=== PATIENT | male | born 1945 | race Caucasian/White ===

== ENCOUNTER 2017-08-29 10:31 | Inpatient (IN) | payer MEDICARE, BC ==
[2017-08-29] VITALS (20 sets, daily range): BP systolic 98–117; BP diastolic 55–62; PULSE 74–99; RESP 18–30; TEMP 98.8–99.3; O2SAT 92–97
[~2017-08-29] VITALS: Ht 180.3 cm; Wt 91.4 kg
[2017-08-29] MEDS ORDERED: AMLO10 PO (10:58)
[2017-08-29] MEDS ORDERED: VITA100064 PO (10:58)
[2017-08-29] MEDS ORDERED: ALTA10CA12 PO (10:58)
[2017-08-29] MEDS ORDERED: VENTAER INH (10:58)
[2017-08-29] MEDS ORDERED: ASPI-516 CHEW (10:58)
[2017-08-29] MEDS ORDERED: NEXI40CA PO (10:58)
[2017-08-29] MEDS ORDERED: ADVA250A INH (10:58)
[2017-08-29] MEDS ORDERED: SODIUM CHLOR 0.9% 1000 ML INJ 1,000 ML IV SCH (11:01)
--- NOTE | 2017-08-29 11:06 | PD ---
HPI Chief Complaint: Dizziness Time Seen by Provider: 10:45 Travel History International Travel<30 days: No Contact w/Intl Traveler<30days: No Traveled to known affect area: No History of Present Illness HPI This 72-year-old male says he has had increasing dizziness since the beginning of this month. He has not had trouble like this before. [place] he walked on the beach he noted that he was quite lightheaded. By dizziness he does not mean vertigo but a sensation that is going to pass out. He had a sudden loss of hearing in his left ear last week and went to urgent care and was given Medrol dose pack and prescription for meloxicam. He says he stopped taking the meloxicam because it did not seem to be helping he has a history of asthma. He has a history of NE and has had 2 stents placed. He does take aspirin all takes and Norvasc daily. He has a history of Muñoz's esophagus. He has had 5 or 6 colonoscopies but no problem is been found. He has a history of prostate cancer and has had the prostate removed and had 38 radiation treatments in 2003. He has noted some dark stools. He has noted that he has been bruising easily recently. PFSH Past Medical History Asthma: Yes Cancer: Yes (PROSTATE) GERD: Yes Hypertension: Yes Influenza Vaccination: Yes ?: Not Past Surgical History Cholecystectomy: Yes Coronary Stent: Yes (2) Prostatectomy: Yes (PROSTATE CA) Social History Alcohol Use: Yes (RARELY) Tobacco Use: No Substance Use: No Allergies-Medications (Allergen,Severity, Reaction): Coded Allergies: Penicillins (Verified Allergy, Severe, Itching, 08/29/17) Quinolones (Verified Allergy, Severe, Swelling, 08/29/17) acetaminophen (Verified Allergy, Severe, Hives, 08/29/17) hydrocodone (Verified Allergy, Severe, Itching, 08/29/17) meperidine (Verified Allergy, Unknown, 08/29/17) Reported Meds & Prescriptions Reported Meds & Active Scripts Active Reported Vitamin D3 (Cholecalciferol) 1,000 Unit Tab 1,000 Units PO DAILY Ventolin Hfa 18 GM Inh (Albuterol Sulfate) 90 Mcg/Act Aer 2 Puff INH Q6H PRN Advair Diskus Inh (Fluticasone-Salmeterol Inh) 250-50 Mcg/Blist Aer 1 Puff INH BID Rinse mouth after use. Aspirin 81 Mg Chew 81 Mg CHEW DAILY Nexium (Esomeprazole DR) 40 Mg Capdr 40 Mg PO DAILY Norvasc (Amlodipine Besylate) 10 Mg Tab 10 Mg PO DAILY Altace (Ramipril) 10 Mg Cap 10 Mg PO DAILY Review of Systems General / Constitutional: No: Fever, Chills Eyes: No: Diploplia HENT: Positive: Lightheadedness, No: Headaches Cardiovascular: No: Chest Pain or Discomfort, Palpitations Respiratory: No: Cough, Shortness of Breath Gastrointestinal: No: Nausea, Vomiting Genitourinary: No: Urgency, Frequency Musculoskeletal: No: Myalgias, Arthralgias Skin: No Rash, No Itching Neurologic: Positive: Weakness, Dizziness Endocrine: No: Heat Intolerance, Cold Intolerance Hematologic/Lymphatic: Positive: Easy Bruising Physical Exam Narrative GENERAL: Well-developed male. He is somewhat pale SKIN: Focused skin assessment warm/dry. HEAD: Atraumatic. Normocephalic. EYES: Pupils equal and round. No scleral icterus. No injection or drainage. Pale conjunctiva ENT: No nasal bleeding or discharge. Mucous membranes pink and moist. NECK: Trachea midline. No JVD. CARDIOVASCULAR: Regular rate and rhythm. No murmur appreciated. There is an ecchymotic area in the left pectoral region RESPIRATORY: No accessory muscle use. Clear to auscultation. Breath sounds equal bilaterally. GASTROINTESTINAL: Abdomen soft, non-tender, nondistended. Hepatic and splenic margins not palpable. Rectal exam stool is dark and guaiac positive MUSCULOSKELETAL: No obvious deformities. No clubbing. No cyanosis. No edema. NEUROLOGICAL: Awake and alert. No obvious cranial nerve deficits. Motor grossly within normal limits. Normal speech. PSYCHIATRIC: Appropriate mood and affect; insight and judgment normal. Data Data Last Documented VS Vital Signs Date Time Temp Pulse Resp B/P (MAP) Pulse Ox O2 Delivery O2 Flow Rate FiO2 08/29/17 13:51 84 20 110/62 (78) 97 Room Air 08/29/17 10:33 99.0 Orders Orders Complete Blood Count With Diff (08/29/17 11:01) Comprehensive Metabolic Panel (08/29/17 11:01) Prothrombin Time / Inr (Pt) (08/29/17 11:01) Act Partial Throm Time (Ptt) (08/29/17 11:01) Urinalysis - C+S If Indicated (08/29/17 11:01) Type And Screen (08/29/17 11:01) Ecg Monitoring (08/29/17 11:01) Iv Access Insert/Monitor (08/29/17 11:01) Oximetry (08/29/17 11:01) Sodium Chlor 0.9% 1000 Ml Inj (Ns 1000 M (08/29/17 11:01) Sodium Chloride 0.9% Flush (Ns Flush) (08/29/17 11:15) I-Stat Profile (08/29/17 11:15) Red Blood Cells (Rbc) (08/29/17 11:52) Platelet Pheresis (08/29/17 11:52) Ldh Serum (08/29/17 12:16) Haptoglobin (08/29/17 12:16) Ct Brain W/O Iv Contrast(Rout) (08/29/17 12:54) Admit Order (Ed Use Only) (08/29/17 13:48) Labs Laboratory Tests Test 08/29/17 11:15 08/29/17 11:17 White Blood Count 6.5 TH/MM3 Red Blood Count 2.54 MIL/MM3 Hemoglobin 7.8 GM/DL Bedside Hemoglobin G/DL Hematocrit 23.2 % Bedside Hematocrit % Mean Corpuscular Volume 91.4 FL Mean Corpuscular Hemoglobin 30.6 PG Mean Corpuscular Hemoglobin Concent 33.5 % Red Cell Distribution Width 12.4 % Platelet Count 5 TH/MM3 Mean Platelet Volume 6.8 FL Neutrophils (%) (Auto) 46.1 % Lymphocytes (%) (Auto) 30.5 % Monocytes (%) (Auto) 20.6 % Eosinophils (%) (Auto) 2.1 % Basophils (%) (Auto) 0.7 % Neutrophils # (Auto) 3.1 TH/MM3 Lymphocytes # (Auto) 2.0 TH/MM3 Monocytes # (Auto) 1.3 TH/MM3 Eosinophils # (Auto) 0.1 TH/MM3 Basophils # (Auto) 0.0 TH/MM3 CBC Comment AUTO DIFF Differential Total Cells Counted 100 Neutrophils % (Manual) 45 % Lymphocytes % 35 % Monocytes % 18 % Eosinophils % 2 % Neutrophils # (Manual) 2.9 TH/MM3 Nucleated Red Blood Cells 1 /100 WBC Differential Comment FINAL DIFF MANUAL Platelet Estimate RARE Platelet Morphology Comment NORMAL Haptoglobin 129 MG/DL Prothrombin Time 11.2 SEC Prothromb Time International Ratio 1.1 RATIO Activated Partial Thromboplast Time 22.1 SEC Bedside Sodium 140 MMOL/L Bedside Potassium 4.3 MMOL/L Bedside Chloride 102 MMOL/L Bedside Blood Urea Nitrogen 37 MG/DL Bedside Creatinine 1.3 MG/DL Bedside Glucose 113 MG/DL Lactate Dehydrogenase 784 U/L Urine Collection Type CLEAN CATCH Urine Color YELLOW Urine Turbidity CLEAR Urine pH 5.5 Urine Specific [place] 1.015 Urine Protein NEG mg/dL Urine Glucose (UA) NEG mg/dL Urine Ketones NEG mg/dL Urine Occult Blood TRACE Urine Nitrite NEG Urine Bilirubin NEG Urine Urobilinogen 0.2 MG/DL Urine Leukocyte Esterase NEG Urine RBC 4-9 /hpf Urine Squamous Epithelial Cells 0-5 /hpf Urine Hyaline Casts 0-2 /lpf Microscopic Urinalysis Comment CULT NOT INDICATED Urine Collection Time 11:17 [facility] Medical Decision Making Medical Screen Exam Complete: Yes Emergency Medical Condition: Yes Medical Record Reviewed: Yes Differential Diagnosis Differential includes GI bleed, anemia Narrative Course Hemoglobin is 7.8. His platelet count is 5000. PT PTT is normal. I discussed the case with Dr. Garcia. She requests LDH and haptoglobin to screen for hemolytic process. She does recommend platelet transfusion as the patient is actively bleeding. Patient will be transferred to the main hospital to the intensive care unit under Dr. Marcus's care Diagnosis Primary Impression: Anemia Additional Impressions: Thrombocytopenia GI bleed Admitting Information Admitting Physician Requests: Admit Augustus Alvarez MD Aug 29, 2017 11:06
[2017-08-29] MEDS ORDERED: SODIUM CHLORIDE 0.9% FLUSH 10 ML FLUSH IVF PRN (11:15)
[2017-08-29 11:23] LABS: BILIRUBIN, URINE NEG (NEG); BLOOD, URINE TRACE (NEG); GLUCOSE,URINE NEG (NEG); KETONE, URINE NEG (NEG); NITRITE,URINE NEG (NEG); PH, URINE 5.5 (5.0-8.5); URINE COLOR YELLOW (YELLW/STRAW); URINE LEUKOCYTE ESTERASE NEG (NEG)
[2017-08-29 11:34] LABS: AUTOMATED NEUTROPHIL # 3.1 TH/MM3 (1.8-7.7); BASOPHIL % 0.7 % (0.0-2.0); EOSINOPHIL # 0.1 TH/MM3 (0-0.4); EOSINOPHIL % 2.1 % (0.0-4.0); HEMATOCRIT 23.2 % (39.0-51.0); HEMOGLOBIN 7.8 GM/DL (13.0-17.0); LYMPH % 30.5 % (9.0-44.0); MEAN CELL VOLUME 91.4 FL (80.0-100.0); MEAN CORPUSCULAR HEMOGLOBIN 30.6 PG (27.0-34.0); MEAN CORPUSCULAR HGB CONC 33.5 % (32.0-36.0); MEAN PLATELET VOLUME 6.8 FL (7.0-11.0); MONO % 20.6 % (0.0-8.0); MONOCYTE # 1.3 TH/MM3 (0-0.9); NEUT % 46.1 % (16.0-70.0); RED BLOOD COUNT 2.54 MIL/MM3 (4.50-5.90); RED CELL DISTRIBUTION WIDTH 12.4 % (11.6-17.2); WHITE BLOOD COUNT 6.5 TH/MM3 (4.0-11.0)
[2017-08-29 11:41] LABS: PLATELET COUNT 5 TH/MM3 (150-450)
[2017-08-29 11:47] LABS: HYALINE CAST, URINE 0-2 /lpf (RARE)
[2017-08-29 11:48] LABS: SQUAMOUS EPITHELIAL CELL URINE 0-5 /hpf (0-5)
[2017-08-29 11:57] LABS: INTERNATIONAL NORMALIZED RATIO 1.1 RATIO; PROTHROMBIN TIME - PATIENT 11.2 SEC (9.8-11.6)
[2017-08-29 12:01] LABS: CORRECTED NUCLEATED RBC 1 /100 WBC (0-0); LYMPHOCYTES 35 % (9-44); MONOCYTES 18 % (0-8); NEUTROPHIL # MANUAL DIFF 2.9 TH/MM3 (1.8-7.7); NUCLEATED RED BLOOD CELL 1 (0-0); POLYS (SEG NEUTROPHILS) 45 % (16-70)
--- NOTE | 2017-08-29 14:32 | RADRPT ---
EXAM DATE/TIME: 08/29/2017 13:22 [place] COMPARISON: No previous studies available for comparison. INDICATIONS : Dizziness. Thrombocytopenia. Evaluate for hemorrhage. RADIATION DOSE: 59.46 CTDIvol (mGy) MEDICAL HISTORY : Carcinoma, prostate. Cardiovascular disease Gastroesophageal reflux disease.Hypertension. Asthma. SURGICAL HISTORY : Prostatectomy. Cholecystectomy.Coronary artery stent. ENCOUNTER: Initial ACUITY: 2 weeks PAIN SCALE: 0/10 LOCATION: cranial TECHNIQUE: Multiple contiguous axial images were obtained of the head. Using automated exposure control and adj ustment of the mA and/or kV according to patient size, radiation dose was kept as low as reasonably a chievable to obtain optimal diagnostic quality images. DICOM format image data is available electro nically for review and comparison. FINDINGS: CEREBRUM: Focal increased density in the right anterior falx at the mid convexity level. The ventricles are nor mal for age. No evidence of midline shift, mass lesion, hemorrhage or acute infarction. POSTERIOR FOSSA: The cerebellum and brainstem are intact. The 4th ventricle is midline. The cerebellopontine angle i s unremarkable. EXTRACRANIAL: The visualized portion of the orbits is intact. SKULL: The calvaria is intact. No evidence of skull fracture. CONCLUSION: 1. Small focal region of increased density in the anterior falx concerning for hemorrhage. Differenti al considerations include dystrophic calcification. Recommend close interval followup CT examination. Lopez Taylor MD on August 29, 2017 at 13:32 Board Certified Radiologist. This report was verified electronically.
[2017-08-29] MEDS ORDERED: NURSING INFORMATION XX SCH (15:45)
[2017-08-29] MEDS ORDERED: CHLORHEXIDINE GLUCONATE 2 % 1 PACK (2 CLOTHS) TOP PRN (15:45)
[2017-08-29] MEDS: RESP: ALBUTEROL 2.5 MG/IPRATROPIUM 0.5 MG NEB (SCH) INH ×2 (15:57→19:25)
[2017-08-29] MEDS ORDERED: POTASSIUM PHOSPHATE MONOBASIC 500 MG TAB PO/TUBE PRN (16:00)
[2017-08-29] MEDS ORDERED: POTASSIUM CHLOR 40 MEQ PREMIX 100 ML IV PRN ×2 (16:00)
[2017-08-29] MEDS ORDERED: POTASSIUM PHOSPHATE MONOBASIC 500 MG TAB PO PRN (16:00)
[2017-08-29] MEDS ORDERED: MAGNESIUM SULFATE INJ 2 GM in SODIUM CHLORIDE 0.9% INJ 96 ML IV PRN (16:00)
[2017-08-29] MEDS ORDERED: POTASSIUM PHOSPHATE INJ 30 MMOL in SODIUM CHLOR 0.9% 250 ML INJ 250 ML IV PRN (16:00)
[2017-08-29] MEDS ORDERED: LACTULOSE SYRUP 20 GM/30 ML CUP PO PRN (16:00)
[2017-08-29] MEDS ORDERED: POTASSIUM CHLOR 20 MEQ PREMIX 100 ML IV PRN ×2 (16:00)
[2017-08-29] MEDS ORDERED: SODIUM PHOSPHATE INJ 30 MMOL in SODIUM CHLOR 0.9% 250 ML INJ 240 ML IV PRN (16:00)
[2017-08-29] MEDS ORDERED: MAGNESIUM OXIDE 400 MG TAB PO PRN (16:00)
[2017-08-29] MEDS ORDERED: BISACODYL 10 MG SUPP RECTAL PRN (16:00)
[2017-08-29] MEDS ORDERED: RESP: ALBUTEROL 2.5 MG/IPRATROPIUM 0.5 MG NEB (PRN) INH (16:00)
[2017-08-29] MEDS ORDERED: MAGNESIUM SULFATE INJ 4 GM in SODIUM CHLORIDE 0.9% INJ 92 ML IV PRN (16:00)
[2017-08-29] MEDS ORDERED: MAGNESIUM HYDROXIDE SUSP 30 ML CUP PO PRN (16:00)
[2017-08-29] MEDS ORDERED: SENNOSIDES 8.6 MG TAB PO PRN (16:00)
[2017-08-29] MEDS ORDERED: POTASSIUM CHLORIDE 25 MEQ EFFERVESCENT TAB PO PRN (16:00)
[2017-08-29] MEDS: SODIUM CHLOR 0.9% 1000 ML INJ 1,000 ML IV SCH ×2 (16:09→18:57)
--- NOTE | 2017-08-29 17:40 | HHI.HP ---
HPI Service Critical Care Medicine Primary Care Physician Non-Staff Admission Diagnosis GI BLEED, THROMBOCYTOPENIA Diagnosis: Travel History International Travel<30 Days: No Contact w/Intl Traveler <30 Da: No Traveled to Known Affected Are: No History of Present Illness History of Present Illness HPI This is a 72-year-old male that presented to [facility] emergency room with complaints of increasing dizziness since the beginning of this month. Approximately 2 weeks ago he reported to an urgent care center and was diagnosed with benign paroxysmal vertigo and given meclizine Medrol Ebenezer and Ultram. His symptoms progressively worsened and he reported to the emergency room today, after almost falling this morning. The patient discontinued taking meloxicam shortly after the prescription was initiated, stating that it was not helping. He has noted some dark stools. He has noted that he has been bruising easily recently. Patient also complains of acute back pain that started approximately 1 week ago. Laboratory and imaging studies were performed in the ED and the patient was noted to have severe thrombocytopenia with a platelet count of 5 , anemia with a hemoglobin 7.8 . Hematology was consulted and the patient LDH and haptoglobin laboratory studies are pending . CT brain revealed small focal density region possible in the anterior falx concerning for hemorrhage . The patient's medical history is significant for an GA in 2003 at which point he had 2 stents placed. The patient reports he was put on Plavix for several weeks then discontinued, but continues to aspirin. Patient's pertinent medical history also includes hypertension well controlled with Norvasc, Muñoz's esophagus he has had follow-up endoscopies evaluated every 2 years last procedure performed approximately 1 year ago which stated no change and he continues on Nexium. He has a history of prostate cancer and has had the prostate removed and had 38 radiation treatments in 2003. Critical care medicine was consulted. Upon my evaluation the patient was hemodynamically stable BP 104/55, heart rate 91. The patient is planned for stat transfer to [facility], and is pending transfusions of 2 PRBC, 1 of PLTs. Hematology and gastroenterology have been consulted. I have discussed the patient with Dr. Hong. History PFS Past Medical History Asthma: Yes Cancer: Yes (PROSTATE) GERD: Yes Hypertension: Yes Influenza Vaccination: Yes ?: Not Past Surgical History Cholecystectomy: Yes Coronary Stent: Yes (2) Prostatectomy: Yes (PROSTATE CA) Social History Alcohol Use: Yes (RARELY) Tobacco Use: No Substance Use: No Allergies-Medications Allergies-Medications (Allergen,Severity, Reaction): Coded Allergies: Penicillins (Verified Allergy, Severe, Itching, 08/29/17) Quinolones (Verified Allergy, Severe, Swelling, 08/29/17) acetaminophen (Verified Allergy, Severe, Hives, 08/29/17) hydrocodone (Verified Allergy, Severe, Itching, 08/29/17) meperidine (Verified Allergy, Unknown, 08/29/17) Reported Meds & Prescriptions Reported Meds & Active Scripts Active Reported Vitamin D3 (Cholecalciferol) 1,000 Unit Tab 1,000 Units PO DAILY Ventolin Hfa 18 GM Inh (Albuterol Sulfate) 90 Mcg/Act Aer 2 Puff INH Q6H PRN Advair Diskus Inh (Fluticasone-Salmeterol Inh) 250-50 Mcg/Blist Aer 1 Puff INH BID Rinse mouth after use. Aspirin 81 Mg Chew 81 Mg CHEW DAILY Nexium (Esomeprazole DR) 40 Mg Capdr 40 Mg PO DAILY Norvasc (Amlodipine Besylate) 10 Mg Tab 10 Mg PO DAILY Altace (Ramipril) 10 Mg Cap 10 Mg PO DAILY ROS Review of Systems General / Constitutional: No: Fever, Chills Eyes: No: Diploplia HENT: Positive: Lightheadedness, No: Headaches Cardiovascular: No: Chest Pain or Discomfort, Palpitations Respiratory: No: Cough, Shortness of Breath Gastrointestinal: No: Nausea, Vomiting Genitourinary: No: Urgency, Frequency Musculoskeletal: No: Myalgias, Arthralgias Skin: No Rash, No Itching Neurologic: Positive: Weakness, Dizziness Endocrine: No: Heat Intolerance, Cold Intolerance Hematologic/Lymphatic: Positive: Easy Bruising Physical Exam Vital Signs Vital Signs Date Time Temp Pulse Resp B/P (MAP) Pulse Ox O2 Delivery O2 Flow Rate FiO2 08/29/17 16:00 94 21 08/29/17 15:23 88 20 104/55 (71) 95 Room Air 08/29/17 13:51 84 20 110/62 (78) 97 Room Air 08/29/17 12:27 88 20 103/59 (74) 96 Room Air 08/29/17 11:49 74 20 98/58 (71) 95 Room Air 08/29/17 11:19 20 95 Room Air 08/29/17 10:33 99.0 99 18 113/56 (40) 95 Physical Exam GENERAL: Well-developed well-nourished male in mild distress, currently lying semirecumbent on stretcher SKIN: Warm and dry. HEAD: Atraumatic. Normocephalic. EYES: Pupils equal and round. No scleral icterus. No injection or drainage. ENT: No nasal bleeding or discharge. Mucous membranes pink and moist. NECK: Trachea midline. No JVD. CARDIOVASCULAR: Normal rate, regular rhythm. RESPIRATORY: No accessory muscle use. Clear to auscultation. Breath sounds equal bilaterally. GASTROINTESTINAL: Abdomen soft, non-tender, obese nondistended. No guarding. Bowel sounds active. MUSCULOSKELETAL: Extremities without clubbing, cyanosis, or edema. No obvious deformities. NEUROLOGICAL: GCS 15. awake and alert. RASS 0. No gross focal/sensory deficits. Follows commands in all 4 extremities. Laboratory Laboratory Tests Test 08/29/17 11:15 08/29/17 11:17 White Blood Count 6.5 Red Blood Count 2.54 Hemoglobin 7.8 Bedside Hemoglobin Hematocrit 23.2 Bedside Hematocrit Mean Corpuscular Volume 91.4 Mean Corpuscular Hemoglobin 30.6 Mean Corpuscular Hemoglobin Concent 33.5 Red Cell Distribution Width 12.4 Platelet Count 5 Mean Platelet Volume 6.8 Neutrophils (%) (Auto) 46.1 Lymphocytes (%) (Auto) 30.5 Monocytes (%) (Auto) 20.6 Eosinophils (%) (Auto) 2.1 Basophils (%) (Auto) 0.7 Neutrophils # (Auto) 3.1 Lymphocytes # (Auto) 2.0 Monocytes # (Auto) 1.3 Eosinophils # (Auto) 0.1 Basophils # (Auto) 0.0 CBC Comment AUTO DIFF Differential Total Cells Counted 100 Neutrophils % (Manual) 45 Lymphocytes % 35 Monocytes % 18 Eosinophils % 2 Neutrophils # (Manual) 2.9 Nucleated Red Blood Cells 1 Differential Comment FINAL DIFF MANUAL Platelet Estimate RARE Platelet Morphology Comment NORMAL Haptoglobin 129 Prothrombin Time 11.2 Prothromb Time International Ratio 1.1 Activated Partial Thromboplast Time 22.1 Bedside Sodium 140 Bedside Potassium 4.3 Bedside Chloride 102 Bedside Blood Urea Nitrogen 37 Bedside Creatinine 1.3 Bedside Glucose 113 Lactate Dehydrogenase 784 Urine Collection Type CLEAN CATCH Urine Color YELLOW Urine Turbidity CLEAR Urine pH 5.5 Urine Specific [place] 1.015 Urine Protein NEG Urine Glucose (UA) NEG Urine Ketones NEG Urine Occult Blood TRACE Urine Nitrite NEG Urine Bilirubin NEG Urine Urobilinogen 0.2 Urine Leukocyte Esterase NEG Urine RBC 4-9 Urine Squamous Epithelial Cells 0-5 Urine Hyaline Casts 0-2 Microscopic Urinalysis Comment CULT NOT INDICATED Urine Collection Time 11:17 Result Diagram: 08/29/17 1115 Imaging Last Impressions Head CT 08/29/17 1254 Signed Impressions: Service Date/Time: Tuesday, August 29, 2017 13:22 - CONCLUSION: 1. Small focal region of increased density in the anterior falx concerning for hemorrhage. Differential considerations include dystrophic calcification. Recommend close interval followup CT examination. Lopez Taylor MD Septic Shock Reassessment Septic shock perfusion: reassessment completed Caprini VTE Risk Assessment Caprini VTE Risk Assessment: Mod/High Risk (score >= 2) VTE Pharm Contraindication: Thrombocytopenia(<50) Caprini Risk Assessment Model Point Value = 1 Point Value = 2 Point Value = 3 Point Value = 5 Age 41-60 Minor surgery BMI > 25 kg/m2 Swollen legs Varicose veins or History of unexplained or recurrent spontaneous Oral contraceptives or hormone replacement Sepsis (< 1 month) Serious lung disease, including pneumonia (< 1 month) Abnormal pulmonary function Acute myocardial infarction Congestive heart failure (< 1 month) History of inflammatory bowel disease Medical patient at bed rest Age 61-74 Arthroscopic surgery Major open surgery (> 45 min) Laparoscopic surgery (> 45 min) Malignancy Confined to bed (> 72 hours) Immobilizing plaster cast Central venous access Age >= 75 History of VTE Family history of VTE Factor V Leiden Prothrombin [id number] Lupus anticoagulant Anticardiolipin antibodies Elevated serum homocysteine Heparin-induced thrombocytopenia Other congenital or acquired thrombophilia Stroke (< 1 month) Elective arthroplasty Hip, pelvis, or leg fracture Acute spinal cord injury (< 1 month) Prophylaxis Regimen Total Risk Factor Score Risk Level Prophylaxis Regimen 0-1 Low Early ambulation 2 Moderate Order ONE of the following: *Sequential Compression Device (SCD) *Heparin 5000 units SQ BID 3-4 Higher Order ONE of the following medications: *Heparin 5000 units SQ TID *Enoxaparin/Lovenox 40 mg SQ daily (WT < 150 kg, CrCl > 30 mL/min) *Enoxaparin/Lovenox 30 mg SQ daily (WT < 150 kg, CrCl > 10-29 mL/min) *Enoxaparin/Lovenox 30 mg SQ BID (WT < 150 kg, CrCl > 30 mL/min) AND/OR *Sequential Compression Device (SCD) 5 or more Highest Order ONE of the following medications: *Heparin 5000 units SQ TID (Preferred with Epidurals) *Enoxaparin/Lovenox 40 mg SQ daily (WT < 150 kg, CrCl > 30 mL/min) *Enoxaparin/Lovenox 30 mg SQ daily (WT < 150 kg, CrCl > 10-29 mL/min) *Enoxaparin/Lovenox 30 mg SQ BID (WT < 150 kg, CrCl > 30 mL/min) AND *Sequential Compression Device (SCD) Assessment and Plan Problem List: (1) Anemia ICD Code: D64.9 - Anemia, unspecified Status: Acute (2) Thrombocytopenia ICD Code: D69.6 - Thrombocytopenia, unspecified Status: Acute (3) GI bleed ICD Code: K92.2 - Gastrointestinal hemorrhage, unspecified Status: Acute (4) Prostate cancer ICD Code: C61 - Malignant neoplasm of prostate Status: Resolved (5) Hypertension ICD Code: I10 - Essential (primary) hypertension Status: Chronic (6) Asthma ICD Code: J45.909 - Unspecified asthma, uncomplicated Status: Chronic (7) History of GA (myocardial infarction) ICD Code: I25.2 - Old myocardial infarction (8) Back pain ICD Code: M54.9 - Dorsalgia, unspecified Status: Acute (9) BMI 30.0-30.9,adult ICD Code: Z68.30 - Body mass index (BMI) 30.0-30.9, adult Status: Chronic Assessment and Plan Assessment This is a 72-year-old male with anemia and severe thrombocytopenia now presenting with progressive dizziness severe back pain, brain imaging study suggestive of possible hemorrhage. The patient is critically ill. Admit to ICU. Plan by systems: Neurologic: Possible hemorrhage Back pain 08/29-CT brain small focal region increased density in anterior falx concerning for hemorrhage Repeat CT brain in 12 hours-rule out hemorrhage Obtain CT thoracic and lumbar Neuro checks per ICU protocol Avoid sedative type medications Strict bedrest Obtain carotid Doppler studies Has allergy to acetaminophen, consider small doses of fentanyl if needed for pain scale 7-10 Respiratory: Asthma Duo nebs every 6 hours scheduled and every 2 hours as needed Continue Advair daily, patient's home med and Ventolin as needed Patient's last asthma attack approximately 6 months Provide O2 1-4 L/min if needed to maintain O2 saturation greater than 92% Incentive spirometry while awake Cardiovascular: History of GA- S/P stent placement 2 (2003) Coronary artery disease Hypertension maintain mean arterial pressure greater than 65 Continue Norvasc patient's home medication, will hold Ramipril for now Patient normally takes aspirin daily will hold for now Obtain baseline EKG Telemetry showing sinus rhythm Labetalol 10 mg every 6 hours for systolic blood pressure greater than 160 Renal: History of prostate cancer status post XRT No [place] indicated at this time -- Strict I/Os FEN/GI: Muñoz's esophagus GI bleed Obtain BMP follow-up result Electrolyte replacements per ICU protocol Maintain n.p.o. status for now Zofran for nausea Protonix GI prophylaxis normal saline 84 cc/hour GI consulted discussed w/ Dr. Hong Heme/ID: Anemia Thrombocytopenia Heme-Onc consulted Dr. Duron discussed case with Dr. Rosario Follow-up LDH and haptoglobin level Transfused 2 units of packed red blood cells, and one 6 pack of platelets repeat labs 1 hour posttransfusion Endocrine: Glucose monitoring per ICU protocol -- SSI Prophylaxis: GI Prophylaxis Famotidine DVT Prophylaxis -- SCDs No chemical DVT prophylaxis in the setting of thrombocytopenia Lines: Peripheral IVs 2 providing adequate access. Central line if indicated Dispo: my billing statement This patient remains critically ill with one or more organ systems which are or may become a threat to life. I have spent in excess of 49 minutes discontinuously in the care and management of this patient. This time is exclusive of procedures, and includes, but is not limited to, evaluation of the patient, review of the medical record, discussions with family, consultants, nursing staff, or respiratory therapy, and documentation in the medical record. Code Status Full Discussed Condition With Discussed case with Dr. Rosario, Dr. Hong, ED RN, GEAR DESIGN ENGINEER (Ame) Problem Qualifiers (1) Anemia: Qualified Codes: D64.9 - Anemia, unspecified (2) Back pain: Qualified Codes: M54.9 - Dorsalgia, unspecified Trudy Marcus MD Aug 29, 2017 17:40
--- NOTE | 2017-08-29 20:44 | MB ---
cc: Shahla Duron MD,Trudy Mercer MD DATE: 08/29/2017 REFERRING PHYSICIAN: Dr. Trudy Marcus. CHIEF COMPLAINT: Dr. Marcus requests a consultation for Mr. Rico with severe thrombocytopenia associated with anemia. HISTORY OF PRESENT ILLNESS: Mr. Rico is a 72-year-old man with multiple medical problems. He has a history of prostate cancer, status post prostatectomy. He has coronary artery disease, status post stent placement. He has had a recent fall before coming down to [place] and had a rotator cuff injury. He has had a series of physical therapy. He and his have come down to [place] 08/12/2017. He was doing fine, walking on the beach. On the fourth night, he developed severe back pain, prompting him to buy Icy Hot compress in the pharmacy across the street. The temporary relief did not work. This prompted him to go to the urgent care center where he was given a course of anti-inflammatory medication and pain medication, which he states helped somewhat. He developed progressive symptoms of shortness of breath. He noticed some bruising over the past week. He lost the hearing in his left ear all of the sudden. It has not returned. Because of the hearing he went into the urgent care, a second time. He had worsening dizziness. He had a sensation of passing out and therefore came to the emergency room. He was seen by Dr. Tirado earlier on in the afternoon. CBC shows a hemoglobin of 7.8, platelet count of 5000, mean platelet volume was low. His BUN is 37, creatinine 1.3. The case was discussed with Dr. Tirado. An LDH was sent and it was elevated at 784. Haptoglobin is normal, which argues against a microangiopathic hemolytic anemia. However, he was noted to have heme positive stools after a rectal examination. There is a questionable history of dark stools. Mr. Rico was admitted to the ICU and subsequently transferred to [facility] under the care of Dr. Marcus. He is in the process of receiving his second unit of platelet transfusion. He has bruising and petechia on his abdomen. He has no overt bleed. His urine is clear. Hematology/Oncology is consulted for the cytopenias. On further questioning, Mr. Rico denies any fevers. He was, however, with low grade temperature until his blood transfusions. He has a low saturation. His back pain is in his mid back. His hearing has not returned. His CT scan of the head is significant for a small focal region of increased density in the falx concerning for hemorrhage. No abnormality noted in the middle ear, although the current imaging study may not be sensitive enough to detect that. He had sweats almost weekly while he was down here. He was not having sweats,back home. He denies any problems with the blood previously. He was under the care of a primary physician and is up-to-date with his screening examination. He has a history of Muñoz's esophagus that is viewed every 2 years and has not changed. His colonoscopy was negative. He denies any headaches or vision changes. The rest of his review of systems is negative. PAST MEDICAL HISTORY: Prostate cancer, asthma, gastroesophageal reflux, Muñoz's esophagus, hypertension, new anemia, new thrombocytopenia, rotator cuff injury, back pain. PAST SURGICAL HISTORY: Prostatectomy, cholecystectomy, coronary stent placement, thoracentesis for a pleural effusion. SOCIAL HISTORY: He drinks alcohol rarely. Denies any tobacco or illicit drug use. He is . He is with his down in [place] for the month. ALLERGIES: PENICILLIN, QUINOLONES, acetaminophen, hydrocodone, MEPERIDINE. CURRENT MEDICATIONS: 1. Protonix. 2. Norvasc. 3. Chlorhexidine. 4. Madina-Colace. 5. Symbicort. 6. Albuterol. 7. Fentanyl p.r.n. 8. Ondansetron p.r.n. 9. DuoNebs p.r.n. 10. Senna p.r.n. 11. Lactulose p.r.n. PHYSICAL EXAMINATION: VITAL SIGNS: Temperature 98.8, heart rate 85, respiratory rate 26, blood pressure 114/56, saturation 93%. GENERAL: Mr. Rico is a well-developed, robust-appearing, 72-year-old man with generalized pallor. EYES: Her pupils round, reactive to light and accommodation. Conjunctivae are pale. Oropharynx is clear. NECK: Supple. SKIN: There is bruising on his upper arms. LUNGS: Clear. CARDIOVASCULAR: Reveals normal rate and rhythm. ABDOMEN: Distended, large, but benign. Petechia noted. EXTREMITIES: Lower extremity with mild asymmetry which is chronic. Left leg is more prominent than the right. He has an old injury. He has occasional petechia on the lower extremity and some bruising. LABORATORY DATA: As described above. ASSESSMENT AND PLAN: Mr. Rico is a 72-year-old man with multiple medical problems. He presents with severe thrombocytopenia and anemia, symptomatic. I discussed with Mr. Rico my concern for underlying bone marrow disorder. He has a normocytic anemia and a platelet count that has decreased, which is unlike idiopathic thrombocytopenic purpura given the decrease in the mean platelet volume. He also has bone pain, back pain, as well as the sweats that suggests a more systemic manifestation of bone marrow disorder. I will review peripheral smear. Ultimately, I suspect we will need a bone marrow biopsy evaluation to determine the nature of the above. Nucleated red cells are seen on peripheral smear. There are no acute blasts. LDH is elevated, which argues for underlying bone marrow disorder. He is being transfused platelets at present. I plan to check a post-platelet transfusion platelet count. This will assist us in ruling out or excluding ITP. If it were ITP his platelet count would not increase. Our goal is to keep his platelet count above 20,000. He does not appear to be acutely bleeding. He gives a questionable history of dark stools. He reports that he was surprised that the stool Hemoccult was positive, which was done via a rectal exam and a platelet count of 5000. Red cell transfusions are also in order. We will check a Lamont test to rule out hemolytic anemia/Kahn syndrome. Normal haptoglobin argues against this. TTP is considered. There is no thrombotic process. He has low-grade temperature. The LDH is high, but not significantly high. I am unable to exclude TTP completely. A peripheral smear will be reviewed for schistocytes. The LDH will be monitored. An empiric transfusion of FFP will be given. His hearing loss will be evaluated with MRI. MD GABY Harris/JONATHAN , 08:03 PM , 08:43 PM
[2017-08-29] MEDS: DOCUSATE SODIUM 50 MG/SENNA 8.6 MG TAB PO SCH (21:00)
[2017-08-29] MEDS ORDERED: NON-FORMULARY DRUG (Fluticasone-Salmeterol Inh (Advair Diskus Inh) 1 PUFF) INH SCH (21:00)
[2017-08-29] MEDS: BUDESONIDE-FORMOTEROL 160/4.5 MCG INHALER INH SCH (21:19)
[2017-08-29] MEDS: SODIUM CHLORIDE 0.9% FLUSH 10 ML FLUSH IV FLUSH SCH (21:20)
[2017-08-29 21:57] LABS: AUTOMATED NEUTROPHIL # 1.9 TH/MM3 (1.8-7.7); BASOPHIL # 0.1 TH/MM3 (0-0.2); BASOPHIL % 1.3 % (0.0-2.0); EOSINOPHIL # 0.1 TH/MM3 (0-0.4); EOSINOPHIL % 1.9 % (0.0-4.0); LYMPH % 35.1 % (9.0-44.0); LYMPHOCYTE # 2.4 TH/MM3 (1.0-4.8); MEAN CELL VOLUME 92.1 FL (80.0-100.0); MEAN CORPUSCULAR HEMOGLOBIN 32.8 PG (27.0-34.0); MEAN CORPUSCULAR HGB CONC 35.6 % (32.0-36.0); MONO % 33.7 % (0.0-8.0); MONOCYTE # 2.3 TH/MM3 (0-0.9); PLATELET COUNT 47 TH/MM3 (150-450); RED BLOOD COUNT 2.13 MIL/MM3 (4.50-5.90); RED CELL DISTRIBUTION WIDTH 13.4 % (11.6-17.2); WHITE BLOOD COUNT 6.8 TH/MM3 (4.0-11.0)
[2017-08-29 22:24] LABS: HEMATOCRIT 19.7 % (39.0-51.0)
[2017-08-29 22:28] LABS: ALBUMIN 2.9 GM/DL (3.4-5.0); AST (GOT) 31 U/L (15-37); BICARBONATE 23.2 MEQ/L (21.0-32.0); BLOOD UREA NITROGEN 31 MG/DL (7-18); CHLORIDE 108 MEQ/L (98-107); CREATININE 1.03 MG/DL (0.60-1.30); DIRECT BILIRUBIN ADULT 0.3 MG/DL (0.0-0.2); GLOMERULAR FILTRATION RATE 71 ML/MIN (>89); GLUCOSE,RANDOM 82 MG/DL (74-106); SODIUM (NA) 144 MEQ/L (136-145)
[2017-08-29 22:31] LABS: ALKALINE PHOSPHATASE 78 U/L (45-117); ALT (GPT) 28 U/L (12-78); INDIRECT BILIRUBIN 0.8 MG/DL (0.0-0.8); PHOSPHORUS 3.6 MG/DL (2.5-4.9); TOTAL BILIRUBIN ADULT 1.1 MG/DL (0.2-1.0); TOTAL PROTEIN 5.8 GM/DL (6.4-8.2)
[2017-08-29 22:32] LABS: RETIC % 0.7 % (0.4-3.0)
[2017-08-29 23:24] LABS: BANDS 18 % (0-6); BASOPHILS 2 % (0-2); BLASTS 18 % (0-0); CORRECTED NUCLEATED RBC 6 /100 WBC (0-0); LYMPHOCYTES 31 % (9-44); METAMYELOCYTES 1 % (0-1); MONOCYTES 4 % (0-8); NEUTROPHIL # MANUAL DIFF 3.1 TH/MM3 (1.8-7.7); NUCLEATED RED BLOOD CELL 6 (0-0); POLYS (SEG NEUTROPHILS) 26 % (16-70)
[2017-08-30] VITALS (35 sets, daily range): BP systolic 119–152; BP diastolic 57–74; PULSE 82–98; RESP 20–46; TEMP 98.4–98.9; O2SAT 90–97
--- NOTE | 2017-08-30 02:28 | RADRPT ---
EXAM DATE/TIME: 08/30/2017 01:37 [facility] COMPARISON: CT BRAIN W/O CONTRAST, August 29, 2017, 13:22. INDICATIONS : Follow up hemmorhage. RADIATION DOSE: 66.34 CTDIvol (mGy) MEDICAL HISTORY : Hypertension. Carcinoma, prostate. Cardiovascular disease. SURGICAL HISTORY : Coronary artery stent. ENCOUNTER: Subsequent ACUITY: 2 days PAIN SCALE: 0/10 LOCATION: cranial TECHNIQUE: Multiple contiguous axial images were obtained of the head. Using automated exposure control and adj ustment of the mA and/or kV according to patient size, radiation dose was kept as low as reasonably a chievable to obtain optimal diagnostic quality images. DICOM format image data is available electro nically for review and comparison. FINDINGS: 1 cm focus of perifalcine subdural blood again seen in the frontal region, not significantly changed. No new or other areas of hemorrhage demonstrated. No mass, mass effect or midline shift. There is no evidence of an acute ischemic event. CONCLUSION: Small frontal maddy-falcine subdural blood is unchanged. Tim Jones MD on August 30, 2017 at 2:25 Board Certified Radiologist. This report was verified electronically.
--- NOTE | 2017-08-30 02:32 | RADRPT ---
EXAM DATE/TIME: 08/30/2017 01:37 [facility] COMPARISON: No previous studies available for comparison. INDICATIONS : Back pain. RADIATION DOSE: 31.39 CTDIvol (mGy) ; Combined studies - Thoracic Spine/Lumbar Spine MEDICAL HISTORY : Carcinoma, prostate. Hypertension. SURGICAL HISTORY : Coronary artery stent. Prostatectomy. ENCOUNTER: Initial ACUITY: 1 day PAIN SCALE: 8/10 LOCATION: Paraspinal TECHNIQUE: Volumetric scanning of the thoracic spine was performed. Multiplanar reconstructions in the sagittal , coronal and oblique axial planes were performed. Using automated exposure control and adjustment o f the mA and/or kV according to patient size, radiation dose was kept as low as reasonably achievable to obtain optimal diagnostic quality images. DICOM format image data is available electronically f or review and comparison. FINDINGS: There is levoconvex curvature of the upper thoracic spine. The thoracic kyphosis is slightly exaggera kareem. No fractures or subluxations are demonstrated. Vertebral bodies have normal height. Mild disc space narrowing and very mild anterolateral osseous ridging seen at essentially all levels. There is also mild, diffuse costovertebral and facet osteoarthritis. No focal bone lesion of the thoracic spine. Complex appearing cysts are seen of the upper poles of each kidney measuring approximately 3.6 cm on the right and 3.5 cm on the left. CONCLUSION: 1. No fracture, subluxation or other acute abnormality of the thoracic spine. 2. Scoliosis and mild multifocal degenerative changes as above. 3. Complex appearing cystic structures of the upper poles of both kidneys. Comparison to any previous outside facility studies is recommended to confirm chronicity and stability. Contrast enhanced study of the abdomen suggested if felt clinically indicated, preferably MRI if there are no contraindicati ons. Tim Jones MD on August 30, 2017 at 2:27 Board Certified Radiologist. This report was verified electronically.
--- NOTE | 2017-08-30 02:38 | RADRPT ---
EXAM DATE/TIME: 08/30/2017 01:37 [facility] COMPARISON: No previous studies available for comparison. INDICATIONS : Back pain. RADIATION DOSE: 31.39 CTDIvol (mGy) ; Combined studies - Thoracic Spine/Lumbar Spine MEDICAL HISTORY : Carcinoma, prostate. Hypertension. SURGICAL HISTORY : Coronary artery stent. Prostatectomy. ENCOUNTER: Initial ACUITY: 1 day PAIN SCALE: 8/10 LOCATION: Paraspinal TECHNIQUE: Volumetric scanning of the lumbar spine was performed. Multiplanar reconstructions in the sagittal, coronal and oblique axial planes were performed. Using automated exposure control and adjustment of the mA and/or kV according to patient size, radiation dose was kept as low as reasonably achievable t o obtain optimal diagnostic quality images. DICOM format image data is available electronically for review and comparison. FINDINGS: Chronic L5 pars defect on the left and severe L5/S1 facet osteoarthritis on the right present. There is approximately 3 mm of anterolisthesis of L5 on S1 that appears chronic. Lumbar spine alignment is otherwise normal. No fracture or subluxation. Vertebral bodies have normal height. A 2.4 cm benign he mangioma is seen towards the left of the L1 vertebral body. Mild disc space narrowing and a small, broad/diffuse disc protrusion with moderate bilateral facet os teoarthritis and thickening of the ligamentum flavum seen at L5/S1. There is associated mild spinal a nd bilateral foraminal stenosis. Small, broad/diffuse protrusion at L5/S1. Combined with the previously mentioned anterolisthesis and facet degenerative changes, there is mild right and moderate left foraminal stenosis at this level. N o significant spinal stenosis. CONCLUSION: 1. No acute fracture or acute subluxation of the lumbar spine. 2. 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 3. Mild spinal and bilateral foraminal stenosis at L4/L5. 4. Mild right and moderate left foraminal stenosis at L5/S1. 5. Benign vertebral body hemangioma of L1. No concerning lumbar spine bone lesion. Tim Jones MD on August 30, 2017 at 2:32 Board Certified Radiologist. This report was verified electronically.
[2017-08-30] MEDS: RESP: ALBUTEROL 2.5 MG/IPRATROPIUM 0.5 MG NEB (SCH) INH ×4 (02:44→19:37)
[2017-08-30] MEDS: CHLORHEXIDINE GLUCONATE 2 % 1 PACK (2 CLOTHS) TOP SCH (04:00)
--- NOTE | 2017-08-30 08:38 | RADRPT ---
EXAM DATE/TIME: 08/30/2017 07:52 [facility] COMPARISON: No previous studies available for comparison. INDICATIONS : Syncope. MEDICAL HISTORY : Hypertension. Gastroesophageal reflux disease. Asthma. Prostate cancer. SURGICAL HISTORY : Prostatectomy. Cholecystectomy. Coronary stent. ENCOUNTER: Initial ACUITY: 2 weeks PAIN SCORE: 8/10 LOCATION: Bilateral neck PEAK SYSTOLIC VELOCITIES (cm/sec): ICA/CCA RATIO: Right: 1.3 Left: 0.9 ICA: Right: 140 Left: 144 CCA: Right: 109 Left: 165 ECA: Right: 169 Left: 156 VERTEBRAL: Right: 87 antegrade Left: 64 antegrade Elevated flow velocities and ICA/CCA ratios have been found to correlate with increased degrees of vessel stenosis, calculated as percentage of diameter relative to a normal segment of distal ICA/CCA FINDINGS: RIGHT CAROTID: Moderate diffuse calcified plaque in the common carotid, bulb and proximal ICA. Resultant moderate, 5 0-69%, stenosis. LEFT CAROTID: Moderate diffuse calcified plaque in the common carotid, bulb and proximal ICA. Resultant moderate, 5 0-69%, stenosis of the internal carotid and likely moderate stenosis of the common carotid artery. VERTEBRAL ARTERIES: Antegrade flow is seen in both vertebral arteries. MISCELLANEOUS: None. CONCLUSION: 1. Diffuse calcified plaque throughout carotid arteries bilaterally with resultant moderate, 50-69%, stenosis of the internal carotid arteries bilaterally and likely moderate stenosis of the left common carotid artery. 2. Antegrade vertebral artery flow bilaterally. Lopez Taylor MD on August 30, 2017 at 8:22 Board Certified Radiologist. This report was verified electronically.
[2017-08-30] MEDS: SODIUM CHLORIDE 0.9% FLUSH 10 ML FLUSH IV FLUSH SCH ×2 (09:00→19:29)
--- NOTE | 2017-08-30 09:05 | HHI.CCPN ---
Subjective Remarks/Hospital Course This is a 72-year-old male that presented to [facility] emergency room with complaints of increasing dizziness since the beginning of this month. Approximately 2 weeks ago he reported to an urgent care center and was diagnosed with benign paroxysmal vertigo and given meclizine Medrol Ebenezer and Ultram. His symptoms progressively worsened and he reported to the emergency room today, after almost falling this morning. The patient discontinued taking meloxicam shortly after the prescription was initiated, stating that it was not helping. He has noted some dark stools. He has noted that he has been bruising easily recently. Patient also complains of acute back pain that started approximately 1 week ago. Laboratory and imaging studies were performed in the ED and the patient was noted to have severe thrombocytopenia with a platelet count of 5 , anemia with a hemoglobin 7.8 . Hematology was consulted and the patient LDH and haptoglobin laboratory studies are pending . CT brain revealed small focal density region possible in the anterior falx concerning for hemorrhage . The patient's medical history is significant for an NC in 2003 at which point he had 2 stents placed. The patient reports he was put on Plavix for several weeks then discontinued, but continues to aspirin. Patient's pertinent medical history also includes hypertension well controlled with Norvasc, Muñoz's esophagus he has had follow-up endoscopies evaluated every 2 years last procedure performed approximately 1 year ago which stated no change and he continues on Nexium. He has a history of prostate cancer and has had the prostate removed and had 38 radiation treatments in 2003. Critical care medicine was consulted. Upon my evaluation the patient was hemodynamically stable BP 104/55, heart rate 91. The patient is planned for stat transfer to [facility], and is pending transfusions of 2 PRBC, 1 of PLTs. Hematology and gastroenterology have been consulted. I have discussed the patient with Dr. Hong. Subjective: 08/30: T-max 99 3. The patient continued to run low-grade fevers through the night. Patient noted to have bands 18%. Will obtain lactic acid, blood cultures pending. The patient received 2 units packed red blood cells and platelets. Repeat CBC with differential pending. MRI pending this a.m.. Small subdural noted on repeat CT brain,neurosurgery consulted. Will repeat CT brain in am. Objective Vital Signs Date Time Temp Pulse Resp B/P (MAP) Pulse Ox O2 Delivery O2 Flow Rate FiO2 08/30/17 06:00 89 08/30/17 06:00 26 119/61 (80) 92 08/30/17 04:00 98.9 08/29/17 17:00 Room Air 08/29/17 16:00 21 Intake and Output 08/30/17 08/30/17 08/31/17 08:00 16:00 00:00 Intake Total 651 ml Output Total 1700 ml Balance -1049 ml Result Diagram: 08/29/17204808/29/172048 Imaging Last Impressions Thoracic Spine CT 08/30/17 0100 Signed Impressions: Service Date/Time: August 01:37 - CONCLUSION: 1. No fracture, subluxation or other acute abnormality of the thoracic spine. 2. Scoliosis and mild multifocal degenerative changes as above. 3. Complex appearing cystic structures of the upper poles of both kidneys. Comparison to any previous outside facility studies is recommended to confirm chronicity and stability. Contrast enhanced study of the abdomen suggested if felt clinically indicated, preferably MRI if there are no contraindications. Tim Jones MD Lumbar Spine CT 08/30/17 0100 Signed Impressions: Service Date/Time: August 01:37 - CONCLUSION: 1. No acute fracture or acute subluxation of the lumbar spine. 2. 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 3. Mild spinal and bilateral foraminal stenosis at L4/L5. 4. Mild right and moderate left foraminal stenosis at L5/S1. 5. Benign vertebral body hemangioma of L1. No concerning lumbar spine bone lesion. Tim Jones MD Head CT 08/30/17 0100 Signed Impressions: Service Date/Time: August 01:37 - CONCLUSION: Small frontal maddy-falcine subdural blood is unchanged. Tim Jones MD Last Impressions Head CT 08/29/17 1254 Signed Impressions: Service Date/Time: Tuesday, August 29, 2017 13:22 - CONCLUSION: 1. Small focal region of increased density in the anterior falx concerning for hemorrhage. Differential considerations include dystrophic calcification. Recommend close interval followup CT examination. Lopez Taylor MD Objective Remarks GENERAL: Well-developed well-nourished male in no distress SKIN: Warm and dry. HEAD: Atraumatic. Normocephalic. EYES: Pupils equal and round. Pupils 2 mm and brisk. No scleral icterus. No injection or drainage. ENT: No nasal bleeding or discharge. Mucous membranes pink and moist. NECK: Trachea midline. No JVD. CARDIOVASCULAR: Normal rate, regular rhythm. RESPIRATORY: No accessory muscle use. Clear to auscultation. Breath sounds equal bilaterally. GASTROINTESTINAL: Abdomen soft, non-tender, obese nondistended. No guarding. Bowel sounds active. MUSCULOSKELETAL: Extremities without clubbing, cyanosis, or edema. No obvious deformities. NEUROLOGICAL: GCS 15. awake and alert. RASS 0. No gross focal/sensory deficits. Follows commands in all 4 extremities. A/P Problem List: (1) Anemia ICD Code: D64.9 - Anemia, unspecified Status: Acute (2) Thrombocytopenia ICD Code: D69.6 - Thrombocytopenia, unspecified Status: Acute (3) GI bleed ICD Code: K92.2 - Gastrointestinal hemorrhage, unspecified Status: Acute (4) Prostate cancer ICD Code: C61 - Malignant neoplasm of prostate Status: Resolved (5) Hypertension ICD Code: I10 - Essential (primary) hypertension Status: Chronic (6) Asthma ICD Code: J45.909 - Unspecified asthma, uncomplicated Status: Chronic (7) History of NC (myocardial infarction) ICD Code: I25.2 - Old myocardial infarction (8) Back pain ICD Code: M54.9 - Dorsalgia, unspecified Status: Acute (9) BMI 30.0-30.9,adult ICD Code: Z68.30 - Body mass index (BMI) 30.0-30.9, adult Status: Chronic Assessment and Plan Plan by systems: Neurologic: Subdural bleed 1 cm Back pain 08/29-CT brain small focal region increased density in anterior falx concerning for hemorrhage 08/30-repeat CT brain-Small 1 cm frontal maddy-falcine subdural blood is unchanged Repeat CT brain in am MRI pending this am Consult neurosurgery 08/29 CT thoracic- No fracture, subluxation or other acute abnormality of the thoracic spine. Scoliosis and mild multifocal degenerative changes. 08/29 CT lumbar- No acute fracture or acute subluxation of the lumbar spine. 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 Mild spinal and bilateral foraminal stenosis at L4/L5. Mild right and moderate left foraminal stenosis at L5/S1. Benign vertebral body hemangioma of L1. No concerning lumbar spine bone lesions. Neuro checks per ICU protocol Avoid sedative type medications Strict bedrest Obtain carotid Doppler studies Has allergy to acetaminophen, consider small doses of fentanyl if needed for pain scale 7-10 Respiratory: Asthma Duo nebs every 6 hours scheduled and every 2 hours as needed Continue Advair daily, patient's home med and Ventolin as needed Patient's last asthma attack approximately 6 months ago Provide O2 1-4 L/min if needed to maintain O2 saturation greater than 92% Incentive spirometry while awake Cardiovascular: History of NC- S/P stent placement 2 (2003) Coronary artery disease Hypertension maintain mean arterial pressure greater than 65 Continue Norvasc patient's home medication and Ramipril Patient normally takes aspirin daily will hold for now Obtain baseline EKG Telemetry showing sinus rhythm Labetalol 10 mg every 6 hours for systolic blood pressure greater than 160 Renal: History of prostate cancer status post XRT No [place] indicated at this time -- Strict I/Os FEN/GI: Muñoz's esophagus GI bleed Obtain BMP follow-up result Electrolyte replacements per ICU protocol Maintain n.p.o. status for now IVF NS 84cc/hr Zofran for nausea Protonix GI prophylaxis GI consulted discussed w/ Dr. Hong Heme/ID: Anemia Thrombocytopenia Heme-Onc- following LDH- 782 F/U haptoglobin level Transfused 2 units of packed red blood cells, and one 6 pack of platelets repeat labs 1 hour posttransfusion Endocrine: Glucose monitoring per ICU protocol -- SSI Prophylaxis: GI Prophylaxis Famotidine DVT Prophylaxis -- SCDs No chemical DVT prophylaxis in the setting of thrombocytopenia Lines: Peripheral IVs 2 providing adequate access. Central line if indicated Dispo: Level [facility]. [facility] Contact[facility] Heme Onc to provide update on radiological findings. Physician Trudy Marcus Problem Qualifiers (1) Anemia: Qualified Codes: D64.9 - Anemia, unspecified (2) Back pain: Qualified Codes: M54.9 - Dorsalgia, unspecified Trudy Marcus MD Aug 30, 2017 09:05
[2017-08-30 09:11] LABS: ALBUMIN 3.1 GM/DL (3.4-5.0); AST (GOT) 31 U/L (15-37); BICARBONATE 20.7 MEQ/L (21.0-32.0); BLOOD UREA NITROGEN 41 MG/DL (7-18); CALCIUM 9.6 MG/DL (8.5-10.1); CHLORIDE 107 MEQ/L (98-107); CREATININE 1.39 MG/DL (0.60-1.30); GLOMERULAR FILTRATION RATE 50 ML/MIN (>89); GLUCOSE,RANDOM 108 MG/DL (74-106); SODIUM (NA) 142 MEQ/L (136-145)
[2017-08-30 09:11] LABS: HEMATOCRIT 24.2 % (39.0-51.0); HEMOGLOBIN 8.7 GM/DL (13.0-17.0); MEAN CELL VOLUME 90.7 FL (80.0-100.0); MEAN CORPUSCULAR HEMOGLOBIN 32.7 PG (27.0-34.0); MEAN PLATELET VOLUME 6.8 FL (7.0-11.0); PLATELET COUNT 37 TH/MM3 (150-450); RED BLOOD COUNT 2.66 MIL/MM3 (4.50-5.90); RED CELL DISTRIBUTION WIDTH 13.5 % (11.6-17.2); WHITE BLOOD COUNT 7.4 TH/MM3 (4.0-11.0)
[2017-08-30 09:12] LABS: ALT (GPT) 28 U/L (12-78)
[2017-08-30 09:14] LABS: ALKALINE PHOSPHATASE 83 U/L (45-117); TOTAL BILIRUBIN ADULT 0.7 MG/DL (0.2-1.0)
[2017-08-30 09:16] LABS: MEAN CORPUSCULAR HGB CONC 36.1 % (32.0-36.0)
[2017-08-30 09:23] LABS: INTERNATIONAL NORMALIZED RATIO 1.1 RATIO; PROTHROMBIN TIME - PATIENT 11.3 SEC (9.8-11.6)
[2017-08-30] MEDS ORDERED: GADODIAMIDE PF 287 MG/ML 20 ML VIAL (for RAD MRI) IVCONTRAST ONE (09:45)
[2017-08-30 09:47] LABS: ALBUMIN 3.2 GM/DL (3.4-5.0); AST (GOT) 31 U/L (15-37); BICARBONATE 23.1 MEQ/L (21.0-32.0); BLOOD UREA NITROGEN 22 MG/DL (7-18); CALCIUM 9.5 MG/DL (8.5-10.1); CHLORIDE 107 MEQ/L (98-107); CREATININE 0.96 MG/DL (0.60-1.30); GLOMERULAR FILTRATION RATE 77 ML/MIN (>89); GLUCOSE,RANDOM 85 MG/DL (74-106); SODIUM (NA) 144 MEQ/L (136-145)
[2017-08-30 09:50] LABS: ALKALINE PHOSPHATASE 89 U/L (45-117); ALT (GPT) 27 U/L (12-78); TOTAL BILIRUBIN ADULT 1.4 MG/DL (0.2-1.0); TOTAL PROTEIN 6.3 GM/DL (6.4-8.2)
[2017-08-30 10:08] LABS: BANDS 25 % (0-6); BASOPHILS 2 % (0-2); BLASTS 7 % (0-0); CORRECTED NUCLEATED RBC 14 /100 WBC (0-0); LYMPHOCYTES 26 % (9-44); METAMYELOCYTES 2 % (0-1); MONOCYTES 6 % (0-8); MYELOCYTES 7 % (0-0); NEUTROPHIL # MANUAL DIFF 4.4 TH/MM3 (1.8-7.7); NUCLEATED RED BLOOD CELL 14 (0-0); POLYS (SEG NEUTROPHILS) 25 % (16-70)
[2017-08-30] MEDS: PANTOPRAZOLE SODIUM 40 MG VIAL IV PUSH SCH (10:19)
[2017-08-30] MEDS: DOCUSATE SODIUM 50 MG/SENNA 8.6 MG TAB PO SCH ×2 (10:19→19:29)
[2017-08-30] MEDS: ALBUTEROL SULFATE 90 MCG/ACT HFA 8 GM INHALER INH PRN (10:20)
[2017-08-30] MEDS: BUDESONIDE-FORMOTEROL 160/4.5 MCG INHALER INH SCH ×2 (10:20→19:30)
[2017-08-30] MEDS: SODIUM CHLOR 0.9% 1000 ML INJ 1,000 ML IV SCH ×2 (10:21→22:51)
--- NOTE | 2017-08-30 10:29 | RADRPT ---
EXAM DATE/TIME: 08/30/2017 09:27 [facility] COMPARISON: CT BRAIN W/O CONTRAST, August 30, 2017, 1:37. INDICATIONS : Dizziness. Abnormal CT. CONTRAST: 19 cc Omniscan (gadodiamide) IV MEDICAL HISTORY : Carcinoma, prostate. Hypertension. Myocardial infarction. GERD SURGICAL HISTORY : Cholecystectomy. Prostatectomy. CABG catarct, heart stent X2 ENCOUNTER: Subsequent ACUITY: 2 day PAIN SCORE: 3/10 LOCATION: Right shoulder TECHNIQUE: Multiplanar, multisequence MRI of the brain was performed both prior to and following the administrat ion of paramagnetic contrast. FINDINGS: CEREBRUM: Small focal region of increased density in the right parafalcine region noted on CT exam this corresp onds to a uniformly enhancing dural based extra-axial mass with apparent dural tail consistent with a small meningioma. No evidence of blood products on gradient echo sequences. The ventricles are margi l for age. No evidence of midline shift, mass lesion, hemorrhage or acute infarction. No extraaxial fluid collections are seen. The pituitary gland and suprasellar cistern are normal in configuration . WHITE MATTER: No significant signal abnormalities are seen in the white matter. POSTERIOR FOSSA: The cerebellum and brainstem are intact. The 4th ventricle is midline. The cerebellopontine angle is unremarkable. The cerebellar tonsils are normal in position. DIFFUSION IMAGING: No focal areas of restricted diffusion are seen. No evidence of acute infarction. EXTRACRANIAL: The visualized portions of the orbits and paranasal sinuses are unremarkable. POST-CONTRAST: No additional abnormal areas of parenchymal or dural enhancement. No evidence of blood-brain barrier breakdown. CONCLUSION: 1. Right frontal parafalcine abnormality on CT exam corresponds to a small meningioma. No definitive intra-or extra-axial hemorrhage. Lopez Taylor MD on August 30, 2017 at 10:03 Board Certified Radiologist. This report was verified electronically.
[2017-08-30 12:23] LABS: ALBUMIN 3.1 GM/DL (3.4-5.0); AST (GOT) 33 U/L (15-37); BICARBONATE 21.9 MEQ/L (21.0-32.0); BLOOD UREA NITROGEN 22 MG/DL (7-18); CALCIUM 8.9 MG/DL (8.5-10.1); CHLORIDE 106 MEQ/L (98-107); CREATININE 0.92 MG/DL (0.60-1.30); GLOMERULAR FILTRATION RATE 81 ML/MIN (>89); GLUCOSE,RANDOM 85 MG/DL (74-106); SODIUM (NA) 143 MEQ/L (136-145)
[2017-08-30 12:28] LABS: ALKALINE PHOSPHATASE 86 U/L (45-117); ALT (GPT) 28 U/L (12-78); TOTAL BILIRUBIN ADULT 1.7 MG/DL (0.2-1.0); TOTAL PROTEIN 6.2 GM/DL (6.4-8.2)
--- NOTE | 2017-08-30 12:44 | PD.CONS ---
HPI History of Present Illness This is a 72 year old male who was admitted on 08/29/2017 with increased dizziness and falling according to the record. Patient and are here for the month of August visiting from [place] and plan is to go back home at the end of the month. Patient has a history of Muñoz's esophagus and colon polyps and has GI follow-up in [place]. Last EGD and colonoscopy were approximately 2 years ago. When initially evaluated in the emergency room hemoglobin was 7.8 and platelet count was 5. Hematology has been following and plans to do a bone marrow biopsy this afternoon. Currently patient remains n.p.o. with IV hydration. Patient does note symptoms of acute vomiting after eating at [employer] with his day of admission. He states to me that he only had one episode of vomiting and states she had diarrhea and GI symptoms. Their initial thought was food poisoning but patient has continued to have right subscapular pain in his back for the past 2 days and states this is still his chief complaint. Patient denies any acute further nausea or vomiting or heartburn and states those symptoms are controlled as long as he takes his daily Nexium . Upper symptoms are controlled with his meds. Patient denies any diarrhea or constipation. Patient states last BM was yesterday a.m. which was brown and formed. He has taken some Pepto-Bismol within the past few days and had dark stool, but states no obvious bleeding. During my exam it was noted that patient had some mild bloating but denied any abdominal pain or tenderness. Since admission patient has had transfusions and current hemoglobin is 8.7. (Guadalupe Ma) PFSH Past Medical History Muñoz's esophagus Colon polyps GERD hypertension Past Surgical History Colonoscopy and endoscopy approximately 2 years ago prostate cancer Coronary artery stents Cholecystectomy (Guadalupe Ma) Coded Allergies: Penicillins (Verified Allergy, Severe, Itching, 08/29/17) Quinolones (Verified Allergy, Severe, Swelling, 08/29/17) acetaminophen (Verified Allergy, Severe, Hives, 08/29/17) hydrocodone (Verified Allergy, Severe, Itching, 08/29/17) meperidine (Verified Allergy, Unknown, 08/29/17) Medications Administered Medications Medications (Trade) Dose Ordered Sig/Robert Route PRN Reason Start Time Stop Time Status Last Admin Dose Admin Sodium Chloride 1,000 ml @ 84 mls/hr [id number] IV 08/29/17 16:00 08/30/17 10:21 Sodium Chloride (NS Flush) 2 ml BID IV FLUSH 08/29/17 21:00 08/30/17 09:00 Pantoprazole Sodium (Protonix Inj) 40 mg DAILY IV PUSH 08/30/17 09:00 08/30/17 10:19 Albuterol/ Ipratropium (Duoneb Neb) 1 ampule Q6HR NEB INH 08/29/17 16:00 08/30/17 02:44 Chlorhexidine Gluconate (Chlorhexidine 2% Cloth) 3 pack Taper DAILY@04 TOP 08/30/17 04:00 08/26/18 03:59 08/30/17 04:00 Senna/Docusate Sodium (Madina-Colace) 1 tab BID PO 08/29/17 21:00 08/30/17 10:19 Fentanyl Citrate (fentaNYL INJ) 50 mcg Q3H PRN IV PUSH PAIN SCALE 7 TO 10 08/29/17 20:30 08/30/17 04:41 Albuterol Sulfate (Proair Hfa Inh) 2 puff Q6H PRN INH SHORTNESS OF BREATH 08/29/17 18:00 08/30/17 10:20 Amlodipine Besylate (Norvasc) 10 mg DAILY PO 08/30/17 09:00 08/30/17 10:20 Budesonide/ Formoterol Fumarate (Symbicort 160-4.5 Mcg Inh) 2 puff BID INH 08/29/17 21:00 08/30/17 10:20 Social History Non-smoker Rare occasional social alcohol is present No illicit drug (Guadalupe Ma) Review of Systems Constitutional: COMPLAINS OF: Dizziness Gastrointestinal: COMPLAINS OF: Nausea, Vomiting (1) Right-sided subscapular pain (Guadalupe Ma) GI Exam Vitals I&O Vital Signs Date Time Temp Pulse Resp B/P (MAP) Pulse Ox O2 Delivery O2 Flow Rate FiO2 08/30/17 11:00 92 26 93 08/30/17 11:00 92 08/30/17 09:01 93 42 152/70 (97) 93 08/30/17 09:01 93 4/19/18 09:00 98 46 92 4/19/18 09:00 98 4/19/18 08:00 85 4/19/18 08:00 98.6 85 26 133/64 (87) 91 4/19/18 07:00 86 28 119/66 (83) 93 4/19/18 06:00 89 4/19/18 06:00 86 26 119/61 (80) 92 4/19/18 05:00 87 28 129/61 (83) 90 4/19/18 04:00 92 4/19/18 04:00 98.9 92 28 126/61 (82) 92 4/19/18 03:00 90 31 126/69 (88) 92 419/18 02:00 90 4/18 02:00 87 28 123/61 (81) 92 4/18 01:00 86 28 123/61 (81) 91 419/18 00:00 85 4/19/18 00:00 98.8 83 28 121/61 (81) 92 4/18/18 23:48 99.0 84 23 117/62 94 4/18/18 23:00 88 25 117/62 (80) 93 4/18/18 22:00 91 4/18/18 22:00 87 4/18/18 21:00 89 29 92 4/18/18 20:00 99.0 92 29 92 4/18/18 20:00 86 4/18/18 20:00 92 4/18/18 19:26 97 4/18/18 19:10 98.8 85 26 114/56 93 4/18/18 19:00 86 29 114/56 (75) 95 4/18/18 18:25 98.8 4/18/18 18:11 99.3 87 30 114/56 94 4/18/18 18:07 99.3 87 24 114/56 93 4/18/18 18:00 86 4/18/18 18:00 99.1 87 24 114/56 (75) 96 4/18/18 17:21 4/18/18 17:00 88 20 109/59 (76) 97 Room Air 4/18/18 16:00 94 21 4/18/18 15:23 88 20 104/55 (71) 95 Room Air 4/18/18 13:51 84 20 110/62 (78) 97 Room Air 08/29/17 12:27 88 20 103/59 (74) 96 Room Air I/O 08/29/17 08/29/17 08/29/17 08/30/17 08/30/17 08/30/17 07:00 15:00 23:00 07:00 15:00 23:00 Intake Total 1097 ml 1091 ml 1000 ml Output Total 300 ml 400 ml 1700 ml Balance -300 ml 697 ml -609 ml 1000 ml Intake IV Total 500 ml 1000 ml Packed Cells 800 ml FFP 211 ml Platelets 537 ml Blood Product IV Normal Saline Flush 60 ml 80 ml Output Urine Total 300 ml 400 ml 1700 ml # Voids 1 # Bowel Movements 0 Imaging Last Impressions Thoracic Spine CT 08/30/1799 Signed Impressions: Service Date/Time: August 01:37 - CONCLUSION: 1. No fracture, subluxation or other acute abnormality of the thoracic spine. 2. Scoliosis and mild multifocal degenerative changes as above. 3. Complex appearing cystic structures of the upper poles of both kidneys. Comparison to any previous outside facility studies is recommended to confirm chronicity and stability. Contrast enhanced study of the abdomen suggested if felt clinically indicated, preferably MRI if there are no contraindications. Tim Jones MD Lumbar Spine CT 08/30/1799 Signed Impressions: Service Date/Time: August 01:37 - CONCLUSION: 1. No acute fracture or acute subluxation of the lumbar spine. 2. 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 3. Mild spinal and bilateral foraminal stenosis at L4/L5. 4. Mild right and moderate left foraminal stenosis at L5/S1. 5. Benign vertebral body hemangioma of L1. No concerning lumbar spine bone lesion. Tim Jones MD Head CT 08/30/1799 Signed Impressions: Service Date/Time: August 01:37 - CONCLUSION: Small frontal madina-falcine subdural blood is unchanged. Tim Jones MD Carotid Artery Ultrasound 08/30/17 0000 Signed Impressions: Service Date/Time: August 07:52 - CONCLUSION: 1. Diffuse calcified plaque throughout carotid arteries bilaterally with resultant moderate, 50-69%%, stenosis of the internal carotid arteries bilaterally and likely moderate stenosis of the left common carotid artery. 2. Antegrade vertebral artery flow bilaterally. Lopez Taylor MD Brain MRI 08/30/17 0000 Signed Impressions: Service Date/Time: August 09:27 - CONCLUSION: 1. Right frontal parafalcine abnormality on CT exam corresponds to a small meningioma. No definitive intra-or extra-axial hemorrhage. Lopez Taylor MD Laboratory Test 08/29/17 18:00 08/29/17 20:49 08/30/17 08:23 08/30/17 08:45 Nasal Screen MRSA (PCR) MRSA NOT DETECTED White Blood Count 6.8 TH/MM3 7.4 TH/MM3 Red Blood Count 2.13 MIL/MM3 2.66 MIL/MM3 Hemoglobin 7.0 GM/DL 8.7 GM/DL Hematocrit 19.7 % 24.2 % Mean Corpuscular Volume 92.1 FL 90.7 FL Mean Corpuscular Hemoglobin 32.8 PG 32.7 PG Mean Corpuscular Hemoglobin Concent 35.6 % 36.1 % Red Cell Distribution Width 13.4 % 13.5 % Platelet Count 47 TH/MM3 37 TH/MM3 Mean Platelet Volume 7.0 FL 6.8 FL Neutrophils (%) (Auto) 28.0 % Lymphocytes (%) (Auto) 35.1 % Monocytes (%) (Auto) 33.7 % Eosinophils (%) (Auto) 1.9 % Basophils (%) (Auto) 1.3 % Neutrophils # (Auto) 1.9 TH/MM3 Lymphocytes # (Auto) 2.4 TH/MM3 Monocytes # (Auto) 2.3 TH/MM3 Eosinophils # (Auto) 0.1 TH/MM3 Basophils # (Auto) 0.1 TH/MM3 CBC Comment AUTO DIFF AUTO DIFF Differential Total Cells Counted 100 100 Neutrophils % (Manual) 26 % 25 % Band Neutrophils % 18 % 25 % Lymphocytes % 31 % 26 % Monocytes % 4 % 6 % Basophils % 2 % 2 % Neutrophils # (Manual) 3.1 TH/MM3 4.4 TH/MM3 Metamyelocytes 1 % 2 % Nucleated Red Blood Cells 6 /100 WBC 14 /100 WBC Differential Comment FINAL DIFF MANUAL FINAL DIFF MANUAL Blastocytes 18 % 7 % Platelet Estimate RARE LOW Platelet Morphology Comment NORMAL NORMAL Blood Smear Pathologist Review Reticulocyte Count 0.7 % Absolute Reticulocyte Count 15.0 MIL/L Blood Urea Nitrogen 31 MG/DL 22 MG/DL Creatinine 1.03 MG/DL 0.96 MG/DL Random Glucose 82 MG/DL 85 MG/DL Total Protein 5.8 GM/DL 6.3 GM/DL Albumin 2.9 GM/DL 3.2 GM/DL Calcium Level 9.0 MG/DL 9.5 MG/DL Phosphorus Level 3.6 MG/DL Alkaline Phosphatase 78 U/L 89 U/L Aspartate Amino Transf (AST/SGOT) 31 U/L 31 U/L Alanine Aminotransferase (ALT/SGPT) 28 U/L 27 U/L Total Bilirubin 1.1 MG/DL 1.4 MG/DL Direct Bilirubin 0.3 MG/DL Sodium Level 144 MEQ/L 144 MEQ/L Potassium Level 4.4 MEQ/L 4.1 MEQ/L Chloride Level 108 MEQ/L 107 MEQ/L Carbon Dioxide Level 23.2 MEQ/L 23.1 MEQ/L Anion Gap 13 MEQ/L 14 MEQ/L Estimat Glomerular Filtration Rate 71 ML/MIN 77 ML/MIN Indirect Bilirubin 0.8 MG/DL Prothrombin Time 11.3 SEC Prothromb Time International Ratio 1.1 RATIO Myelocytes 7 % Basophilic Stippling MOD Lactate Dehydrogenase 936 U/L Test 08/30/17 11:34 Blood Urea Nitrogen 22 MG/DL Creatinine 0.92 MG/DL Random Glucose 85 MG/DL Albumin 3.1 GM/DL Calcium Level 8.9 MG/DL Aspartate Amino Transf (AST/SGOT) 33 U/L Sodium Level 143 MEQ/L Potassium Level 4.0 MEQ/L Chloride Level 106 MEQ/L Carbon Dioxide Level 21.9 MEQ/L Anion Gap 15 MEQ/L Estimat Glomerular Filtration Rate 81 ML/MIN Date/Time Source Procedure Growth Status 08/30/17 11:40 Blood Peripheral Aerobic Blood Culture Pending Received 08/30/17 11:40 Blood Peripheral Anaerobic Blood Culture Pending Received Physical Examination HEENT: Pupils round and reactive to light; normocephalic; atraumatic; no jaundice. Throat and speech is clear. NECK: Neck is supple CHEST: Chest is clear to auscultation and percussion no obvious rhonchi or wheezing CARDIAC: Regular rate and rhythm ABDOMEN: Soft, mild tympanic bloating, nontender; no obvious hepatosplenomegaly ; bowel sounds are present in all four quadrants. EXTREMITIES: No clubbing, cyanosis, or edema., Right subscapular, posterior rib pain SKIN: Pale, normal; no rash; no jaundice. TRANSITION OF CARE SPECIALIST: No focal deficits; alert and oriented times three. (Guadalupe Ma) Assessment and Plan Plan History of Muñoz's esophagus with last EGD done approximately 2 years ago in [place] with his GI doctor. States that he will be due for endoscopy when he gets home. We did discuss the possibility of doing further testing during this admission if needed. Takes Nexium at home, currently on PPI here in the hospital no further nausea vomiting, no symptoms of heartburn History of colon polyps, last colonoscopy approximately 2 years ago when he had his EGD. Denies any diarrhea or constipation. Did have one dark stool but had taken some Pepto-Bismol for upset stomach. Thrombocytopenia being treated per hematology. Patient is going for bone marrow biopsy today. Current platelet count 37. Hemoglobin now 8.7. PT/INR 1.1 Patient continues to require intensive care therapy Plan PPI Anti-emetics Pain management per attending Consider endoscopy, but currently low platelet count at 37. Was 5 on admission\ Further recommendations will be based on patient's symptoms and findings GI will follow Supportive care This patient was seen per myself and Dr. Hong, this note was written on her behalf (Guadalupe Ma) Physician Comments see, examined agree with above not much to add form gi point egd/colonoscopy once plt improved unless active bleeding (Melba Hnog MD) Guadalupe Ma Aug 30, 2017 12:44 Melba Hong MD Aug 30, 2017 16:42
--- NOTE | 2017-08-30 12:52 | PD.ONC.PN ---
Subjective Subjective Remarks Afebrile overnight. Patient resting in bed in nad. at bedside. denies pain. has not noticed any blood in stool. just had bowel movement prior to my entering room. Objective Data Date Time Temp Pulse Resp B/P (MAP) Pulse Ox O2 Delivery O2 Flow Rate FiO2 08/30/17 11:00 92 26 93 08/30/17 11:00 92 08/30/17 09:01 93 42 152/70 (97) 93 08/30/17 09:01 93 08/30/17 09:00 98 46 92 08/30/17 09:00 98 08/30/17 08:00 85 08/30/17 08:00 98.6 85 26 133/64 (87) 91 08/30/17 07:00 86 28 119/66 (83) 93 08/30/17 06:00 89 08/30/17 06:00 86 26 119/61 (80) 92 08/30/17 05:00 87 28 129/61 (83) 90 08/30/17 04:00 92 08/30/17 04:00 98.9 92 28 126/61 (82) 92 08/30/17 03:00 90 31 126/69 (88) 92 08/30/17 02:00 90 08/30/17 02:00 87 28 123/61 (81) 92 08/30/17 01:00 86 28 123/61 (81) 91 08/30/17 00:00 85 08/30/17 00:00 98.8 83 28 121/61 (81) 92 08/29/17 23:48 99.0 84 23 117/62 94 08/29/17 23:00 88 25 117/62 (80) 93 18 22:00 91 08/29/17 22:00 87 08/29/17 21:00 89 29 92 08/29/17 20:00 99.0 92 29 92 08/29/17 20:00 86 08/29/17 20:00 92 08/29/17 19:26 97 08/29/17 19:10 98.8 85 26 114/56 93 08/29/17 19:00 86 29 114/56 (75) 95 08/29/17 18:25 98.8 18 18:11 99.3 87 30 114/56 94 08/29/17 18:07 99.3 87 24 114/56 93 08/29/17 18:00 86 08/29/17 18:00 99.1 87 24 114/56 (75) 96 08/29/17 17:21 08/29/17 17:00 88 20 109/59 (76) 97 Room Air 08/29/17 16:00 94 21 08/29/17 15:23 88 20 104/55 (71) 95 Room Air 08/29/17 13:51 84 20 110/62 (78) 97 Room Air 08/30/17 08/30/17 08/30/17 07:00 15:00 23:00 Intake Total 1091 ml 1000 ml Output Total 1700 ml Balance -609 ml 1000 ml Result Diagram: 08/30/17 0845 08/30/17 1134 Laboratory Results Laboratory Tests Test 08/29/17 18:00 08/29/17 20:49 08/30/17 08:23 08/30/17 08:45 Nasal Screen MRSA (PCR) MRSA NOT DETECTED White Blood Count 6.8 TH/MM3 7.4 TH/MM3 Red Blood Count 2.13 MIL/MM3 2.66 MIL/MM3 Hemoglobin 7.0 GM/DL 8.7 GM/DL Hematocrit 19.7 % 24.2 % Mean Corpuscular Volume 92.1 FL 90.7 FL Mean Corpuscular Hemoglobin 32.8 PG 32.7 PG Mean Corpuscular Hemoglobin Concent 35.6 % 36.1 % Red Cell Distribution Width 13.4 % 13.5 % Platelet Count 47 TH/MM3 37 TH/MM3 Mean Platelet Volume 7.0 FL 6.8 FL Neutrophils (%) (Auto) 28.0 % Lymphocytes (%) (Auto) 35.1 % Monocytes (%) (Auto) 33.7 % Eosinophils (%) (Auto) 1.9 % Basophils (%) (Auto) 1.3 % Neutrophils # (Auto) 1.9 TH/MM3 Lymphocytes # (Auto) 2.4 TH/MM3 Monocytes # (Auto) 2.3 TH/MM3 Eosinophils # (Auto) 0.1 TH/MM3 Basophils # (Auto) 0.1 TH/MM3 CBC Comment AUTO DIFF AUTO DIFF Differential Total Cells Counted 100 100 Neutrophils % (Manual) 26 % 25 % Band Neutrophils % 18 % 25 % Lymphocytes % 31 % 26 % Monocytes % 4 % 6 % Basophils % 2 % 2 % Neutrophils # (Manual) 3.1 TH/MM3 4.4 TH/MM3 Metamyelocytes 1 % 2 % Nucleated Red Blood Cells 6 /100 WBC 14 /100 WBC Differential Comment FINAL DIFF MANUAL FINAL DIFF MANUAL Blastocytes 18 % 7 % Platelet Estimate RARE LOW Platelet Morphology Comment NORMAL NORMAL Blood Smear Pathologist Review Reticulocyte Count 0.7 % Absolute Reticulocyte Count 15.0 MIL/L Blood Urea Nitrogen 31 MG/DL 22 MG/DL Creatinine 1.03 MG/DL 0.96 MG/DL Random Glucose 82 MG/DL 85 MG/DL Total Protein 5.8 GM/DL 6.3 GM/DL Albumin 2.9 GM/DL 3.2 GM/DL Calcium Level 9.0 MG/DL 9.5 MG/DL Phosphorus Level 3.6 MG/DL Alkaline Phosphatase 78 U/L 89 U/L Aspartate Amino Transf (AST/SGOT) 31 U/L 31 U/L Alanine Aminotransferase (ALT/SGPT) 28 U/L 27 U/L Total Bilirubin 1.1 MG/DL 1.4 MG/DL Direct Bilirubin 0.3 MG/DL Sodium Level 144 MEQ/L 144 MEQ/L Potassium Level 4.4 MEQ/L 4.1 MEQ/L Chloride Level 108 MEQ/L 107 MEQ/L Carbon Dioxide Level 23.2 MEQ/L 23.1 MEQ/L Anion Gap 13 MEQ/L 14 MEQ/L Estimat Glomerular Filtration Rate 71 ML/MIN 77 ML/MIN Indirect Bilirubin 0.8 MG/DL Prothrombin Time 11.3 SEC Prothromb Time International Ratio 1.1 RATIO Myelocytes 7 % Basophilic Stippling MOD Lactate Dehydrogenase 936 U/L Test 08/30/17 11:34 Blood Urea Nitrogen 22 MG/DL Creatinine 0.92 MG/DL Random Glucose 85 MG/DL Total Protein 6.2 GM/DL Albumin 3.1 GM/DL Calcium Level 8.9 MG/DL Alkaline Phosphatase 86 U/L Aspartate Amino Transf (AST/SGOT) 33 U/L Alanine Aminotransferase (ALT/SGPT) 28 U/L Total Bilirubin 1.7 MG/DL Sodium Level 143 MEQ/L Potassium Level 4.0 MEQ/L Chloride Level 106 MEQ/L Carbon Dioxide Level 21.9 MEQ/L Anion Gap 15 MEQ/L Estimat Glomerular Filtration Rate 81 ML/MIN Lactic Acid Level 5.3 mmol/L Culture Results Microbiology Date/Time Source Procedure Growth Status 08/30/17 11:40 Blood Peripheral Aerobic Blood Culture Pending Received 08/30/17 11:40 Blood Peripheral Anaerobic Blood Culture Pending Received 08/30/17 11:34 Blood Peripheral Aerobic Blood Culture Pending Received 08/30/17 11:34 Blood Peripheral Anaerobic Blood Culture Pending Received Imaging Studies Last 24 hours Impressions Thoracic Spine CT 08/30/17 0100 Signed Impressions: Service Date/Time: August 01:37 - CONCLUSION: 1. No fracture, subluxation or other acute abnormality of the thoracic spine. 2. Scoliosis and mild multifocal degenerative changes as above. 3. Complex appearing cystic structures of the upper poles of both kidneys. Comparison to any previous outside facility studies is recommended to confirm chronicity and stability. Contrast enhanced study of the abdomen suggested if felt clinically indicated, preferably MRI if there are no contraindications. Tim Jones MD Lumbar Spine CT 08/30/17 0100 Signed Impressions: Service Date/Time: August 01:37 - CONCLUSION: 1. No acute fracture or acute subluxation of the lumbar spine. 2. 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 3. Mild spinal and bilateral foraminal stenosis at L4/L5. 4. Mild right and moderate left foraminal stenosis at L5/S1. 5. Benign vertebral body hemangioma of L1. No concerning lumbar spine bone lesion. Tim Jones MD Head CT 08/30/170 Signed Impressions: Service Date/Time: August 01:37 - CONCLUSION: Small frontal madina-falcine subdural blood is unchanged. Tim Jones MD Carotid Artery Ultrasound 08/30/17 0000 Signed Impressions: Service Date/Time: August 07:52 - CONCLUSION: 1. Diffuse calcified plaque throughout carotid arteries bilaterally with resultant moderate, 50-69%%, stenosis of the internal carotid arteries bilaterally and likely moderate stenosis of the left common carotid artery. 2. Antegrade vertebral artery flow bilaterally. Lopez Taylor MD Brain MRI 08/30/17 0000 Signed Impressions: Service Date/Time: August 09:27 - CONCLUSION: 1. Right frontal parafalcine abnormality on CT exam corresponds to a small meningioma. No definitive intra-or extra-axial hemorrhage. Lopez Taylor MD Head CT 08/29/17 1254 Signed Impressions: Service Date/Time: Tuesday, August 29, 2017 13:22 - CONCLUSION: 1. Small focal region of increased density in the anterior falx concerning for hemorrhage. Differential considerations include dystrophic calcification. Recommend close interval followup CT examination. Lopez Taylor MD Administered Medications Medications (Trade) Dose Ordered Sig/Robert Route PRN Reason Start Time Stop Time Status Last Admin Dose Admin Sodium Chloride 1,000 ml @ 84 mls/hr [id number] IV 08/29/17 16:00 08/30/17 10:21 Sodium Chloride (NS Flush) 2 ml BID IV FLUSH 08/29/17 21:00 08/30/17 09:00 Pantoprazole Sodium (Protonix Inj) 40 mg DAILY IV PUSH 08/30/17 09:00 08/30/17 10:19 Albuterol/ Ipratropium (Duoneb Neb) 1 ampule Q6HR NEB INH 08/29/17 16:00 08/30/17 02:44 Chlorhexidine Gluconate (Chlorhexidine 2% Cloth) 3 pack Taper DAILY@04 TOP 08/30/17 04:00 08/26/18 03:59 08/30/17 04:00 Senna/Docusate Sodium (Madina-Colace) 1 tab BID PO 08/29/17 21:00 08/30/17 10:19 Fentanyl Citrate (fentaNYL INJ) 50 mcg Q3H PRN IV PUSH PAIN SCALE 7 TO 10 08/29/17 20:30 08/30/17 04:41 Albuterol Sulfate (Proair Hfa Inh) 2 puff Q6H PRN INH SHORTNESS OF BREATH 08/29/17 18:00 08/30/17 10:20 Amlodipine Besylate (Norvasc) 10 mg DAILY PO 08/30/17 09:00 08/30/17 10:20 Budesonide/ Formoterol Fumarate (Symbicort 160-4.5 Mcg Inh) 2 puff BID INH 08/29/17 21:00 08/30/17 10:20 Objective Remarks GENERAL: Elderly male, sitting up in bed in nad. SKIN: Warm and dry. HEAD: Normocephalic. EYES: No scleral icterus. No injection or drainage. NECK: Supple, trachea midline. CARDIOVASCULAR: +S1/S2 RESPIRATORY: anterior bridges clear. GASTROINTESTINAL: Abdomen soft, non-tender, nondistended. EXTREMITIES: No cyanosis NEUROLOGICAL: awake and alert. normal speech. Assessment/Plan Problem List: (1) Normocytic anemia ICD Codes: D64.9 - Anemia, unspecified Plan: --suspect bone marrow disorder, awaiting BMB ++also has bone pain, back pain, elevated LDH, as well as the sweats that suggests a more systemic manifestation of bone marrow disorder. ++ Nucleated red cells seen on peripheral smear. no acute blasts. --goal to keep his platelet count above 20,000. (2) Thrombocytopenia ICD Codes: D69.6 - Thrombocytopenia, unspecified Status: Acute Assessment 72y/o male with anemia + thrombocytopenia. history of prostate cancer, status post prostatectomy, coronary artery disease, s/p stent placement. history of Muñoz's esophagus Plan 1. monitor CBC 2. await bone marrow biopsy. 3. continue supportive care. 4. transfuse to keep platelets greater than 20K Attending Statement The exam, history, and the medical decision-making described in the above note were completed with the assistance of the mid-level provider. I reviewed and agree with the findings presented. I attest that I had a [id number] encounter with the patient on the same day, and personally performed and documented my assessment and findings in the medical record. Pt seen and examined in AM. Peripheral smear reviewed with pathology. Noted some dysplastic changes, no platelets, no schistocytes. Above argue for underlying bone marrow pathology, discussed w/ pt risk and benefit of bone marrow bx by IR. No acute bleeding. Platelet count increased with 2 platelets, CT was stable. No clinical sign of bleed, noted MRI no evidence of bleed. Consider more conservative target for platelet count transfusion >20K. Hgb will be monitored. 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 Laurita Davila Aug 30, 2017 12:52 Shahla Duron MD Aug 30, 2017 17:12
--- NOTE | 2017-08-30 13:33 | EKG ---
Date Performed: 08/29/2017 Time Performed: 15:50:56 PTAGE: 72 years EKG: Sinus rhythm NORMAL ECG NO PREVIOUS TRACING DOCTOR: Ishmael Wilcox Interpretating Date/Time 08/30/2017 13:32:14
--- NOTE | 2017-08-30 13:33 | EKG ---
Date Performed: 08/29/2017 Time Performed: 18:20:27 PTAGE: 72 years EKG: Sinus rhythm NORMAL ECG Since the PREVIOUS TRACING , no significant change noted PREVIOUS TRACIN08/29/2017 15.50 DOCTOR: Ishmael Wilcox Interpretating Date/Time 08/30/2017 13:32:22
--- NOTE | 2017-08-30 14:12 | PD.CONS ---
HPI Consult Requested By Primary Care Physician Non-Staff History of Present Illness Mr. Rico is a 72-year-old man with multiple medical problems, including history of prostate cancer, status post prostatectomy, coronary artery disease, status post stent placement. Apparently he has had a recent fall before coming down to [place] and had a rotator cuff injury. He was treatedf with physical therapy. [place] the [place] and he developed severe back pain, prompting him to buy Icy Hot compresses. He then went to the urgent care center where he was given a course of anti-inflammatory medication and pain medications He developed progressive shortness of breath. He noticed some bruising over the past week. He lost the hearing in his left ear suddenly. Because of the hearing he went into the urgent care, a second time. He had worsening dizziness with sensation of passing out and therefore came to the emergency room. His platelet count of 5000. He has bruising and petechia on his abdomen. His CT scan of the head showed a small focal region of increased density in the falx concerning for subdural hemorrhage. He denies any focal motor weakness. He denies any sensory loss. No seizure activity. No incontinence of stool or urine. Neurosurgical consultation was requested Review of Systems Constitutional: COMPLAINS OF: Chills, DENIES: Diaphoretic episodes, Fatigue, Fever, Weight gain, Weight loss, Dizziness, Change in appetite, Night Sweats Endocrine: COMPLAINS OF: Heat/cold intolerance, DENIES: Polydipsia, Polyuria, Polyphagia Eyes: DENIES: Blurred vision, Diplopia, Eye inflammation, Eye pain, Vision loss , Photosensitivity, Double Vision Ears, nose, mouth, throat: COMPLAINS OF: Hearing loss, DENIES: Tinnitus, Vertigo, Nasal discharge, Oral lesions, Throat pain, Hoarseness, Ear Pain, Running Nose, Epistaxis, Sinus Pain, Toothache, Odynophagia Respiratory: DENIES: Apneas, Cough, Snoring, Wheezing, Hemoptysis, Sputum production, Shortness of breath Cardiovascular: DENIES: Chest pain, Palpitations, Syncope, Dyspnea on Exertion , PND, Lower Extremity Edema, Orthopnea, Claudication Gastrointestinal: COMPLAINS OF: Bloody stools, DENIES: Abdominal pain, Black stools, Constipation, Diarrhea, Nausea, Vomiting, Difficulty Swallowing, Anorexia Genitourinary: DENIES: Sexual dysfunction, Urinary frequency, Urinary incontinence, Urgency, Hematuria, Dysuria, Nocturia, Penile Discharge, Testicular Pain, Testicular Swelling Musculoskeletal: COMPLAINS OF: Joint pain, DENIES: Muscle aches, Stiffness, Joint Swelling, Back pain, Neck pain Integumentary: DENIES: Abnormal pigmentation, Nail changes, Pruritus, Rash Hematologic/lymphatic: COMPLAINS OF: Bruising, DENIES: Lymphadenopathy Immunologic/allergic: DENIES: Eczema, Urticaria Neurologic: DENIES: Abnormal gait, Headache, Localized weakness, Paresthesias, Seizures, Speech Problems, Tremor, Poor Balance Past Family Social History Allergies: Coded Allergies: Penicillins (Verified Allergy, Severe, Itching, 08/29/17) Quinolones (Verified Allergy, Severe, Swelling, 08/29/17) acetaminophen (Verified Allergy, Severe, Hives, 08/29/17) hydrocodone (Verified Allergy, Severe, Itching, 08/29/17) meperidine (Verified Allergy, Unknown, 08/29/17) Past Medical History Prostate cancer, asthma, gastroesophageal reflux, Muñoz's esophagus, hypertension, new anemia, new thrombocytopenia, rotator cuff injury, back pain. Past Surgical History Prostatectomy, cholecystectomy, coronary stent placement, thoracentesis for a pleural effusion. Reported Medications : 1. Protonix. 2. Norvasc. 3. Chlorhexidine. 4. Madina-Colace. 5. Symbicort. 6. Albuterol. 7. Fentanyl p.r.n. 8. Ondansetron p.r.n. 9. DuoNebs p.r.n. 10. Senna p.r.n. 11. Lactulose p.r.n. Active Ordered Medications Current Medications Sodium Chloride 1,000 ml @ 125 mls/hr Q8H IV Last administered on 08/29/17at 11 :22; Start 08/29/17 at 11:01; Stop 08/29/17 at 19:00; Status DC Sodium Chloride (NS Flush) 2 ml UNSCH PRN IVF FLUSH AFTER USING IV ACCESS; Start 08/29/17 at 11:15; Stop 08/29/17 at 19:43; Status DC Sodium Chloride 1,000 ml @ 84 mls/hr [id number] IV Last administered on at 15:51; Start 08/29/17 at 16:00 Sodium Chloride (NS Flush) 2 ml UNSCH PRN IV FLUSH FLUSH AFTER USING IV ACCESS ; Start 08/29/17 at 15:45 Sodium Chloride (NS Flush) 2 ml BID IV FLUSH Last administered on 08/31/17at 09: 00; Start 08/29/17 at 21:00 Pantoprazole Sodium (Protonix Inj) 40 mg DAILY IV PUSH Last administered on at 09:24; Start 08/30/17 at 09:00 Ondansetron HCl (Zofran Inj) 4 mg Q6H PRN IV PUSH NAUSEA OR VOMITING; Start at 16:00 Albuterol/ Ipratropium (Duoneb Neb) 1 ampule Q6HR NEB INH Last administered on 08/31/17at 15:25; Start 08/29/17 at 16:00 Albuterol/ Ipratropium (Duoneb Neb) 1 ampule Q2HR NEB PRN INH WHEEZING; Start 08/29/17 at 16:00 Miscellaneous Information 1 [id number] XX ; Start 08/29/17 at 15:45 Chlorhexidine Gluconate (Chlorhexidine 2% Cloth) 3 pack Taper DAILY@04 TOP Last administered on 08/31/17at 04:00; Start 08/30/17 at 04:00; Stop 08/26/18 at 03:59 Chlorhexidine Gluconate (Chlorhexidine 2% Cloth) 3 pack UNSCH PRN TOP HYGIENIC CARE; Start 08/29/17 at 15:45 Senna/Docusate Sodium (Madina-Colace) 1 tab BID PO Last administered on at 09:24; Start 08/29/17 at 21:00 Magnesium Hydroxide (Milk Of Magnesia Liq) 30 ml Q12H PRN PO Mild constipation ; Start 08/29/17 at 16:00 Sennosides (Senokot) 17.2 mg Q12H PRN PO Moderate constipation; Start 08/29/17 at 16:00 Bisacodyl (Dulcolax Supp) 10 mg DAILY PRN RECTAL SEVERE CONSITIPATION; Start at 16:00 Lactulose (Lactulose Liq) 30 ml DAILY PRN PO SEVERE CONSITIPATION; Start at 16:00 Potassium Chloride 100 ml @ 50 mls/hr Q2H PRN IV For Potassium 2.8 - 3.2 mEq/L ; Start 08/29/17 at 16:00 Potassium Chloride 100 ml @ 50 mls/hr Q2H PRN IV For Potassium 2.8 - 3.2 mEq/L ; Start 08/29/17 at 16:00 Potassium Bicarb/ Potassium Chloride (K-Lyte Cl Eff) 50 meq UNSCH PRN PO For Potassium 3.3 - 3.5 mEq/L; Start 08/29/17 at 16:00 Potassium Chloride 100 ml @ 25 mls/hr UNSCH PRN IV For Potassium 3.3 - 3.5 mEq /L; Start 08/29/17 at 16:00 Potassium Chloride 100 ml @ 50 mls/hr Q2H PRN IV For Potassium 3.3 - 3.5 mEq/L ; Start 08/29/17 at 16:00 Magnesium Sulfate 4 gm/Sodium Chloride 100 ml @ 50 mls/hr UNSCH PRN IV For Magnesium 0.9 - 1.1 mg/dL; Start 08/29/17 at 16:00 Magnesium Oxide (Mag-Ox) 800 mg UNSCH PRN PO For Magnesium 1.2 - 1.6 mg/dL; Start 08/29/17 at 16:00 Magnesium Sulfate 2 gm/Sodium Chloride 100 ml @ 50 mls/hr UNSCH PRN IV For Magnesium 1.2 - 1.6 mg/dL; Start 08/29/17 at 16:00 Potassium Phosphate (K-Phos) 2,000 mg Q4H PRN PO For Phosphorus < 2.5 mg/dL; Start 08/29/17 at 16:00 Sodium Phosphate 30 mmol/Sodium Chloride 250 ml @ 42 mls/hr UNSCH PRN IV For Phosphorus < 2.5 mg/dL; Start 08/29/17 at 16:00 Potassium Phosphate (K-Phos) 2,000 mg UNSCH PRN PO/TUBE SEE LABEL COMMENTS; Start 08/29/17 at 16:00 Potassium Phosphate 30 mmol/ Sodium Chloride 260 ml @ 42 mls/hr UNSCH PRN IV SEE LABEL COMMENTS; Start 08/29/17 at 16:00 Fentanyl Citrate (fentaNYL INJ) 50 mcg Q3H PRN IV PUSH PAIN SCALE 7 TO 10 Last administered on 08/31/17 15:52; Start 08/29/17 at 20:30 Albuterol Sulfate (Proair Hfa Inh) 2 puff Q6H PRN INH SHORTNESS OF BREATH Last administered on 08/30/17 10:20; Start 08/29/17 at 18:00 Amlodipine Besylate (Norvasc) 10 mg DAILY PO Last administered on 08/31/17 09: 24; Start 08/30/17 at 09:00 Non-Formulary Medication 1 puff BID INH ; Start 08/29/17 at 21:00; Status UNV Budesonide/ Formoterol Fumarate (Symbicort 160-4.5 Mcg Inh) 2 puff BID INH Last administered on 08/31/17 09:24; Start 08/29/17 at 21:00 Gadodiamide (Omniscan Pf Inj) 19 ml STK-MED ONCE IVCONTRAST Last administered on 08/30/17at 09:45; Start 08/30/17 at 09:45; Stop 08/30/17 at 09:46; Status DC Ramipril (Altace) 10 mg DAILY PO Last administered on 08/31/17 09:24; Start at 14:00 Midazolam HCl (Versed Inj) 4 mg STK-MED ONCE .ROUTE Last administered on 16:12; Start 08/30/17 at 16:12; Stop 08/30/17 at 16:13; Status DC Fentanyl Citrate (fentaNYL INJ) 200 mcg STK-MED ONCE IV Last administered on 16:12; Start 08/30/17 at 16:12; Stop 08/30/17 at 17:24; Status DC Lidocaine HCl (Xylocaine 1% Inj) 10 ml STK-MED ONCE SQ Last administered on 17:24; Start 08/30/17 at 17:24; Stop 08/30/17 at 17:26; Status DC Family History His family history was reviewed and noncontributory to the present admission Social History He drinks alcohol rarely. Denies any tobacco or illicit drug use. He is . He is with his down in [place] for the month. Physical Exam Vital Signs Vital Signs Date Time Temp Pulse Resp B/P (MAP) Pulse Ox O2 Delivery O2 Flow Rate FiO2 08/30/17 11:00 92 26 93 08/30/17 11:00 92 08/30/17 09:01 93 42 152/70 (97) 93 08/30/17 09:01 93 08/30/17 09:00 98 46 92 08/30/17 09:00 98 08/30/17 08:00 85 08/30/17 08:00 98.6 85 26 133/64 (87) 91 08/30/17 07:00 86 28 119/66 (83) 93 08/30/17 06:00 89 08/30/17 06:00 86 26 119/61 (80) 92 08/30/17 05:00 87 28 129/61 (83) 90 08/30/17 04:00 92 08/30/17 04:00 98.9 92 28 126/61 (82) 92 08/30/17 03:00 90 31 126/69 (88) 92 08/30/17 02:00 90 08/30/17 02:00 87 28 123/61 (81) 92 08/30/17 01:00 86 28 123/61 (81) 91 08/30/17 00:00 85 08/30/17 00:00 98.8 83 28 121/61 (81) 92 08/29/17 23:48 99.0 84 23 117/62 94 18 23:00 88 25 117/62 (80) 93 18 22:00 91 18 22:00 87 18 21:00 89 29 92 18 20:00 99.0 92 29 92 1818 20:00 86 18 20:00 92 18 19:26 97 1818 19:10 98.8 85 26 114/56 93 18/18 19:00 86 29 114/56 (75) 95 18/18 18:25 98.8 18/18 18:11 99.3 87 30 114/56 94 18/18 18:07 99.3 87 24 114/56 93 18/18 18:00 86 18 18:00 99.1 87 24 114/56 (75) 96 08/29/17 17:21 08/29/17 17:00 88 20 109/59 (76) 97 Room Air 08/29/17 16:00 94 21 08/29/17 15:23 88 20 104/55 (71) 95 Room Air Physical Exam The patient is alert, awake and oriented to time, place and person. Speech is fluent. Cranial nerve examination: pupils to be equal, round and reactive to light. Extra-ocular movements are intact. Facial motor and sensory function are normal and symmetrical. Gross hearing Gross hearing appears lost on the left. Sternocleidomastoid and trapezius muscles are symmetrical. Other cranial nerves are intact. Neck is soft and supple with a good range of motion without pain. Muscle strength is normal in all muscle groups of both upper and lower extremities. Sensory examination is intact to light touch and pin prick in both the upper and lower extremities. Deep tendon reflexes are symmetrical in both upper and lower extremities. There is a bilateral plantar flexion response. Cerebellar examination is unremarkable, without deficits. Lungs are clear Heart regular rhythm is regular rate Skin warm and dry Laboratory Laboratory Tests Test 08/29/17 18:00 08/29/17 20:49 08/30/17 08:23 08/30/17 08:45 Nasal Screen MRSA (PCR) MRSA NOT DETECTED White Blood Count 6.8 7.4 Red Blood Count 2.13 2.66 Hemoglobin 7.0 8.7 Hematocrit 19.7 24.2 Mean Corpuscular Volume 92.1 90.7 Mean Corpuscular Hemoglobin 32.8 32.7 Mean Corpuscular Hemoglobin Concent 35.6 36.1 Red Cell Distribution Width 13.4 13.5 Platelet Count 47 37 Mean Platelet Volume 7.0 6.8 Neutrophils (%) (Auto) 28.0 Lymphocytes (%) (Auto) 35.1 Monocytes (%) (Auto) 33.7 Eosinophils (%) (Auto) 1.9 Basophils (%) (Auto) 1.3 Neutrophils # (Auto) 1.9 Lymphocytes # (Auto) 2.4 Monocytes # (Auto) 2.3 Eosinophils # (Auto) 0.1 Basophils # (Auto) 0.1 CBC Comment AUTO DIFF AUTO DIFF Differential Total Cells Counted 100 100 Neutrophils % (Manual) 26 25 Band Neutrophils % 18 25 Lymphocytes % 31 26 Monocytes % 4 6 Basophils % 2 2 Neutrophils # (Manual) 3.1 4.4 Metamyelocytes 1 2 Nucleated Red Blood Cells 6 14 Differential Comment FINAL DIFF MANUAL FINAL DIFF MANUAL Blastocytes 18 7 Platelet Estimate RARE LOW Platelet Morphology Comment NORMAL NORMAL Blood Smear Pathologist Review Reticulocyte Count 0.7 Absolute Reticulocyte Count 15.0 Blood Urea Nitrogen 31 22 Creatinine 1.03 0.96 Random Glucose 82 85 Total Protein 5.8 6.3 Albumin 2.9 3.2 Calcium Level 9.0 9.5 Phosphorus Level 3.6 Alkaline Phosphatase 78 89 Aspartate Amino Transf (AST/SGOT) 31 31 Alanine Aminotransferase (ALT/SGPT) 28 27 Total Bilirubin 1.1 1.4 Direct Bilirubin 0.3 Sodium Level 144 144 Potassium Level 4.4 4.1 Chloride Level 108 107 Carbon Dioxide Level 23.2 23.1 Anion Gap 13 14 Estimat Glomerular Filtration Rate 71 77 Indirect Bilirubin 0.8 Prothrombin Time 11.3 Prothromb Time International Ratio 1.1 Myelocytes 7 Basophilic Stippling MOD Lactate Dehydrogenase 936 Test 08/30/17 11:34 Blood Urea Nitrogen 22 Creatinine 0.92 Random Glucose 85 Total Protein 6.2 Albumin 3.1 Calcium Level 8.9 Alkaline Phosphatase 86 Aspartate Amino Transf (AST/SGOT) 33 Alanine Aminotransferase (ALT/SGPT) 28 Total Bilirubin 1.7 Sodium Level 143 Potassium Level 4.0 Chloride Level 106 Carbon Dioxide Level 21.9 Anion Gap 15 Estimat Glomerular Filtration Rate 81 Lactic Acid Level 5.3 Date/Time Source Procedure Growth Status 08/30/17 11:40 Blood Peripheral Aerobic Blood Culture Pending Received 08/30/17 11:40 Blood Peripheral Anaerobic Blood Culture Pending Received Result Diagram: 08/30/17 0845 08/30/17 1134 Attending Statement aggressive pulmonary toilette, nasotracheal suction, and breathing treatments with nebulizers. Thrombocytopenia. Needs workup. Trasfuse aggressively to count of 100K Renal. monitor closely urine output, BUN and creatinine Endocrine. Monitor serial Acu checks and SSI as needed in detail ID monitor for signs of infection Protonix for stress ulcer prophylaxis James hose and SCD's for DVT prophylaxis Chino Cho MD Aug 30, 2017 14:12
[2017-08-30] MEDS ORDERED: MIDAZOLAM HCL 2 MG/2 ML VIAL ONE (16:12)
--- NOTE | 2017-08-30 16:36 | PD.RAD ---
Post CT Procedure Prog Note Pre Procedure Diagnosis: (1) Thrombocytopenia Post Procedure Diagnosis: (1) Thrombocytopenia Procedure Date: Aug 30, 2017 Supervising Radiologist: Srikanth Ambrosio Proceduralist/Assist: sarah everett Estimated blood loss: 5cc Anesthesia: Conscious Sedation Plan of Activity Patient to Unit: [facility] Patient Condition: Good See PACS Report for procedural detail/treatment Srikanth Ambrosio MD Aug 30, 2017 16:36
[2017-08-30] MEDS ORDERED: LIDOCAINE HCL 1% 10 ML VIAL SQ ONE (17:24)
[2017-08-30] MEDS: RAMIPRIL 5 MG CAP PO SCH (18:00)
[2017-08-30 19:38] LABS: HEMATOCRIT 24.1 % (39.0-51.0); HEMOGLOBIN 8.6 GM/DL (13.0-17.0)
[2017-08-31] VITALS (30 sets, daily range): BP systolic 115–141; BP diastolic 61–73; PULSE 80–108; RESP 19–36; TEMP 98.4–99; O2SAT 90–96
[2017-08-31] MEDS: RESP: ALBUTEROL 2.5 MG/IPRATROPIUM 0.5 MG NEB (SCH) INH ×4 (03:52→20:17)
[2017-08-31] MEDS: CHLORHEXIDINE GLUCONATE 2 % 1 PACK (2 CLOTHS) TOP SCH (04:00)
[2017-08-31 05:25] LABS: HEMATOCRIT 24.3 % (39.0-51.0); HEMOGLOBIN 8.6 GM/DL (13.0-17.0); MEAN CELL VOLUME 91.9 FL (80.0-100.0); MEAN CORPUSCULAR HEMOGLOBIN 32.7 PG (27.0-34.0); MEAN CORPUSCULAR HGB CONC 35.6 % (32.0-36.0); MEAN PLATELET VOLUME 6.8 FL (7.0-11.0); PLATELET COUNT 48 TH/MM3 (150-450); RED BLOOD COUNT 2.64 MIL/MM3 (4.50-5.90); RED CELL DISTRIBUTION WIDTH 13.8 % (11.6-17.2); WHITE BLOOD COUNT 8.1 TH/MM3 (4.0-11.0)
[2017-08-31 05:39] LABS: ALBUMIN 3.2 GM/DL (3.4-5.0); AST (GOT) 50 U/L (15-37); BICARBONATE 22.1 MEQ/L (21.0-32.0); BLOOD UREA NITROGEN 23 MG/DL (7-18); CALCIUM 8.8 MG/DL (8.5-10.1); CHLORIDE 105 MEQ/L (98-107); CREATININE 0.98 MG/DL (0.60-1.30); GLOMERULAR FILTRATION RATE 75 ML/MIN (>89); GLUCOSE,RANDOM 74 MG/DL (74-106); SODIUM (NA) 142 MEQ/L (136-145)
[2017-08-31 05:41] LABS: ALT (GPT) 37 U/L (12-78)
[2017-08-31 05:44] LABS: ALKALINE PHOSPHATASE 131 U/L (45-117); TOTAL PROTEIN 6.4 GM/DL (6.4-8.2)
--- NOTE | 2017-08-31 07:48 | RADRPT ---
EXAM DATE/TIME: 08/30/2017 16:19 [facility] COMPARISON: No previous studies available for comparison. INDICATIONS : Thrombocytopenia SEDATION TIME: 30 minutes BIOPSY SITE: Right Ilium MEDICATION(S): 1.) 2 mg midazolam (Versed) IV 2.) 100 mcg fentanyl (Sublimaze) IV DEVICE(S): 1.) 11 gauge On-Control needle MEDICAL HISTORY : Carcinoma, prostate. Hypertension. SURGICAL HISTORY : Coronary artery stent. Prostatectomy. ENCOUNTER: Initial ACUITY: 1 day PAIN SCORE: 0/10 LOCATION: Bone marrow A total of one core specimen(s) were obtained and sent to the laboratory for pathologic evaluation. PROCEDURE: 1. CT guided bone marrow biopsy. 2. Conscious sedation with continuous EKG and oximetry monitoring. Prior to the procedure informed consent was obtained. Any appropriate prior imaging studies were rev iewed. Using automated exposure control and adjustment of the mA and/or kV according to patient size , radiation dose was kept as low as reasonably achievable to obtain optimal diagnostic quality images . DICOM format image data is available electronically for review and comparison. The site was prepped in a sterile fashion. Full sterile technique was used, including cap, mask, michael rile gloves and gown and a large sterile sheet. Hand hygiene and 2% chlorhexidine and/or betadine/al cohol prep was utilized per protocol for cutaneous antisepsis. The skin and subcutaneous tissues wer e infiltrated with local anesthetic solution. With CT guidance the previously identified target was localized. Biopsy was performed using the presc ribed needle as above. Following biopsy marrow aspiration was performed with repeat puncture. Adequa te hemostasis was obtained with compression at the puncture site. Follow-up CT scan reveals no hemorrhage. Conscious sedation was performed with the prescribed dosages and duration as above in the presence of an independent trained radiology nurse to assist in the monitoring of the patient. EKG and oximetry remained stable throughout the procedure. The patient tolerated the procedure well and there were no complications. The patient was sent to Radiology Outpatient Unit in stable condition. CONCLUSION: 1. Uncomplicated CT guided bone marrow aspirate. 2. Uncomplicated CT guided bone marrow biopsy. Srikanth Ambrosio MD on August 31, 2017 at 7:45 Board Certified Radiologist. This report was verified electronically.
[2017-08-31 08:12] LABS: BANDS 13 % (0-6); BLASTS 12 % (0-0); LYMPHOCYTES 24 % (9-44); METAMYELOCYTES 1 % (0-1); MONOCYTES 5 % (0-8); MYELOCYTES 4 % (0-0); NEUTROPHIL # MANUAL DIFF 4.6 TH/MM3 (1.8-7.7); POLYS (SEG NEUTROPHILS) 39 % (16-70)
[2017-08-31] MEDS: SODIUM CHLORIDE 0.9% FLUSH 10 ML FLUSH IV FLUSH SCH ×2 (09:00→20:00)
[2017-08-31] MEDS: RAMIPRIL 5 MG CAP PO SCH (09:24)
[2017-08-31] MEDS: BUDESONIDE-FORMOTEROL 160/4.5 MCG INHALER INH SCH ×2 (09:24→20:00)
[2017-08-31] MEDS: PANTOPRAZOLE SODIUM 40 MG VIAL IV PUSH SCH (09:24)
[2017-08-31] MEDS: DOCUSATE SODIUM 50 MG/SENNA 8.6 MG TAB PO SCH ×2 (09:24→20:01)
--- NOTE | 2017-08-31 11:35 | PD.ONC.PN ---
Subjective Subjective Remarks Afebrile overnight. patient resting in bed in nad. No complaints. wanting to go home. denies headache. denies pain. Objective Data Date Time Temp Pulse Resp B/P (MAP) Pulse Ox O2 Delivery O2 Flow Rate FiO2 08/31/17 10:00 82 08/31/17 08:00 80 08/31/17 07:53 92 08/31/17 06:00 84 08/31/17 06:00 86 27 133/69 (90) 94 08/31/17 05:00 86 28 133/67 (89) 94 08/31/17 04:00 98.7 85 25 126/66 (86) 95 08/31/17 04:00 85 25 126/66 (86) 95 08/31/17 04:00 89 08/31/17 03:52 96 Nasal Cannula 2.00 08/31/17 03:00 80 25 127/64 (85) 95 08/31/17 02:00 93 28 120/67 (84) 94 08/31/17 02:00 93 28 120/67 (84) 94 08/31/17 02:00 81 08/31/17 01:00 81 36 123/61 (81) 94 08/31/17 00:00 99.0 84 26 115/64 (81) 95 08/31/17 00:00 83 08/30/17 23:00 82 29 133/63 (86) 94 08/30/17 22:00 82 08/30/17 22:00 88 28 129/61 (83) 92 08/30/17 21:00 86 24 125/60 (81) 90 08/30/17 20:00 86 08/30/17 19:38 93 Nasal Cannula 2.00 08/30/17 19:00 87 31 91 08/30/17 19:00 87 18 18:00 82 08/30/17 18:00 82 32 91 18 17:48 83 08/30/17 17:48 83 27 123/59 (80) 92 08/30/17 17:00 84 35 93 08/30/17 17:00 84 18 16:40 83 08/30/17 16:40 83 23 124/57 (79) 97 08/30/17 16:32 86 23 125/63 (83) 96 08/30/17 16:32 86 08/30/17 16:28 98.4 86 22 128/68 (88) 97 08/30/17 16:28 86 08/30/17 16:26 86 08/30/17 16:26 86 22 129/65 (86) 97 08/30/17 16:17 91 23 136/69 (91) 93 08/30/17 16:17 91 08/30/17 16:10 92 20 139/74 (95) 93 08/30/17 16:10 92 08/30/17 16:00 90 27 93 08/30/17 16:00 90 08/30/17 15:00 86 29 91 08/30/17 15:00 86 08/30/17 14:00 85 08/30/17 14:00 85 27 92 08/30/17 13:45 98.6 82 20 148/65 94 08/30/17 13:31 91 33 148/66 (93) 92 08/30/17 13:31 91 08/30/17 13:00 90 08/30/17 13:00 90 31 93 08/30/17 12:00 85 08/30/17 12:00 85 30 91 08/31/17 08/31/17 08/31/17 07:00 15:00 23:00 Intake Total 900 ml Output Total 1500 ml Balance -600 ml Result Diagram: 08/31/17 0444 08/31/17 0444 Laboratory Results Laboratory Tests Test 08/30/17 11:34 08/30/17 16:27 08/30/17 19:06 08/31/17 04:44 Blood Urea Nitrogen 22 MG/DL 23 MG/DL Creatinine 0.92 MG/DL 0.98 MG/DL Random Glucose 85 MG/DL 74 MG/DL Total Protein 6.2 GM/DL 6.4 GM/DL Albumin 3.1 GM/DL 3.2 GM/DL Calcium Level 8.9 MG/DL 8.8 MG/DL Alkaline Phosphatase 86 U/L 131 U/L Aspartate Amino Transf (AST/SGOT) 33 U/L 50 U/L Alanine Aminotransferase (ALT/SGPT) 28 U/L 37 U/L Total Bilirubin 1.7 MG/DL 2.0 MG/DL Sodium Level 143 MEQ/L 142 MEQ/L Potassium Level 4.0 MEQ/L 3.8 MEQ/L Chloride Level 106 MEQ/L 105 MEQ/L Carbon Dioxide Level 21.9 MEQ/L 22.1 MEQ/L Anion Gap 15 MEQ/L 15 MEQ/L Estimat Glomerular Filtration Rate 81 ML/MIN 75 ML/MIN Lactic Acid Level 5.3 mmol/L 4.8 mmol/L 4.8 mmol/L Hemoglobin 8.6 GM/DL 8.6 GM/DL Hematocrit 24.1 % 24.3 % White Blood Count 8.1 TH/MM3 Red Blood Count 2.64 MIL/MM3 Mean Corpuscular Volume 91.9 FL Mean Corpuscular Hemoglobin 32.7 PG Mean Corpuscular Hemoglobin Concent 35.6 % Red Cell Distribution Width 13.8 % Platelet Count 48 TH/MM3 Mean Platelet Volume 6.8 FL CBC Comment AUTO DIFF Differential Total Cells Counted 100 Neutrophils % (Manual) 39 % Band Neutrophils % 13 % Lymphocytes % 24 % Monocytes % 5 % Eosinophils % 2 % Neutrophils # (Manual) 4.6 TH/MM3 Metamyelocytes 1 % Myelocytes 4 % Differential Comment FINAL DIFF MANUAL Blastocytes 12 % Platelet Estimate LOW Platelet Morphology Comment NORMAL Culture Results Microbiology Date/Time Source Procedure Growth Status 08/30/17 11:40 Blood Peripheral Aerobic Blood Culture - Preliminary NO GROWTH IN 1 DAY Resulted 08/30/17 11:40 Blood Peripheral Anaerobic Blood Culture - Preliminary NO GROWTH IN 1 DAY Resulted 08/30/17 11:34 Blood Peripheral Aerobic Blood Culture - Preliminary NO GROWTH IN 1 DAY Resulted 08/30/17 11:34 Blood Peripheral Anaerobic Blood Culture - Preliminary NO GROWTH IN 1 DAY Resulted Imaging Studies Last 24 hours Impressions Bone Biopsy CT 08/30/17 1535 Signed Impressions: Service Date/Time: August 16:19 - CONCLUSION: 1. Uncomplicated CT guided bone marrow aspirate. 2. Uncomplicated CT guided bone marrow biopsy. Srikanth Ambrosio MD Administered Medications Medications (Trade) Dose Ordered Sig/Robert Route PRN Reason Start Time Stop Time Status Last Admin Dose Admin Sodium Chloride 1,000 ml @ 84 mls/hr [id number] IV 08/29/17 16:00 08/30/17 22:51 Sodium Chloride (NS Flush) 2 ml BID IV FLUSH 08/29/17 21:00 08/31/17 09:00 Pantoprazole Sodium (Protonix Inj) 40 mg DAILY IV PUSH 08/30/17 09:00 08/31/17 09:24 Albuterol/ Ipratropium (Duoneb Neb) 1 ampule Q6HR NEB INH 08/29/17 16:00 08/31/17 07:51 Chlorhexidine Gluconate (Chlorhexidine 2% Cloth) 3 pack Taper DAILY@04 TOP 08/30/17 04:00 08/26/18 03:59 08/31/17 04:00 Senna/Docusate Sodium (Madina-Colace) 1 tab BID PO 08/29/17 21:00 08/31/17 09:24 Fentanyl Citrate (fentaNYL INJ) 50 mcg Q3H PRN IV PUSH PAIN SCALE 7 TO 10 08/29/17 20:30 08/30/17 22:51 Albuterol Sulfate (Proair Hfa Inh) 2 puff Q6H PRN INH SHORTNESS OF BREATH 08/29/17 18:00 08/30/17 10:20 Amlodipine Besylate (Norvasc) 10 mg DAILY PO 08/30/17 09:00 08/31/17 09:24 Budesonide/ Formoterol Fumarate (Symbicort 160-4.5 Mcg Inh) 2 puff BID INH 08/29/17 21:00 08/31/17 09:24 Ramipril (Altace) 10 mg DAILY PO 08/30/17 14:00 08/31/17 09:24 Objective Remarks GENERAL: Elderly male, upright in bed in nad. SKIN: Warm and dry. HEAD: Normocephalic. EYES: No scleral icterus. No injection or drainage. NECK: Supple, trachea midline. CARDIOVASCULAR: +S1/S2 RESPIRATORY: anterior bridges clear. GASTROINTESTINAL: Abdomen soft, non-tender, nondistended. EXTREMITIES: No cyanosis NEUROLOGICAL: awake and alert. normal speech. moving all extremities. Assessment/Plan Problem List: (1) Normocytic anemia ICD Codes: D64.9 - Anemia, unspecified Plan: --s/p bone marrow biopsy, awaiting pathology ++also has bone pain, back pain, elevated LDH, as well as the sweats that suggests a more systemic manifestation of bone marrow disorder. ++ Nucleated red cells seen on peripheral smear. no acute blasts. (2) Thrombocytopenia ICD Codes: D69.6 - Thrombocytopenia, unspecified Status: Acute Assessment 72y/o male with anemia + thrombocytopenia. history of prostate cancer, status post prostatectomy, coronary artery disease, s/p stent placement. history of Muñoz's esophagus Plan 1. monitor CBC 2. await pathology from bone marrow biopsy 3. ok to transfer to out of [facility] from oncology perspective. Attending Statement The exam, history, and the medical decision-making described in the above note were completed with the assistance of the mid-level provider. I reviewed and agree with the findings presented. I attest that I had a [id number] encounter with the patient on the same day, and personally performed and documented my assessment and findings in the medical record. PT seen and examined. Hgb and platelet stable. No acute bleeding, no transfusion needed today. BM bx done, pending results, await flow to rule out AML, suspect MDS, smear with dysplastic changes. Recommendations pending on dx: Laurita Davila Aug 31, 2017 11:35 Shahla Duron MD Aug 31, 2017 18:54
--- NOTE | 2017-08-31 15:11 | HHI.GIFU ---
Subjective Remarks Pt resting in bed Reports BM just prior to my exam, states the nurse did not see any obvious bleeding Now eating solid food, tolerating Denies nausea, vomiting, abdominal pain (Sandra Sin) Objective Vitals I&O Vital Signs Date Time Temp Pulse Resp B/P (MAP) Pulse Ox O2 Delivery O2 Flow Rate FiO2 08/31/17 13:00 84 08/31/17 13:00 84 29 131/71 (91) 90 08/31/17 12:00 86 08/31/17 12:00 98.4 86 27 127/62 (83) 93 08/31/17 11:00 88 31 141/70 (93) 92 08/31/17 10:00 82 08/31/17 10:00 86 29 129/65 (86) 92 08/31/17 09:21 108 19 120/72 (88) 92 08/31/17 09:00 90 26 131/67 (88) 92 08/31/17 08:00 80 08/31/17 08:00 98.6 85 28 135/64 (87) 90 08/31/17 07:53 92 08/31/17 07:00 85 30 133/69 (90) 92 08/31/17 06:00 84 08/31/17 06:00 86 27 133/69 (90) 94 08/31/17 05:00 86 28 133/67 (89) 94 08/31/17 04:00 98.7 85 25 126/66 (86) 95 08/31/17 04:00 85 25 126/66 (86) 95 08/31/17 04:00 89 08/31/17 03:52 96 Nasal Cannula 2.00 08/31/17 03:00 80 25 127/64 (85) 95 08/31/17 02:00 93 28 120/67 (84) 94 08/31/17 02:00 93 28 120/67 (84) 94 08/31/17 02:00 81 08/31/17 01:00 81 36 123/61 (81) 94 08/31/17 00:00 99.0 84 26 115/64 (81) 95 08/31/17 00:00 83 08/30/17 23:00 82 29 133/63 (86) 94 08/30/17 22:00 82 08/30/17 22:00 88 28 129/61 (83) 92 18 21:00 86 24 125/60 (81) 90 18 20:00 86 18 19:38 93 Nasal Cannula 2.00 08/30/17 19:00 87 31 91 18 19:00 87 18 18:00 82 18 18:00 82 32 91 18 17:48 83 18 17:48 83 27 123/59 (80) 92 18 17:00 84 35 93 18 17:00 84 18 16:40 83 18 16:40 83 23 124/57 (79) 97 18 16:32 86 23 125/63 (83) 96 18 16:32 86 18 16:28 98.4 86 22 128/68 (88) 97 18 16:28 86 18 16:26 86 18 16:26 86 22 129/65 (86) 97 18 16:17 91 23 136/69 (91) 93 18 16:17 91 18 16:10 92 20 139/74 (95) 93 08/30/17 16:10 92 08/30/17 16:00 90 27 93 08/30/17 16:00 90 08/30/17 15:00 86 29 91 08/30/17 15:00 86 I/O 08/30/17 08/30/17 08/30/17 08/31/17 08/31/17 08/31/17 06:59 14:59 22:59 06:59 14:59 22:59 Intake Total 1091 ml 1356 ml 665 ml 900 ml Output Total 1700 ml 1500 ml Balance -609 ml 1356 ml 665 ml -600 ml Intake Oral 480 ml 900 ml IV Total 1000 ml Packed Cells 800 ml FFP 211 ml 291 ml Platelets 175 ml Blood Product IV Normal Saline Flush 80 ml 65 ml 10 ml Output Urine Total 1700 ml 1500 ml # Voids 5 # Bowel Movements 0 1 1 Laboratory Laboratory Tests Test 08/30/17 16:27 08/30/17 19:06 08/31/17 04:44 Hemoglobin 8.6 8.6 Hematocrit 24.1 24.3 Lactic Acid Level 4.8 4.8 White Blood Count 8.1 Red Blood Count 2.64 Mean Corpuscular Volume 91.9 Mean Corpuscular Hemoglobin 32.7 Mean Corpuscular Hemoglobin Concent 35.6 Red Cell Distribution Width 13.8 Platelet Count 48 Mean Platelet Volume 6.8 CBC Comment AUTO DIFF Differential Total Cells Counted 100 Neutrophils % (Manual) 39 Band Neutrophils % 13 Lymphocytes % 24 Monocytes % 5 Eosinophils % 2 Neutrophils # (Manual) 4.6 Metamyelocytes 1 Myelocytes 4 Differential Comment FINAL DIFF MANUAL Blastocytes 12 Platelet Estimate LOW Platelet Morphology Comment NORMAL Blood Urea Nitrogen 23 Creatinine 0.98 Random Glucose 74 Total Protein 6.4 Albumin 3.2 Calcium Level 8.8 Alkaline Phosphatase 131 Aspartate Amino Transf (AST/SGOT) 50 Alanine Aminotransferase (ALT/SGPT) 37 Total Bilirubin 2.0 Sodium Level 142 Potassium Level 3.8 Chloride Level 105 Carbon Dioxide Level 22.1 Anion Gap 15 Estimat Glomerular Filtration Rate 75 Date/Time Source Procedure Growth Status 08/30/17 11:40 Blood Peripheral Aerobic Blood Culture - Preliminary NO GROWTH IN 1 DAY Resulted 08/30/17 11:40 Blood Peripheral Anaerobic Blood Culture - Preliminary NO GROWTH IN 1 DAY Resulted Imaging Last Impressions Bone Biopsy CT 08/30/17 1535 Signed Impressions: Service Date/Time: August 16:19 - CONCLUSION: 1. Uncomplicated CT guided bone marrow aspirate. 2. Uncomplicated CT guided bone marrow biopsy. Srikanth Ambrosio MD Thoracic Spine CT 08/30/1799 Signed Impressions: Service Date/Time: August 01:37 - CONCLUSION: 1. No fracture, subluxation or other acute abnormality of the thoracic spine. 2. Scoliosis and mild multifocal degenerative changes as above. 3. Complex appearing cystic structures of the upper poles of both kidneys. Comparison to any previous outside facility studies is recommended to confirm chronicity and stability. Contrast enhanced study of the abdomen suggested if felt clinically indicated, preferably MRI if there are no contraindications. Tim Jones MD Lumbar Spine CT 08/30/17 0100 Signed Impressions: Service Date/Time: August 01:37 - CONCLUSION: 1. No acute fracture or acute subluxation of the lumbar spine. 2. 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 3. Mild spinal and bilateral foraminal stenosis at L4/L5. 4. Mild right and moderate left foraminal stenosis at L5/S1. 5. Benign vertebral body hemangioma of L1. No concerning lumbar spine bone lesion. Tim Jones MD Head CT 08/30/17 0100 Signed Impressions: Service Date/Time: August 01:37 - CONCLUSION: Small frontal maddy-falcine subdural blood is unchanged. Tim Jones MD Carotid Artery Ultrasound 08/30/17 0000 Signed Impressions: Service Date/Time: August 07:52 - CONCLUSION: 1. Diffuse calcified plaque throughout carotid arteries bilaterally with resultant moderate, 50-69%%, stenosis of the internal carotid arteries bilaterally and likely moderate stenosis of the left common carotid artery. 2. Antegrade vertebral artery flow bilaterally. Lopez Taylor MD Brain MRI 08/30/17 0000 Signed Impressions: Service Date/Time: August 09:27 - CONCLUSION: 1. Right frontal parafalcine abnormality on CT exam corresponds to a small meningioma. No definitive intra-or extra-axial hemorrhage. Lopez Taylor MD Physical Exam HEENT: Normocephalic; atraumatic CHEST: Even/unlabored CARDIAC: RRR ABDOMEN: Round, soft, nontender, bowel sounds active EXTREMITIES: No clubbing, cyanosis, or edema. SKIN: Normal; no rash; no jaundice. TRAIN DRIVER: No focal deficits; alert and oriented times three. (Sandra Sin [facility]) Assessment and Plan Plan Assessment: - Anemia- normocytic- on admission H/H was 7.8/23.2 S/P 2 U PRBCs currently 8.6/ 24.3 Pt does report one dark stool, had taken Pepto-Bismol prior. Emesis on day of admission. with similar symptoms and diarrhea, after they both ate [employer] grill. Hematology following- bone marrow biopsy done yesterday- results pending. Abs retic-15 Retic count-0.7 Haptoglobin-129 LDH-936 Pt reports last EGD and colonoscopy done 2 years ago - Thrombocytopenia - platelets 5 on admission, now S/P 3 U platelets currently 48 - History of [place] S/P stent placement x 2 in 2004- only on ASA at home- previously on Plavix. - Abnormal imaging- MRI brain --> Right frontal parafalcine abnormality on CT exam corresponds to a small meningioma. No definitive intro or extra-axial hemorrhage. Pt with complaints of dizziness on arrival Plan EGD and colonoscopy when platelets improve- tentatively early next week Protonix MARILY Bone marrow biopsy pending Hematology following Further recommendations based on clinical course and results of above This patient has been seen and examined by myself and Dr. Hong and this note is written on her behalf (Sandra Sin) Sandra Sin Aug 31, 2017 15:10 Melba Hong MD Aug 31, 2017 17:25
[2017-08-31] MEDS: SODIUM CHLOR 0.9% 1000 ML INJ 1,000 ML IV SCH (15:51)
--- NOTE | 2017-08-31 16:41 | HHI.PR ---
Subjective Remarks Follow-up for subdural hematoma, thrombocytopenia. Patient is doing well, resting in bed. Denies any chest pain, SOB, fever, chills. No bleeding. Objective Vitals Vital Signs Date Time Temp Pulse Resp B/P (MAP) Pulse Ox O2 Delivery O2 Flow Rate FiO2 08/31/17 13:00 84 08/31/17 13:00 84 29 131/71 (91) 90 08/31/17 12:00 86 08/31/17 12:00 98.4 86 27 127/62 (83) 93 08/31/17 11:00 88 31 141/70 (93) 92 08/31/17 10:00 82 08/31/17 10:00 86 29 129/65 (86) 92 08/31/17 09:21 108 19 120/72 (88) 92 08/31/17 09:00 90 26 131/67 (88) 92 08/31/17 08:00 80 08/31/17 08:00 98.6 85 28 135/64 (87) 90 08/31/17 07:53 92 08/31/17 07:00 85 30 133/69 (90) 92 08/31/17 06:00 84 08/31/17 06:00 86 27 133/69 (90) 94 08/31/17 05:00 86 28 133/67 (89) 94 08/31/17 04:00 98.7 85 25 126/66 (86) 95 08/31/17 04:00 85 25 126/66 (86) 95 08/31/17 04:00 89 08/31/17 03:52 96 Nasal Cannula 2.00 08/31/17 03:00 80 25 127/64 (85) 95 08/31/17 02:00 93 28 120/67 (84) 94 08/31/17 02:00 93 28 120/67 (84) 94 08/31/17 02:00 81 08/31/17 01:00 81 36 123/61 (81) 94 08/31/17 00:00 99.0 84 26 115/64 (81) 95 08/31/17 00:00 83 08/30/17 23:00 82 29 133/63 (86) 94 08/30/17 22:00 82 08/30/17 22:00 88 28 129/61 (83) 92 08/30/17 21:00 86 24 125/60 (81) 90 08/30/17 20:00 86 08/30/17 19:38 93 Nasal Cannula 2.00 08/30/17 19:00 87 31 91 08/30/17 19:00 87 08/30/17 18:00 82 08/30/17 18:00 82 32 91 08/30/17 17:48 83 08/30/17 17:48 83 27 123/59 (80) 92 08/30/17 17:00 84 35 93 08/30/17 17:00 84 08/30/17 16:40 83 08/30/17 16:40 83 23 124/57 (79) 97 I/O 08/30/17 08/30/17 08/30/17 08/31/17 08/31/17 08/31/17 07:00 15:00 23:00 07:00 15:00 23:00 Intake Total 1091 ml 1541 ml 480 ml 900 ml Output Total 1700 ml 1500 ml Balance -609 ml 1541 ml 480 ml -600 ml Intake Oral 480 ml 900 ml IV Total 1000 ml Packed Cells 800 ml FFP 211 ml 291 ml Platelets 175 ml Blood Product IV Normal Saline Flush 80 ml 75 ml Output Urine Total 1700 ml 1500 ml # Voids 5 # Bowel Movements 0 1 1 Result Diagram: 08/31/17 0444 08/31/17 0444 Imaging Last Impressions Bone Biopsy CT 08/30/17 1535 Signed Impressions: Service Date/Time: August 16:19 - CONCLUSION: 1. Uncomplicated CT guided bone marrow aspirate. 2. Uncomplicated CT guided bone marrow biopsy. Srikanth Ambrosio MD Thoracic Spine CT 08/30/1799 Signed Impressions: Service Date/Time: August 01:37 - CONCLUSION: 1. No fracture, subluxation or other acute abnormality of the thoracic spine. 2. Scoliosis and mild multifocal degenerative changes as above. 3. Complex appearing cystic structures of the upper poles of both kidneys. Comparison to any previous outside facility studies is recommended to confirm chronicity and stability. Contrast enhanced study of the abdomen suggested if felt clinically indicated, preferably MRI if there are no contraindications. Tim Jones MD Lumbar Spine CT 08/30/1799 Signed Impressions: Service Date/Time: August 01:37 - CONCLUSION: 1. No acute fracture or acute subluxation of the lumbar spine. 2. 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 3. Mild spinal and bilateral foraminal stenosis at L4/L5. 4. Mild right and moderate left foraminal stenosis at L5/S1. 5. Benign vertebral body hemangioma of L1. No concerning lumbar spine bone lesion. Tim Jones MD Head CT 08/30/17 0100 Signed Impressions: Service Date/Time: August 01:37 - CONCLUSION: Small frontal maddy-falcine subdural blood is unchanged. Tim Jones MD Carotid Artery Ultrasound 08/30/17 0000 Signed Impressions: Service Date/Time: August 07:52 - CONCLUSION: 1. Diffuse calcified plaque throughout carotid arteries bilaterally with resultant moderate, 50-69%%, stenosis of the internal carotid arteries bilaterally and likely moderate stenosis of the left common carotid artery. 2. Antegrade vertebral artery flow bilaterally. Lopez Taylor MD Brain MRI 08/30/17 0000 Signed Impressions: Service Date/Time: August 09:27 - CONCLUSION: 1. Right frontal parafalcine abnormality on CT exam corresponds to a small meningioma. No definitive intra-or extra-axial hemorrhage. Lopez Taylor MD Objective Remarks GENERAL: Alert, oriented 3, NAD. SKIN: Warm and dry. There are some scattered bruises including lower ext. HEAD: Normocephalic. EYES: No scleral icterus. No injection or drainage. NECK: Supple, trachea midline. No JVD or lymphadenopathy. CARDIOVASCULAR: Regular rate and rhythm without murmurs, gallops, or rubs. RESPIRATORY: Breath sounds equal bilaterally. No accessory muscle use. GASTROINTESTINAL: Abdomen soft, non-tender, nondistended. MUSCULOSKELETAL: No cyanosis, or edema. BACK: Nontender without obvious deformity. No CVA tenderness. Procedures Bone marrow biopsy 08/30/2017. A/P Assessment and Plan Mr. Rico is a pleasant 72 year old male with a history of CAD s/p stents in 2004, HTN, Muñoz's esophagus, prostate cancer who presented to the ED in [place] on 08/29/2017 due to dizziness that started in the beginning of August 2017. He received Meclizine in the outpatient setting without any significant relief of symptoms. He also noticed dark stool as well as spontaneous bruises. Work up in the ED showed severe thrombocytopenia with PLT 5 and anemia with Hgb 7.8. CT brain indicated small focal density region possible in the anterior falx concerning for hemorrhage. Patient received 2 units of PRBCs and one unit of Plts upon admission. Patient was transferred to the main hospital under [facility] and GI, Heme/onc, neurosurgery were consulted. Neurologic: Subdural bleed 1 cm Back pain 08/29-CT brain small focal region increased density in anterior falx concerning for hemorrhage 08/30-repeat CT brain-Small 1 cm frontal maddy-falcine subdural blood is unchanged Repeat CT brain in am MRI shows right frontal parafalcine abnormality on CT exam corresponds to a small meningioma. No definitive intra or extra axial hemorrhage. 08/29 CT thoracic- No fracture, subluxation or other acute abnormality of the thoracic spine. Scoliosis and mild multifocal degenerative changes. 08/29 CT lumbar- No acute fracture or acute subluxation of the lumbar spine. 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 Mild spinal and bilateral foraminal stenosis at L4/L5. Mild right and moderate left foraminal stenosis at L5/S1. Benign vertebral body hemangioma of L1. No concerning lumbar spine bone lesions. Neuro checks per ICU protocol Respiratory: Asthma Duo nebs every 6 hours scheduled and every 2 hours as needed Continue Advair daily, patient's home med and Ventolin as needed Patient's last asthma attack approximately 6 months ago Provide O2 1-4 L/min if needed to maintain O2 saturation greater than 92% Incentive spirometry while awake Cardiovascular: History of [place]- S/P stent placement 2 (2003) Coronary artery disease Hypertension maintain mean arterial pressure greater than 65 Continue Norvas patient's home medication and Ramipril Patient normally takes aspirin daily will hold for now Telemetry showing sinus rhythm Labetalol 10 mg every 6 hours for systolic blood pressure greater than 160 Renal: History of prostate cancer status post XRT No [place] indicated at this time -- Strict I/Os FEN/GI: Muñoz's esophagus GI bleed Electrolyte replacements per ICU protocol Will start regular diet. IVF NS 84cc/hr Zofran for nausea Protonix GI prophylaxis GI consulted discussed w/ Dr. Hong Heme/ID: Anemia Thrombocytopenia Heme-Onc- following LDH- 782 F/U haptoglobin level s/p Transfusion of 2 units of packed red blood cells, and 6 pack of platelets. Endocrine: Glucose monitoring per ICU protocol Full code. Famotidine. No pharmacological DVT prophylaxis for now. Frank Lee DO Aug 31, 2017 16:41
--- NOTE | 2017-08-31 18:49 | HHI.NSPN ---
Note Status Status: Progress Note Interval History Interval History Mr. Rico is a 72-year-old man with multiple medical problems, including history of prostate cancer, status post prostatectomy, coronary artery disease, status post stent placement. Apparently he has had a recent fall before coming down to [place] and had a rotator cuff injury. He was treatedf with physical therapy. [place] the [place] and he developed severe back pain, prompting him to buy Icy Hot compresses. He then went to the urgent care center where he was given a course of anti-inflammatory medication and pain medications He developed progressive shortness of breath. He noticed some bruising over the past week. He lost the hearing in his left ear suddenly. Because of the hearing he went into the urgent care, a second time. He had worsening dizziness with sensation of passing out and therefore came to the emergency room. His platelet count of 5000. He has bruising and petechia on his abdomen. His CT scan of the head showed a small focal region of increased density in the falx concerning for subdural hemorrhage. He denies any focal motor weakness. He denies any sensory loss. No seizure activity. No incontinence of stool or urine. Neurosurgical consultation was requested 08/31. Doing well. No focal weakness. No significant headaches Labs, Micro, & Vital Signs Results Date Time Temp Pulse Resp B/P (MAP) Pulse Ox O2 Delivery O2 Flow Rate FiO2 08/31/17 18:00 91 08/31/17 18:00 91 26 132/73 (92) 93 08/31/17 17:00 86 29 128/65 (86) 91 08/31/17 17:00 86 08/31/17 16:30 87 08/31/17 16:00 98.6 87 25 129/63 (85) 90 08/31/17 16:00 87 08/31/17 15:30 86 08/31/17 15:00 85 08/31/17 14:30 85 08/31/17 14:00 85 08/31/17 13:00 84 08/31/17 13:00 84 29 131/71 (91) 90 4/20/18 12:00 86 08/31/17 12:00 98.4 86 27 127/62 (83) 93 08/31/17 11:00 88 31 141/70 (93) 92 08/31/17 10:00 82 08/31/17 10:00 86 29 129/65 (86) 92 08/31/17 09:21 108 19 120/72 (88) 92 08/31/17 09:00 90 26 131/67 (88) 92 08/31/17 08:00 80 08/31/17 08:00 98.6 85 28 135/64 (87) 90 08/31/17 07:53 92 08/31/17 07:00 85 30 133/69 (90) 92 08/31/17 06:00 84 08/31/17 06:00 86 27 133/69 (90) 94 08/31/17 05:00 86 28 133/67 (89) 94 08/31/17 04:00 98.7 85 25 126/66 (86) 95 08/31/17 04:00 85 25 126/66 (86) 95 08/31/17 04:00 89 08/31/17 03:52 96 Nasal Cannula 2.00 08/31/17 03:00 80 25 127/64 (85) 95 08/31/17 02:00 93 28 120/67 (84) 94 08/31/17 02:00 93 28 120/67 (84) 94 08/31/17 02:00 81 08/31/17 01:00 81 36 123/61 (81) 94 08/31/17 00:00 99.0 84 26 115/64 (81) 95 08/31/17 00:00 83 08/30/17 23:00 82 29 133/63 (86) 94 08/30/17 22:00 82 08/30/17 22:00 88 28 129/61 (83) 92 08/30/17 21:00 86 24 125/60 (81) 90 08/30/17 20:00 86 08/30/17 19:38 93 Nasal Cannula 2.00 08/30/17 19:00 87 31 91 08/30/17 19:00 87 09/01/17 07:00 Intake Total 1708 ml Balance 1708 ml Constitutional Vital Signs Date Time Temp Pulse Resp B/P (MAP) Pulse Ox O2 Delivery O2 Flow Rate FiO2 08/31/17 18:00 91 08/31/17 18:00 91 26 132/73 (92) 93 08/31/17 17:00 86 29 128/65 (86) 91 08/31/17 17:00 86 08/31/17 16:30 87 08/31/17 16:00 98.6 87 25 129/63 (85) 90 08/31/17 16:00 87 08/31/17 15:30 86 08/31/17 15:00 85 08/31/17 14:30 85 08/31/17 14:00 85 08/31/17 13:00 84 08/31/17 13:00 84 29 131/71 (91) 90 08/31/17 12:00 86 08/31/17 12:00 98.4 86 27 127/62 (83) 93 08/31/17 11:00 88 31 141/70 (93) 92 08/31/17 10:00 82 08/31/17 10:00 86 29 129/65 (86) 92 08/31/17 09:21 108 19 120/72 (88) 92 08/31/17 09:00 90 26 131/67 (88) 92 08/31/17 08:00 80 08/31/17 08:00 98.6 85 28 135/64 (87) 90 08/31/17 07:53 92 08/31/17 07:00 85 30 133/69 (90) 92 08/31/17 06:00 84 08/31/17 06:00 86 27 133/69 (90) 94 08/31/17 05:00 86 28 133/67 (89) 94 08/31/17 04:00 98.7 85 25 126/66 (86) 95 08/31/17 04:00 85 25 126/66 (86) 95 08/31/17 04:00 89 08/31/17 03:52 96 Nasal Cannula 2.00 08/31/17 03:00 80 25 127/64 (85) 95 08/31/17 02:00 93 28 120/67 (84) 94 08/31/17 02:00 93 28 120/67 (84) 94 08/31/17 02:00 81 08/31/17 01:00 81 36 123/61 (81) 94 08/31/17 00:00 99.0 84 26 115/64 (81) 95 08/31/17 00:00 83 08/30/17 23:00 82 29 133/63 (86) 94 08/30/17 22:00 82 08/30/17 22:00 88 28 129/61 (83) 92 08/30/17 21:00 86 24 125/60 (81) 90 08/30/17 20:00 86 08/30/17 19:38 93 Nasal Cannula 2.00 08/30/17 19:00 87 31 91 08/30/17 19:00 87 09/01/17 07:00 Intake Total 1708 ml Balance 1708 ml Physical Exam Mr Urias is alert, awake and oriented to time, place and person. Speech is fluent. Cranial nerve examination: pupils to be equal, round and reactive to light. Extra-ocular movements are intact. Facial motor and sensory function are normal and symmetrical. Gross hearing appears lost on the left Sternocleidomastoid and trapezius muscles are symmetrical. Other cranial nerves are intact. Neck is soft and supple with a good range of motion without pain. Muscle strength is normal in all muscle groups of both upper and lower extremities. Sensory examination is intact to light touch and pin prick in both the upper and lower extremities. Deep tendon reflexes are symmetrical in both upper and lower extremities. There is a bilateral plantar flexion response. Cerebellar examination is unremarkable, without deficits. Lungs are clear Heart regular rhythm is regular rate Skin warm and dry Medications Current Medications Current Medications Sodium Chloride 1,000 ml @ 125 mls/hr Q8H IV Last administered on 08/29/17at 11 :22; Start 08/29/17 at 11:01; Stop 08/29/17 at 19:00; Status DC Sodium Chloride (NS Flush) 2 ml UNSCH PRN IVF FLUSH AFTER USING IV ACCESS; Start 08/29/17 at 11:15; Stop 08/29/17 at 19:43; Status DC Sodium Chloride 1,000 ml @ 84 mls/hr [id number] IV Last administered on at 15:51; Start 08/29/17 at 16:00 Sodium Chloride (NS Flush) 2 ml UNSCH PRN IV FLUSH FLUSH AFTER USING IV ACCESS ; Start 08/29/17 at 15:45 Sodium Chloride (NS Flush) 2 ml BID IV FLUSH Last administered on 08/31/17at 09: 00; Start 08/29/17 at 21:00 Pantoprazole Sodium (Protonix Inj) 40 mg DAILY IV PUSH Last administered on at 09:24; Start 08/30/17 at 09:00 Ondansetron HCl (Zofran Inj) 4 mg Q6H PRN IV PUSH NAUSEA OR VOMITING; Start at 16:00 Albuterol/ Ipratropium (Duoneb Neb) 1 ampule Q6HR NEB INH Last administered on 08/31/17at 15:25; Start 08/29/17 at 16:00 Albuterol/ Ipratropium (Duoneb Neb) 1 ampule Q2HR NEB PRN INH WHEEZING; Start 08/29/17 at 16:00 Miscellaneous Information 1 [id number] XX ; Start 08/29/17 at 15:45 Chlorhexidine Gluconate (Chlorhexidine 2% Cloth) 3 pack Taper DAILY@04 TOP Last administered on 08/31/17at 04:00; Start 08/30/17 at 04:00; Stop 08/26/18 at 03:59 Chlorhexidine Gluconate (Chlorhexidine 2% Cloth) 3 pack UNSCH PRN TOP HYGIENIC CARE; Start 08/29/17 at 15:45 Senna/Docusate Sodium (Madina-Colace) 1 tab BID PO Last administered on at 09:24; Start 08/29/17 at 21:00 Magnesium Hydroxide (Milk Of Magnesia Liq) 30 ml Q12H PRN PO Mild constipation ; Start 08/29/17 at 16:00 Sennosides (Senokot) 17.2 mg Q12H PRN PO Moderate constipation; Start 08/29/17 at 16:00 Bisacodyl (Dulcolax Supp) 10 mg DAILY PRN RECTAL SEVERE CONSITIPATION; Start at 16:00 Lactulose (Lactulose Liq) 30 ml DAILY PRN PO SEVERE CONSITIPATION; Start at 16:00 Potassium Chloride 100 ml @ 50 mls/hr Q2H PRN IV For Potassium 2.8 - 3.2 mEq/L ; Start 08/29/17 at 16:00 Potassium Chloride 100 ml @ 50 mls/hr Q2H PRN IV For Potassium 2.8 - 3.2 mEq/L ; Start 08/29/17 at 16:00 Potassium Bicarb/ Potassium Chloride (K-Lyte Cl Eff) 50 meq UNSCH PRN PO For Potassium 3.3 - 3.5 mEq/L; Start 08/29/17 at 16:00 Potassium Chloride 100 ml @ 25 mls/hr UNSCH PRN IV For Potassium 3.3 - 3.5 mEq /L; Start 08/29/17 at 16:00 Potassium Chloride 100 ml @ 50 mls/hr Q2H PRN IV For Potassium 3.3 - 3.5 mEq/L ; Start 08/29/17 at 16:00 Magnesium Sulfate 4 gm/Sodium Chloride 100 ml @ 50 mls/hr UNSCH PRN IV For Magnesium 0.9 - 1.1 mg/dL; Start 08/29/17 at 16:00 Magnesium Oxide (Mag-Ox) 800 mg UNSCH PRN PO For Magnesium 1.2 - 1.6 mg/dL; Start 08/29/17 at 16:00 Magnesium Sulfate 2 gm/Sodium Chloride 100 ml @ 50 mls/hr UNSCH PRN IV For Magnesium 1.2 - 1.6 mg/dL; Start 08/29/17 at 16:00 Potassium Phosphate (K-Phos) 2,000 mg Q4H PRN PO For Phosphorus < 2.5 mg/dL; Start 08/29/17 at 16:00 Sodium Phosphate 30 mmol/Sodium Chloride 250 ml @ 42 mls/hr UNSCH PRN IV For Phosphorus < 2.5 mg/dL; Start 08/29/17 at 16:00 Potassium Phosphate (K-Phos) 2,000 mg UNSCH PRN PO/TUBE SEE LABEL COMMENTS; Start 08/29/17 at 16:00 Potassium Phosphate 30 mmol/ Sodium Chloride 260 ml @ 42 mls/hr UNSCH PRN IV SEE LABEL COMMENTS; Start 08/29/17 at 16:00 Fentanyl Citrate (fentaNYL INJ) 50 mcg Q3H PRN IV PUSH PAIN SCALE 7 TO 10 Last administered on 08/31/17at 15:52; Start 08/29/17 at 20:30 Albuterol Sulfate (Proair Hfa Inh) 2 puff Q6H PRN INH SHORTNESS OF BREATH Last administered on 08/30/17at 10:20; Start 08/29/17 at 18:00 Amlodipine Besylate (Norvasc) 10 mg DAILY PO Last administered on 08/31/17at 09: 24; Start 08/30/17 at 09:00 Non-Formulary Medication 1 puff BID INH ; Start 08/29/17 at 21:00; Status UNV Budesonide/ Formoterol Fumarate (Symbicort 160-4.5 Mcg Inh) 2 puff BID INH Last administered on 08/31/17at 09:24; Start 08/29/17 at 21:00 Gadodiamide (Omniscan Pf Inj) 19 ml STK-MED ONCE IVCONTRAST Last administered on 08/30/17at 09:45; Start 08/30/17 at 09:45; Stop 08/30/17 at 09:46; Status DC Ramipril (Altace) 10 mg DAILY PO Last administered on 08/31/17 09:24; Start at 14:00 Midazolam HCl (Versed Inj) 4 mg STK-MED ONCE .ROUTE Last administered on at 16:12; Start 08/30/17 at 16:12; Stop 08/30/17 at 16:13; Status DC Fentanyl Citrate (fentaNYL INJ) 200 mcg STK-MED ONCE IV Last administered on at 16:12; Start 08/30/17 at 16:12; Stop 08/30/17 at 17:24; Status DC Lidocaine HCl (Xylocaine 1% Inj) 10 ml STK-MED ONCE SQ Last administered on at 17:24; Start 08/30/17 at 17:24; Stop 08/30/17 at 17:26; Status DC Attending Statement Consinue neuro checks Continue aggressive platelet transfusion He needs a bone marrow biopsy aggressive pulmonary toilette, nasotracheal suction, and breathing treatments with nebulizers. Thrombocytopenia. Needs workup. Trasfuse aggressively to count of 100K Renal. monitor closely urine output, BUN and creatinine Endocrine. Monitor serial Acu checks and SSI as needed in detail ID monitor for signs of infection Protonix for stress ulcer prophylaxis James gavinoe and SCD's for DVT prophylaxis Chino Cho MD Aug 31, 2017 18:48
[2017-08-31 19:17] LABS: HEMATOCRIT 25.1 % (39.0-51.0); HEMOGLOBIN 9.1 GM/DL (13.0-17.0)
[2017-09-01] VITALS: BP 134/67; PULSE 92; RESP 20; TEMP 97.7; O2SAT 93
[2017-09-01] MEDS: SODIUM CHLOR 0.9% 1000 ML INJ 1,000 ML IV SCH ×2 (03:35→15:09)
[2017-09-01] MEDS: CHLORHEXIDINE GLUCONATE 2 % 1 PACK (2 CLOTHS) TOP SCH (04:00)
[2017-09-01] MEDS: RESP: ALBUTEROL 2.5 MG/IPRATROPIUM 0.5 MG NEB (SCH) INH ×4 (04:07→21:39)
[2017-09-01 08:00] VITALS: BP 123/70; PULSE 80; RESP 19; TEMP 97.7; O2SAT 95
[2017-09-01 08:13] LABS: HEMATOCRIT 23.5 % (39.0-51.0); HEMOGLOBIN 8.4 GM/DL (13.0-17.0)
[2017-09-01] MEDS: PANTOPRAZOLE SODIUM 40 MG VIAL IV PUSH SCH (08:46)
[2017-09-01] MEDS: DOCUSATE SODIUM 50 MG/SENNA 8.6 MG TAB PO SCH ×2 (08:46→20:14)
[2017-09-01] MEDS: RAMIPRIL 5 MG CAP PO SCH (08:46)
[2017-09-01] MEDS: SODIUM CHLORIDE 0.9% FLUSH 10 ML FLUSH IV FLUSH SCH ×2 (08:47→20:14)
[2017-09-01] MEDS: BUDESONIDE-FORMOTEROL 160/4.5 MCG INHALER INH SCH ×2 (08:47→20:14)
--- NOTE | 2017-09-01 11:12 | PD.ONC.PN ---
Subjective Subjective Remarks Afebrile overnight. patient resting in bed with at bedside. "I feel fine." No complaints. They are anxiously waiting on the results of bone marrow biopsy. Objective Data Date Time Temp Pulse Resp B/P (MAP) Pulse Ox O2 Delivery O2 Flow Rate FiO2 09/01/17 08:00 97.7 80 19 123/70 (87) 95 09/01/17 00:00 97.7 92 20 134/67 (89) 93 08/31/17 22:00 91 29 135/69 (91) 92 08/31/17 22:00 99 08/31/17 21:00 91 28 137/63 (87) 90 08/31/17 20:18 93 21 08/31/17 20:00 98.7 86 28 129/65 (86) 91 08/31/17 20:00 89 08/31/17 19:00 90 29 137/68 (91) 91 08/31/17 18:00 91 08/31/17 18:00 91 26 132/73 (92) 93 08/31/17 17:00 86 29 128/65 (86) 91 08/31/17 17:00 86 08/31/17 16:30 87 08/31/17 16:00 98.6 87 25 129/63 (85) 90 08/31/17 16:00 87 08/31/17 15:30 86 08/31/17 15:00 85 08/31/17 14:30 85 08/31/17 14:00 85 08/31/17 13:00 84 08/31/17 13:00 84 29 131/71 (91) 90 08/31/17 12:00 86 08/31/17 12:00 98.4 86 27 127/62 (83) 93 09/01/17 09/01/17 09/01/17 07:00 15:00 23:00 Intake Total 744 ml 120 ml Balance 744 ml 120 ml Result Diagram: 09/01/17 0650 08/31/17 0444 Laboratory Results Laboratory Tests Test 08/31/17 18:39 09/01/17 06:50 Hemoglobin 9.1 GM/DL 8.4 GM/DL Hematocrit 25.1 % 23.5 % Culture Results Microbiology Date/Time Source Procedure Growth Status 08/30/17 11:40 Blood Peripheral Aerobic Blood Culture - Preliminary NO GROWTH IN 2 DAYS Resulted 08/30/17 11:40 Blood Peripheral Anaerobic Blood Culture - Preliminary NO GROWTH IN 2 DAYS Resulted 08/30/17 11:34 Blood Peripheral Aerobic Blood Culture - Preliminary Gram Positive Cocci Resulted 08/30/17 11:34 Blood Peripheral Anaerobic Blood Culture - Preliminary NO GROWTH IN 2 DAYS Resulted Administered Medications Medications (Trade) Dose Ordered Sig/Robert Route PRN Reason Start Time Stop Time Status Last Admin Dose Admin Sodium Chloride 1,000 ml @ 84 mls/hr [id number] IV 08/29/17 16:00 08/31/17 15:51 Sodium Chloride (NS Flush) 2 ml BID IV FLUSH 08/29/17 21:00 08/31/17 20:00 Pantoprazole Sodium (Protonix Inj) 40 mg DAILY IV PUSH 08/30/17 09:00 09/01/17 08:46 Albuterol/ Ipratropium (Duoneb Neb) 1 ampule Q6HR NEB INH 08/29/17 16:00 09/01/17 04:07 Chlorhexidine Gluconate (Chlorhexidine 2% Cloth) 3 pack Taper DAILY@04 TOP 08/30/17 04:00 08/26/18 03:59 08/31/17 04:00 Senna/Docusate Sodium (Madina-Colace) 1 tab BID PO 08/29/17 21:00 08/31/17 09:24 Fentanyl Citrate (fentaNYL INJ) 50 mcg Q3H PRN IV PUSH PAIN SCALE 7 TO 10 08/29/17 20:30 08/31/17 15:52 Albuterol Sulfate (Proair Hfa Inh) 2 puff Q6H PRN INH SHORTNESS OF BREATH 08/29/17 18:00 08/30/17 10:20 Amlodipine Besylate (Norvasc) 10 mg DAILY PO 08/30/17 09:00 09/01/17 08:46 Budesonide/ Formoterol Fumarate (Symbicort 160-4.5 Mcg Inh) 2 puff BID INH 08/29/17 21:00 09/01/17 08:47 Ramipril (Altace) 10 mg DAILY PO 08/30/17 14:00 09/01/17 08:46 Objective Remarks GENERAL: Elderly male, sitting up in bed in nad. SKIN: Warm and dry. HEAD: Normocephalic. EYES: No scleral icterus. No injection or drainage. LYMPH: I do not palpate any cervical, axillary or inguinal adenopathy NECK: Supple, trachea midline. CARDIOVASCULAR: +S1/S2 RESPIRATORY: diminished at bases, anterior bridges clear. GASTROINTESTINAL: Abdomen soft, non-tender, nondistended. EXTREMITIES: No cyanosis NEUROLOGICAL: awake and alert. no obvious focal deficit. Assessment/Plan Problem List: (1) Normocytic anemia ICD Codes: D64.9 - Anemia, unspecified Plan: --s/p bone marrow biopsy, awaiting pathology ++also has bone pain, back pain, elevated LDH, as well as the sweats that suggests a more systemic manifestation of bone marrow disorder. ++ Nucleated red cells seen on peripheral smear. no acute blasts. (2) Thrombocytopenia ICD Codes: D69.6 - Thrombocytopenia, unspecified Status: Acute Assessment 72y/o male with anemia + thrombocytopenia. history of prostate cancer, status post prostatectomy, coronary artery disease, s/p stent placement. history of Muñoz's esophagus Plan 1. 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 I discussed these findings with the patient and his . We discussed that these findings are preliminary and we are waiting on the final result before a diagnosis is made. I expect the final result to return early next week. 2. check CBC, CMP. LDH, uric acid today Laurita Davila Sep 01, 2017 11:12
[2017-09-01 12:00] VITALS: BP 121/61; PULSE 85; RESP 19; TEMP 98.1; O2SAT 95
[2017-09-01] MEDS ORDERED: DIATRIZOATE MEGLUM/DIATRIZOATE SOD 9 ML CUP PO ONE (12:45)
--- NOTE | 2017-09-01 13:07 | HHI.GIFU ---
Subjective Remarks Pt resting in bed, no GI complaints at this time Objective Vitals I&O Vital Signs Date Time Temp Pulse Resp B/P (MAP) Pulse Ox O2 Delivery O2 Flow Rate FiO2 09/01/17 12:00 98.1 85 19 121/61 (81) 95 09/01/17 08:00 97.7 80 19 123/70 (87) 95 09/01/17 00:00 97.7 92 20 134/67 (89) 93 08/31/17 22:00 91 29 135/69 (91) 92 08/31/17 22:00 99 08/31/17 21:00 91 28 137/63 (87) 90 08/31/17 20:18 93 21 08/31/17 20:00 98.7 86 28 129/65 (86) 91 08/31/17 20:00 89 08/31/17 19:00 90 29 137/68 (91) 91 08/31/17 18:00 91 08/31/17 18:00 91 26 132/73 (92) 93 08/31/17 17:00 86 29 128/65 (86) 91 08/31/17 17:00 86 08/31/17 16:30 87 08/31/17 16:00 98.6 87 25 129/63 (85) 90 08/31/17 16:00 87 08/31/17 15:30 86 08/31/17 15:00 85 08/31/17 14:30 85 08/31/17 14:00 85 I/O 08/31/17 08/31/17 08/31/17 09/01/17 09/01/17 09/01/17 07:00 15:00 23:00 07:00 15:00 23:00 Intake Total 900 ml 1708 ml 744 ml 120 ml Output Total 1500 ml Balance -600 ml 1708 ml 744 ml 120 ml Intake Oral 900 ml 720 ml 240 ml 120 ml IV Total 988 ml 504 ml Output Urine Total 1500 ml # Voids 3 2 # Bowel Movements 1 2 Laboratory Laboratory Tests Test 08/31/17 18:39 09/01/17 06:50 Hemoglobin 9.1 8.4 Hematocrit 25.1 23.5 Date/Time Source Procedure Growth Status 08/30/17 11:40 Blood Peripheral Aerobic Blood Culture - Preliminary NO GROWTH IN 2 DAYS Resulted 08/30/17 11:40 Blood Peripheral Anaerobic Blood Culture - Preliminary NO GROWTH IN 2 DAYS Resulted Imaging Last Impressions Bone Biopsy CT 08/30/17 1535 Signed Impressions: Service Date/Time: August 16:19 - CONCLUSION: 1. Uncomplicated CT guided bone marrow aspirate. 2. Uncomplicated CT guided bone marrow biopsy. Srikanth Ambrosio MD Thoracic Spine CT 08/30/17 0100 Signed Impressions: Service Date/Time: August 01:37 - CONCLUSION: 1. No fracture, subluxation or other acute abnormality of the thoracic spine. 2. Scoliosis and mild multifocal degenerative changes as above. 3. Complex appearing cystic structures of the upper poles of both kidneys. Comparison to any previous outside facility studies is recommended to confirm chronicity and stability. Contrast enhanced study of the abdomen suggested if felt clinically indicated, preferably MRI if there are no contraindications. Tim Jones MD Lumbar Spine CT 08/30/17 0100 Signed Impressions: Service Date/Time: August 01:37 - CONCLUSION: 1. No acute fracture or acute subluxation of the lumbar spine. 2. 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 3. Mild spinal and bilateral foraminal stenosis at L4/L5. 4. Mild right and moderate left foraminal stenosis at L5/S1. 5. Benign vertebral body hemangioma of L1. No concerning lumbar spine bone lesion. Tim Jones MD Head CT 08/30/17 0100 Signed Impressions: Service Date/Time: August 01:37 - CONCLUSION: Small frontal maddy-falcine subdural blood is unchanged. Tim Jones MD Carotid Artery Ultrasound 08/30/17 0000 Signed Impressions: Service Date/Time: August 07:52 - CONCLUSION: 1. Diffuse calcified plaque throughout carotid arteries bilaterally with resultant moderate, 50-69%%, stenosis of the internal carotid arteries bilaterally and likely moderate stenosis of the left common carotid artery. 2. Antegrade vertebral artery flow bilaterally. Lopez Taylor MD Brain MRI 08/30/17 0000 Signed Impressions: Service Date/Time: August 09:27 - CONCLUSION: 1. Right frontal parafalcine abnormality on CT exam corresponds to a small meningioma. No definitive intra-or extra-axial hemorrhage. Lopez Taylor MD Physical Exam HEENT: Normocephalic; atraumatic CHEST: Even/unlabored CARDIAC: RRR ABDOMEN: Round, soft, nontender, bowel sounds active EXTREMITIES: No clubbing, cyanosis, or edema. SKIN: Normal; no rash; no jaundice. LAMINATION BUILDER: No focal deficits; alert and oriented times three. Assessment and Plan Plan Assessment: - Anemia- normocytic- on admission H/H was 7.8/23.2 S/P 2 U PRBCs currently 8.6/ 24.3 Pt does report one dark stool, had taken Pepto-Bismol prior. Emesis on day of admission. with similar symptoms and diarrhea, after they both ate Bone-fish grill. Hematology following- bone marrow biopsy done yesterday- results pending. Abs retic-15 Retic count-0.7 Haptoglobin-129 LDH-936 Pt reports last EGD and colonoscopy done 2 years ago - Thrombocytopenia - platelets 5 on admission, now S/P 3 U platelets currently 48 - History of [place] S/P stent placement x 2 in 2003- only on ASA at home- previously on Plavix. - Abnormal imaging- MRI brain --> Right frontal parafalcine abnormality on CT exam corresponds to a small meningioma. No definitive intro or extra-axial hemorrhage. Pt with complaints of dizziness on arrival (09/01) --> Pt with no GI complaints at this time. No repeat CBC from today. Per oncology notes flow cytometry from bone marrow biopsy indicated preliminary findings of CD10 B-cell lymphoma. Still waiting on final result they expect to be back by early next week. Plan EGD and colonoscopy Sunday Clear liquid diet Sunday Magnesium Citrate Prep NPO after MN Sunday Protonix MARILY Bone marrow biopsy pending Hematology following Further recommendations based on clinical course and results of above This patient has been seen and examined by myself and Dr. Bob and this note is written on his behalf Sandra Sin Sep 01, 2017 13:07
[2017-09-01 13:32] LABS: HEMATOCRIT 23.7 % (39.0-51.0); HEMOGLOBIN 8.5 GM/DL (13.0-17.0); MEAN CELL VOLUME 92.2 FL (80.0-100.0); MEAN CORPUSCULAR HGB CONC 35.7 % (32.0-36.0); MEAN PLATELET VOLUME 7.1 FL (7.0-11.0); PLATELET COUNT 29 TH/MM3 (150-450); RED BLOOD COUNT 2.57 MIL/MM3 (4.50-5.90); RED CELL DISTRIBUTION WIDTH 13.9 % (11.6-17.2); WHITE BLOOD COUNT 10.1 TH/MM3 (4.0-11.0)
[2017-09-01 13:51] LABS: AST (GOT) 38 U/L (15-37); BICARBONATE 21.3 MEQ/L (21.0-32.0); BLOOD UREA NITROGEN 23 MG/DL (7-18); CALCIUM 8.9 MG/DL (8.5-10.1); CHLORIDE 108 MEQ/L (98-107); CREATININE 1.05 MG/DL (0.60-1.30); GLUCOSE,RANDOM 87 MG/DL (74-106); MAGNESIUM 1.9 MG/DL (1.5-2.5); SODIUM (NA) 143 MEQ/L (136-145)
[2017-09-01 13:52] LABS: ALT (GPT) 32 U/L (12-78)
[2017-09-01 14:02] LABS: ALKALINE PHOSPHATASE 120 U/L (45-117); PHOSPHORUS 3.2 MG/DL (2.5-4.9); TOTAL PROTEIN 6.1 GM/DL (6.4-8.2)
[2017-09-01 14:45] LABS: BANDS 20 % (0-6); BASOPHILS 3 % (0-2); BLASTS 16 % (0-0); CORRECTED NUCLEATED RBC 5 /100 WBC (0-0); LYMPHOCYTES 17 % (9-44); METAMYELOCYTES 9 % (0-1); MONOCYTES 11 % (0-8); NEUTROPHIL # MANUAL DIFF 5.2 TH/MM3 (1.8-7.7); NUCLEATED RED BLOOD CELL 5 (0-0); PLASMA CELLS 1 % (0-0); POLYS (SEG NEUTROPHILS) 22 % (16-70)
[2017-09-01 15:38] VITALS: O2SAT 95
[2017-09-01 16:00] VITALS: BP 144/67; PULSE 89; RESP 16; TEMP 98.2; O2SAT 95
[2017-09-01] MEDS ORDERED: methylPREDNISolone SOD SUCC 40 MG/1 ML VIAL IV PUSH PRN (16:00)
--- NOTE | 2017-09-01 17:04 | HHI.PR ---
Subjective Remarks Plan for CT of abdomen this afternoon. Bone marrow biopsy results are pending. Hemoglobin shows relative stability. Platelets have a slight decline compared to previous check yesterday. Objective Vital Signs Date Time Temp Pulse Resp B/P (MAP) Pulse Ox O2 Delivery O2 Flow Rate FiO2 09/01/17 15:38 95 21 09/01/17 12:00 98.1 85 19 121/61 (81) 95 09/01/17 08:00 97.7 80 19 123/70 (87) 95 09/01/17 00:00 97.7 92 20 134/67 (89) 93 08/31/17 22:00 91 29 135/69 (91) 92 08/31/17 22:00 99 08/31/17 21:00 91 28 137/63 (87) 90 08/31/17 20:18 93 21 08/31/17 20:00 98.7 86 28 129/65 (86) 91 08/31/17 20:00 89 08/31/17 19:00 90 29 137/68 (91) 91 08/31/17 18:00 91 08/31/17 18:00 91 26 132/73 (92) 93 08/31/17 17:00 86 29 128/65 (86) 91 08/31/17 17:00 86 I/O 08/31/17 08/31/17 08/31/17 09/01/17 09/01/17 09/01/17 07:00 15:00 23:00 07:00 15:00 23:00 Intake Total 900 ml 1708 ml 744 ml 120 ml Output Total 1500 ml Balance -600 ml 1708 ml 744 ml 120 ml Intake Oral 900 ml 720 ml 240 ml 120 ml IV Total 988 ml 504 ml Output Urine Total 1500 ml # Voids 3 2 # Bowel Movements 1 2 Result Diagram: 09/01/17 1224 09/01/17 1224 Objective Remarks GENERAL: NAD, A&Ox3 HEAD: Normocephalic. NECK: Supple, trachea midline. No lymphadenopathy. EYES: No scleral icterus. No injection or drainage. CARDIOVASCULAR: Regular rate and rhythm without murmurs, gallops, or rubs. RESPIRATORY: Breath sounds equal bilaterally. No accessory muscle use. GASTROINTESTINAL: Abdomen soft, non-tender, nondistended. MUSCULOSKELETAL: No cyanosis, or edema. SKIN: Warm and dry. NEURO: No focal neurological deficitis. A/P Problem List: (1) Normocytic anemia ICD Code: D64.9 - Anemia, unspecified (2) History of [place] (myocardial infarction) ICD Code: I25.2 - Old myocardial infarction (3) BMI 30.0-30.9,adult ICD Code: Z68.30 - Body mass index (BMI) 30.0-30.9, adult Status: Chronic (4) Asthma ICD Code: J45.909 - Unspecified asthma, uncomplicated Status: Chronic (5) Thrombocytopenia ICD Code: D69.6 - Thrombocytopenia, unspecified Status: Acute (6) Anemia ICD Code: D64.9 - Anemia, unspecified Status: Acute (7) GI bleed ICD Code: K92.2 - Gastrointestinal hemorrhage, unspecified Status: Acute Assessment and Plan 72-year-old male admitted secondary to GI bleed and thrombocytopenia with anemia. GI bleed Acute blood loss anemia Thrombocytopenia Muñoz's esophagus Transfused 2 units of packed red blood cells, and one 6 pack of platelets from until 08/30/2017 Follow CBC Follow platelets Transfusions as needed Follow results of bone marrow biopsy Gastroenterology following Subdural bleed 1 cm stable findings through time Follow clinically Back pain Continue as needed pain treatments Asthma Scheduled duo nebs As needed breathing treatments Oxygen as needed Incentive spirometry History of [place]- S/P stent placement 2 (2003) Coronary artery disease Hypertension No chest pain Continue Norvasc Continue ramipril Continue labetalol as needed History of prostate cancer status post XRT Follow urine output DVT Prophylaxis SCDs Problem Qualifiers (1) Anemia: Qualified Codes: D64.9 - Anemia, unspecified Victoriano Enamorado MD Sep 01, 2017 17:04
[2017-09-01] MEDS ORDERED: IOHEXOL 350 MG/ML 10 ML VIAL (for RAD DIAG) IVCONTRAST ONE (17:09)
--- NOTE | 2017-09-01 17:24 | RADRPT ---
EXAM DATE/TIME: 09/01/2017 16:48 [facility] COMPARISON: No previous studies available for comparison. INDICATIONS : Evaluate for metastases. IV CONTRAST: 92 cc Omnipaque 350 (iohexol) IV ; Cumulative dose for multiple exams. RADIATION DOSE: 18.22 CTDIvol (mGy) ; Combined studies - Thorax/Abdomen/Pelvis MEDICAL HISTORY : Cardiovascular disease. Carcinoma, prostate. SURGICAL HISTORY : Cholecystectomy. ENCOUNTER: Initial ACUITY: 1 day PAIN SCALE: 5/10 LOCATION: Bilateral chest TECHNIQUE: Volumetric scanning of the chest was performed. Using automated exposure control and adjustment of t he mA and/or kV according to patient size, radiation dose was kept as low as reasonably achievable to obtain optimal diagnostic quality images. DICOM format image data is available electronically for review and comparison. Follow-up recommendations for detected pulmonary nodules are based at a minimum on nodule size and pa tient risk factors according to Fleischner Society Guidelines. FINDINGS: No pleural effusion. Trace pericardial fluid. There is no hilar, mediastinal or axillary adenopathy. No lung masses or consolidation are present. There is scattered atelectasis and scarring of the lungs . No definite evidence for metastatic disease. There is a fat containing Bochdalek hernia on the left side posteriorly. Moderate coronary calcificat ions. Previous cholecystectomy. See abdomen CT for findings below the diaphragms. CONCLUSION: 1. No definite evidence for metastatic disease to the thorax. 2. 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 3. Scattered atelectasis and scarring in the lungs. 4. Moderate coronary calcifications. Cory Camarena MD on September 01, 2017 at 17:11 Board Certified Radiologist. This report was verified electronically.
--- NOTE | 2017-09-01 17:25 | RADRPT ---
EXAM DATE/TIME: 09/01/2017 16:48 [facility] COMPARISON: No previous studies available for comparison. INDICATIONS : Abdomen pain. IV CONTRAST: 92 cc Omnipaque 350 (iohexol) IV ; Cumulative dose for multiple exams. ORAL CONTRAST: No oral contrast ingested. RADIATION DOSE: 18.22 CTDIvol (mGy) ; Combined studies - Thorax/Abdomen/Pelvis MEDICAL HISTORY : Cardiovascular disease. Carcinoma, prostate. SURGICAL HISTORY : Cholecystectomy. ENCOUNTER: Initial ACUITY: 1 day PAIN SCALE: 5/10 LOCATION: Bilateral abdomwn. TECHNIQUE: Volumetric scanning of the abdomen and pelvis was performed. Using automated exposure control and ad justment of the mA and/or kV according to patient size, radiation dose was kept as low as reasonably achievable to obtain optimal diagnostic quality images. DICOM format image data is available electro nically for review and comparison. FINDINGS: LOWER LUNGS: The visualized lower lungs are clear. There appears to be some retroperitoneal fat herniating up into the posterior lung bases through the left hemidiaphragm LIVER: Homogeneous density without lesion. There is no dilation of the biliary tree. Patient is status post cholecystectomy. SPLEEN: Normal size without lesion. PANCREAS: Within normal limits. KIDNEYS: Normal in size and shape. There is no mass, stone or hydronephrosis. Lobulated cysts in the upper po les of both kidneys with some benign-appearing calcification on the left ADRENAL GLANDS: Within normal limits. VASCULAR: There is no aortic aneurysm. BOWEL/MESENTERY: Scattered diverticular disease in the colon without diverticulitis. ABDOMINAL WALL: Within normal limits. RETROPERITONEUM: There is no lymphadenopathy. BLADDER: No wall thickening or mass. REPRODUCTIVE: Patient appears to be status post prostatectomy with lateral side wall scott dissection. INGUINAL: There is no lymphadenopathy or hernia. MUSCULOSKELETAL: Within normal limits for patient age. Benign-appearing hemangioma on the left side of the L1 vertebra l body. CONCLUSION: 1. Post surgical changes with findings of cholecystectomy and prostatectomy. 2. Scattered diverticular disease of the colon without diverticulitis. 3. Lobulated cyst in the upper poles of both kidneys with some calcification on the left. 4. Retroperitoneal fat herniates through the left hemidiaphragm into the posterior left lung base. 5. No acute intraperitoneal or pelvic process to explain current clinical symptoms Gavin Lynn MD on September 01, 2017 at 17:08 Board Certified Radiologist. This report was verified electronically.
[2017-09-01 20:00] VITALS: BP 115/59; PULSE 89; RESP 17; TEMP 97.9; O2SAT 94
[2017-09-02] VITALS (15 sets, daily range): BP systolic 105–136; BP diastolic 58–63; PULSE 78–96; RESP 16–20; TEMP 97.1–98.3; O2SAT 91–97
[2017-09-02] MEDS: MORPHINE SULFATE 4 MG/ML INJ IV PUSH PRN (03:39)
[2017-09-02] MEDS: SODIUM CHLOR 0.9% 1000 ML INJ 1,000 ML IV SCH ×3 (03:41→23:20)
[2017-09-02] MEDS: CHLORHEXIDINE GLUCONATE 2 % 1 PACK (2 CLOTHS) TOP SCH ×2 (04:00→23:21)
[2017-09-02] MEDS: RESP: ALBUTEROL 2.5 MG/IPRATROPIUM 0.5 MG NEB (SCH) INH (04:22)
[2017-09-02 07:36] LABS: HEMATOCRIT 22.5 % (39.0-51.0); HEMOGLOBIN 7.9 GM/DL (13.0-17.0); MEAN CORPUSCULAR HEMOGLOBIN 32.3 PG (27.0-34.0); MEAN CORPUSCULAR HGB CONC 35.1 % (32.0-36.0); MEAN PLATELET VOLUME 6.7 FL (7.0-11.0); PLATELET COUNT 22 TH/MM3 (150-450); RED BLOOD COUNT 2.44 MIL/MM3 (4.50-5.90); RED CELL DISTRIBUTION WIDTH 14.1 % (11.6-17.2); WHITE BLOOD COUNT 11.4 TH/MM3 (4.0-11.0)
[2017-09-02 08:02] LABS: ALBUMIN 2.8 GM/DL (3.4-5.0); AST (GOT) 56 U/L (15-37); BICARBONATE 19.3 MEQ/L (21.0-32.0); BLOOD UREA NITROGEN 26 MG/DL (7-18); CALCIUM 8.5 MG/DL (8.5-10.1); CHLORIDE 109 MEQ/L (98-107); CREATININE 0.99 MG/DL (0.60-1.30); GLOMERULAR FILTRATION RATE 74 ML/MIN (>89); GLUCOSE,RANDOM 69 MG/DL (74-106); SODIUM (NA) 145 MEQ/L (136-145)
[2017-09-02 08:06] LABS: ALKALINE PHOSPHATASE 156 U/L (45-117); ALT (GPT) 36 U/L (12-78); TOTAL BILIRUBIN ADULT 1.3 MG/DL (0.2-1.0); TOTAL PROTEIN 5.8 GM/DL (6.4-8.2)
[2017-09-02] MEDS: DOCUSATE SODIUM 50 MG/SENNA 8.6 MG TAB PO SCH ×2 (09:00→20:52)
[2017-09-02] MEDS: RAMIPRIL 5 MG CAP PO SCH (09:02)
[2017-09-02] MEDS: PANTOPRAZOLE SODIUM 40 MG VIAL IV PUSH SCH (09:02)
[2017-09-02] MEDS: SODIUM CHLORIDE 0.9% FLUSH 10 ML FLUSH IV FLUSH SCH ×2 (09:02→20:53)
[2017-09-02] MEDS: BUDESONIDE-FORMOTEROL 160/4.5 MCG INHALER INH SCH ×2 (09:02→20:52)
--- NOTE | 2017-09-02 09:14 | PD.ONC.PN ---
Subjective Subjective Remarks Afebrile overnight. Patient having aches all over. Very eager to get back to [facility]. asking if he can be discharged today or tomorrow. Objective Data Date Time Temp Pulse Resp B/P (MAP) Pulse Ox O2 Delivery O2 Flow Rate FiO2 09/02/17 00:00 97.1 86 17 128/61 (83) 95 09/01/17 20:00 97.9 89 17 115/59 (77) 94 09/01/17 16:00 98.2 89 16 144/67 (92) 95 09/01/17 15:38 95 21 09/01/17 12:00 98.1 85 19 121/61 (81) 95 09/02/17 09/02/17 09/02/17 07:00 15:00 23:00 Intake Total 0 ml Output Total 300 ml Balance -300 ml Result Diagram: 09/02/17 0709 09/02/17 0709 Laboratory Results Laboratory Tests Test 09/01/17 12:24 09/02/17 07:09 White Blood Count 10.1 TH/MM3 11.4 TH/MM3 Red Blood Count 2.57 MIL/MM3 2.44 MIL/MM3 Hemoglobin 8.5 GM/DL 7.9 GM/DL Hematocrit 23.7 % 22.5 % Mean Corpuscular Volume 92.2 FL 92.0 FL Mean Corpuscular Hemoglobin 33.0 PG 32.3 PG Mean Corpuscular Hemoglobin Concent 35.7 % 35.1 % Red Cell Distribution Width 13.9 % 14.1 % Platelet Count 29 TH/MM3 22 TH/MM3 Mean Platelet Volume 7.1 FL 6.7 FL CBC Comment AUTO DIFF AUTO DIFF Differential Total Cells Counted 100 Neutrophils % (Manual) 22 % Band Neutrophils % 20 % Lymphocytes % 17 % Monocytes % 11 % Eosinophils % 1 % Basophils % 3 % Neutrophils # (Manual) 5.2 TH/MM3 Metamyelocytes 9 % Nucleated Red Blood Cells 5 /100 WBC Differential Comment AUTO DIFF CONFIRMED Atypical Lymphocytes % Blastocytes 16 % Plasma Cells 1 % Platelet Estimate LOW Platelet Morphology Comment NORMAL Blood Urea Nitrogen 23 MG/DL 26 MG/DL Creatinine 1.05 MG/DL 0.99 MG/DL Random Glucose 87 MG/DL 69 MG/DL Total Protein 6.1 GM/DL 5.8 GM/DL Albumin 3.0 GM/DL 2.8 GM/DL Calcium Level 8.9 MG/DL 8.5 MG/DL Phosphorus Level 3.2 MG/DL Magnesium Level 1.9 MG/DL Uric Acid 21.1 MG/DL Alkaline Phosphatase 120 U/L 156 U/L Aspartate Amino Transf (AST/SGOT) 38 U/L 56 U/L Alanine Aminotransferase (ALT/SGPT) 32 U/L 36 U/L Lactate Dehydrogenase 1282 U/L Total Bilirubin 1.0 MG/DL 1.3 MG/DL Sodium Level 143 MEQ/L 145 MEQ/L Potassium Level 3.6 MEQ/L 3.8 MEQ/L Chloride Level 108 MEQ/L 109 MEQ/L Carbon Dioxide Level 21.3 MEQ/L 19.3 MEQ/L Anion Gap 14 MEQ/L 17 MEQ/L Estimat Glomerular Filtration Rate 74 ML/MIN Culture Results Microbiology Date/Time Source Procedure Growth Status 08/30/17 11:40 Blood Peripheral Aerobic Blood Culture - Preliminary NO GROWTH IN 2 DAYS Resulted 08/30/17 11:40 Blood Peripheral Anaerobic Blood Culture - Preliminary NO GROWTH IN 2 DAYS Resulted 08/30/17 11:34 Blood Peripheral Aerobic Blood Culture - Preliminary Staph Sp Coagulase Negative Resulted 08/30/17 11:34 Blood Peripheral Anaerobic Blood Culture - Preliminary NO GROWTH IN 2 DAYS Resulted Administered Medications Medications (Trade) Dose Ordered Sig/Robert Route PRN Reason Start Time Stop Time Status Last Admin Dose Admin Sodium Chloride 1,000 ml @ 84 mls/hr [id number] IV 08/29/17 16:00 09/02/17 03:41 Sodium Chloride (NS Flush) 2 ml BID IV FLUSH 08/29/17 21:00 09/02/17 09:02 Pantoprazole Sodium (Protonix Inj) 40 mg DAILY IV PUSH 08/30/17 09:00 09/02/17 09:02 Albuterol/ Ipratropium (Duoneb Neb) 1 ampule Q6HR NEB INH 08/29/17 16:00 09/02/17 04:22 Chlorhexidine Gluconate (Chlorhexidine 2% Cloth) 3 pack Taper DAILY@04 TOP 08/30/17 04:00 08/26/18 03:59 08/31/17 04:00 Senna/Docusate Sodium (Madina-Colace) 1 tab BID PO 08/29/17 21:00 08/31/17 09:24 Albuterol Sulfate (Proair Hfa Inh) 2 puff Q6H PRN INH SHORTNESS OF BREATH 08/29/17 18:00 08/30/17 10:20 Amlodipine Besylate (Norvasc) 10 mg DAILY PO 08/30/17 09:00 09/02/17 09:02 Budesonide/ Formoterol Fumarate (Symbicort 160-4.5 Mcg Inh) 2 puff BID INH 08/29/17 21:00 09/02/17 09:02 Ramipril (Altace) 10 mg DAILY PO 08/30/17 14:00 09/02/17 09:02 Morphine Sulfate (Morphine Inj) 4 mg Q4H PRN IV PUSH Pain 7 to 10 09/01/17 16:00 09/02/17 03:39 Objective Remarks GENERAL: Elderly male, upright in chair next to bed in nad. SKIN: Warm and dry. HEAD: Normocephalic. EYES: No scleral icterus. No injection or drainage. NECK: Supple, trachea midline. CARDIOVASCULAR: +S1/S2 RESPIRATORY: anterior bridges clear. GASTROINTESTINAL: Abdomen soft, non-tender, nondistended. EXTREMITIES: No cyanosis NEUROLOGICAL: awake and alert. normal speech. moving extremities. no obvious focal deficit. 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 awaiting final result ++also has bone pain, back pain, elevated LDH, as well as the sweats that suggests a more systemic manifestation of bone marrow disorder. ++ Nucleated red cells seen on peripheral smear. no acute blasts. CT C/A/P showing no LAD (2) Thrombocytopenia ICD Codes: D69.6 - Thrombocytopenia, unspecified Status: Acute Assessment 72y/o male with anemia + thrombocytopenia. history of prostate cancer, status post prostatectomy, coronary artery disease, s/p stent placement. history of Muñoz's esophagus Plan 1. await final bone marrow biopsy results. 2. monitor CBC, LDH, CMP 3. transfer to oncology floor. Laurita Davila Sep 02, 2017 09:14
[2017-09-02 09:20] LABS: BANDS 15 % (0-6); BASOPHILS 5 % (0-2); BLASTS 32 % (0-0); CORRECTED NUCLEATED RBC 6 /100 WBC (0-0); LYMPHOCYTES 18 % (9-44); METAMYELOCYTES 3 % (0-1); MONOCYTES 6 % (0-8); MYELOCYTES 8 % (0-0); NEUTROPHIL # MANUAL DIFF 4.4 TH/MM3 (1.8-7.7); NUCLEATED RED BLOOD CELL 6 (0-0); POLYS (SEG NEUTROPHILS) 10 % (16-70); PROMYELOCYTES 3 % (0-0)
[2017-09-02] MEDS ORDERED: SODIUM CHLOR 0.9% 250 ML INJ 250 ML IV ONE (12:30)
--- NOTE | 2017-09-02 13:40 | HHI.GIFU ---
Subjective Remarks Pt resting in bed at bedside He is about to be transferred to [address] [place] [id number] Reports diarrhea last night following oral contrast for CT No other GI complaints at this time (Sandra Sin) Objective Vitals I&O Vital Signs Date Time Temp Pulse Resp B/P (MAP) Pulse Ox O2 Delivery O2 Flow Rate FiO2 09/02/17 12:00 98.3 93 16 114/61 (78) 92 09/02/17 08:00 97.9 83 16 124/60 (81) 93 09/02/17 00:00 97.1 86 17 128/61 (83) 95 09/01/17 20:00 97.9 89 17 115/59 (77) 94 09/01/17 16:00 98.2 89 16 144/67 (92) 95 09/01/17 15:38 95 21 I/O 09/01/17 09/01/17 09/01/17 09/02/17 09/02/17 09/02/17 07:00 15:00 23:00 07:00 15:00 23:00 Intake Total 744 ml 120 ml 840 ml 0 ml Output Total 300 ml Balance 744 ml 120 ml 840 ml -300 ml Intake Oral 240 ml 120 ml 840 ml 0 ml IV Total 504 ml Output Urine Total 300 ml # Voids 2 5 # Bowel Movements 3 Laboratory Laboratory Tests Test 09/02/17 07:09 White Blood Count 11.4 Red Blood Count 2.44 Hemoglobin 7.9 Hematocrit 22.5 Mean Corpuscular Volume 92.0 Mean Corpuscular Hemoglobin 32.3 Mean Corpuscular Hemoglobin Concent 35.1 Red Cell Distribution Width 14.1 Platelet Count 22 Mean Platelet Volume 6.7 CBC Comment AUTO DIFF Differential Total Cells Counted 100 Neutrophils % (Manual) 10 Band Neutrophils % 15 Lymphocytes % 18 Monocytes % 6 Basophils % 5 Neutrophils # (Manual) 4.4 Metamyelocytes 3 Myelocytes 8 Promyelocytes 3 Nucleated Red Blood Cells 6 Differential Comment FINAL DIFF MANUAL Blastocytes 32 Platelet Estimate LOW Platelet Morphology Comment NORMAL Blood Urea Nitrogen 26 Creatinine 0.99 Random Glucose 69 Total Protein 5.8 Albumin 2.8 Calcium Level 8.5 Alkaline Phosphatase 156 Aspartate Amino Transf (AST/SGOT) 56 Alanine Aminotransferase (ALT/SGPT) 36 Total Bilirubin 1.3 Sodium Level 145 Potassium Level 3.8 Chloride Level 109 Carbon Dioxide Level 19.3 Anion Gap 17 Estimat Glomerular Filtration Rate 74 Date/Time Source Procedure Growth Status 08/30/17 11:40 Blood Peripheral Aerobic Blood Culture - Preliminary NO GROWTH IN 3 DAYS Resulted 08/30/17 11:40 Blood Peripheral Anaerobic Blood Culture - Preliminary NO GROWTH IN 3 DAYS Resulted Imaging Last Impressions Chest CT 09/01/17 0000 Signed Impressions: Service Date/Time: Friday, September 01, 2017 16:48 - CONCLUSION: 1. No definite evidence for metastatic disease to the thorax. 2. 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 3. Scattered atelectasis and scarring in the lungs. 4. Moderate coronary calcifications. Cory Camarena MD Abdomen/Pelvis CT 09/01/17 0000 Signed Impressions: Service Date/Time: Friday, September 01, 2017 16:48 - CONCLUSION: 1. Post surgical changes with findings of cholecystectomy and prostatectomy. 2. Scattered diverticular disease of the colon without diverticulitis. 3. Lobulated cyst in the upper poles of both kidneys with some calcification on the left. 4. Retroperitoneal fat herniates through the left hemidiaphragm into the posterior left lung base. 5. No acute intraperitoneal or pelvic process to explain current clinical symptoms Gavin Lynn MD Bone Biopsy CT 08/30/17 1535 Signed Impressions: Service Date/Time: August 16:19 - CONCLUSION: 1. Uncomplicated CT guided bone marrow aspirate. 2. Uncomplicated CT guided bone marrow biopsy. Srikanth Ambrosio MD Thoracic Spine CT 08/30/17 0100 Signed Impressions: Service Date/Time: August 01:37 - CONCLUSION: 1. No fracture, subluxation or other acute abnormality of the thoracic spine. 2. Scoliosis and mild multifocal degenerative changes as above. 3. Complex appearing cystic structures of the upper poles of both kidneys. Comparison to any previous outside facility studies is recommended to confirm chronicity and stability. Contrast enhanced study of the abdomen suggested if felt clinically indicated, preferably MRI if there are no contraindications. Tim Jones MD Lumbar Spine CT 08/30/17 0100 Signed Impressions: Service Date/Time: August 01:37 - CONCLUSION: 1. No acute fracture or acute subluxation of the lumbar spine. 2. 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 3. Mild spinal and bilateral foraminal stenosis at L4/L5. 4. Mild right and moderate left foraminal stenosis at L5/S1. 5. Benign vertebral body hemangioma of L1. No concerning lumbar spine bone lesion. Tim Jones MD Head CT 08/30/17 0100 Signed Impressions: Service Date/Time: August 01:37 - CONCLUSION: Small frontal maddy-falcine subdural blood is unchanged. Tim Jones MD Carotid Artery Ultrasound 08/30/17 0000 Signed Impressions: Service Date/Time: August 07:52 - CONCLUSION: 1. Diffuse calcified plaque throughout carotid arteries bilaterally with resultant moderate, 50-69%%, stenosis of the internal carotid arteries bilaterally and likely moderate stenosis of the left common carotid artery. 2. Antegrade vertebral artery flow bilaterally. Lopez Taylor MD Brain MRI 08/30/17 0000 Signed Impressions: Service Date/Time: August 09:27 - CONCLUSION: 1. Right frontal parafalcine abnormality on CT exam corresponds to a small meningioma. No definitive intra-or extra-axial hemorrhage. Lopez Taylor MD Physical Exam HEENT: Normocephalic; atraumatic CHEST: Even/unlabored CARDIAC: RRR ABDOMEN: Round, soft, nontender, bowel sounds active EXTREMITIES: No clubbing, cyanosis, or edema. SKIN: Normal; no rash; no jaundice. INCLUSION SPECIALIST: No focal deficits; alert and oriented times three. (Sandra Sin BUSINESS BANKING REPRESENTATIVE) Assessment and Plan Plan Assessment: - Anemia- normocytic- on admission H/H was 7.8/23.2 S/P 2 U PRBCs currently 8.6/ 24.3 Pt does report one dark stool, had taken Pepto-Bismol prior. Emesis on day of admission. with similar symptoms and diarrhea, after they both ate [employer] grill. Hematology following- bone marrow biopsy done yesterday- results pending. Abs retic-15 Retic count-0.7 Haptoglobin-129 LDH-936 Pt reports last EGD and colonoscopy done 2 years ago - Thrombocytopenia - platelets 5 on admission, now S/P 3 U platelets currently 48 - History of [place] S/P stent placement x 2 in 2004- only on ASA at home- previously on Plavix. - Abnormal imaging- MRI brain --> Right frontal parafalcine abnormality on CT exam corresponds to a small meningioma. No definitive intro or extra-axial hemorrhage. Pt with complaints of dizziness on arrival (09/01) --> Pt with no GI complaints at this time. No repeat CBC from today. Per oncology notes flow cytometry from bone marrow biopsy indicated preliminary findings of CD10 B-cell lymphoma. Still waiting on final result they expect to be back by early next week. (09/02) --> Pt with no GI complaints at this time, did have diarrhea last night following oral contrast for a CT scan. Drop in platelets since 08/31- too low for endoscopic procedures. No obvious GIB, endoscopic procedures are not emergent at this time. Will defer to oncology to determine platelet transfusion and hold on GI procedures at this time. Pt may go back on regular diet. Prep cancelled fro today. CT abdomen and pelvis W IV contrast (09/01) --> Post surgical changes with findings of cholecystectomy and prostatectomy. Scattered diverticular disease of the colon without diverticulitis. Lobulated cyst in the upper poles of both kidneys with some calcification on the left. Retroperitoneal fat herniates through the left hemidiaphragm into the posterior left lung base. No acute intraperitoneal or pelvic process to explain current clinical symptoms. Plan Continue to monitor H/H and platelets Transfusion per oncology No emergent need for endoscopic procedures at this time- unable to do due to thrombocytopenia Protonix MARILY Bone marrow biopsy pending Hematology following Further recommendations based on clinical course and results of above This patient has been seen and examined by myself and Dr. Beauchamp and this note is written on his behalf (Sandra Sin) Physician Comments Patient seen and examined Agree with above Continue with current supportive care Monitor labs (Gordon Beauchamp MD) Sandra Sin Sep 02, 2017 13:40 Gordon Beauchamp MD Sep 03, 2017 00:06
--- NOTE | 2017-09-02 14:51 | HHI.PR ---
Subjective Remarks Platelets have dropped from 29 to 22. Hemoglobin has declined from 8.5 down to 7.9. Patient has a procedure planned for tomorrow. Objective Vital Signs Date Time Temp Pulse Resp B/P (MAP) Pulse Ox O2 Delivery O2 Flow Rate FiO2 09/02/17 14:19 97.8 81 20 105/58 (74) 95 09/02/17 12:00 98.3 93 16 114/61 (78) 92 09/02/17 08:00 97.9 83 16 124/60 (81) 93 09/02/17 00:00 97.1 86 17 128/61 (83) 95 09/01/17 20:00 97.9 89 17 115/59 (77) 94 09/01/17 16:00 98.2 89 16 144/67 (92) 95 09/01/17 15:38 95 21 I/O 09/01/17 09/01/17 09/01/17 09/02/17 09/02/17 09/02/17 07:00 15:00 23:00 07:00 15:00 23:00 Intake Total 744 ml 120 ml 840 ml 0 ml Output Total 300 ml Balance 744 ml 120 ml 840 ml -300 ml Intake Oral 240 ml 120 ml 840 ml 0 ml IV Total 504 ml Output Urine Total 300 ml # Voids 2 5 # Bowel Movements 3 Result Diagram: 09/02/1770809/02/17 0709 Objective Remarks GENERAL: NAD, A&Ox3 HEAD: Normocephalic. NECK: Supple, trachea midline. No lymphadenopathy. EYES: No scleral icterus. No injection or drainage. CARDIOVASCULAR: Regular rate and rhythm without murmurs, gallops, or rubs. RESPIRATORY: Breath sounds equal bilaterally. No accessory muscle use. GASTROINTESTINAL: Abdomen soft, non-tender, nondistended. MUSCULOSKELETAL: No cyanosis, or edema. SKIN: Warm and dry. NEURO: No focal neurological deficitis. A/P Problem List: (1) Normocytic anemia ICD Code: D64.9 - Anemia, unspecified (2) History of [place] (myocardial infarction) ICD Code: I25.2 - Old myocardial infarction (3) BMI 30.0-30.9,adult ICD Code: Z68.30 - Body mass index (BMI) 30.0-30.9, adult Status: Chronic (4) Asthma ICD Code: J45.909 - Unspecified asthma, uncomplicated Status: Chronic (5) Thrombocytopenia ICD Code: D69.6 - Thrombocytopenia, unspecified Status: Acute (6) Anemia ICD Code: D64.9 - Anemia, unspecified Status: Acute (7) GI bleed ICD Code: K92.2 - Gastrointestinal hemorrhage, unspecified Status: Acute Assessment and Plan 72-year-old male admitted secondary to GI bleed and thrombocytopenia with anemia. Labs reviewed. Further decline in thrombocytes and hemoglobin is anticipated. Procedure planned for tomorrow. One unit of packed red blood cells provided today. Continue monitoring CBC. Labs ordered for further monitoring. GI bleed Acute blood loss anemia Thrombocytopenia Muñoz's esophagus Transfused 2 units of packed red blood cells, and one 6 pack of platelets from until 08/30/2017 Transfuse 1 unit packed red blood cells on 09/02/2017 Follow CBC Follow platelets Transfusions as needed Follow results of bone marrow biopsy Gastroenterology following Subdural bleed 1 cm stable findings through time Follow clinically Back pain Continue as needed pain treatments Asthma Scheduled duo nebs As needed breathing treatments Oxygen as needed Incentive spirometry History of [place]- S/P stent placement 2 (2003) Coronary artery disease Hypertension No chest pain Continue Norvasc Continue ramipril Continue labetalol as needed History of prostate cancer status post XRT Follow urine output DVT Prophylaxis SCDs Problem Qualifiers (1) Anemia: Qualified Codes: D64.9 - Anemia, unspecified Victoriano Enamorado MD Sep 02, 2017 14:51
[2017-09-02] MEDS ORDERED: MAGNESIUM CITRATE SOLN 300 ML BTL PO ONE ×2 (16:00→18:00)
[2017-09-03] VITALS (22 sets, daily range): BP systolic 108–137; BP diastolic 48–67; PULSE 78–110; RESP 18–20; TEMP 97.7–98.5; O2SAT 93–96
[2017-09-03] MEDS: MORPHINE SULFATE 4 MG/ML INJ IV PUSH PRN ×2 (00:32→15:57)
[2017-09-03] MEDS: SODIUM CHLORIDE 0.9% FLUSH 10 ML FLUSH IV FLUSH PRN (00:37)
[2017-09-03 06:28] LABS: HEMATOCRIT 23.9 % (39.0-51.0); HEMOGLOBIN 8.6 GM/DL (13.0-17.0); MEAN CELL VOLUME 91.2 FL (80.0-100.0); MEAN CORPUSCULAR HEMOGLOBIN 32.7 PG (27.0-34.0); MEAN CORPUSCULAR HGB CONC 35.8 % (32.0-36.0); MEAN PLATELET VOLUME 6.5 FL (7.0-11.0); RED BLOOD COUNT 2.62 MIL/MM3 (4.50-5.90); WHITE BLOOD COUNT 16.1 TH/MM3 (4.0-11.0)
[2017-09-03 06:37] LABS: PLATELET COUNT 17 TH/MM3 (150-450)
[2017-09-03] MEDS: SODIUM CHLOR 0.9% 1000 ML INJ 1,000 ML IV SCH (06:40)
[2017-09-03 06:52] LABS: ALBUMIN 2.8 GM/DL (3.4-5.0); ALT (GPT) 43 U/L (12-78); AST (GOT) 64 U/L (15-37); BICARBONATE 20.3 MEQ/L (21.0-32.0); BLOOD UREA NITROGEN 26 MG/DL (7-18); CALCIUM 8.9 MG/DL (8.5-10.1); CHLORIDE 111 MEQ/L (98-107); CREATININE 1.06 MG/DL (0.60-1.30); GLUCOSE,RANDOM 76 MG/DL (74-106); SODIUM (NA) 146 MEQ/L (136-145)
[2017-09-03 07:01] LABS: ALKALINE PHOSPHATASE 179 U/L (45-117); TOTAL BILIRUBIN ADULT 1.3 MG/DL (0.2-1.0); TOTAL PROTEIN 5.7 GM/DL (6.4-8.2)
[2017-09-03] MEDS: PANTOPRAZOLE SODIUM 40 MG VIAL IV PUSH SCH (08:30)
[2017-09-03] MEDS: DOCUSATE SODIUM 50 MG/SENNA 8.6 MG TAB PO SCH ×2 (08:30→21:00)
[2017-09-03] MEDS: RAMIPRIL 5 MG CAP PO SCH (08:30)
[2017-09-03 08:37] LABS: BANDS 13 % (0-6); BASOPHILS 2 % (0-2); BLASTS 40 % (0-0); CORRECTED NUCLEATED RBC 7 /100 WBC (0-0); LYMPHOCYTES 14 % (9-44); METAMYELOCYTES 2 % (0-1); MONOCYTES 3 % (0-8); MYELOCYTES 2 % (0-0); NEUTROPHIL # MANUAL DIFF 6.6 TH/MM3 (1.8-7.7); NUCLEATED RED BLOOD CELL 7 (0-0); POLYS (SEG NEUTROPHILS) 24 % (16-70)
[2017-09-03] MEDS: BUDESONIDE-FORMOTEROL 160/4.5 MCG INHALER INH SCH ×2 (09:00→21:43)
[2017-09-03] MEDS: SODIUM CHLORIDE 0.9% FLUSH 10 ML FLUSH IV FLUSH SCH ×2 (09:00→21:00)
--- NOTE | 2017-09-03 12:50 | HHI.GIFU ---
Subjective Remarks Pt resting in bed, at bedside. Had bone marrow bx. No bleeding. (Jocelyn Tan) Objective Vitals I&O Vital Signs Date Time Temp Pulse Resp B/P (MAP) Pulse Ox O2 Delivery O2 Flow Rate FiO2 09/03/17 11:51 98.5 86 18 118/56 (76) 94 09/03/17 08:25 98.2 88 18 128/66 (86) 95 09/03/17 08:00 84 09/03/17 06:07 83 09/03/17 05:02 80 09/03/17 04:14 97.7 80 18 118/65 (82) 93 09/03/17 04:04 79 09/03/17 03:04 81 09/03/17 02:03 81 09/03/17 01:01 81 09/03/17 00:26 98.0 79 20 109/58 (75) 94 09/03/17 00:04 78 09/02/17 23:45 94 09/02/17 23:03 87 09/02/17 22:01 82 09/02/17 21:04 89 09/02/17 20:39 98.2 85 18 129/61 94 09/02/17 20:06 83 09/02/17 19:03 84 09/02/17 17:25 98.0 78 18 118/58 97 09/02/17 17:06 98.2 89 18 136/63 96 09/02/17 16:26 86 09/02/17 14:19 97.8 81 20 105/58 (74) 95 I/O 09/02/17 09/02/17 09/02/17 09/03/17 09/03/17 09/03/17 07:00 15:00 23:00 07:00 15:00 23:00 Intake Total 0 ml 2750 ml 1400 ml 240 ml Output Total 300 ml 250 ml 700 ml 300 ml Balance -300 ml 2500 ml 700 ml -60 ml Intake Oral 0 ml 600 ml 400 ml 240 ml IV Total 1000 ml Packed Cells 400 ml Blood Product IV Normal Saline Flush 1750 ml Output Urine Total 300 ml 250 ml 700 ml 300 ml # Voids 5 # Bowel Movements 2 Laboratory Laboratory Tests Test 09/03/17 05:37 White Blood Count 16.1 Red Blood Count 2.62 Hemoglobin 8.6 Hematocrit 23.9 Mean Corpuscular Volume 91.2 Mean Corpuscular Hemoglobin 32.7 Mean Corpuscular Hemoglobin Concent 35.8 Red Cell Distribution Width 14.0 Platelet Count 17 Mean Platelet Volume 6.5 CBC Comment AUTO DIFF Differential Total Cells Counted 100 Neutrophils % (Manual) 24 Band Neutrophils % 13 Lymphocytes % 14 Monocytes % 3 Basophils % 2 Neutrophils # (Manual) 6.6 Metamyelocytes 2 Myelocytes 2 Nucleated Red Blood Cells 7 Differential Comment FINAL DIFF MANUAL Blastocytes 40 Platelet Estimate RARE Platelet Morphology Comment NORMAL Blood Urea Nitrogen 26 Creatinine 1.06 Random Glucose 76 Total Protein 5.7 Albumin 2.8 Calcium Level 8.9 Uric Acid 21.7 Alkaline Phosphatase 179 Aspartate Amino Transf (AST/SGOT) 64 Alanine Aminotransferase (ALT/SGPT) 43 Lactate Dehydrogenase 1484 Total Bilirubin 1.3 Sodium Level 146 Potassium Level 3.7 Chloride Level 111 Carbon Dioxide Level 20.3 Anion Gap 15 Date/Time Source Procedure Growth Status 08/30/17 11:40 Blood Peripheral Aerobic Blood Culture - Preliminary NO GROWTH IN 4 DAYS Resulted 08/30/17 11:40 Blood Peripheral Anaerobic Blood Culture - Preliminary NO GROWTH IN 4 DAYS Resulted Imaging Last Impressions Chest CT 09/01/17 0000 Signed Impressions: Service Date/Time: Friday, September 01, 2017 16:48 - CONCLUSION: 1. No definite evidence for metastatic disease to the thorax. 2. 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 3. Scattered atelectasis and scarring in the lungs. 4. Moderate coronary calcifications. Cory Camarena MD Abdomen/Pelvis CT 09/01/17 0000 Signed Impressions: Service Date/Time: Friday, September 01, 2017 16:48 - CONCLUSION: 1. Post surgical changes with findings of cholecystectomy and prostatectomy. 2. Scattered diverticular disease of the colon without diverticulitis. 3. Lobulated cyst in the upper poles of both kidneys with some calcification on the left. 4. Retroperitoneal fat herniates through the left hemidiaphragm into the posterior left lung base. 5. No acute intraperitoneal or pelvic process to explain current clinical symptoms Gavin Lynn MD Bone Biopsy CT 08/30/17 1535 Signed Impressions: Service Date/Time: August 16:19 - CONCLUSION: 1. Uncomplicated CT guided bone marrow aspirate. 2. Uncomplicated CT guided bone marrow biopsy. Srikanth Ambrosio MD Thoracic Spine CT 08/30/1799 Signed Impressions: Service Date/Time: August 01:37 - CONCLUSION: 1. No fracture, subluxation or other acute abnormality of the thoracic spine. 2. Scoliosis and mild multifocal degenerative changes as above. 3. Complex appearing cystic structures of the upper poles of both kidneys. Comparison to any previous outside facility studies is recommended to confirm chronicity and stability. Contrast enhanced study of the abdomen suggested if felt clinically indicated, preferably MRI if there are no contraindications. Tim Jones MD Lumbar Spine CT 08/30/1799 Signed Impressions: Service Date/Time: August 01:37 - CONCLUSION: 1. No acute fracture or acute subluxation of the lumbar spine. 2. 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 3. Mild spinal and bilateral foraminal stenosis at L4/L5. 4. Mild right and moderate left foraminal stenosis at L5/S1. 5. Benign vertebral body hemangioma of L1. No concerning lumbar spine bone lesion. Tim Jones MD Head CT 08/30/1799 Signed Impressions: Service Date/Time: August 01:37 - CONCLUSION: Small frontal maddy-falcine subdural blood is unchanged. Tim Jones MD Carotid Artery Ultrasound 08/30/17 0000 Signed Impressions: Service Date/Time: August 07:52 - CONCLUSION: 1. Diffuse calcified plaque throughout carotid arteries bilaterally with resultant moderate, 50-69%%, stenosis of the internal carotid arteries bilaterally and likely moderate stenosis of the left common carotid artery. 2. Antegrade vertebral artery flow bilaterally. Lopez Taylor MD Brain MRI 08/30/17 0000 Signed Impressions: Service Date/Time: August 09:27 - CONCLUSION: 1. Right frontal parafalcine abnormality on CT exam corresponds to a small meningioma. No definitive intra-or extra-axial hemorrhage. Lopez Taylor MD Physical Exam HEENT: Normocephalic; atraumatic CHEST: CTA CARDIAC: RRR ABDOMEN: Round, soft, nontender, bowel sounds active EXTREMITIES: No clubbing, cyanosis, or edema. SKIN: Normal; no rash; no jaundice. [employer]: No focal deficits; alert and oriented times three. (Jocelyn Tan [facility]) Assessment and Plan Plan Assessment: - Anemia- normocytic- on admission H/H was 7.8/23.2 S/P 2 U PRBCs currently 8.6/ 24.3 Pt does report one dark stool, had taken Pepto-Bismol prior. Emesis on day of admission. with similar symptoms and diarrhea, after they both ate Bone-[employer] grill. Hematology following- bone marrow biopsy done yesterday- results pending. Abs retic-15 Retic count-0.7 Haptoglobin-129 LDH-936 Pt reports last EGD and colonoscopy done 2 years ago - Thrombocytopenia - platelets 5 on admission, now S/P 3 U platelets currently 48 - History of [facility] S/P stent placement x 2 in 2003- only on ASA at home- previously on Plavix. - Abnormal imaging- MRI brain --> Right frontal parafalcine abnormality on CT exam corresponds to a small meningioma. No definitive intro or extra-axial hemorrhage. Pt with complaints of dizziness on arrival (09/01) --> Pt with no GI complaints at this time. No repeat CBC from today. Per oncology notes flow cytometry from bone marrow biopsy indicated preliminary findings of CD10 B-cell lymphoma. Still waiting on final result they expect to be back by early next week. (09/02) --> Pt with no GI complaints at this time, did have diarrhea last night following oral contrast for a CT scan. Drop in platelets since 08/31- too low for endoscopic procedures. No obvious GIB, endoscopic procedures are not emergent at this time. Will defer to oncology to determine platelet transfusion and hold on GI procedures at this time. Pt may go back on regular diet. Prep cancelled fro today. CT abdomen and pelvis W IV contrast (09/01) --> Post surgical changes with findings of cholecystectomy and prostatectomy. Scattered diverticular disease of the colon without diverticulitis. Lobulated cyst in the upper poles of both kidneys with some calcification on the left. Retroperitoneal fat herniates through the left hemidiaphragm into the posterior left lung base. No acute intraperitoneal or pelvic process to explain current clinical symptoms. 09/03/17 PLT dropping, 17 today. BM bx pending. no obvious GIB. hgb 8.6 today , received 1 x prbc last night hematology following Plan monitor labs blood products per oncology hold on endoscopic procedures at this time Protonix MARILY await Bone marrow biopsy supportive care This patient has been seen and examined by myself and Dr. Beauchamp and this note is written on his behalf (Jocelyn Tan) Physician Comments patient seen and examined agree with above monitor labs continue present supportive care endoscopy on hold until more stable (Gordon Beauchamp MD) Jocelyn Tan Sep 03, 2017 12:50 Gordon Beauchamp MD Sep 03, 2017 21:09
--- NOTE | 2017-09-03 13:51 | HHI.PR ---
Subjective Remarks The patient states that he wants to go home. c/o neck pain Platelets trending down. Denies melena or hematochezia Objective Vitals Vital Signs Date Time Temp Pulse Resp B/P (MAP) Pulse Ox O2 Delivery O2 Flow Rate FiO2 09/03/17 11:51 98.5 86 18 118/56 (76) 94 09/03/17 08:25 98.2 88 18 128/66 (86) 95 09/03/17 08:00 84 09/03/17 06:07 83 09/03/17 05:02 80 09/03/17 04:14 97.7 80 18 118/65 (82) 93 09/03/17 04:04 79 09/03/17 03:04 81 09/03/17 02:03 81 09/03/17 01:01 81 09/03/17 00:26 98.0 79 20 109/58 (75) 94 09/03/17 00:04 78 09/02/17 23:45 94 09/02/17 23:03 87 09/02/17 22:01 82 09/02/17 21:04 89 09/02/17 20:39 98.2 85 18 129/61 94 09/02/17 20:06 83 09/02/17 19:03 84 09/02/17 17:25 98.0 78 18 118/58 97 09/02/17 17:06 98.2 89 18 136/63 96 09/02/17 16:26 86 09/02/17 14:19 97.8 81 20 105/58 (74) 95 I/O 09/02/17 09/02/17 09/02/17 09/03/17 09/03/17 09/03/17 07:00 15:00 23:00 07:00 15:00 23:00 Intake Total 0 ml 2750 ml 1400 ml 240 ml Output Total 300 ml 250 ml 700 ml 300 ml Balance -300 ml 2500 ml 700 ml -60 ml Intake Oral 0 ml 600 ml 400 ml 240 ml IV Total 1000 ml Packed Cells 400 ml Blood Product IV Normal Saline Flush 1750 ml Output Urine Total 300 ml 250 ml 700 ml 300 ml # Voids 5 # Bowel Movements 2 Result Diagram: 09/03/17 0537 09/03/17 0537 Imaging Last Impressions Chest CT 09/01/17 0000 Signed Impressions: Service Date/Time: Friday, September 01, 2017 16:48 - CONCLUSION: 1. No definite evidence for metastatic disease to the thorax. 2. 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 3. Scattered atelectasis and scarring in the lungs. 4. Moderate coronary calcifications. Cory Camarena MD Abdomen/Pelvis CT 09/01/17 0000 Signed Impressions: Service Date/Time: Friday, September 01, 2017 16:48 - CONCLUSION: 1. Post surgical changes with findings of cholecystectomy and prostatectomy. 2. Scattered diverticular disease of the colon without diverticulitis. 3. Lobulated cyst in the upper poles of both kidneys with some calcification on the left. 4. Retroperitoneal fat herniates through the left hemidiaphragm into the posterior left lung base. 5. No acute intraperitoneal or pelvic process to explain current clinical symptoms Gavin Lynn MD Bone Biopsy CT 08/30/17 1535 Signed Impressions: Service Date/Time: August 16:19 - CONCLUSION: 1. Uncomplicated CT guided bone marrow aspirate. 2. Uncomplicated CT guided bone marrow biopsy. Srikanth Ambrosio MD Thoracic Spine CT 08/30/170 Signed Impressions: Service Date/Time: August 01:37 - CONCLUSION: 1. No fracture, subluxation or other acute abnormality of the thoracic spine. 2. Scoliosis and mild multifocal degenerative changes as above. 3. Complex appearing cystic structures of the upper poles of both kidneys. Comparison to any previous outside facility studies is recommended to confirm chronicity and stability. Contrast enhanced study of the abdomen suggested if felt clinically indicated, preferably MRI if there are no contraindications. Tim Jones MD Lumbar Spine CT 08/30/17 010 Signed Impressions: Service Date/Time: August 01:37 - CONCLUSION: 1. No acute fracture or acute subluxation of the lumbar spine. 2. 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 3. Mild spinal and bilateral foraminal stenosis at L4/L5. 4. Mild right and moderate left foraminal stenosis at L5/S1. 5. Benign vertebral body hemangioma of L1. No concerning lumbar spine bone lesion. Tim Jones MD Head CT 08/30/17 0100 Signed Impressions: Service Date/Time: August 01:37 - CONCLUSION: Small frontal madina-falcine subdural blood is unchanged. Tim Jones MD Carotid Artery Ultrasound 08/30/17 0000 Signed Impressions: Service Date/Time: August 07:52 - CONCLUSION: 1. Diffuse calcified plaque throughout carotid arteries bilaterally with resultant moderate, 50-69%%, stenosis of the internal carotid arteries bilaterally and likely moderate stenosis of the left common carotid artery. 2. Antegrade vertebral artery flow bilaterally. Lopez Taylor MD Brain MRI 08/30/17 0000 Signed Impressions: Service Date/Time: August 09:27 - CONCLUSION: 1. Right frontal parafalcine abnormality on CT exam corresponds to a small meningioma. No definitive intra-or extra-axial hemorrhage. Lopez Taylor MD Objective Remarks GENERAL: NAD, A&Ox3 HEAD: Normocephalic. NECK: Supple, trachea midline. No lymphadenopathy. EYES: No scleral icterus. No injection or drainage. CARDIOVASCULAR: Regular rate and rhythm without murmurs, gallops, or rubs. RESPIRATORY: Breath sounds equal bilaterally. No accessory muscle use. GASTROINTESTINAL: Abdomen soft, non-tender, nondistended. MUSCULOSKELETAL: No cyanosis, or edema. SKIN: Warm and dry. NEURO: No focal neurological deficitis. Procedures Bone marrow biopsy 08/30/2017. Medications and IVs Current Medications Medications (Trade) Dose Ordered Sig/Robert Route Start Time Stop Time Status Last Admin Sodium Chloride 1,000 ml @ 84 mls/hr [id number] IV 08/29/17 16:00 09/03/17 06:40 (NS Flush) 2 ml UNSCH PRN IV FLUSH 08/29/17 15:45 09/03/17 00:37 (NS Flush) 2 ml BID IV FLUSH 08/29/17 21:00 09/02/17 20:53 (Protonix Inj) 40 mg DAILY IV PUSH 08/30/17 09:00 09/03/17 08:30 (Zofran Inj) 4 mg Q6H PRN IV PUSH 08/29/17 16:00 (Duoneb Neb) 1 ampule Q2HR NEB PRN INH 4/18/18 16:00 Miscellaneous Information 1 [id number] XX 08/29/17 15:45 (Chlorhexidine 2% Cloth) 3 pack Taper DAILY@04 TOP 08/30/17 04:00 08/26/18 03:59 08/31/17 04:00 (Chlorhexidine 2% Cloth) 3 pack UNSCH PRN TOP 08/29/17 15:45 (Madina-Colace) 1 tab BID PO 08/29/17 21:00 09/03/17 08:30 (Milk Of Magnesia Liq) 30 ml Q12H PRN PO 08/29/17 16:00 (Senokot) 17.2 mg Q12H PRN PO 08/29/17 16:00 (Dulcolax Supp) 10 mg DAILY PRN RECTAL 08/29/17 16:00 (Lactulose Liq) 30 ml DAILY PRN PO 08/29/17 16:00 (Proair Hfa Inh) 2 puff Q6H PRN INH 08/29/17 18:00 08/30/17 10:20 (Norvasc) 10 mg DAILY PO 08/30/17 09:00 09/03/17 08:30 (Symbicort 160-4.5 Mcg Inh) 2 puff BID INH 08/29/17 21:00 09/02/17 20:52 (Altace) 10 mg DAILY PO 08/30/17 14:00 09/03/17 08:30 (SoluMEDROL INJ) 40 mg ONCE PRN IV PUSH 09/01/17 16:00 09/08/17 15:59 (Morphine Inj) 2 mg Q4H PRN IV PUSH 09/01/17 16:00 (Morphine Inj) 4 mg Q4H PRN IV PUSH 09/01/17 16:00 09/03/17 15:57 A/P Problem List: (1) Anemia ICD Code: D64.9 - Anemia, unspecified Status: Acute Plan: Anemia likely secondary to acute blood loss secondary to thrombocytopenia and ensuing GI bleed. The patient status post infusion of a total of 3 units of packed red blood cells , 2 units of fresh frozen plasma and 3 units of platelets. Continue to monitor CBC, profuse as needed for hemoglobin less than 8 if active bleeding, less than 7 or symptomatic anemia. (2) Thrombocytopenia ICD Code: D69.6 - Thrombocytopenia, unspecified Status: Acute Plan: Suspected secondary to B-cell lymphoma. Platelets trending down, today 17 K. Continue to monitor platelets and transfuse as per hematology recommendations. (3) GI bleed ICD Code: K92.2 - Gastrointestinal hemorrhage, unspecified Status: Acute Plan: GI consulted. There is no obvious GI bleed. Hemoglobin 8.6 today. Received 1 unit of PRBC last night as per hematology. Hold off on endoscopic procedures at this time. (4) Back pain ICD Code: M54.9 - Dorsalgia, unspecified Status: Acute Plan: The patient is status post lumbar and thoracic spine CT. Lumbar spine CT is negative for acute fractures or acute subluxation of the lumbar spine. 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 Mild spinal and bilateral foraminal stenosis at L4/L5. Mild right and moderate left foraminal stenosis at L5-S1. Benign vertebral body hemangioma of the L1. No concerning lumbar spine bone lesions. Thoracic spine CT showed no fracture, subluxation or acute abnormality of the thoracic spine. There is presence of a scoliosis and degenerative changes. It is observed that the patient has complex appearing cystic structures of the upper poles of both kidneys. We will place the patient on oral Kohler and change morphine for breakthrough pain only. (5) History of [place] (myocardial infarction) ICD Code: I25.2 - Old myocardial infarction Plan: The patient is chest pain-free. Hold aspirin secondary to anemia, thrombocytopenia. Continue ramipril. (6) B-cell lymphoma ICD Code: C85.10 - Unspecified B-cell lymphoma, unspecified site Plan: The patient status post bone marrow biopsy, flow cytometry showing CD10 positive B-cell lymphoma. Awaiting final result. There is elevated blood cells. Continue to monitor CBC with differential. (7) Abnormal head CT ICD Code: R93.0 - Abnormal findings on diagnostic imaging of skull and head, not elsewhere classified Plan: The patient is status post CT of the head which showed a small focal region of increased density in the anterior falx concerning for hemorrhage.. Neurosurgery has been consulted. Recommended neuro checks every 1 hour and follow-up head CT. Follow-up head CT showed a small frontal perifalcine subdural blood which is unchanged. (8) Hearing loss ICD Code: H91.90 - Unspecified hearing loss, unspecified ear Plan: Recent loss of hearing in the left ear. This is associated with dizziness. Suspect possibly patient has Mnire's disease since there is some ringing associated. Consult ENT. (9) Leukocytosis ICD Code: D72.829 - Elevated white blood cell count, unspecified Plan: No active signs of infection. Follow-up hematology recommendations. Possibly secondary to steroid administration that he got on for 09/01. This could also be possibly due to lymphoma. Continue to monitor CBC with differential. Assessment and Plan DVT prophylaxis: SCDs, no chemoprophylaxis given anemia and thrombocytopenia. Discharge Planning Continue to monitor and the oncology floor. Problem Qualifiers (1) Anemia: Qualified Codes: D64.9 - Anemia, unspecified (2) Back pain: Qualified Codes: M54.9 - Dorsalgia, unspecified (3) Hearing loss: Qualified Codes: H91.92 - Unspecified hearing loss, left ear (4) Leukocytosis: Qualified Codes: D72.829 - Elevated white blood cell count, unspecified Sukhwinder Zamudio MD Sep 03, 2017 13:51
[2017-09-03] MEDS ORDERED: ALLOPURINOL 300 MG TAB PO SCH (19:45)
--- NOTE | 2017-09-03 19:52 | PD.ONC.PN ---
Subjective Subjective Remarks Can I go home? Lengthy discussion with pt and his about diagnosis of Burkitt's lymphoma as discussed with pathology. Discussed plans for treatment. Rapid progression. Pt's PCP has labs from 2 months ago completely normal CBC. Objective Data Date Time Temp Pulse Resp B/P (MAP) Pulse Ox O2 Delivery O2 Flow Rate FiO2 09/03/17 19:21 97.9 88 18 108/54 (72) 93 09/03/17 16:01 98.2 87 18 137/67 (90) 94 09/03/17 16:00 82 09/03/17 11:51 98.5 86 18 118/56 (76) 94 09/03/17 08:25 98.2 88 18 128/66 (86) 95 09/03/17 08:00 84 09/03/17 06:07 83 09/03/17 05:02 80 09/03/17 04:14 97.7 80 18 118/65 (82) 93 09/03/17 04:04 79 09/03/17 03:04 81 09/03/17 02:03 81 09/03/17 01:01 81 09/03/17 00:26 98.0 79 20 109/58 (75) 94 09/03/17 00:04 78 09/02/17 23:45 94 09/02/17 23:03 87 09/02/17 22:01 82 09/02/17 21:04 89 09/02/17 20:39 98.2 85 18 129/61 94 09/02/17 20:06 83 09/03/17 09/03/17 09/03/17 06:59 14:59 22:59 Intake Total 1400 ml 240 ml 780 ml Output Total 700 ml 300 ml 1000 ml Balance 700 ml -60 ml -220 ml Result Diagram: 09/03/17 0537 09/03/17 0537 Laboratory Results Laboratory Tests Test 09/03/17 05:37 White Blood Count 16.1 TH/MM3 Red Blood Count 2.62 MIL/MM3 Hemoglobin 8.6 GM/DL Hematocrit 23.9 % Mean Corpuscular Volume 91.2 FL Mean Corpuscular Hemoglobin 32.7 PG Mean Corpuscular Hemoglobin Concent 35.8 % Red Cell Distribution Width 14.0 % Platelet Count 17 TH/MM3 Mean Platelet Volume 6.5 FL CBC Comment AUTO DIFF Differential Total Cells Counted 100 Neutrophils % (Manual) 24 % Band Neutrophils % 13 % Lymphocytes % 14 % Monocytes % 3 % Basophils % 2 % Neutrophils # (Manual) 6.6 TH/MM3 Metamyelocytes 2 % Myelocytes 2 % Nucleated Red Blood Cells 7 /100 WBC Differential Comment FINAL DIFF MANUAL Blastocytes 40 % Platelet Estimate RARE Platelet Morphology Comment NORMAL Blood Urea Nitrogen 26 MG/DL Creatinine 1.06 MG/DL Random Glucose 76 MG/DL Total Protein 5.7 GM/DL Albumin 2.8 GM/DL Calcium Level 8.9 MG/DL Uric Acid 21.7 MG/DL Alkaline Phosphatase 179 U/L Aspartate Amino Transf (AST/SGOT) 64 U/L Alanine Aminotransferase (ALT/SGPT) 43 U/L Lactate Dehydrogenase 1484 U/L Total Bilirubin 1.3 MG/DL Sodium Level 146 MEQ/L Potassium Level 3.7 MEQ/L Chloride Level 111 MEQ/L Carbon Dioxide Level 20.3 MEQ/L Anion Gap 15 MEQ/L Administered Medications Medications (Trade) Dose Ordered Sig/Robert Route PRN Reason Start Time Stop Time Status Last Admin Dose Admin Sodium Chloride 1,000 ml @ 100 mls/hr Q10H IV 08/29/17 16:00 09/03/17 06:40 Sodium Chloride (NS Flush) 2 ml UNSCH PRN IV FLUSH FLUSH AFTER USING IV ACCESS 08/29/17 15:45 09/03/17 00:37 Sodium Chloride (NS Flush) 2 ml BID IV FLUSH 08/29/17 21:00 09/02/17 20:53 Pantoprazole Sodium (Protonix Inj) 40 mg DAILY IV PUSH 08/30/17 09:00 09/03/17 08:30 Chlorhexidine Gluconate (Chlorhexidine 2% Cloth) 3 pack Taper DAILY@04 TOP 08/30/17 04:00 08/26/18 03:59 08/31/17 04:00 Senna/Docusate Sodium (Madina-Colace) 1 tab BID PO 08/29/17 21:00 09/03/17 08:30 Albuterol Sulfate (Proair Hfa Inh) 2 puff Q6H PRN INH SHORTNESS OF BREATH 08/29/17 18:00 08/30/17 10:20 Amlodipine Besylate (Norvasc) 10 mg DAILY PO 08/30/17 09:00 09/03/17 08:30 Budesonide/ Formoterol Fumarate (Symbicort 160-4.5 Mcg Inh) 2 puff BID INH 08/29/17 21:00 09/02/17 20:52 Ramipril (Altace) 10 mg DAILY PO 08/30/17 14:00 09/03/17 08:30 Morphine Sulfate (Morphine Inj) 4 mg Q4H PRN IV PUSH Pain 7 to 10 09/01/17 16:00 09/03/17 15:57 Objective Remarks GENERAL: Well-nourished, well-developed patient. Pallor SKIN: Warm and dry. Occasional bruise. HEAD: Normocephalic. EYES: No scleral icterus. No injection or drainage. NECK: Supple, trachea midline. No JVD or lymphadenopathy. LYMPHATIC: No adenopathy. CARDIOVASCULAR: Regular rate and rhythm without murmurs. RESPIRATORY: Breath sounds equal bilaterally. No accessory muscle use. GASTROINTESTINAL: Abdomen soft, non-tender, nondistended. EXTREMITIES: No cyanosis, or edema. MUSCULOSKELETAL: Adequate muscle tone. NEUROLOGICAL: L hearing loss. 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 awaiting final result ++also has bone pain, back pain, elevated LDH, as well as the sweats that suggests a more systemic manifestation of bone marrow disorder. ++ Nucleated red cells seen on peripheral smear. no acute blasts. 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 Rapid progression of symptoms. WBC increasing. Transfusion dependent on platelets and RBC. Discussed risks and benefits of starting treatment here. Fear that he can't get into an oncology tx center [facility] soon enough , [address] to [place], still needs an oncology appt. Noted his disease is progressing quickly. Discussed risks and benefits of R-EPOCH. Discussed risk of LOOM CHANGER involvement with Burkitt's, check cytology of CSF, tx with IT MTX, follow if need Omaya. Pt and decide to stay for treatment. Consult case management as he will need follow up in [facility] clinic for Neulasta and fu ultimately to oncologist in [place]. Assessment 72y/o male with anemia + thrombocytopenia. history of prostate cancer, status post prostatectomy, coronary artery disease, s/p stent placement. 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 Plan 1. await final bone marrow biopsy results- discussed w/ Dr. Restrepo positive for Burkitt's in BM, no adenopathy 2. monitor for tumor lysis 3. check HIV, Hepatitis panel, uric acid, LDH 4. Start Allopurinol 5. IR consult for LP- cytology, IT MTX, double lumen pic line for chemotherapy R -EPOCH 6. Transfuse platelets in AM prior to LP, consider platelet lean consultant for radiologist 7. Chemo teaching and consent 8. Consult case management to assist pt w/ insurance, needs fu at [facility] clinic, needs fu w/ oncologist [place]. Shahla Duron MD Sep 03, 2017 19:52
[2017-09-04] VITALS (34 sets, daily range): BP systolic 96–148; BP diastolic 51–81; PULSE 75–104; RESP 16–32; TEMP 97.7–100; O2SAT 90–100
[2017-09-04] MEDS: CHLORHEXIDINE GLUCONATE 2 % 1 PACK (2 CLOTHS) TOP SCH (01:09)
[2017-09-04] MEDS: SODIUM CHLOR 0.9% 1000 ML INJ 1,000 ML IV SCH ×3 (01:38→19:31)
[2017-09-04] MEDS: MORPHINE SULFATE 4 MG/ML INJ IV PUSH PRN ×2 (03:33→22:55)
[2017-09-04] MEDS ORDERED: SODIUM CHLOR 0.9% 250 ML INJ 250 ML IV ONE ×2 (05:00→12:45)
[2017-09-04] MEDS: RAMIPRIL 5 MG CAP PO SCH (08:27)
[2017-09-04] MEDS: PANTOPRAZOLE SODIUM 40 MG VIAL IV PUSH SCH (08:27)
[2017-09-04] MEDS: SODIUM CHLORIDE 0.9% FLUSH 10 ML FLUSH IV FLUSH SCH ×2 (08:27→20:59)
[2017-09-04] MEDS: DOCUSATE SODIUM 50 MG/SENNA 8.6 MG TAB PO SCH ×2 (09:00→20:58)
--- NOTE | 2017-09-04 09:18 | PD.ONC.PN ---
Subjective Subjective Remarks Afebrile overnight. Patient nervous about getting chemotherapy, having lumbar puncture today. Has a dry mouth as he is NPO for procedures today. Otherwise without complaints. Objective Data Date Time Temp Pulse Resp B/P (MAP) Pulse Ox O2 Delivery O2 Flow Rate FiO2 09/04/17 08:20 97.9 89 20 132/68 (89) 92 09/04/17 06:36 97.7 86 18 123/59 92 09/04/17 06:03 82 09/04/17 05:49 98.0 84 18 115/81 92 09/04/17 05:20 98.1 86 18 127/63 91 09/04/17 05:01 83 09/04/17 04:08 83 09/04/17 04:00 16 09/04/17 03:42 98.2 81 18 128/58 (81) 93 09/04/17 03:07 87 09/04/17 02:03 86 09/04/17 01:03 86 09/04/17 00:45 98.0 82 18 127/62 (83) 93 09/04/17 00:00 84 09/03/17 23:08 84 09/03/17 22:07 83 09/03/17 21:03 85 09/03/17 20:01 84 09/03/17 19:21 97.9 88 18 108/54 (72) 93 09/03/17 19:02 88 09/03/17 16:01 98.2 87 18 137/67 (90) 94 09/03/17 16:00 82 09/03/17 11:51 98.5 86 18 118/56 (76) 94 09/04/17 09/04/17 09/04/17 07:00 15:00 23:00 Intake Total 1520 ml Output Total 800 ml Balance 720 ml Result Diagram: 09/03/17 0537 09/03/17 0537 Laboratory Results Laboratory Tests Test 09/03/17 21:39 Haptoglobin 85 MG/DL Fibrinogen 196 mg/dL Administered Medications Medications (Trade) Dose Ordered Sig/Robert Route PRN Reason Start Time Stop Time Status Last Admin Dose Admin Sodium Chloride 1,000 ml @ 100 mls/hr Q10H IV 08/29/17 16:00 09/04/17 03:38 Sodium Chloride (NS Flush) 2 ml UNSCH PRN IV FLUSH FLUSH AFTER USING IV ACCESS 08/29/17 15:45 09/03/17 00:37 Sodium Chloride (NS Flush) 2 ml BID IV FLUSH 08/29/17 21:00 09/04/17 08:27 Pantoprazole Sodium (Protonix Inj) 40 mg DAILY IV PUSH 08/30/17 09:00 09/04/17 08:27 Chlorhexidine Gluconate (Chlorhexidine 2% Cloth) Taper DAILY@04 TOP 08/30/17 04:00 08/26/18 03:59 08/31/17 04:00 Senna/Docusate Sodium (Madina-Colace) 1 tab BID PO 08/29/17 21:00 09/03/17 08:30 Albuterol Sulfate (Proair Hfa Inh) 2 puff Q6H PRN INH SHORTNESS OF BREATH 08/29/17 18:00 08/30/17 10:20 Amlodipine Besylate (Norvasc) 10 mg DAILY PO 08/30/17 09:00 09/04/17 08:27 Budesonide/ Formoterol Fumarate (Symbicort 160-4.5 Mcg Inh) 2 puff BID INH 08/29/17 21:00 09/03/17 21:43 Ramipril (Altace) 10 mg DAILY PO 08/30/17 14:00 09/04/17 08:27 Morphine Sulfate (Morphine Inj) 4 mg Q4H PRN IV PUSH Pain 7 to 10 09/01/17 16:00 09/04/17 03:33 Allopurinol (Zyloprim) 300 mg DAILY PO 09/03/17 19:45 09/03/17 21:43 Sodium Chloride 250 ml @ 15 mls/hr ONCE ONCE IV 09/04/17 05:00 09/04/17 21:39 09/04/17 05:00 Objective Remarks GENERAL: Elderly male, sitting up in bed. SKIN: Warm and dry. HEAD: Normocephalic. EYES: No injection or drainage. NECK: Supple, trachea midline. CARDIOVASCULAR: Regular rate and rhythm RESPIRATORY: Breath sounds equal bilaterally. No accessory muscle use. GASTROINTESTINAL: Abdomen soft, non-tender, nondistended. EXTREMITIES: No cyanosis NEUROLOGICAL: awake and alert. normal speech. moving all extremities. 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 awaiting final result ++also has bone pain, back pain, elevated LDH, as well as the sweats that suggests a more systemic manifestation of bone marrow disorder. ++ Nucleated red cells seen on peripheral smear. no acute blasts. 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 Rapid progression of symptoms. WBC increasing. Transfusion dependent on platelets and RBC. Discussed risks and benefits of starting treatment here. Fear that he can't get into an oncology tx center [facility] soon enough , [address] [place], still needs an oncology appt. Noted his disease is progressing quickly. Discussed risks and benefits of R-EPOCH. Discussed risk of INVESTIGATION DIVISION CAPTAIN involvement with Burkitt's, check cytology of CSF, tx with IT MTX, follow if need Omaya. Pt and decide to stay for treatment. Consult case management as he will need follow up in [facility] clinic for Neulasta and fu ultimately to oncologist [place]. 09/04: PICC line placement today, start R-EPOCH, give IT MTX. Assessment 72y/o male with anemia + thrombocytopenia. history of prostate cancer, status post prostatectomy, coronary artery disease, s/p stent placement. 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 Plan 1. check CBC today 2. LP with IT MTX 3. PICC line placement and start R-EPOCH today 4. chemotherapy teaching 5. increase allopurinol to BID Attending Statement The exam, history, and the medical decision-making described in the above note were completed with the assistance of the mid-level provider. I reviewed and agree with the findings presented. I attest that I had a [id number] encounter with the patient on the same day, and personally performed and documented my assessment and findings in the medical record. Discussed plans for LP, IT therapy and chemotherapy after pic line. CAse discussed w/ IR radiologist re: thrombocytopenia. Uric acid elevated, high risk for tumor lysis because of Burkitt's. Start Rasburicase. Chemo teaching. STart chemo today. Continue supportive transfusion. FU appt at oncology for Neulasta set up for Sunday. Laurita Davila Sep 04, 2017 09:18 Shahla Duron MD Sep 04, 2017 21:08
[2017-09-04 10:04] LABS: CALCIUM 8.9 MG/DL (8.5-10.1)
[2017-09-04 10:08] LABS: ALBUMIN 2.9 GM/DL (3.4-5.0); ALT (GPT) 59 U/L (12-78); AST (GOT) 95 U/L (15-37); BICARBONATE 15.2 MEQ/L (21.0-32.0); GLOMERULAR FILTRATION RATE 59 ML/MIN (>89); GLUCOSE,RANDOM 74 MG/DL (74-106)
[2017-09-04 10:10] LABS: CHLORIDE 111 MEQ/L (98-107); SODIUM (NA) 146 MEQ/L (136-145)
[2017-09-04 10:11] LABS: AUTOMATED NEUTROPHIL # 2.7 TH/MM3 (1.8-7.7); BASOPHIL # 0.1 TH/MM3 (0-0.2); BASOPHIL % 0.5 % (0.0-2.0); EOSINOPHIL # 0.3 TH/MM3 (0-0.4); EOSINOPHIL % 1.2 % (0.0-4.0); HEMATOCRIT 22.6 % (39.0-51.0); HEMOGLOBIN 7.9 GM/DL (13.0-17.0); LYMPH % 12.8 % (9.0-44.0); LYMPHOCYTE # 3.1 TH/MM3 (1.0-4.8); MEAN CELL VOLUME 91.7 FL (80.0-100.0); MEAN CORPUSCULAR HGB CONC 34.9 % (32.0-36.0); MEAN PLATELET VOLUME 7.7 FL (7.0-11.0); MONO % 74.4 % (0.0-8.0); MONOCYTE # 17.9 TH/MM3 (0-0.9); NEUT % 11.1 % (16.0-70.0); PLATELET COUNT 31 TH/MM3 (150-450); RED BLOOD COUNT 2.46 MIL/MM3 (4.50-5.90); RED CELL DISTRIBUTION WIDTH 14.4 % (11.6-17.2); WHITE BLOOD COUNT 24.1 TH/MM3 (4.0-11.0)
[2017-09-04 10:16] LABS: ALKALINE PHOSPHATASE 229 U/L (45-117); BLOOD UREA NITROGEN 28 MG/DL (7-18); TOTAL BILIRUBIN ADULT 2.1 MG/DL (0.2-1.0)
--- NOTE | 2017-09-04 10:38 | HHI.GIFU ---
Subjective Remarks Pt resting in bed, receiving chemo teaching. (Jocelyn Tan) Objective Vitals I&O Vital Signs Date Time Temp Pulse Resp B/P (MAP) Pulse Ox O2 Delivery O2 Flow Rate FiO2 09/04/17 08:20 97.9 89 20 132/68 (89) 92 09/04/17 06:36 97.7 86 18 123/59 92 09/04/17 06:03 82 09/04/17 05:49 98.0 84 18 115/81 92 09/04/17 05:20 98.1 86 18 127/63 91 09/04/17 05:01 83 09/04/17 04:08 83 09/04/17 04:00 16 09/04/17 03:42 98.2 81 18 128/58 (81) 93 09/04/17 03:07 87 09/04/17 02:03 86 09/04/17 01:03 86 09/04/17 00:45 98.0 82 18 127/62 (83) 93 09/04/17 00:00 84 09/03/17 23:08 84 09/03/17 22:07 83 09/03/17 21:03 85 09/03/17 20:01 84 09/03/17 19:21 97.9 88 18 108/54 (72) 93 09/03/17 19:02 88 09/03/17 16:01 98.2 87 18 137/67 (90) 94 09/03/17 16:00 82 09/03/17 11:51 98.5 86 18 118/56 (76) 94 I/O 09/03/17 09/03/17 09/03/17 09/04/17 09/04/17 09/04/17 06:59 14:59 22:59 06:59 14:59 22:59 Intake Total 1400 ml 240 ml 780 ml 1520 ml Output Total 700 ml 300 ml 1000 ml 500 ml 300 ml Balance 700 ml -60 ml -220 ml 1020 ml -300 ml Intake Oral 400 ml 240 ml 780 ml 240 ml IV Total 1000 ml 1000 ml Platelets 235 ml Blood Product IV Normal Saline Flush 45 ml Output Urine Total 700 ml 300 ml 1000 ml 500 ml 300 ml # Bowel Movements 1 Laboratory Laboratory Tests Test 09/03/17 21:39 09/04/17 09:14 09/04/17 09:52 Haptoglobin 85 Fibrinogen 196 Blood Urea Nitrogen 28 Creatinine 1.20 Random Glucose 74 Total Protein 6.0 Albumin 2.9 Calcium Level 8.9 Uric Acid 16.9 Alkaline Phosphatase 229 Aspartate Amino Transf (AST/SGOT) 95 Alanine Aminotransferase (ALT/SGPT) 59 Lactate Dehydrogenase 2377 Total Bilirubin 2.1 Sodium Level 146 Potassium Level 3.6 Chloride Level 111 Carbon Dioxide Level 15.2 Anion Gap 20 Estimat Glomerular Filtration Rate 59 White Blood Count 24.1 Red Blood Count 2.46 Hemoglobin 7.9 Hematocrit 22.6 Mean Corpuscular Volume 91.7 Mean Corpuscular Hemoglobin 32.0 Mean Corpuscular Hemoglobin Concent 34.9 Red Cell Distribution Width 14.4 Platelet Count 31 Mean Platelet Volume 7.7 Neutrophils (%) (Auto) 11.1 Lymphocytes (%) (Auto) 12.8 Monocytes (%) (Auto) 74.4 Eosinophils (%) (Auto) 1.2 Basophils (%) (Auto) 0.5 Neutrophils # (Auto) 2.7 Lymphocytes # (Auto) 3.1 Monocytes # (Auto) 17.9 Eosinophils # (Auto) 0.3 Basophils # (Auto) 0.1 CBC Comment AUTO DIFF Date/Time Source Procedure Growth Status 08/30/17 11:40 Blood Peripheral Aerobic Blood Culture - Preliminary NO GROWTH IN 4 DAYS Resulted 08/30/17 11:40 Blood Peripheral Anaerobic Blood Culture - Preliminary NO GROWTH IN 4 DAYS Resulted Imaging Last Impressions Chest CT 09/01/17 0000 Signed Impressions: Service Date/Time: Friday, September 01, 2017 16:48 - CONCLUSION: 1. No definite evidence for metastatic disease to the thorax. 2. 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 3. Scattered atelectasis and scarring in the lungs. 4. Moderate coronary calcifications. Cory Camarena MD Abdomen/Pelvis CT 09/01/17 0000 Signed Impressions: Service Date/Time: Friday, September 01, 2017 16:48 - CONCLUSION: 1. Post surgical changes with findings of cholecystectomy and prostatectomy. 2. Scattered diverticular disease of the colon without diverticulitis. 3. Lobulated cyst in the upper poles of both kidneys with some calcification on the left. 4. Retroperitoneal fat herniates through the left hemidiaphragm into the posterior left lung base. 5. No acute intraperitoneal or pelvic process to explain current clinical symptoms Gavin Lynn MD Bone Biopsy CT 08/30/17 1535 Signed Impressions: Service Date/Time: August 16:19 - CONCLUSION: 1. Uncomplicated CT guided bone marrow aspirate. 2. Uncomplicated CT guided bone marrow biopsy. Srikanth Ambrosio MD Thoracic Spine CT 08/30/17 0100 Signed Impressions: Service Date/Time: August 01:37 - CONCLUSION: 1. No fracture, subluxation or other acute abnormality of the thoracic spine. 2. Scoliosis and mild multifocal degenerative changes as above. 3. Complex appearing cystic structures of the upper poles of both kidneys. Comparison to any previous outside facility studies is recommended to confirm chronicity and stability. Contrast enhanced study of the abdomen suggested if felt clinically indicated, preferably MRI if there are no contraindications. Tim Jones MD Lumbar Spine CT 08/30/17 0100 Signed Impressions: Service Date/Time: August 01:37 - CONCLUSION: 1. No acute fracture or acute subluxation of the lumbar spine. 2. 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 3. Mild spinal and bilateral foraminal stenosis at L4/L5. 4. Mild right and moderate left foraminal stenosis at L5/S1. 5. Benign vertebral body hemangioma of L1. No concerning lumbar spine bone lesion. Tim Jones MD Head CT 08/30/17 0100 Signed Impressions: Service Date/Time: August 01:37 - CONCLUSION: Small frontal maddy-falcine subdural blood is unchanged. Tim Jones MD Carotid Artery Ultrasound 08/30/17 0000 Signed Impressions: Service Date/Time: August 07:52 - CONCLUSION: 1. Diffuse calcified plaque throughout carotid arteries bilaterally with resultant moderate, 50-69%%, stenosis of the internal carotid arteries bilaterally and likely moderate stenosis of the left common carotid artery. 2. Antegrade vertebral artery flow bilaterally. Lopez Taylor MD Brain MRI 08/30/17 0000 Signed Impressions: Service Date/Time: August 09:27 - CONCLUSION: 1. Right frontal parafalcine abnormality on CT exam corresponds to a small meningioma. No definitive intra-or extra-axial hemorrhage. Lopez Taylor MD Physical Exam HEENT: Normocephalic; atraumatic CHEST: CTA CARDIAC: RRR ABDOMEN: Round, soft, nontender, bowel sounds active EXTREMITIES: No clubbing, cyanosis, or edema. SKIN: pale; no rash; no jaundice. MOTOR BUILDER WINDER: No focal deficits; alert and oriented times three. (Jocelyn Tan METALWORKING SPECIALIST) Assessment and Plan Plan Assessment: - Anemia- normocytic- on admission H/H was 7.8/23.2 S/P 2 U PRBCs currently 8.6/ 24.3 Pt does report one dark stool, had taken Pepto-Bismol prior. Emesis on day of admission. with similar symptoms and diarrhea, after they both ate Bone-fish grill. Hematology following- bone marrow biopsy done yesterday- results pending. Abs retic-15 Retic count-0.7 Haptoglobin-129 LDH-936 Pt reports last EGD and colonoscopy done 2 years ago - Thrombocytopenia - platelets 5 on admission, now S/P 3 U platelets currently 48 - History of [place] S/P stent placement x 2 in 2003- only on ASA at home- previously on Plavix. - Abnormal imaging- MRI brain --> Right frontal parafalcine abnormality on CT exam corresponds to a small meningioma. No definitive intro or extra-axial hemorrhage. Pt with complaints of dizziness on arrival (09/01) --> Pt with no GI complaints at this time. No repeat CBC from today. Per oncology notes flow cytometry from bone marrow biopsy indicated preliminary findings of CD10 B-cell lymphoma. Still waiting on final result they expect to be back by early next week. (09/02) --> Pt with no GI complaints at this time, did have diarrhea last night following oral contrast for a CT scan. Drop in platelets since 08/31- too low for endoscopic procedures. No obvious GIB, endoscopic procedures are not emergent at this time. Will defer to oncology to determine platelet transfusion and hold on GI procedures at this time. Pt may go back on regular diet. Prep cancelled fro today. CT abdomen and pelvis W IV contrast (09/01) --> Post surgical changes with findings of cholecystectomy and prostatectomy. Scattered diverticular disease of the colon without diverticulitis. Lobulated cyst in the upper poles of both kidneys with some calcification on the left. Retroperitoneal fat herniates through the left hemidiaphragm into the posterior left lung base. No acute intraperitoneal or pelvic process to explain current clinical symptoms. 09/03/17 PLT dropping, 17 today. BM bx pending. no obvious GIB. hgb 8.6 today , received 1 x prbc last night hematology following 09/04/17 starting chemo for Burkitts. PLT 31 today. hgb dropped to 7.9. bx bonemarrow pending Plan chemo per hem/onc no endoscopic procedures at this time monitor labs blood products per oncology Protonix MARILY await Bone marrow biopsy supportive care f/u with GI after d/c notify GI of active bleeding This patient has been seen and examined by myself and Dr. Beauchamp and this note is written on his behalf (Jocelyn Tan) Physician Comments Patient seen and examined Agree with above Continue with current supportive care Monitor lab Not much to add at this point from a GI perspective we will sign off Reconsult as needed (Gordon Beauchamp MD) Jocelyn Tan Sep 04, 2017 10:38 Gordon Beauchamp MD Sep 04, 2017 18:46
[2017-09-04 11:01] LABS: BANDS 11 % (0-6); BASOPHILS 3 % (0-2); BLASTS 44 % (0-0); CORRECTED NUCLEATED RBC 4 /100 WBC (0-0); LYMPHOCYTES 13 % (9-44); METAMYELOCYTES 5 % (0-1); MONOCYTES 6 % (0-8); MYELOCYTES 1 % (0-0); NEUTROPHIL # MANUAL DIFF 7.5 TH/MM3 (1.8-7.7); NUCLEATED RED BLOOD CELL 4 (0-0); POLYS (SEG NEUTROPHILS) 14 % (16-70)
[2017-09-04] MEDS ORDERED: SODIUM CHLORIDE 0.9% IT ONE ×2 (13:00)
[2017-09-04] MEDS ORDERED: METHOTREXATE IT ONE ×2 (13:00)
[2017-09-04 15:43] LABS: PHOSPHORUS 3.5 MG/DL (2.5-4.9)
[2017-09-04] MEDS ORDERED: EPINEPHrine HCL (1:1000) 1 MG/ML VIAL OTHER PRN (15:45)
[2017-09-04] MEDS ORDERED: diphenhydrAMINE HCL 50 MG/ML VIAL IV PUSH PRN (15:45)
--- NOTE | 2017-09-04 15:49 | PD.RAD ---
Radiology Post PICC Prog Note Pre Procedure Diagnosis: (1) B-cell lymphoma Post Procedure Diagnosis: (1) B-cell lymphoma Procedure: Right PICC line placement Procedure Date: Sep 04, 2017 Supervising Radiologist Santy Burciaga JR Proceduralist/Assist: Lindsay Oliveros, RT(R)(CV), Gris Gutierrez, RT(R) Device Side: Right Mexican: 5 dual lumen cm: 40 Catheter: Power PICC Jr. Gualberto,Santy Schultz MD Sep 04, 2017 15:49
--- NOTE | 2017-09-04 15:53 | PD.RAD ---
Post Procedure Progress Note Pre Procedure Diagnosis: (1) B-cell lymphoma Post Procedure Diagnosis: (1) B-cell lymphoma Procedure Date: Sep 04, 2017 Supervising Radiologist: Santy Burciaga JR Proceduralist/Assist: Lindsay Oliveros, RT(R)(CV), Samantha Disla RT(R) Anesthesia: Local Plan of Activity Patient to Unit: Nursing Unit Patient Condition: Good See PACS Report for procedural detail/treatment Spinal Procedure Lumbar Puncture L4-L5 Fluid Removal (CCs): 7 Fluid Description: Clear, Bloody Puncture Time: 15:07 Findings: Initial access at L4-5 was traumatic. Second access at L3-4 clear CSF. Opening pressure: 26 cmH20 Methotrexate placed intrathecally. Jr. Gualberto,Santy Schultz MD Sep 04, 2017 15:53
[2017-09-04] MEDS ORDERED: SODIUM CHLORIDE 0.9% FLUSH 10 ML FLUSH IVF PRN (16:00)
--- NOTE | 2017-09-04 16:03 | RADRPT ---
EXAM DATE/TIME: 09/04/2017 15:12 [facility] COMPARISON: No previous studies available for comparison. INDICATIONS : Patient presents with Burkitt's lymphoma in need of peripheral intravenous line placement for chemoth erapy treatment. MEDICAL HISTORY : Asthma: Yes Cancer: Yes (PROSTATE) GERD: Yes Hypertension: Yes Influenza Vaccination: Yes ?: Not SURGICAL HISTORY : Cholecystectomy: Yes Coronary Stent: Yes (2) Prostatectomy: Yes (PROSTATE CA) ENCOUNTER: Initial ACUITY: 1 week PAIN SCORE: 0/10 LOCATION: N/A FLUORO TIME: 3.0 minutes IMAGE SERIES: 0 ACCESS: Right basilic vein MEDICATION(S): 1.) 200 units Heparin IV DEVICE(S): 1.) 5 Mexican dual lumen 40 cm Xcela Power PICC PROCEDURE : 1. Ultrasound guidance for venous catheterization. 2. Fluoroscopic guidance. 3. Ultrasound & fluoroscopic guided central venous Power PICC line placement. The risks, benefits and alternatives to the procedure were explained and verbal and written consent w as obtained. The site was prepped in sterile fashion. Full sterile technique was used, including ca p, mask, sterile gloves and gown and a large sterile sheet. Hand hygiene and 2% chlorhexidine prep w as utilized per protocol for cutaneous antisepsis with appropriate dry time for site. Sterile gel a nd sterile probe cover were utilized for ultrasound guidance. The skin and subcutaneous tissues wer e infiltrated with local anesthetic solution. Under direct ultrasound guidance, a suitable vein was accessed and a measuring guidewire was introduc ed and positioned in the central venous system. The ultrasound images depicting access guidance were saved and stored to PACS for permanent record. A Power Injectable PICC line was cut to prescribed length and introduced, positioned with tip at the cavoatrial junction level. The line was flushed and secured per protocol. CONCLUSION: 1. Uncomplicated central venous Power PICC line placement. 2. The PICC line can be used immediately. Santy Burciaga Jr., MD on September 04, 2017 at 15:59 Board Certified Radiologist. This report was verified electronically.
--- NOTE | 2017-09-04 16:04 | RADRPT ---
EXAM DATE/TIME: 09/04/2017 15:12 [facility] COMPARISON: No previous studies available for comparison. 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 MEDICAL HISTORY : Asthma: Yes Cancer: Yes (PROSTATE) GERD: Yes Hypertension: Yes Influenza Vaccination: Yes ?: Not SURGICAL HISTORY : Cholecystectomy: Yes Coronary Stent: Yes (2) Prostatectomy: Yes (PROSTATE CA) ENCOUNTER: Initial ACUITY: 1 week PAIN SCORE: 0/10 LOCATION: N/A LUMBAR PUNCTURE TIME: 15:07 hours FLUORO TIME: 3.0 minutes IMAGE SERIES: 2 ACCESS LEVEL: L4-5, L3-4 OPENING PRESSURE: 26 cm of water CLOSING PRESSURE: Not requested. FLUID: 7 cc of clear CSF was collected and sent to the laboratory for analysis. PROCEDURE : 1. Fluoroscopic guided lumbar puncture. 2. Recording of opening pressure. The risks, benefits and alternatives to the procedure were explained and verbal and written consent w as obtained. The site was prepped in sterile fashion. Full sterile technique was used, including ca p, mask, sterile gloves and gown and a large sterile sheet. Hand hygiene and 2% chlorhexidine and/or betadine/alcohol prep was utilized per protocol for cutaneous antisepsis. The skin and subcutaneous tissues were infiltrated with local anesthetic solution. With fluoroscopic guidance the lumbar thecal sac was punctured at L4-L5. This was a traumatic tap. Th e needle was removed. A second access was performed at L3-L4. Clear CSF fluid noted. Opening pressure s were obtained and were 26 cmH20. The above described fluid was removed without difficulty. Intrathecal methotrexate was instilled. The patient tolerated the procedure well and there were no complications. CONCLUSION: Uncomplicated fluoroscopically guided lumbar puncture with pressures as above. Intrat hecal methotrexate was administered. Santy Burciaga Jr., MD on September 04, 2017 at 15:59 Board Certified Radiologist. This report was verified electronically.
[2017-09-04 16:20] LABS: TOTAL PROTEIN,CSF 57.3 MG/DL (15.0-45.0)
[2017-09-04] MEDS ORDERED: ACETAMINOPHEN 325 MG TAB PO ONE (16:30)
--- NOTE | 2017-09-04 16:33 | HHI.PR ---
Subjective Remarks The patient denies chest pain or shortness of breath. Denies melena, hematochezia or epistaxis. Objective Vitals Vital Signs Date Time Temp Pulse Resp B/P (MAP) Pulse Ox O2 Delivery O2 Flow Rate FiO2 09/04/17 15:25 98.9 100 16 116/63 (80) 100 09/04/17 15:05 98.8 100 16 96/54 (68) 100 09/04/17 14:48 98.9 102 20 115/55 (75) 09/04/17 11:30 98.5 87 20 120/59 (79) 91 09/04/17 08:20 97.9 89 20 132/68 (89) 92 09/04/17 06:36 97.7 86 18 123/59 92 09/04/17 06:03 82 09/04/17 05:49 98.0 84 18 115/81 92 09/04/17 05:20 98.1 86 18 127/63 91 09/04/17 05:01 83 09/04/17 04:08 83 09/04/17 04:00 16 09/04/17 03:42 98.2 81 18 128/58 (81) 93 09/04/17 03:07 87 09/04/17 02:03 86 09/04/17 01:03 86 09/04/17 00:45 98.0 82 18 127/62 (83) 93 09/04/17 00:00 84 09/03/17 23:08 84 09/03/17 22:07 83 09/03/17 21:03 85 09/03/17 20:01 84 09/03/17 19:21 97.9 88 18 108/54 (72) 93 09/03/17 19:02 88 I/O 09/03/17 09/03/17 09/03/17 09/04/17 09/04/17 09/04/17 06:59 14:59 22:59 06:59 14:59 22:59 Intake Total 1400 ml 240 ml 780 ml 1520 ml 10 ml 247 ml Output Total 700 ml 300 ml 1000 ml 500 ml 300 ml Balance 700 ml -60 ml -220 ml 1020 ml -290 ml 247 ml Intake Oral 400 ml 240 ml 780 ml 240 ml IV Total 1000 ml 1000 ml Platelets 235 ml 217 ml Blood Product IV Normal Saline Flush 45 ml 10 ml 30 ml Output Urine Total 700 ml 300 ml 1000 ml 500 ml 300 ml # Bowel Movements 1 Result Diagram: 09/04/17 0952 09/04/17 0914 Imaging Last Impressions PICC Line Insertion 09/04/17 0600 Signed Impressions: Service Date/Time: Monday, September 04, 2017 15:12 - CONCLUSION: 1. Uncomplicated central venous Power PICC line placement. 2. The PICC line can be used immediately. Santy Burciaga Jr., MD Lumbar Puncture Fluoroscopy 09/04/17 0000 Signed Impressions: Service Date/Time: Monday, September 04, 2017 15:12 - CONCLUSION: Uncomplicated fluoroscopically guided lumbar puncture with pressures as above. Intrathecal methotrexate was administered. Santy Burciaga Jr., MD Chest CT 09/01/17 0000 Signed Impressions: Service Date/Time: Friday, September 01, 2017 16:48 - CONCLUSION: 1. No definite evidence for metastatic disease to the thorax. 2. 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 3. Scattered atelectasis and scarring in the lungs. 4. Moderate coronary calcifications. Cory Camarena MD Abdomen/Pelvis CT 09/01/17 0000 Signed Impressions: Service Date/Time: Friday, September 01, 2017 16:48 - CONCLUSION: 1. Post surgical changes with findings of cholecystectomy and prostatectomy. 2. Scattered diverticular disease of the colon without diverticulitis. 3. Lobulated cyst in the upper poles of both kidneys with some calcification on the left. 4. Retroperitoneal fat herniates through the left hemidiaphragm into the posterior left lung base. 5. No acute intraperitoneal or pelvic process to explain current clinical symptoms Gavin Lynn MD Bone Biopsy CT 08/30/17 1535 Signed Impressions: Service Date/Time: August 16:19 - CONCLUSION: 1. Uncomplicated CT guided bone marrow aspirate. 2. Uncomplicated CT guided bone marrow biopsy. Srikanth Ambrosio MD Thoracic Spine CT 08/30/17 0100 Signed Impressions: Service Date/Time: August 01:37 - CONCLUSION: 1. No fracture, subluxation or other acute abnormality of the thoracic spine. 2. Scoliosis and mild multifocal degenerative changes as above. 3. Complex appearing cystic structures of the upper poles of both kidneys. Comparison to any previous outside facility studies is recommended to confirm chronicity and stability. Contrast enhanced study of the abdomen suggested if felt clinically indicated, preferably MRI if there are no contraindications. Tim Jones MD Lumbar Spine CT 08/30/170 Signed Impressions: Service Date/Time: August 01:37 - CONCLUSION: 1. No acute fracture or acute subluxation of the lumbar spine. 2. 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 3. Mild spinal and bilateral foraminal stenosis at L4/L5. 4. Mild right and moderate left foraminal stenosis at L5/S1. 5. Benign vertebral body hemangioma of L1. No concerning lumbar spine bone lesion. Tim Jones MD Head CT 08/30/170 Signed Impressions: Service Date/Time: August 01:37 - CONCLUSION: Small frontal madina-falcine subdural blood is unchanged. Tim Jones MD Carotid Artery Ultrasound 08/30/17 0000 Signed Impressions: Service Date/Time: August 07:52 - CONCLUSION: 1. Diffuse calcified plaque throughout carotid arteries bilaterally with resultant moderate, 50-69%%, stenosis of the internal carotid arteries bilaterally and likely moderate stenosis of the left common carotid artery. 2. Antegrade vertebral artery flow bilaterally. Lopez Taylor MD Brain MRI 08/30/17 0000 Signed Impressions: Service Date/Time: August 09:27 - CONCLUSION: 1. Right frontal parafalcine abnormality on CT exam corresponds to a small meningioma. No definitive intra-or extra-axial hemorrhage. Lopez Taylor MD Objective Remarks GENERAL: NAD, A&Ox3 HEAD: Normocephalic. NECK: Supple, trachea midline. No lymphadenopathy. EYES: No scleral icterus. No injection or drainage. CARDIOVASCULAR: Regular rate and rhythm without murmurs, gallops, or rubs. RESPIRATORY: Breath sounds equal bilaterally. No accessory muscle use. GASTROINTESTINAL: Abdomen soft, non-tender, nondistended. MUSCULOSKELETAL: No cyanosis, or edema. SKIN: Warm and dry. NEURO: No focal neurological deficitis. Procedures Bone marrow biopsy 08/30/2017. Medications and IVs Current Medications Medications (Trade) Dose Ordered Sig/Robert Route Start Time Stop Time Status Last Admin Sodium Chloride 1,000 ml @ 100 mls/hr Q10H IV 08/29/17 16:00 09/04/17 03:38 (NS Flush) 2 ml UNSCH PRN IV FLUSH 08/29/17 15:45 09/03/17 00:37 (NS Flush) 2 ml BID IV FLUSH 08/29/17 21:00 09/04/17 08:27 (Protonix Inj) 40 mg DAILY IV PUSH 08/30/17 09:00 09/04/17 08:27 (Zofran Inj) 4 mg Q6H PRN IV PUSH 08/29/17 16:00 (Duoneb Neb) 1 ampule Q2HR NEB PRN INH 08/29/17 16:00 Miscellaneous Information 1 Q361D XX 08/29/17 15:45 (Chlorhexidine 2% Cloth) Taper DAILY@04 TOP 08/30/17 04:00 08/26/18 03:59 08/31/17 04:00 (Chlorhexidine 2% Cloth) 3 pack UNSCH PRN TOP 08/29/17 15:45 (Madina-Colace) 1 tab BID PO 08/29/17 21:00 09/03/17 08:30 (Milk Of Magnesia Liq) 30 ml Q12H PRN PO 08/29/17 16:00 (Senokot) 17.2 mg Q12H PRN PO 08/29/17 16:00 (Dulcolax Supp) 10 mg DAILY PRN RECTAL 08/29/17 16:00 (Lactulose Liq) 30 ml DAILY PRN PO 08/29/17 16:00 (Proair Hfa Inh) 2 puff Q6H PRN INH 08/29/17 18:00 08/30/17 10:20 (Norvasc) 10 mg DAILY PO 08/30/17 09:00 09/04/17 08:27 (Symbicort 160-4.5 Mcg Inh) 2 puff BID INH 08/29/17 21:00 09/03/17 21:43 (Altace) 10 mg DAILY PO 08/30/17 14:00 09/04/17 08:27 (SoluMEDROL INJ) 40 mg ONCE PRN IV PUSH 09/01/17 16:00 09/08/17 15:59 (Morphine Inj) 2 mg Q4H PRN IV PUSH 09/01/17 16:00 (Morphine Inj) 4 mg Q4H PRN IV PUSH 09/01/17 16:00 09/04/17 03:33 Sodium Chloride 250 ml @ 15 mls/hr ONCE ONCE IV 09/04/17 05:00 09/04/17 21:39 09/04/17 05:00 Sodium Chloride 250 ml @ 15 mls/hr ONCE ONCE IV 09/04/17 12:45 09/05/17 05:24 (Zyloprim) 300 mg BID PO 09/04/17 21:00 Rituximab 768.75 mg/Sodium Chloride 576.875 ml @ 0 mls/hr Q0M ONCE IV 09/04/17 17:00 09/04/17 17:01 Sodium Chloride 1,000 ml @ 100 mls/hr Q10H IV 09/04/17 17:00 09/04/17 23:59 (Kytril Inj) 1 mg Q24H IV 09/04/17 22:30 09/08/17 22:31 Doxorubicin HCl 20.5 mg/ Vincristine Sulfate 0.82 mg/ Etoposide 102.5 mg/Sodium Chloride 516.195 ml @ 21.508 mls/hr Q24H IV 09/04/17 23:00 09/08/17 22:59 (Benadryl Inj) 50 mg UNSCH PRN IV PUSH 09/04/17 15:45 09/07/17 15:44 (Adrenalin (1:1000) Inj) 0.3 mg Q10M PRN OTHER 09/04/17 15:45 09/07/17 15:44 (Deltasone) 100 mg BID PO 09/04/17 22:30 09/09/17 09:01 (Deltasone) 20 mg BID PO 09/04/17 22:30 09/09/17 09:01 (Deltasone) 3 mg BID PO 09/04/17 22:30 09/09/17 09:01 (Tylenol) 650 mg ONCE ONCE PO 09/04/17 16:30 09/04/17 16:31 Cyclophosphamide 1537.5 mg/Sodium Chloride 250 ml @ 250 mls/hr ONCE ONCE IV 09/08/17 23:00 09/08/17 23:59 (NS Flush) DAILY IVF 09/05/17 09:00 (Heparin Central Flush) DAILY IV FLUSH 09/05/17 09:00 (NS Flush) UNSCH PRN IVF 09/04/17 16:00 (Heparin Central Flush) UNSCH PRN IV FLUSH 09/04/17 16:00 (NS Flush) UNSCH PRN IVF 09/04/17 16:00 A/P Problem List: (1) Anemia ICD Code: D64.9 - Anemia, unspecified Status: Acute Plan: Anemia likely secondary to acute blood loss secondary to thrombocytopenia and ensuing GI bleed. The patient status post infusion of a total of 3 units of packed red blood cells , 2 units of fresh frozen plasma and 3 units of platelets. Continue to monitor CBC, profuse as needed for hemoglobin less than 8 if active bleeding, less than 7 or symptomatic anemia. (2) Thrombocytopenia ICD Code: D69.6 - Thrombocytopenia, unspecified Status: Acute Plan: Suspected secondary to B-cell lymphoma. Platelets trending up, 30 1K today. Transfuse 1 unit of platelets today as per hematology. Continue to monitor platelets and transfuse as per hematology recommendations. (3) GI bleed ICD Code: K92.2 - Gastrointestinal hemorrhage, unspecified Status: Acute Plan: GI consulted. There is no obvious GI bleed. Hemoglobin 8.6 today. Received 1 unit of PRBC last night as per hematology. Hold off on endoscopic procedures at this time. (4) Back pain ICD Code: M54.9 - Dorsalgia, unspecified Status: Acute Plan: The patient is status post lumbar and thoracic spine CT. Lumbar spine CT is negative for acute fractures or acute subluxation of the lumbar spine. 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 Mild spinal and bilateral foraminal stenosis at L4/L5. Mild right and moderate left foraminal stenosis at L5-S1. Benign vertebral body hemangioma of the L1. No concerning lumbar spine bone lesions. Thoracic spine CT showed no fracture, subluxation or acute abnormality of the thoracic spine. There is presence of a scoliosis and degenerative changes. It is observed that the patient has complex appearing cystic structures of the upper poles of both kidneys. Continue oral [place] and change morphine for breakthrough pain only. (5) History of MO (myocardial infarction) ICD Code: I25.2 - Old myocardial infarction Plan: The patient is chest pain-free. Hold aspirin secondary to anemia, thrombocytopenia. Continue ramipril. 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 Patient for LP with IT methotrexate. PICC line placement to start REPOCH today. Allopurinol increased to twice daily to prevent tumor lysis syndrome. (7) Abnormal head CT ICD Code: R93.0 - Abnormal findings on diagnostic imaging of skull and head, not elsewhere classified Plan: The patient is status post CT of the head which showed a small focal region of increased density in the anterior falx concerning for hemorrhage.. Neurosurgery has been consulted. Recommended neuro checks every 1 hour and follow-up head CT. Follow-up head CT showed a small frontal perifalcine subdural blood which is unchanged. (8) Hearing loss ICD Code: H91.90 - Unspecified hearing loss, unspecified ear Plan: Recent loss of hearing in the left ear. This is associated with dizziness. Suspect possibly patient has Mnire's disease since there is some ringing associated. Consult ENT. (9) Leukocytosis ICD Code: D72.829 - Elevated white blood cell count, unspecified Plan: No active signs of infection. Follow-up hematology recommendations. Possibly secondary to steroid administration that he got on for 09/01. This could also be possibly due to lymphoma. Continue to monitor CBC with differential. Assessment and Plan DVT prophylaxis: SCDs, no chemoprophylaxis given anemia and thrombocytopenia. Discharge Planning Continue to monitor and the oncology floor. Problem Qualifiers (1) Anemia: Qualified Codes: D64.9 - Anemia, unspecified (2) Back pain: Qualified Codes: M54.9 - Dorsalgia, unspecified (3) Hearing loss: Qualified Codes: H91.92 - Unspecified hearing loss, left ear (4) Leukocytosis: Qualified Codes: D72.829 - Elevated white blood cell count, unspecified Sukhwinder Zamudio MD Sep 04, 2017 16:33
[2017-09-04] MEDS ORDERED: SODIUM CHLORID 0.9% IV ONE (17:00)
[2017-09-04] MEDS ORDERED: SODIUM CHLOR 0.9% 1000 ML INJ 1,000 ML IV SCH (17:00)
[2017-09-04] MEDS ORDERED: RITUXIMAB IV ONE (17:00)
[2017-09-04 17:04] LABS: SUPERNATE COLOR TUBE #1 CLEAR (CLEAR)
[2017-09-04 17:05] LABS: RBC TUBE #1 1553 /MM3; WBC TUBE #1 296 /MM3 (0-10)
[2017-09-04 17:06] LABS: CSF LYMPHOCYTES 14 %; CSF NEUTROPHILS 2 %; CSF PLASMA CELLS 1 %; OTHER CELLS (CSF) 83 %
[2017-09-04] MEDS ORDERED: RASBURICASE INJ 7.5 MG in SODIUM CHLORIDE 0.9% INJ 50 ML IV ONE (18:00)
[2017-09-04] MEDS: BUDESONIDE-FORMOTEROL 160/4.5 MCG INHALER INH SCH (20:55)
[2017-09-04] MEDS: ALLOPURINOL 300 MG TAB PO SCH (20:56)
[2017-09-04] MEDS: SODIUM CHLORIDE 0.9% FLUSH 10 ML FLUSH IVF SCH (22:55)
[2017-09-04] MEDS: ETOPOSIDE IV SCH (23:00)
[2017-09-04] MEDS: VINCRISTINE IV SCH (23:00)
[2017-09-04] MEDS: DOXORUBICIN IV SCH (23:00)
[2017-09-04] MEDS: [UNRECOGNIZED DRUG - OTHER] IV SCH (23:00)
[2017-09-04] MEDS: predniSONE 20 MG TAB PO SCH (23:24)
[2017-09-04] MEDS: predniSONE 1 MG TAB PO SCH (23:24)
[2017-09-04] MEDS: predniSONE 50 MG TAB PO SCH (23:24)
[2017-09-05] VITALS (32 sets, daily range): BP systolic 86–138; BP diastolic 48–74; PULSE 61–98; RESP 18–28; TEMP 96.2–99.5; O2SAT 92–97
--- NOTE | 2017-09-05 02:11 | RADRPT ---
EXAM DATE/TIME: 09/05/2017 01:50 [facility] COMPARISON: No previous studies available for comparison. INDICATIONS : Shortness of breath. MEDICAL HISTORY : Cardiovascular disease. Carcinoma, prostatic. SURGICAL HISTORY : None. ENCOUNTER: Initial ACUITY: 1 day PAIN SCORE: 0/10 LOCATION: Bilateral chest FINDINGS: Right PICC line tip in superior vena cava. Subsegmental basilar air space disease in the lungs. Cardi omegaly. Mildly tortuous aorta. No pneumothorax. CONCLUSION: 1. Right PICC line in superior vena cava. Subsegmental basilar airspace disease. No effusion or pneum othorax. Cory Camarena MD on September 05, 2017 at 2:07 Board Certified Radiologist. This report was verified electronically.
[2017-09-05] MEDS: CHLORHEXIDINE GLUCONATE 2 % 1 PACK (2 CLOTHS) TOP SCH (02:19)
[2017-09-05 05:35] LABS: HEMOGLOBIN 7.2 GM/DL (13.0-17.0); MEAN CELL VOLUME 93.5 FL (80.0-100.0); MEAN CORPUSCULAR HEMOGLOBIN 32.6 PG (27.0-34.0); MEAN CORPUSCULAR HGB CONC 34.9 % (32.0-36.0); MEAN PLATELET VOLUME 8.7 FL (7.0-11.0); PLATELET COUNT 27 TH/MM3 (150-450); RED BLOOD COUNT 2.22 MIL/MM3 (4.50-5.90); RED CELL DISTRIBUTION WIDTH 14.7 % (11.6-17.2); WHITE BLOOD COUNT 7.8 TH/MM3 (4.0-11.0)
[2017-09-05 05:40] LABS: HEMATOCRIT 20.7 % (39.0-51.0)
[2017-09-05] MEDS: SODIUM CHLOR 0.9% 1000 ML INJ 1,000 ML IV SCH ×3 (05:44→22:15)
[2017-09-05 06:16] LABS: ALBUMIN 2.6 GM/DL (3.4-5.0); ALKALINE PHOSPHATASE 206 U/L (45-117); ALT (GPT) 51 U/L (12-78); AST (GOT) 132 U/L (15-37); BICARBONATE 14.5 MEQ/L (21.0-32.0); BLOOD UREA NITROGEN 53 MG/DL (7-18); CALCIUM 8.3 MG/DL (8.5-10.1); CHLORIDE 112 MEQ/L (98-107); CREATININE 2.44 MG/DL (0.60-1.30); GLOMERULAR FILTRATION RATE 26 ML/MIN (>89); GLUCOSE,RANDOM 96 MG/DL (74-106); SODIUM (NA) 148 MEQ/L (136-145); TOTAL BILIRUBIN ADULT 1.6 MG/DL (0.2-1.0); TOTAL PROTEIN 5.2 GM/DL (6.4-8.2)
[2017-09-05 07:30] LABS: BANDS 15 % (0-6); BASOPHILS 1 % (0-2); BLASTS 43 % (0-0); CORRECTED NUCLEATED RBC 3 /100 WBC (0-0); LYMPHOCYTES 15 % (9-44); NUCLEATED RED BLOOD CELL 3 (0-0); POLYS (SEG NEUTROPHILS) 24 % (16-70)
[2017-09-05] MEDS ORDERED: SODIUM CHLOR 0.9% 250 ML INJ 250 ML IV ONE (08:45)
[2017-09-05] MEDS ORDERED: SODIUM CHLORID 0.9% 500 ML INJ 500 ML IV ONE (08:45)
[2017-09-05] MEDS: predniSONE 20 MG TAB PO SCH ×2 (09:00→20:47)
[2017-09-05] MEDS: ALLOPURINOL 300 MG TAB PO SCH (09:00)
[2017-09-05] MEDS: predniSONE 50 MG TAB PO SCH ×2 (09:00→20:47)
[2017-09-05] MEDS: predniSONE 1 MG TAB PO SCH ×2 (09:00→20:48)
[2017-09-05] MEDS ORDERED: HYDROCORTISONE SOD SUCCINATE 100 MG VIAL IV PUSH ONE (09:30)
[2017-09-05] MEDS ORDERED: FAMOTIDINE 20 MG TAB PO ONE (09:30)
[2017-09-05] MEDS ORDERED: CETIRIZINE HCL 10 MG TAB PO ONE (09:30)
[2017-09-05] MEDS: BUDESONIDE-FORMOTEROL 160/4.5 MCG INHALER INH SCH ×2 (10:06→20:49)
[2017-09-05] MEDS: RAMIPRIL 5 MG CAP PO SCH (10:12)
[2017-09-05] MEDS: PANTOPRAZOLE SODIUM 40 MG VIAL IV PUSH SCH (10:12)
[2017-09-05] MEDS: SODIUM CHLORIDE 0.9% FLUSH 10 ML FLUSH IV FLUSH SCH ×2 (10:13→20:48)
[2017-09-05] MEDS: ETOPOSIDE IV SCH (10:22)
[2017-09-05] MEDS: [UNRECOGNIZED DRUG - OTHER] IV SCH (10:22)
[2017-09-05] MEDS: DOXORUBICIN IV SCH (10:22)
[2017-09-05] MEDS: VINCRISTINE IV SCH (10:22)
--- NOTE | 2017-09-05 10:28 | PD.ONC.PN ---
Subjective Subjective Remarks T-max 99.1 at 4 AM Patient reports he had some mild shortness of breath last night "I had to breathe through my mouth" Per senior escrow officer, he was initiated on Rituxan last night and had a reaction with diffuse pain and tremors This morning he reports his breathing feels somewhat improved Discouraged about being transferred to ICU- wants to be able to get up and walk around his room Objective Data Date Time Temp Pulse Resp B/P (MAP) Pulse Ox O2 Delivery O2 Flow Rate FiO2 09/05/17 07:30 96.2 86 18 102/58 (73) 94 09/05/17 06:03 83 09/05/17 05:09 88 09/05/17 04:14 99.1 91 24 92/54 (67) 95 09/05/17 04:13 97.4 09/05/17 04:01 94 09/05/17 03:02 90 09/05/17 02:02 97 09/05/17 01:36 98 28 99/53 (68) 93 09/05/17 01:03 97 09/05/17 00:55 97 09/05/17 00:22 99.5 94 26 97/55 (69) 93 09/04/17 23:53 104 09/04/17 23:52 100.0 95 32 107/51 (69) 92 09/04/17 23:28 98.5 98 28 148/80 (102) 90 09/04/17 23:03 77 09/04/17 22:59 97.7 79 28 98/55 (69) 90 09/04/17 22:47 97.7 85 92 09/04/17 22:35 98.4 75 20 105/52 (69) 93 09/04/17 22:17 98.6 82 18 119/58 (78) 93 09/04/17 22:08 83 09/04/17 21:50 97.9 86 18 120/58 (78) 93 09/04/17 21:08 84 09/04/17 21:07 95 21 09/04/17 20:59 88 93 09/04/17 20:03 88 09/04/17 19:32 98.7 84 16 127/66 (86) 93 09/04/17 19:08 87 09/04/17 15:25 98.9 100 16 116/63 (80) 100 4/24/18 15:05 98.8 100 16 96/54 (68) 100 09/04/17 14:48 98.9 102 20 115/55 (75) 09/04/17 11:30 98.5 87 20 120/59 (79) 91 09/05/17 09/05/17 09/05/17 07:00 15:00 23:00 Intake Total 240 ml Balance 240 ml Result Diagram: 09/05/17 0420 09/05/17 0420 Laboratory Results Laboratory Tests Test 09/04/17 15:07 09/05/17 04:20 CSF Volume (Tube 1) 1.0 ML CSF Supernatant Color (tube 1) CLEAR CSF WBC (Tube 1) 296 /MM3 CSF RBC (Tube 1) 1553 /MM3 CSF Volume (Tube 2) 2.5 ML CSF Supernatant Color (tube 2) CLEAR CSF Gross Blood (Tube 2) TRACE CSF Volume (Tube 3) 2.0 ML CSF Supernatant Color (tube 3) CLEAR CSF Gross Blood (Tube 3) TRACE CSF Volume (Tube 4) 2.0 ML CSF Supernatant Color (tube 4) CLEAR CSF Neutrophils 2 % CSF Lymphocytes 14 % CSF Plasma Cells 1 % CSF Other Cells 83 % CSF Differential Comment CSF Glucose 40 MG/DL CSF Total Protein 57.3 MG/DL White Blood Count 7.8 TH/MM3 Red Blood Count 2.22 MIL/MM3 Hemoglobin 7.2 GM/DL Hematocrit 20.7 % Mean Corpuscular Volume 93.5 FL Mean Corpuscular Hemoglobin 32.6 PG Mean Corpuscular Hemoglobin Concent 34.9 % Red Cell Distribution Width 14.7 % Platelet Count 27 TH/MM3 Mean Platelet Volume 8.7 FL CBC Comment AUTO DIFF Differential Total Cells Counted 100 Neutrophils % (Manual) 24 % Band Neutrophils % 15 % Lymphocytes % 15 % Eosinophils % 2 % Basophils % 1 % Neutrophils # (Manual) 3.0 TH/MM3 Nucleated Red Blood Cells 3 /100 WBC Differential Comment FINAL DIFF MANUAL Blastocytes 43 % Platelet Estimate LOW Platelet Morphology Comment NORMAL Blood Urea Nitrogen 53 MG/DL Creatinine 2.44 MG/DL Random Glucose 96 MG/DL Total Protein 5.2 GM/DL Albumin 2.6 GM/DL Calcium Level 8.3 MG/DL Uric Acid 8.5 MG/DL Alkaline Phosphatase 206 U/L Aspartate Amino Transf (AST/SGOT) 132 U/L Alanine Aminotransferase (ALT/SGPT) 51 U/L Lactate Dehydrogenase 72134 U/L Total Bilirubin 1.6 MG/DL Sodium Level 148 MEQ/L Potassium Level 4.0 MEQ/L Chloride Level 112 MEQ/L Carbon Dioxide Level 14.5 MEQ/L Anion Gap 22 MEQ/L Estimat Glomerular Filtration Rate 26 ML/MIN Imaging Studies Last 24 hours Impressions Chest X-Ray 09/05/17 0000 Signed Impressions: Service Date/Time: Tuesday, September 05, 2017 01:50 - CONCLUSION: 1. Right PICC line in superior vena cava. Subsegmental basilar airspace disease. No effusion or pneumothorax. Cory Camarena MD Administered Medications Medications (Trade) Dose Ordered Sig/Robert Route PRN Reason Start Time Stop Time Status Last Admin Dose Admin Sodium Chloride 1,000 ml @ 100 mls/hr Q10H IV 08/29/17 16:00 09/05/17 05:44 Sodium Chloride (NS Flush) 2 ml UNSCH PRN IV FLUSH FLUSH AFTER USING IV ACCESS 08/29/17 15:45 09/03/17 00:37 Sodium Chloride (NS Flush) 2 ml BID IV FLUSH 08/29/17 21:00 09/04/17 20:59 Pantoprazole Sodium (Protonix Inj) 40 mg DAILY IV PUSH 08/30/17 09:00 09/04/17 08:27 Albuterol/ Ipratropium (Duoneb Neb) 1 ampule Q2HR NEB PRN INH WHEEZING 08/29/17 16:00 09/04/17 23:32 Chlorhexidine Gluconate (Chlorhexidine 2% Cloth) Taper DAILY@04 TOP 08/30/17 04:00 08/26/18 03:59 08/31/17 04:00 Senna/Docusate Sodium (Madina-Colace) 1 tab BID PO 08/29/17 21:00 09/04/17 20:58 Albuterol Sulfate (Proair Hfa Inh) 2 puff Q6H PRN INH SHORTNESS OF BREATH 08/29/17 18:00 08/30/17 10:20 Amlodipine Besylate (Norvasc) 10 mg DAILY PO 08/30/17 09:00 09/04/17 08:27 Budesonide/ Formoterol Fumarate (Symbicort 160-4.5 Mcg Inh) 2 puff BID INH 08/29/17 21:00 09/04/17 20:55 Ramipril (Altace) 10 mg DAILY PO 08/30/17 14:00 09/04/17 08:27 Morphine Sulfate (Morphine Inj) 4 mg Q4H PRN IV PUSH Pain 7 to 10 09/01/17 16:00 09/04/17 22:55 Allopurinol (Zyloprim) 300 mg BID PO 09/04/17 21:00 Future Hold 09/04/17 20:56 Prednisone (Deltasone) 100 mg BID PO 09/04/17 22:30 09/09/17 09:01 09/04/17 23:24 Prednisone (Deltasone) 20 mg BID PO 09/04/17 22:30 09/09/17 09:01 09/04/17 23:24 Prednisone (Deltasone) 3 mg BID PO 09/04/17 22:30 09/09/17 09:01 09/04/17 23:24 Sodium Chloride (NS Flush) DAILY IVF 09/05/17 09:00 09/04/17 22:55 Objective Remarks GENERAL: Older male resting in bed. SKIN: Warm and dry. HEAD: Normocephalic. EYES: No injection or drainage. NECK: Supple, trachea midline. CARDIOVASCULAR: Regular rate and rhythm without murmurs. RESPIRATORY: Clear anteriorly. Somewhat tachypneic with respiratory rate in the low 20s GASTROINTESTINAL: Abdomen soft, non-tender, nondistended. EXTREMITIES: No cyanosis, or edema. MUSCULOSKELETAL: Adequate muscle tone. NEUROLOGICAL: No obvious focal deficit. Awake, alert, and oriented x3. 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 awaiting final result ++also has bone pain, back pain, elevated LDH, as well as the sweats that suggests a more systemic manifestation of bone marrow disorder. ++ Nucleated red cells seen on peripheral smear. no acute blasts. CT C/A/P showing no LAD (2) Thrombocytopenia ICD Codes: D69.6 - Thrombocytopenia, unspecified Status: Acute (3) B-cell lymphoma ICD Codes: C85.10 - Unspecified B-cell lymphoma, unspecified site Status: Acute Plan: Rapid progression of symptoms. WBC increasing. Transfusion dependent on platelets and RBC. Discussed risks and benefits of starting treatment here. Fear that he can't get into an oncology tx center [facility] soon enough , [address] to [place], still needs an oncology appt. Noted his disease is progressing quickly. Discussed risks and benefits of R-EPOCH. Discussed risk of [employer]ITY [employer] INST[employer]ER involvement with Burkitt's, check cytology of CSF, tx with IT MTX, follow if need Omaya. Pt and decide to stay for treatment. Consult case management as he will need follow up in [facility] clinic for Neulasta and fu ultimately to oncologist in [place]. 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 09/04: PICC line placement today, start R-EPOCH, give IT MTX. 09/05: Patient had reaction to small dose of Rituxan last night. Noted that he has high risk for tumor lysis syndrome with worsening kidney function Assessment 72y/o male with anemia + thrombocytopenia. history of prostate cancer, status post prostatectomy, coronary artery disease, s/p stent placement. 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 Plan 1. Patient did not get Rituxan yesterday as he was initiated and had a reaction with diffuse pain and tremors. He did not want to try again last night. He was able to get the intrathecal methotrexate. 2. We will give premeds with Solu-Cortef, Zantac and Zyrtec and have Demerol available prn for reaction. 3. Noted pt has high risk of TLS; rec'd rasburicase yesterday- Creatinine significantly worse today. Consult nephrology 4. Transfer pt to ICU as he is at high risk for fluid overload with IV fluids, PRBC's and decreased kidney function. 5. Continue allopurinol 6. Monitor CBC, CMP, mag, phosphorus, uric acid Tiara Gonzalez Sep 05, 2017 10:28
[2017-09-05] MEDS ORDERED: ACETAMINOPHEN 325 MG TAB PO ONE ×2 (10:45→18:15)
[2017-09-05] MEDS: DOCUSATE SODIUM 50 MG/SENNA 8.6 MG TAB PO SCH ×2 (11:18→20:47)
[2017-09-05] MEDS ORDERED: MEPERIDINE HCL 25 MG/ML VIAL IV PUSH PRN (12:00)
--- NOTE | 2017-09-05 12:53 | HHI.PR ---
Subjective Remarks Deferred entry, the patient was seen earlier at 10:15 AM. The patient denies chest pain or shortness of breath. The patient states that he had several side effects and sensations when he was getting the intrathecal methotrexate. He states that he feels well now. Patient is afebrile and blood pressure has been noted to be borderline low with a systolic blood pressure in the high 90s. Objective Vitals Vital Signs Date Time Temp Pulse Resp B/P (MAP) Pulse Ox O2 Delivery O2 Flow Rate FiO2 09/05/17 07:30 96.2 86 18 102/58 (73) 94 09/05/17 06:03 83 09/05/17 05:09 88 09/05/17 04:14 99.1 91 24 92/54 (67) 95 09/05/17 04:13 97.4 09/05/17 04:01 94 09/05/17 03:02 90 09/05/17 02:02 97 09/05/17 01:36 98 28 99/53 (68) 93 09/05/17 01:03 97 09/05/17 00:55 97 09/05/17 00:22 99.5 94 26 97/55 (69) 93 09/04/17 23:53 104 09/04/17 23:52 100.0 95 32 107/51 (69) 92 09/04/17 23:28 98.5 98 28 148/80 (102) 90 09/04/17 23:03 77 09/04/17 22:59 97.7 79 28 98/55 (69) 90 09/04/17 22:47 97.7 85 92 09/04/17 22:35 98.4 75 20 105/52 (69) 93 09/04/17 22:17 98.6 82 18 119/58 (78) 93 09/04/17 22:08 83 09/04/17 21:50 97.9 86 18 120/58 (78) 93 09/04/17 21:08 84 09/04/17 21:07 95 21 09/04/17 20:59 88 93 09/04/17 20:03 88 09/04/17 19:32 98.7 84 16 127/66 (86) 93 09/04/17 19:08 87 09/04/17 15:25 98.9 100 16 116/63 (80) 100 4/24/18 15:05 98.8 100 16 96/54 (68) 100 09/04/17 14:48 98.9 102 20 115/55 (75) I/O 09/04/17 09/04/17 09/04/17 09/05/17 09/05/17 09/05/17 07:00 15:00 23:00 07:00 15:00 23:00 Intake Total 1520 ml 10 ml 477 ml 240 ml Output Total 800 ml 500 ml Balance 720 ml 10 ml -23 ml 240 ml Intake Oral 240 ml 120 ml 240 ml IV Total 1000 ml 110 ml Platelets 235 ml 217 ml Blood Product IV Normal Saline Flush 45 ml 10 ml 30 ml Output Urine Total 800 ml 500 ml # Bowel Movements 1 Result Diagram: 09/05/17 0420 09/05/17 0420 Imaging Last Impressions Chest X-Ray 09/05/17 0000 Signed Impressions: Service Date/Time: Tuesday, September 05, 2017 01:50 - CONCLUSION: 1. Right PICC line in superior vena cava. Subsegmental basilar airspace disease. No effusion or pneumothorax. Cory Camarena MD PICC Line Insertion 09/04/17 0600 Signed Impressions: Service Date/Time: Monday, September 04, 2017 15:12 - CONCLUSION: 1. Uncomplicated central venous Power PICC line placement. 2. The PICC line can be used immediately. Santy Burciaga Jr., MD Lumbar Puncture Fluoroscopy 09/04/17 0000 Signed Impressions: Service Date/Time: Monday, September 04, 2017 15:12 - CONCLUSION: Uncomplicated fluoroscopically guided lumbar puncture with pressures as above. Intrathecal methotrexate was administered. Santy Burciaga Jr., MD Chest CT 09/01/17 0000 Signed Impressions: Service Date/Time: Friday, September 01, 2017 16:48 - CONCLUSION: 1. No definite evidence for metastatic disease to the thorax. 2. 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 3. Scattered atelectasis and scarring in the lungs. 4. Moderate coronary calcifications. Cory Camarena MD Abdomen/Pelvis CT 09/01/17 0000 Signed Impressions: Service Date/Time: Friday, September 01, 2017 16:48 - CONCLUSION: 1. Post surgical changes with findings of cholecystectomy and prostatectomy. 2. Scattered diverticular disease of the colon without diverticulitis. 3. Lobulated cyst in the upper poles of both kidneys with some calcification on the left. 4. Retroperitoneal fat herniates through the left hemidiaphragm into the posterior left lung base. 5. No acute intraperitoneal or pelvic process to explain current clinical symptoms Gavin Lynn MD Bone Biopsy CT 08/30/17 1535 Signed Impressions: Service Date/Time: August 16:19 - CONCLUSION: 1. Uncomplicated CT guided bone marrow aspirate. 2. Uncomplicated CT guided bone marrow biopsy. Srikanth Ambrosio MD Thoracic Spine CT 08/30/170 Signed Impressions: Service Date/Time: August 01:37 - CONCLUSION: 1. No fracture, subluxation or other acute abnormality of the thoracic spine. 2. Scoliosis and mild multifocal degenerative changes as above. 3. Complex appearing cystic structures of the upper poles of both kidneys. Comparison to any previous outside facility studies is recommended to confirm chronicity and stability. Contrast enhanced study of the abdomen suggested if felt clinically indicated, preferably MRI if there are no contraindications. Tim Jones MD Lumbar Spine CT 08/30/1799 Signed Impressions: Service Date/Time: August 01:37 - CONCLUSION: 1. No acute fracture or acute subluxation of the lumbar spine. 2. 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 3. Mild spinal and bilateral foraminal stenosis at L4/L5. 4. Mild right and moderate left foraminal stenosis at L5/S1. 5. Benign vertebral body hemangioma of L1. No concerning lumbar spine bone lesion. Tim Jones MD Head CT 08/30/170 Signed Impressions: Service Date/Time: August 01:37 - CONCLUSION: Small frontal madina-falcine subdural blood is unchanged. Tim Jones MD Carotid Artery Ultrasound 08/30/17 0000 Signed Impressions: Service Date/Time: August 07:52 - CONCLUSION: 1. Diffuse calcified plaque throughout carotid arteries bilaterally with resultant moderate, 50-69%%, stenosis of the internal carotid arteries bilaterally and likely moderate stenosis of the left common carotid artery. 2. Antegrade vertebral artery flow bilaterally. Lopez Taylor MD Brain MRI 08/30/17 0000 Signed Impressions: Service Date/Time: August 09:27 - CONCLUSION: 1. Right frontal parafalcine abnormality on CT exam corresponds to a small meningioma. No definitive intra-or extra-axial hemorrhage. Lopez Taylor MD Objective Remarks GENERAL: NAD, A&Ox3 HEAD: Normocephalic. NECK: Supple, trachea midline. No lymphadenopathy. EYES: No scleral icterus. No injection or drainage. CARDIOVASCULAR: Regular rate and rhythm without murmurs, gallops, or rubs. RESPIRATORY: Breath sounds equal bilaterally. No accessory muscle use. GASTROINTESTINAL: Abdomen soft, non-tender, nondistended. MUSCULOSKELETAL: No cyanosis, or edema. SKIN: Warm and dry. NEURO: No focal neurological deficitis. Procedures Bone marrow biopsy 08/30/2017. Medications and IVs Current Medications Medications (Trade) Dose Ordered Sig/Robert Route Start Time Stop Time Status Last Admin Sodium Chloride 1,000 ml @ 100 mls/hr Q10H IV 08/29/17 16:00 09/05/17 05:44 (NS Flush) 2 ml UNSCH PRN IV FLUSH 08/29/17 15:45 09/03/17 00:37 (NS Flush) 2 ml BID IV FLUSH 08/29/17 21:00 09/05/17 10:13 (Protonix Inj) 40 mg DAILY IV PUSH 08/30/17 09:00 09/05/17 10:12 (Zofran Inj) 4 mg Q6H PRN IV PUSH 08/29/17 16:00 (Duoneb Neb) 1 ampule Q2HR NEB PRN INH 08/29/17 16:00 09/04/17 23:32 Miscellaneous Information 1 Q361D XX 08/29/17 15:45 (Chlorhexidine 2% Cloth) Taper DAILY@04 TOP 08/30/17 04:00 08/26/18 03:59 08/31/17 04:00 (Chlorhexidine 2% Cloth) 3 pack UNSCH PRN TOP 08/29/17 15:45 (Madina-Colace) 1 tab BID PO 08/29/17 21:00 09/05/17 11:18 (Milk Of Magnesia Liq) 30 ml Q12H PRN PO 08/29/17 16:00 (Senokot) 17.2 mg Q12H PRN PO 08/29/17 16:00 (Dulcolax Supp) 10 mg DAILY PRN RECTAL 08/29/17 16:00 (Lactulose Liq) 30 ml DAILY PRN PO 08/29/17 16:00 (Proair Hfa Inh) 2 puff Q6H PRN INH 08/29/17 18:00 08/30/17 10:20 (Norvasc) 10 mg DAILY PO 08/30/17 09:00 09/05/17 10:12 (Symbicort 160-4.5 Mcg Inh) 2 puff BID INH 08/29/17 21:00 09/05/17 10:06 (Altace) 10 mg DAILY PO 08/30/17 14:00 09/05/17 10:12 (SoluMEDROL INJ) 40 mg ONCE PRN IV PUSH 09/01/17 16:00 09/08/17 15:59 (Morphine Inj) 2 mg Q4H PRN IV PUSH 09/01/17 16:00 (Morphine Inj) 4 mg Q4H PRN IV PUSH 09/01/17 16:00 09/04/17 22:55 (Zyloprim) 300 mg BID PO 09/04/17 21:00 Future Hold 09/04/17 20:56 (Kytril Inj) 1 mg Q24H IV 09/04/17 22:30 09/08/17 22:31 Doxorubicin HCl 20.5 mg/ Vincristine Sulfate 0.82 mg/ Etoposide 102.5 mg/Sodium Chloride 516.195 ml @ 21.508 mls/hr Q24H IV 09/04/17 23:00 09/08/17 22:59 (Benadryl Inj) 50 mg UNSCH PRN IV PUSH 09/04/17 15:45 09/07/17 15:44 (Adrenalin (1:1000) Inj) 0.3 mg Q10M PRN OTHER 09/04/17 15:45 09/07/17 15:44 (Deltasone) 100 mg BID PO 09/04/17 22:30 09/09/17 09:01 09/04/17 23:24 (Deltasone) 20 mg BID PO 09/04/17 22:30 09/09/17 09:01 09/04/17 23:24 (Deltasone) 3 mg BID PO 09/04/17 22:30 09/09/17 09:01 09/04/17 23:24 Cyclophosphamide 1537.5 mg/Sodium Chloride 250 ml @ 250 mls/hr ONCE ONCE IV 09/08/17 23:00 09/08/17 23:59 (NS Flush) DAILY IVF 09/05/17 09:00 09/04/17 22:55 (Heparin Central Flush) DAILY IV FLUSH 09/05/17 09:00 (NS Flush) UNSCH PRN IVF 09/04/17 16:00 (Heparin Central Flush) UNSCH PRN IV FLUSH 09/04/17 16:00 (NS Flush) UNSCH PRN IVF 09/04/17 16:00 Sodium Chloride 250 ml @ 15 mls/hr ONCE ONCE IV 09/05/17 08:45 09/06/17 01:24 (Demerol Inj) 12.5 mg ONCE PRN IV PUSH 09/05/17 12:00 09/08/17 11:59 A/P Problem List: (1) Anemia ICD Code: D64.9 - Anemia, unspecified Status: Acute Plan: Anemia likely secondary to acute blood loss secondary to thrombocytopenia and ensuing GI bleed. The patient status post infusion of a total of 3 units of packed red blood cells , 2 units of fresh frozen plasma and 3 units of platelets. Continue to monitor CBC, profuse as needed for hemoglobin less than 8 if active bleeding, less than 7 or symptomatic anemia. 09/05 hemoglobin trending down to 7.2. Transfuse 1 unit of packed red blood cells. Continue to monitor H&H post infusional. (2) Thrombocytopenia ICD Code: D69.6 - Thrombocytopenia, unspecified Status: Acute Plan: Suspected secondary to B-cell lymphoma. Platelets trending up, 30 1K today. Transfuse 1 unit of platelets today as per hematology. Continue to monitor platelets and transfuse as per hematology recommendations. 4 09/05 platelet count slowly dropping from 31K to 27K. (3) GI bleed ICD Code: K92.2 - Gastrointestinal hemorrhage, unspecified Status: Acute Plan: GI consulted. There is no obvious GI bleed. Hemoglobin 8.6 today. Received 1 unit of PRBC last night as per hematology. Hold off on endoscopic procedures at this time. (4) Back pain ICD Code: M54.9 - Dorsalgia, unspecified Status: Acute Plan: The patient is status post lumbar and thoracic spine CT. Lumbar spine CT is negative for acute fractures or acute subluxation of the lumbar spine. 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 Mild spinal and bilateral foraminal stenosis at L4/L5. Mild right and moderate left foraminal stenosis at L5-S1. Benign vertebral body hemangioma of the L1. No concerning lumbar spine bone lesions. Thoracic spine CT showed no fracture, subluxation or acute abnormality of the thoracic spine. There is presence of a scoliosis and degenerative changes. It is observed that the patient has complex appearing cystic structures of the upper poles of both kidneys. Pain controlled. Continue oral [place] and change morphine for breakthrough pain only. (5) History of ID (myocardial infarction) ICD Code: I25.2 - Old myocardial infarction Plan: The patient is chest pain-free. Hold aspirin secondary to anemia, thrombocytopenia. Continue ramipril. 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 Patient sp LP with IT methotrexate. Allopurinol increased to twice daily to prevent tumor lysis syndrome. 09/05 Patient to start R-EPOCH today. Management as per medical oncology. Will look for complications. Check 2 D Echocardiogram to obtain a baseline since patient will get Adriamycin and has h/o CAD. (7) Abnormal head CT ICD Code: R93.0 - Abnormal findings on diagnostic imaging of skull and head, not elsewhere classified Plan: The patient is status post CT of the head which showed a small focal region of increased density in the anterior falx concerning for hemorrhage.. Neurosurgery has been consulted. Recommended neuro checks every 1 hour and follow-up head CT. Follow-up head CT showed a small frontal perifalcine subdural blood which is unchanged. 09/05 no new neurological changes. (8) Hearing loss ICD Code: H91.90 - Unspecified hearing loss, unspecified ear Plan: Recent loss of hearing in the left ear. This is associated with dizziness. Suspect possibly patient has Mnire's disease since there is some ringing associated. Consult ENT. (9) Leukocytosis ICD Code: D72.829 - Elevated white blood cell count, unspecified Plan: No active signs of infection. Follow-up hematology recommendations. Possibly secondary to steroid administration that he got on for 09/01. This could also be possibly due to lymphoma. Continue to monitor CBC with differential. 09/05 WBC count greatly improved from 20 4.1K down to 7.8K. Continue to monitor CBC with differential. Assessment and Plan DVT prophylaxis: SCDs, no chemoprophylaxis given anemia and thrombocytopenia. Discharge Planning Continue to monitor and the oncology floor. Problem Qualifiers (1) Anemia: Qualified Codes: D64.9 - Anemia, unspecified (2) Back pain: Qualified Codes: M54.9 - Dorsalgia, unspecified (3) Hearing loss: Qualified Codes: H91.92 - Unspecified hearing loss, left ear (4) Leukocytosis: Qualified Codes: D72.829 - Elevated white blood cell count, unspecified Sukhwinder Zamudio MD Sep 05, 2017 12:53
--- NOTE | 2017-09-05 14:57 | PD.CONS ---
HPI Service Nephrology Consult Requested By Dr. Duron Reason for Consult Acute kidney injury Acute tumor lysis Primary Care Physician Unknown History of Present Illness Patient is a 72 year old male with a past medical history of prostate cancer, asthma, gastroesophageal reflux, Muñoz's esophagus,hypertension, new anemia, new thrombocytopenia, rotator cuff injury, and back pain. 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 Patient was receiving Rituxan last night and developed a reaction with low grade temperature, pain, and tremor. Plan to transfer patient to intensive care unit as patient is at risk for fluid overload with blood transfusions and acute kidney injury. Nephrology is consulted for acute kidney injury with creatinine of 2.44 with a admission creatinine of 0.99. HGB is low at 7.2, Plt of 27, NA 148, CO2 14.5. Patient is resting comfortably now with his only complaint is that is dizzy with ambulation. (Janet Ribeiro) Review of Systems Constitutional: COMPLAINS OF: Fatigue, Dizziness Respiratory: COMPLAINS OF: Shortness of breath, DENIES: Cough, Wheezing Cardiovascular: DENIES: Chest pain, Lower Extremity Edema (Janet Ribeiro) Past Family Social History Allergies: Coded Allergies: Penicillins (Verified Allergy, Severe, Itching, 08/29/17) Quinolones (Verified Allergy, Severe, Swelling, 08/29/17) hydrocodone (Verified Allergy, Severe, Itching, 08/29/17) meperidine (Verified Allergy, Unknown, 08/29/17) diphenhydramine (Unverified Adverse Reaction, Intermediate, Shortness of Breath, 09/01/17) Past Medical History Muñoz's esophagus Colon polyps GERD hypertension Past Surgical History Colonoscopy and endoscopy approximately 2 years ago prostate cancer Coronary artery stents Cholecystectomy Active Ordered Medications Current Medications Medications (Trade) Dose Ordered Sig/Robert Route Start Time Stop Time Status Last Admin Sodium Chloride 1,000 ml @ 100 mls/hr Q10H IV 08/29/17 16:00 09/05/17 05:44 (NS Flush) 2 ml UNSCH PRN IV FLUSH 08/29/17 15:45 09/03/17 00:37 (NS Flush) 2 ml BID IV FLUSH 08/29/17 21:00 09/05/17 10:13 (Protonix Inj) 40 mg DAILY IV PUSH 08/30/17 09:00 09/05/17 10:12 (Zofran Inj) 4 mg Q6H PRN IV PUSH 08/29/17 16:00 (Duoneb Neb) 1 ampule Q2HR NEB PRN INH 08/29/17 16:00 09/04/17 23:32 Miscellaneous Information 1 Q361D XX 08/29/17 15:45 (Chlorhexidine 2% Cloth) Taper DAILY@04 TOP 08/30/17 04:00 08/26/18 03:59 08/31/17 04:00 (Chlorhexidine 2% Cloth) 3 pack UNSCH PRN TOP 08/29/17 15:45 (Madina-Colace) 1 tab BID PO 08/29/17 21:00 09/05/17 11:18 (Milk Of Magnesia Liq) 30 ml Q12H PRN PO 08/29/17 16:00 (Senokot) 17.2 mg Q12H PRN PO 08/29/17 16:00 (Dulcolax Supp) 10 mg DAILY PRN RECTAL 08/29/17 16:00 (Lactulose Liq) 30 ml DAILY PRN PO 08/29/17 16:00 (Proair Hfa Inh) 2 puff Q6H PRN INH 08/29/17 18:00 08/30/17 10:20 (Norvasc) 10 mg DAILY PO 08/30/17 09:00 09/05/17 10:12 (Symbicort 160-4.5 Mcg Inh) 2 puff BID INH 08/29/17 21:00 09/05/17 10:06 (Altace) 10 mg DAILY PO 08/30/17 14:00 09/05/17 10:12 (SoluMEDROL INJ) 40 mg ONCE PRN IV PUSH 09/01/17 16:00 09/08/17 15:59 (Morphine Inj) 2 mg Q4H PRN IV PUSH 09/01/17 16:00 (Morphine Inj) 4 mg Q4H PRN IV PUSH 09/01/17 16:00 09/04/17 22:55 (Zyloprim) 300 mg BID PO 09/04/17 21:00 Future Hold 09/04/17 20:56 (Kytril Inj) 1 mg Q24H IV 09/04/17 22:30 09/08/17 22:31 Doxorubicin HCl 20.5 mg/ Vincristine Sulfate 0.82 mg/ Etoposide 102.5 mg/Sodium Chloride 516.195 ml @ 21.508 mls/hr Q24H IV 09/04/17 23:00 09/08/17 22:59 (Benadryl Inj) 50 mg UNSCH PRN IV PUSH 09/04/17 15:45 09/07/17 15:44 (Adrenalin (1:1000) Inj) 0.3 mg Q10M PRN OTHER 09/04/17 15:45 09/07/17 15:44 (Deltasone) 100 mg BID PO 09/04/17 22:30 09/09/17 09:01 09/04/17 23:24 (Deltasone) 20 mg BID PO 09/04/17 22:30 09/09/17 09:01 09/04/17 23:24 (Deltasone) 3 mg BID PO 09/04/17 22:30 09/09/17 09:01 09/04/17 23:24 Cyclophosphamide 1537.5 mg/Sodium Chloride 250 ml @ 250 mls/hr ONCE ONCE IV 09/08/17 23:00 09/08/17 23:59 (NS Flush) DAILY IVF 09/05/17 09:00 09/04/17 22:55 (Heparin Central Flush) DAILY IV FLUSH 09/05/17 09:00 (NS Flush) UNSCH PRN IVF 09/04/17 16:00 (Heparin Central Flush) UNSCH PRN IV FLUSH 09/04/17 16:00 (NS Flush) UNSCH PRN IVF 09/04/17 16:00 Sodium Chloride 250 ml @ 15 mls/hr ONCE ONCE IV 09/05/17 08:45 09/06/17 01:24 (Demerol Inj) 12.5 mg ONCE PRN IV PUSH 09/05/17 12:00 09/08/17 11:59 Family History Non contributory Social History Denies any tobacco or alcohol use (Janet Ribeiro) Physical Exam Vital Signs Vital Signs Date Time Temp Pulse Resp B/P (MAP) Pulse Ox O2 Delivery O2 Flow Rate FiO2 09/05/17 13:34 78 09/05/17 12:58 97.8 80 24 105/52 (69) 97 09/05/17 12:00 97.8 74 24 106/52 (70) 96 09/05/17 09:15 81 24 107/54 (71) 95 09/05/17 08:00 81 09/05/17 08:00 96.2 86 20 102/58 (73) 94 09/05/17 07:30 96.2 86 18 102/58 (73) 94 09/05/17 06:03 83 09/05/17 05:09 88 09/05/17 04:14 99.1 91 24 92/54 (67) 95 09/05/17 04:13 97.4 09/05/17 04:01 94 09/05/17 03:02 90 09/05/17 02:02 97 09/05/17 01:36 98 28 99/53 (68) 93 09/05/17 01:03 97 09/05/17 00:55 97 09/05/17 00:22 99.5 94 26 97/55 (69) 93 09/04/17 23:53 104 09/04/17 23:52 100.0 95 32 107/51 (69) 92 09/04/17 23:28 98.5 98 28 148/80 (102) 90 09/04/17 23:03 77 09/04/17 22:59 97.7 79 28 98/55 (69) 90 09/04/17 22:47 97.7 85 92 09/04/17 22:35 98.4 75 20 105/52 (69) 93 09/04/17 22:17 98.6 82 18 119/58 (78) 93 18 22:08 83 18 21:50 97.9 86 18 120/58 (78) 93 18 21:08 84 18 21:07 95 21 09/04/17 20:59 88 93 09/04/17 20:03 88 09/04/17 19:32 98.7 84 16 127/66 (86) 93 18 19:08 87 09/04/17 15:25 98.9 100 16 116/63 (80) 100 09/04/17 15:05 98.8 100 16 96/54 (68) 100 09/04/17 14:48 98.9 102 20 115/55 (75) Physical Exam GENERAL: Alert and oriented SKIN: Warm and dry. HEAD: Normocephalic. EYES: No scleral icterus. No injection or drainage. NECK: Supple, trachea midline. No JVD or lymphadenopathy. CARDIOVASCULAR: Regular rate and rhythm without murmurs, gallops, or rubs. RESPIRATORY: Breath sounds equal bilaterally. No accessory muscle use. GASTROINTESTINAL: Abdomen soft, non-tender, nondistended. MUSCULOSKELETAL: No cyanosis, or edema. BACK: Nontender without obvious deformity. No CVA tenderness. Laboratory Laboratory Tests Test 09/04/17 15:07 09/05/17 04:20 CSF Volume (Tube 1) 1.0 CSF Supernatant Color (tube 1) CLEAR CSF WBC (Tube 1) 296 CSF RBC (Tube 1) 1553 CSF Volume (Tube 2) 2.5 CSF Supernatant Color (tube 2) CLEAR CSF Gross Blood (Tube 2) TRACE CSF Volume (Tube 3) 2.0 CSF Supernatant Color (tube 3) CLEAR CSF Gross Blood (Tube 3) TRACE CSF Volume (Tube 4) 2.0 CSF Supernatant Color (tube 4) CLEAR CSF Neutrophils 2 CSF Lymphocytes 14 CSF Plasma Cells 1 CSF Other Cells 83 CSF Differential Comment CSF Glucose 40 CSF Total Protein 57.3 White Blood Count 7.8 Red Blood Count 2.22 Hemoglobin 7.2 Hematocrit 20.7 Mean Corpuscular Volume 93.5 Mean Corpuscular Hemoglobin 32.6 Mean Corpuscular Hemoglobin Concent 34.9 Red Cell Distribution Width 14.7 Platelet Count 27 Mean Platelet Volume 8.7 CBC Comment AUTO DIFF Differential Total Cells Counted 100 Neutrophils % (Manual) 24 Band Neutrophils % 15 Lymphocytes % 15 Eosinophils % 2 Basophils % 1 Neutrophils # (Manual) 3.0 Nucleated Red Blood Cells 3 Differential Comment FINAL DIFF MANUAL Blastocytes 43 Platelet Estimate LOW Platelet Morphology Comment NORMAL Blood Urea Nitrogen 53 Creatinine 2.44 Random Glucose 96 Total Protein 5.2 Albumin 2.6 Calcium Level 8.3 Uric Acid 8.5 Alkaline Phosphatase 206 Aspartate Amino Transf (AST/SGOT) 132 Alanine Aminotransferase (ALT/SGPT) 51 Lactate Dehydrogenase 18476 Total Bilirubin 1.6 Sodium Level 148 Potassium Level 4.0 Chloride Level 112 Carbon Dioxide Level 14.5 Anion Gap 22 Estimat Glomerular Filtration Rate 26 Date/Time Source Procedure Growth Status 08/30/17 11:40 Blood Peripheral Aerobic Blood Culture - Final NO GROWTH IN 5 DAYS Complete 08/30/17 11:40 Blood Peripheral Anaerobic Blood Culture - Final NO GROWTH IN 5 DAYS Complete (Janet Ribeiro) Result Diagram: 09/05/17 0420 09/05/17 0420 Imaging Last Impressions Chest X-Ray 09/05/17 0000 Signed Impressions: Service Date/Time: Tuesday, September 05, 2017 01:50 - CONCLUSION: 1. Right PICC line in superior vena cava. Subsegmental basilar airspace disease. No effusion or pneumothorax. Cory Camarena MD PICC Line Insertion 09/04/17 0600 Signed Impressions: Service Date/Time: Monday, September 04, 2017 15:12 - CONCLUSION: 1. Uncomplicated central venous Power PICC line placement. 2. The PICC line can be used immediately. Santy Burciaga Jr., MD Lumbar Puncture Fluoroscopy 09/04/17 0000 Signed Impressions: Service Date/Time: Monday, September 04, 2017 15:12 - CONCLUSION: Uncomplicated fluoroscopically guided lumbar puncture with pressures as above. Intrathecal methotrexate was administered. Santy Burciaga Jr., MD Chest CT 09/01/17 0000 Signed Impressions: Service Date/Time: Friday, September 01, 2017 16:48 - CONCLUSION: 1. No definite evidence for metastatic disease to the thorax. 2. 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 3. Scattered atelectasis and scarring in the lungs. 4. Moderate coronary calcifications. Cory Cmaarena MD Abdomen/Pelvis CT 09/01/17 0000 Signed Impressions: Service Date/Time: Friday, September 01, 2017 16:48 - CONCLUSION: 1. Post surgical changes with findings of cholecystectomy and prostatectomy. 2. Scattered diverticular disease of the colon without diverticulitis. 3. Lobulated cyst in the upper poles of both kidneys with some calcification on the left. 4. Retroperitoneal fat herniates through the left hemidiaphragm into the posterior left lung base. 5. No acute intraperitoneal or pelvic process to explain current clinical symptoms Gavin Lynn MD Bone Biopsy CT 08/30/17 1535 Signed Impressions: Service Date/Time: August 16:19 - CONCLUSION: 1. Uncomplicated CT guided bone marrow aspirate. 2. Uncomplicated CT guided bone marrow biopsy. Srikanth Ambrosio MD Thoracic Spine CT 08/30/1799 Signed Impressions: Service Date/Time: August 01:37 - CONCLUSION: 1. No fracture, subluxation or other acute abnormality of the thoracic spine. 2. Scoliosis and mild multifocal degenerative changes as above. 3. Complex appearing cystic structures of the upper poles of both kidneys. Comparison to any previous outside facility studies is recommended to confirm chronicity and stability. Contrast enhanced study of the abdomen suggested if felt clinically indicated, preferably MRI if there are no contraindications. Tim Jones MD Lumbar Spine CT 08/30/1799 Signed Impressions: Service Date/Time: August 01:37 - CONCLUSION: 1. No acute fracture or acute subluxation of the lumbar spine. 2. 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 3. Mild spinal and bilateral foraminal stenosis at L4/L5. 4. Mild right and moderate left foraminal stenosis at L5/S1. 5. Benign vertebral body hemangioma of L1. No concerning lumbar spine bone lesion. Tim Jones MD Head CT 08/30/1799 Signed Impressions: Service Date/Time: August 01:37 - CONCLUSION: Small frontal madina-falcine subdural blood is unchanged. Tim Jones MD Carotid Artery Ultrasound 08/30/17 0000 Signed Impressions: Service Date/Time: August 07:52 - CONCLUSION: 1. Diffuse calcified plaque throughout carotid arteries bilaterally with resultant moderate, 50-69%%, stenosis of the internal carotid arteries bilaterally and likely moderate stenosis of the left common carotid artery. 2. Antegrade vertebral artery flow bilaterally. Lopez Taylor MD Brain MRI 08/30/17 0000 Signed Impressions: Service Date/Time: August 09:27 - CONCLUSION: 1. Right frontal parafalcine abnormality on CT exam corresponds to a small meningioma. No definitive intra-or extra-axial hemorrhage. Lopez Taylor MD (Janet Ribeiro) Assessment and Plan Problem List: (1) Acute kidney injury ICD Codes: N17.9 - Acute kidney failure, unspecified Plan: Acute kidney injury with creatinine of 2.44 today. Acute kidney injury most likely related to tumor lysis. On admission creatinine of 0.99. CT of abdomen on the 21nd with kidney with normal in size and shape. There is no mass, stone or hydronephrosis. Lobulated cysts in the upper poles of both kidneys with some benign-appearing calcification on the left Plan Plan to transfer to ICU for closer observation Drop in urinary output with increase in creatinine nursing to do bladder scan. Strict I+O Will monitor renal panel and urinary output Avoid nephrotoxins. HCO3 low will order sodium bicarbonate Anemia with HGB of 7.2 plan to transfuse when Rituxan completed. (2) B-cell lymphoma ICD Codes: C85.10 - Unspecified B-cell lymphoma, unspecified site Status: Acute Plan: Oncology managing (3) Anemia ICD Codes: D64.9 - Anemia, unspecified Status: Acute Plan: Plan to transfuse (Janet Ribeiro) Problem List: (1) Acute kidney injury ICD Codes: N17.9 - Acute kidney failure, unspecified Plan: Acute kidney injury with creatinine of 2.44 today. Acute kidney injury most likely related to tumor lysis. On admission creatinine of 0.99. CT of abdomen on the 21 with kidney with normal in size and shape. There is no mass, stone or hydronephrosis. Lobulated cysts in the upper poles of both kidneys with some benign-appearing calcification on the left Plan Plan to transfer to ICU for closer observation Drop in urinary output with increase in creatinine nursing to do bladder scan. Strict I+O Will monitor renal panel and urinary output Avoid nephrotoxins. HCO3 low will order sodium bicarbonate Anemia with HGB of 7.2 plan to transfuse when Rituxan completed. Patient seen and examined, agree with above. Patient has LUCA, most likely has Tumor lysis, IVF with gentle hydration, and add NaHCo3. D/W Dr. Duron. (2) B-cell lymphoma ICD Codes: C85.10 - Unspecified B-cell lymphoma, unspecified site Status: Acute Plan: Oncology managing (3) Anemia ICD Codes: D64.9 - Anemia, unspecified Status: Acute Plan: Plan to transfuse (Demi Mendez MD) Problem Qualifiers (1) Anemia: Qualified Codes: D64.9 - Anemia, unspecified Janet Ribeiro Sep 05, 2017 14:57 Demi Mendez MD Sep 06, 2017 18:38
[2017-09-05] MEDS ORDERED: FUROSEMIDE 20 MG/2 ML VIAL IV PUSH ONE (17:45)
[2017-09-05] MEDS ORDERED: SODIUM CHLOR 0.45% IV SCH (17:45)
[2017-09-05] MEDS ORDERED: SODIUM BICARBONATE IV SCH (17:45)
[2017-09-05] MEDS: SODIUM BICARBONATE 8.4% INJ 100 MEQ in SODIUM CHLOR 0.45% 1000 ML INJ 1,000 ML IV SCH (20:48)
[2017-09-05] MEDS: GRANISETRON HCL 1 MG/ML VIAL IV SCH (20:49)
[2017-09-05 20:58] LABS: ALBUMIN 2.3 GM/DL (3.4-5.0); BICARBONATE 16.6 MEQ/L (21.0-32.0); CALCIUM 6.3 MG/DL (8.5-10.1); CREATININE 2.8 MG/DL (0.60-1.30); MAGNESIUM 2.7 MG/DL (1.5-2.5); TOTAL BILIRUBIN ADULT 0.8 MG/DL (0.2-1.0); TOTAL PROTEIN 4.9 GM/DL (6.4-8.2)
[2017-09-05] MEDS: SODIUM BICARBONATE 650 MG TAB PO SCH (21:00)
[2017-09-05 21:04] LABS: CALCIUM-PROTEIN CORRECTED 7.4 MG/DL (8.5-10.1)
[2017-09-05] MEDS ORDERED: SODIUM POLYSTYRENE SULFONATE SUSP 15 GM/60 ML CUP PO ONE (21:30)
[2017-09-05] MEDS ORDERED: CALCIUM GLUCONATE INJ 1 GM in DEXTROSE 5% IN WATER 100ML INJ 100 ML IV ONE ×2 (22:00)
--- NOTE | 2017-09-05 22:50 | HHI.CCPN ---
Subjective Remarks/Hospital Course This is a 72-year-old male that presented to [facility] emergency room with complaints of increasing dizziness since the beginning of this month. Approximately 2 weeks ago he reported to an urgent care center and was diagnosed with benign paroxysmal vertigo and given meclizine Medrol Ebenezer and Ultram. His symptoms progressively worsened and he reported to the emergency room today, after almost falling this morning. The patient discontinued taking meloxicam shortly after the prescription was initiated, stating that it was not helping. He has noted some dark stools. He has noted that he has been bruising easily recently. Patient also complains of acute back pain that started approximately 1 week ago. Laboratory and imaging studies were performed in the ED and the patient was noted to have severe thrombocytopenia with a platelet count of 5 , anemia with a hemoglobin 7.8 . Hematology was consulted and the patient LDH and haptoglobin laboratory studies are pending . CT brain revealed small focal density region possible in the anterior falx concerning for hemorrhage . The patient's medical history is significant for an MO in 2003 at which point he had 2 stents placed. The patient reports he was put on Plavix for several weeks then discontinued, but continues to aspirin. Patient's pertinent medical history also includes hypertension well controlled with Norvasc, Muñoz's esophagus he has had follow-up endoscopies evaluated every 2 years last procedure performed approximately 1 year ago which stated no change and he continues on Nexium. He has a history of prostate cancer and has had the prostate removed and had 38 radiation treatments in 2003. Critical care medicine was consulted. Upon my evaluation the patient was hemodynamically stable BP 104/55, heart rate 91. The patient is planned for stat transfer to [facility], and is pending transfusions of 2 PRBC, 1 of PLTs. Hematology and gastroenterology have been consulted. I have discussed the patient with Dr. Hong. Subjective: 08/30: T-max 99 3. The patient continued to run low-grade fevers through the night. Patient noted to have bands 18%. Will obtain lactic acid, blood cultures pending. The patient received 2 units packed red blood cells and platelets. Repeat CBC with differential pending. MRI pending this a.m.. Small subdural noted on repeat CT brain,neurosurgery consulted. Will repeat CT brain in am. 09/03: The patient was diagnosed with Burkitt's lymphoma of bone marrow, 09/04: PICC line placement started r-EPOCH, and IT MTX. 09/05: Patient had reaction to small dose of Rituxan last night and is developing tumor lysis syndrome with worsening kidney function and was transferred back to ICU for higher level of care Objective Vital Signs Date Time Temp Pulse Resp B/P (MAP) Pulse Ox O2 Delivery O2 Flow Rate FiO2 09/05/17 22:14 94 Nasal Cannula 3.00 09/05/17 21:00 75 25 90/48 09/05/17 19:05 97.7 09/04/17 21:07 21 Intake and Output 09/05/17 09/05/17 09/06/17 08:00 16:00 00:00 Intake Total 240 ml 2346 ml Output Total 900 ml Balance 240 ml 1446 ml Result Diagram: 09/05/17 0420 09/05/172009 Imaging Last Impressions Thoracic Spine CT 08/30/1799 Signed Impressions: Service Date/Time: August 01:37 - CONCLUSION: 1. No fracture, subluxation or other acute abnormality of the thoracic spine. 2. Scoliosis and mild multifocal degenerative changes as above. 3. Complex appearing cystic structures of the upper poles of both kidneys. Comparison to any previous outside facility studies is recommended to confirm chronicity and stability. Contrast enhanced study of the abdomen suggested if felt clinically indicated, preferably MRI if there are no contraindications. Tim Jones MD Lumbar Spine CT 08/30/1799 Signed Impressions: Service Date/Time: August 01:37 - CONCLUSION: 1. No acute fracture or acute subluxation of the lumbar spine. 2. 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 3. Mild spinal and bilateral foraminal stenosis at L4/L5. 4. Mild right and moderate left foraminal stenosis at L5/S1. 5. Benign vertebral body hemangioma of L1. No concerning lumbar spine bone lesion. Tim Jones MD Head CT 08/30/1799 Signed Impressions: Service Date/Time: August 01:37 - CONCLUSION: Small frontal maddy-falcine subdural blood is unchanged. Tim Jones MD Procedures Bone marrow biopsy 08/30/2017. Objective Remarks GENERAL: Well-developed well-nourished male in no distress SKIN: Warm and dry. HEAD: Atraumatic. Normocephalic. EYES: Pupils equal and round. Pupils 2 mm and brisk. No scleral icterus. No injection or drainage. ENT: No nasal bleeding or discharge. Mucous membranes pink and moist. NECK: Trachea midline. No JVD. CARDIOVASCULAR: Normal rate, regular rhythm. RESPIRATORY: No accessory muscle use. Clear to auscultation. Breath sounds equal bilaterally. GASTROINTESTINAL: Abdomen soft, non-tender, obese nondistended. No guarding. Bowel sounds active. MUSCULOSKELETAL: Extremities without clubbing, cyanosis, or edema. No obvious deformities. NEUROLOGICAL: GCS 15. awake and alert. RASS 0. No gross focal/sensory deficits. Follows commands in all 4 extremities. Line: PICC A/P Problem List: (1) Anemia ICD Code: D64.9 - Anemia, unspecified Status: Acute (2) Thrombocytopenia ICD Code: D69.6 - Thrombocytopenia, unspecified Status: Acute (3) GI bleed ICD Code: K92.2 - Gastrointestinal hemorrhage, unspecified Status: Acute (4) Prostate cancer ICD Code: C61 - Malignant neoplasm of prostate Status: Resolved (5) Hypertension ICD Code: I10 - Essential (primary) hypertension Status: Chronic (6) Asthma ICD Code: J45.909 - Unspecified asthma, uncomplicated Status: Chronic (7) History of MO (myocardial infarction) ICD Code: I25.2 - Old myocardial infarction (8) Back pain ICD Code: M54.9 - Dorsalgia, unspecified Status: Acute (9) BMI 30.0-30.9,adult ICD Code: Z68.30 - Body mass index (BMI) 30.0-30.9, adult Status: Chronic Assessment and Plan Plan by systems: Neurologic: Subdural bleed 1 cm Back pain 08/29-CT brain small focal region increased density in anterior falx concerning for hemorrhage 08/30-repeat CT brain-Small 1 cm frontal maddy-falcine subdural blood is unchanged No intervention indicated per neurosurgery 08/29 CT thoracic- No fracture, subluxation or other acute abnormality of the thoracic spine. Scoliosis and mild multifocal degenerative changes. 08/29 CT lumbar- No acute fracture or acute subluxation of the lumbar spine. 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 Mild spinal and bilateral foraminal stenosis at L4/L5. Mild right and moderate left foraminal stenosis at L5/S1. Benign vertebral body hemangioma of L1. No concerning lumbar spine bone lesions. Neuro checks per ICU protocol Avoid sedative type medications Respiratory: Asthma Duo nebs every 2 hours as needed Continue Advair daily, patient's home med and Ventolin as needed Patient's last asthma attack approximately 6 months ago Provide O2 1-4 L/min if needed to maintain O2 saturation greater than 92% Incentive spirometry while awake Cardiovascular: History of MO- S/P stent placement 2 (2003) Coronary artery disease Hypertension maintain mean arterial pressure greater than 65 Hold Norvasc due to hypotension Hold THOM inhibitors due to hyperkalemia Renal: Tumor lysis syndrome Hyperkalemia Hypocalcemia History of prostate cancer status post XRT -Alkalinization of urine with sodium bicarbonate -Aggressive IV hydration -Strict I's and O -Monitor electrolytes -Kayexalate -Calcium gluconate IV -Nephrology consultation appreciated FEN/GI: Muñoz's esophagus GI bleed Zofran for nausea Protonix GI prophylaxis GI - Dr. Hong Heme/ID: Burkitt's lymphoma Anemia Thrombocytopenia Heme-Onc- following Status post initiation of chemotherapy Endocrine: Glucose monitoring per ICU protocol - SSI Prophylaxis: GI Prophylaxis Famotidine DVT Prophylaxis -- SCDs Critical Care: The total critical care time was 35 minutes. Time to perform other separately billable procedures was not included in the critical care time. Problem Qualifiers (1) Anemia: Qualified Codes: D64.9 - Anemia, unspecified (2) Back pain: Qualified Codes: M54.9 - Dorsalgia, unspecified Brnedon Parekh MD Sep 05, 2017 10:50 pm
[2017-09-06] VITALS (18 sets, daily range): BP systolic 92–112; BP diastolic 46–65; PULSE 75–94; RESP 22–25; TEMP 97–98.4; O2SAT 93–97
[2017-09-06] MEDS: SODIUM POLYSTYRENE SULFONATE SUSP 15 GM/60 ML CUP PO SCH ×4 (00:15→17:09)
[2017-09-06] MEDS: SODIUM CHLOR 0.9% 1000 ML INJ 1,000 ML IV SCH ×4 (00:15→23:38)
[2017-09-06] MEDS ORDERED: ALBUMIN 5% INJ 500 ML IV ONE (01:00)
[2017-09-06] MEDS ORDERED: DOPamine 800 MG/500 ML INJ 500 ML IV PRN (01:00)
[2017-09-06] MEDS ORDERED: TERBUTALINE INJ 1 MG/ML AMP SQ PRN ×2 (01:00→10:15)
[2017-09-06] MEDS: DOPamine 400 MG/250 ML INJ 250 ML IV PRN ×2 (01:45→08:12)
[2017-09-06] MEDS: CHLORHEXIDINE GLUCONATE 2 % 1 PACK (2 CLOTHS) TOP SCH (03:56)
[2017-09-06 04:11] LABS: AUTOMATED NEUTROPHIL # 0.7 TH/MM3 (1.8-7.7); BASOPHIL % 2.2 % (0.0-2.0); EOSINOPHIL % 2.3 % (0.0-4.0); LYMPH % 21.7 % (9.0-44.0); LYMPHOCYTE # 0.2 TH/MM3 (1.0-4.8); MEAN CELL VOLUME 90.9 FL (80.0-100.0); MEAN CORPUSCULAR HGB CONC 35.2 % (32.0-36.0); MEAN PLATELET VOLUME 7.3 FL (7.0-11.0); MONO % 3.2 % (0.0-8.0); NEUT % 70.6 % (16.0-70.0); RED BLOOD COUNT 2.18 MIL/MM3 (4.50-5.90); RED CELL DISTRIBUTION WIDTH 14.8 % (11.6-17.2); WHITE BLOOD COUNT 0.9 TH/MM3 (4.0-11.0)
[2017-09-06 04:19] LABS: HEMATOCRIT 19.8 % (39.0-51.0)
[2017-09-06 04:20] LABS: PLATELET COUNT 12 TH/MM3 (150-450)
[2017-09-06 04:33] LABS: CREATININE 2.79 MG/DL (0.60-1.30)
[2017-09-06 04:34] LABS: ALBUMIN 2.6 GM/DL (3.4-5.0); CALCIUM 5.2 MG/DL (8.5-10.1); MAGNESIUM 2.9 MG/DL (1.5-2.5); PHOSPHORUS 14.7 MG/DL (2.5-4.9); TOTAL PROTEIN 5.1 GM/DL (6.4-8.2)
[2017-09-06 04:35] LABS: BICARBONATE 17.1 MEQ/L (21.0-32.0); TOTAL BILIRUBIN ADULT 0.7 MG/DL (0.2-1.0)
[2017-09-06 05:06] LABS: BANDS 10 % (0-6); BASOPHILS 6 % (0-2); BLASTS 2 % (0-0); CORRECTED NUCLEATED RBC 2 /100 WBC (0-0); LYMPHOCYTES 26 % (9-44); NEUTROPHIL # MANUAL DIFF 0.6 TH/MM3 (1.8-7.7); NUCLEATED RED BLOOD CELL 1 (0-0); POLYS (SEG NEUTROPHILS) 54 % (16-70)
[2017-09-06] MEDS: SODIUM BICARBONATE 8.4% INJ 100 MEQ in SODIUM CHLOR 0.45% 1000 ML INJ 1,000 ML IV SCH ×3 (05:39→21:28)
[2017-09-06] MEDS ORDERED: SODIUM CHLOR 0.9% 250 ML INJ 250 ML IV ONE (08:15)
[2017-09-06] MEDS ORDERED: CALCIUM GLUCONATE INJ 1 GM in SODIUM CHLORIDE 0.9% INJ 100 ML IV ONE (09:00)
[2017-09-06] MEDS: SODIUM CHLORIDE 0.9% FLUSH 10 ML FLUSH IVF SCH (09:00)
[2017-09-06] MEDS: RAMIPRIL 5 MG CAP PO SCH (09:00)
[2017-09-06] MEDS: predniSONE 1 MG TAB PO SCH ×2 (09:10→20:40)
[2017-09-06] MEDS: DOCUSATE SODIUM 50 MG/SENNA 8.6 MG TAB PO SCH ×2 (09:10→20:41)
[2017-09-06] MEDS: SODIUM BICARBONATE 650 MG TAB PO SCH (09:11)
[2017-09-06] MEDS: predniSONE 20 MG TAB PO SCH ×2 (09:11→20:40)
[2017-09-06] MEDS: predniSONE 50 MG TAB PO SCH ×2 (09:11→20:40)
[2017-09-06] MEDS: BUDESONIDE-FORMOTEROL 160/4.5 MCG INHALER INH SCH ×2 (09:12→20:42)
[2017-09-06] MEDS: PANTOPRAZOLE SODIUM 40 MG VIAL IV PUSH SCH (09:12)
[2017-09-06] MEDS: SODIUM CHLORIDE 0.9% FLUSH 10 ML FLUSH IV FLUSH SCH ×2 (09:13→20:43)
[2017-09-06] MEDS: GRANISETRON HCL 1 MG/ML VIAL IV SCH ×2 (10:30→22:30)
[2017-09-06] MEDS: DOXORUBICIN IV SCH (10:31)
[2017-09-06] MEDS: [UNRECOGNIZED DRUG - OTHER] IV SCH (10:31)
[2017-09-06] MEDS: VINCRISTINE IV SCH (10:31)
[2017-09-06] MEDS: ETOPOSIDE IV SCH (10:31)
--- NOTE | 2017-09-06 10:44 | HHI.NPPN ---
Subjective General Problems: Edema, Hypotension Renal Failure: Acute History of Present Illness Patient is a 72 year old male with a past medical history of prostate cancer, asthma, gastroesophageal reflux, Muñoz's esophagus,hypertension, new anemia, new thrombocytopenia, rotator cuff injury, and back pain. 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 Patient was receiving Rituxan last night and developed a reaction with low grade temperature, pain, and tremor. Plan to transfer patient to intensive care unit as patient is at risk for fluid overload with blood transfusions and acute kidney injury. Nephrology is consulted for acute kidney injury with creatinine of 2.44 with a admission creatinine of 0.99. HGB is low at 7.2, Plt of 27, NA 148, CO2 14.5. Patient is resting comfortably now with his only complaint is that is dizzy with ambulation. Additional Remarks Patient denies any shortness of breath. Is now on Dopamine for blood pressure support. Edema is noted. (Janet Ribeiro) Review of Systems Respiratory Respiratory Remarks Denies any SOB (Janet Ribeiro) Cardiovascular Cardiac Remarks Denies any CP (Janet Ribeiro) Gastrointestinal GI Remarks Denies any abdominal pain (Janet Ribeiro) Objective Data Data 09/06/17 09/07/17 19:00 07:00 Intake Total 150 ml Balance 150 ml IV Total 140 ml Blood Product IV Normal Saline Flush 10 ml Vital Signs Date Time Temp Pulse Resp B/P (MAP) Pulse Ox O2 Delivery O2 Flow Rate FiO2 09/06/17 10:08 97.8 83 24 94/52 95 09/06/17 09:54 98.4 94 25 102/56 95 09/06/17 07:43 97.8 84 25 92/50 (64) 95 09/06/17 07:42 95 Nasal Cannula 5.00 09/06/17 07:42 84 09/06/17 05:00 89 98/47 09/06/17 04:27 84 89/46 09/06/17 03:00 95 Nasal Cannula 5.00 09/06/17 03:00 98.1 89 25 104/46 (65) 95 09/06/17 02:34 87 91/44 09/06/17 02:00 79 86/47 09/06/17 01:45 71 85/46 09/05/17 23:00 74 09/05/17 23:00 97.8 81 25 92/52 (65) 94 09/05/17 23:00 94 Nasal Cannula 3.00 09/05/17 22:14 94 Nasal Cannula 3.00 09/05/17 21:00 75 25 90/48 94 09/05/17 20:00 76 22 102/51 93 09/05/17 19:15 78 25 86/48 93 09/05/17 19:05 97.7 76 25 90/52 93 09/05/17 19:00 97.7 76 25 90/52 (65) 92 09/05/17 19:00 76 09/05/17 19:00 93 Nasal Cannula 3.00 09/05/17 18:53 97.6 78 24 92/52 96 09/05/17 18:15 97.4 81 24 90/53 96 09/05/17 18:00 80 09/05/17 17:32 97.8 88 24 116/74 (88) 96 09/05/17 17:00 97.5 80 26 91/51 (64) 95 09/05/17 15:03 80 28 95 09/05/17 13:34 78 09/05/17 13:30 75 28 95 09/05/17 12:58 97.8 80 24 105/52 (69) 97 09/05/17 12:00 97.8 74 24 106/52 (70) 96 (Janet Ribeiro) -: 09/06/17 0340 09/06/17 0340 Imaging Last Impressions Chest X-Ray 09/05/17 0000 Signed Impressions: Service Date/Time: Tuesday, September 05, 2017 01:50 - CONCLUSION: 1. Right PICC line in superior vena cava. Subsegmental basilar airspace disease. No effusion or pneumothorax. Cory Camarena MD PICC Line Insertion 09/04/17 0600 Signed Impressions: Service Date/Time: Monday, September 04, 2017 15:12 - CONCLUSION: 1. Uncomplicated central venous Power PICC line placement. 2. The PICC line can be used immediately. Santy Burciaga Jr., MD Lumbar Puncture Fluoroscopy 09/04/17 0000 Signed Impressions: Service Date/Time: Monday, September 04, 2017 15:12 - CONCLUSION: Uncomplicated fluoroscopically guided lumbar puncture with pressures as above. Intrathecal methotrexate was administered. Santy Burciaga Jr., MD Chest CT 09/01/17 0000 Signed Impressions: Service Date/Time: Friday, September 01, 2017 16:48 - CONCLUSION: 1. No definite evidence for metastatic disease to the thorax. 2. 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 3. Scattered atelectasis and scarring in the lungs. 4. Moderate coronary calcifications. Cory Camarena MD Abdomen/Pelvis CT 09/01/17 0000 Signed Impressions: Service Date/Time: Friday, September 01, 2017 16:48 - CONCLUSION: 1. Post surgical changes with findings of cholecystectomy and prostatectomy. 2. Scattered diverticular disease of the colon without diverticulitis. 3. Lobulated cyst in the upper poles of both kidneys with some calcification on the left. 4. Retroperitoneal fat herniates through the left hemidiaphragm into the posterior left lung base. 5. No acute intraperitoneal or pelvic process to explain current clinical symptoms Gavin Lynn MD Bone Biopsy CT 08/30/17 1535 Signed Impressions: Service Date/Time: August 16:19 - CONCLUSION: 1. Uncomplicated CT guided bone marrow aspirate. 2. Uncomplicated CT guided bone marrow biopsy. Srikanth Ambrosio MD Thoracic Spine CT 08/30/1799 Signed Impressions: Service Date/Time: August 01:37 - CONCLUSION: 1. No fracture, subluxation or other acute abnormality of the thoracic spine. 2. Scoliosis and mild multifocal degenerative changes as above. 3. Complex appearing cystic structures of the upper poles of both kidneys. Comparison to any previous outside facility studies is recommended to confirm chronicity and stability. Contrast enhanced study of the abdomen suggested if felt clinically indicated, preferably MRI if there are no contraindications. Tim Jones MD Lumbar Spine CT 08/30/1799 Signed Impressions: Service Date/Time: August 01:37 - CONCLUSION: 1. No acute fracture or acute subluxation of the lumbar spine. 2. 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 3. Mild spinal and bilateral foraminal stenosis at L4/L5. 4. Mild right and moderate left foraminal stenosis at L5/S1. 5. Benign vertebral body hemangioma of L1. No concerning lumbar spine bone lesion. Tim Jones MD Head CT 08/30/17 0100 Signed Impressions: Service Date/Time: August 01:37 - CONCLUSION: Small frontal maddy-falcine subdural blood is unchanged. Tim Jones MD Carotid Artery Ultrasound 08/30/17 0000 Signed Impressions: Service Date/Time: August 07:52 - CONCLUSION: 1. Diffuse calcified plaque throughout carotid arteries bilaterally with resultant moderate, 50-69%%, stenosis of the internal carotid arteries bilaterally and likely moderate stenosis of the left common carotid artery. 2. Antegrade vertebral artery flow bilaterally. Lopez Taylor MD Brain MRI 08/30/17 0000 Signed Impressions: Service Date/Time: August 09:27 - CONCLUSION: 1. Right frontal parafalcine abnormality on CT exam corresponds to a small meningioma. No definitive intra-or extra-axial hemorrhage. Lopez Taylor MD (Janet Ribeiro) Physical Exam General Appearance: No Acute Distress, Comfortable (Janet Ribeiro) Throat Throat Exam: Oral Mucosa [place] & Moist (Janet Ribeiro) Pulmonary Resp Exam: Breath Sounds Equal, No Distress Resp Remarks O2 NC 5 liters (Janet Ribeiro) Cardiology CV Exam: Regular, Normal Sinus Rhythm (Janet Ribeiro) Gastrointestinal/Abdomen GI Exam: Soft, Non-Tender, Distended (Janet Ribeiro) Genitourinary Exam: Flank Non-Tender (Janet Ribeiro) Integumentary Skin Exam: Clear, Warm (Janet Ribeiro) Extremeties Extremities Exam: Moderate Edema (Jaent Ribeiro) Neurologic Neuro Exam: Alert, Awake, Oriented (Janet Ribeiro) Psychiatric Psych Exam: Appropriate Responses (Janet Ribeiro) Assessment/Plan Problem List: (1) Acute kidney injury ICD Codes: N17.9 - Acute kidney failure, unspecified Plan: Acute kidney injury with creatinine of 2.44 when consulted. Acute kidney injury most likely related to tumor lysis. On admission creatinine of 0.99. CT of abdomen on the with kidney with normal in size and shape. There is no mass, stone or hydronephrosis. Lobulated cysts in the upper poles of both kidneys with some benign-appearing calcification on the left Plan Maintain Strict I+O Will monitor renal panel and urinary output Avoid nephrotoxins. HCO3 low Bicarbonate gtt infusing Anemia with PRBC infusing Creatinine at 2.44 with good urinary output. Hyperkalemia noted. Phosphorus elevated at 14.7 binders added Hyperkalemia with Kayexalate every 6 hours. Calcium gluconate and sodium bicarbonate ordered. Tolerated Rituxan infusion yesterday repeat today Will treat hyperkalemia no dialysis planned yet discussed with Dr. Mendez . (2) B-cell lymphoma ICD Codes: C85.10 - Unspecified B-cell lymphoma, unspecified site Status: Acute Plan: Oncology managing (3) Anemia ICD Codes: D64.9 - Anemia, unspecified Status: Acute Plan: Plan to transfuse (Janet Ribeiro) Problem List: (1) Acute kidney injury ICD Codes: N17.9 - Acute kidney failure, unspecified Plan: Acute kidney injury with creatinine of 2.44 when consulted. Acute kidney injury most likely related to tumor lysis. On admission creatinine of 0.99. CT of abdomen on the with kidney with normal in size and shape. There is no mass, stone or hydronephrosis. Lobulated cysts in the upper poles of both kidneys with some benign-appearing calcification on the left Plan Maintain Strict I+O Will monitor renal panel and urinary output Avoid nephrotoxins. HCO3 low Bicarbonate gtt infusing Anemia with PRBC infusing Creatinine at 2.44 with good urinary output. Hyperkalemia noted. Phosphorus elevated at 14.7 binders added Hyperkalemia with Kayexalate every 6 hours. Calcium gluconate and sodium bicarbonate ordered. Tolerated Rituxan infusion yesterday repeat today Will treat hyperkalemia no dialysis planned yet discussed with Dr. Mendez . Patient seen and examined, agree with above. Patient has LUCA , most likely with Tumor lysis. Follow urine out put and BMP. No urgent need for Dialysis at present. (2) B-cell lymphoma ICD Codes: C85.10 - Unspecified B-cell lymphoma, unspecified site Status: Acute Plan: Oncology managing (3) Anemia ICD Codes: D64.9 - Anemia, unspecified Status: Acute Plan: Plan to transfuse (Demi Mendez MD) Problem Qualifiers (1) Anemia: Qualified Codes: D64.9 - Anemia, unspecified Janet Ribeiro Sep 06, 2017 10:44 Demi Mendez MD Sep 06, 2017 19:00
[2017-09-06] MEDS ORDERED: SODIUM BICARBONATE 8.4% INJ 50 MEQ/50 ML SYR IV PUSH ONE (10:45)
--- NOTE | 2017-09-06 10:57 | PD.ONC.PN ---
Subjective Subjective Remarks Afebrile overnight. Patient resting in bed in CVICU. He is still dyspneic. Remains on pressor support. Objective Data Date Time Temp Pulse Resp B/P (MAP) Pulse Ox O2 Delivery O2 Flow Rate FiO2 09/06/17 10:08 97.8 83 24 94/52 95 09/06/17 09:54 98.4 94 25 102/56 95 09/06/17 07:43 97.8 84 25 92/50 (64) 95 09/06/17 07:42 95 Nasal Cannula 5.00 09/06/17 07:42 84 09/06/17 05:00 89 98/47 09/06/17 04:27 84 89/46 09/06/17 03:00 95 Nasal Cannula 5.00 09/06/17 03:00 98.1 89 25 104/46 (65) 95 09/06/17 02:34 87 91/44 09/06/17 02:00 79 86/47 09/06/17 01:45 71 85/46 09/05/17 23:00 74 09/05/17 23:00 97.8 81 25 92/52 (65) 94 09/05/17 23:00 94 Nasal Cannula 3.00 09/05/17 22:14 94 Nasal Cannula 3.00 09/05/17 21:00 75 25 90/48 94 09/05/17 20:00 76 22 102/51 93 09/05/17 19:15 78 25 86/48 93 09/05/17 19:05 97.7 76 25 90/52 93 09/05/17 19:00 97.7 76 25 90/52 (65) 92 09/05/17 19:00 76 09/05/17 19:00 93 Nasal Cannula 3.00 09/05/17 18:53 97.6 78 24 92/52 96 09/05/17 18:15 97.4 81 24 90/53 96 09/05/17 18:00 80 09/05/17 17:32 97.8 88 24 116/74 (88) 96 09/05/17 17:00 97.5 80 26 91/51 (64) 95 09/05/17 15:03 80 28 95 09/05/17 13:34 78 09/05/17 13:30 75 28 95 09/05/17 12:58 97.8 80 24 105/52 (69) 97 09/05/17 12:00 97.8 74 24 106/52 (70) 96 09/06/17 09/06/17 09/06/17 06:59 14:59 22:59 Intake Total 4300 ml 150 ml Output Total 450 ml Balance 3850 ml 150 ml Result Diagram: 09/06/17 0340 09/06/17 0340 Laboratory Results Laboratory Tests Test 09/05/17 20:10 09/06/17 03:40 Blood Urea Nitrogen 86 MG/DL 105 MG/DL Creatinine 2.80 MG/DL 2.79 MG/DL Random Glucose 220 MG/DL 245 MG/DL Total Protein 4.9 GM/DL 5.1 GM/DL Albumin 2.3 GM/DL 2.6 GM/DL Calcium Level 6.3 MG/DL 5.2 MG/DL Magnesium Level 2.7 MG/DL 2.9 MG/DL Alkaline Phosphatase 182 U/L 156 U/L Aspartate Amino Transf (AST/SGOT) 220 U/L 326 U/L Alanine Aminotransferase (ALT/SGPT) 51 U/L 50 U/L Total Bilirubin 0.8 MG/DL 0.7 MG/DL Sodium Level 142 MEQ/L 142 MEQ/L Potassium Level 5.9 MEQ/L 5.9 MEQ/L Chloride Level 109 MEQ/L 109 MEQ/L Carbon Dioxide Level 16.6 MEQ/L 17.1 MEQ/L Anion Gap 16 MEQ/L 16 MEQ/L Estimat Glomerular Filtration Rate 22 ML/MIN 22 ML/MIN Protein Corrected Calcium 7.4 MG/DL 6.0 MG/DL White Blood Count 0.9 TH/MM3 Red Blood Count 2.18 MIL/MM3 Hemoglobin 7.0 GM/DL Hematocrit 19.8 % Mean Corpuscular Volume 90.9 FL Mean Corpuscular Hemoglobin 32.0 PG Mean Corpuscular Hemoglobin Concent 35.2 % Red Cell Distribution Width 14.8 % Platelet Count 12 TH/MM3 Mean Platelet Volume 7.3 FL Neutrophils (%) (Auto) 70.6 % Lymphocytes (%) (Auto) 21.7 % Monocytes (%) (Auto) 3.2 % Eosinophils (%) (Auto) 2.3 % Basophils (%) (Auto) 2.2 % Neutrophils # (Auto) 0.7 TH/MM3 Lymphocytes # (Auto) 0.2 TH/MM3 Monocytes # (Auto) 0.0 TH/MM3 Eosinophils # (Auto) 0.0 TH/MM3 Basophils # (Auto) 0.0 TH/MM3 CBC Comment AUTO DIFF Differential Total Cells Counted 50 Neutrophils % (Manual) 54 % Band Neutrophils % 10 % Lymphocytes % 26 % Eosinophils % 2 % Basophils % 6 % Neutrophils # (Manual) 0.6 TH/MM3 Nucleated Red Blood Cells 2 /100 WBC Differential Comment FINAL DIFF MANUAL Blastocytes 2 % Platelet Estimate LOW Platelet Morphology Comment NORMAL Red Cell Morphology Comment NORMAL Phosphorus Level 14.7 MG/DL Administered Medications Medications (Trade) Dose Ordered Sig/Robert Route PRN Reason Start Time Stop Time Status Last Admin Dose Admin Sodium Chloride 1,000 ml @ 100 mls/hr Q10H IV 08/29/17 16:00 09/05/17 05:44 Sodium Chloride (NS Flush) 2 ml UNSCH PRN IV FLUSH FLUSH AFTER USING IV ACCESS 08/29/17 15:45 09/03/17 00:37 Sodium Chloride (NS Flush) 2 ml BID IV FLUSH 08/29/17 21:00 09/06/17 09:13 Pantoprazole Sodium (Protonix Inj) 40 mg DAILY IV PUSH 08/30/17 09:00 09/06/17 09:12 Albuterol/ Ipratropium (Duoneb Neb) 1 ampule Q2HR NEB PRN INH WHEEZING 08/29/17 16:00 09/04/17 23:32 Chlorhexidine Gluconate (Chlorhexidine 2% Cloth) Taper DAILY@04 TOP 08/30/17 04:00 08/26/18 03:59 09/06/17 03:56 Senna/Docusate Sodium (Madina-Colace) 1 tab BID PO 08/29/17 21:00 09/06/17 09:10 Albuterol Sulfate (Proair Hfa Inh) 2 puff Q6H PRN INH SHORTNESS OF BREATH 08/29/17 18:00 08/30/17 10:20 Amlodipine Besylate (Norvasc) 10 mg DAILY PO 08/30/17 09:00 Future Hold 09/05/17 10:12 Budesonide/ Formoterol Fumarate (Symbicort 160-4.5 Mcg Inh) 2 puff BID INH 08/29/17 21:00 4/26/18 09:12 Ramipril (Altace) 10 mg DAILY PO 08/30/17 14:00 09/05/17 10:12 Morphine Sulfate (Morphine Inj) 4 mg Q4H PRN IV PUSH Pain 7 to 10 09/01/17 16:00 09/04/17 22:55 Allopurinol (Zyloprim) 300 mg BID PO 09/04/17 21:00 Future Hold 09/04/17 20:56 Granisetron HCl (Kytril Inj) 1 mg Q24H IV 09/04/17 22:30 09/08/17 22:31 09/06/17 10:30 Doxorubicin HCl 20.5 mg/ Vincristine Sulfate 0.82 mg/ Etoposide 102.5 mg/Sodium Chloride 516.195 ml @ 21.508 mls/hr Q24H IV 09/04/17 23:00 09/08/17 22:59 09/06/17 10:31 Prednisone (Deltasone) 100 mg BID PO 09/04/17 22:30 09/09/17 09:01 09/06/17 09:11 Prednisone (Deltasone) 20 mg BID PO 09/04/17 22:30 09/09/17 09:01 09/06/17 09:11 Prednisone (Deltasone) 3 mg BID PO 09/04/17 22:30 09/09/17 09:01 09/06/17 09:10 Sodium Chloride (NS Flush) DAILY IVF 09/05/17 09:00 09/04/17 22:55 Heparin Sodium (Porcine) (Heparin Central Flush) DAILY IV FLUSH 09/05/17 09:00 09/06/17 09:13 Sodium Bicarbonate 100 meq/Sodium Chloride 1,100 ml @ 125 mls/hr Q8H48M IV 09/05/17 20:00 09/06/17 07:39 Sodium Polystyrene Sulfonate (Kayexalate Liq) 15 gm Q6H PO 09/06/17 00:15 09/06/17 18:16 09/06/17 06:07 Dopamine HCl/ Dextrose 250 ml @ 0 mls/hr TITRATE PRN IV Blood Pressure Management 09/06/17 01:30 09/06/17 08:12 Sodium Chloride 250 ml @ 15 mls/hr ONCE ONCE IV 09/06/17 08:15 09/07/17 00:54 09/06/17 08:15 Objective Remarks GENERAL: Elderly male sitting up in bed in nad. SKIN: Warm and dry. HEAD: Normocephalic. EYES: No injection or drainage. NECK: Supple, trachea midline. CARDIOVASCULAR: Regular rate and rhythm RESPIRATORY: occasional rhonchi. On 5L O2 via NC GASTROINTESTINAL: Abdomen soft, non-tender, nondistended. EXTREMITIES: No cyanosis NEUROLOGICAL: awake and alert. normal speech. moving all extremities. 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 ++also has bone pain, back pain, elevated LDH, as well as the sweats that suggests a more systemic manifestation of bone marrow disorder. ++ Nucleated red cells seen on peripheral smear. no acute blasts. 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 09/04: PICC line placement today, start R-EPOCH, give IT MTX. 09/05: Rituxan infusion complete. patient in TLS. transferred to ICU. entry level drafter consulted. 09/06: start EPOCH, window closing as patient is now leukopenic. give blood and platelets. (2) Pancytopenia ICD Codes: D61.818 - Other pancytopenia (3) Tumor lysis syndrome ICD Codes: E88.3 - Tumor lysis syndrome Assessment 72y/o male with anemia + thrombocytopenia. history of prostate cancer, status post prostatectomy, coronary artery disease, s/p stent placement. 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 Plan 1. start EPOCH today, will monitor renal function, electrolytes and CBC and consider decreasing to two day infusion 2. continue allopurinol 3. dose with calcium gluconate. 4. monitor CBC, CMP, magnesium, phosphorus, uric acid. Attending Statement The exam, history, and the medical decision-making described in the above note were completed with the assistance of the mid-level provider. I reviewed and agree with the findings presented. I attest that I had a [id number] encounter with the patient on the same day, and personally performed and documented my assessment and findings in the medical record. Pt seen and examined in AM. Discussed with his nurse and discussed with Javascript Developer. Noted events overnight. Reviewed the MRI results showing NO GROUNDS FOREMAN bleed, noted was a hemangioma. On pressors, no fevers but neutropenic, discussed concern for sepsis in addition to tumor lysis. Cultures drawn abx started. Continue hydration, correct electrolytes, pending to decision from nephrology to dialyze due to hyperkalemia not responding to kayexalate. Chemo continue for the aggressive Burkitt's lymphoma. High risk for tumor lysis despite precaution of hydration and rasburicase. Laurita Davila Sep 06, 2017 10:57 Shahla Duron MD Sep 06, 2017 16:13
[2017-09-06] MEDS ORDERED: VANCOMYCIN INJ 1,000 MG in SODIUM CHLOR 0.9% 250 ML INJ 250 ML IV ONE (11:00)
--- NOTE | 2017-09-06 11:04 | HHI.CCPN ---
Subjective Remarks/Hospital Course This is a 72-year-old male that presented to [facility] emergency room with complaints of increasing dizziness since the beginning of this month. Approximately 2 weeks ago he reported to an urgent care center and was diagnosed with benign paroxysmal vertigo and given meclizine Medrol Ebenezer and Ultram. His symptoms progressively worsened and he reported to the emergency room today, after almost falling this morning. The patient discontinued taking meloxicam shortly after the prescription was initiated, stating that it was not helping. He has noted some dark stools. He has noted that he has been bruising easily recently. Patient also complains of acute back pain that started approximately 1 week ago. Laboratory and imaging studies were performed in the ED and the patient was noted to have severe thrombocytopenia with a platelet count of 5 , anemia with a hemoglobin 7.8 . Hematology was consulted and the patient LDH and haptoglobin laboratory studies are pending . CT brain revealed small focal density region possible in the anterior falx concerning for hemorrhage . The patient's medical history is significant for an MO in 2003 at which point he had 2 stents placed. The patient reports he was put on Plavix for several weeks then discontinued, but continues to aspirin. Patient's pertinent medical history also includes hypertension well controlled with Norvasc, Muñoz's esophagus he has had follow-up endoscopies evaluated every 2 years last procedure performed approximately 1 year ago which stated no change and he continues on Nexium. He has a history of prostate cancer and has had the prostate removed and had 38 radiation treatments in 2003. Critical care medicine was consulted. Upon my evaluation the patient was hemodynamically stable BP 104/55, heart rate 91. The patient is planned for stat transfer to [facility], and is pending transfusions of 2 PRBC, 1 of PLTs. Hematology and gastroenterology have been consulted. I have discussed the patient with Dr. Hong. Subjective: 08/30: T-max 99 3. The patient continued to run low-grade fevers through the night. Patient noted to have bands 18%. Will obtain lactic acid, blood cultures pending. The patient received 2 units packed red blood cells and platelets. Repeat CBC with differential pending. MRI pending this a.m.. Small subdural noted on repeat CT brain,neurosurgery consulted. Will repeat CT brain in am. 09/03: The patient was diagnosed with Burkitt's lymphoma of bone marrow, 09/04: PICC line placement started r-EPOCH, and IT MTX. 09/05: Patient had reaction to small dose of Rituxan last night and is developing tumor lysis syndrome with worsening kidney function and was transferred back to ICU for higher level of care 09/06: Over the night patient started on dopamine, currently at 13, with map above 65. Patient feels about the same, denies chest pain, difficulty breathing , cough, abdominal pain. No bowel movement. On 5 L nasal cannula with O2 sat above 95%. present at bedside. Objective Vital Signs Date Time Temp Pulse Resp B/P (MAP) Pulse Ox O2 Delivery O2 Flow Rate FiO2 09/06/17 10:08 97.8 83 24 94/52 95 09/06/17 07:42 Nasal Cannula 5.00 09/04/17 21:07 21 Intake and Output 09/06/17 09/06/17 09/07/17 08:00 16:00 00:00 Intake Total 3190 ml 150 ml Output Total 450 ml Balance 2740 ml 150 ml Result Diagram: 09/06/17 0340 09/06/17 034 Imaging Last Impressions Thoracic Spine CT 08/30/1799 Signed Impressions: Service Date/Time: August 01:37 - CONCLUSION: 1. No fracture, subluxation or other acute abnormality of the thoracic spine. 2. Scoliosis and mild multifocal degenerative changes as above. 3. Complex appearing cystic structures of the upper poles of both kidneys. Comparison to any previous outside facility studies is recommended to confirm chronicity and stability. Contrast enhanced study of the abdomen suggested if felt clinically indicated, preferably MRI if there are no contraindications. Tim Jones MD Lumbar Spine CT 08/30/1799 Signed Impressions: Service Date/Time: August 01:37 - CONCLUSION: 1. No acute fracture or acute subluxation of the lumbar spine. 2. 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 3. Mild spinal and bilateral foraminal stenosis at L4/L5. 4. Mild right and moderate left foraminal stenosis at L5/S1. 5. Benign vertebral body hemangioma of L1. No concerning lumbar spine bone lesion. Tim Jones MD Head CT 4/19/18 0100 Signed Impressions: Service Date/Time: August 01:37 - CONCLUSION: Small frontal maddy-falcine subdural blood is unchanged. Tim Jones MD Procedures Bone marrow biopsy 08/30/2017. Objective Remarks GENERAL: Elderly gentleman, awake, ill-appearing. SKIN: Warm and dry. HEAD: Atraumatic. Normocephalic. EYES: Pupils equal and reactive. Sclerae are anicteric. No injection or drainage. ENT: No nasal bleeding or discharge. Mucous membranes are dry. No thrush. NECK: Trachea midline. No JVD. No carotid bruit. CARDIOVASCULAR: Regular heart sounds, systolic ejection murmur at the apex and left sternal border. RESPIRATORY: Clear bilateral, no crackles, decreased at bases. No wheezes. GASTROINTESTINAL: Abdomen soft, non-tender, obese. No guarding. Bowel sounds active. MUSCULOSKELETAL: Extremities without clubbing, cyanosis, or edema. No obvious deformities. PICC line over the right upper extremity, site is clean. NEUROLOGICAL: Awake, alert and oriented 3 moves all extremities, motor 5 out of 5. Line: PICC A/P Problem List: (1) Anemia ICD Code: D64.9 - Anemia, unspecified Status: Acute (2) Thrombocytopenia ICD Code: D69.6 - Thrombocytopenia, unspecified Status: Acute (3) GI bleed ICD Code: K92.2 - Gastrointestinal hemorrhage, unspecified Status: Acute (4) Prostate cancer ICD Code: C61 - Malignant neoplasm of prostate Status: Resolved (5) Hypertension ICD Code: I10 - Essential (primary) hypertension Status: Chronic (6) Asthma ICD Code: J45.909 - Unspecified asthma, uncomplicated Status: Chronic (7) History of MO (myocardial infarction) ICD Code: I25.2 - Old myocardial infarction (8) Back pain ICD Code: M54.9 - Dorsalgia, unspecified Status: Acute (9) BMI 30.0-30.9,adult ICD Code: Z68.30 - Body mass index (BMI) 30.0-30.9, adult Status: Chronic Assessment and Plan 1. Circulatory shock, requiring significant amount of dopamine. Etiology of the shock at this time it is unclear what workup is in progress 2. Tumor lysis syndrome 3. Hyperkalemia 4. LUCA 5. Metabolic acidosis 6. Pancytopenia 7. Burkitt's lymphoma status post chemo 8. Small subdural hematoma 9. History of CAD 10. History of prostate cancer status post XRT 11. Muñoz's esophagus 12. GI bleed 1. Continue dopamine and start norepinephrine infusion to keep map above 65. Most norepinephrine he started try to wean off dopamine 2. Patient receiving multiple blood products ordered by hematology 3. Transfuse additional platelets 4. Send blood cultures UA and urine culture 5. Check lactic acid and venous blood gas 6. Start vancomycin and aztreonam. Patient is allergic to penicillin with anaphylactic reaction in the past 7. Continue bicarbonate infusion 8. Allopurinol/rasburicase per hematology 9. Patient received medical management for hyperkalemia. Repeat potassium stat 10. Nephrology to decide if CRRT is needed 11. Hold antihypertensives 12. Hold antiplatelets 13. Patient will have increased pressor requirements will start stress dose steroids 14. Supplemental O2 to keep SPO2 above 92% 15. Bronchodilators 16. GI prophylaxis 17. Echocardiogram Patient is immunosuppressed and critically ill with circulatory shock, LUCA, TLS , hyperkalemia and he is at very high risk for further deterioration. Discussed in detail with patient and patient's at bedside. I spent 34 minutes of critical care time excluding procedures managing pressors , fluids, antibiotics, reviewing data, ordering tests, discussing with nephrology [employer], nursing and patient at bedside. Addendum: Patient was reassessed multiple times throughout the day, currently off dopamine on norepinephrine at 6 mcg/min. potassium remains elevated at 5.8, managed by nephrology with bicarb, calcium, and Kayexalate. No plans for HD noted. We will order a repeat potassium at 8 PM. Patient remains critically ill. Discussed multiple times throughout the day with and daughter at bedside. Problem Qualifiers (1) Anemia: Qualified Codes: D64.9 - Anemia, unspecified (2) Back pain: Qualified Codes: M54.9 - Dorsalgia, unspecified Felipe Larose MD Sep 06, 2017 11:04
[2017-09-06] MEDS: NOREPINEPHRINE-DEXTROSE DRIP 250 ML IV PRN (12:43)
[2017-09-06 12:58] LABS: ALBUMIN 2.3 GM/DL (3.4-5.0); BICARBONATE 16.4 MEQ/L (21.0-32.0); CALCIUM 5.4 MG/DL (8.5-10.1); CREATININE 3.12 MG/DL (0.60-1.30); MAGNESIUM 2.8 MG/DL (1.5-2.5); PHOSPHORUS 16.5 MG/DL (2.5-4.9); TOTAL BILIRUBIN ADULT 1.1 MG/DL (0.2-1.0)
[2017-09-06 12:59] LABS: TOTAL PROTEIN 4.7 GM/DL (6.4-8.2)
[2017-09-06 13:01] LABS: CALCIUM-PROTEIN CORRECTED 6.4 MG/DL (8.5-10.1)
[2017-09-06] MEDS: CALCIUM ACETATE 667 MG CAP PO SCH ×2 (13:09→17:07)
[2017-09-06 13:43] LABS: BILIRUBIN, URINE NEG (NEG); BLOOD, URINE NEG (NEG); GLUCOSE,URINE NEG (NEG); KETONE, URINE NEG (NEG); NITRITE,URINE NEG (NEG); URINE COLOR LIGHT-YELLOW (YELLW/STRAW); URINE LEUKOCYTE ESTERASE NEG (NEG)
[2017-09-06] MEDS: AZTREONAM INJ 1,000 MG in SODIUM CHLORIDE 0.9% INJ 100 ML IV SCH ×2 (14:28→19:24)
--- NOTE | 2017-09-06 15:34 | ECHRPT ---
Indication: Cardiomyopathy CONCLUSIONS The left ventricular systolic function is normal with an estimated ejection fraction in the range of 55-60%. Moderate concentric left ventricular hypertrophy. Normal left ventricular size. Mitral annular calcification is present. There is trace tricuspid valve regurgitation. The estimated pulmonary arterial pressure is 32.3 mmHg. Trivial pulmonary valve regurgitation. BP: 98 / 47 HR: 89 Rhythm: Sinus MEASUREMENTS (Male / Female) Normal Values Technical Quality:Fair 2D ECHO LV Diastolic Diameter PLAX 5.3 cm 4.2 - 5.9 / 3.9 - 5.3 cm LV Systolic Diameter PLAX 3.8 cm IVS Diastolic Thickness 1.6 cm 0.6 - 1.0 / 0.6 - 0.9 cm LVPW Diastolic Thickness 1.6 cm 0.6 - 1.0 / 0.6 - 0.9 cm LV Relative Wall Thickness 0.6 RV Internal Dim ED PLAX 4.0 cm LVOT Diameter 2.2 cm LA Systolic Diameter LX 3.9 cm 3.0 - 4.0 / 2.7 - 3.8 cm M-MODE Aortic Root Diameter MM 4.0 cm LA Systolic Diameter MM 4.2 cm LA Ao Ratio MM 1.1 AV Cusp Separation MM 2.5 cm DOPPLER AV Peak Velocity 222.0 cm/s AV Peak Gradient 19.7 mmHg AV Mean Gradient 10.0 mmHg AV Velocity Time Integral 35.8 cm LVOT Peak Velocity 153.0 cm/s LVOT Peak Gradient 9.4 mmHg LVOT Velocity Time Integral 24.9 cm LVOT Cardiac Index 4077.0 cm/minm AV Area Cont Eq vti 2.6 cm AV Area Cont Eq pk 2.6 cm MV Area PHT 2.6 cm Mitral E Point Velocity 89.3 cm/s Mitral A Point Velocity 99.2 cm/s Mitral E to A Ratio 0.9 LV E' Lateral Velocity 12.7 cm/s Mitral E to LV E' Lateral Ratio 7.0 LV E' Septal Velocity 7.0 cm/s Mitral E to LV E' Septal Ratio 12.7 TR Peak Velocity 236.0 cm/s TR Peak Gradient 22.3 mmHg Right Atrial Pressure 10.0 mmHg Pulmonary Artery Systolic Pressu 32.3 mmHg Right Ventricular Systolic Press 32.3 mmHg FINDINGS LEFT VENTRICLE The left ventricular systolic function is normal with an estimated ejection fraction in the range of 55-60%. Moderate concentric left ventricular hypertrophy. Normal left ventricular size. RIGHT VENTRICLE Normal right ventricular size and systolic function. LEFT ATRIUM The left atrial size is normal. RIGHT ATRIUM The right atrial size is normal. ATRIAL SEPTUM Normal atrial septal thickness without atrial level shunting by limited color doppler interrogation. AORTA The aortic root and proximal ascending aorta are normal in size on limited imaging. MITRAL VALVE Mitral annular calcification is present. AORTIC VALVE Trileaflet aortic valve. No aortic valve stenosis or regurgitation. TRICUSPID VALVE Structurally normal tricuspid valve. There is trace tricuspid valve regurgitation. The estimated pulmonary arterial pressure is 32.3 mmHg. PULMONARY VALVE Trivial pulmonary valve regurgitation. VESSELS The inferior vena cava is normal in size. PERICARDIUM No pericardial effusion. New Chaudhary MD, FACC (Electronically Signed) Final Date:06 September 2017 15:32
[2017-09-07] VITALS (14 sets, daily range): BP systolic 93–116; BP diastolic 57–72; PULSE 76–80; RESP 20–24; TEMP 97–97.9; O2SAT 94–97
[2017-09-07] MEDS: NOREPINEPHRINE-DEXTROSE DRIP 250 ML IV PRN ×2 (00:08→09:12)
[2017-09-07] MEDS: MORPHINE SULFATE 2 MG/ML SYRINGE IV PUSH PRN ×2 (00:09→06:49)
[2017-09-07] MEDS: ONDANSETRON HCL 4 MG/2 ML VIAL IV PUSH PRN ×2 (00:12→17:29)
[2017-09-07] MEDS: SODIUM CHLORIDE 0.9% FLUSH 10 ML FLUSH IVF PRN (00:12)
[2017-09-07 03:12] LABS: BLOOD UREA NITROGEN 137 MG/DL (7-18); CALCIUM LESS THAN 5.0 MG/DL (8.5-10.1); CREATININE 3.14 MG/DL (0.60-1.30); GLOMERULAR FILTRATION RATE 20 ML/MIN (>89); GLUCOSE,RANDOM 286 MG/DL (74-106)
[2017-09-07 03:13] LABS: BICARBONATE 17.3 MEQ/L (21.0-32.0); CHLORIDE 103 MEQ/L (98-107); SODIUM (NA) 142 MEQ/L (136-145)
[2017-09-07 03:50] LABS: TOTAL PROTEIN 4.8 GM/DL (6.4-8.2)
[2017-09-07 03:51] LABS: CALCIUM-PROTEIN CORRECTED 5.9 MG/DL (8.5-10.1)
[2017-09-07] MEDS: CHLORHEXIDINE GLUCONATE 2 % 1 PACK (2 CLOTHS) TOP SCH (04:00)
[2017-09-07] MEDS: AZTREONAM INJ 1,000 MG in SODIUM CHLORIDE 0.9% INJ 100 ML IV SCH ×3 (04:33→20:41)
[2017-09-07 05:06] LABS: MEAN CELL VOLUME 88.8 FL (80.0-100.0); MEAN CORPUSCULAR HEMOGLOBIN 31.6 PG (27.0-34.0); MEAN CORPUSCULAR HGB CONC 35.6 % (32.0-36.0); MEAN PLATELET VOLUME 7.5 FL (7.0-11.0); PLATELET COUNT 23 TH/MM3 (150-450); RED BLOOD COUNT 1.96 MIL/MM3 (4.50-5.90); WHITE BLOOD COUNT 0.3 TH/MM3 (4.0-11.0)
[2017-09-07 05:16] LABS: HEMATOCRIT 17.4 % (39.0-51.0); HEMOGLOBIN 6.2 GM/DL (13.0-17.0)
[2017-09-07] MEDS: SODIUM BICARBONATE 8.4% INJ 100 MEQ in SODIUM CHLOR 0.45% 1000 ML INJ 1,000 ML IV SCH ×2 (05:37→16:51)
[2017-09-07 05:56] LABS: ALBUMIN 2.4 GM/DL (3.4-5.0); ALKALINE PHOSPHATASE 113 U/L (45-117); ALT (GPT) 36 U/L (12-78); AST (GOT) 85 U/L (15-37); BICARBONATE 19.2 MEQ/L (21.0-32.0); BLOOD UREA NITROGEN 137 MG/DL (7-18); CHLORIDE 104 MEQ/L (98-107); CREATININE 3.22 MG/DL (0.60-1.30); GLOMERULAR FILTRATION RATE 19 ML/MIN (>89); GLUCOSE,RANDOM 287 MG/DL (74-106); MAGNESIUM 2.9 MG/DL (1.5-2.5); PHOSPHORUS 15.8 MG/DL (2.5-4.9); SODIUM (NA) 142 MEQ/L (136-145); TOTAL BILIRUBIN ADULT 1.2 MG/DL (0.2-1.0); TOTAL PROTEIN 4.8 GM/DL (6.4-8.2)
[2017-09-07 05:57] LABS: CALCIUM LESS THAN 5.0 MG/DL (8.5-10.1)
[2017-09-07 05:58] LABS: CALCIUM-PROTEIN CORRECTED 5.9 MG/DL (8.5-10.1)
[2017-09-07] MEDS ORDERED: CALCIUM GLUCONATE INJ 2 GM in DEXTROSE 5% IN WATER 100ML INJ 100 ML IV ONE ×2 (06:00)
[2017-09-07 07:07] LABS: BANDS 5 % (0-6); BLASTS 2 % (0-0); LYMPHOCYTES 25 % (9-44); MONOCYTES 4 % (0-8); NEUTROPHIL # MANUAL DIFF 0.2 TH/MM3 (1.8-7.7); POLYS (SEG NEUTROPHILS) 60 % (16-70)
[2017-09-07 07:10] LABS: TOXIC GRANULATION 1+ (NORMAL)
[2017-09-07] MEDS: predniSONE 1 MG TAB PO SCH ×2 (08:54→20:49)
[2017-09-07] MEDS: predniSONE 20 MG TAB PO SCH ×2 (08:54→20:48)
[2017-09-07] MEDS: DOCUSATE SODIUM 50 MG/SENNA 8.6 MG TAB PO SCH ×2 (08:55→20:48)
[2017-09-07] MEDS: predniSONE 50 MG TAB PO SCH ×2 (08:55→20:48)
[2017-09-07] MEDS: SODIUM CHLORIDE 0.9% FLUSH 10 ML FLUSH IVF SCH (08:55)
[2017-09-07] MEDS: CALCIUM ACETATE 667 MG CAP PO SCH ×3 (08:55→17:51)
[2017-09-07] MEDS: SODIUM CHLORIDE 0.9% FLUSH 10 ML FLUSH IV FLUSH SCH ×2 (08:55→20:49)
[2017-09-07] MEDS: PANTOPRAZOLE SODIUM 40 MG VIAL IV PUSH SCH (08:55)
[2017-09-07] MEDS: RAMIPRIL 5 MG CAP PO SCH (08:56)
[2017-09-07] MEDS: BUDESONIDE-FORMOTEROL 160/4.5 MCG INHALER INH SCH ×2 (08:58→20:47)
--- NOTE | 2017-09-07 09:27 | HHI.NPPN ---
Subjective General Problems: Edema, Hypotension Renal Failure: Acute History of Present Illness Patient is a 72 year old male with a past medical history of prostate cancer, asthma, gastroesophageal reflux, Muñoz's esophagus,hypertension, new anemia, new thrombocytopenia, rotator cuff injury, and back pain. 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 Patient was receiving Rituxan last night and developed a reaction with low grade temperature, pain, and tremor. Plan to transfer patient to intensive care unit as patient is at risk for fluid overload with blood transfusions and acute kidney injury. Nephrology is consulted for acute kidney injury with creatinine of 2.44 with a admission creatinine of 0.99. HGB is low at 7.2, Plt of 27, NA 148, CO2 14.5. Patient is resting comfortably now with his only complaint is that is dizzy with ambulation. Additional Remarks Patient denies any shortness of breath. Edema is increasing however patient has good urinary output. Creatinine only slightly increased at 3.22 from 3.14. (Janet Ribeiro) Review of Systems Respiratory Respiratory Remarks Denies any SOB (Janet Ribeiro) Cardiovascular Cardiac Remarks Denies any CP (Janet Ribeiro) Gastrointestinal GI Remarks Denies any abdominal pain (Janet Ribeiro) Objective Data Data 09/07/17 09/08/17 19:00 07:00 Intake Total 538 ml Balance 538 ml IV Total 118 ml Packed Cells 400 ml Blood Product IV Normal Saline Flush 20 ml Vital Signs Date Time Temp Pulse Resp B/P (MAP) Pulse Ox O2 Delivery O2 Flow Rate FiO2 09/07/17 09:21 97.4 79 24 105/64 95 09/07/17 09:05 97.4 79 24 104/58 96 09/07/17 07:34 97.0 78 23 101/58 (72) 96 09/07/17 07:31 24 09/07/17 07:24 95 Nasal Cannula 5.00 09/07/17 07:24 76 09/07/17 07:15 97.0 77 23 101/58 96 09/07/17 06:44 97.6 76 24 104/60 97 09/07/17 05:00 78 107/59 09/07/17 03:00 97.8 77 23 106/57 (73) 94 09/07/17 03:00 94 Nasal Cannula 5.00 09/07/17 00:08 81 114/60 09/06/17 23:00 97.5 79 23 103/55 (71) 96 09/06/17 23:00 79 09/06/17 23:00 95 Nasal Cannula 5.00 09/06/17 21:20 97 Nasal Cannula 5.00 09/06/17 19:00 95 Nasal Cannula 5.00 09/06/17 19:00 97.9 75 22 101/53 (69) 97 09/06/17 19:00 75 09/06/17 15:10 95 Nasal Cannula 5.00 09/06/17 15:10 81 09/06/17 15:09 97.4 81 25 105/64 (78) 95 09/06/17 13:58 97.4 82 24 102/57 95 09/06/17 13:51 94 Nasal Cannula 3.00 09/06/17 13:32 97.4 86 23 112/58 95 09/06/17 13:19 97.4 86 24 109/65 95 09/06/17 12:54 97.4 83 24 109/57 95 09/06/17 12:04 97.4 93 25 109/57 95 09/06/17 11:48 97.0 81 25 96/53 95 09/06/17 11:04 97.0 82 25 101/54 (70) 93 09/06/17 11:04 93 Nasal Cannula 5.00 09/06/17 10:08 97.8 83 24 94/52 95 09/06/17 09:54 98.4 94 25 102/56 95 (Janet Ribeiro) -: 09/07/17 0421 09/07/17 0421 Microbiology 09/06/17 Aerobic Blood Culture, Received Pending 09/06/17 Anaerobic Blood Culture, Received Pending 09/06/17 Aerobic Blood Culture, Received Pending 09/06/17 Anaerobic Blood Culture, Received Pending (Janet Ribeiro) Physical Exam General Appearance: No Acute Distress, Comfortable (Janet Ribeiro) Throat Throat Exam: Oral Mucosa [place] & Moist (Janet Ribeiro) Pulmonary Resp Exam: Breath Sounds Equal, No Distress Resp Remarks O2 NC 5 liters (Janet Ribeiro) Cardiology CV Exam: Regular, Normal Sinus Rhythm (Janet Ribeiro) Gastrointestinal/Abdomen GI Exam: Soft, Non-Tender, Distended (Janet Ribeiro) Genitourinary Exam: Flank Non-Tender (Janet Ribeiro) Integumentary Skin Exam: Clear, Warm (Janet Ribeiro) Extremeties Extremities Exam: Moderate Edema, Dependent Edema (aJnet Ribeiro) Neurologic Neuro Exam: Alert, Awake, Oriented (Janet Ribeiro) Psychiatric Psych Exam: Appropriate Responses (Janet Ribeiro) Assessment/Plan Problem List: (1) Acute kidney injury ICD Codes: N17.9 - Acute kidney failure, unspecified Plan: Acute kidney injury with creatinine of 2.44 when consulted. Acute kidney injury most likely related to tumor lysis. On admission creatinine of 0.99. CT of abdomen on the with kidney with normal in size and shape. There is no mass, stone or hydronephrosis. Lobulated cysts in the upper poles of both kidneys with some benign-appearing calcification on the left Plan Maintain Strict I+O Will monitor renal panel and urinary output Avoid nephrotoxins. Anemia with PRBC infusing Creatinine at 3.22 from 3.14 at last check with good urinary output. Continue phoslo Hypocalcemia at 5.9 calcium gluconate given Potassium at 4.4 was on Kayexalate every 6 hours will monitor No urgent need for Dialysis at present. (2) B-cell lymphoma ICD Codes: C85.10 - Unspecified B-cell lymphoma, unspecified site Status: Acute Plan: Oncology managing (3) Anemia ICD Codes: D64.9 - Anemia, unspecified Status: Acute Plan: Plan to transfuse (Janet Ribeiro) Problem List: (1) Acute kidney injury ICD Codes: N17.9 - Acute kidney failure, unspecified Plan: Acute kidney injury with creatinine of 2.44 when consulted. Acute kidney injury most likely related to tumor lysis. On admission creatinine of 0.99. CT of abdomen on the with kidney with normal in size and shape. There is no mass, stone or hydronephrosis. Lobulated cysts in the upper poles of both kidneys with some benign-appearing calcification on the left Plan Maintain Strict I+O Will monitor renal panel and urinary output Avoid nephrotoxins. Anemia with PRBC infusing Creatinine at 3.22 from 3.14 at last check with good urinary output. Continue phoslo Hypocalcemia at 5.9 calcium gluconate given Potassium at 4.4 was on Kayexalate every 6 hours will monitor No urgent need for Dialysis at present. Patient seen and examined, agree with above. Watch for renal function and fluid overload. (2) B-cell lymphoma ICD Codes: C85.10 - Unspecified B-cell lymphoma, unspecified site Status: Acute Plan: Oncology managing (3) Anemia ICD Codes: D64.9 - Anemia, unspecified Status: Acute Plan: Plan to transfuse (Demi Mendez MD) Problem Qualifiers (1) Anemia: Qualified Codes: D64.9 - Anemia, unspecified Janet Ribeiro Sep 07, 2017 09:27 Demi Mendez MD Sep 09, 2017 11:41
[2017-09-07] MEDS: SODIUM CHLOR 0.9% 1000 ML INJ 1,000 ML IV SCH ×2 (09:38→19:38)
[2017-09-07] MEDS ORDERED: RASBURICASE INJ 7.5 MG in SODIUM CHLORIDE 0.9% INJ 50 ML IV ONE (10:00)
--- NOTE | 2017-09-07 10:29 | PD.ONC.PN ---
Subjective Subjective Remarks Afebrile overnight. Patient resting in bed. Remains very fatigued. and daughter at bedside. Objective Data Date Time Temp Pulse Resp B/P (MAP) Pulse Ox O2 Delivery O2 Flow Rate FiO2 09/07/17 09:21 97.4 79 24 105/64 95 09/07/17 09:05 97.4 79 24 104/58 96 09/07/17 08:30 97 Nasal Cannula 5.00 09/07/17 07:34 97.0 78 23 101/58 (72) 96 09/07/17 07:31 24 09/07/17 07:24 95 Nasal Cannula 5.00 09/07/17 07:24 76 09/07/17 07:15 97.0 77 23 101/58 96 09/07/17 06:44 97.6 76 24 104/60 97 09/07/17 05:00 78 107/59 09/07/17 03:00 97.8 77 23 106/57 (73) 94 09/07/17 03:00 94 Nasal Cannula 5.00 09/07/17 00:08 81 114/60 09/06/17 23:00 97.5 79 23 103/55 (71) 96 09/06/17 23:00 79 09/06/17 23:00 95 Nasal Cannula 5.00 09/06/17 21:20 97 Nasal Cannula 5.00 09/06/17 19:00 95 Nasal Cannula 5.00 09/06/17 19:00 97.9 75 22 101/53 (69) 97 09/06/17 19:00 75 09/06/17 15:10 95 Nasal Cannula 5.00 09/06/17 15:10 81 09/06/17 15:09 97.4 81 25 105/64 (78) 95 09/06/17 13:58 97.4 82 24 102/57 95 09/06/17 13:51 94 Nasal Cannula 3.00 09/06/17 13:32 97.4 86 23 112/58 95 09/06/17 13:19 97.4 86 24 109/65 95 09/06/17 12:54 97.4 83 24 109/57 95 09/06/17 12:04 97.4 93 25 109/57 95 09/06/17 11:48 97.0 81 25 96/53 95 09/06/17 11:04 97.0 82 25 101/54 (70) 93 09/06/17 11:04 93 Nasal Cannula 5.00 09/07/17 09/07/17 09/07/17 07:00 15:00 23:00 Intake Total 2958 ml 1068 ml Output Total 1000 ml Balance 1958 ml 1068 ml Result Diagram: 09/07/17 0421 09/07/17 0421 Laboratory Results Laboratory Tests Test 09/06/17 11:30 09/06/17 13:20 09/07/17 01:57 09/07/17 04:21 Blood Urea Nitrogen 117 MG/DL 137 MG/DL 137 MG/DL Creatinine 3.12 MG/DL 3.14 MG/DL 3.22 MG/DL Random Glucose 372 MG/DL 286 MG/DL 287 MG/DL Total Protein 4.7 GM/DL 4.8 GM/DL 4.8 GM/DL Albumin 2.3 GM/DL 2.4 GM/DL Calcium Level 5.4 MG/DL LESS THAN 5.0 MG/DL LESS THAN 5.0 MG/DL Phosphorus Level 16.5 MG/DL 15.8 MG/DL Magnesium Level 2.8 MG/DL 2.9 MG/DL Alkaline Phosphatase 142 U/L 113 U/L Aspartate Amino Transf (AST/SGOT) 272 U/L 85 U/L Alanine Aminotransferase (ALT/SGPT) 44 U/L 36 U/L Total Bilirubin 1.1 MG/DL 1.2 MG/DL Sodium Level 138 MEQ/L 142 MEQ/L 142 MEQ/L Potassium Level 5.8 MEQ/L 4.5 MEQ/L 4.4 MEQ/L Chloride Level 103 MEQ/L 103 MEQ/L 104 MEQ/L Carbon Dioxide Level 16.4 MEQ/L 17.3 MEQ/L 19.2 MEQ/L Anion Gap 19 MEQ/L 22 MEQ/L 19 MEQ/L Estimat Glomerular Filtration Rate 20 ML/MIN 20 ML/MIN 19 ML/MIN Lactic Acid Level 1.4 mmol/L Protein Corrected Calcium 6.4 MG/DL 5.9 MG/DL 5.9 MG/DL Troponin I 0.02 NG/ML Urine Color LIGHT-YELLOW Urine Turbidity CLEAR Urine pH 5.0 Urine Specific Wellman 1.002 Urine Protein NEG mg/dL Urine Glucose (UA) NEG mg/dL Urine Ketones NEG mg/dL Urine Occult Blood NEG Urine Nitrite NEG Urine Bilirubin NEG Urine Urobilinogen LESS THAN 2.0 MG/DL Urine Leukocyte Esterase NEG Microscopic Urinalysis Comment CULT NOT INDICATED White Blood Count 0.3 TH/MM3 Red Blood Count 1.96 MIL/MM3 Hemoglobin 6.2 GM/DL Hematocrit 17.4 % Mean Corpuscular Volume 88.8 FL Mean Corpuscular Hemoglobin 31.6 PG Mean Corpuscular Hemoglobin Concent 35.6 % Red Cell Distribution Width 15.0 % Platelet Count 23 TH/MM3 Mean Platelet Volume 7.5 FL CBC Comment AUTO DIFF Differential Total Cells Counted 100 Neutrophils % (Manual) 60 % Band Neutrophils % 5 % Lymphocytes % 25 % Monocytes % 4 % Eosinophils % 4 % Neutrophils # (Manual) 0.2 TH/MM3 Differential Comment FINAL DIFF MANUAL Blastocytes 2 % Toxic Granulation 1+ Platelet Estimate LOW Platelet Morphology Comment NORMAL Uric Acid 10.2 MG/DL Lactate Dehydrogenase 8031 U/L Culture Results Microbiology Date/Time Source Procedure Growth Status 09/06/17 13:26 Blood Peripheral Aerobic Blood Culture - Preliminary Gram Negative Lex Resulted 09/06/17 13:26 Anaerobic Blood Culture - Preliminary Gram Negative Lex Resulted 09/06/17 13:18 Blood Peripheral Aerobic Blood Culture Pending Resulted 09/06/17 13:18 Anaerobic Blood Culture - Preliminary Gram Positive Cocci Resulted Administered Medications Medications (Trade) Dose Ordered Sig/Robert Route PRN Reason Start Time Stop Time Status Last Admin Dose Admin Sodium Chloride 1,000 ml @ 100 mls/hr Q10H IV 08/29/17 16:00 09/05/17 05:44 Sodium Chloride (NS Flush) 2 ml UNSCH PRN IV FLUSH FLUSH AFTER USING IV ACCESS 08/29/17 15:45 09/03/17 00:37 Sodium Chloride (NS Flush) 2 ml BID IV FLUSH 08/29/17 21:00 09/07/17 08:55 Pantoprazole Sodium (Protonix Inj) 40 mg DAILY IV PUSH 08/30/17 09:00 09/07/17 08:55 Ondansetron HCl (Zofran Inj) 4 mg Q6H PRN IV PUSH NAUSEA OR VOMITING 08/29/17 16:00 09/07/17 00:12 Albuterol/ Ipratropium (Duoneb Neb) 1 ampule Q2HR NEB PRN INH WHEEZING 08/29/17 16:00 09/04/17 23:32 Chlorhexidine Gluconate (Chlorhexidine 2% Cloth) Taper DAILY@04 TOP 08/30/17 04:00 08/26/18 03:59 09/07/17 04:00 Senna/Docusate Sodium (Madina-Colace) 1 tab BID PO 08/29/17 21:00 09/07/17 08:55 Albuterol Sulfate (Proair Hfa Inh) 2 puff Q6H PRN INH SHORTNESS OF BREATH 08/29/17 18:00 08/30/17 10:20 Amlodipine Besylate (Norvasc) 10 mg DAILY PO 08/30/17 09:00 Future Hold 09/05/17 10:12 Budesonide/ Formoterol Fumarate (Symbicort 160-4.5 Mcg Inh) 2 puff BID INH 08/29/17 21:00 09/07/17 08:58 Ramipril (Altace) 10 mg DAILY PO 08/30/17 14:00 09/05/17 10:12 Morphine Sulfate (Morphine Inj) 2 mg Q4H PRN IV PUSH Pain 3 to 6 09/01/17 16:00 09/07/17 06:49 Morphine Sulfate (Morphine Inj) 4 mg Q4H PRN IV PUSH Pain 7 to 10 09/01/17 16:00 09/04/17 22:55 Allopurinol (Zyloprim) 300 mg BID PO 09/04/17 21:00 Future Hold 09/04/17 20:56 Sodium Chloride (NS Flush) DAILY IVF 09/05/17 09:00 09/04/17 22:55 Heparin Sodium (Porcine) (Heparin Central Flush) DAILY IV FLUSH 09/05/17 09:00 09/07/17 08:55 Sodium Chloride (NS Flush) UNSCH PRN IVF SEE PROTOCOL 09/04/17 16:00 09/07/17 00:12 Sodium Bicarbonate 100 meq/Sodium Chloride 1,100 ml @ 125 mls/hr Q8H48M IV 09/05/17 20:00 09/07/17 05:37 Dopamine HCl/ Dextrose 250 ml @ 0 mls/hr TITRATE PRN IV Blood Pressure Management 09/06/17 01:30 09/06/17 08:12 Norepinephrine Bitartrate 250 ml @ 7.5 mls/hr TITRATE PRN IV Blood pressure management 09/06/17 10:15 09/07/17 09:12 Calcium Acetate (Phoslo) 1,334 mg TID PO 09/06/17 13:00 09/07/17 08:55 Aztreonam 1000 mg/ Sodium Chloride 100 ml @ 200 mls/hr Q8H IV 09/06/17 12:00 09/07/17 04:33 Prednisone (Deltasone) 100 mg BID PO 09/07/17 09:00 09/10/17 21:01 09/07/17 08:55 Prednisone (Deltasone) 20 mg BID PO 09/07/17 09:00 09/10/17 21:01 09/07/17 08:54 Prednisone (Deltasone) 3 mg BID PO 09/07/17 09:00 09/10/17 21:01 09/07/17 08:54 Rasburicase 7.5 mg/Sodium Chloride 50 ml @ 100 mls/hr ONCE ONCE IV 09/07/17 10:00 09/07/17 10:29 09/07/17 10:22 Objective Remarks GENERAL: Elderly male lying in bed, fatigued but awake. SKIN: Warm and dry. HEAD: Normocephalic. EYES: No injection or drainage. NECK: Supple, trachea midline. CARDIOVASCULAR: Regular rate and rhythm RESPIRATORY: anterior bridges with scattered rhonchi. On 5L O2 via NC GASTROINTESTINAL: Abdomen soft, non-tender, nondistended. EXTREMITIES: No cyanosis NEUROLOGICAL: awake, alert. lethargic. normal speech. 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 ++also has bone pain, back pain, elevated LDH, as well as the sweats that suggests a more systemic manifestation of bone marrow disorder. ++ Nucleated red cells seen on peripheral smear. no acute blasts. 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 09/04: PICC line placement today, start R-EPOCH, give IT MTX. 09/05: Rituxan infusion complete. patient in TLS. transferred to ICU. pediatric physical therapist consulted. 09/06: start EPOCH, window closing as patient is now leukopenic. give blood and platelets. 09/07: give D2 EPOCH. give 1 unit pRBC, check repeat H/H. (2) Pancytopenia ICD Codes: D61.818 - Other pancytopenia (3) Tumor lysis syndrome ICD Codes: E88.3 - Tumor lysis syndrome (4) Sepsis ICD Codes: A41.9 - Sepsis, unspecified organism Assessment 72y/o male with anemia + thrombocytopenia. history of prostate cancer, status post prostatectomy, coronary artery disease, s/p stent placement. 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 Plan 1. give day 2 EPOCH today 2. dose with rasburicase today 3. continue IVF, sodium bicarb 4. continue antibiotics. appreciate pediatric physical therapist assistance. 5. discussed with patient and family + CSF results, need for Ommaya reservoir once clinically improved. Attending Statement The exam, history, and the medical decision-making described in the above note were completed with the assistance of the mid-level provider. I reviewed and agree with the findings presented. I attest that I had a [id number] encounter with the patient on the same day, and personally performed and documented my assessment and findings in the medical record. Pt seen and examined in AM. C/O leg swelling, feels fatigued, no chest pain, no appetite. Tumor lysis syndrome, electrolyte abnormalities being managed conservatively. Burkitt's is the most aggressive proliferative lymphoma, tumor lysis despite precaution to hydrate, rasburicase, allopurinol and nephrology consult. Noted blood culture positive. Appreciate [employer]pler consultation and starting empiric antibiotic along with pressor support. He will need line change for GM neg lex. He is neutropenic and transfusion dependent at this point. Transfuse support to keep platelet >15K and Hgb >7.0 or symptoms. Discussed CSF fluid prior to IT MTX was positive for Burkitt's. Discussed Omaya and consideration to place it here or in [place] where he is trying to be after his induction. Laurita Davila Sep 07, 2017 10:29 Shahla Duron MD Sep 07, 2017 17:08
[2017-09-07 11:43] LABS: HEMATOCRIT 23.1 % (39.0-51.0); HEMOGLOBIN 8.2 GM/DL (13.0-17.0)
[2017-09-07] MEDS: GRANISETRON HCL 1 MG/ML VIAL IV SCH (12:45)
[2017-09-07] MEDS: ETOPOSIDE IV SCH (12:58)
[2017-09-07] MEDS: DOXORUBICIN IV SCH (12:58)
[2017-09-07] MEDS: VINCRISTINE IV SCH (12:58)
[2017-09-07] MEDS: [UNRECOGNIZED DRUG - OTHER] IV SCH (12:58)
--- NOTE | 2017-09-07 14:11 | HHI.CCPN ---
Subjective Remarks/Hospital Course This is a 72-year-old male that presented to [facility] emergency room with complaints of increasing dizziness since the beginning of this month. Approximately 2 weeks ago he reported to an urgent care center and was diagnosed with benign paroxysmal vertigo and given meclizine Medrol Ebenezer and Ultram. His symptoms progressively worsened and he reported to the emergency room today, after almost falling this morning. The patient discontinued taking meloxicam shortly after the prescription was initiated, stating that it was not helping. He has noted some dark stools. He has noted that he has been bruising easily recently. Patient also complains of acute back pain that started approximately 1 week ago. Laboratory and imaging studies were performed in the ED and the patient was noted to have severe thrombocytopenia with a platelet count of 5 , anemia with a hemoglobin 7.8 . Hematology was consulted and the patient LDH and haptoglobin laboratory studies are pending . CT brain revealed small focal density region possible in the anterior falx concerning for hemorrhage . The patient's medical history is significant for an MS in 2003 at which point he had 2 stents placed. The patient reports he was put on Plavix for several weeks then discontinued, but continues to aspirin. Patient's pertinent medical history also includes hypertension well controlled with Norvasc, Muñoz's esophagus he has had follow-up endoscopies evaluated every 2 years last procedure performed approximately 1 year ago which stated no change and he continues on Nexium. He has a history of prostate cancer and has had the prostate removed and had 38 radiation treatments in 2003. Critical care medicine was consulted. Upon my evaluation the patient was hemodynamically stable BP 104/55, heart rate 91. The patient is planned for stat transfer to [facility], and is pending transfusions of 2 PRBC, 1 of PLTs. Hematology and gastroenterology have been consulted. I have discussed the patient with Dr. Hong. Subjective: 08/30: T-max 99 3. The patient continued to run low-grade fevers through the night. Patient noted to have bands 18%. Will obtain lactic acid, blood cultures pending. The patient received 2 units packed red blood cells and platelets. Repeat CBC with differential pending. MRI pending this a.m.. Small subdural noted on repeat CT brain,neurosurgery consulted. Will repeat CT brain in am. 09/03: The patient was diagnosed with Burkitt's lymphoma of bone marrow, 09/04: PICC line placement started r-EPOCH, and IT MTX. 09/05: Patient had reaction to small dose of Rituxan last night and is developing tumor lysis syndrome with worsening kidney function and was transferred back to ICU for higher level of care 09/06: Over the night patient started on dopamine, currently at 13, with map above 65. Patient feels about the same, denies chest pain, difficulty breathing , cough, abdominal pain. No bowel movement. On 5 L nasal cannula with O2 sat above 95%. present at bedside. 09/07: Patient did well over the night. Improved pressor requirement currently on norepinephrine at 5 mcg/min. Slightly improved urine output, potassium normalizing. Patient feels about the same, still very fatigued. Denies any specific complaints. Objective Vital Signs Date Time Temp Pulse Resp B/P (MAP) Pulse Ox O2 Delivery O2 Flow Rate FiO2 09/07/17 11:06 95 Nasal Cannula 5.00 09/07/17 11:06 97.5 79 23 93/67 (76) 09/04/17 21:07 21 Intake and Output 09/07/17 09/07/17 09/08/17 08:00 16:00 00:00 Intake Total 2958 ml 1738 ml Output Total 1000 ml Balance 1958 ml 1738 ml Result Diagram: 09/07/17 1100 09/07/17 0421 Other Results Microbiology Date/Time Source Procedure Growth Status 09/06/17 13:26 Blood Peripheral Aerobic Blood Culture - Preliminary Gram Negative Lex Resulted 09/06/17 13:26 Anaerobic Blood Culture - Preliminary Gram Negative Lex Resulted 09/06/17 13:18 Blood Peripheral Aerobic Blood Culture - Preliminary NO GROWTH IN 1 DAY Resulted 09/06/17 13:18 Anaerobic Blood Culture - Preliminary Gram Positive Cocci Resulted Imaging Last Impressions Thoracic Spine CT 08/30/17 0100 Signed Impressions: Service Date/Time: August 01:37 - CONCLUSION: 1. No fracture, subluxation or other acute abnormality of the thoracic spine. 2. Scoliosis and mild multifocal degenerative changes as above. 3. Complex appearing cystic structures of the upper poles of both kidneys. Comparison to any previous outside facility studies is recommended to confirm chronicity and stability. Contrast enhanced study of the abdomen suggested if felt clinically indicated, preferably MRI if there are no contraindications. Tim Jones MD Lumbar Spine CT 08/30/1799 Signed Impressions: Service Date/Time: August 01:37 - CONCLUSION: 1. No acute fracture or acute subluxation of the lumbar spine. 2. 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 3. Mild spinal and bilateral foraminal stenosis at L4/L5. 4. Mild right and moderate left foraminal stenosis at L5/S1. 5. Benign vertebral body hemangioma of L1. No concerning lumbar spine bone lesion. Tim Jones MD Head CT 08/30/1799 Signed Impressions: Service Date/Time: August 01:37 - CONCLUSION: Small frontal maddy-falcine subdural blood is unchanged. Tim Jones MD Procedures Bone marrow biopsy 08/30/2017. Objective Remarks General - elderly gentleman, awake, ill-appearing, fatigued HEENT - pupils equal, reactive, sclerae anicteric, neck supple, no nuchal rigidity, neck veins not distended, no carotid bruit, MMM CV - regular S1, S2, no murmurs Chest - some rales at bases posteriorly, good air entry, no wheezes Abdomen - soft, non-tender, distended, BS present, no hepatomegaly, no splenomegaly Skin - no rashes, no cyanosis Extremities - warm and well perfused, 2+ pitting edema, + peripheral pulses, no clubbing Neuro - awake, alert, oriented 3, motor 5 out of 5, moves all extremities Line: PICC A/P Problem List: (1) Anemia ICD Code: D64.9 - Anemia, unspecified Status: Acute (2) Thrombocytopenia ICD Code: D69.6 - Thrombocytopenia, unspecified Status: Acute (3) GI bleed ICD Code: K92.2 - Gastrointestinal hemorrhage, unspecified Status: Acute (4) Prostate cancer ICD Code: C61 - Malignant neoplasm of prostate Status: Resolved (5) Hypertension ICD Code: I10 - Essential (primary) hypertension Status: Chronic (6) Asthma ICD Code: J45.909 - Unspecified asthma, uncomplicated Status: Chronic (7) History of MS (myocardial infarction) ICD Code: I25.2 - Old myocardial infarction (8) Back pain ICD Code: M54.9 - Dorsalgia, unspecified Status: Acute (9) BMI 30.0-30.9,adult ICD Code: Z68.30 - Body mass index (BMI) 30.0-30.9, adult Status: Chronic Assessment and Plan 1. Septic shock secondary to gram-negative septicemia. Blood cultures also growing gram-positive cocci, unclear yet if this played a role in patient's decompensation or if it represents a contaminant 2. Tumor lysis syndrome 3. Hyperkalemia -improved 4. LUCA -creatinine remains elevated but urine output slightly improved 5. Metabolic acidosis 6. Pancytopenia -requiring transfusion 7. Burkitt's lymphoma status post chemo 8. Meningioma 9. History of CAD 10. History of prostate cancer status post XRT 11. Muñoz's esophagus 12. GI bleed 1. Continue norepinephrine to keep map above 65 2. Blood product transfusion per hematology 3. Continue vancomycin and aztreonam 4. Follow-up blood cultures and final speciation 5. Check Vanco level and will re-dose if needed 6. Nephrology following 7. Continue bicarbonate infusion 8. Allopurinol/rasburicase per hematology 9. Continue to hold antihypertensives 10. Hold antiplatelets 11. Supplemental O2 to keep SPO2 above 92% 12. GI prophylaxis Patient is immunosuppressed and critically ill with circulatory shock, LUCA, TLS , hyperkalemia and he is at very high risk for further deterioration. I spent 31 minutes of critical care time, excluding procedures, managing septic shock, gram-negative septicemia, severe neutropenia, LUCA, reviewing data, ordering labs, discussing with nursing staff and patient. Problem Qualifiers (1) Anemia: Qualified Codes: D64.9 - Anemia, unspecified (2) Back pain: Qualified Codes: M54.9 - Dorsalgia, unspecified Felipe Larose MD Sep 07, 2017 14:11
[2017-09-07] MEDS ORDERED: Vancomycin Consult Pharmacy 1 EA OTHER SCH (18:00)
[2017-09-07] MEDS ORDERED: VANCOMYCIN INJ 2,250 MG in SODIUM CHLORID 0.9% 500 ML INJ 500 ML IV ONE (20:00)
[2017-09-08] VITALS (11 sets, daily range): BP systolic 103–114; BP diastolic 57–67; PULSE 7–80; RESP 18–22; TEMP 97.6–97.8; O2SAT 93–94
[2017-09-08] MEDS: SODIUM BICARBONATE 8.4% INJ 100 MEQ in SODIUM CHLOR 0.45% 1000 ML INJ 1,000 ML IV SCH ×3 (02:18→21:21)
[2017-09-08] MEDS: CHLORHEXIDINE GLUCONATE 2 % 1 PACK (2 CLOTHS) TOP SCH (04:00)
[2017-09-08] MEDS: SODIUM CHLOR 0.9% 1000 ML INJ 1,000 ML IV SCH ×2 (05:38→11:53)
[2017-09-08] MEDS: NOREPINEPHRINE-DEXTROSE DRIP 250 ML IV PRN (05:40)
[2017-09-08] MEDS: AZTREONAM INJ 1,000 MG in SODIUM CHLORIDE 0.9% INJ 100 ML IV SCH ×3 (05:44→21:21)
[2017-09-08] MEDS ORDERED: PHARMACY ORDERED LAB ONE (05:45)
[2017-09-08 06:44] LABS: HEMATOCRIT 22.2 % (39.0-51.0); HEMOGLOBIN 7.9 GM/DL (13.0-17.0); MEAN CELL VOLUME 87.2 FL (80.0-100.0); MEAN CORPUSCULAR HEMOGLOBIN 31.2 PG (27.0-34.0); MEAN CORPUSCULAR HGB CONC 35.8 % (32.0-36.0); RED BLOOD COUNT 2.55 MIL/MM3 (4.50-5.90); RED CELL DISTRIBUTION WIDTH 15.1 % (11.6-17.2); WHITE BLOOD COUNT 0.2 TH/MM3 (4.0-11.0)
[2017-09-08 07:01] LABS: PLATELET COUNT 4 TH/MM3 (150-450)
[2017-09-08] MEDS ORDERED: SODIUM CHLOR 0.9% 250 ML INJ 250 ML IV ONE (07:30)
[2017-09-08 07:41] LABS: ALBUMIN 2.3 GM/DL (3.4-5.0); ALKALINE PHOSPHATASE 93 U/L (45-117); ALT (GPT) 43 U/L (12-78); AST (GOT) 54 U/L (15-37); BICARBONATE 21.3 MEQ/L (21.0-32.0); BLOOD UREA NITROGEN 128 MG/DL (7-18); CHLORIDE 105 MEQ/L (98-107); CREATININE 3.12 MG/DL (0.60-1.30); GLOMERULAR FILTRATION RATE 20 ML/MIN (>89); GLUCOSE,RANDOM 237 MG/DL (74-106); RANDOM VANCOMYCIN 22.7 COMMENT; SODIUM (NA) 143 MEQ/L (136-145); TOTAL BILIRUBIN ADULT 1.3 MG/DL (0.2-1.0); TOTAL PROTEIN 4.5 GM/DL (6.4-8.2)
[2017-09-08 07:48] LABS: CALCIUM LESS THAN 5.0 MG/DL (8.5-10.1)
[2017-09-08] MEDS: SODIUM CHLORIDE 0.9% FLUSH 10 ML FLUSH IVF SCH (08:36)
[2017-09-08] MEDS: BUDESONIDE-FORMOTEROL 160/4.5 MCG INHALER INH SCH ×2 (08:41→21:22)
[2017-09-08] MEDS: SODIUM CHLORIDE 0.9% FLUSH 10 ML FLUSH IV FLUSH SCH ×2 (08:41→21:23)
[2017-09-08] MEDS: predniSONE 1 MG TAB PO SCH ×2 (08:42→21:22)
[2017-09-08] MEDS: DOCUSATE SODIUM 50 MG/SENNA 8.6 MG TAB PO SCH ×2 (08:42→21:21)
[2017-09-08] MEDS: PANTOPRAZOLE SODIUM 40 MG VIAL IV PUSH SCH (08:42)
[2017-09-08] MEDS: predniSONE 50 MG TAB PO SCH ×2 (08:42→21:22)
[2017-09-08] MEDS: predniSONE 20 MG TAB PO SCH ×2 (08:42→21:22)
[2017-09-08] MEDS: CALCIUM ACETATE 667 MG CAP PO SCH ×3 (08:42→17:47)
[2017-09-08] MEDS ORDERED: CALCIUM GLUCONATE INJ 2 GM in DEXTROSE 5% IN WATER 100ML INJ 100 ML IV ONE ×2 (09:00)
--- NOTE | 2017-09-08 09:00 | PD.ONC.PN ---
Subjective Subjective Remarks Afebrile overnight. Patient resting in bed. Remains very weak and tired. Objective Data Date Time Temp Pulse Resp B/P (MAP) Pulse Ox O2 Delivery O2 Flow Rate FiO2 09/08/17 07:00 97.7 73 18 106/57 (73) 93 09/08/17 07:00 80 09/08/17 07:00 93 Nasal Cannula 2.00 09/08/17 05:40 67 99/54 09/08/17 05:34 73 99/54 09/08/17 04:00 97.6 80 20 103/63 (76) 94 09/08/17 03:59 95 Nasal Cannula 2.00 09/08/17 03:46 74 09/08/17 00:52 93 Nasal Cannula 2.00 09/08/17 00:04 74 106/60 09/08/17 00:00 75 09/08/17 00:00 97.8 74 20 106/60 (75) 94 09/08/17 00:00 94 Nasal Cannula 2.00 09/07/17 22:56 94 Nasal Cannula 3.00 09/07/17 22:30 95 Nasal Cannula 3.00 09/07/17 21:45 94 Nasal Cannula 4.00 09/07/17 21:02 83 114/58 09/07/17 20:00 97.9 80 20 116/72 (87) 94 09/07/17 19:45 94 Nasal Cannula 4.00 09/07/17 19:00 78 09/07/17 15:11 78 09/07/17 15:10 94 Nasal Cannula 3.00 09/07/17 15:09 97.8 78 23 113/65 (81) 96 09/07/17 11:06 95 Nasal Cannula 5.00 09/07/17 11:06 97.5 79 23 93/67 (76) 96 09/07/17 09:21 97.4 79 24 105/64 95 09/07/17 09:05 97.4 79 24 104/58 96 09/08/17 09/08/17 09/08/17 07:00 15:00 23:00 Intake Total 2289 ml Output Total 1100 ml Balance 1189 ml Result Diagram: 09/08/17 0550 09/08/17 0550 Laboratory Results Laboratory Tests Test 09/07/17 11:00 09/07/17 16:30 09/08/17 05:50 09/08/17 06:00 Hemoglobin 8.2 GM/DL 7.9 GM/DL Hematocrit 23.1 % 22.2 % Random Vancomycin Level 3.3 COMMENT 22.7 COMMENT White Blood Count 0.2 TH/MM3 Red Blood Count 2.55 MIL/MM3 Mean Corpuscular Volume 87.2 FL Mean Corpuscular Hemoglobin 31.2 PG Mean Corpuscular Hemoglobin Concent 35.8 % Red Cell Distribution Width 15.1 % Platelet Count 4 TH/MM3 Mean Platelet Volume 8.0 FL CBC Comment AUTO DIFF Blood Urea Nitrogen 128 MG/DL Creatinine 3.12 MG/DL Random Glucose 237 MG/DL Total Protein 4.5 GM/DL Albumin 2.3 GM/DL Calcium Level LESS THAN 5.0 MG/DL Uric Acid 8.4 MG/DL Alkaline Phosphatase 93 U/L Aspartate Amino Transf (AST/SGOT) 54 U/L Alanine Aminotransferase (ALT/SGPT) 43 U/L Lactate Dehydrogenase 4948 U/L Total Bilirubin 1.3 MG/DL Sodium Level 143 MEQ/L Potassium Level 3.6 MEQ/L Chloride Level 105 MEQ/L Carbon Dioxide Level 21.3 MEQ/L Anion Gap 17 MEQ/L Estimat Glomerular Filtration Rate 20 ML/MIN Protein Corrected Calcium 6.0 MG/DL Blood Gas Puncture Site PICC LINE Blood Gas Patient Temperature 98.6 Venous Blood pH 7.34 Venous Blood Partial Pressure CO2 41 mmHg Venous Blood Partial Pressure O2 48 mmHg Venous Blood HCO3 21 mmol/L Venous Blood Oxygen Saturation 74 % Venous Blood Oxygen Content 9.4 Vol % Venous Blood Base Excess -3.5 mmol/L Oxygen Delivery Device NASAL CANNULA Blood Gas Liter Flow 2 L/M Culture Results Microbiology Date/Time Source Procedure Growth Status 09/06/17 13:26 Blood Peripheral Aerobic Blood Culture - Preliminary Escherichia Coli Resulted 09/06/17 13:26 Anaerobic Blood Culture - Final Escherichia Coli Resulted 09/06/17 13:18 Blood Peripheral Aerobic Blood Culture - Preliminary NO GROWTH IN 1 DAY Resulted 09/06/17 13:18 Anaerobic Blood Culture - Preliminary Gram Positive Cocci Resulted Administered Medications Medications (Trade) Dose Ordered Sig/Robert Route PRN Reason Start Time Stop Time Status Last Admin Dose Admin Sodium Chloride 1,000 ml @ 100 mls/hr Q10H IV 08/29/17 16:00 09/05/17 05:44 Sodium Chloride (NS Flush) 2 ml UNSCH PRN IV FLUSH FLUSH AFTER USING IV ACCESS 08/29/17 15:45 09/03/17 00:37 Sodium Chloride (NS Flush) 2 ml BID IV FLUSH 08/29/17 21:00 09/08/17 08:41 Pantoprazole Sodium (Protonix Inj) 40 mg DAILY IV PUSH 08/30/17 09:00 09/08/17 08:42 Ondansetron HCl (Zofran Inj) 4 mg Q6H PRN IV PUSH NAUSEA OR VOMITING 08/29/17 16:00 09/07/17 17:29 Albuterol/ Ipratropium (Duoneb Neb) 1 ampule Q2HR NEB PRN INH WHEEZING 08/29/17 16:00 09/04/17 23:32 Chlorhexidine Gluconate (Chlorhexidine 2% Cloth) Taper DAILY@04 TOP 08/30/17 04:00 08/26/18 03:59 09/07/17 04:00 Senna/Docusate Sodium (Madina-Colace) 1 tab BID PO 08/29/17 21:00 09/07/17 20:48 Albuterol Sulfate (Proair Hfa Inh) 2 puff Q6H PRN INH SHORTNESS OF BREATH 08/29/17 18:00 08/30/17 10:20 Amlodipine Besylate (Norvasc) 10 mg DAILY PO 08/30/17 09:00 Future Hold 09/05/17 10:12 Budesonide/ Formoterol Fumarate (Symbicort 160-4.5 Mcg Inh) 2 puff BID INH 08/29/17 21:00 09/08/17 08:41 Ramipril (Altace) 10 mg DAILY PO 08/30/17 14:00 Future Hold 09/05/17 10:12 Morphine Sulfate (Morphine Inj) 2 mg Q4H PRN IV PUSH Pain 3 to 6 09/01/17 16:00 09/07/17 06:49 Morphine Sulfate (Morphine Inj) 4 mg Q4H PRN IV PUSH Pain 7 to 10 09/01/17 16:00 09/04/17 22:55 Allopurinol (Zyloprim) 300 mg BID PO 09/04/17 21:00 Future Hold 09/04/17 20:56 Sodium Chloride (NS Flush) DAILY IVF 09/05/17 09:00 09/04/17 22:55 Heparin Sodium (Porcine) (Heparin Central Flush) DAILY IV FLUSH 09/05/17 09:00 09/08/17 08:41 Sodium Chloride (NS Flush) UNSCH PRN IVF SEE PROTOCOL 09/04/17 16:00 09/07/17 00:12 Sodium Bicarbonate 100 meq/Sodium Chloride 1,100 ml @ 125 mls/hr Q8H48M IV 09/05/17 20:00 09/08/17 02:18 Dopamine HCl/ Dextrose 250 ml @ 0 mls/hr TITRATE PRN IV Blood Pressure Management 09/06/17 01:30 09/06/17 08:12 Norepinephrine Bitartrate 250 ml @ 7.5 mls/hr TITRATE PRN IV Blood pressure management 09/06/17 10:15 09/08/17 05:40 Calcium Acetate (Phoslo) 1,334 mg TID PO 09/06/17 13:00 09/08/17 08:42 Aztreonam 1000 mg/ Sodium Chloride 100 ml @ 200 mls/hr Q8H IV 09/06/17 12:00 09/08/17 05:44 Doxorubicin HCl 20.5 mg/ Vincristine Sulfate 0.82 mg/ Etoposide 102.5 mg/Sodium Chloride 516.195 ml @ 21.508 mls/hr Q24H IV 09/07/17 11:00 09/10/17 10:59 09/07/17 12:58 Prednisone (Deltasone) 100 mg BID PO 09/07/17 09:00 09/10/17 21:01 09/08/17 08:42 Prednisone (Deltasone) 20 mg BID PO 09/07/17 09:00 09/10/17 21:01 09/08/17 08:42 Prednisone (Deltasone) 3 mg BID PO 09/07/17 09:00 09/10/17 21:01 09/08/17 08:42 Granisetron HCl (Kytril Inj) 1 mg Q24H IV 09/07/17 08:00 09/10/17 08:01 09/07/17 12:45 Sodium Chloride 250 ml @ 15 mls/hr ONCE ONCE IV 09/08/17 07:30 09/09/17 00:09 09/08/17 08:40 Calcium Gluconate 2 gm/Dextrose 120 ml @ 120 mls/hr ONCE ONCE IV 09/08/17 09:00 09/08/17 09:59 09/08/17 08:41 Objective Remarks GENERAL: Elderly male, lying in bed, awake, but weak and tired. On 2L O2 via NC SKIN: Warm and dry. HEAD: Normocephalic. EYES: No injection or drainage. NECK: Supple, trachea midline. CARDIOVASCULAR: Regular rate and rhythm RESPIRATORY: Breath sounds equal bilaterally. No accessory muscle use. GASTROINTESTINAL: Abdomen soft, non-tender, nondistended. EXTREMITIES: No cyanosis. diffuse edema in all extremities. NEUROLOGICAL: awake and alert. normal speech. moving all extremities. 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 ++also has bone pain, back pain, elevated LDH, as well as the sweats that suggests a more systemic manifestation of bone marrow disorder. ++ Nucleated red cells seen on peripheral smear. no acute blasts. 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 09/04: PICC line placement today, start R-EPOCH, give IT MTX. 09/05: Rituxan infusion complete. patient in TLS. transferred to ICU. trigonometry tutor consulted. 09/06: start EPOCH, window closing as patient is now leukopenic. give blood and platelets. 09/07: give D2 EPOCH. give 1 unit pRBC, check repeat H/H. 09/08: give D3 EPOCH. 1 unit pRBC, 1 unit platelets. (2) Pancytopenia ICD Codes: D61.818 - Other pancytopenia (3) Tumor lysis syndrome ICD Codes: E88.3 - Tumor lysis syndrome (4) Sepsis ICD Codes: A41.9 - Sepsis, unspecified organism Assessment 72y/o male with anemia + thrombocytopenia. history of prostate cancer, status post prostatectomy, coronary artery disease, s/p stent placement. 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 Plan 1. give 1 unit pRBC, 1 unit platelets. 2. continue IVF with sodium bicarbonate 3. dose with calcium carbonate. 4. continue antibiotics. repeat blood cultures. obtain BC from line. Attending Statement The exam, history, and the medical decision-making described in the above note were completed with the assistance of the mid-level provider. I reviewed and agree with the findings presented. I attest that I had a [id number] encounter with the patient on the same day, and personally performed and documented my assessment and findings in the medical record. Mr. Rico is a 72 yoM with Burkitt lymphoma s/p currently undergoing treatment [facility]. He is day 3 of chemotherapy treatment today. Hospital course complicated by cytopenias due to chemotherapy and tumor lysis syndrome. He will receive transfusion of platelet and PRBC today. Continue to monitor electrolytes and renal function. Laurita Davila Sep 08, 2017 09:00 Zoey Sheets MD Sep 08, 2017 13:47
[2017-09-08 09:05] LABS: BANDS 20 % (0-6); LYMPHOCYTES 28 % (9-44); MONOCYTES 5 % (0-8); NEUTROPHIL # MANUAL DIFF 0.1 TH/MM3 (1.8-7.7); POLYS (SEG NEUTROPHILS) 48 % (16-70); ROULEAUX PRESENT (NORMAL)
[2017-09-08 11:12] LABS: MAGNESIUM 2.8 MG/DL (1.5-2.5)
[2017-09-08 11:30] LABS: PHOSPHORUS 12.2 MG/DL (2.5-4.9)
--- NOTE | 2017-09-08 11:37 | HHI.NPPN ---
Subjective General Problems: Edema, Hypotension Renal Failure: Acute History of Present Illness Patient is a 72 year old male with a past medical history of prostate cancer, asthma, gastroesophageal reflux, Muñoz's esophagus,hypertension, new anemia, new thrombocytopenia, rotator cuff injury, and back pain. 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 Patient was receiving Rituxan last night and developed a reaction with low grade temperature, pain, and tremor. Plan to transfer patient to intensive care unit as patient is at risk for fluid overload with blood transfusions and acute kidney injury. Nephrology is consulted for acute kidney injury with creatinine of 2.44 with a admission creatinine of 0.99. HGB is low at 7.2, Plt of 27, NA 148, CO2 14.5. Patient is resting comfortably now with his only complaint is that is dizzy with ambulation. Additional Remarks No acute complaints Review of Systems Respiratory Respiratory Remarks Denies any SOB Cardiovascular Cardiac Remarks Denies any CP Gastrointestinal GI Remarks Denies any abdominal pain Objective Data Data 09/08/17 09/09/17 19:00 07:00 Intake Total 357 ml Balance 357 ml IV Total 120 ml Platelets 237 ml Vital Signs Date Time Temp Pulse Resp B/P (MAP) Pulse Ox O2 Delivery O2 Flow Rate FiO2 09/08/17 11:00 93 Nasal Cannula 2.00 09/08/17 11:00 97.8 73 20 114/64 (81) 93 09/08/17 11:00 71 09/08/17 09:25 97.7 73 18 110/62 94 09/08/17 07:00 97.7 73 18 106/57 (73) 93 09/08/17 07:00 80 09/08/17 07:00 93 Nasal Cannula 2.00 09/08/17 05:40 67 99/54 09/08/17 05:34 73 99/54 09/08/17 04:00 97.6 80 20 103/63 (76) 94 09/08/17 03:59 95 Nasal Cannula 2.00 09/08/17 03:46 74 09/08/17 00:52 93 Nasal Cannula 2.00 09/08/17 00:04 74 106/60 09/08/17 00:00 75 09/08/17 00:00 97.8 74 20 106/60 (75) 94 09/08/17 00:00 94 Nasal Cannula 2.00 09/07/17 22:56 94 Nasal Cannula 3.00 09/07/17 22:30 95 Nasal Cannula 3.00 09/07/17 21:45 94 Nasal Cannula 4.00 09/07/17 21:02 83 114/58 09/07/17 20:00 97.9 80 20 116/72 (87) 94 09/07/17 19:45 94 Nasal Cannula 4.00 09/07/17 19:00 78 09/07/17 15:11 78 09/07/17 15:10 94 Nasal Cannula 3.00 09/07/17 15:09 97.8 78 23 113/65 (81) 96 -: 09/08/17 0550 09/08/17 0550 Physical Exam General Appearance: No Acute Distress, Comfortable Throat Throat Exam: Oral Mucosa Fallis & Moist Pulmonary Resp Exam: Breath Sounds Equal, No Distress Cardiology CV Exam: Regular, Normal Sinus Rhythm Gastrointestinal/Abdomen GI Exam: Soft, Non-Tender, Distended Genitourinary Exam: Flank Non-Tender Integumentary Skin Exam: Clear, Warm Extremeties Extremities Exam: Moderate Edema, Dependent Edema Neurologic Neuro Exam: Alert, Awake, Oriented Psychiatric Psych Exam: Appropriate Responses Assessment/Plan Problem List: (1) Acute kidney injury ICD Codes: N17.9 - Acute kidney failure, unspecified Plan: Acute kidney injury with creatinine of 2.44 when consulted. Acute kidney injury most likely related to tumor lysis. On admission creatinine of 0.99. CT of abdomen on the with kidney with normal in size and shape. There is no mass, stone or hydronephrosis. Lobulated cysts in the upper poles of both kidneys with some benign-appearing calcification on the left Plan Creatinine at 3.2 -> 3.1, good UOP with 2L UOP. Maintain Strict I+O Will monitor renal panel and urinary output Avoid nephrotoxins. Anemia with PRBC infusing Acidosis improving - on IVFs with NaHCO3 at 125cc/hour Continue phoslo Hypocalcemia - continues with calcium gluconate given today Potassium improving, was previously on Kayexalate every 6 hours. Will monitor No urgent need for Dialysis at present. (2) B-cell lymphoma ICD Codes: C85.10 - Unspecified B-cell lymphoma, unspecified site Status: Acute Plan: Oncology managing (3) Anemia ICD Codes: D64.9 - Anemia, unspecified Status: Acute Plan: Plan to transfuse Problem Qualifiers (1) Anemia: Qualified Codes: D64.9 - Anemia, unspecified Victoriano Carter MD Sep 08, 2017 11:37
[2017-09-08] MEDS: GRANISETRON HCL 1 MG/ML VIAL IV SCH (13:03)
--- NOTE | 2017-09-08 14:38 | HHI.CCPN ---
Subjective Remarks/Hospital Course This is a 72-year-old male that presented to [facility] emergency room with complaints of increasing dizziness since the beginning of this month. Approximately 2 weeks ago he reported to an urgent care center and was diagnosed with benign paroxysmal vertigo and given meclizine Medrol Ebenezer and Ultram. His symptoms progressively worsened and he reported to the emergency room today, after almost falling this morning. The patient discontinued taking meloxicam shortly after the prescription was initiated, stating that it was not helping. He has noted some dark stools. He has noted that he has been bruising easily recently. Patient also complains of acute back pain that started approximately 1 week ago. Laboratory and imaging studies were performed in the ED and the patient was noted to have severe thrombocytopenia with a platelet count of 5 , anemia with a hemoglobin 7.8 . Hematology was consulted and the patient LDH and haptoglobin laboratory studies are pending . CT brain revealed small focal density region possible in the anterior falx concerning for hemorrhage . The patient's medical history is significant for an DE in 2003 at which point he had 2 stents placed. The patient reports he was put on Plavix for several weeks then discontinued, but continues to aspirin. Patient's pertinent medical history also includes hypertension well controlled with Norvasc, Muñoz's esophagus he has had follow-up endoscopies evaluated every 2 years last procedure performed approximately 1 year ago which stated no change and he continues on Nexium. He has a history of prostate cancer and has had the prostate removed and had 38 radiation treatments in 2003. Critical care medicine was consulted. Upon my evaluation the patient was hemodynamically stable BP 104/55, heart rate 91. The patient is planned for stat transfer to [facility], and is pending transfusions of 2 PRBC, 1 of PLTs. Hematology and gastroenterology have been consulted. I have discussed the patient with Dr. Hong. Subjective: 08/30: T-max 99 3. The patient continued to run low-grade fevers through the night. Patient noted to have bands 18%. Will obtain lactic acid, blood cultures pending. The patient received 2 units packed red blood cells and platelets. Repeat CBC with differential pending. MRI pending this a.m.. Small subdural noted on repeat CT brain,neurosurgery consulted. Will repeat CT brain in am. 09/03: The patient was diagnosed with Burkitt's lymphoma of bone marrow, 09/04: PICC line placement started r-EPOCH, and IT MTX. 09/05: Patient had reaction to small dose of Rituxan last night and is developing tumor lysis syndrome with worsening kidney function and was transferred back to ICU for higher level of care 09/06: Over the night patient started on dopamine, currently at 13, with map above 65. Patient feels about the same, denies chest pain, difficulty breathing , cough, abdominal pain. No bowel movement. On 5 L nasal cannula with O2 sat above 95%. present at bedside. 09/07: Patient did well over the night. Improved pressor requirement currently on norepinephrine at 5 mcg/min. Slightly improved urine output, potassium normalizing. Patient feels about the same, still very fatigued. Denies any specific complaints. 09/08: No events over the night. Patient was weaned off norepinephrine since 9 AM this morning. He is awake, feels about the same, denies shortness of breath , chest pain, palpitations. T-max of 97.9, urine output improved, 2150 mL's over the last 24 hours however he is more than 3 L positive since yesterday. He received PRBC and platelet transfusion this a.m.. ROS - denies fever, chills, has some generalized weakness, and some dizziness, no GRANADO, no CP, palpitations, no dyspnea, cough or wheezes, no abdominal pain, no nausea, no vomiting, denies diarrhea, no dysuria but feels that he is urinating a lot Objective Vital Signs Date Time Temp Pulse Resp B/P (MAP) Pulse Ox O2 Delivery O2 Flow Rate FiO2 09/08/17 11:54 97.8 73 20 114/64 93 09/08/17 11:00 Nasal Cannula 2.00 09/04/17 21:07 21 Intake and Output 09/08/17 09/08/17 09/08/17 07:59 15:59 23:59 Intake Total 2289 ml 907 ml Output Total 1100 ml Balance 1189 ml 907 ml Result Diagram: 09/08/17 0550 09/08/17 0550 Other Results Microbiology: Blood cultures 09/08 pending 2 Blood cultures 09/06 E coli 1/2 and GPC 1/2 Blood cultures 08/30 Staph hominis 1/2 Laboratory Tests Test 09/08/17 06:00 Blood Gas Puncture Site PICC LINE Blood Gas Patient Temperature 98.6 Venous Blood pH 7.34 (7.360-7.400) Venous Blood Partial Pressure CO2 41 mmHg (44-48) Venous Blood Partial Pressure O2 48 mmHg (35-40) Venous Blood HCO3 21 mmol/L (22-26) Venous Blood Oxygen Saturation 74 % (70-76) Venous Blood Oxygen Content 9.4 Vol % (9.0-17.0) Venous Blood Base Excess -3.5 mmol/L (-2-2) Oxygen Delivery Device NASAL CANNULA Blood Gas Liter Flow 2 L/M Imaging Last Impressions Thoracic Spine CT 08/30/1799 Signed Impressions: Service Date/Time: August 01:37 - CONCLUSION: 1. No fracture, subluxation or other acute abnormality of the thoracic spine. 2. Scoliosis and mild multifocal degenerative changes as above. 3. Complex appearing cystic structures of the upper poles of both kidneys. Comparison to any previous outside facility studies is recommended to confirm chronicity and stability. Contrast enhanced study of the abdomen suggested if felt clinically indicated, preferably MRI if there are no contraindications. Tim Jones MD Lumbar Spine CT 08/30/1799 Signed Impressions: Service Date/Time: August 01:37 - CONCLUSION: 1. No acute fracture or acute subluxation of the lumbar spine. 2. 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 3. Mild spinal and bilateral foraminal stenosis at L4/L5. 4. Mild right and moderate left foraminal stenosis at L5/S1. 5. Benign vertebral body hemangioma of L1. No concerning lumbar spine bone lesion. Tim Jones MD Head CT 08/30/1799 Signed Impressions: Service Date/Time: August 01:37 - CONCLUSION: Small frontal maddy-falcine subdural blood is unchanged. Tim Jones MD Procedures Bone marrow biopsy 08/30/2017. Objective Remarks General - elderly gentleman, awake, ill-appearing, weak HEENT - pupils are equal, reactive, sclerae are anicteric, neck is supple, no neck rigidity, no jvd, no carotid bruit, MMM CV - regular heart sounds, no murmurs Chest -clear bilateral, good air entry, no wheezes Abdomen - soft, distended and non-tender, BS present, no hepatomegaly, no splenomegaly Skin - no rashes, no cyanosis Extremities - warm, 2+ pitting edema, + peripheral pulses, no clubbing Neuro - awake, alert, oriented 3, motor 5 out of 5, moves all extremities Line: PICC A/P Problem List: (1) Anemia ICD Code: D64.9 - Anemia, unspecified Status: Acute (2) Thrombocytopenia ICD Code: D69.6 - Thrombocytopenia, unspecified Status: Acute (3) GI bleed ICD Code: K92.2 - Gastrointestinal hemorrhage, unspecified Status: Acute (4) Prostate cancer ICD Code: C61 - Malignant neoplasm of prostate Status: Resolved (5) Hypertension ICD Code: I10 - Essential (primary) hypertension Status: Chronic (6) Asthma ICD Code: J45.909 - Unspecified asthma, uncomplicated Status: Chronic (7) History of DE (myocardial infarction) ICD Code: I25.2 - Old myocardial infarction (8) Back pain ICD Code: M54.9 - Dorsalgia, unspecified Status: Acute (9) BMI 30.0-30.9,adult ICD Code: Z68.30 - Body mass index (BMI) 30.0-30.9, adult Status: Chronic Assessment and Plan 1. Septic shock secondary to E. coli septicemia. Blood cultures also growing gram-positive cocci, ? Strep, speciation is pending 2. Tumor lysis syndrome -slowly improving 3. Hyperkalemia -resolved 4. LUCA -creatinine remains elevated but urine output is improved 5. Metabolic acidosis -improved 6. Pancytopenia -worsening, requiring additional transfusion 7. Burkitt's lymphoma status post chemo 8. Meningioma 9. History of CAD 10. History of prostate cancer status post XRT 11. Muñoz's esophagus 12. GI bleed 1. Continue current antibiotics for now. Vanco dosing per pharmacy 2. Speciation is pending 3. Continue bicarb drip but reduce rate 4. Transfusion and G-CSF per oncology 5. Received rasburicase yesterday 6. Nephrology following 7. Allopurinol on hold 8. Continue to hold antihypertensives and antiplatelets 9. Supplemental O2 to keep SPO2 above 92% 10. GI prophylaxis Patient is immunosuppressed and critically ill with circulatory shock, LUCA, TLS , hyperkalemia and he is at very high risk for further deterioration. No family present at bedside. Problem Qualifiers (1) Anemia: Qualified Codes: D64.9 - Anemia, unspecified (2) Back pain: Qualified Codes: M54.9 - Dorsalgia, unspecified Felipe Larose MD Sep 08, 2017 14:38
[2017-09-08 15:16] LABS: HEMATOCRIT 23.7 % (39.0-51.0); HEMOGLOBIN 8.3 GM/DL (13.0-17.0); MEAN CELL VOLUME 85.5 FL (80.0-100.0); MEAN CORPUSCULAR HEMOGLOBIN 30.1 PG (27.0-34.0); MEAN CORPUSCULAR HGB CONC 35.2 % (32.0-36.0); MEAN PLATELET VOLUME 7.3 FL (7.0-11.0); RED BLOOD COUNT 2.77 MIL/MM3 (4.50-5.90); RED CELL DISTRIBUTION WIDTH 15.4 % (11.6-17.2); WHITE BLOOD COUNT 0.1 TH/MM3 (4.0-11.0)
[2017-09-08] MEDS: [UNRECOGNIZED DRUG - OTHER] IV SCH (15:56)
[2017-09-08] MEDS: ETOPOSIDE IV SCH (15:56)
[2017-09-08] MEDS: DOXORUBICIN IV SCH (15:56)
[2017-09-08] MEDS: VINCRISTINE IV SCH (15:56)
[2017-09-08 16:11] LABS: PLATELET COUNT 9 TH/MM3 (150-450)
[2017-09-08] MEDS: MORPHINE SULFATE 2 MG/ML SYRINGE IV PUSH PRN (23:42)
[2017-09-08] MEDS: SODIUM CHLORIDE 0.9% FLUSH 10 ML FLUSH IV FLUSH PRN (23:42)
[2017-09-09] VITALS (10 sets, daily range): BP systolic 114–145; BP diastolic 58–68; PULSE 70–88; RESP 18–22; TEMP 97.4–98.4; O2SAT 93–94
[2017-09-09] MEDS: AZTREONAM INJ 1,000 MG in SODIUM CHLORIDE 0.9% INJ 100 ML IV SCH ×3 (04:00→21:15)
[2017-09-09] MEDS: CHLORHEXIDINE GLUCONATE 2 % 1 PACK (2 CLOTHS) TOP SCH (04:00)
[2017-09-09] MEDS: SODIUM BICARBONATE 8.4% INJ 100 MEQ in SODIUM CHLOR 0.45% 1000 ML INJ 1,000 ML IV SCH (04:03)
[2017-09-09 04:41] LABS: HEMATOCRIT 24.1 % (39.0-51.0); HEMOGLOBIN 8.6 GM/DL (13.0-17.0); MEAN CELL VOLUME 85.8 FL (80.0-100.0); MEAN CORPUSCULAR HEMOGLOBIN 30.6 PG (27.0-34.0); MEAN CORPUSCULAR HGB CONC 35.7 % (32.0-36.0); RED BLOOD COUNT 2.81 MIL/MM3 (4.50-5.90); RED CELL DISTRIBUTION WIDTH 15.2 % (11.6-17.2); WHITE BLOOD COUNT 0.1 TH/MM3 (4.0-11.0)
[2017-09-09 04:44] LABS: PLATELET COUNT 5 TH/MM3 (150-450)
[2017-09-09 04:55] LABS: INTERNATIONAL NORMALIZED RATIO 1.1 RATIO; PROTHROMBIN TIME - PATIENT 11.5 SEC (9.8-11.6)
[2017-09-09 05:12] LABS: ALBUMIN 2.2 GM/DL (3.4-5.0); BICARBONATE 25.4 MEQ/L (21.0-32.0); CREATININE 2.57 MG/DL (0.60-1.30); MAGNESIUM 2.7 MG/DL (1.5-2.5); PHOSPHORUS 8.5 MG/DL (2.5-4.9); RANDOM VANCOMYCIN 14.1 COMMENT; TOTAL BILIRUBIN ADULT 1.9 MG/DL (0.2-1.0); TOTAL PROTEIN 4.4 GM/DL (6.4-8.2)
[2017-09-09 05:16] LABS: CALCIUM-PROTEIN CORRECTED 6.1 MG/DL (8.5-10.1)
[2017-09-09] MEDS ORDERED: POTASSIUM CHLOR 40 MEQ PREMIX 100 ML IV ONE (06:15)
[2017-09-09 06:44] LABS: LYMPHOCYTES 50 % (9-44); NEUTROPHIL # MANUAL DIFF 0.1 TH/MM3 (1.8-7.7); POLYS (SEG NEUTROPHILS) 50 % (16-70)
[2017-09-09] MEDS ORDERED: CALCIUM GLUCONATE INJ 1 GM in DEXTROSE 5% IN WATER 100ML INJ 100 ML IV ONE ×2 (07:10)
[2017-09-09] MEDS ORDERED: SODIUM CHLOR 0.9% 250 ML INJ 250 ML IV ONE (07:45)
[2017-09-09] MEDS: CALCIUM ACETATE 667 MG CAP PO SCH ×3 (08:41→18:09)
[2017-09-09] MEDS: predniSONE 20 MG TAB PO SCH ×2 (08:41→21:16)
[2017-09-09] MEDS: PANTOPRAZOLE SODIUM 40 MG VIAL IV PUSH SCH (08:42)
[2017-09-09] MEDS: predniSONE 50 MG TAB PO SCH ×2 (08:42→21:16)
[2017-09-09] MEDS: predniSONE 1 MG TAB PO SCH ×2 (08:42→21:16)
[2017-09-09] MEDS: BUDESONIDE-FORMOTEROL 160/4.5 MCG INHALER INH SCH ×2 (08:42→21:14)
[2017-09-09] MEDS: SODIUM CHLORIDE 0.9% FLUSH 10 ML FLUSH IVF SCH (08:43)
[2017-09-09] MEDS: SODIUM CHLORIDE 0.9% FLUSH 10 ML FLUSH IV FLUSH SCH ×2 (08:43→21:15)
[2017-09-09] MEDS: DOCUSATE SODIUM 50 MG/SENNA 8.6 MG TAB PO SCH ×2 (08:43→20:14)
[2017-09-09] MEDS: SODIUM CHLOR 0.9% 1000 ML INJ 1,000 ML IV SCH ×5 (09:15→21:38)
--- NOTE | 2017-09-09 09:24 | HHI.NPPN ---
Subjective General Problems: Edema, Hypotension Renal Failure: Acute History of Present Illness Patient is a 72 year old male with a past medical history of prostate cancer, asthma, gastroesophageal reflux, Muñoz's esophagus,hypertension, new anemia, new thrombocytopenia, rotator cuff injury, and back pain. 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 Patient was receiving Rituxan last night and developed a reaction with low grade temperature, pain, and tremor. Plan to transfer patient to intensive care unit as patient is at risk for fluid overload with blood transfusions and acute kidney injury. Nephrology is consulted for acute kidney injury with creatinine of 2.44 with a admission creatinine of 0.99. HGB is low at 7.2, Plt of 27, NA 148, CO2 14.5. Patient is resting comfortably now with his only complaint is that is dizzy with ambulation. Additional Remarks No acute complaints Review of Systems Respiratory Respiratory Remarks Denies any SOB Cardiovascular Cardiac Remarks Denies any CP Gastrointestinal GI Remarks Denies any abdominal pain Objective Data Data 09/09/17 09/10/17 19:00 07:00 Intake Total 110 ml Balance 110 ml IV Total 110 ml Vital Signs Date Time Temp Pulse Resp B/P (MAP) Pulse Ox O2 Delivery O2 Flow Rate FiO2 09/09/17 08:53 97.4 76 20 126/63 94 09/09/17 08:47 94 Nasal Cannula 2.00 09/09/17 07:00 94 Nasal Cannula 2.00 09/09/17 07:00 72 09/09/17 07:00 97.4 75 20 114/60 (78) 94 09/09/17 03:00 93 Nasal Cannula 2.00 09/09/17 03:00 70 09/09/17 03:00 97.6 70 22 123/66 (85) 93 09/08/17 23:00 61 09/08/17 23:00 97.8 61 20 111/63 (79) 93 09/08/17 23:00 93 Nasal Cannula 2.00 09/08/17 19:00 79 09/08/17 19:00 97.8 79 22 106/64 (78) 94 09/08/17 19:00 94 Nasal Cannula 2.00 09/08/17 15:28 94 Nasal Cannula 2.00 09/08/17 15:00 97.8 7 20 114/67 (83) 93 09/08/17 15:00 94 Nasal Cannula 2.00 09/08/17 15:00 80 09/08/17 11:54 97.8 73 20 114/64 93 09/08/17 11:00 93 Nasal Cannula 2.00 09/08/17 11:00 97.8 73 20 114/64 (81) 93 09/08/17 11:00 71 09/08/17 09:25 97.7 73 18 110/62 94 -: 09/09/17 0410 09/09/17 0410 Microbiology 09/08/17 Aerobic Blood Culture, Received Pending 09/08/17 Anaerobic Blood Culture, Received Pending 09/08/17 Aerobic Blood Culture, Received Pending 09/08/17 Anaerobic Blood Culture, Received Pending Physical Exam General Appearance: No Acute Distress, Comfortable Throat Throat Exam: Oral Mucosa Hinckley & Moist Pulmonary Resp Exam: Breath Sounds Equal, No Distress Cardiology CV Exam: Regular, Normal Sinus Rhythm Gastrointestinal/Abdomen GI Exam: Soft, Non-Tender, Distended Genitourinary Exam: Flank Non-Tender Integumentary Skin Exam: Clear, Warm Extremeties Extremities Exam: Moderate Edema, Dependent Edema Neurologic Neuro Exam: Alert, Awake, Oriented Psychiatric Psych Exam: Appropriate Responses Assessment/Plan Problem List: (1) Acute kidney injury ICD Codes: N17.9 - Acute kidney failure, unspecified Plan: Acute kidney injury with creatinine of 2.44 when consulted. Acute kidney injury most likely related to tumor lysis. On admission creatinine of 0.99. CT of abdomen on the with kidney with normal in size and shape. There is no mass, stone or hydronephrosis. Lobulated cysts in the upper poles of both kidneys with some benign-appearing calcification on the left Plan Renal function improving; Creatinine at 3.2 -> 3.1-> 2.5 BUN elevated with steroids. Improving UOP with 2.9L UOP. Maintain Strict I+O Will monitor renal panel and urinary output Avoid nephrotoxins. Hgb stable post transfusions Acidosis improved: Will change IVFs to NS @125cc/hour in setting of tumor lysis. Continue to monitor Na, HCO3. Continue phoslo Hypocalcemia - continues with calcium gluconate given today Initial hyperkalemia, now hypokalemia - potassium ordered today. No need for HD at this time. (2) B-cell lymphoma ICD Codes: C85.10 - Unspecified B-cell lymphoma, unspecified site Status: Acute Plan: Oncology managing (3) Anemia ICD Codes: D64.9 - Anemia, unspecified Status: Acute Plan: Plan to transfuse Problem Qualifiers (1) Anemia: Qualified Codes: D64.9 - Anemia, unspecified Victoriano Carter MD Sep 09, 2017 09:24
--- NOTE | 2017-09-09 09:30 | PD.ONC.PN ---
Subjective Subjective Remarks Afebrile overnight. Patient feeling hot and remains very fatigued. Wants to know when he will start feeling better. Good urination, but having increased scrotal swelling and wants to know if he could have a catheter. Objective Data Date Time Temp Pulse Resp B/P (MAP) Pulse Ox O2 Delivery O2 Flow Rate FiO2 09/09/17 08:53 97.4 76 20 126/63 94 09/09/17 08:47 94 Nasal Cannula 2.00 09/09/17 07:00 94 Nasal Cannula 2.00 09/09/17 07:00 72 09/09/17 07:00 97.4 75 20 114/60 (78) 94 09/09/17 03:00 93 Nasal Cannula 2.00 09/09/17 03:00 70 09/09/17 03:00 97.6 70 22 123/66 (85) 93 09/08/17 23:00 61 09/08/17 23:00 97.8 61 20 111/63 (79) 93 09/08/17 23:00 93 Nasal Cannula 2.00 09/08/17 19:00 79 09/08/17 19:00 97.8 79 22 106/64 (78) 94 09/08/17 19:00 94 Nasal Cannula 2.00 09/08/17 15:28 94 Nasal Cannula 2.00 09/08/17 15:00 97.8 7 20 114/67 (83) 93 09/08/17 15:00 94 Nasal Cannula 2.00 09/08/17 15:00 80 09/08/17 11:54 97.8 73 20 114/64 93 09/08/17 11:00 93 Nasal Cannula 2.00 09/08/17 11:00 97.8 73 20 114/64 (81) 93 09/08/17 11:00 71 09/09/17 09/09/17 09/09/17 07:00 15:00 23:00 Intake Total 3936 ml 110 ml Output Total 1250 ml Balance 2686 ml 110 ml Result Diagram: 09/09/1740909/09/17409 Laboratory Results Laboratory Tests Test 09/08/17 15:00 09/09/17 04:10 White Blood Count 0.1 TH/MM3 0.1 TH/MM3 Red Blood Count 2.77 MIL/MM3 2.81 MIL/MM3 Hemoglobin 8.3 GM/DL 8.6 GM/DL Hematocrit 23.7 % 24.1 % Mean Corpuscular Volume 85.5 FL 85.8 FL Mean Corpuscular Hemoglobin 30.1 PG 30.6 PG Mean Corpuscular Hemoglobin Concent 35.2 % 35.7 % Red Cell Distribution Width 15.4 % 15.2 % Platelet Count 9 TH/MM3 5 TH/MM3 Mean Platelet Volume 7.3 FL 8.0 FL CBC Comment AUTO DIFF Differential Total Cells Counted 10 Neutrophils % (Manual) 50 % Lymphocytes % 50 % Neutrophils # (Manual) 0.1 TH/MM3 Differential Comment FINAL DIFF MANUAL Platelet Estimate RARE Platelet Morphology Comment NORMAL Red Cell Morphology Comment NORMAL Prothrombin Time 11.5 SEC Prothromb Time International Ratio 1.1 RATIO Activated Partial Thromboplast Time 27.1 SEC Fibrinogen 164 mg/dL Blood Urea Nitrogen 123 MG/DL Creatinine 2.57 MG/DL Random Glucose 215 MG/DL Total Protein 4.4 GM/DL Albumin 2.2 GM/DL Calcium Level 5.0 MG/DL Phosphorus Level 8.5 MG/DL Magnesium Level 2.7 MG/DL Uric Acid 4.2 MG/DL Alkaline Phosphatase 84 U/L Aspartate Amino Transf (AST/SGOT) 109 U/L Alanine Aminotransferase (ALT/SGPT) 94 U/L Lactate Dehydrogenase 2853 U/L Total Bilirubin 1.9 MG/DL Sodium Level 146 MEQ/L Potassium Level 3.2 MEQ/L Chloride Level 107 MEQ/L Carbon Dioxide Level 25.4 MEQ/L Anion Gap 14 MEQ/L Estimat Glomerular Filtration Rate 25 ML/MIN Protein Corrected Calcium 6.1 MG/DL Random Vancomycin Level 14.1 COMMENT Culture Results Microbiology Date/Time Source Procedure Growth Status 09/08/17 13:20 Blood Peripheral Aerobic Blood Culture Pending Received 09/08/17 13:20 Blood Peripheral Anaerobic Blood Culture Pending Received 09/08/17 13:10 Blood Line Aerobic Blood Culture Pending Received 09/08/17 13:10 Blood Line Anaerobic Blood Culture Pending Received 09/06/17 13:26 Blood Peripheral Aerobic Blood Culture - Preliminary Escherichia Coli Resulted 09/06/17 13:26 Anaerobic Blood Culture - Final Escherichia Coli Resulted 09/06/17 13:18 Blood Peripheral Aerobic Blood Culture - Preliminary NO GROWTH IN 2 DAYS Resulted 09/06/17 13:18 Anaerobic Blood Culture - Preliminary Gram Positive Cocci Resulted Administered Medications Medications (Trade) Dose Ordered Sig/Robert Route PRN Reason Start Time Stop Time Status Last Admin Dose Admin Sodium Chloride 1,000 ml @ 100 mls/hr Q10H IV 08/29/17 16:00 09/05/17 05:44 Sodium Chloride (NS Flush) 2 ml UNSCH PRN IV FLUSH FLUSH AFTER USING IV ACCESS 08/29/17 15:45 09/08/17 23:42 Sodium Chloride (NS Flush) 2 ml BID IV FLUSH 08/29/17 21:00 09/09/17 08:43 Pantoprazole Sodium (Protonix Inj) 40 mg DAILY IV PUSH 08/30/17 09:00 09/09/17 08:42 Ondansetron HCl (Zofran Inj) 4 mg Q6H PRN IV PUSH NAUSEA OR VOMITING 08/29/17 16:00 09/07/17 17:29 Albuterol/ Ipratropium (Duoneb Neb) 1 ampule Q2HR NEB PRN INH WHEEZING 08/29/17 16:00 09/04/17 23:32 Chlorhexidine Gluconate (Chlorhexidine 2% Cloth) Taper DAILY@04 TOP 08/30/17 04:00 08/26/18 03:59 09/07/17 04:00 Senna/Docusate Sodium (Madina-Colace) 1 tab BID PO 08/29/17 21:00 09/08/17 21:21 Albuterol Sulfate (Proair Hfa Inh) 2 puff Q6H PRN INH SHORTNESS OF BREATH 08/29/17 18:00 08/30/17 10:20 Amlodipine Besylate (Norvasc) 10 mg DAILY PO 08/30/17 09:00 Future Hold 09/05/17 10:12 Budesonide/ Formoterol Fumarate (Symbicort 160-4.5 Mcg Inh) 2 puff BID INH 08/29/17 21:00 09/09/17 08:42 Ramipril (Altace) 10 mg DAILY PO 08/30/17 14:00 Future Hold 09/05/17 10:12 Morphine Sulfate (Morphine Inj) 2 mg Q4H PRN IV PUSH Pain 3 to 6 09/01/17 16:00 09/08/17 23:42 Morphine Sulfate (Morphine Inj) 4 mg Q4H PRN IV PUSH Pain 7 to 10 09/01/17 16:00 09/04/17 22:55 Allopurinol (Zyloprim) 300 mg BID PO 09/04/17 21:00 Future Hold 09/04/17 20:56 Sodium Chloride (NS Flush) DAILY IVF 09/05/17 09:00 09/04/17 22:55 Heparin Sodium (Porcine) (Heparin Central Flush) DAILY IV FLUSH 09/05/17 09:00 09/09/17 08:42 Sodium Chloride (NS Flush) UNSCH PRN IVF SEE PROTOCOL 09/04/17 16:00 09/07/17 00:12 Sodium Bicarbonate 100 meq/Sodium Chloride 1,100 ml @ 125 mls/hr Q8H48M IV 09/05/17 20:00 09/09/17 04:03 Dopamine HCl/ Dextrose 250 ml @ 0 mls/hr TITRATE PRN IV Blood Pressure Management 09/06/17 01:30 09/06/17 08:12 Norepinephrine Bitartrate 250 ml @ 7.5 mls/hr TITRATE PRN IV Blood pressure management 09/06/17 10:15 09/08/17 05:40 Calcium Acetate (Phoslo) 1,334 mg TID PO 09/06/17 13:00 09/09/17 08:41 Aztreonam 1000 mg/ Sodium Chloride 100 ml @ 200 mls/hr Q8H IV 09/06/17 12:00 09/09/17 04:00 Doxorubicin HCl 20.5 mg/ Vincristine Sulfate 0.82 mg/ Etoposide 102.5 mg/Sodium Chloride 516.195 ml @ 21.508 mls/hr Q24H IV 09/07/17 11:00 09/10/17 10:59 09/08/17 15:56 Prednisone (Deltasone) 100 mg BID PO 09/07/17 09:00 09/10/17 21:01 09/09/17 08:42 Prednisone (Deltasone) 20 mg BID PO 09/07/17 09:00 09/10/17 21:01 09/09/17 08:41 Prednisone (Deltasone) 3 mg BID PO 09/07/17 09:00 09/10/17 21:01 09/09/17 08:42 Granisetron HCl (Kytril Inj) 1 mg Q24H IV 09/07/17 08:00 09/10/17 08:01 09/08/17 13:03 Potassium Chloride 100 ml @ 25 mls/hr BOLUS ONCE IV 09/09/17 06:15 09/09/17 10:14 09/09/17 07:37 Sodium Chloride 250 ml @ 15 mls/hr ONCE ONCE IV 09/09/17 07:45 09/10/17 00:24 09/09/17 08:41 Objective Remarks GENERAL: Elderly male, upright in bed. On 2L O2 via NC SKIN: Warm and dry. HEAD: Normocephalic. EYES: No injection or drainage. NECK: Supple, trachea midline. CARDIOVASCULAR: Regular rate and rhythm RESPIRATORY: anterior bridges clear. on 2L o2 GASTROINTESTINAL: Abdomen soft, non-tender, nondistended. EXTREMITIES: No cyanosis. worsening edema in all extremities. NEUROLOGICAL: awake alert, fatigued. normal speech. no focal deficit. 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 ++also has bone pain, back pain, elevated LDH, as well as the sweats that suggests a more systemic manifestation of bone marrow disorder. ++ Nucleated red cells seen on peripheral smear. no acute blasts. 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 09/04: PICC line placement today, start R-EPOCH, give IT MTX. 09/05: Rituxan infusion complete. patient in TLS. transferred to ICU. scuba diving instructor consulted. 09/06: start EPOCH, window closing as patient is now leukopenic. give blood and platelets. 09/07: give D2 EPOCH. give 1 unit pRBC, check repeat H/H. 09/08: give D3 EPOCH. 1 unit pRBC, 1 unit platelets. 09/09: D4 EPOCH, 2 units platelets. (2) Pancytopenia ICD Codes: D61.818 - Other pancytopenia (3) Tumor lysis syndrome ICD Codes: E88.3 - Tumor lysis syndrome (4) Sepsis ICD Codes: A41.9 - Sepsis, unspecified organism Assessment 72y/o male with anemia + thrombocytopenia. history of prostate cancer, status post prostatectomy, coronary artery disease, s/p stent placement. 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 Plan 1. give 2 unit platelets. 2. continue IVF, defer to scuba diving instructor for management of bicarb drip 3. continue antibiotics. monitor BC Attending Statement The exam, history, and the medical decision-making described in the above note were completed with the assistance of the mid-level provider. I reviewed and agree with the findings presented. I attest that I had a [id number] encounter with the patient on the same day, and personally performed and documented my assessment and findings in the medical record. 1. Burkitt leukemia/lymphoma: D4 of REPOCH this afternoon. Will continue to follow daily CMP, CMP 2. Heme: cytopenia due to disease and chemotherapy. s/p transfusion of PRBC yesterday with good response. Will transfuse platelets today. 3. ID: continue broad spectrum abx vanc/aztreonam 4. TLS: improving electrolytes, renal function. Nephrology team following closely. on bicarb gtt Laurita Davila Sep 09, 2017 09:30 Zoey Sheets MD Sep 09, 2017 12:34
[2017-09-09] MEDS: ONDANSETRON HCL 4 MG/2 ML VIAL IV PUSH PRN (10:08)
[2017-09-09] MEDS ORDERED: LIDOCAINE VISCOUS 2% SOLN 15 ML UDC SWISH-SPIT PRN (10:15)
[2017-09-09] MEDS: NYSTATIN SUSP 500,000 U/5 ML CUP SWISH-SWAL SCH ×3 (12:36→21:16)
--- NOTE | 2017-09-09 12:47 | HHI.CCPN ---
Subjective Remarks/Hospital Course This is a 72-year-old male that presented to [facility] emergency room with complaints of increasing dizziness since the beginning of this month. Approximately 2 weeks ago he reported to an urgent care center and was diagnosed with benign paroxysmal vertigo and given meclizine Medrol Ebenezer and Ultram. His symptoms progressively worsened and he reported to the emergency room today, after almost falling this morning. The patient discontinued taking meloxicam shortly after the prescription was initiated, stating that it was not helping. He has noted some dark stools. He has noted that he has been bruising easily recently. Patient also complains of acute back pain that started approximately 1 week ago. Laboratory and imaging studies were performed in the ED and the patient was noted to have severe thrombocytopenia with a platelet count of 5 , anemia with a hemoglobin 7.8 . Hematology was consulted and the patient LDH and haptoglobin laboratory studies are pending . CT brain revealed small focal density region possible in the anterior falx concerning for hemorrhage . The patient's medical history is significant for an FL in 2003 at which point he had 2 stents placed. The patient reports he was put on Plavix for several weeks then discontinued, but continues to aspirin. Patient's pertinent medical history also includes hypertension well controlled with Norvasc, Muñoz's esophagus he has had follow-up endoscopies evaluated every 2 years last procedure performed approximately 1 year ago which stated no change and he continues on Nexium. He has a history of prostate cancer and has had the prostate removed and had 38 radiation treatments in 2003. Critical care medicine was consulted. Upon my evaluation the patient was hemodynamically stable BP 104/55, heart rate 91. The patient is planned for stat transfer to [facility], and is pending transfusions of 2 PRBC, 1 of PLTs. Hematology and gastroenterology have been consulted. I have discussed the patient with Dr. Hong. Subjective: 08/30: T-max 99 3. The patient continued to run low-grade fevers through the night. Patient noted to have bands 18%. Will obtain lactic acid, blood cultures pending. The patient received 2 units packed red blood cells and platelets. Repeat CBC with differential pending. MRI pending this a.m.. Small subdural noted on repeat CT brain,neurosurgery consulted. Will repeat CT brain in am. 09/03: The patient was diagnosed with Burkitt's lymphoma of bone marrow, 09/04: PICC line placement started r-EPOCH, and IT MTX. 09/05: Patient had reaction to small dose of Rituxan last night and is developing tumor lysis syndrome with worsening kidney function and was transferred back to ICU for higher level of care 09/06: Over the night patient started on dopamine, currently at 13, with map above 65. Patient feels about the same, denies chest pain, difficulty breathing , cough, abdominal pain. No bowel movement. On 5 L nasal cannula with O2 sat above 95%. present at bedside. 09/07: Patient did well over the night. Improved pressor requirement currently on norepinephrine at 5 mcg/min. Slightly improved urine output, potassium normalizing. Patient feels about the same, still very fatigued. Denies any specific complaints. 09/08: No events over the night. Patient was weaned off norepinephrine since 9 AM this morning. He is awake, feels about the same, denies shortness of breath , chest pain, palpitations. T-max of 97.9, urine output improved, 2150 mL's over the last 24 hours however he is more than 3 L positive since yesterday. He received PRBC and platelet transfusion this a.m.. 09/09: Patient did well over the night. He feels tired and had a few episodes of diarrhea. Denies chest pain, dyspnea or palpitations. Still feels nauseated. He remains off pressors. T-max of 97.8. Very good urine output. ROS - denies fever, chills, has some generalized weakness, and some dizziness, no GRANADO, no CP, palpitations, no dyspnea, cough or wheezes, no abdominal pain, + nausea, no vomiting, + diarrhea, no dysuria but feels that he is urinating a lot Objective Vital Signs Date Time Temp Pulse Resp B/P (MAP) Pulse Ox O2 Delivery O2 Flow Rate FiO2 09/09/17 11:00 94 Nasal Cannula 2.00 09/09/17 11:00 75 09/09/17 11:00 97.6 20 118/68 (85) Intake and Output 09/09/17 09/09/17 09/10/17 08:00 16:00 00:00 Intake Total 3936 ml 1129 ml Output Total 1250 ml Balance 2686 ml 1129 ml Result Diagram: 09/09/17 0410 09/09/17 0410 Other Results Blood cultures 09/08 NGTD 2 Blood cultures 09/06 E coli X 1/2 loza susceptible and viridans strep X 1/2 Microbiology Date/Time Source Procedure Growth Status 09/06/17 13:26 Blood Peripheral Aerobic Blood Culture - Final Escherichia Coli Complete 09/06/17 13:26 Anaerobic Blood Culture - Final Escherichia Coli Complete Imaging Last Impressions Thoracic Spine CT 08/30/1799 Signed Impressions: Service Date/Time: August 01:37 - CONCLUSION: 1. No fracture, subluxation or other acute abnormality of the thoracic spine. 2. Scoliosis and mild multifocal degenerative changes as above. 3. Complex appearing cystic structures of the upper poles of both kidneys. Comparison to any previous outside facility studies is recommended to confirm chronicity and stability. Contrast enhanced study of the abdomen suggested if felt clinically indicated, preferably MRI if there are no contraindications. Tim Jones MD Lumbar Spine CT 08/30/1799 Signed Impressions: Service Date/Time: August 01:37 - CONCLUSION: 1. No acute fracture or acute subluxation of the lumbar spine. 2. 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 3. Mild spinal and bilateral foraminal stenosis at L4/L5. 4. Mild right and moderate left foraminal stenosis at L5/S1. 5. Benign vertebral body hemangioma of L1. No concerning lumbar spine bone lesion. Tim Jones MD Head CT 08/30/1799 Signed Impressions: Service Date/Time: August 01:37 - CONCLUSION: Small frontal maddy-falcine subdural blood is unchanged. Tim Jones MD Procedures Bone marrow biopsy 08/30/2017. Objective Remarks General - elderly gentleman, awake, weak, ill-appearing HEENT - pupils equal, reactive, sclerae anicteric, neck supple, no rigidity, neck veins nondistended, no carotid bruit, MMM CV - regular S1, S2, no murmurs Chest - clear bilateral, good air entry, no wheezes Abdomen - soft, distended, non-tender, BS present, no hepatomegaly, no splenomegaly Skin - no rashes, no cyanosis Extremities - well perfused, warm, 2+ pitting edema, + peripheral pulses, no clubbing Neuro - awake, alert, oriented 3, motor 5 out of 5, moves all extremities Line: PICC A/P Problem List: (1) Anemia ICD Code: D64.9 - Anemia, unspecified Status: Acute (2) Thrombocytopenia ICD Code: D69.6 - Thrombocytopenia, unspecified Status: Acute (3) GI bleed ICD Code: K92.2 - Gastrointestinal hemorrhage, unspecified Status: Acute (4) Prostate cancer ICD Code: C61 - Malignant neoplasm of prostate Status: Resolved (5) Hypertension ICD Code: I10 - Essential (primary) hypertension Status: Chronic (6) Asthma ICD Code: J45.909 - Unspecified asthma, uncomplicated Status: Chronic (7) History of FL (myocardial infarction) ICD Code: I25.2 - Old myocardial infarction (8) Back pain ICD Code: M54.9 - Dorsalgia, unspecified Status: Acute (9) BMI 30.0-30.9,adult ICD Code: Z68.30 - Body mass index (BMI) 30.0-30.9, adult Status: Chronic Assessment and Plan 1. Septic shock - resolved 2. E coli and strep viridans bacteremia - repeat blood cx are pending. Etiology of E coli in blood - ? typhlitis, though abdomen not particularly tender on exam. No evidence of a UTI based on symptoms 3. Tumor lysis syndrome -slowly improving 4. Hyperkalemia -resolved 5. LUCA - creatinine trending down, good urine output 5. Metabolic acidosis - improved 6. Pancytopenia - worsening, requiring additional transfusion 7. Burkitt's lymphoma status post chemo 8. Meningioma 9. History of CAD 10. History of prostate cancer status post XRT 11. Muñoz's esophagus 12. GI bleed 13. Diarrhea - need to r/o C diff 1. Continue Vanco and aztreonam. Due to severe penicillin allergy we will likely have to continue these antibiotics for duration of treatment 2. Repeat blood cultures have no growth to date 3. Echocardiogram to rule out vegetation 4. Transfusion and G-CSF per oncology 5. Received rasburicase on Sunday 6. Nephrology following 7. Allopurinol on hold 8. Continue to hold antihypertensives and antiplatelets 9. Supplemental O2 to keep SPO2 above 92% 10. GI prophylaxis 11. Send stool for C diff 12. If any abdominal pain will get CT a/p 13. Lasix if any signs of respiratory distress Patient is immunosuppressed and critically ill with circulatory shock, LUCA, TLS , hyperkalemia and he remains at very high risk for further deterioration. Daughter and updated regarding patient's condition. Problem Qualifiers (1) Anemia: Qualified Codes: D64.9 - Anemia, unspecified (2) Back pain: Qualified Codes: M54.9 - Dorsalgia, unspecified Felipe Larose MD Sep 09, 2017 12:47
[2017-09-09] MEDS: GRANISETRON HCL 1 MG/ML VIAL IV SCH (13:53)
[2017-09-09] MEDS ORDERED: VANCOMYCIN INJ 2,000 MG in SODIUM CHLORID 0.9% 500 ML INJ 500 ML IV ONE (14:00)
[2017-09-09] MEDS: ETOPOSIDE IV SCH (18:03)
[2017-09-09] MEDS: [UNRECOGNIZED DRUG - OTHER] IV SCH (18:03)
[2017-09-09] MEDS: VINCRISTINE IV SCH (18:03)
[2017-09-09] MEDS: DOXORUBICIN IV SCH (18:03)
[2017-09-09] MEDS: MORPHINE SULFATE 2 MG/ML SYRINGE IV PUSH PRN (22:35)
[2017-09-10] VITALS (10 sets, daily range): BP systolic 122–139; BP diastolic 70–79; PULSE 66–93; RESP 18–23; TEMP 97.5–98.3; O2SAT 95–97
[2017-09-10] MEDS: CHLORHEXIDINE GLUCONATE 2 % 1 PACK (2 CLOTHS) TOP SCH (04:00)
[2017-09-10] MEDS: AZTREONAM INJ 1,000 MG in SODIUM CHLORIDE 0.9% INJ 100 ML IV SCH ×3 (05:41→21:37)
[2017-09-10 06:18] LABS: HEMATOCRIT 23.8 % (39.0-51.0); HEMOGLOBIN 8.4 GM/DL (13.0-17.0); MEAN CELL VOLUME 86.4 FL (80.0-100.0); MEAN CORPUSCULAR HEMOGLOBIN 30.5 PG (27.0-34.0); MEAN CORPUSCULAR HGB CONC 35.3 % (32.0-36.0); MEAN PLATELET VOLUME 7.2 FL (7.0-11.0); RED BLOOD COUNT 2.76 MIL/MM3 (4.50-5.90); RED CELL DISTRIBUTION WIDTH 14.9 % (11.6-17.2); WHITE BLOOD COUNT 0.1 TH/MM3 (4.0-11.0)
[2017-09-10 06:20] LABS: PLATELET COUNT 13 TH/MM3 (150-450)
[2017-09-10 06:51] LABS: ALBUMIN 2.3 GM/DL (3.4-5.0); BICARBONATE 26.3 MEQ/L (21.0-32.0); CALCIUM 5.5 MG/DL (8.5-10.1); CREATININE 1.91 MG/DL (0.60-1.30); MAGNESIUM 2.5 MG/DL (1.5-2.5); PHOSPHORUS 5.7 MG/DL (2.5-4.9); TOTAL BILIRUBIN ADULT 1.8 MG/DL (0.2-1.0); TOTAL PROTEIN 4.7 GM/DL (6.4-8.2)
[2017-09-10 06:53] LABS: CALCIUM-PROTEIN CORRECTED 6.5 MG/DL (8.5-10.1)
[2017-09-10] MEDS: SODIUM CHLOR 0.9% 1000 ML INJ 1,000 ML IV SCH (07:25)
[2017-09-10] MEDS: GRANISETRON HCL 1 MG/ML VIAL IV SCH ×2 (08:00→20:14)
--- NOTE | 2017-09-10 08:13 | HHI.CCPN ---
Subjective Remarks/Hospital Course This is a 72-year-old male that presented to [facility] emergency room with complaints of increasing dizziness since the beginning of this month. Approximately 2 weeks ago he reported to an urgent care center and was diagnosed with benign paroxysmal vertigo and given meclizine Medrol Ebenezer and Ultram. His symptoms progressively worsened and he reported to the emergency room today, after almost falling this morning. The patient discontinued taking meloxicam shortly after the prescription was initiated, stating that it was not helping. He has noted some dark stools. He has noted that he has been bruising easily recently. Patient also complains of acute back pain that started approximately 1 week ago. Laboratory and imaging studies were performed in the ED and the patient was noted to have severe thrombocytopenia with a platelet count of 5 , anemia with a hemoglobin 7.8 . Hematology was consulted and the patient LDH and haptoglobin laboratory studies are pending . CT brain revealed small focal density region possible in the anterior falx concerning for hemorrhage . The patient's medical history is significant for an RI in 2003 at which point he had 2 stents placed. The patient reports he was put on Plavix for several weeks then discontinued, but continues to aspirin. Patient's pertinent medical history also includes hypertension well controlled with Norvasc, Muñoz's esophagus he has had follow-up endoscopies evaluated every 2 years last procedure performed approximately 1 year ago which stated no change and he continues on Nexium. He has a history of prostate cancer and has had the prostate removed and had 38 radiation treatments in 2003. Critical care medicine was consulted. Upon my evaluation the patient was hemodynamically stable BP 104/55, heart rate 91. The patient is planned for stat transfer to [facility], and is pending transfusions of 2 PRBC, 1 of PLTs. Hematology and gastroenterology have been consulted. I have discussed the patient with Dr. Hong. Subjective: 08/30: T-max 99 3. The patient continued to run low-grade fevers through the night. Patient noted to have bands 18%. Will obtain lactic acid, blood cultures pending. The patient received 2 units packed red blood cells and platelets. Repeat CBC with differential pending. MRI pending this a.m.. Small subdural noted on repeat CT brain,neurosurgery consulted. Will repeat CT brain in am. 09/03: The patient was diagnosed with Burkitt's lymphoma of bone marrow, 09/04: PICC line placement started r-EPOCH, and IT MTX. 09/05: Patient had reaction to small dose of Rituxan last night and is developing tumor lysis syndrome with worsening kidney function and was transferred back to ICU for higher level of care 09/06: Over the night patient started on dopamine, currently at 13, with map above 65. Patient feels about the same, denies chest pain, difficulty breathing , cough, abdominal pain. No bowel movement. On 5 L nasal cannula with O2 sat above 95%. present at bedside. 09/07: Patient did well over the night. Improved pressor requirement currently on norepinephrine at 5 mcg/min. Slightly improved urine output, potassium normalizing. Patient feels about the same, still very fatigued. Denies any specific complaints. 09/08: No events over the night. Patient was weaned off norepinephrine since 9 AM this morning. He is awake, feels about the same, denies shortness of breath , chest pain, palpitations. T-max of 97.9, urine output improved, 2150 mL's over the last 24 hours however he is more than 3 L positive since yesterday. He received PRBC and platelet transfusion this a.m.. 09/09: Patient did well over the night. He feels tired and had a few episodes of diarrhea. Denies chest pain, dyspnea or palpitations. Still feels nauseated. He remains off pressors. T-max of 97.8. Very good urine output. 09/10: No events over the night. Patient feels the same. Denies any chest pain , shortness of breath, palpitations, abdominal pain. No diarrhea reported. T- max of 98.4. Great urine output, 3950 ml over the last 24 hours. Objective Vital Signs Date Time Temp Pulse Resp B/P (MAP) Pulse Ox O2 Delivery O2 Flow Rate FiO2 09/10/17 07:53 95 Nasal Cannula 2.00 09/10/17 07:20 98.3 73 23 139/72 (94) Intake and Output 09/10/17 09/10/17 09/11/17 08:00 16:00 00:00 Intake Total 2792 ml Output Total 1800 ml Balance 992 ml Result Diagram: 09/10/17 0530 09/10/17 0530 Other Results Blood cultures 4/28 NGTD 2 Blood cultures 09/06 E coli X 1/2 loza susceptible and viridans strep X 1/2 Imaging Last Impressions Thoracic Spine CT 08/30/1799 Signed Impressions: Service Date/Time: August 01:37 - CONCLUSION: 1. No fracture, subluxation or other acute abnormality of the thoracic spine. 2. Scoliosis and mild multifocal degenerative changes as above. 3. Complex appearing cystic structures of the upper poles of both kidneys. Comparison to any previous outside facility studies is recommended to confirm chronicity and stability. Contrast enhanced study of the abdomen suggested if felt clinically indicated, preferably MRI if there are no contraindications. Tim Jones MD Lumbar Spine CT 08/30/1799 Signed Impressions: Service Date/Time: August 01:37 - CONCLUSION: 1. No acute fracture or acute subluxation of the lumbar spine. 2. 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 3. Mild spinal and bilateral foraminal stenosis at L4/L5. 4. Mild right and moderate left foraminal stenosis at L5/S1. 5. Benign vertebral body hemangioma of L1. No concerning lumbar spine bone lesion. Tim Jones MD Head CT 08/30/1799 Signed Impressions: Service Date/Time: August 01:37 - CONCLUSION: Small frontal maddy-falcine subdural blood is unchanged. Tim Jones MD Procedures Bone marrow biopsy 08/30/2017. Objective Remarks General - elderly gentleman, awake, weak, ill-appearing HEENT - pupils equal and reactive, sclerae are anicteric, neck is supple without any rigidity, no JVD CV - regular heart sounds, no murmurs, rubs or gallops Chest - clear bilateral, good air entry, no wheezes Abdomen - soft, distended and non-tender, BS decreased Extremities -warm and well perfused, 2+ pitting edema, + peripheral pulses, PICC line RUE -site clean Neuro - awake, alert, oriented 3, motor 5 out of 5, moves all extremities Line: PICC A/P Problem List: (1) Anemia ICD Code: D64.9 - Anemia, unspecified Status: Acute (2) Thrombocytopenia ICD Code: D69.6 - Thrombocytopenia, unspecified Status: Acute (3) GI bleed ICD Code: K92.2 - Gastrointestinal hemorrhage, unspecified Status: Acute (4) Prostate cancer ICD Code: C61 - Malignant neoplasm of prostate Status: Resolved (5) Hypertension ICD Code: I10 - Essential (primary) hypertension Status: Chronic (6) Asthma ICD Code: J45.909 - Unspecified asthma, uncomplicated Status: Chronic (7) History of RI (myocardial infarction) ICD Code: I25.2 - Old myocardial infarction (8) Back pain ICD Code: M54.9 - Dorsalgia, unspecified Status: Acute (9) BMI 30.0-30.9,adult ICD Code: Z68.30 - Body mass index (BMI) 30.0-30.9, adult Status: Chronic Assessment and Plan 1. Septic shock - resolved 2. E coli and strep viridans bacteremia - repeat blood cx are negative to date. Etiology of E coli in blood - ? typhlitis, though abdomen not particularly tender on exam. No evidence of a UTI based on symptoms 3. Tumor lysis syndrome - improving 4. Hyperkalemia - resolved 5. LUCA - creatinine trending down, good urine output 5. Metabolic acidosis - improved 6. Pancytopenia - worsening, requiring additional transfusion 7. Burkitt's lymphoma receiving chemo 8. Meningioma 9. History of CAD 10. History of prostate cancer status post XRT 11. Muñoz's esophagus 12. GI bleed 13. Diarrhea - need to r/o C diff 1. Continue Vanco and aztreonam. Due to severe penicillin allergy we will likely have to continue these antibiotics for duration of treatment. Will need at least 2 week course or longer if severe neutropenia persists 2. Repeat blood cultures have no growth to date 3. Echocardiogram to rule out vegetation 4. Transfusion and G-CSF per oncology 5. Received rasburicase on Sunday 6. Nephrology following 7. Allopurinol on hold 8. Continue to hold antihypertensives and antiplatelets 9. Supplemental O2 to keep SPO2 above 92% 10. GI prophylaxis 11. Send stool for C diff 12. If any abdominal pain will get CT a/p 13. Lasix if any signs of respiratory distress 14. Change saline to LR 15. Replete potassium and calcium Please call back with any questions or if additional help is needed. We will transition care to hospitalist service. Problem Qualifiers (1) Anemia: Qualified Codes: D64.9 - Anemia, unspecified (2) Back pain: Qualified Codes: M54.9 - Dorsalgia, unspecified Felipe Larose MD Sep 10, 2017 08:13
[2017-09-10 08:17] LABS: LYMPHOCYTES 70 % (9-44); POLYS (SEG NEUTROPHILS) 30 % (16-70)
[2017-09-10] MEDS: BUDESONIDE-FORMOTEROL 160/4.5 MCG INHALER INH SCH ×2 (08:57→21:00)
[2017-09-10] MEDS: NYSTATIN SUSP 500,000 U/5 ML CUP SWISH-SWAL SCH ×4 (08:58→21:39)
[2017-09-10] MEDS: CALCIUM ACETATE 667 MG CAP PO SCH ×3 (08:58→17:49)
[2017-09-10] MEDS: predniSONE 50 MG TAB PO SCH ×2 (08:58→21:38)
[2017-09-10] MEDS: predniSONE 1 MG TAB PO SCH ×2 (08:58→21:38)
[2017-09-10] MEDS: PANTOPRAZOLE SODIUM 40 MG VIAL IV PUSH SCH (08:58)
[2017-09-10] MEDS: predniSONE 20 MG TAB PO SCH ×2 (08:58→21:38)
[2017-09-10] MEDS: SODIUM CHLORIDE 0.9% FLUSH 10 ML FLUSH IV FLUSH SCH ×2 (08:59→21:38)
[2017-09-10] MEDS: SODIUM CHLORIDE 0.9% FLUSH 10 ML FLUSH IVF SCH (08:59)
[2017-09-10] MEDS: LACTATED RINGER'S 1000 ML INJ 1,000 ML IV SCH ×3 (09:00→17:50)
[2017-09-10] MEDS ORDERED: CALCIUM GLUCONATE INJ 1 GM in DEXTROSE 5% IN WATER 100ML INJ 100 ML IV ONE ×2 (09:00)
[2017-09-10] MEDS ORDERED: POTASSIUM CHLOR 40 MEQ PREMIX 100 ML IV ONE (09:00)
[2017-09-10] MEDS: DOCUSATE SODIUM 50 MG/SENNA 8.6 MG TAB PO SCH ×2 (09:00→21:39)
--- NOTE | 2017-09-10 09:18 | HHI.NPPN ---
Subjective General Problems: Edema, Hypotension Renal Failure: Acute History of Present Illness Patient is a 72 year old male with a past medical history of prostate cancer, asthma, gastroesophageal reflux, Muñoz's esophagus,hypertension, new anemia, new thrombocytopenia, rotator cuff injury, and back pain. 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 Patient was receiving Rituxan last night and developed a reaction with low grade temperature, pain, and tremor. Plan to transfer patient to intensive care unit as patient is at risk for fluid overload with blood transfusions and acute kidney injury. Nephrology is consulted for acute kidney injury with creatinine of 2.44 with a admission creatinine of 0.99. HGB is low at 7.2, Plt of 27, NA 148, CO2 14.5. Patient is resting comfortably now with his only complaint is that is dizzy with ambulation. Additional Remarks Resting comfortably. Denies any acute problems. Lower extremity edema. (Janet Ribeiro) Review of Systems Respiratory Respiratory Remarks Denies any SOB (Janet Ribeiro) Cardiovascular Cardiac Remarks Denies any CP (Janet Ribeiro) Gastrointestinal GI Remarks Denies any abdominal pain (Janet Ribeiro) Objective Data Data 09/10/17 09/11/17 18:59 06:59 Intake Total 483 ml Balance 483 ml IV Total 483 ml Vital Signs Date Time Temp Pulse Resp B/P (MAP) Pulse Ox O2 Delivery O2 Flow Rate FiO2 09/10/17 07:53 95 Nasal Cannula 2.00 09/10/17 07:20 98.3 73 23 139/72 (94) 96 09/10/17 07:20 73 09/10/17 07:19 96 Nasal Cannula 3.00 09/10/17 04:52 16 09/10/17 03:00 98.1 66 18 122/71 (88) 96 09/10/17 03:00 96 Nasal Cannula 2.00 09/10/17 03:00 66 09/09/17 23:00 71 09/09/17 23:00 98.4 88 18 122/64 (83) 94 09/09/17 23:00 94 Nasal Cannula 2.00 09/09/17 20:42 94 Nasal Cannula 2.00 09/09/17 19:00 94 Nasal Cannula 2.00 09/09/17 19:00 73 09/09/17 19:00 98.3 85 18 145/66 (92) 94 09/09/17 15:00 94 Nasal Cannula 2.00 09/09/17 15:00 78 09/09/17 15:00 97.5 72 20 130/65 (86) 94 09/09/17 11:00 94 Nasal Cannula 2.00 09/09/17 11:00 75 09/09/17 11:00 97.6 70 20 118/68 (85) 94 09/09/17 09:36 97.5 77 20 120/58 94 (Janet Ribeiro) -: 09/10/17 0530 09/10/17 0530 Imaging Last Impressions Chest X-Ray 09/05/17 0000 Signed Impressions: Service Date/Time: Tuesday, September 05, 2017 01:50 - CONCLUSION: 1. Right PICC line in superior vena cava. Subsegmental basilar airspace disease. No effusion or pneumothorax. Cory Camarena MD PICC Line Insertion 09/04/17 0600 Signed Impressions: Service Date/Time: Monday, September 04, 2017 15:12 - CONCLUSION: 1. Uncomplicated central venous Power PICC line placement. 2. The PICC line can be used immediately. Santy Burciaga Jr., MD Lumbar Puncture Fluoroscopy 09/04/17 0000 Signed Impressions: Service Date/Time: Monday, September 04, 2017 15:12 - CONCLUSION: Uncomplicated fluoroscopically guided lumbar puncture with pressures as above. Intrathecal methotrexate was administered. Santy Burciaga Jr., MD Chest CT 09/01/17 0000 Signed Impressions: Service Date/Time: Friday, September 01, 2017 16:48 - CONCLUSION: 1. No definite evidence for metastatic disease to the thorax. 2. 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 3. Scattered atelectasis and scarring in the lungs. 4. Moderate coronary calcifications. Cory Camarena MD Abdomen/Pelvis CT 09/01/17 0000 Signed Impressions: Service Date/Time: Friday, September 01, 2017 16:48 - CONCLUSION: 1. Post surgical changes with findings of cholecystectomy and prostatectomy. 2. Scattered diverticular disease of the colon without diverticulitis. 3. Lobulated cyst in the upper poles of both kidneys with some calcification on the left. 4. Retroperitoneal fat herniates through the left hemidiaphragm into the posterior left lung base. 5. No acute intraperitoneal or pelvic process to explain current clinical symptoms Gavin Lynn MD Bone Biopsy CT 08/30/17 1535 Signed Impressions: Service Date/Time: August 16:19 - CONCLUSION: 1. Uncomplicated CT guided bone marrow aspirate. 2. Uncomplicated CT guided bone marrow biopsy. Srikanth Ambrosio MD Thoracic Spine CT 08/30/1799 Signed Impressions: Service Date/Time: August 01:37 - CONCLUSION: 1. No fracture, subluxation or other acute abnormality of the thoracic spine. 2. Scoliosis and mild multifocal degenerative changes as above. 3. Complex appearing cystic structures of the upper poles of both kidneys. Comparison to any previous outside facility studies is recommended to confirm chronicity and stability. Contrast enhanced study of the abdomen suggested if felt clinically indicated, preferably MRI if there are no contraindications. Tim Jones MD Lumbar Spine CT 08/30/1799 Signed Impressions: Service Date/Time: August 01:37 - CONCLUSION: 1. No acute fracture or acute subluxation of the lumbar spine. 2. 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 3. Mild spinal and bilateral foraminal stenosis at L4/L5. 4. Mild right and moderate left foraminal stenosis at L5/S1. 5. Benign vertebral body hemangioma of L1. No concerning lumbar spine bone lesion. Tim Jones MD Head CT 08/30/170 Signed Impressions: Service Date/Time: August 01:37 - CONCLUSION: Small frontal maddy-falcine subdural blood is unchanged. Tim Jones MD Carotid Artery Ultrasound 08/30/17 0000 Signed Impressions: Service Date/Time: August 07:52 - CONCLUSION: 1. Diffuse calcified plaque throughout carotid arteries bilaterally with resultant moderate, 50-69%%, stenosis of the internal carotid arteries bilaterally and likely moderate stenosis of the left common carotid artery. 2. Antegrade vertebral artery flow bilaterally. Lopez Taylor MD Brain MRI 08/30/17 0000 Signed Impressions: Service Date/Time: August 09:27 - CONCLUSION: 1. Right frontal parafalcine abnormality on CT exam corresponds to a small meningioma. No definitive intra-or extra-axial hemorrhage. Lopez Taylor MD (Janet Ribeiro) Physical Exam General Appearance: No Acute Distress, Comfortable (Janet Ribeiro) Throat Throat Exam: Oral Mucosa [place] & Moist (Janet Ribeiro) Pulmonary Resp Exam: Breath Sounds Equal, No Distress Resp Remarks O2 NC 5 liters (Janet Ribeiro) Cardiology CV Exam: Regular, Normal Sinus Rhythm (Janet Ribeiro) Gastrointestinal/Abdomen GI Exam: Soft, Non-Tender, Distended (Janet Ribeiro) Genitourinary Exam: Flank Non-Tender (Janet Ribeiro) Integumentary Skin Exam: Clear, Warm (Janet Ribeiro) Extremeties Extremities Exam: Moderate Edema, Dependent Edema (Janet Ribeiro) Neurologic Neuro Exam: Alert, Awake, Oriented (Janet Ribeiro) Psychiatric Psych Exam: Appropriate Responses (Janet Ribeiro) Assessment/Plan Problem List: (1) Acute kidney injury ICD Codes: N17.9 - Acute kidney failure, unspecified Plan: Acute kidney injury with creatinine of 2.44 when consulted. Acute kidney injury most likely related to tumor lysis. On admission creatinine of 0.99. CT of abdomen on the with kidney with normal in size and shape. There is no mass, stone or hydronephrosis. Lobulated cysts in the upper poles of both kidneys with some benign-appearing calcification on the left Creatinine at 1.91 from 2.57 Improving UOP with 3.9 L UOP. Plan Maintain Strict I+O Will monitor renal panel and urinary output Avoid nephrotoxins. Hgb stable post transfusions Continue IVFs to NS @125cc/hour in setting of tumor lysis. Continue phoslo Hypocalcemia - continues with calcium gluconate given today Initial hyperkalemia, now hypokalemia - potassium ordered (2) B-cell lymphoma ICD Codes: C85.10 - Unspecified B-cell lymphoma, unspecified site Status: Acute Plan: Oncology managing (3) Anemia ICD Codes: D64.9 - Anemia, unspecified Status: Acute Plan: Monitoring (Janet Ribeiro) Problem List: (1) Acute kidney injury ICD Codes: N17.9 - Acute kidney failure, unspecified Plan: Acute kidney injury with creatinine of 2.44 when consulted. Acute kidney injury most likely related to tumor lysis. On admission creatinine of 0.99. CT of abdomen on the with kidney with normal in size and shape. There is no mass, stone or hydronephrosis. Lobulated cysts in the upper poles of both kidneys with some benign-appearing calcification on the left Creatinine at 1.91 from 2.57 Improving UOP with 3.9 L UOP. Plan Maintain Strict I+O Will monitor renal panel and urinary output Avoid nephrotoxins. Hgb stable post transfusions Continue IVFs to NS @125cc/hour in setting of tumor lysis. Continue phoslo Hypocalcemia - continues with calcium gluconate given today Initial hyperkalemia, now hypokalemia - potassium ordered. Patient seen and examined, agree with above. Creatinine is better and K is low. Continue IVF. (2) B-cell lymphoma ICD Codes: C85.10 - Unspecified B-cell lymphoma, unspecified site Status: Acute Plan: Oncology managing (3) Anemia ICD Codes: D64.9 - Anemia, unspecified Status: Acute Plan: Monitoring (Demi Mendez MD) Problem Qualifiers (1) Anemia: Qualified Codes: D64.9 - Anemia, unspecified Janet Ribeiro Sep 10, 2017 09:18 Demi Mnedez MD September 11, 2017 16:24
[2017-09-10] MEDS ORDERED: POTASSIUM CHLORIDE 25 MEQ EFFERVESCENT TAB PO ONE (12:15)
--- NOTE | 2017-09-10 12:18 | PD.ONC.PN ---
Subjective Subjective Remarks Afebrile overnight. Patient resting in bed. Remains fatigued and swollen. very little appetite. and daughter at bedside trying to keep him encouraged. Objective Data Date Time Temp Pulse Resp B/P (MAP) Pulse Ox O2 Delivery O2 Flow Rate FiO2 09/10/17 11:02 97.6 72 21 124/75 (91) 96 09/10/17 11:01 72 09/10/17 11:01 96 Nasal Cannula 3.00 09/10/17 07:53 95 Nasal Cannula 2.00 09/10/17 07:20 98.3 73 23 139/72 (94) 96 09/10/17 07:20 73 09/10/17 07:19 96 Nasal Cannula 3.00 09/10/17 04:52 16 09/10/17 03:00 98.1 66 18 122/71 (88) 96 09/10/17 03:00 96 Nasal Cannula 2.00 09/10/17 03:00 66 09/09/17 23:00 71 09/09/17 23:00 98.4 88 18 122/64 (83) 94 09/09/17 23:00 94 Nasal Cannula 2.00 09/09/17 20:42 94 Nasal Cannula 2.00 09/09/17 19:00 94 Nasal Cannula 2.00 09/09/17 19:00 73 09/09/17 19:00 98.3 85 18 145/66 (92) 94 09/09/17 15:00 94 Nasal Cannula 2.00 09/09/17 15:00 78 09/09/17 15:00 97.5 72 20 130/65 (86) 94 09/10/17 09/10/17 09/10/17 07:00 15:00 23:00 Intake Total 2692 ml 593 ml Output Total 1800 ml Balance 892 ml 593 ml Result Diagram: 09/10/17 0530 09/10/17 0530 Laboratory Results Laboratory Tests Test 09/10/17 05:30 White Blood Count 0.1 TH/MM3 Red Blood Count 2.76 MIL/MM3 Hemoglobin 8.4 GM/DL Hematocrit 23.8 % Mean Corpuscular Volume 86.4 FL Mean Corpuscular Hemoglobin 30.5 PG Mean Corpuscular Hemoglobin Concent 35.3 % Red Cell Distribution Width 14.9 % Platelet Count 13 TH/MM3 Mean Platelet Volume 7.2 FL CBC Comment AUTO DIFF Differential Total Cells Counted 10 Neutrophils % (Manual) 30 % Lymphocytes % 70 % Neutrophils # (Manual) 0.0 TH/MM3 Differential Comment FINAL DIFF MANUAL Platelet Estimate RARE Platelet Morphology Comment NORMAL Red Cell Morphology Comment NORMAL Blood Urea Nitrogen 99 MG/DL Creatinine 1.91 MG/DL Random Glucose 200 MG/DL Total Protein 4.7 GM/DL Albumin 2.3 GM/DL Calcium Level 5.5 MG/DL Phosphorus Level 5.7 MG/DL Magnesium Level 2.5 MG/DL Uric Acid 0.7 MG/DL Alkaline Phosphatase 92 U/L Aspartate Amino Transf (AST/SGOT) 87 U/L Alanine Aminotransferase (ALT/SGPT) 117 U/L Total Bilirubin 1.8 MG/DL Sodium Level 148 MEQ/L Potassium Level 3.2 MEQ/L Chloride Level 111 MEQ/L Carbon Dioxide Level 26.3 MEQ/L Anion Gap 11 MEQ/L Estimat Glomerular Filtration Rate 35 ML/MIN Protein Corrected Calcium 6.5 MG/DL Culture Results Microbiology Date/Time Source Procedure Growth Status 09/08/17 13:20 Blood Peripheral Aerobic Blood Culture - Preliminary NO GROWTH IN 2 DAYS Resulted 09/08/17 13:20 Blood Peripheral Anaerobic Blood Culture - Preliminary NO GROWTH IN 2 DAYS Resulted 09/08/17 13:10 Blood Line Aerobic Blood Culture - Preliminary NO GROWTH IN 2 DAYS Resulted 09/08/17 13:10 Blood Line Anaerobic Blood Culture - Preliminary NO GROWTH IN 2 DAYS Resulted Administered Medications Medications (Trade) Dose Ordered Sig/Robert Route PRN Reason Start Time Stop Time Status Last Admin Dose Admin Sodium Chloride (NS Flush) 2 ml UNSCH PRN IV FLUSH FLUSH AFTER USING IV ACCESS 08/29/17 15:45 09/08/17 23:42 Sodium Chloride (NS Flush) 2 ml BID IV FLUSH 08/29/17 21:00 09/10/17 08:59 Pantoprazole Sodium (Protonix Inj) 40 mg DAILY IV PUSH 08/30/17 09:00 09/10/17 08:58 Ondansetron HCl (Zofran Inj) 4 mg Q6H PRN IV PUSH NAUSEA OR VOMITING 08/29/17 16:00 09/09/17 10:08 Albuterol/ Ipratropium (Duoneb Neb) 1 ampule Q2HR NEB PRN INH WHEEZING 08/29/17 16:00 09/04/17 23:32 Chlorhexidine Gluconate (Chlorhexidine 2% Cloth) Taper DAILY@04 TOP 08/30/17 04:00 08/26/18 03:59 09/07/17 04:00 Senna/Docusate Sodium (Madina-Colace) 1 tab BID PO 08/29/17 21:00 09/08/17 21:21 Albuterol Sulfate (Proair Hfa Inh) 2 puff Q6H PRN INH SHORTNESS OF BREATH 08/29/17 18:00 08/30/17 10:20 Amlodipine Besylate (Norvasc) 10 mg DAILY PO 08/30/17 09:00 Future Hold 09/05/17 10:12 Budesonide/ Formoterol Fumarate (Symbicort 160-4.5 Mcg Inh) 2 puff BID INH 08/29/17 21:00 09/10/17 08:57 Ramipril (Altace) 10 mg DAILY PO 08/30/17 14:00 Future Hold 09/05/17 10:12 Morphine Sulfate (Morphine Inj) 2 mg Q4H PRN IV PUSH Pain 3 to 6 09/01/17 16:00 09/09/17 22:35 Morphine Sulfate (Morphine Inj) 4 mg Q4H PRN IV PUSH Pain 7 to 10 09/01/17 16:00 09/04/17 22:55 Allopurinol (Zyloprim) 300 mg BID PO 09/04/17 21:00 Future Hold 09/04/17 20:56 Sodium Chloride (NS Flush) DAILY IVF 09/05/17 09:00 09/04/17 22:55 Heparin Sodium (Porcine) (Heparin Central Flush) DAILY IV FLUSH 09/05/17 09:00 09/09/17 08:42 Sodium Chloride (NS Flush) UNSCH PRN IVF SEE PROTOCOL 09/04/17 16:00 09/07/17 00:12 Norepinephrine Bitartrate 250 ml @ 7.5 mls/hr TITRATE PRN IV Blood pressure management 09/06/17 10:15 09/08/17 05:40 Calcium Acetate (Phoslo) 1,334 mg TID PO 09/06/17 13:00 09/10/17 08:58 Aztreonam 1000 mg/ Sodium Chloride 100 ml @ 200 mls/hr Q8H IV 09/06/17 12:00 09/10/17 12:07 Prednisone (Deltasone) 100 mg BID PO 09/07/17 09:00 09/10/17 21:01 09/10/17 08:58 Prednisone (Deltasone) 20 mg BID PO 09/07/17 09:00 09/10/17 21:01 09/10/17 08:58 Prednisone (Deltasone) 3 mg BID PO 09/07/17 09:00 09/10/17 21:01 09/10/17 08:58 Nystatin (Mycostatin Liq) 5 ml QID SWISH-SWAL 09/09/17 13:00 09/10/17 08:58 Objective Remarks GENERAL: Elderly male, sitting up in bed, on 3L O2 via NC SKIN: Warm and dry. HEAD: Normocephalic. EYES: No injection or drainage. NECK: Supple, trachea midline. CARDIOVASCULAR: Regular rate and rhythm RESPIRATORY: diminished at bases, anterior bridges clear. GASTROINTESTINAL: Abdomen soft, non-tender, nondistended. EXTREMITIES: No cyanosis. persistent edema in all extremities. NEUROLOGICAL: no obvious focal deficit. 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 ++also has bone pain, back pain, elevated LDH, as well as the sweats that suggests a more systemic manifestation of bone marrow disorder. ++ Nucleated red cells seen on peripheral smear. no acute blasts. 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 09/04: PICC line placement today, start R-EPOCH, give IT MTX. 09/05: Rituxan infusion complete. patient in TLS. transferred to ICU. peanut separator consulted. 09/06: start EPOCH, window closing as patient is now leukopenic. give blood and platelets. 09/07: give D2 EPOCH. give 1 unit pRBC, check repeat H/H. 09/08: give D3 EPOCH. 1 unit pRBC, 1 unit platelets. 09/09: D4 EPOCH, 2 units platelets. 08.31: D5--finish 4th bag of EPOCH, give Cytoxan this evening. (2) Pancytopenia ICD Codes: D61.818 - Other pancytopenia (3) Tumor lysis syndrome ICD Codes: E88.3 - Tumor lysis syndrome (4) Sepsis ICD Codes: A41.9 - Sepsis, unspecified organism Assessment 72y/o male with anemia + thrombocytopenia. history of prostate cancer, status post prostatectomy, coronary artery disease, s/p stent placement. 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 Plan 1. no transfusion needed at present. 2. will order PO potassium as there is some difficulty obtaining IV potassium and the patient is able to tolerate PO 3. continue IVF per peanut separator 4. continue antibiotics. 5. monitor blood cultures. Attending Statement The exam, history, and the medical decision-making described in the above note were completed with the assistance of the mid-level provider. I reviewed and agree with the findings presented. I attest that I had a [id number] encounter with the patient on the same day, and personally performed and documented my assessment and findings in the medical record. Pt to complete C1D5 R - Epoch Acute tumor lysis syndrome with first treatment Abx for bacteremia, second set cultures negative, pt afebrile. Anticipate DC Prednisone which was part of chemo. Start GCSF 24 hours after completion chemo. Blood transfusion requirement continue Anticipate fatigue and cytopenias the week after chemo administration. Poor prognosis due to positive CSF, s/p first tx with IT MTX. Discussed possible options Katelin for twice weekly tx or whole brain XRT [facility] with [facility] there to receive him when stable enough for DC Laurita Davila Sep 10, 2017 12:18 Shahla Duron MD Sep 10, 2017 19:12
[2017-09-10] MEDS ORDERED: SODIUM CHLOR 0.9% IV ONE (15:00)
[2017-09-10] MEDS ORDERED: CYCLOPHOSPHAMIDE IV ONE (15:00)
[2017-09-10] MEDS: SODIUM CHLORIDE 0.9% FLUSH 10 ML FLUSH IVF PRN (21:58)
[2017-09-11] VITALS (13 sets, daily range): BP systolic 135–157; BP diastolic 70–84; PULSE 70–80; RESP 20; TEMP 97.6–98.1; O2SAT 92–96
[2017-09-11] MEDS: MORPHINE SULFATE 4 MG/ML INJ IV PUSH PRN (00:35)
[2017-09-11] MEDS: CHLORHEXIDINE GLUCONATE 2 % 1 PACK (2 CLOTHS) TOP SCH (04:00)
[2017-09-11] MEDS: AZTREONAM INJ 1,000 MG in SODIUM CHLORIDE 0.9% INJ 100 ML IV SCH ×3 (04:33→20:47)
[2017-09-11 05:12] LABS: HEMATOCRIT 23.6 % (39.0-51.0); HEMOGLOBIN 8.4 GM/DL (13.0-17.0); MEAN CELL VOLUME 86.1 FL (80.0-100.0); MEAN CORPUSCULAR HEMOGLOBIN 30.5 PG (27.0-34.0); MEAN CORPUSCULAR HGB CONC 35.4 % (32.0-36.0); MEAN PLATELET VOLUME 7.9 FL (7.0-11.0); RED BLOOD COUNT 2.74 MIL/MM3 (4.50-5.90); RED CELL DISTRIBUTION WIDTH 14.5 % (11.6-17.2)
[2017-09-11 05:21] LABS: PLATELET COUNT 5 TH/MM3 (150-450)
[2017-09-11 05:54] LABS: ALBUMIN 2.2 GM/DL (3.4-5.0); BICARBONATE 27.4 MEQ/L (21.0-32.0); CREATININE 1.51 MG/DL (0.60-1.30); MAGNESIUM 2.3 MG/DL (1.5-2.5); RANDOM VANCOMYCIN 13.1 COMMENT; TOTAL BILIRUBIN ADULT 1.4 MG/DL (0.2-1.0); TOTAL PROTEIN 4.7 GM/DL (6.4-8.2)
[2017-09-11 05:57] LABS: CALCIUM-PROTEIN CORRECTED 7.1 MG/DL (8.5-10.1)
[2017-09-11] MEDS: LACTATED RINGER'S 1000 ML INJ 1,000 ML IV SCH (07:18)
[2017-09-11 07:49] LABS: LYMPHOCYTES 95 % (9-44); POLYS (SEG NEUTROPHILS) 5 % (16-70)
[2017-09-11 07:53] LABS: WHITE BLOOD COUNT 0.1 TH/MM3 (4.0-11.0)
[2017-09-11] MEDS ORDERED: diphenhydrAMINE HCL 25 MG CAP PO PRN (08:30)
[2017-09-11] MEDS ORDERED: SODIUM CHLOR 0.9% 250 ML INJ 250 ML IV ONE (08:30)
[2017-09-11] MEDS: SODIUM CHLORIDE 0.9% FLUSH 10 ML FLUSH IV FLUSH SCH ×2 (08:58→20:47)
[2017-09-11] MEDS: PANTOPRAZOLE SODIUM 40 MG VIAL IV PUSH SCH (08:58)
[2017-09-11] MEDS: SODIUM CHLORIDE 0.9% FLUSH 10 ML FLUSH IVF SCH (08:58)
[2017-09-11] MEDS: CALCIUM ACETATE 667 MG CAP PO SCH ×2 (08:58→13:19)
[2017-09-11] MEDS: NYSTATIN SUSP 500,000 U/5 ML CUP SWISH-SWAL SCH ×4 (08:58→20:47)
[2017-09-11] MEDS: BUDESONIDE-FORMOTEROL 160/4.5 MCG INHALER INH SCH ×2 (08:59→20:49)
[2017-09-11] MEDS: DOCUSATE SODIUM 50 MG/SENNA 8.6 MG TAB PO SCH ×2 (08:59→20:48)
[2017-09-11] MEDS ORDERED: SODIUM CHLOR 0.45% 1000 ML INJ 1,000 ML IV SCH (09:00)
[2017-09-11] MEDS ORDERED: POTASSIUM CHLORIDE 20 MEQ CONTROLLED RELEASE TAB PO ONE ×2 (09:00→20:30)
--- NOTE | 2017-09-11 09:06 | HHI.PR ---
Subjective Remarks Patient states he feels about the same. He is forcing himself to eat but sometimes feels like has to chew a lot before he can swallow his food. He denies any chest pains, shortness of breath, nausea or vomiting. Discussed with RN and patient did not like the effervescent potassium. Objective Vitals Vital Signs Date Time Temp Pulse Resp B/P (MAP) Pulse Ox O2 Delivery O2 Flow Rate FiO2 09/11/17 07:25 97.7 72 20 135/71 (92) 96 09/11/17 07:25 72 09/11/17 07:24 95 Nasal Cannula 2.00 09/11/17 04:00 95 Nasal Cannula 2.00 09/11/17 03:00 98.0 72 20 153/84 (107) 95 09/11/17 03:00 72 09/10/17 23:00 73 09/10/17 23:00 96 Nasal Cannula 2.00 09/10/17 23:00 97.8 73 20 136/70 (92) 96 09/10/17 22:22 96 Nasal Cannula 2.00 09/10/17 20:00 93 09/10/17 19:00 72 09/10/17 19:00 98.0 77 20 139/78 (98) 97 09/10/17 19:00 95 Nasal Cannula 2.00 09/10/17 15:07 97.5 77 20 138/79 (98) 96 09/10/17 15:07 77 09/10/17 15:06 96 Nasal Cannula 3.00 09/10/17 11:02 97.6 72 21 124/75 (91) 96 09/10/17 11:01 72 09/10/17 11:01 96 Nasal Cannula 3.00 I/O 09/10/17 09/10/17 09/10/17 09/11/17 09/11/17 09/11/17 07:00 15:00 23:00 07:00 15:00 23:00 Intake Total 2692 ml 1493 ml 1639 ml 1880 ml 250 ml Output Total 1800 ml 2285 ml 2000 ml Balance 892 ml 1493 ml -646 ml -120 ml 250 ml Intake Oral 720 ml 300 ml 780 ml IV Total 1972 ml 1493 ml 1339 ml 1100 ml 250 ml Output Urine Total 1800 ml 2285 ml 2000 ml # Bowel Movements 0 1 0 Result Diagram: 09/11/17 0440 09/11/17 0440 Imaging Last Impressions Chest X-Ray 09/05/17 0000 Signed Impressions: Service Date/Time: Tuesday, September 05, 2017 01:50 - CONCLUSION: 1. Right PICC line in superior vena cava. Subsegmental basilar airspace disease. No effusion or pneumothorax. Cory Camarena MD PICC Line Insertion 09/04/17 0600 Signed Impressions: Service Date/Time: Monday, September 04, 2017 15:12 - CONCLUSION: 1. Uncomplicated central venous Power PICC line placement. 2. The PICC line can be used immediately. Santy Burciaga Jr., MD Lumbar Puncture Fluoroscopy 09/04/17 0000 Signed Impressions: Service Date/Time: Monday, September 04, 2017 15:12 - CONCLUSION: Uncomplicated fluoroscopically guided lumbar puncture with pressures as above. Intrathecal methotrexate was administered. Santy Burciaga Jr., MD Chest CT 09/01/17 0000 Signed Impressions: Service Date/Time: Friday, September 01, 2017 16:48 - CONCLUSION: 1. No definite evidence for metastatic disease to the thorax. 2. 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 3. Scattered atelectasis and scarring in the lungs. 4. Moderate coronary calcifications. Cory Camarena MD Abdomen/Pelvis CT 09/01/17 0000 Signed Impressions: Service Date/Time: Friday, September 01, 2017 16:48 - CONCLUSION: 1. Post surgical changes with findings of cholecystectomy and prostatectomy. 2. Scattered diverticular disease of the colon without diverticulitis. 3. Lobulated cyst in the upper poles of both kidneys with some calcification on the left. 4. Retroperitoneal fat herniates through the left hemidiaphragm into the posterior left lung base. 5. No acute intraperitoneal or pelvic process to explain current clinical symptoms Gavin Lynn MD Bone Biopsy CT 08/30/17 1535 Signed Impressions: Service Date/Time: August 16:19 - CONCLUSION: 1. Uncomplicated CT guided bone marrow aspirate. 2. Uncomplicated CT guided bone marrow biopsy. Srikanth Ambrosio MD Thoracic Spine CT 08/30/17 0100 Signed Impressions: Service Date/Time: August 01:37 - CONCLUSION: 1. No fracture, subluxation or other acute abnormality of the thoracic spine. 2. Scoliosis and mild multifocal degenerative changes as above. 3. Complex appearing cystic structures of the upper poles of both kidneys. Comparison to any previous outside facility studies is recommended to confirm chronicity and stability. Contrast enhanced study of the abdomen suggested if felt clinically indicated, preferably MRI if there are no contraindications. Tim Jones MD Lumbar Spine CT 08/30/170 Signed Impressions: Service Date/Time: August 01:37 - CONCLUSION: 1. No acute fracture or acute subluxation of the lumbar spine. 2. 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 3. Mild spinal and bilateral foraminal stenosis at L4/L5. 4. Mild right and moderate left foraminal stenosis at L5/S1. 5. Benign vertebral body hemangioma of L1. No concerning lumbar spine bone lesion. Tim Jones MD Head CT 08/30/170 Signed Impressions: Service Date/Time: August 01:37 - CONCLUSION: Small frontal maddy-falcine subdural blood is unchanged. Tim Jones MD Carotid Artery Ultrasound 08/30/17 0000 Signed Impressions: Service Date/Time: August 07:52 - CONCLUSION: 1. Diffuse calcified plaque throughout carotid arteries bilaterally with resultant moderate, 50-69%%, stenosis of the internal carotid arteries bilaterally and likely moderate stenosis of the left common carotid artery. 2. Antegrade vertebral artery flow bilaterally. Lopez Taylor MD Brain MRI 08/30/17 0000 Signed Impressions: Service Date/Time: August 09:27 - CONCLUSION: 1. Right frontal parafalcine abnormality on CT exam corresponds to a small meningioma. No definitive intra-or extra-axial hemorrhage. Lopez Taylor MD Objective Remarks General - elderly gentleman, awake, weak, ill-appearing CV - regular heart sounds, no murmurs Chest - clear bilateral, good air entry, no wheezes Abdomen - soft, distended and non-tender, BS decreased Extremities -warm and well perfused, 2+ pitting edema, Neuro - awake, alert, moves all extremities Procedures Bone marrow biopsy 08/30/2017. Line: PICC A/P Problem List: (1) Anemia ICD Code: D64.9 - Anemia, unspecified Status: Acute (2) Thrombocytopenia ICD Code: D69.6 - Thrombocytopenia, unspecified Status: Acute (3) GI bleed ICD Code: K92.2 - Gastrointestinal hemorrhage, unspecified Status: Acute (4) Back pain ICD Code: M54.9 - Dorsalgia, unspecified Status: Acute (5) History of MA (myocardial infarction) ICD Code: I25.2 - Old myocardial infarction (6) B-cell lymphoma ICD Code: C85.10 - Unspecified B-cell lymphoma, unspecified site Status: Acute (7) Abnormal head CT ICD Code: R93.0 - Abnormal findings on diagnostic imaging of skull and head, not elsewhere classified (8) Hearing loss ICD Code: H91.90 - Unspecified hearing loss, unspecified ear (9) Leukocytosis ICD Code: D72.829 - Elevated white blood cell count, unspecified Assessment and Plan 1. Septic shock - resolved 2. E coli and strep viridans bacteremia - repeat blood cx are negative to date. Etiology of E coli in blood - No evidence of a UTI based on symptoms. ID consulted for further recommendation. Continue IV aztreonam for now.Echocardiogram shows an EF of 55-60% with moderate concentric left ventricular hypertrophy. No vegetation reported. 3. Tumor lysis syndrome - improving. Allopurinol on hold 4. Hyperkalemia now hypokalemia and hypocalcemia.-replace with 40 mEq of potassium now. And r replace calcium lmonitor closely. 5. LUCA/hypernatremia- creatinine trending down, good urine output. Continue IV fluids although they have been switched to one half normal saline due to hypernatremia. Monitor BMPs every 6 hours. Cautioned to not overcorrect quickly sodium levels. Encourage p.o. hydration. Nephrology following 5. Metabolic acidosis - improved 6. Pancytopenia - worsening, requiring additional transfusion. Transfusion and G-CSF per oncology 7. Burkitt's lymphoma receiving chemo. Management per hematology 8. Meningioma 9. History of CAD 10. History of prostate cancer status post XRT 11. Muñoz's esophagus 12. GI bleed 13. Diarrhea - C diff not yet available Discharge Planning Continue to replace electrolytes. Monitor sodium levels closely. Patient most likely will need transfusion, will defer to hematology Problem Qualifiers (1) Anemia: Qualified Codes: D64.9 - Anemia, unspecified (2) Back pain: Qualified Codes: M54.9 - Dorsalgia, unspecified (3) Hearing loss: Qualified Codes: H91.92 - Unspecified hearing loss, left ear (4) Leukocytosis: Qualified Codes: D72.829 - Elevated white blood cell count, unspecified Jazmin Martin MD September 11, 2017 09:06
[2017-09-11] MEDS: diphenhydrAMINE HCL 25 MG CAP PO PRN ×2 (09:55→09:56)
[2017-09-11] MEDS ORDERED: CALCIUM GLUCONATE INJ 1 GM in DEXTROSE 5% IN WATER 100ML INJ 100 ML IV ONE ×2 (11:00)
[2017-09-11] MEDS ORDERED: VANCOMYCIN INJ 2,250 MG in SODIUM CHLORID 0.9% 500 ML INJ 500 ML IV ONE (12:00)
--- NOTE | 2017-09-11 12:40 | PD.ONC.PN ---
Subjective Subjective Remarks Afebrile Patient denies pain or shortness of breath Reports he feels like the swelling is slowly starting to come down at bedside states they found an oncologist in [place] Objective Data Date Time Temp Pulse Resp B/P (MAP) Pulse Ox O2 Delivery O2 Flow Rate FiO2 09/11/17 11:04 75 09/11/17 11:04 96 Nasal Cannula 1.00 09/11/17 11:03 97.6 75 20 139/70 (93) 96 09/11/17 10:41 97.6 80 20 139/73 96 09/11/17 10:27 98.1 79 20 138/72 96 09/11/17 10:00 98.1 79 20 138/72 96 09/11/17 09:37 97.7 76 20 136/75 96 09/11/17 08:45 95 Nasal Cannula 2.00 09/11/17 07:25 97.7 72 20 135/71 (92) 96 09/11/17 07:25 72 09/11/17 07:24 95 Nasal Cannula 2.00 09/11/17 04:00 95 Nasal Cannula 2.00 09/11/17 03:00 98.0 72 20 153/84 (107) 95 09/11/17 03:00 72 09/10/17 23:00 73 09/10/17 23:00 96 Nasal Cannula 2.00 09/10/17 23:00 97.8 73 20 136/70 (92) 96 09/10/17 22:22 96 Nasal Cannula 2.00 09/10/17 20:00 93 09/10/17 19:00 72 09/10/17 19:00 98.0 77 20 139/78 (98) 97 09/10/17 19:00 95 Nasal Cannula 2.00 09/10/17 15:07 97.5 77 20 138/79 (98) 96 09/10/17 15:07 77 09/10/17 15:06 96 Nasal Cannula 3.00 09/11/17 09/11/17 09/11/17 07:00 15:00 23:00 Intake Total 1880 ml 1147 ml Output Total 2000 ml Balance -120 ml 1147 ml Result Diagram: 09/11/17 0440 09/11/17 0440 Laboratory Results Laboratory Tests Test 09/11/17 04:40 White Blood Count 0.1 TH/MM3 Red Blood Count 2.74 MIL/MM3 Hemoglobin 8.4 GM/DL Hematocrit 23.6 % Mean Corpuscular Volume 86.1 FL Mean Corpuscular Hemoglobin 30.5 PG Mean Corpuscular Hemoglobin Concent 35.4 % Red Cell Distribution Width 14.5 % Platelet Count 5 TH/MM3 Mean Platelet Volume 7.9 FL CBC Comment AUTO DIFF Differential Total Cells Counted 20 Neutrophils % (Manual) 5 % Lymphocytes % 95 % Neutrophils # (Manual) 0.0 TH/MM3 Differential Comment FINAL DIFF MANUAL Platelet Estimate RARE Platelet Morphology Comment NORMAL Red Cell Morphology Comment NORMAL Blood Urea Nitrogen 72 MG/DL Creatinine 1.51 MG/DL Random Glucose 201 MG/DL Total Protein 4.7 GM/DL Albumin 2.2 GM/DL Calcium Level 6.0 MG/DL Phosphorus Level 4.0 MG/DL Magnesium Level 2.3 MG/DL Uric Acid 0.5 MG/DL Alkaline Phosphatase 90 U/L Aspartate Amino Transf (AST/SGOT) 91 U/L Alanine Aminotransferase (ALT/SGPT) 139 U/L Lactate Dehydrogenase 1675 U/L Total Bilirubin 1.4 MG/DL Sodium Level 150 MEQ/L Potassium Level 3.3 MEQ/L Chloride Level 114 MEQ/L Carbon Dioxide Level 27.4 MEQ/L Anion Gap 9 MEQ/L Estimat Glomerular Filtration Rate 46 ML/MIN Protein Corrected Calcium 7.1 MG/DL Random Vancomycin Level 13.1 COMMENT Culture Results Microbiology Date/Time Source Procedure Growth Status 09/08/17 13:20 Blood Peripheral Aerobic Blood Culture - Preliminary NO GROWTH IN 3 DAYS Resulted 09/08/17 13:20 Blood Peripheral Anaerobic Blood Culture - Preliminary NO GROWTH IN 3 DAYS Resulted 09/08/17 13:10 Blood Line Aerobic Blood Culture - Preliminary NO GROWTH IN 3 DAYS Resulted 09/08/17 13:10 Blood Line Anaerobic Blood Culture - Preliminary NO GROWTH IN 3 DAYS Resulted Administered Medications Medications (Trade) Dose Ordered Sig/Robert Route PRN Reason Start Time Stop Time Status Last Admin Dose Admin Sodium Chloride (NS Flush) 2 ml UNSCH PRN IV FLUSH FLUSH AFTER USING IV ACCESS 08/29/17 15:45 09/08/17 23:42 Sodium Chloride (NS Flush) 2 ml BID IV FLUSH 08/29/17 21:00 09/11/17 08:58 Pantoprazole Sodium (Protonix Inj) 40 mg DAILY IV PUSH 08/30/17 09:00 09/11/17 08:58 Ondansetron HCl (Zofran Inj) 4 mg Q6H PRN IV PUSH NAUSEA OR VOMITING 08/29/17 16:00 09/09/17 10:08 Albuterol/ Ipratropium (Duoneb Neb) 1 ampule Q2HR NEB PRN INH WHEEZING 08/29/17 16:00 09/04/17 23:32 Chlorhexidine Gluconate (Chlorhexidine 2% Cloth) Taper DAILY@04 TOP 08/30/17 04:00 08/26/18 03:59 09/11/17 04:00 Senna/Docusate Sodium (Madina-Colace) 1 tab BID PO 08/29/17 21:00 09/10/17 21:39 Albuterol Sulfate (Proair Hfa Inh) 2 puff Q6H PRN INH SHORTNESS OF BREATH 08/29/17 18:00 08/30/17 10:20 Amlodipine Besylate (Norvasc) 10 mg DAILY PO 08/30/17 09:00 Future Hold 09/05/17 10:12 Budesonide/ Formoterol Fumarate (Symbicort 160-4.5 Mcg Inh) 2 puff BID INH 08/29/17 21:00 09/11/17 08:59 Ramipril (Altace) 10 mg DAILY PO 08/30/17 14:00 Future Hold 09/05/17 10:12 Morphine Sulfate (Morphine Inj) 2 mg Q4H PRN IV PUSH Pain 3 to 6 09/01/17 16:00 09/09/17 22:35 Morphine Sulfate (Morphine Inj) 4 mg Q4H PRN IV PUSH Pain 7 to 10 09/01/17 16:00 09/11/17 00:35 Allopurinol (Zyloprim) 300 mg BID PO 09/04/17 21:00 Future Hold 09/04/17 20:56 Sodium Chloride (NS Flush) DAILY IVF 09/05/17 09:00 09/04/17 22:55 Heparin Sodium (Porcine) (Heparin Central Flush) DAILY IV FLUSH 09/05/17 09:00 09/11/17 08:58 Sodium Chloride (NS Flush) UNSCH PRN IVF SEE PROTOCOL 09/04/17 16:00 09/10/17 21:58 Sodium Chloride (NS Flush) UNSCH PRN IVF SEE PROTOCOL 09/04/17 16:00 09/10/17 21:59 Norepinephrine Bitartrate 250 ml @ 7.5 mls/hr TITRATE PRN IV Blood pressure management 09/06/17 10:15 09/08/17 05:40 Calcium Acetate (Phoslo) 1,334 mg TID PO 09/06/17 13:00 09/11/17 08:58 Aztreonam 1000 mg/ Sodium Chloride 100 ml @ 200 mls/hr Q8H IV 09/06/17 12:00 09/11/17 11:57 Nystatin (Mycostatin Liq) 5 ml QID SWISH-SWAL 09/09/17 13:00 09/11/17 08:58 Sodium Chloride 250 ml @ 15 mls/hr ONCE ONCE IV 09/11/17 08:30 09/12/17 01:09 09/11/17 08:59 Sodium Chloride 1,000 ml @ 42 mls/hr [id number] IV 09/11/17 09:00 09/11/17 09:00 Vancomycin HCl 2250 mg/Sodium Chloride 522.5 ml @ 250 mls/hr ONCE ONCE IV 09/11/17 12:00 09/11/17 14:05 09/11/17 12:30 Objective Remarks GENERAL: Older male resting in chair at bedside with family members present. SKIN: Warm and dry. HEAD: Normocephalic. Hard of hearing EYES: No injection or drainage. NECK: Supple, trachea midline. CARDIOVASCULAR: Regular rate and rhythm without murmurs. RESPIRATORY: Clear anteriorly. Few scattered rales in the bases. GASTROINTESTINAL: Abdomen soft, non-tender, nondistended. EXTREMITIES: No cyanosis. 3+ edema to bilateral lower extremities MUSCULOSKELETAL: Generalized weakness. NEUROLOGICAL: No obvious focal deficit. Awake, alert, and oriented x3. 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 ++also has bone pain, back pain, elevated LDH, as well as the sweats that suggests a more systemic manifestation of bone marrow disorder. ++ Nucleated red cells seen on peripheral smear. no acute blasts. 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 09/04: PICC line placement today, start R-EPOCH, give IT MTX. 09/05: Rituxan infusion complete. patient in TLS. transferred to ICU. brush painter consulted. 09/06: start EPOCH, window closing as patient is now leukopenic. give blood and platelets. 09/07: give D2 EPOCH. give 1 unit pRBC, check repeat H/H. 09/08: give D3 EPOCH. 1 unit pRBC, 1 unit platelets. 09/09: D4 EPOCH, 2 units platelets. 08.31: D5--finish 4th bag of EPOCH, give Cytoxan this evening. (2) Pancytopenia ICD Codes: D61.818 - Other pancytopenia (3) Tumor lysis syndrome ICD Codes: E88.3 - Tumor lysis syndrome (4) Sepsis ICD Codes: A41.9 - Sepsis, unspecified organism Assessment 72y/o male with anemia + thrombocytopenia. history of prostate cancer, status post prostatectomy, coronary artery disease, s/p stent placement. 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 Plan 1. Transfuse 2 units platelets today. He has no obvious bleeding. 2. Potassium replaced by attending today. 3. Agree with decreasing rate of IV fluids for now. Appreciate nephrology input. 4. Start G-CSF support this evening with Neupogen. We will give IV due to severe thrombocytopenia. 5. Continue supportive care. Monitor CBC. Monitor for fevers. 6. I have given information to case management; the patient will be following up with oncologist in [place] once he is stable for discharge and travel. Attending Statement The exam, history, and the medical decision-making described in the above note were completed with the assistance of the mid-level provider. I reviewed and agree with the findings presented. I attest that I had a [id number] encounter with the patient on the same day, and personally performed and documented my assessment and findings in the medical record. Pt seen and examined. Still swollen LE but noted good urine output. Renal function improving. Need to replace K orally. 1/2 NS started by nephrology and diuril to control hypernatremia. Noted ID change IB to oral Levoquin which is helpful. GCSF started. Noted still platelet transfusion dependent, advise to decrease to one unit of platelet, check post platelet transfusion count. Concern about developing antibodies. PT contacted with oncologist close to home- Dr. Berkley English [phone]. Plans to fly back with , tickets with [employer] on 09/22- gives patient a goal. Son and daughter in law driving their car back home. Tiara Gonzalez September 11, 2017 12:40 Shahla Duron MD September 11, 2017 20:11
--- NOTE | 2017-09-11 13:38 | MB ---
cc: Estevan Benjamin MD DATE: 09/11/2017 REQUESTING PHYSICIAN: Jazmin Martin MD REASON: E. coli bacteremia. The patient with history of Burkitt lymphoma, on chemotherapy. HISTORY OF PRESENT ILLNESS: This is a 72-year-old white male who was diagnosed with Burkitt lymphoma. The patient just completed chemotherapy on 09/10. He has been receiving antibiotics for E. coli bacteremia, which was cultured on 09/06. One of the blood culture bottles on 09/06 also had viridans strep group. Prior blood cultures on 08/30 revealed Staph hominis in 1 of 4 bottles. Repeated blood cultures from 09/08 had no growth in 3 days. The patient has neutropenia with white count of 0.1 and also platelet count is 5. He is currently sitting up in a chair, and he is awake and alert. He feels weak, but otherwise has no complaints. He denies chills, shortness of breath, nausea, vomiting or aches or pains. A PICC line was placed on 09/05 for chemotherapy. Chest x-ray showed subsegmental basilar airspace disease from 09/05. The patient's and daughter are at bedside. He is interacting with them. PAST MEDICAL HISTORY: Asthma, gastroesophageal reflux disease, hypertension, history of prostate cancer, history of prostatectomy, history of cholecystectomy, history of coronary stent x 2. ALLERGIES: PENICILLIN. THE PATIENT RECALLS ALLERGIC REACTION FROM CHILDHOOD, BUT NO SPECIFIC DETAILS. QUINOLONES, DIPHENHYDRAMINE, HYDROCODONE, MEPERIDINE. MEDICATIONS: Filgrastim, aztreonam, PhosLo, morphine sulfate p.r.n., Madina-Colace, Symbicort, DuoNeb. SOCIAL HISTORY: The patient resides in [place], [place]. No tobacco, rare alcohol use. No illicit drugs. FAMILY HISTORY: Noncontributory. REVIEW OF SYSTEMS: Significant for generalized weakness. Otherwise, negative on a 10-point review. PHYSICAL EXAMINATION: GENERAL: This is a well-developed male who is in no acute distress. He is awake and alert. He is on oxygen via room air. VITAL SIGNS: Temperature 97.6, BP 139/70, respirations 20, heart rate 75. HEENT: Head is atraumatic. Extraocular movements are grossly intact. Pupils reactive to light. No icterus. Oropharynx, mucosa is somewhat dry. No thrush. No visible lesions. NECK: Supple without adenopathy. LUNGS: Clear. Diminished breath sounds, bilateral. HEART: Regular S1 and S2. No murmurs, rubs or gallop. ABDOMEN: Obese, soft, diminished bowel sounds. Nontender. RECTAL: Not performed. EXTREMITIES: Diffuse 3+ edema involving both upper and lower extremities. SKIN: No diffuse rash. NEUROLOGIC: No gross focal finding. PSYCHIATRIC: The patient is pleasant, calm, and cooperative. LABORATORY DATA: WBC 0.1, platelets 5, hemoglobin 8.4. Creatinine 1.51, estimated GFR 46, sodium 150, AST 91, ALT 139, LDH 1675. Urinalysis on 09/06 was unremarkable. IMPRESSION: 1. Bacteremia due to Escherichia coli. 2. Neutropenia and thrombocytopenia in patient with Burkitt lymphoma. Status post chemotherapy. 3. One positive blood culture with Streptococcus viridans, on 09/06. The patient is due to be transferred back to [place], so he can continue treatment for the lymphoma. He appears clinically stable currently. RECOMMENDATIONS: The patient can be transitioned to oral Levaquin and continue treatment for the bacteremia. He needs to be observed closely for elevation in temperature and will need to be given broad spectrum antibiotics if he has new recurrence of fever. I think the Strep viridans from the blood culture is likely contamination, and patient has had negative blood cultures on repeat cultures. Clinically, he looks stable. I think he can safely be transferred to [place] from an infectious disease standpoint. Thank you for this consultation. Further recommendations can be given if requested. If the patient remains in hospital here, I can follow his progress. MD VLAD Estevez/MELANIA , 01:03 PM , 01:37 PM
--- NOTE | 2017-09-11 14:58 | HHI.NPPN ---
Subjective General Problems: Edema, Hypotension Renal Failure: Acute History of Present Illness Patient is a 72 year old male with a past medical history of prostate cancer, asthma, gastroesophageal reflux, Muñoz's esophagus,hypertension, new anemia, new thrombocytopenia, rotator cuff injury, and back pain. 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 Patient was receiving Rituxan last night and developed a reaction with low grade temperature, pain, and tremor. Plan to transfer patient to intensive care unit as patient is at risk for fluid overload with blood transfusions and acute kidney injury. Nephrology is consulted for acute kidney injury with creatinine of 2.44 with a admission creatinine of 0.99. HGB is low at 7.2, Plt of 27, NA 148, CO2 14.5. Patient is resting comfortably now with his only complaint is that is dizzy with ambulation. Additional Remarks Resting comfortably. Alert and oriented. 1/2 NS infusing patient with hypernatremia at 150. (Janet Ribeiro) Review of Systems Respiratory Respiratory Remarks Denies any SOB (Janet Ribeiro) Cardiovascular Cardiac: Edema Cardiac Remarks Denies any CP (Janet Ribeiro) Gastrointestinal GI Remarks Denies any abdominal pain (Janet Ribeiro) Objective Data Data 09/11/17 09/12/17 19:00 07:00 Intake Total 1669.5 ml Balance 1669.5 ml IV Total 1203.5 ml Platelets 426 ml Blood Product IV Normal Saline Flush 40 ml Vital Signs Date Time Temp Pulse Resp B/P (MAP) Pulse Ox O2 Delivery O2 Flow Rate FiO2 09/11/17 11:04 75 09/11/17 11:04 96 Nasal Cannula 1.00 09/11/17 11:03 97.6 75 20 139/70 (93) 96 09/11/17 10:41 97.6 80 20 139/73 96 09/11/17 10:27 98.1 79 20 138/72 96 09/11/17 10:00 98.1 79 20 138/72 96 09/11/17 09:37 97.7 76 20 136/75 96 09/11/17 08:45 95 Nasal Cannula 2.00 09/11/17 07:25 97.7 72 20 135/71 (92) 96 09/11/17 07:25 72 09/11/17 07:24 95 Nasal Cannula 2.00 09/11/17 04:00 95 Nasal Cannula 2.00 09/11/17 03:00 98.0 72 20 153/84 (107) 95 09/11/17 03:00 72 09/10/17 23:00 73 09/10/17 23:00 96 Nasal Cannula 2.00 09/10/17 23:00 97.8 73 20 136/70 (92) 96 09/10/17 22:22 96 Nasal Cannula 2.00 09/10/17 20:00 93 09/10/17 19:00 72 09/10/17 19:00 98.0 77 20 139/78 (98) 97 09/10/17 19:00 95 Nasal Cannula 2.00 09/10/17 15:07 97.5 77 20 138/79 (98) 96 09/10/17 15:07 77 09/10/17 15:06 96 Nasal Cannula 3.00 (Janet Ribeiro) -: 09/11/17 0440 09/11/17 0440 Imaging Last Impressions Chest X-Ray 09/05/17 0000 Signed Impressions: Service Date/Time: Tuesday, September 05, 2017 01:50 - CONCLUSION: 1. Right PICC line in superior vena cava. Subsegmental basilar airspace disease. No effusion or pneumothorax. Cory Camarena MD PICC Line Insertion 09/04/17 0600 Signed Impressions: Service Date/Time: Monday, September 04, 2017 15:12 - CONCLUSION: 1. Uncomplicated central venous Power PICC line placement. 2. The PICC line can be used immediately. Santy Burciaga Jr., MD Lumbar Puncture Fluoroscopy 09/04/17 0000 Signed Impressions: Service Date/Time: Monday, September 04, 2017 15:12 - CONCLUSION: Uncomplicated fluoroscopically guided lumbar puncture with pressures as above. Intrathecal methotrexate was administered. Santy Burciaga Jr., MD Chest CT 09/01/17 0000 Signed Impressions: Service Date/Time: Friday, September 01, 2017 16:48 - CONCLUSION: 1. No definite evidence for metastatic disease to the thorax. 2. 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 3. Scattered atelectasis and scarring in the lungs. 4. Moderate coronary calcifications. Cory Camarena MD Abdomen/Pelvis CT 09/01/17 0000 Signed Impressions: Service Date/Time: Friday, September 01, 2017 16:48 - CONCLUSION: 1. Post surgical changes with findings of cholecystectomy and prostatectomy. 2. Scattered diverticular disease of the colon without diverticulitis. 3. Lobulated cyst in the upper poles of both kidneys with some calcification on the left. 4. Retroperitoneal fat herniates through the left hemidiaphragm into the posterior left lung base. 5. No acute intraperitoneal or pelvic process to explain current clinical symptoms Gavin Lynn MD Bone Biopsy CT 08/30/17 1535 Signed Impressions: Service Date/Time: August 16:19 - CONCLUSION: 1. Uncomplicated CT guided bone marrow aspirate. 2. Uncomplicated CT guided bone marrow biopsy. Srikanth Ambrosio MD Thoracic Spine CT 08/30/170 Signed Impressions: Service Date/Time: August 01:37 - CONCLUSION: 1. No fracture, subluxation or other acute abnormality of the thoracic spine. 2. Scoliosis and mild multifocal degenerative changes as above. 3. Complex appearing cystic structures of the upper poles of both kidneys. Comparison to any previous outside facility studies is recommended to confirm chronicity and stability. Contrast enhanced study of the abdomen suggested if felt clinically indicated, preferably MRI if there are no contraindications. Tim Jones MD Lumbar Spine CT 08/30/1799 Signed Impressions: Service Date/Time: August 01:37 - CONCLUSION: 1. No acute fracture or acute subluxation of the lumbar spine. 2. 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 3. Mild spinal and bilateral foraminal stenosis at L4/L5. 4. Mild right and moderate left foraminal stenosis at L5/S1. 5. Benign vertebral body hemangioma of L1. No concerning lumbar spine bone lesion. Tim Jones MD Head CT 08/30/17 0100 Signed Impressions: Service Date/Time: August 01:37 - CONCLUSION: Small frontal maddy-falcine subdural blood is unchanged. Tim Jones MD Carotid Artery Ultrasound 08/30/17 0000 Signed Impressions: Service Date/Time: August 07:52 - CONCLUSION: 1. Diffuse calcified plaque throughout carotid arteries bilaterally with resultant moderate, 50-69%%, stenosis of the internal carotid arteries bilaterally and likely moderate stenosis of the left common carotid artery. 2. Antegrade vertebral artery flow bilaterally. Lopez Taylor MD Brain MRI 08/30/17 0000 Signed Impressions: Service Date/Time: August 09:27 - CONCLUSION: 1. Right frontal parafalcine abnormality on CT exam corresponds to a small meningioma. No definitive intra-or extra-axial hemorrhage. Lopez Taylor MD (Janet Ribeiro) Physical Exam General Appearance: No Acute Distress, Comfortable (Janet Ribeiro) Throat Throat Exam: Oral Mucosa [place] & Moist (Janet Ribeiro) Pulmonary Resp Exam: Breath Sounds Equal, No Distress Resp Remarks O2 NC 5 liters (Janet Ribeiro) Cardiology CV Exam: Regular, Normal Sinus Rhythm (Janet Ribeiro) Gastrointestinal/Abdomen GI Exam: Soft, Non-Tender, Distended (Janet Ribeiro) Genitourinary Exam: Flank Non-Tender (Janet Ribeiro) Integumentary Skin Exam: Clear, Warm (Janet Ribeiro) Extremeties Extremities Exam: Moderate Edema, Dependent Edema (Janet Ribeiro) Neurologic Neuro Exam: Alert, Awake, Oriented (Janet Ribeiro) Psychiatric Psych Exam: Appropriate Responses (Janet Ribeiro) Assessment/Plan Electrolyte Assessment: Hypernatremia, Hypocalcemia, Hypokalemia Problem List: (1) Acute kidney injury ICD Codes: N17.9 - Acute kidney failure, unspecified Plan: Acute kidney injury with creatinine of 2.44 when consulted. Acute kidney injury most likely related to tumor lysis. On admission creatinine of 0.99. CT of abdomen on the with kidney with normal in size and shape. There is no mass, stone or hydronephrosis. Lobulated cysts in the upper poles of both kidneys with some benign-appearing calcification on the left Creatinine continues to improve with creatinine of 1.51 Plan Will monitor renal panel and urinary output Avoid nephrotoxins. Hypernatremia IVF changed to 1/2 NS Will add diuril for hypernatremia and swelling Continue phoslo Hypocalcemia - continues with calcium gluconate given today Hypokalemia - potassium replaced given. (2) B-cell lymphoma ICD Codes: C85.10 - Unspecified B-cell lymphoma, unspecified site Status: Acute Plan: Oncology managing (3) Anemia ICD Codes: D64.9 - Anemia, unspecified Status: Acute Plan: Monitoring (Janet Ribeiro) Problem List: (1) Acute kidney injury ICD Codes: N17.9 - Acute kidney failure, unspecified Plan: Acute kidney injury with creatinine of 2.44 when consulted. Acute kidney injury most likely related to tumor lysis. On admission creatinine of 0.99. CT of abdomen on the with kidney with normal in size and shape. There is no mass, stone or hydronephrosis. Lobulated cysts in the upper poles of both kidneys with some benign-appearing calcification on the left Creatinine continues to improve with creatinine of 1.51 Plan Will monitor renal panel and urinary output Avoid nephrotoxins. Hypernatremia IVF changed to 1/2 NS Will add diuril for hypernatremia and swelling Continue phoslo Hypocalcemia - continues with calcium gluconate given today Hypokalemia - potassium replaced given. Patient seen and examined, agree with above. Po4 is normal now, will D/C Phoslo. Still has low WBC and Platelets. Creatinine is improving. (2) B-cell lymphoma ICD Codes: C85.10 - Unspecified B-cell lymphoma, unspecified site Status: Acute Plan: Oncology managing (3) Anemia ICD Codes: D64.9 - Anemia, unspecified Status: Acute Plan: Monitoring (Demi Mendez MD) Problem Qualifiers (1) Anemia: Qualified Codes: D64.9 - Anemia, unspecified Janet Ribeiro September 11, 2017 14:58 Demi Mendez MD September 11, 2017 16:49
[2017-09-11] MEDS ORDERED: DEXTROSE 5% IN WATE 1000ML INJ 1,000 ML IV SCH (16:00)
[2017-09-11] MEDS: SODIUM CHLOR 0.45% 1000 ML INJ 1,000 ML IV SCH (16:30)
--- NOTE | 2017-09-11 16:31 | ECHRPT ---
Indication: Acute and subacute endocarditis, unspecified CONCLUSIONS Normal left ventricular size and wall thickness. The left ventricular systolic function is normal wi th an estimated ejection fraction in the range of 60-65%. Normal wall motion. Structurally normal mitral valve. Trace mitral valve regurgitation. There is mild tricuspid valve regurgitation. There is estimated systolic pulmonary pressure is 35 mm Hg. BP: / HR: Rhythm: MEASUREMENTS (Male / Female) Normal Values Technical Quality:Technically difficult study M-MODE Aortic Root Diameter MM 3.9 cm LA Systolic Diameter MM 4.2 cm LA Ao Ratio MM 1.1 AV Cusp Separation MM 1.9 cm DOPPLER Mitral E Point Velocity 129.0 cm/s Mitral A Point Velocity 118.0 cm/s Mitral E to A Ratio 1.1 TR Peak Velocity 260.0 cm/s TR Peak Gradient 27.0 mmHg Right Atrial Pressure 10.0 mmHg Pulmonary Artery Systolic Pressu 37.0 mmHg Right Ventricular Systolic Press 37.0 mmHg FINDINGS LEFT VENTRICLE Normal left ventricular size and wall thickness. The left ventricular systolic function is normal wi th an estimated ejection fraction in the range of 60-65%. Normal wall motion. RIGHT VENTRICLE The right ventricular size is normal. LEFT ATRIUM The left atrial size is normal. RIGHT ATRIUM The right atrial size is normal. ATRIAL SEPTUM The interatrial septum not well visualized. AORTA The aortic root and proximal ascending aorta are not well visualized. MITRAL VALVE Structurally normal mitral valve. Trace mitral valve regurgitation. AORTIC VALVE Trileaflet aortic valve. No aortic valve stenosis or regurgitation. TRICUSPID VALVE There is mild tricuspid valve regurgitation. There is estimated systolic pulmonary pressure is 35 mm Hg. PULMONARY VALVE No pulmonary valve regurgitation or stenosis. VESSELS The inferior vena cava is normal in size. PERICARDIUM There is no pericardial effusion. Manjit Sullivan MD (Electronically Signed) Final Date:11 Sep 2017 16:31
[2017-09-11] MEDS ORDERED: CHLOROTHIAZIDE 250 MG TAB PO SCH (18:00)
[2017-09-11 18:03] LABS: BICARBONATE 28.7 MEQ/L (21.0-32.0); CALCIUM 6.3 MG/DL (8.5-10.1); CREATININE 1.28 MG/DL (0.60-1.30)
[2017-09-11 18:29] LABS: CALCIUM-PROTEIN CORRECTED 7.6 MG/DL (8.5-10.1); TOTAL PROTEIN 4.5 GM/DL (6.4-8.2)
[2017-09-11] MEDS: FILGRASTIM INJ 480 MCG in DEXTROSE 5% IN WATER INJ 50 ML IV SCH ×2 (20:47)
[2017-09-11] MEDS: CHLOROTHIAZIDE 250 MG TAB PO SCH (20:48)
[2017-09-11] MEDS: POTASSIUM CHLORIDE 10 MEQ CONTROLLED RELEASE TAB PO SCH (20:49)
[2017-09-12] VITALS (12 sets, daily range): BP systolic 140–163; BP diastolic 64–83; PULSE 75–92; RESP 19–24; TEMP 97.6–98.5; O2SAT 93–98
[2017-09-12] MEDS: CHLORHEXIDINE GLUCONATE 2 % 1 PACK (2 CLOTHS) TOP SCH (04:00)
[2017-09-12] MEDS: AZTREONAM INJ 1,000 MG in SODIUM CHLORIDE 0.9% INJ 100 ML IV SCH ×2 (04:00→12:11)
[2017-09-12 05:25] LABS: HEMOGLOBIN 7.5 GM/DL (13.0-17.0); MEAN CELL VOLUME 85.8 FL (80.0-100.0); MEAN CORPUSCULAR HEMOGLOBIN 30.7 PG (27.0-34.0); MEAN CORPUSCULAR HGB CONC 35.8 % (32.0-36.0); MEAN PLATELET VOLUME 6.8 FL (7.0-11.0); RED BLOOD COUNT 2.44 MIL/MM3 (4.50-5.90); WHITE BLOOD COUNT 0.1 TH/MM3 (4.0-11.0)
[2017-09-12 05:30] LABS: HEMATOCRIT 20.9 % (39.0-51.0); PLATELET COUNT 15 TH/MM3 (150-450)
[2017-09-12 05:31] LABS: ALBUMIN 2.2 GM/DL (3.4-5.0); BICARBONATE 28.3 MEQ/L (21.0-32.0); CALCIUM 6.3 MG/DL (8.5-10.1); CALCIUM-PROTEIN CORRECTED 7.5 MG/DL (8.5-10.1); CREATININE 1.37 MG/DL (0.60-1.30); MAGNESIUM 2.1 MG/DL (1.5-2.5); TOTAL BILIRUBIN ADULT 1.2 MG/DL (0.2-1.0); TOTAL PROTEIN 4.7 GM/DL (6.4-8.2)
[2017-09-12] MEDS ORDERED: SODIUM CHLOR 0.9% 250 ML INJ 250 ML IV ONE (06:00)
[2017-09-12] MEDS ORDERED: ACETAMINOPHEN 325 MG TAB PO PRN (06:00)
[2017-09-12 07:03] LABS: LYMPHOCYTES 100 % (9-44)
[2017-09-12] MEDS: PANTOPRAZOLE SODIUM 40 MG VIAL IV PUSH SCH (09:20)
[2017-09-12] MEDS: MORPHINE SULFATE 2 MG/ML SYRINGE IV PUSH PRN (09:21)
[2017-09-12] MEDS: DOCUSATE SODIUM 50 MG/SENNA 8.6 MG TAB PO SCH ×2 (09:21→20:50)
[2017-09-12] MEDS: CHLOROTHIAZIDE 250 MG TAB PO SCH ×2 (09:21→18:45)
[2017-09-12] MEDS: POTASSIUM CHLORIDE 10 MEQ CONTROLLED RELEASE TAB PO SCH ×2 (09:21→20:50)
[2017-09-12] MEDS: NYSTATIN SUSP 500,000 U/5 ML CUP SWISH-SWAL SCH ×4 (09:21→20:51)
[2017-09-12] MEDS: SODIUM CHLORIDE 0.9% FLUSH 10 ML FLUSH IV FLUSH SCH ×2 (09:22→20:57)
[2017-09-12] MEDS: SODIUM CHLORIDE 0.9% FLUSH 10 ML FLUSH IVF SCH (09:23)
[2017-09-12] MEDS: BUDESONIDE-FORMOTEROL 160/4.5 MCG INHALER INH SCH ×2 (09:24→20:52)
--- NOTE | 2017-09-12 09:29 | HHI.PR ---
Objective Vitals Vital Signs Date Time Temp Pulse Resp B/P (MAP) Pulse Ox O2 Delivery O2 Flow Rate FiO2 09/12/17 07:00 75 09/12/17 07:00 95 Nasal Cannula 2.00 09/12/17 07:00 97.6 75 20 152/64 (93) 95 09/12/17 04:00 98.4 80 22 140/69 (92) 93 09/12/17 04:00 93 Nasal Cannula 2.00 09/12/17 04:00 80 09/12/17 00:00 98.2 77 20 141/68 (92) 94 09/12/17 00:00 94 Nasal Cannula 2.00 09/12/17 00:00 77 09/11/17 20:00 80 09/11/17 20:00 93 Nasal Cannula 2.00 09/11/17 20:00 98.1 80 20 157/71 (99) 93 09/11/17 19:05 96 Nasal Cannula 2.00 09/11/17 15:05 70 09/11/17 15:04 92 Room Air 09/11/17 15:04 98.1 70 20 149/75 (99) 92 09/11/17 11:04 75 09/11/17 11:04 96 Nasal Cannula 1.00 09/11/17 11:03 97.6 75 20 139/70 (93) 96 09/11/17 10:41 97.6 80 20 139/73 96 09/11/17 10:27 98.1 79 20 138/72 96 09/11/17 10:00 98.1 79 20 138/72 96 09/11/17 09:37 97.7 76 20 136/75 96 I/O 09/11/17 09/11/17 09/11/17 09/12/17 09/12/17 09/12/17 07:00 15:00 23:00 07:00 15:00 23:00 Intake Total 1880 ml 1669.5 ml 1077.6 ml 1546 ml Output Total 2000 ml 2230 ml 400 ml Balance -120 ml 1669.5 ml -1152.4 ml 1146 ml Intake Oral 780 ml 600 ml 960 ml IV Total 1100 ml 1203.5 ml 477.6 ml 586 ml Platelets 426 ml Blood Product IV Normal Saline Flush 40 ml Output Urine Total 2000 ml 2230 ml 400 ml # Voids 6 # Bowel Movements 0 0 0 Result Diagram: 09/12/1742409/12/17424 Objective Remarks General - elderly gentleman, awake, weak, ill-appearing CV - regular heart sounds, no murmurs Chest - clear bilateral, good air entry, no wheezes Abdomen - soft, distended and non-tender, BS decreased Extremities -warm and well perfused, 2+ pitting edema, Neuro - awake, alert, moves all extremities Procedures Bone marrow biopsy 08/30/2017. Line: PICC A/P Problem List: (1) Anemia ICD Code: D64.9 - Anemia, unspecified Status: Acute (2) Thrombocytopenia ICD Code: D69.6 - Thrombocytopenia, unspecified Status: Acute (3) GI bleed ICD Code: K92.2 - Gastrointestinal hemorrhage, unspecified Status: Acute (4) Back pain ICD Code: M54.9 - Dorsalgia, unspecified Status: Acute (5) History of CO (myocardial infarction) ICD Code: I25.2 - Old myocardial infarction (6) B-cell lymphoma ICD Code: C85.10 - Unspecified B-cell lymphoma, unspecified site Status: Acute (7) Abnormal head CT ICD Code: R93.0 - Abnormal findings on diagnostic imaging of skull and head, not elsewhere classified (8) Hearing loss ICD Code: H91.90 - Unspecified hearing loss, unspecified ear (9) Leukocytosis ICD Code: D72.829 - Elevated white blood cell count, unspecified Assessment and Plan 1. Septic shock - resolved 2. E coli and strep viridans bacteremia - repeat blood cx are negative to date. Etiology of E coli in blood - No evidence of a UTI based on symptoms. ID consulted for further recommendation. Continue IV aztreonam for now.Echocardiogram shows an EF of 55-60% with moderate concentric left ventricular hypertrophy. No vegetation reported. 3. Tumor lysis syndrome - improving. Allopurinol on hold 4. Hyperkalemia now hypokalemia and hypocalcemia.-replace with 40 mEq of potassium now. And r replace calcium lmonitor closely. 5. LUCA/hypernatremia- creatinine trending down, good urine output. Continue IV fluids although they have been switched to one half normal saline due to hypernatremia. Monitor BMPs every 6 hours. Cautioned to not overcorrect quickly sodium levels. Encourage p.o. hydration. Nephrology following 5. Metabolic acidosis - improved 6. Pancytopenia - worsening, requiring additional transfusion. Transfusion and G-CSF per oncology 7. Burkitt's lymphoma receiving chemo. Management per hematology 8. Meningioma 9. History of CAD 10. History of prostate cancer status post XRT 11. Muñoz's esophagus 12. GI bleed 13. Diarrhea - C diff not yet available Discharge Planning Continue to replace electrolytes. Monitor sodium levels closely. Patient most likely will need transfusion, will defer to hematology Problem Qualifiers (1) Anemia: Qualified Codes: D64.9 - Anemia, unspecified (2) Back pain: Qualified Codes: M54.9 - Dorsalgia, unspecified (3) Hearing loss: Qualified Codes: H91.92 - Unspecified hearing loss, left ear (4) Leukocytosis: Qualified Codes: D72.829 - Elevated white blood cell count, unspecified Jazmin Martin MD September 12, 2017 09:29
[2017-09-12] MEDS ORDERED: LIDOCAINE 2% JELLY 5 ML TUBE TOPICAL ONE (09:30)
[2017-09-12] MEDS: SODIUM CHLOR 0.45% 1000 ML INJ 1,000 ML IV SCH ×2 (10:19→23:01)
[2017-09-12] MEDS: ZINC OXIDE 40% OINT 60 GM TUBE TOPICAL PRN (10:26)
[2017-09-12] MEDS: NYSTATIN 100,000 U/GM PWD 15 GM BTL TOPICAL SCH ×3 (10:26→20:57)
--- NOTE | 2017-09-12 10:34 | HHI.NPPN ---
Subjective General Problems: Edema, Hypotension Renal Failure: Acute History of Present Illness Patient is a 72 year old male with a past medical history of prostate cancer, asthma, gastroesophageal reflux, Muñoz's esophagus,hypertension, new anemia, new thrombocytopenia, rotator cuff injury, and back pain. 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 Patient was receiving Rituxan last night and developed a reaction with low grade temperature, pain, and tremor. Plan to transfer patient to intensive care unit as patient is at risk for fluid overload with blood transfusions and acute kidney injury. Nephrology is consulted for acute kidney injury with creatinine of 2.44 with a admission creatinine of 0.99. HGB is low at 7.2, Plt of 27, NA 148, CO2 14.5. Patient is resting comfortably now with his only complaint is that is dizzy with ambulation. Additional Remarks Alert and oriented. Creatinine continues to improve. Hypernatremic with 1/2 NS infusing. Edema is noted. (Janet Ribeiro) Review of Systems Respiratory Respiratory Remarks Denies any SOB (Janet Ribeiro) Cardiovascular Cardiac: Edema Cardiac Remarks Denies any CP (Janet Ribeiro) Gastrointestinal GI Remarks Denies any abdominal pain (Janet Ribeiro) Objective Data Data Vital Signs Date Time Temp Pulse Resp B/P (MAP) Pulse Ox O2 Delivery O2 Flow Rate FiO2 09/12/17 07:00 75 09/12/17 07:00 95 Nasal Cannula 2.00 09/12/17 07:00 97.6 75 20 152/64 (93) 95 09/12/17 04:00 98.4 80 22 140/69 (92) 93 09/12/17 04:00 93 Nasal Cannula 2.00 09/12/17 04:00 80 09/12/17 00:00 98.2 77 20 141/68 (92) 94 09/12/17 00:00 94 Nasal Cannula 2.00 09/12/17 00:00 77 09/11/17 20:00 80 09/11/17 20:00 93 Nasal Cannula 2.00 09/11/17 20:00 98.1 80 20 157/71 (99) 93 09/11/17 19:05 96 Nasal Cannula 2.00 5/1/18 15:05 70 09/11/17 15:04 92 Room Air 09/11/17 15:04 98.1 70 20 149/75 (99) 92 09/11/17 11:04 75 09/11/17 11:04 96 Nasal Cannula 1.00 09/11/17 11:03 97.6 75 20 139/70 (93) 96 09/11/17 10:41 97.6 80 20 139/73 96 (Janet Ribeiro) -: 09/12/17 0425 09/12/17 0425 Imaging Last Impressions Chest X-Ray 09/05/17 0000 Signed Impressions: Service Date/Time: Tuesday, September 05, 2017 01:50 - CONCLUSION: 1. Right PICC line in superior vena cava. Subsegmental basilar airspace disease. No effusion or pneumothorax. Cory Camarena MD PICC Line Insertion 09/04/17 0600 Signed Impressions: Service Date/Time: Monday, September 04, 2017 15:12 - CONCLUSION: 1. Uncomplicated central venous Power PICC line placement. 2. The PICC line can be used immediately. Santy Burciaga Jr., MD Lumbar Puncture Fluoroscopy 09/04/17 0000 Signed Impressions: Service Date/Time: Monday, September 04, 2017 15:12 - CONCLUSION: Uncomplicated fluoroscopically guided lumbar puncture with pressures as above. Intrathecal methotrexate was administered. Santy Burciaga Jr., MD Chest CT 09/01/17 0000 Signed Impressions: Service Date/Time: Friday, September 01, 2017 16:48 - CONCLUSION: 1. No definite evidence for metastatic disease to the thorax. 2. 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 3. Scattered atelectasis and scarring in the lungs. 4. Moderate coronary calcifications. Cory Camarena MD Abdomen/Pelvis CT 09/01/17 0000 Signed Impressions: Service Date/Time: Friday, September 01, 2017 16:48 - CONCLUSION: 1. Post surgical changes with findings of cholecystectomy and prostatectomy. 2. Scattered diverticular disease of the colon without diverticulitis. 3. Lobulated cyst in the upper poles of both kidneys with some calcification on the left. 4. Retroperitoneal fat herniates through the left hemidiaphragm into the posterior left lung base. 5. No acute intraperitoneal or pelvic process to explain current clinical symptoms Gavin Lynn MD Bone Biopsy CT 08/30/17 1535 Signed Impressions: Service Date/Time: August 16:19 - CONCLUSION: 1. Uncomplicated CT guided bone marrow aspirate. 2. Uncomplicated CT guided bone marrow biopsy. Srikanth Ambrosio MD Thoracic Spine CT 08/30/17 0100 Signed Impressions: Service Date/Time: August 01:37 - CONCLUSION: 1. No fracture, subluxation or other acute abnormality of the thoracic spine. 2. Scoliosis and mild multifocal degenerative changes as above. 3. Complex appearing cystic structures of the upper poles of both kidneys. Comparison to any previous outside facility studies is recommended to confirm chronicity and stability. Contrast enhanced study of the abdomen suggested if felt clinically indicated, preferably MRI if there are no contraindications. Tim Jones MD Lumbar Spine CT 08/30/17 0100 Signed Impressions: Service Date/Time: August 01:37 - CONCLUSION: 1. No acute fracture or acute subluxation of the lumbar spine. 2. 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 3. Mild spinal and bilateral foraminal stenosis at L4/L5. 4. Mild right and moderate left foraminal stenosis at L5/S1. 5. Benign vertebral body hemangioma of L1. No concerning lumbar spine bone lesion. Tim Jones MD Head CT 08/30/17 0100 Signed Impressions: Service Date/Time: August 01:37 - CONCLUSION: Small frontal maddy-falcine subdural blood is unchanged. Tim Jones MD Carotid Artery Ultrasound 08/30/17 0000 Signed Impressions: Service Date/Time: August 07:52 - CONCLUSION: 1. Diffuse calcified plaque throughout carotid arteries bilaterally with resultant moderate, 50-69%%, stenosis of the internal carotid arteries bilaterally and likely moderate stenosis of the left common carotid artery. 2. Antegrade vertebral artery flow bilaterally. Lopez Taylor MD Brain MRI 08/30/17 0000 Signed Impressions: Service Date/Time: August 09:27 - CONCLUSION: 1. Right frontal parafalcine abnormality on CT exam corresponds to a small meningioma. No definitive intra-or extra-axial hemorrhage. Lopez Taylor MD (Janet Ribeiro) Physical Exam General Appearance: No Acute Distress, Comfortable (Janet Ribeiro) Throat Throat Exam: Oral Mucosa [place] & Moist (Janet Ribeiro [employer]) Pulmonary Resp Exam: Breath Sounds Equal, No Distress Resp Remarks O2 NC 2 liters (Janet RibeiroP) Cardiology CV Exam: Regular, Normal Sinus Rhythm (Janet Ribeiro [employer]) Gastrointestinal/Abdomen GI Exam: Soft, Non-Tender, Distended (Janet Ribeiro) Genitourinary Exam: Flank Non-Tender (Janet Ribeiro) Integumentary Skin Exam: Clear, Warm (Janet Ribeiro) Extremeties Extremities Exam: Moderate Edema, Dependent Edema (Janet Ribeiro) Neurologic Neuro Exam: Alert, Awake, Oriented (Janet Ribeiro) Psychiatric Psych Exam: Appropriate Responses (Janet Ribeiro) Assessment/Plan Electrolyte Assessment: Hypernatremia, Hypocalcemia, Hypokalemia Problem List: (1) Acute kidney injury ICD Codes: N17.9 - Acute kidney failure, unspecified Plan: Acute kidney injury with creatinine of 2.44 when consulted. Acute kidney injury most likely related to tumor lysis. On admission creatinine of 0.99. CT of abdomen on the with kidney with normal in size and shape. There is no mass, stone or hydronephrosis. Lobulated cysts in the upper poles of both kidneys with some benign-appearing calcification on the left Creatinine continues to improve with creatinine of 1.37 Plan Will monitor renal panel and urinary output Avoid nephrotoxins. Continue 1/2 NS for hypernatremia Continue diuril for hypernatremia and swelling Hypocalcemia will order calcium gluconate Hypokalemia will order potassium replacement (2) B-cell lymphoma ICD Codes: C85.10 - Unspecified B-cell lymphoma, unspecified site Status: Acute Plan: Oncology managing (3) Anemia ICD Codes: D64.9 - Anemia, unspecified Status: Acute Plan: Monitoring (Janet Ribeiro) Problem List: (1) Acute kidney injury ICD Codes: N17.9 - Acute kidney failure, unspecified Plan: Acute kidney injury with creatinine of 2.44 when consulted. Acute kidney injury most likely related to tumor lysis. On admission creatinine of 0.99. CT of abdomen on the with kidney with normal in size and shape. There is no mass, stone or hydronephrosis. Lobulated cysts in the upper poles of both kidneys with some benign-appearing calcification on the left Creatinine continues to improve with creatinine of 1.37 Plan Will monitor renal panel and urinary output Avoid nephrotoxins. Continue 1/2 NS for hypernatremia Continue diuril for hypernatremia and swelling Hypocalcemia will order calcium gluconate Hypokalemia will order potassium replacement. Patient seen and examined, agree with above. K was low, replaced, continue IVF. (2) B-cell lymphoma ICD Codes: C85.10 - Unspecified B-cell lymphoma, unspecified site Status: Acute Plan: Oncology managing (3) Anemia ICD Codes: D64.9 - Anemia, unspecified Status: Acute Plan: Monitoring (Demi Mendez MD) Problem Qualifiers (1) Anemia: Qualified Codes: D64.9 - Anemia, unspecified Janet Ribeiro September 12, 2017 10:34 Demi Mendez MD September 12, 2017 18:30
--- NOTE | 2017-09-12 10:42 | HHI.PR ---
Subjective Remarks Patient requesting Jensen catheter because he is having excruciating pain on his scrotal area whenever he urinates. Patient tells me he has difficulty urinating in a urinal secondary to the swelling in his scrotal area, and urinates "all over the place ". He denies any chest pains or shortness of breath, nausea or vomiting. Discussed with RN, he has been trying to keep the scrotal area dry as much as possible. Objective Vitals Vital Signs Date Time Temp Pulse Resp B/P (MAP) Pulse Ox O2 Delivery O2 Flow Rate FiO2 09/12/17 07:00 75 09/12/17 07:00 95 Nasal Cannula 2.00 09/12/17 07:00 97.6 75 20 152/64 (93) 95 09/12/17 04:00 98.4 80 22 140/69 (92) 93 09/12/17 04:00 93 Nasal Cannula 2.00 09/12/17 04:00 80 09/12/17 00:00 98.2 77 20 141/68 (92) 94 09/12/17 00:00 94 Nasal Cannula 2.00 09/12/17 00:00 77 09/11/17 20:00 80 09/11/17 20:00 93 Nasal Cannula 2.00 09/11/17 20:00 98.1 80 20 157/71 (99) 93 09/11/17 19:05 96 Nasal Cannula 2.00 09/11/17 15:05 70 09/11/17 15:04 92 Room Air 09/11/17 15:04 98.1 70 20 149/75 (99) 92 09/11/17 11:04 75 09/11/17 11:04 96 Nasal Cannula 1.00 09/11/17 11:03 97.6 75 20 139/70 (93) 96 09/11/17 10:41 97.6 80 20 139/73 96 I/O 09/11/17 09/11/17 09/11/17 09/12/17 09/12/17 09/12/17 07:00 15:00 23:00 07:00 15:00 23:00 Intake Total 1880 ml 1669.5 ml 1077.6 ml 1546 ml Output Total 2000 ml 2230 ml 400 ml Balance -120 ml 1669.5 ml -1152.4 ml 1146 ml Intake Oral 780 ml 600 ml 960 ml IV Total 1100 ml 1203.5 ml 477.6 ml 586 ml Platelets 426 ml Blood Product IV Normal Saline Flush 40 ml Output Urine Total 2000 ml 2230 ml 400 ml # Voids 6 # Bowel Movements 0 0 0 Result Diagram: 09/12/175 09/12/17 0425 Imaging Last Impressions Chest X-Ray 09/05/17 0000 Signed Impressions: Service Date/Time: Tuesday, September 05, 2017 01:50 - CONCLUSION: 1. Right PICC line in superior vena cava. Subsegmental basilar airspace disease. No effusion or pneumothorax. Cory Camarena MD PICC Line Insertion 09/04/17 0600 Signed Impressions: Service Date/Time: Monday, September 04, 2017 15:12 - CONCLUSION: 1. Uncomplicated central venous Power PICC line placement. 2. The PICC line can be used immediately. Santy Burciaga Jr., MD Lumbar Puncture Fluoroscopy 09/04/17 0000 Signed Impressions: Service Date/Time: Monday, September 04, 2017 15:12 - CONCLUSION: Uncomplicated fluoroscopically guided lumbar puncture with pressures as above. Intrathecal methotrexate was administered. Santy Burciaga Jr., MD Chest CT 09/01/17 0000 Signed Impressions: Service Date/Time: Friday, September 01, 2017 16:48 - CONCLUSION: 1. No definite evidence for metastatic disease to the thorax. 2. 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 3. Scattered atelectasis and scarring in the lungs. 4. Moderate coronary calcifications. Cory Camarena MD Abdomen/Pelvis CT 09/01/17 0000 Signed Impressions: Service Date/Time: Friday, September 01, 2017 16:48 - CONCLUSION: 1. Post surgical changes with findings of cholecystectomy and prostatectomy. 2. Scattered diverticular disease of the colon without diverticulitis. 3. Lobulated cyst in the upper poles of both kidneys with some calcification on the left. 4. Retroperitoneal fat herniates through the left hemidiaphragm into the posterior left lung base. 5. No acute intraperitoneal or pelvic process to explain current clinical symptoms Gavin Lynn MD Bone Biopsy CT 08/30/17 1535 Signed Impressions: Service Date/Time: August 16:19 - CONCLUSION: 1. Uncomplicated CT guided bone marrow aspirate. 2. Uncomplicated CT guided bone marrow biopsy. Srikanth Ambrosio MD Thoracic Spine CT 08/30/1799 Signed Impressions: Service Date/Time: August 01:37 - CONCLUSION: 1. No fracture, subluxation or other acute abnormality of the thoracic spine. 2. Scoliosis and mild multifocal degenerative changes as above. 3. Complex appearing cystic structures of the upper poles of both kidneys. Comparison to any previous outside facility studies is recommended to confirm chronicity and stability. Contrast enhanced study of the abdomen suggested if felt clinically indicated, preferably MRI if there are no contraindications. Tim Jones MD Lumbar Spine CT 08/30/1799 Signed Impressions: Service Date/Time: August 01:37 - CONCLUSION: 1. No acute fracture or acute subluxation of the lumbar spine. 2. 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 3. Mild spinal and bilateral foraminal stenosis at L4/L5. 4. Mild right and moderate left foraminal stenosis at L5/S1. 5. Benign vertebral body hemangioma of L1. No concerning lumbar spine bone lesion. Tim Jones MD Head CT 08/30/1799 Signed Impressions: Service Date/Time: August 01:37 - CONCLUSION: Small frontal maddy-falcine subdural blood is unchanged. Tim Jones MD Carotid Artery Ultrasound 08/30/17 0000 Signed Impressions: Service Date/Time: August 07:52 - CONCLUSION: 1. Diffuse calcified plaque throughout carotid arteries bilaterally with resultant moderate, 50-69%%, stenosis of the internal carotid arteries bilaterally and likely moderate stenosis of the left common carotid artery. 2. Antegrade vertebral artery flow bilaterally. Lopez Taylor MD Brain MRI 08/30/17 0000 Signed Impressions: Service Date/Time: August 09:27 - CONCLUSION: 1. Right frontal parafalcine abnormality on CT exam corresponds to a small meningioma. No definitive intra-or extra-axial hemorrhage. Lopez Taylor MD Objective Remarks General - elderly gentleman, awake, weak, ill-appearing CV - regular heart sounds, no murmurs Chest - clear bilateral, good air entry, no wheezes Abdomen - soft, non-tender Extremities -warm and well perfused, 2+ pitting edema, : scrotum edematous Procedures Bone marrow biopsy 08/30/2017. Line: PICC A/P Problem List: (1) Anemia ICD Code: D64.9 - Anemia, unspecified Status: Acute (2) Thrombocytopenia ICD Code: D69.6 - Thrombocytopenia, unspecified Status: Acute (3) GI bleed ICD Code: K92.2 - Gastrointestinal hemorrhage, unspecified Status: Acute (4) Back pain ICD Code: M54.9 - Dorsalgia, unspecified Status: Acute (5) History of CO (myocardial infarction) ICD Code: I25.2 - Old myocardial infarction (6) B-cell lymphoma ICD Code: C85.10 - Unspecified B-cell lymphoma, unspecified site Status: Acute (7) Abnormal head CT ICD Code: R93.0 - Abnormal findings on diagnostic imaging of skull and head, not elsewhere classified (8) Hearing loss ICD Code: H91.90 - Unspecified hearing loss, unspecified ear (9) Leukocytosis ICD Code: D72.829 - Elevated white blood cell count, unspecified Assessment and Plan -- Septic shock - resolved -- E coli and strep viridans bacteremia - repeat blood cx are negative to date. Etiology of E coli in blood - No evidence of a UTI based on symptoms. ID consulted for further recommendation. Continue IV aztreonam for now.Echocardiogram shows an EF of 55-60% with moderate concentric left ventricular hypertrophy. No vegetation reported. -- Tumor lysis syndrome - improving. Allopurinol on hold -- Hyperkalemia now hypokalemia and hypocalcemia.-Continue to replace. monitor closely. -- LUCA/hypernatremia- creatinine trending down, good urine output. Continue half normal saline due to hypernatremia. Monitor BMPs every 6 hours. Cautioned to not overcorrect quickly sodium levels. Encourage p.o. hydration ( 250ml water q4-6hrs while awake). Nephrology following, appreciate recs. Pt has been started on diuril. Monitor Cr closely. -- Metabolic acidosis - improved -- Pancytopenia - worsening, requiring additional transfusion. Transfusion and G-CSF per oncology. Pt did receive one unit of platelet overnight per heme/ onc recs -- Burkitt's lymphoma receiving chemo. Management per hematology -- History of prostate cancer status post XRT -- Diarrhea - seems to have improved, monitor. -- Scrotal edema and small tears noted, pt having excrutiating pain w urination due to urine touching those open tears and burning. I spoke w Dr. Duron and she doesn't recommend placing a jensen as he is at high risk for bleeding due to his low plt count and also high risk for infection due to his neutropenia. I have ordered desitin cream and lidocaine jelly to be applied. I have also spoke w Pt's RN and he will try his best to keep pt dry as much as possible. If possible to place a condom catheter, will do but at this time, edema is too much and this cannot be done. nystatin powder also ordered Discharge Planning Continue to replace electrolytes. Monitor sodium levels closely. Transfuse per heme/onc recs. CM assisting w d/c planning as family wishes to pursue care in [place] Problem Qualifiers (1) Anemia: Qualified Codes: D64.9 - Anemia, unspecified (2) Back pain: Qualified Codes: M54.9 - Dorsalgia, unspecified (3) Hearing loss: Qualified Codes: H91.92 - Unspecified hearing loss, left ear (4) Leukocytosis: Qualified Codes: D72.829 - Elevated white blood cell count, unspecified Jazmin Martin MD September 12, 2017 10:42
[2017-09-12] MEDS ORDERED: CALCIUM GLUCONATE INJ 1 GM in DEXTROSE 5% IN WATER 100ML INJ 100 ML IV ONE ×2 (11:30)
[2017-09-12] MEDS ORDERED: POTASSIUM CHLORIDE 20 MEQ CONTROLLED RELEASE TAB PO ONE (11:45)
[2017-09-12] MEDS ORDERED: CALCIUM GLUCONATE 10% 1 GM/10 ML VIAL ONE (12:01)
[2017-09-12 13:23] LABS: BICARBONATE 26.9 MEQ/L (21.0-32.0); CALCIUM 6.1 MG/DL (8.5-10.1); CREATININE 1.19 MG/DL (0.60-1.30)
[2017-09-12] MEDS: FILGRASTIM INJ 480 MCG in DEXTROSE 5% IN WATER INJ 50 ML IV SCH ×2 (13:43)
[2017-09-12 13:49] LABS: TOTAL PROTEIN 4.5 GM/DL (6.4-8.2)
[2017-09-12 13:50] LABS: CALCIUM-PROTEIN CORRECTED 7.3 MG/DL (8.5-10.1)
[2017-09-12] MEDS ORDERED: VANCOMYCIN INJ 2,000 MG in SODIUM CHLORID 0.9% 500 ML INJ 500 ML IV ONE (17:00)
--- NOTE | 2017-09-12 18:29 | PD.ONC.PN ---
Subjective Subjective Remarks Developed maceration skin under swollen scrotum. Managed well with nursing to urinate w/o jensen. Objective Data Date Time Temp Pulse Resp B/P (MAP) Pulse Ox O2 Delivery O2 Flow Rate FiO2 09/12/17 16:00 97 Nasal Cannula 2.00 09/12/17 16:00 98.5 85 20 156/77 (103) 97 09/12/17 13:00 95 Nasal Cannula 2.00 09/12/17 11:00 97.8 76 24 154/77 (102) 94 09/12/17 11:00 76 09/12/17 11:00 94 Nasal Cannula 2.00 09/12/17 07:00 75 09/12/17 07:00 95 Nasal Cannula 2.00 09/12/17 07:00 97.6 75 20 152/64 (93) 95 09/12/17 04:00 98.4 80 22 140/69 (92) 93 09/12/17 04:00 93 Nasal Cannula 2.00 09/12/17 04:00 80 09/12/17 00:00 98.2 77 20 141/68 (92) 94 09/12/17 00:00 94 Nasal Cannula 2.00 09/12/17 00:00 77 09/11/17 20:00 80 09/11/17 20:00 93 Nasal Cannula 2.00 09/11/17 20:00 98.1 80 20 157/71 (99) 93 09/11/17 19:05 96 Nasal Cannula 2.00 09/12/17 09/12/17 09/12/17 06:59 14:59 22:59 Intake Total 1546 ml 720 ml Output Total 400 ml 625 ml Balance 1146 ml 95 ml Result Diagram: 09/12/17 1220 09/12/17 1220 Laboratory Results Laboratory Tests Test 09/12/17 04:25 09/12/17 12:20 White Blood Count 0.1 TH/MM3 Red Blood Count 2.44 MIL/MM3 Hemoglobin 7.5 GM/DL Hematocrit 20.9 % Mean Corpuscular Volume 85.8 FL Mean Corpuscular Hemoglobin 30.7 PG Mean Corpuscular Hemoglobin Concent 35.8 % Red Cell Distribution Width 14.0 % Platelet Count 15 TH/MM3 14 TH/MM3 Mean Platelet Volume 6.8 FL CBC Comment AUTO DIFF Differential Total Cells Counted 15 Lymphocytes % 100 % Neutrophils # (Manual) 0.0 TH/MM3 Differential Comment FINAL DIFF MANUAL Platelet Estimate RARE Platelet Morphology Comment NORMAL Blood Urea Nitrogen 58 MG/DL 50 MG/DL Creatinine 1.37 MG/DL 1.19 MG/DL Random Glucose 168 MG/DL 185 MG/DL Total Protein 4.7 GM/DL 4.5 GM/DL Albumin 2.2 GM/DL Calcium Level 6.3 MG/DL 6.1 MG/DL Magnesium Level 2.1 MG/DL Uric Acid 0.5 MG/DL Alkaline Phosphatase 89 U/L Aspartate Amino Transf (AST/SGOT) 50 U/L Alanine Aminotransferase (ALT/SGPT) 116 U/L Lactate Dehydrogenase 1334 U/L Total Bilirubin 1.2 MG/DL Sodium Level 150 MEQ/L 148 MEQ/L Potassium Level 3.2 MEQ/L 3.1 MEQ/L Chloride Level 115 MEQ/L 113 MEQ/L Carbon Dioxide Level 28.3 MEQ/L 26.9 MEQ/L Anion Gap 7 MEQ/L 8 MEQ/L Estimat Glomerular Filtration Rate 51 ML/MIN 60 ML/MIN Protein Corrected Calcium 7.5 MG/DL 7.3 MG/DL Phosphorus Level 2.9 MG/DL Random Vancomycin Level 14.1 COMMENT Administered Medications Medications (Trade) Dose Ordered Sig/Robert Route PRN Reason Start Time Stop Time Status Last Admin Dose Admin Sodium Chloride (NS Flush) 2 ml UNSCH PRN IV FLUSH FLUSH AFTER USING IV ACCESS 08/29/17 15:45 09/08/17 23:42 Sodium Chloride (NS Flush) 2 ml BID IV FLUSH 08/29/17 21:00 09/12/17 09:22 Pantoprazole Sodium (Protonix Inj) 40 mg DAILY IV PUSH 08/30/17 09:00 09/12/17 09:20 Ondansetron HCl (Zofran Inj) 4 mg Q6H PRN IV PUSH NAUSEA OR VOMITING 08/29/17 16:00 09/09/17 10:08 Albuterol/ Ipratropium (Duoneb Neb) 1 ampule Q2HR NEB PRN INH WHEEZING 08/29/17 16:00 09/04/17 23:32 Chlorhexidine Gluconate (Chlorhexidine 2% Cloth) Taper DAILY@04 TOP 08/30/17 04:00 08/26/18 03:59 09/12/17 04:00 Senna/Docusate Sodium ([place]-Colace) 1 tab BID PO 08/29/17 21:00 09/12/17 09:21 Albuterol Sulfate (Proair Hfa Inh) 2 puff Q6H PRN INH SHORTNESS OF BREATH 08/29/17 18:00 08/30/17 10:20 Amlodipine Besylate (Norvasc) 10 mg DAILY PO 08/30/17 09:00 Future Hold 09/05/17 10:12 Budesonide/ Formoterol Fumarate (Symbicort 160-4.5 Mcg Inh) 2 puff BID INH 08/29/17 21:00 09/12/17 09:24 Ramipril (Altace) 10 mg DAILY PO 08/30/17 14:00 Future Hold 09/05/17 10:12 Morphine Sulfate (Morphine Inj) 2 mg Q4H PRN IV PUSH Pain 3 to 6 09/01/17 16:00 09/12/17 09:21 Morphine Sulfate (Morphine Inj) 4 mg Q4H PRN IV PUSH Pain 7 to 10 09/01/17 16:00 09/11/17 00:35 Allopurinol (Zyloprim) 300 mg BID PO 09/04/17 21:00 Future Hold 09/04/17 20:56 Sodium Chloride (NS Flush) DAILY IVF 09/05/17 09:00 09/12/17 09:23 Heparin Sodium (Porcine) (Heparin Central Flush) DAILY IV FLUSH 09/05/17 09:00 09/12/17 09:19 Sodium Chloride (NS Flush) UNSCH PRN IVF SEE PROTOCOL 09/04/17 16:00 09/10/17 21:58 Sodium Chloride (NS Flush) UNSCH PRN IVF SEE PROTOCOL 09/04/17 16:00 09/10/17 21:59 Norepinephrine Bitartrate 250 ml @ 7.5 mls/hr TITRATE PRN IV Blood pressure management 09/06/17 10:15 09/08/17 05:40 Aztreonam 1000 mg/ Sodium Chloride 100 ml @ 200 mls/hr Q8H IV 09/06/17 12:00 09/12/17 12:11 Nystatin (Mycostatin Liq) 5 ml QID SWISH-SWAL 09/09/17 13:00 09/12/17 13:43 Filgrastim 480 mcg/Dextrose 51.6 ml @ 100 mls/hr DAILY@14 IV 09/11/17 21:00 09/12/17 13:43 Sodium Chloride 1,000 ml @ 42 mls/hr [id number] IV 09/11/17 16:30 09/12/17 10:19 Chlorothiazide (Diuril) 250 mg BID@,18 PO 09/11/17 20:00 09/12/17 09:21 Potassium Chloride (KCl) 20 meq Q12HR PO 09/11/17 21:00 09/12/17 09:21 Zinc Oxide (Desitin 40% Oint) 1 applic UNSCH PRN TOPICAL DIAPER RASH 09/12/17 09:30 09/12/17 10:26 Nystatin (Mycostatin Powder) 1 applic Q8HR TOPICAL 09/12/17 09:30 09/12/17 13:44 Vancomycin HCl 2000 mg/Sodium Chloride 520 ml @ 260 mls/hr ONCE ONCE IV 09/12/17 17:00 09/12/17 18:59 09/12/17 17:48 Objective Remarks GENERAL: Well-nourished, pallor well-developed patient. SKIN: Warm and dry. HEAD: Normocephalic. EYES: No scleral icterus. No injection or drainage. NECK: Supple, trachea midline. No JVD or lymphadenopathy. LYMPHATIC: No adenopathy. CARDIOVASCULAR: Regular rate and rhythm without murmurs. RESPIRATORY: Breath sounds equal bilaterally. No accessory muscle use. GASTROINTESTINAL: Abdomen soft, non-tender, nondistended. EXTREMITIES: No cyanosis, or significant edema. Scrotal edema. MUSCULOSKELETAL: Adequate muscle tone. NEUROLOGICAL: No obvious focal deficit. Awake, alert, and oriented x3. PSYCHIATRIC: Appropriate mood and affect; insight and judgment normal. Assessment/Plan Problem List: (1) B-cell lymphoma ICD Codes: C85.10 - Unspecified B-cell lymphoma, unspecified site Status: Acute Plan: 09/12/17. Burkitt's lymphoma, AEROSPACE PROJECT MANAGER positive poor prognosis. However pt desirous of treatment. Course complicated by tumor lysis, renal failure, electrolyte abnormality, bacteremia, transfusion dependent anemia and thrombocytopenia. Currently problems with anasarca, scrotal and leg edema. Signs of platelet recovery today. Continue GCSF. Discussed w/ oncologist in [place] pt's home town coordination of treatment when he leaves here. He has flight schedule 09/22/17. agreed to assume care, plan to fax records, appt to be made for the Sunday after his return home. 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 ++ Burkitts lymphoma. ++also has bone pain, back pain, elevated LDH, as well as the sweats that suggests a more systemic manifestation of bone marrow disorder. ++ Nucleated red cells seen on peripheral smear. no acute blasts. 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 09/04: PICC line placement today, start R-EPOCH, give IT MTX. 09/05: Rituxan infusion complete. patient in TLS. transferred to ICU. private branch exchange installer consulted. 09/06: start EPOCH, window closing as patient is now leukopenic. give blood and platelets. 09/07: give D2 EPOCH. give 1 unit pRBC, check repeat H/H. 09/08: give D3 EPOCH. 1 unit pRBC, 1 unit platelets. 09/09: D4 EPOCH, 2 units platelets. .20: D5--finish 4th bag of EPOCH, give Cytoxan this evening. (2) Tumor lysis syndrome ICD Codes: E88.3 - Tumor lysis syndrome Plan: Continue hydration, diuril, replace electrolytes. Nephrology following. Magnesium normal. Calcium trending up. Still hyper natremic. Replace K orally. Renal function improving. (3) Sepsis ICD Codes: A41.9 - Sepsis, unspecified organism Plan: Abx support. Off steroids. Monitor for fever. Assessment 72y/o male with anemia + thrombocytopenia. history of prostate cancer, status post prostatectomy, coronary artery disease, s/p stent placement. 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 Plan 1. Follow platelet count 2. Anticipate transfuse PRBC tomorrow 2. Potassium replaced 3. Agree with decreasing rate of IV fluids for now. Appreciate nephrology input. 4. Continue G-CSF support this evening with Neupogen. 5. Follow up with Dr. Solis when return to [place], [place] Shahla Duron MD September 12, 2017 18:29
[2017-09-12 19:17] LABS: HEMOGLOBIN 7.1 GM/DL (13.0-17.0); MEAN CELL VOLUME 86.6 FL (80.0-100.0); MEAN CORPUSCULAR HEMOGLOBIN 30.8 PG (27.0-34.0); MEAN CORPUSCULAR HGB CONC 35.6 % (32.0-36.0); MEAN PLATELET VOLUME 7.1 FL (7.0-11.0); RED CELL DISTRIBUTION WIDTH 14.3 % (11.6-17.2); WHITE BLOOD COUNT 0.1 TH/MM3 (4.0-11.0)
[2017-09-12 19:40] LABS: HEMATOCRIT 19.9 % (39.0-51.0)
[2017-09-12 19:41] LABS: PLATELET COUNT 9 TH/MM3 (150-450)
[2017-09-12 19:43] LABS: ALBUMIN 2.1 GM/DL (3.4-5.0); BICARBONATE 27.9 MEQ/L (21.0-32.0); CALCIUM 6.5 MG/DL (8.5-10.1); CREATININE 1.26 MG/DL (0.60-1.30)
[2017-09-12 19:50] LABS: CALCIUM-PROTEIN CORRECTED 7.7 MG/DL (8.5-10.1); TOTAL BILIRUBIN ADULT 1.1 MG/DL (0.2-1.0); TOTAL PROTEIN 4.7 GM/DL (6.4-8.2)
[2017-09-12] MEDS: ACETAMINOPHEN 325 MG TAB PO PRN (20:50)
[2017-09-12] MEDS: LIDOCAINE 2% JELLY 30 ML TUBE TOPICAL SCH (20:51)
[2017-09-12] MEDS ORDERED: FLUCONAZOLE 100 MG PREMIX BAG 50 ML IV ONE (21:00)
[2017-09-13] VITALS (13 sets, daily range): BP systolic 138–166; BP diastolic 76–96; PULSE 74–98; RESP 18–24; TEMP 97.9–98.8; O2SAT 96–99
[2017-09-13] MEDS: AZTREONAM INJ 1,000 MG in SODIUM CHLORIDE 0.9% INJ 100 ML IV SCH ×4 (01:16→22:00)
[2017-09-13] MEDS: ACETAMINOPHEN 325 MG TAB PO PRN (01:17)
[2017-09-13 01:56] LABS: ALBUMIN 2.1 GM/DL (3.4-5.0); BICARBONATE 29.2 MEQ/L (21.0-32.0); CALCIUM 6.3 MG/DL (8.5-10.1); CALCIUM-PROTEIN CORRECTED 7.6 MG/DL (8.5-10.1); CREATININE 1.13 MG/DL (0.60-1.30); TOTAL BILIRUBIN ADULT 1.4 MG/DL (0.2-1.0); TOTAL PROTEIN 4.4 GM/DL (6.4-8.2)
[2017-09-13] MEDS: CHLORHEXIDINE GLUCONATE 2 % 1 PACK (2 CLOTHS) TOP SCH (05:13)
[2017-09-13] MEDS ORDERED: SODIUM CHLOR 0.9% 250 ML INJ 250 ML IV ONE (06:00)
[2017-09-13] MEDS: NYSTATIN 100,000 U/GM PWD 15 GM BTL TOPICAL SCH ×3 (06:30→22:01)
[2017-09-13 06:56] LABS: HEMATOCRIT 21.2 % (39.0-51.0); HEMOGLOBIN 7.5 GM/DL (13.0-17.0); MEAN CELL VOLUME 85.8 FL (80.0-100.0); MEAN CORPUSCULAR HEMOGLOBIN 30.5 PG (27.0-34.0); MEAN CORPUSCULAR HGB CONC 35.5 % (32.0-36.0); MEAN PLATELET VOLUME 6.7 FL (7.0-11.0); RED BLOOD COUNT 2.47 MIL/MM3 (4.50-5.90); RED CELL DISTRIBUTION WIDTH 13.8 % (11.6-17.2); WHITE BLOOD COUNT 0.1 TH/MM3 (4.0-11.0)
[2017-09-13 07:10] LABS: PLATELET COUNT 16 TH/MM3 (150-450)
[2017-09-13 07:40] LABS: RANDOM VANCOMYCIN 21.7 COMMENT
--- NOTE | 2017-09-13 08:57 | HHI.NPPN ---
Subjective General Problems: Edema, Hypotension Renal Failure: Acute History of Present Illness Patient is a 72 year old male with a past medical history of prostate cancer, asthma, gastroesophageal reflux, Muñoz's esophagus,hypertension, new anemia, new thrombocytopenia, rotator cuff injury, and back pain. 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 Patient was receiving Rituxan last night and developed a reaction with low grade temperature, pain, and tremor. Plan to transfer patient to intensive care unit as patient is at risk for fluid overload with blood transfusions and acute kidney injury. Nephrology is consulted for acute kidney injury with creatinine of 2.44 with a admission creatinine of 0.99. HGB is low at 7.2, Plt of 27, NA 148, CO2 14.5. Patient is resting comfortably now with his only complaint is that is dizzy with ambulation. Additional Remarks Alert and oriented. Up out of bed in chair. Edema is increasing. (Janet Ribeiro) Review of Systems Respiratory Respiratory Remarks Denies any SOB (Janet Ribeiro) Cardiovascular Cardiac: Edema Cardiac Remarks Denies any CP (Janet Ribeiro) Gastrointestinal GI Remarks Denies any abdominal pain (Janet Ribeiro) Objective Data Data Vital Signs Date Time Temp Pulse Resp B/P (MAP) Pulse Ox O2 Delivery O2 Flow Rate FiO2 09/13/17 08:18 99 Nasal Cannula 2.00 09/13/17 08:18 98.1 98 20 159/80 (106) 99 09/13/17 05:11 Nasal Cannula 2.00 09/13/17 05:11 98.0 84 18 166/88 (114) 96 09/13/17 04:00 74 09/13/17 01:53 97.9 91 18 161/81 97 09/13/17 01:41 97.9 86 19 154/79 96 09/13/17 00:00 74 09/12/17 23:45 98.2 87 19 161/81 96 09/12/17 23:00 95 Nasal Cannula 3.00 09/12/17 22:05 98.2 89 147/71 98 09/12/17 21:46 98.0 87 20 151/76 97 09/12/17 20:45 97 Nasal Cannula 2.00 09/12/17 20:45 98.1 90 19 163/83 (109) 97 09/12/17 20:00 92 09/12/17 16:00 97 Nasal Cannula 2.00 09/12/17 16:00 98.5 85 20 156/77 (103) 97 09/12/17 13:00 95 Nasal Cannula 2.00 09/12/17 11:00 97.8 76 24 154/77 (102) 94 09/12/17 11:00 76 09/12/17 11:00 94 Nasal Cannula 2.00 (Janet Ribeiro) -: 09/13/17 0640 09/13/17 0115 Physical Exam General Appearance: No Acute Distress, Comfortable (Janet Ribeiro) Throat Throat Exam: Oral Mucosa [place] & Moist (Janet Ribeiro) Pulmonary Resp Exam: Breath Sounds Equal, No Distress Resp Remarks O2 NC 2 liters (Janet Ribeiro) Cardiology CV Exam: Regular, Normal Sinus Rhythm (Janet Ribeiro) Gastrointestinal/Abdomen GI Exam: Soft, Non-Tender, Distended (Janet Ribeiro) Genitourinary Exam: Flank Non-Tender (Janet Ribeiro) Integumentary Skin Exam: Clear, Warm (Janet Ribeiro) Extremeties Extremities Exam: Moderate Edema, Dependent Edema (Janet Ribeiro) Neurologic Neuro Exam: Alert, Awake, Oriented (Janet Ribeiro) Psychiatric Psych Exam: Appropriate Responses (Janet Ribeiro) Assessment/Plan Electrolyte Assessment: Hypernatremia, Hypocalcemia, Hypokalemia Problem List: (1) Acute kidney injury ICD Codes: N17.9 - Acute kidney failure, unspecified Plan: Acute kidney injury with creatinine of 2.44 when consulted. Acute kidney injury most likely related to tumor lysis. On admission creatinine of 0.99. CT of abdomen on the with kidney with normal in size and shape. There is no mass, stone or hydronephrosis. Lobulated cysts in the upper poles of both kidneys with some benign-appearing calcification on the left Creatinine stable Plan Will monitor renal panel periodically Avoid nephrotoxins. Hypernatremia at 152 will change IVF to D5W at 45ml/min Albumin low will add Albumin every 12 hours to help shift fluid Encouraged to elevate legs throughout day Continue diuril for hypernatremia and swelling Hypokalemia on potassium replacement. Hypocalcemia improving will order calcium gluconate and oral replacement. (2) B-cell lymphoma ICD Codes: C85.10 - Unspecified B-cell lymphoma, unspecified site Status: Acute Plan: Oncology managing (3) Anemia ICD Codes: D64.9 - Anemia, unspecified Status: Acute Plan: Monitoring (Janet Ribeiro) Problem List: (1) Acute kidney injury ICD Codes: N17.9 - Acute kidney failure, unspecified Plan: Acute kidney injury with creatinine of 2.44 when consulted. Acute kidney injury most likely related to tumor lysis. On admission creatinine of 0.99. CT of abdomen on the with kidney with normal in size and shape. There is no mass, stone or hydronephrosis. Lobulated cysts in the upper poles of both kidneys with some benign-appearing calcification on the left Creatinine stable Plan Will monitor renal panel periodically Avoid nephrotoxins. Hypernatremia at 152 will change IVF to D5W at 45ml/min Albumin low will add Albumin every 12 hours to help shift fluid Encouraged to elevate legs throughout day Continue diuril for hypernatremia and swelling Hypokalemia on potassium replacement. Hypocalcemia improving will order calcium gluconate and oral replacement. Patient seen and examined, agree with above. Na. is 152, started on D5W , follow the urine out put and BMP. (2) B-cell lymphoma ICD Codes: C85.10 - Unspecified B-cell lymphoma, unspecified site Status: Acute Plan: Oncology managing (3) Anemia ICD Codes: D64.9 - Anemia, unspecified Status: Acute Plan: Monitoring (Demi Mendez MD) Problem Qualifiers (1) Anemia: Qualified Codes: D64.9 - Anemia, unspecified Janet Ribeiro September 13, 2017 08:57 Demi Mendez MD September 17, 2017 18:17
[2017-09-13 10:22] LABS: LYMPHOCYTES 100 % (9-44)
[2017-09-13] MEDS: DEXTROSE 5% IN WATE 1000ML INJ 1,000 ML IV SCH (10:58)
[2017-09-13] MEDS: ALBUMIN 25% INJ 50 ML IV SCH ×2 (10:59→21:59)
[2017-09-13] MEDS: FLUCONAZOLE 100 MG TAB PO SCH (10:59)
[2017-09-13] MEDS: PANTOPRAZOLE SODIUM 40 MG VIAL IV PUSH SCH (11:00)
[2017-09-13] MEDS: SODIUM CHLORIDE 0.9% FLUSH 10 ML FLUSH IV FLUSH SCH ×2 (11:00→21:00)
[2017-09-13] MEDS: NYSTATIN SUSP 500,000 U/5 ML CUP SWISH-SWAL SCH ×5 (11:02→21:58)
[2017-09-13] MEDS: SODIUM CHLORIDE 0.9% FLUSH 10 ML FLUSH IVF SCH (11:02)
[2017-09-13] MEDS: POTASSIUM CHLORIDE 10 MEQ CONTROLLED RELEASE TAB PO SCH ×2 (11:03→21:59)
[2017-09-13] MEDS: CALCIUM CARBONATE 1.25 GM (CA 500 MG) TAB PO SCH ×2 (11:04→22:00)
[2017-09-13] MEDS: CHLOROTHIAZIDE 250 MG TAB PO SCH ×2 (11:04→18:08)
[2017-09-13] MEDS: DOCUSATE SODIUM 50 MG/SENNA 8.6 MG TAB PO SCH ×2 (11:04→21:00)
[2017-09-13] MEDS: BUDESONIDE-FORMOTEROL 160/4.5 MCG INHALER INH SCH ×2 (11:05→22:01)
[2017-09-13] MEDS: ALBUTEROL SULFATE 90 MCG/ACT HFA 8 GM INHALER INH PRN (11:05)
--- NOTE | 2017-09-13 11:12 | HHI.PR ---
Subjective Remarks With low K , replaced Also LE edema, scrotal edema, worsening. will give lasix Thrush, not able to eat much .Also appetite is decreased Consul PT Patient denies any shortness of breath. Since he does not have any chest pain or palpitations. Feels a little bit improved today. Will like to start physical therapy. Feels tired. Wants to improve and to go back home in [place] says he has a ticket for 09/22 Objective Vitals Vital Signs Date Time Temp Pulse Resp B/P (MAP) Pulse Ox O2 Delivery O2 Flow Rate FiO2 09/13/17 08:18 99 Nasal Cannula 2.00 09/13/17 08:18 98.1 98 20 159/80 (106) 99 09/13/17 05:11 Nasal Cannula 2.00 09/13/17 05:11 98.0 84 18 166/88 (114) 96 09/13/17 04:00 74 09/13/17 01:53 97.9 91 18 161/81 97 09/13/17 01:41 97.9 86 19 154/79 96 09/13/17 00:00 74 09/12/17 23:45 98.2 87 19 161/81 96 09/12/17 23:00 95 Nasal Cannula 3.00 09/12/17 23:00 95 Nasal Cannula 3.00 09/12/17 22:05 98.2 89 147/71 98 09/12/17 21:46 98.0 87 20 151/76 97 09/12/17 20:45 97 Nasal Cannula 2.00 09/12/17 20:45 98.1 90 19 163/83 (109) 97 09/12/17 20:00 92 09/12/17 16:00 97 Nasal Cannula 2.00 09/12/17 16:00 97 Nasal Cannula 2.00 09/12/17 16:00 98.5 85 20 156/77 (103) 97 09/12/17 13:00 95 Nasal Cannula 2.00 I/O 09/12/17 09/12/17 09/12/17 09/13/17 09/13/17 09/13/17 07:00 15:00 23:00 07:00 15:00 23:00 Intake Total 1546 ml 720 ml 700 ml 1312 ml Output Total 400 ml 625 ml 450 ml 1000 ml Balance 1146 ml 95 ml 250 ml 312 ml Intake Oral 960 ml 720 ml 200 ml 240 ml IV Total 586 ml 500 ml 444 ml Packed Cells 400 ml Platelets 228 ml Output Urine Total 400 ml 625 ml 450 ml 1000 ml # Voids 6 3 1 # Bowel Movements 0 1 1 Result Diagram: 09/13/17 0640 09/13/17 0115 Imaging Last Impressions Chest X-Ray 09/05/17 0000 Signed Impressions: Service Date/Time: Tuesday, September 05, 2017 01:50 - CONCLUSION: 1. Right PICC line in superior vena cava. Subsegmental basilar airspace disease. No effusion or pneumothorax. Cory Camarena MD PICC Line Insertion 09/04/17 0600 Signed Impressions: Service Date/Time: Monday, September 04, 2017 15:12 - CONCLUSION: 1. Uncomplicated central venous Power PICC line placement. 2. The PICC line can be used immediately. Santy Burciaga Jr., MD Lumbar Puncture Fluoroscopy 09/04/17 0000 Signed Impressions: Service Date/Time: Monday, September 04, 2017 15:12 - CONCLUSION: Uncomplicated fluoroscopically guided lumbar puncture with pressures as above. Intrathecal methotrexate was administered. Santy Burciaga Jr., MD Chest CT 09/01/17 0000 Signed Impressions: Service Date/Time: Friday, September 01, 2017 16:48 - CONCLUSION: 1. No definite evidence for metastatic disease to the thorax. 2. 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 3. Scattered atelectasis and scarring in the lungs. 4. Moderate coronary calcifications. Cory Camarena MD Abdomen/Pelvis CT 09/01/17 0000 Signed Impressions: Service Date/Time: Friday, September 01, 2017 16:48 - CONCLUSION: 1. Post surgical changes with findings of cholecystectomy and prostatectomy. 2. Scattered diverticular disease of the colon without diverticulitis. 3. Lobulated cyst in the upper poles of both kidneys with some calcification on the left. 4. Retroperitoneal fat herniates through the left hemidiaphragm into the posterior left lung base. 5. No acute intraperitoneal or pelvic process to explain current clinical symptoms Gavin Lynn MD Bone Biopsy CT 08/30/17 1535 Signed Impressions: Service Date/Time: August 16:19 - CONCLUSION: 1. Uncomplicated CT guided bone marrow aspirate. 2. Uncomplicated CT guided bone marrow biopsy. Srikanth Ambrosio MD Thoracic Spine CT 08/30/1799 Signed Impressions: Service Date/Time: August 01:37 - CONCLUSION: 1. No fracture, subluxation or other acute abnormality of the thoracic spine. 2. Scoliosis and mild multifocal degenerative changes as above. 3. Complex appearing cystic structures of the upper poles of both kidneys. Comparison to any previous outside facility studies is recommended to confirm chronicity and stability. Contrast enhanced study of the abdomen suggested if felt clinically indicated, preferably MRI if there are no contraindications. Tim Jones MD Lumbar Spine CT 08/30/1799 Signed Impressions: Service Date/Time: August 01:37 - CONCLUSION: 1. No acute fracture or acute subluxation of the lumbar spine. 2. 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 3. Mild spinal and bilateral foraminal stenosis at L4/L5. 4. Mild right and moderate left foraminal stenosis at L5/S1. 5. Benign vertebral body hemangioma of L1. No concerning lumbar spine bone lesion. Tim Jones MD Head CT 08/30/1799 Signed Impressions: Service Date/Time: August 01:37 - CONCLUSION: Small frontal maddy-falcine subdural blood is unchanged. Tim Jones MD Carotid Artery Ultrasound 08/30/17 0000 Signed Impressions: Service Date/Time: August 07:52 - CONCLUSION: 1. Diffuse calcified plaque throughout carotid arteries bilaterally with resultant moderate, 50-69%%, stenosis of the internal carotid arteries bilaterally and likely moderate stenosis of the left common carotid artery. 2. Antegrade vertebral artery flow bilaterally. Lopez Taylor MD Brain MRI 08/30/17 0000 Signed Impressions: Service Date/Time: August 09:27 - CONCLUSION: 1. Right frontal parafalcine abnormality on CT exam corresponds to a small meningioma. No definitive intra-or extra-axial hemorrhage. Lopez Taylor MD Objective Remarks General appearance: Very pleasant elderly gentleman, awake, weak, ill-appearing Cardiovascular: Regular heart sounds, no murmurs Respiratory: Clear bilateral, good air entry, no wheezes Abdomen: soft, non-tender, no rebound. Extremities: warm and well perfused, 3+ pitting edema : scrotal edema Procedures Bone marrow biopsy 08/30/2017. Line: PICC A/P Problem List: (1) Anemia ICD Code: D64.9 - Anemia, unspecified Status: Acute (2) Thrombocytopenia ICD Code: D69.6 - Thrombocytopenia, unspecified Status: Acute (3) GI bleed ICD Code: K92.2 - Gastrointestinal hemorrhage, unspecified Status: Acute (4) Back pain ICD Code: M54.9 - Dorsalgia, unspecified Status: Acute (5) History of [place] (myocardial infarction) ICD Code: I25.2 - Old myocardial infarction (6) B-cell lymphoma ICD Code: C85.10 - Unspecified B-cell lymphoma, unspecified site Status: Acute (7) Abnormal head CT ICD Code: R93.0 - Abnormal findings on diagnostic imaging of skull and head, not elsewhere classified (8) Hearing loss ICD Code: H91.90 - Unspecified hearing loss, unspecified ear (9) Leukocytosis ICD Code: D72.829 - Elevated white blood cell count, unspecified Assessment and Plan With low K , replaced Also LE edema, will give lasix Thrush, not able to eat much .Also appetite is decreased Consul PT Septic shock - resolved E coli and strep viridans bacteremia - repeat blood cx are negative to date. Etiology of E coli in blood - No evidence of a UTI based on symptoms. ID consulted for further recommendation. Continue IV aztreonam for now.Echocardiogram shows an EF of 55-60% with moderate concentric left ventricular hypertrophy. No vegetation reported. Tumor lysis syndrome - Resolved. Allopurinol on hold Hyperkalemia now hypokalemia and hypocalcemia.-Continue to replace. Monitor closely. LUCA/hypernatremia- creatinine trending down, good urine output. Continue half normal saline due to hypernatremia. Monitor BMPs every 6 hours. Cautioned to not overcorrect quickly sodium levels. Encourage p.o. hydration (250ml water q4 -6hrs while awake). Nephrology following, appreciate recs. Pt has been started on diuril. Monitor Cr closely. Metabolic acidosis - improved Pancytopenia - worsening, requiring additional transfusion. Transfusion and G- CSF per oncology. Pt did receive one unit of platelet overnight per heme/onc recs Burkitt's lymphoma receiving chemo. Management per hematology History of prostate cancer status post XRT Diarrhea - seems to have improved, monitor. Oral thrush nystatin swish Scrotal edema/ LE edema.Will give lasix 20 mg IV one time dose. Monitor UOP. , monitor closley kidney function. Scrotal small tears noted, pt having pain with urination due to urine touching those open tears and burning. I spoke w Dr. Duron and she doesn't recommend placing a jensen as he is at high risk for bleeding due to his low plt count and also high risk for infection due to his neutropenia.Desitin cream and lidocaine jelly to be applied. Keep pt dry as much as possible. Place a condom catheter, will do but at this time, edema is too much and this cannot be done. Nystatin powder also ordered Discharge Planning Continue to replace electrolytes. Monitor sodium levels closely. Transfuse per heme/onc recs. CM assisting with DC planning as family wishes to pursue care in [place] has a plane ticket for 09/22/17 Problem Qualifiers (1) Anemia: Qualified Codes: D64.9 - Anemia, unspecified (2) Back pain: Qualified Codes: M54.9 - Dorsalgia, unspecified (3) Hearing loss: Qualified Codes: H91.92 - Unspecified hearing loss, left ear (4) Leukocytosis: Qualified Codes: D72.829 - Elevated white blood cell count, unspecified Adelaide Grande MD September 13, 2017 11:12
[2017-09-13] MEDS ORDERED: POTASSIUM BICARBONATE 25 MEQ EFFERVESCENT TAB PO ONE (11:15)
[2017-09-13] MEDS ORDERED: FUROSEMIDE 20 MG/2 ML VIAL IV PUSH ONE (11:35)
--- NOTE | 2017-09-13 11:47 | PD.ONC.PN ---
Subjective Subjective Remarks Afebrile overnight Pt resting in bed with visitors present States he was sitting up in the chair for quite some time this morning No acute complaints Anxious to begin working with physical therapy to get stronger Objective Data Date Time Temp Pulse Resp B/P (MAP) Pulse Ox O2 Delivery O2 Flow Rate FiO2 09/13/17 11:19 99 Nasal Cannula 2.00 09/13/17 08:18 99 Nasal Cannula 2.00 09/13/17 08:18 98.1 98 20 159/80 (106) 99 09/13/17 05:11 Nasal Cannula 2.00 09/13/17 05:11 98.0 84 18 166/88 (114) 96 09/13/17 04:00 74 09/13/17 01:53 97.9 91 18 161/81 97 09/13/17 01:41 97.9 86 19 154/79 96 09/13/17 00:00 74 09/12/17 23:45 98.2 87 19 161/81 96 09/12/17 23:00 95 Nasal Cannula 3.00 09/12/17 23:00 95 Nasal Cannula 3.00 09/12/17 22:05 98.2 89 147/71 98 09/12/17 21:46 98.0 87 20 151/76 97 09/12/17 20:45 97 Nasal Cannula 2.00 09/12/17 20:45 98.1 90 19 163/83 (109) 97 09/12/17 20:00 92 09/12/17 16:00 97 Nasal Cannula 2.00 09/12/17 16:00 97 Nasal Cannula 2.00 09/12/17 16:00 98.5 85 20 156/77 (103) 97 09/12/17 13:00 95 Nasal Cannula 2.00 09/13/17 09/13/17 09/13/17 07:00 15:00 23:00 Intake Total 1312 ml Output Total 1000 ml Balance 312 ml Result Diagram: 09/13/17 0640 09/13/17 0115 Laboratory Results Laboratory Tests Test 09/12/17 12:20 09/12/17 18:50 09/13/17 01:15 09/13/17 06:40 Platelet Count 14 TH/MM3 9 TH/MM3 16 TH/MM3 Blood Urea Nitrogen 50 MG/DL 51 MG/DL 49 MG/DL Creatinine 1.19 MG/DL 1.26 MG/DL 1.13 MG/DL Random Glucose 185 MG/DL 202 MG/DL 163 MG/DL Total Protein 4.5 GM/DL 4.7 GM/DL 4.4 GM/DL Calcium Level 6.1 MG/DL 6.5 MG/DL 6.3 MG/DL Sodium Level 148 MEQ/L 150 MEQ/L 152 MEQ/L Potassium Level 3.1 MEQ/L 3.2 MEQ/L 3.4 MEQ/L Chloride Level 113 MEQ/L 115 MEQ/L 116 MEQ/L Carbon Dioxide Level 26.9 MEQ/L 27.9 MEQ/L 29.2 MEQ/L Anion Gap 8 MEQ/L 7 MEQ/L 7 MEQ/L Estimat Glomerular Filtration Rate 60 ML/MIN 56 ML/MIN 64 ML/MIN Protein Corrected Calcium 7.3 MG/DL 7.7 MG/DL 7.6 MG/DL Random Vancomycin Level 14.1 COMMENT 21.7 COMMENT White Blood Count 0.1 TH/MM3 0.1 TH/MM3 Red Blood Count 2.30 MIL/MM3 2.47 MIL/MM3 Hemoglobin 7.1 GM/DL 7.5 GM/DL Hematocrit 19.9 % 21.2 % Mean Corpuscular Volume 86.6 FL 85.8 FL Mean Corpuscular Hemoglobin 30.8 PG 30.5 PG Mean Corpuscular Hemoglobin Concent 35.6 % 35.5 % Red Cell Distribution Width 14.3 % 13.8 % Mean Platelet Volume 7.1 FL 6.7 FL Albumin 2.1 GM/DL 2.1 GM/DL Alkaline Phosphatase 86 U/L 74 U/L Aspartate Amino Transf (AST/SGOT) 32 U/L 27 U/L Alanine Aminotransferase (ALT/SGPT) 94 U/L 79 U/L Total Bilirubin 1.1 MG/DL 1.4 MG/DL CBC Comment AUTO DIFF Differential Total Cells Counted 3 Lymphocytes % 100 % Neutrophils # (Manual) 0.0 TH/MM3 Differential Comment FINAL DIFF MANUAL Platelet Estimate RARE Platelet Morphology Comment NORMAL Uric Acid 0.6 MG/DL Magnesium Level 2.0 MG/DL Lactate Dehydrogenase 995 U/L Administered Medications Medications (Trade) Dose Ordered Sig/Robert Route PRN Reason Start Time Stop Time Status Last Admin Dose Admin Sodium Chloride (NS Flush) 2 ml UNSCH PRN IV FLUSH FLUSH AFTER USING IV ACCESS 08/29/17 15:45 09/08/17 23:42 Sodium Chloride (NS Flush) 2 ml BID IV FLUSH 08/29/17 21:00 09/13/17 11:00 Pantoprazole Sodium (Protonix Inj) 40 mg DAILY IV PUSH 08/30/17 09:00 09/13/17 11:00 Ondansetron HCl (Zofran Inj) 4 mg Q6H PRN IV PUSH NAUSEA OR VOMITING 08/29/17 16:00 09/09/17 10:08 Albuterol/ Ipratropium (Duoneb Neb) 1 ampule Q2HR NEB PRN INH WHEEZING 08/29/17 16:00 09/04/17 23:32 Chlorhexidine Gluconate (Chlorhexidine 2% Cloth) Taper DAILY@04 TOP 08/30/17 04:00 08/26/18 03:59 09/13/17 05:13 Senna/Docusate Sodium (Madina-Colace) 1 tab BID PO 08/29/17 21:00 09/13/17 11:04 Albuterol Sulfate (Proair Hfa Inh) 2 puff Q6H PRN INH SHORTNESS OF BREATH 08/29/17 18:00 09/13/17 11:05 Amlodipine Besylate (Norvasc) 10 mg DAILY PO 08/30/17 09:00 Future Hold 09/05/17 10:12 Budesonide/ Formoterol Fumarate (Symbicort 160-4.5 Mcg Inh) 2 puff BID INH 08/29/17 21:00 09/13/17 11:05 Ramipril (Altace) 10 mg DAILY PO 08/30/17 14:00 Future Hold 09/05/17 10:12 Morphine Sulfate (Morphine Inj) 2 mg Q4H PRN IV PUSH Pain 3 to 6 09/01/17 16:00 09/12/17 09:21 Morphine Sulfate (Morphine Inj) 4 mg Q4H PRN IV PUSH Pain 7 to 10 09/01/17 16:00 09/11/17 00:35 Sodium Chloride (NS Flush) DAILY IVF 09/05/17 09:00 09/13/17 11:02 Heparin Sodium (Porcine) (Heparin Central Flush) DAILY IV FLUSH 09/05/17 09:00 09/12/17 09:19 Sodium Chloride (NS Flush) UNSCH PRN IVF SEE PROTOCOL 09/04/17 16:00 09/10/17 21:58 Sodium Chloride (NS Flush) UNSCH PRN IVF SEE PROTOCOL 09/04/17 16:00 09/10/17 21:59 Norepinephrine Bitartrate 250 ml @ 7.5 mls/hr TITRATE PRN IV Blood pressure management 09/06/17 10:15 09/08/17 05:40 Aztreonam 1000 mg/ Sodium Chloride 100 ml @ 200 mls/hr Q8H IV 09/06/17 12:00 09/13/17 06:30 Nystatin (Mycostatin Liq) 5 ml QID SWISH-SWAL 09/09/17 13:00 09/13/17 11:02 Filgrastim 480 mcg/Dextrose 51.6 ml @ 100 mls/hr DAILY@14 IV 09/11/17 21:00 09/12/17 13:43 Chlorothiazide (Diuril) 250 mg BID@18 PO 09/11/17 20:00 09/13/17 11:04 Zinc Oxide (Desitin 40% Oint) 1 applic UNSCH PRN TOPICAL DIAPER RASH 09/12/17 09:30 09/12/17 10:26 Nystatin (Mycostatin Powder) 1 applic Q8HR TOPICAL 09/12/17 09:30 09/13/17 06:30 Sodium Chloride 250 ml @ 15 mls/hr ONCE ONCE IV 09/13/17 06:00 09/13/17 22:39 09/13/17 05:14 Potassium Chloride (KCl) 40 meq Q12HR PO 09/12/17 21:00 09/13/17 11:03 Fluconazole (Diflucan) 100 mg DAILY PO 09/13/17 09:00 09/13/17 10:59 Lidocaine HCl (Xylocaine 2% Jelly) 1 applic ONCE TOPICAL 09/12/17 20:00 09/15/17 19:59 09/12/17 20:51 Dextrose 1,000 ml @ 42 mls/hr [id number] IV 09/13/17 09:00 09/13/17 10:58 Albumin Human 50 ml @ 60 mls/hr Q12H IV 09/13/17 09:00 09/15/17 09:00 09/13/17 10:59 Calcium Carbonate (Oscal) 1,000 mg BID PO 09/13/17 09:00 09/13/17 11:04 Objective Remarks GENERAL: Older male resting in bed asleep on approach. He awakens easily to verbal stimuli. SKIN: Warm and dry. HEAD: Normocephalic. Somewhat hard of hearing EYES: No injection or drainage. NECK: Supple, trachea midline. CARDIOVASCULAR: Regular rate and rhythm without murmurs. RESPIRATORY: Clear anteriorly. Few scattered rales in the bases. GASTROINTESTINAL: Abdomen soft, non-tender, nondistended. EXTREMITIES: No cyanosis. 3+ edema to bilateral lower extremities MUSCULOSKELETAL: Generalized weakness. NEUROLOGICAL: No obvious focal deficit. Awake, alert, and oriented x3. Assessment/Plan Problem List: (1) B-cell lymphoma ICD Codes: C85.10 - Unspecified B-cell lymphoma, unspecified site Status: Acute Plan: 09/13/17: Continue G-CSF support Discussed w/ oncologist in [facility]'s home town coordination of treatment when he leaves here. He has flight schedule 09/22/17. agreed to assume care, plan to fax records, appt to be made for the Sunday after his return home. 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 ++ Burkitts lymphoma. ++also has bone pain, back pain, elevated LDH, as well as the sweats that suggests a more systemic manifestation of bone marrow disorder. ++ Nucleated red cells seen on peripheral smear. no acute blasts. 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 09/04: PICC line placement today, start R-EPOCH, give IT MTX. 09/05: Rituxan infusion complete. patient in TLS. transferred to ICU. plastics plater consulted. 09/06: start EPOCH, window closing as patient is now leukopenic. give blood and platelets. 09/07: give D2 EPOCH. give 1 unit pRBC, check repeat H/H. 09/08: give D3 EPOCH. 1 unit pRBC, 1 unit platelets. 09/09: D4 EPOCH, 2 units platelets. 09/10: D5--finish 4th bag of EPOCH, give Cytoxan this evening. (2) Tumor lysis syndrome ICD Codes: E88.3 - Tumor lysis syndrome Plan: Continue hydration, replace electrolytes. Nephrology following. Magnesium normal. Calcium trending up. Still hypernatremic. Replace K orally. Renal function improving. (3) Sepsis ICD Codes: A41.9 - Sepsis, unspecified organism Plan: Abx support. Off steroids. Monitor for fever. Assessment 72y/o male with anemia + thrombocytopenia. history of prostate cancer, status post prostatectomy, coronary artery disease, s/p stent placement. 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 Plan 1. Transfuse packed red blood cells for hemoglobin less than 7.5 2. Continue G-CSF support 3. Potassium replaced by attending 4. Monitor CBC 5. Start physical therapy today to increase strength Attending Statement The exam, history, and the medical decision-making described in the above note were completed with the assistance of the mid-level provider. I reviewed and agree with the findings presented. I attest that I had a [id number] encounter with the patient on the same day, and personally performed and documented my assessment and findings in the medical record. Pt seen and examined, blood counts stable transfused last night. Discussed case with Dr. Grande, nephrology assessing electrolyte abnormalities and correction. Still swollen but renal function improving, hyponatremia not responsive to diuril. Continue GCSF, abx continue transition to levoquin per ID. Plan on Omaya pending recovery of counts. Tiara Gonzalez September 13, 2017 11:47 Shahla Duorn MD September 13, 2017 14:39
[2017-09-13] MEDS: FILGRASTIM INJ 480 MCG in DEXTROSE 5% IN WATER INJ 50 ML IV SCH ×2 (18:06)
[2017-09-13] MEDS: LIDOCAINE 2% JELLY 30 ML TUBE TOPICAL SCH (18:06)
[2017-09-13] MEDS: ZINC OXIDE 40% OINT 60 GM TUBE TOPICAL PRN (18:07)
[2017-09-13] MEDS: LORazepam 0.5 MG TAB PO PRN (21:58)
[2017-09-14] VITALS (19 sets, daily range): BP systolic 93–150; BP diastolic 67–84; PULSE 82–148; RESP 14–24; TEMP 97.5–99; O2SAT 94–100
[2017-09-14] MEDS: MORPHINE SULFATE 2 MG/ML SYRINGE IV PUSH PRN (00:54)
[2017-09-14] MEDS: CHLORHEXIDINE GLUCONATE 2 % 1 PACK (2 CLOTHS) TOP SCH (04:00)
[2017-09-14] MEDS: AZTREONAM INJ 1,000 MG in SODIUM CHLORIDE 0.9% INJ 100 ML IV SCH ×3 (04:46→21:47)
[2017-09-14] MEDS: NYSTATIN 100,000 U/GM PWD 15 GM BTL TOPICAL SCH ×3 (04:49→21:58)
[2017-09-14 06:18] LABS: MEAN CELL VOLUME 86.8 FL (80.0-100.0); MEAN CORPUSCULAR HEMOGLOBIN 30.6 PG (27.0-34.0); MEAN CORPUSCULAR HGB CONC 35.2 % (32.0-36.0); RED BLOOD COUNT 1.93 MIL/MM3 (4.50-5.90); RED CELL DISTRIBUTION WIDTH 13.9 % (11.6-17.2); WHITE BLOOD COUNT 0.1 TH/MM3 (4.0-11.0)
[2017-09-14 06:25] LABS: HEMATOCRIT 16.8 % (39.0-51.0); HEMOGLOBIN 5.9 GM/DL (13.0-17.0)
[2017-09-14 06:26] LABS: PLATELET COUNT 3 TH/MM3 (150-450)
[2017-09-14 07:09] LABS: BICARBONATE 29.9 MEQ/L (21.0-32.0); CALCIUM 6.3 MG/DL (8.5-10.1); CREATININE 1.06 MG/DL (0.60-1.30); RANDOM VANCOMYCIN 12.6 COMMENT
[2017-09-14 07:41] LABS: CALCIUM-PROTEIN CORRECTED 7.7 MG/DL (8.5-10.1); TOTAL PROTEIN 4.3 GM/DL (6.4-8.2)
--- NOTE | 2017-09-14 07:50 | HHI.PR ---
Subjective Remarks Very tired today says is worsening. Platelets and hemoglobin low, plan to transfuse. Still with significant edema. No fever or chills. No nausea vomiting no diarrhea constipation. Not eating much. Potassium supplement and martinez his mouth. Objective Vitals Vital Signs Date Time Temp Pulse Resp B/P (MAP) Pulse Ox O2 Delivery O2 Flow Rate FiO2 09/14/17 05:04 97 Room Air 2.00 09/14/17 04:37 98.3 89 18 135/76 (95) 97 09/14/17 00:36 97.7 91 18 138/75 (96) 97 09/14/17 00:17 82 09/13/17 21:55 98.8 91 18 145/96 (112) 98 09/13/17 20:34 98 Nasal Cannula 2.00 09/13/17 20:09 88 09/13/17 18:00 98.4 09/13/17 16:35 98.4 87 18 138/76 (96) 97 09/13/17 15:00 97 Room Air 2.00 09/13/17 12:00 Nasal Cannula 2.00 09/13/17 11:46 98.7 95 24 162/80 (107) 98 09/13/17 11:19 99 Nasal Cannula 2.00 09/13/17 08:18 99 Nasal Cannula 2.00 09/13/17 08:18 98.1 98 20 159/80 (106) 99 I/O 09/13/17 09/13/17 09/13/17 09/14/17 09/14/17 09/14/17 07:00 15:00 23:00 07:00 15:00 23:00 Intake Total 1312 ml 1000 ml 1053 ml 50 ml Output Total 1000 ml 1375 ml Balance 312 ml 1000 ml -322 ml 50 ml Intake Oral 240 ml 953 ml IV Total 444 ml 1000 ml 100 ml 50 ml Packed Cells 400 ml Platelets 228 ml Output Urine Total 1000 ml 1375 ml # Voids 1 # Bowel Movements 1 Result Diagram: 09/14/17 0452 09/14/17 0452 Imaging Last Impressions Chest X-Ray 09/05/17 0000 Signed Impressions: Service Date/Time: Tuesday, September 05, 2017 01:50 - CONCLUSION: 1. Right PICC line in superior vena cava. Subsegmental basilar airspace disease. No effusion or pneumothorax. Cory Camarena MD PICC Line Insertion 09/04/17 0600 Signed Impressions: Service Date/Time: Monday, September 04, 2017 15:12 - CONCLUSION: 1. Uncomplicated central venous Power PICC line placement. 2. The PICC line can be used immediately. Santy Burciaga Jr., MD Lumbar Puncture Fluoroscopy 09/04/17 0000 Signed Impressions: Service Date/Time: Monday, September 04, 2017 15:12 - CONCLUSION: Uncomplicated fluoroscopically guided lumbar puncture with pressures as above. Intrathecal methotrexate was administered. Santy Burciaga Jr., MD Chest CT 09/01/17 0000 Signed Impressions: Service Date/Time: Friday, September 01, 2017 16:48 - CONCLUSION: 1. No definite evidence for metastatic disease to the thorax. 2. 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 3. Scattered atelectasis and scarring in the lungs. 4. Moderate coronary calcifications. Cory Camarena MD Abdomen/Pelvis CT 09/01/17 0000 Signed Impressions: Service Date/Time: Friday, September 01, 2017 16:48 - CONCLUSION: 1. Post surgical changes with findings of cholecystectomy and prostatectomy. 2. Scattered diverticular disease of the colon without diverticulitis. 3. Lobulated cyst in the upper poles of both kidneys with some calcification on the left. 4. Retroperitoneal fat herniates through the left hemidiaphragm into the posterior left lung base. 5. No acute intraperitoneal or pelvic process to explain current clinical symptoms Gavin Lynn MD Bone Biopsy CT 08/30/17 1535 Signed Impressions: Service Date/Time: August 16:19 - CONCLUSION: 1. Uncomplicated CT guided bone marrow aspirate. 2. Uncomplicated CT guided bone marrow biopsy. Srikanth Ambrosio MD Thoracic Spine CT 08/30/17 0100 Signed Impressions: Service Date/Time: August 01:37 - CONCLUSION: 1. No fracture, subluxation or other acute abnormality of the thoracic spine. 2. Scoliosis and mild multifocal degenerative changes as above. 3. Complex appearing cystic structures of the upper poles of both kidneys. Comparison to any previous outside facility studies is recommended to confirm chronicity and stability. Contrast enhanced study of the abdomen suggested if felt clinically indicated, preferably MRI if there are no contraindications. Tim Jones MD Lumbar Spine CT 08/30/17 0100 Signed Impressions: Service Date/Time: August 01:37 - CONCLUSION: 1. No acute fracture or acute subluxation of the lumbar spine. 2. 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 3. Mild spinal and bilateral foraminal stenosis at L4/L5. 4. Mild right and moderate left foraminal stenosis at L5/S1. 5. Benign vertebral body hemangioma of L1. No concerning lumbar spine bone lesion. Tim Jones MD Head CT 08/30/17 0100 Signed Impressions: Service Date/Time: August 01:37 - CONCLUSION: Small frontal maddy-falcine subdural blood is unchanged. Tim Jones MD Carotid Artery Ultrasound 08/30/17 0000 Signed Impressions: Service Date/Time: August 07:52 - CONCLUSION: 1. Diffuse calcified plaque throughout carotid arteries bilaterally with resultant moderate, 50-69%%, stenosis of the internal carotid arteries bilaterally and likely moderate stenosis of the left common carotid artery. 2. Antegrade vertebral artery flow bilaterally. Lopez Taylor MD Brain MRI 08/30/17 0000 Signed Impressions: Service Date/Time: August 09:27 - CONCLUSION: 1. Right frontal parafalcine abnormality on CT exam corresponds to a small meningioma. No definitive intra-or extra-axial hemorrhage. Lopez Taylor MD Objective Remarks General appearance: Very pleasant elderly gentleman, awake, weak, ill-appearing Cardiovascular: Regular heart sounds, no murmurs Respiratory: Clear bilateral, good air entry, no wheezes Abdomen: soft, non-tender, no rebound. Extremities: warm and well perfused, 3+ pitting edema : scrotal edema Procedures Bone marrow biopsy 08/30/2017. Line: PICC A/P Problem List: (1) Anemia ICD Code: D64.9 - Anemia, unspecified Status: Acute (2) Thrombocytopenia ICD Code: D69.6 - Thrombocytopenia, unspecified Status: Acute (3) GI bleed ICD Code: K92.2 - Gastrointestinal hemorrhage, unspecified Status: Acute (4) Back pain ICD Code: M54.9 - Dorsalgia, unspecified Status: Acute (5) History of IN (myocardial infarction) ICD Code: I25.2 - Old myocardial infarction (6) B-cell lymphoma ICD Code: C85.10 - Unspecified B-cell lymphoma, unspecified site Status: Acute (7) Abnormal head CT ICD Code: R93.0 - Abnormal findings on diagnostic imaging of skull and head, not elsewhere classified (8) Hearing loss ICD Code: H91.90 - Unspecified hearing loss, unspecified ear (9) Leukocytosis ICD Code: D72.829 - Elevated white blood cell count, unspecified Assessment and Plan 72y/o male with anemia + thrombocytopenia. History of prostate cancer, status post prostatectomy, coronary artery disease, s/p stent placement. 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 Septic shock - resolved E coli and strep viridans bacteremia - repeat blood cx are negative to date. Etiology of E coli in blood - No evidence of a UTI based on symptoms. ID consulted for further recommendation. Continue IV aztreonam for now.Echocardiogram shows an EF of 55-60% with moderate concentric left ventricular hypertrophy. No vegetation reported. Tumor lysis syndrome - Resolved. Allopurinol on hold Hyperkalemia now hypokalemia and hypocalcemia.-Continue to replace. Monitor closely. LUCA/hypernatremia- creatinine trending down, good urine output. Continue half normal saline due to hypernatremia. Monitor BMPs every 6 hours. Cautioned to not overcorrect quickly sodium levels. Encourage p.o. hydration (250ml water q4 -6hrs while awake). Nephrology following, appreciate recs. Pt has been started on diuril. Monitor Cr closely. Metabolic acidosis - improved Pancytopenia - worsening, requiring additional transfusion. Transfusion and G- CSF per oncology. Pt did receive one unit of platelet overnight per heme/onc recs PlT at 3, HGB drop to 5.9 today 5/4. Transfuse. Transfuse 2 units packed red blood cells today for hemoglobin of 5.9 Transfuse 1 unit platelets for platelet count 3000 Repeat CBC at 8 PM Transfuse to keep platelets greater than 10,000, hemoglobin greater than 7.5 Continue Neupogen Burkitt's lymphoma receiving chemo. Management per hematology History of prostate cancer status post XRT Diarrhea - seems to have improved, monitor. Oral thrush nystatin swish Scrotal edema/ LE edema. Received lasix 20 mg IV one time dose and albumin IV. Monitor UOP. , monitor closley kidney function. Scrotal small tears noted, pt having pain with urination due to urine touching those open tears and burning. Dr. Duron doesn't recommend placing a jensen as he is at high risk for bleeding due to his low plt count and also high risk for infection due to his neutropenia. Desitin cream and lidocaine jelly to be applied. Keep pt dry as much as possible. Place a condom catheter, will do but at this time, edema is too much and this cannot be done. Nystatin powder also ordered Discharge Planning Continue to replace electrolytes. Monitor sodium levels closely. Transfuse per heme/onc recs. CM assisting with DC planning as family wishes to pursue care in [place] has a plane ticket for 09/22/17 Transfuse with worsening HGB and PLT 09/14 Problem Qualifiers (1) Anemia: Qualified Codes: D64.9 - Anemia, unspecified (2) Back pain: Qualified Codes: M54.9 - Dorsalgia, unspecified (3) Hearing loss: Qualified Codes: H91.92 - Unspecified hearing loss, left ear (4) Leukocytosis: Qualified Codes: D72.829 - Elevated white blood cell count, unspecified Adelaide Grande MD September 14, 2017 07:50
[2017-09-14 08:02] LABS: LYMPHOCYTES 90 % (9-44); POLYS (SEG NEUTROPHILS) 10 % (16-70)
[2017-09-14] MEDS: NYSTATIN SUSP 500,000 U/5 ML CUP SWISH-SWAL SCH ×8 (09:00→21:56)
[2017-09-14] MEDS: BUDESONIDE-FORMOTEROL 160/4.5 MCG INHALER INH SCH ×2 (09:00→22:03)
--- NOTE | 2017-09-14 09:51 | HHI.NPPN ---
Subjective General Problems: Edema Renal Failure: Acute History of Present Illness Patient is a 72 year old male with a past medical history of prostate cancer, asthma, gastroesophageal reflux, Muñoz's esophagus,hypertension, new anemia, new thrombocytopenia, rotator cuff injury, and back pain. 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 Patient was receiving Rituxan last night and developed a reaction with low grade temperature, pain, and tremor. Plan to transfer patient to intensive care unit as patient is at risk for fluid overload with blood transfusions and acute kidney injury. Nephrology is consulted for acute kidney injury with creatinine of 2.44 with a admission creatinine of 0.99. HGB is low at 7.2, Plt of 27, NA 148, CO2 14.5. Patient is resting comfortably now with his only complaint is that is dizzy with ambulation. Additional Remarks Resting comfortably in bed. Edema is slightly improved. No shortness of breath. (Janet Ribeiro) Review of Systems Respiratory Respiratory Remarks Denies any SOB (Janet Ribeiro) Cardiovascular Cardiac: Edema Cardiac Remarks Denies any CP (Janet Ribeiro) Gastrointestinal GI Remarks Denies any abdominal pain (Jante Ribeiro) Objective Data Data Vital Signs Date Time Temp Pulse Resp B/P (MAP) Pulse Ox O2 Delivery O2 Flow Rate FiO2 09/14/17 09:01 98.3 99 118/76 (90) 95 09/14/17 05:04 97 Room Air 2.00 09/14/17 04:37 98.3 89 18 135/76 (95) 97 09/14/17 00:36 97.7 91 18 138/75 (96) 97 09/14/17 00:17 82 09/13/17 21:55 98.8 91 18 145/96 (112) 98 09/13/17 20:34 98 Nasal Cannula 2.00 09/13/17 20:09 88 09/13/17 18:00 98.4 09/13/17 16:35 98.4 87 18 138/76 (96) 97 09/13/17 15:00 97 Room Air 2.00 09/13/17 12:00 Nasal Cannula 2.00 09/13/17 11:46 98.7 95 24 162/80 (107) 98 09/13/17 11:19 99 Nasal Cannula 2.00 (Janet Ribeiro) -: 09/14/17 0452 09/14/17 0452 Imaging Last Impressions Chest X-Ray 09/05/17 0000 Signed Impressions: Service Date/Time: Tuesday, September 05, 2017 01:50 - CONCLUSION: 1. Right PICC line in superior vena cava. Subsegmental basilar airspace disease. No effusion or pneumothorax. Cory Camarena MD PICC Line Insertion 09/04/17 0600 Signed Impressions: Service Date/Time: Monday, September 04, 2017 15:12 - CONCLUSION: 1. Uncomplicated central venous Power PICC line placement. 2. The PICC line can be used immediately. Santy Burciaga Jr., MD Lumbar Puncture Fluoroscopy 09/04/17 0000 Signed Impressions: Service Date/Time: Monday, September 04, 2017 15:12 - CONCLUSION: Uncomplicated fluoroscopically guided lumbar puncture with pressures as above. Intrathecal methotrexate was administered. Santy Burciaga Jr., MD Chest CT 09/01/17 0000 Signed Impressions: Service Date/Time: Friday, September 01, 2017 16:48 - CONCLUSION: 1. No definite evidence for metastatic disease to the thorax. 2. 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 3. Scattered atelectasis and scarring in the lungs. 4. Moderate coronary calcifications. Cory Camarena MD Abdomen/Pelvis CT 09/01/17 0000 Signed Impressions: Service Date/Time: Friday, September 01, 2017 16:48 - CONCLUSION: 1. Post surgical changes with findings of cholecystectomy and prostatectomy. 2. Scattered diverticular disease of the colon without diverticulitis. 3. Lobulated cyst in the upper poles of both kidneys with some calcification on the left. 4. Retroperitoneal fat herniates through the left hemidiaphragm into the posterior left lung base. 5. No acute intraperitoneal or pelvic process to explain current clinical symptoms Gavin Lynn MD Bone Biopsy CT 08/30/17 1535 Signed Impressions: Service Date/Time: August 16:19 - CONCLUSION: 1. Uncomplicated CT guided bone marrow aspirate. 2. Uncomplicated CT guided bone marrow biopsy. Srikanth Ambrosio MD Thoracic Spine CT 08/30/17 0100 Signed Impressions: Service Date/Time: August 01:37 - CONCLUSION: 1. No fracture, subluxation or other acute abnormality of the thoracic spine. 2. Scoliosis and mild multifocal degenerative changes as above. 3. Complex appearing cystic structures of the upper poles of both kidneys. Comparison to any previous outside facility studies is recommended to confirm chronicity and stability. Contrast enhanced study of the abdomen suggested if felt clinically indicated, preferably MRI if there are no contraindications. Tim Jones MD Lumbar Spine CT 08/30/1799 Signed Impressions: Service Date/Time: August 01:37 - CONCLUSION: 1. No acute fracture or acute subluxation of the lumbar spine. 2. 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 3. Mild spinal and bilateral foraminal stenosis at L4/L5. 4. Mild right and moderate left foraminal stenosis at L5/S1. 5. Benign vertebral body hemangioma of L1. No concerning lumbar spine bone lesion. Tim Jones MD Head CT 08/30/1799 Signed Impressions: Service Date/Time: August 01:37 - CONCLUSION: Small frontal maddy-falcine subdural blood is unchanged. Tim Jones MD Carotid Artery Ultrasound 08/30/17 Signed Impressions: Service Date/Time: August 07:52 - CONCLUSION: 1. Diffuse calcified plaque throughout carotid arteries bilaterally with resultant moderate, 50-69%%, stenosis of the internal carotid arteries bilaterally and likely moderate stenosis of the left common carotid artery. 2. Antegrade vertebral artery flow bilaterally. Lopez Taylor MD Brain MRI 08/30/17 Signed Impressions: Service Date/Time: August 09:27 - CONCLUSION: 1. Right frontal parafalcine abnormality on CT exam corresponds to a small meningioma. No definitive intra-or extra-axial hemorrhage. Lopez Taylor MD (Janet Ribeiro) Physical Exam General Appearance: No Acute Distress, Comfortable, Anxious (Janet Ribeiro) Throat Throat Exam: Oral Mucosa [place] & Moist (Janet Ribeiro) Pulmonary Resp Exam: Breath Sounds Equal, No Distress (Janet Ribeiro) Cardiology CV Exam: Regular, Normal Sinus Rhythm (Janet Ribeiro) Gastrointestinal/Abdomen GI Exam: Soft, Non-Tender, Distended (Janet Ribeiro) Genitourinary Exam: Flank Non-Tender (Janet Ribeiro) Integumentary Skin Exam: Clear, Warm (Janet Ribeiro) Extremeties Extremities Exam: Moderate Edema, Dependent Edema (Janet Ribeiro) Neurologic Neuro Exam: Alert, Awake, Oriented (Janet Ribeiro) Psychiatric Psych Exam: Appropriate Responses (Janet Ribeiro) Assessment/Plan Electrolyte Assessment: Hypernatremia, Hypocalcemia, Hypokalemia Problem List: (1) Acute kidney injury ICD Codes: N17.9 - Acute kidney failure, unspecified Plan: Acute kidney injury with creatinine of 2.44 when consulted. Acute kidney injury most likely related to tumor lysis. On admission creatinine of 0.99. CT of abdomen on the with kidney with normal in size and shape. There is no mass, stone or hydronephrosis. Lobulated cysts in the upper poles of both kidneys with some benign-appearing calcification on the left Creatinine stable Plan Will monitor renal panel periodically Avoid nephrotoxins. Hypernatremia improving at 150 from 152 D5W at 45ml/min Continue Albumin every 12 hours to help shift fluid Encouraged to elevate legs throughout day Continue diuril for hypernatremia and swelling. Hypokalemia at 3.4 on scheduled potassium replacement. Will order extra today. Hypocalcemia at 7.7 continue oral replacement. (2) B-cell lymphoma ICD Codes: C85.10 - Unspecified B-cell lymphoma, unspecified site Status: Acute Plan: Oncology managing (3) Anemia ICD Codes: D64.9 - Anemia, unspecified Status: Acute Plan: Monitoring (Janet Ribeiro) Problem List: (1) Acute kidney injury ICD Codes: N17.9 - Acute kidney failure, unspecified Plan: Acute kidney injury with creatinine of 2.44 when consulted. Acute kidney injury most likely related to tumor lysis. On admission creatinine of 0.99. CT of abdomen on the with kidney with normal in size and shape. There is no mass, stone or hydronephrosis. Lobulated cysts in the upper poles of both kidneys with some benign-appearing calcification on the left Creatinine stable Plan Will monitor renal panel periodically Avoid nephrotoxins. Hypernatremia improving at 150 from 152 D5W at 45ml/min Continue Albumin every 12 hours to help shift fluid Encouraged to elevate legs throughout day Continue diuril for hypernatremia and swelling. Hypokalemia at 3.4 on scheduled potassium replacement. Will order extra today. Hypocalcemia at 7.7 continue oral replacement. Patient seen and examined, agree with above. Na. is slightly better, K was replaced. (2) B-cell lymphoma ICD Codes: C85.10 - Unspecified B-cell lymphoma, unspecified site Status: Acute Plan: Oncology managing (3) Anemia ICD Codes: D64.9 - Anemia, unspecified Status: Acute Plan: Monitoring (Demi Mendez MD) Problem Qualifiers (1) Anemia: Qualified Codes: D64.9 - Anemia, unspecified Janet Ribeiro September 14, 2017 09:51 Demi Mendez MD September 17, 2017 18:36
[2017-09-14] MEDS: ALBUMIN 25% INJ 50 ML IV SCH ×2 (10:14→21:50)
[2017-09-14] MEDS: CHLOROTHIAZIDE 250 MG TAB PO SCH ×2 (10:25→18:04)
[2017-09-14] MEDS: POTASSIUM CHLORIDE 10 MEQ CONTROLLED RELEASE TAB PO SCH ×2 (10:26→21:55)
[2017-09-14] MEDS: PANTOPRAZOLE SODIUM 40 MG VIAL IV PUSH SCH (10:27)
[2017-09-14] MEDS: SODIUM CHLORIDE 0.9% FLUSH 10 ML FLUSH IVF SCH (10:28)
[2017-09-14] MEDS: FLUCONAZOLE 100 MG TAB PO SCH (10:29)
[2017-09-14] MEDS: CALCIUM CARBONATE 1.25 GM (CA 500 MG) TAB PO SCH ×2 (10:29→21:55)
[2017-09-14] MEDS: DOCUSATE SODIUM 50 MG/SENNA 8.6 MG TAB PO SCH ×2 (10:29→21:56)
[2017-09-14] MEDS ORDERED: SODIUM CHLOR 0.9% 250 ML INJ 250 ML IV ONE ×2 (10:45→11:00)
[2017-09-14] MEDS ORDERED: VANCOMYCIN INJ 2,000 MG in SODIUM CHLORID 0.9% 500 ML INJ 500 ML IV ONE (11:00)
[2017-09-14] MEDS ORDERED: FUROSEMIDE 20 MG/2 ML VIAL IV PUSH ONE ×2 (11:00→17:30)
[2017-09-14] MEDS ORDERED: POTASSIUM BICARBONATE 25 MEQ EFFERVESCENT TAB PO ONE (12:00)
--- NOTE | 2017-09-14 13:27 | PD.ONC.PN ---
Subjective Subjective Remarks Afebrile Patient feeling down today Would like to know if he is going to make it through this Still with significant lower extremity edema and scrotal swelling Patient reports the potassium drink martinez his mouth Objective Data Date Time Temp Pulse Resp B/P (MAP) Pulse Ox O2 Delivery O2 Flow Rate FiO2 09/14/17 13:09 98.4 95 24 98 09/14/17 12:30 98.8 148 24 124/72 98 09/14/17 09:01 98.3 99 118/76 (90) 95 09/14/17 05:04 97 Room Air 2.00 09/14/17 04:37 98.3 89 18 135/76 (95) 97 09/14/17 00:36 97.7 91 18 138/75 (96) 97 09/14/17 00:17 82 09/13/17 21:55 98.8 91 18 145/96 (112) 98 09/13/17 20:34 98 Nasal Cannula 2.00 09/13/17 20:09 88 09/13/17 18:00 98.4 09/13/17 16:35 98.4 87 18 138/76 (96) 97 09/13/17 15:00 97 Room Air 2.00 09/14/17 09/14/17 09/14/17 07:00 15:00 23:00 Intake Total 590 ml Output Total 2250 ml 775 ml Balance -1660 ml -775 ml Result Diagram: 09/14/17 0452 09/14/17 0452 Laboratory Results Laboratory Tests Test 09/14/17 04:52 White Blood Count 0.1 TH/MM3 Red Blood Count 1.93 MIL/MM3 Hemoglobin 5.9 GM/DL Hematocrit 16.8 % Mean Corpuscular Volume 86.8 FL Mean Corpuscular Hemoglobin 30.6 PG Mean Corpuscular Hemoglobin Concent 35.2 % Red Cell Distribution Width 13.9 % Platelet Count 3 TH/MM3 Mean Platelet Volume 8.0 FL CBC Comment AUTO DIFF Differential Total Cells Counted 10 Neutrophils % (Manual) 10 % Lymphocytes % 90 % Neutrophils # (Manual) 0.0 TH/MM3 Differential Comment FINAL DIFF MANUAL Platelet Estimate RARE Platelet Morphology Comment NORMAL Blood Urea Nitrogen 42 MG/DL Creatinine 1.06 MG/DL Random Glucose 154 MG/DL Total Protein 4.3 GM/DL Calcium Level 6.3 MG/DL Sodium Level 150 MEQ/L Potassium Level 3.4 MEQ/L Chloride Level 113 MEQ/L Carbon Dioxide Level 29.9 MEQ/L Anion Gap 7 MEQ/L Estimat Glomerular Filtration Rate 68 ML/MIN Protein Corrected Calcium 7.7 MG/DL Random Vancomycin Level 12.6 COMMENT Administered Medications Medications (Trade) Dose Ordered Sig/Robert Route PRN Reason Start Time Stop Time Status Last Admin Dose Admin Sodium Chloride (NS Flush) 2 ml UNSCH PRN IV FLUSH FLUSH AFTER USING IV ACCESS 08/29/17 15:45 09/08/17 23:42 Sodium Chloride (NS Flush) 2 ml BID IV FLUSH 08/29/17 21:00 09/13/17 11:00 Pantoprazole Sodium (Protonix Inj) 40 mg DAILY IV PUSH 08/30/17 09:00 09/14/17 10:27 Ondansetron HCl (Zofran Inj) 4 mg Q6H PRN IV PUSH NAUSEA OR VOMITING 08/29/17 16:00 09/09/17 10:08 Albuterol/ Ipratropium (Duoneb Neb) 1 ampule Q2HR NEB PRN INH WHEEZING 08/29/17 16:00 09/04/17 23:32 Chlorhexidine Gluconate (Chlorhexidine 2% Cloth) Taper DAILY@04 TOP 08/30/17 04:00 08/26/18 03:59 09/13/17 05:13 Senna/Docusate Sodium (Mad[place]-Colace) 1 tab BID PO 08/29/17 21:00 09/14/17 10:29 Albuterol Sulfate (Proair Hfa Inh) 2 puff Q6H PRN INH SHORTNESS OF BREATH 08/29/17 18:00 09/13/17 11:05 Amlodipine Besylate (Norvasc) 10 mg DAILY PO 08/30/17 09:00 Future Hold 09/05/17 10:12 Budesonide/ Formoterol Fumarate (Symbicort 160-4.5 Mcg Inh) 2 puff BID INH 08/29/17 21:00 09/13/17 22:01 Ramipril (Altace) 10 mg DAILY PO 08/30/17 14:00 Future Hold 09/05/17 10:12 Morphine Sulfate (Morphine Inj) 2 mg Q4H PRN IV PUSH Pain 3 to 6 09/01/17 16:00 09/14/17 00:54 Morphine Sulfate (Morphine Inj) 4 mg Q4H PRN IV PUSH Pain 7 to 10 09/01/17 16:00 09/11/17 00:35 Sodium Chloride (NS Flush) DAILY IVF 09/05/17 09:00 09/14/17 10:28 Heparin Sodium (Porcine) (Heparin Central Flush) DAILY IV FLUSH 09/05/17 09:00 09/14/17 10:27 Sodium Chloride (NS Flush) UNSCH PRN IVF SEE PROTOCOL 09/04/17 16:00 09/10/17 21:58 Sodium Chloride (NS Flush) UNSCH PRN IVF SEE PROTOCOL 09/04/17 16:00 09/10/17 21:59 Norepinephrine Bitartrate 250 ml @ 7.5 mls/hr TITRATE PRN IV Blood pressure management 09/06/17 10:15 09/08/17 05:40 Aztreonam 1000 mg/ Sodium Chloride 100 ml @ 200 mls/hr Q8H IV 09/06/17 12:00 09/14/17 04:46 Nystatin (Mycostatin Liq) 5 ml QID SWISH-SWAL 09/09/17 13:00 09/13/17 21:58 Lidocaine HCl (Xylocaine 2% Viscous) 15 ml Q4H PRN SWISH-SPIT mouth pain 09/09/17 10:15 09/13/17 18:04 Filgrastim 480 mcg/Dextrose 51.6 ml @ 100 mls/hr DAILY@14 IV 09/11/17 21:00 09/13/17 18:06 Chlorothiazide (Diuril) 250 mg BID@18 PO 09/11/17 20:00 09/14/17 10:25 Zinc Oxide (Desitin 40% Oint) 1 applic UNSCH PRN TOPICAL DIAPER RASH 09/12/17 09:30 09/13/17 18:07 Nystatin (Mycostatin Powder) 1 applic Q8HR TOPICAL 09/12/17 09:30 09/14/17 04:49 Potassium Chloride (KCl) 40 meq Q12HR PO 09/12/17 21:00 09/14/17 10:26 Fluconazole (Diflucan) 100 mg DAILY PO 09/13/17 09:00 09/14/17 10:29 Lidocaine HCl (Xylocaine 2% Jelly) 1 applic ONCE TOPICAL 09/12/17 20:00 09/15/17 19:59 09/13/17 18:06 Dextrose 1,000 ml @ 42 mls/hr [id number] IV 09/13/17 09:00 09/13/17 10:58 Albumin Human 50 ml @ 60 mls/hr Q12H IV 09/13/17 09:00 09/15/17 09:00 09/14/17 10:14 Calcium Carbonate (Oscal) 1,000 mg BID PO 09/13/17 09:00 09/14/17 10:29 Lorazepam (Ativan) 0.5 mg Q6H PRN PO anxiety/ sleep 09/13/17 17:30 09/13/17 21:58 Objective Remarks GENERAL: Older male sitting up in chair at bedside. He appears uncomfortable SKIN: Warm and dry. HEAD: Normocephalic. Somewhat hard of hearing EYES: No injection or drainage. NECK: Supple, trachea midline. CARDIOVASCULAR: Regular rate and rhythm without murmurs. RESPIRATORY: Clear anteriorly. Few scattered rales in the bases. GASTROINTESTINAL: Abdomen soft, non-tender, nondistended. : Scrotal edema EXTREMITIES: No cyanosis. Significant swelling to bilateral lower extremities. Petechiae noted to lower extremities MUSCULOSKELETAL: Generalized weakness. NEUROLOGICAL: No obvious focal deficit. Awake, alert, and oriented x3. Assessment/Plan Problem List: (1) B-cell lymphoma ICD Codes: C85.10 - Unspecified B-cell lymphoma, unspecified site Status: Acute Plan: 09/13/17: Continue G-CSF support 09/14/17: Transfuse 2 units packed red blood cells, 1 unit platelets Discussed w/ oncologist in [facility]'s home town coordination of treatment when he leaves here. He has flight schedule 09/22/17. agreed to assume care, plan to fax records, appt to be made for the Sunday after his return home. 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 ++ Burkitts lymphoma. ++also has bone pain, back pain, elevated LDH, as well as the sweats that suggests a more systemic manifestation of bone marrow disorder. ++ Nucleated red cells seen on peripheral smear. no acute blasts. 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 09/04: PICC line placement today, start R-EPOCH, give IT MTX. 09/05: Rituxan infusion complete. patient in TLS. transferred to ICU. liquid floor and wall applier consulted. 09/06: start EPOCH, window closing as patient is now leukopenic. give blood and platelets. 09/07: give D2 EPOCH. give 1 unit pRBC, check repeat H/H. 09/08: give D3 EPOCH. 1 unit pRBC, 1 unit platelets. 09/09: D4 EPOCH, 2 units platelets. 09/10: D5--finish 4th bag of EPOCH, give Cytoxan this evening. (2) Tumor lysis syndrome ICD Codes: E88.3 - Tumor lysis syndrome Plan: --Status post rasburicase --Creatinine now normalized --Nephrology following --Patient still with significant amount of generalized edema (3) Sepsis ICD Codes: A41.9 - Sepsis, unspecified organism Plan: Abx support. Off steroids. Monitor for fever. Assessment 72y/o male with anemia + thrombocytopenia. history of prostate cancer, status post prostatectomy, coronary artery disease, s/p stent placement. 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 Plan 1. Transfuse 2 units packed red blood cells today for hemoglobin of 5.9 2. Transfuse 1 unit platelets for platelet count 3000 3. CBC at 8 PM 4. Transfuse to keep platelets greater than 10,000, hemoglobin greater than 7.5 5. Continue Neupogen 6. Supportive care Attending Statement The exam, history, and the medical decision-making described in the above note were completed with the assistance of the mid-level provider. I reviewed and agree with the findings presented. I attest that I had a [id number] encounter with the patient on the same day, and personally performed and documented my assessment and findings in the medical record. Still pancytopenic, hypernatremic, renal function improve, continue to have electrolyte abnormality. Scrotal swelling pose as risk for skin breakdown, after consideration risk benefit jensen, insert jensen catheter with platelets running. Transfused PRBC and platelets today, noted petechiae BL LE, still with significant edema. Discussed at length with family and patient pancytopenia, goal to support until WBC recovery. Case management to consult, although pt wish to get on the plane on 09/22, if he is not ready, will need a place to stay after 09/25. Tiara Gonzalez September 14, 2017 13:27 Shahla Duron MD September 14, 2017 19:17
[2017-09-14] MEDS ORDERED: POTASSIUM CHLORIDE 20 MEQ CONTROLLED RELEASE TAB PO ONE (13:30)
[2017-09-14] MEDS: SODIUM CHLORIDE 0.9% FLUSH 10 ML FLUSH IV FLUSH SCH ×2 (14:03→21:55)
--- NOTE | 2017-09-14 17:02 | HHI.IDPN ---
Note Infectious Disease Note Infectious disease follow-up. Patient continues to be profoundly neutropenic. Currently sitting up in a chair. Afebrile. Denies shortness of breath. Notes that he gets chills. Has diffuse anasarca. Market swelling of the scrotum. Some skin breakdown noted at the posterior aspect of the scrotum. Receiving blood transfusion. Diagnosed with Burkitt lymphoma. The patient just completed chemotherapy on . He has been receiving antibiotics for E. coli bacteremia, which was cultured on 09/06. PAST MEDICAL HISTORY: Asthma, gastroesophageal reflux disease, hypertension, history of prostate cancer, history of prostatectomy, history of cholecystectomy, history of coronary stent x 2. ALLERGIES: PENICILLIN. THE PATIENT RECALLS ALLERGIC REACTION FROM CHILDHOOD, BUT NO SPECIFIC DETAILS. QUINOLONES, DIPHENHYDRAMINE, HYDROCODONE, MEPERIDINE. MEDICATIONS: Current Medications Medications (Trade) Dose Ordered Sig/Robert Route PRN Reason Start Time Stop Time Status Last Admin Dose Admin Sodium Chloride (NS Flush) 2 ml UNSCH PRN IV FLUSH FLUSH AFTER USING IV ACCESS 08/29/17 15:45 09/08/17 23:42 Sodium Chloride (NS Flush) 2 ml BID IV FLUSH 08/29/17 21:00 09/14/17 14:03 Pantoprazole Sodium (Protonix Inj) 40 mg DAILY IV PUSH 08/30/17 09:00 09/14/17 10:27 Ondansetron HCl (Zofran Inj) 4 mg Q6H PRN IV PUSH NAUSEA OR VOMITING 08/29/17 16:00 09/09/17 10:08 Albuterol/ Ipratropium (Duoneb Neb) 1 ampule Q2HR NEB PRN INH WHEEZING 08/29/17 16:00 09/04/17 23:32 Miscellaneous Information 1 [id number] XX 08/29/17 15:45 Chlorhexidine Gluconate (Chlorhexidine 2% Cloth) Taper DAILY@04 TOP 08/30/17 04:00 08/26/18 03:59 09/13/17 05:13 Chlorhexidine Gluconate (Chlorhexidine 2% Cloth) 3 pack UNSCH PRN TOP HYGIENIC CARE 08/29/17 15:45 Senna/Docusate Sodium (Madina-Colace) 1 tab BID PO 08/29/17 21:00 09/14/17 10:29 Magnesium Hydroxide (Milk Of Magnesia Liq) 30 ml Q12H PRN PO Mild constipation 08/29/17 16:00 Sennosides (Senokot) 17.2 mg Q12H PRN PO Moderate constipation 08/29/17 16:00 Bisacodyl (Dulcolax Supp) 10 mg DAILY PRN RECTAL SEVERE CONSITIPATION 08/29/17 16:00 Lactulose (Lactulose Liq) 30 ml DAILY PRN PO SEVERE CONSITIPATION 08/29/17 16:00 Albuterol Sulfate (Proair Hfa Inh) 2 puff Q6H PRN INH SHORTNESS OF BREATH 08/29/17 18:00 09/13/17 11:05 Amlodipine Besylate (Norvasc) 10 mg DAILY PO 08/30/17 09:00 Future Hold 09/05/17 10:12 Budesonide/ Formoterol Fumarate (Symbicort 160-4.5 Mcg Inh) 2 puff BID INH 08/29/17 21:00 09/13/17 22:01 Ramipril (Altace) 10 mg DAILY PO 08/30/17 14:00 Future Hold 09/05/17 10:12 Morphine Sulfate (Morphine Inj) 2 mg Q4H PRN IV PUSH Pain 3 to 6 09/01/17 16:00 09/14/17 00:54 Morphine Sulfate (Morphine Inj) 4 mg Q4H PRN IV PUSH Pain 7 to 10 09/01/17 16:00 09/11/17 00:35 Sodium Chloride (NS Flush) DAILY IVF 09/05/17 09:00 09/14/17 10:28 Heparin Sodium (Porcine) (Heparin Central Flush) DAILY IV FLUSH 09/05/17 09:00 09/14/17 10:27 Sodium Chloride (NS Flush) UNSCH PRN IVF SEE PROTOCOL 09/04/17 16:00 09/10/17 21:58 Heparin Sodium (Porcine) (Heparin Central Flush) UNSCH PRN IV FLUSH SEE PROTOCOL 09/04/17 16:00 Sodium Chloride (NS Flush) UNSCH PRN IVF SEE PROTOCOL 09/04/17 16:00 09/10/17 21:59 Norepinephrine Bitartrate 250 ml @ 7.5 mls/hr TITRATE PRN IV Blood pressure management 4/26/18 10:15 09/08/17 05:40 Terbutaline Sulfate (Brethine Inj) 1 mg UNSCH PRN SQ For Extravasation 09/06/17 10:15 Aztreonam 1000 mg/ Sodium Chloride 100 ml @ 200 mls/hr Q8H IV 09/06/17 12:00 09/14/17 04:46 Pharmacy Profile Note 0 ml @ 0 mls/hr UNSCH OTHER 09/07/17 18:00 Nystatin (Mycostatin Liq) 5 ml QID SWISH-SWAL 09/09/17 13:00 09/13/17 21:58 Lidocaine HCl (Xylocaine 2% Viscous) 15 ml Q4H PRN SWISH-SPIT mouth pain 09/09/17 10:15 09/13/17 18:04 Filgrastim 480 mcg/Dextrose 51.6 ml @ 100 mls/hr DAILY@14 IV 09/11/17 21:00 09/13/17 18:06 Chlorothiazide (Diuril) 250 mg BID@,18 PO 09/11/17 20:00 09/14/17 10:25 Zinc Oxide (Desitin 40% Oint) 1 applic UNSCH PRN TOPICAL DIAPER RASH 09/12/17 09:30 09/13/17 18:07 Nystatin (Mycostatin Powder) 1 applic Q8HR TOPICAL 09/12/17 09:30 09/14/17 04:49 Potassium Chloride (KCl) 40 meq Q12HR PO 09/12/17 21:00 09/14/17 10:26 Fluconazole (Diflucan) 100 mg DAILY PO 09/13/17 09:00 09/14/17 10:29 Lidocaine HCl (Xylocaine 2% Jelly) 1 applic ONCE TOPICAL 09/12/17 20:00 09/15/17 19:59 09/13/17 18:06 Dextrose 1,000 ml @ 42 mls/hr [id number] IV 09/13/17 09:00 09/13/17 10:58 Albumin Human 50 ml @ 60 mls/hr Q12H IV 09/13/17 09:00 09/15/17 09:00 09/14/17 10:14 Calcium Carbonate (Oscal) 1,000 mg BID PO 09/13/17 09:00 09/14/17 10:29 Nystatin (Mycostatin Liq) 5 ml QID SWISH-SWAL 09/13/17 13:00 09/18/17 12:59 09/14/17 14:00 Lorazepam (Ativan) 0.5 mg Q6H PRN PO anxiety/ sleep 09/13/17 17:30 09/13/17 21:58 Sodium Chloride 250 ml @ 15 mls/hr ONCE ONCE IV 09/14/17 10:45 09/15/17 03:24 Acetaminophen (Tylenol) 650 mg Q4H PRN PO SEE LABEL COMMENTS 09/14/17 10:45 Sodium Chloride 250 ml @ 15 mls/hr ONCE ONCE IV 09/14/17 11:00 09/15/17 03:39 Multi-Ingredient Mouthwash/Gargle (Magic Mouthwash Adult Liq) 10 ml QID SWISH-SWAL 09/14/17 18:00 UNV Furosemide (Lasix Inj) 20 mg ONCE ONCE IV PUSH 09/14/17 17:30 09/14/17 17:31 UNV SOCIAL HISTORY: The patient resides in [place], [place]. No tobacco, rare alcohol use. No illicit drugs. Objective: Vital Signs Date Time Temp Pulse Resp B/P (MAP) Pulse Ox O2 Delivery O2 Flow Rate FiO2 09/14/17 15:53 97.9 99 20 123/84 99 09/14/17 14:59 93 98 09/14/17 14:35 98 20 134/71 97 09/14/17 14:35 98.1 09/14/17 14:12 98.9 91 20 93/ 100 09/14/17 14:00 98.9 90 20 133/67 99 09/14/17 13:09 98.4 95 24 98 09/14/17 12:30 98.8 148 24 124/72 98 09/14/17 09:01 98.3 99 118/76 (90) 95 09/14/17 05:04 97 Room Air 2.00 09/14/17 04:37 98.3 89 18 135/76 (95) 97 09/14/17 00:36 97.7 91 18 138/75 (96) 97 09/14/17 00:17 82 09/13/17 21:55 98.8 91 18 145/96 (112) 98 09/13/17 20:34 98 Nasal Cannula 2.00 09/13/17 20:09 88 09/13/17 18:00 98.4 Laboratory Tests Test 09/12/17 18:50 09/13/17 06:40 09/14/17 04:52 White Blood Count 0.1 TH/MM3 0.1 TH/MM3 0.1 TH/MM3 Red Blood Count 2.30 MIL/MM3 2.47 MIL/MM3 1.93 MIL/MM3 Hemoglobin 7.1 GM/DL 7.5 GM/DL 5.9 GM/DL Hematocrit 19.9 % 21.2 % 16.8 % Mean Corpuscular Volume 86.6 FL 85.8 FL 86.8 FL Mean Corpuscular Hemoglobin 30.8 PG 30.5 PG 30.6 PG Mean Corpuscular Hemoglobin Concent 35.6 % 35.5 % 35.2 % Red Cell Distribution Width 14.3 % 13.8 % 13.9 % Platelet Count 9 TH/MM3 16 TH/MM3 3 TH/MM3 Mean Platelet Volume 7.1 FL 6.7 FL 8.0 FL CBC Comment AUTO DIFF AUTO DIFF Differential Total Cells Counted 3 10 Lymphocytes % 100 % 90 % Neutrophils # (Manual) 0.0 TH/MM3 0.0 TH/MM3 Differential Comment FINAL DIFF MANUAL FINAL DIFF MANUAL Platelet Estimate RARE RARE Platelet Morphology Comment NORMAL NORMAL Neutrophils % (Manual) 10 % Laboratory Tests Test 09/12/17 18:50 09/13/17 01:15 09/13/17 06:40 09/14/17 04:52 Blood Urea Nitrogen 51 MG/DL 49 MG/DL 42 MG/DL Creatinine 1.26 MG/DL 1.13 MG/DL 1.06 MG/DL Random Glucose 202 MG/DL 163 MG/DL 154 MG/DL Total Protein 4.7 GM/DL 4.4 GM/DL 4.3 GM/DL Albumin 2.1 GM/DL 2.1 GM/DL Calcium Level 6.5 MG/DL 6.3 MG/DL 6.3 MG/DL Alkaline Phosphatase 86 U/L 74 U/L Aspartate Amino Transf (AST/SGOT) 32 U/L 27 U/L Alanine Aminotransferase (ALT/SGPT) 94 U/L 79 U/L Total Bilirubin 1.1 MG/DL 1.4 MG/DL Sodium Level 150 MEQ/L 152 MEQ/L 150 MEQ/L Potassium Level 3.2 MEQ/L 3.4 MEQ/L 3.4 MEQ/L Chloride Level 115 MEQ/L 116 MEQ/L 113 MEQ/L Carbon Dioxide Level 27.9 MEQ/L 29.2 MEQ/L 29.9 MEQ/L Anion Gap 7 MEQ/L 7 MEQ/L 7 MEQ/L Estimat Glomerular Filtration Rate 56 ML/MIN 64 ML/MIN 68 ML/MIN Protein Corrected Calcium 7.7 MG/DL 7.6 MG/DL 7.7 MG/DL Uric Acid 0.6 MG/DL Magnesium Level 2.0 MG/DL Lactate Dehydrogenase 995 U/L Imaging: Chest X-Ray 09/05/17 0000 Signed Impressions: Service Date/Time: Tuesday, September 05, 2017 01:50 - CONCLUSION: 1. Right PICC line in superior vena cava. Subsegmental basilar airspace disease. No effusion or pneumothorax. Cory Camarena MD PICC Line Insertion 09/04/17 0600 Signed Impressions: Service Date/Time: Monday, September 04, 2017 15:12 - CONCLUSION: 1. Uncomplicated central venous Power PICC line placement. 2. The PICC line can be used immediately. Santy Burciaga Jr., MD Lumbar Puncture Fluoroscopy 09/04/17 0000 Signed Impressions: Service Date/Time: Monday, September 04, 2017 15:12 - CONCLUSION: Uncomplicated fluoroscopically guided lumbar puncture with pressures as above. Intrathecal methotrexate was administered. Santy Burciaga Jr., MD Chest CT 09/01/17 0000 Signed Impressions: Service Date/Time: Friday, September 01, 2017 16:48 - CONCLUSION: 1. No definite evidence for metastatic disease to the thorax. 2. 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 3. Scattered atelectasis and scarring in the lungs. 4. Moderate coronary calcifications. Cory Camarena MD Abdomen/Pelvis CT 09/01/17 0000 Signed Impressions: Service Date/Time: Friday, September 01, 2017 16:48 - CONCLUSION: 1. Post surgical changes with findings of cholecystectomy and prostatectomy. 2. Scattered diverticular disease of the colon without diverticulitis. 3. Lobulated cyst in the upper poles of both kidneys with some calcification on the left. 4. Retroperitoneal fat herniates through the left hemidiaphragm into the posterior left lung base. 5. No acute intraperitoneal or pelvic process to explain current clinical symptoms Gavin Lynn MD Bone Biopsy CT 08/30/17 1535 Signed Impressions: Service Date/Time: August 16:19 - CONCLUSION: 1. Uncomplicated CT guided bone marrow aspirate. 2. Uncomplicated CT guided bone marrow biopsy. Srikanth Ambrosio MD Thoracic Spine CT 08/30/1799 Signed Impressions: Service Date/Time: August 01:37 - CONCLUSION: 1. No fracture, subluxation or other acute abnormality of the thoracic spine. 2. Scoliosis and mild multifocal degenerative changes as above. 3. Complex appearing cystic structures of the upper poles of both kidneys. Comparison to any previous outside facility studies is recommended to confirm chronicity and stability. Contrast enhanced study of the abdomen suggested if felt clinically indicated, preferably MRI if there are no contraindications. Tim Jones MD Lumbar Spine CT 08/30/1799 Signed Impressions: Service Date/Time: August 01:37 - CONCLUSION: 1. No acute fracture or acute subluxation of the lumbar spine. 2. 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 3. Mild spinal and bilateral foraminal stenosis at L4/L5. 4. Mild right and moderate left foraminal stenosis at L5/S1. 5. Benign vertebral body hemangioma of L1. No concerning lumbar spine bone lesion. Tim Jones MD Head CT 08/30/1799 Signed Impressions: Service Date/Time: August 01:37 - CONCLUSION: Small frontal madina-falcine subdural blood is unchanged. Tim Jones MD Carotid Artery Ultrasound 08/30/17 0000 Signed Impressions: Service Date/Time: August 07:52 - CONCLUSION: 1. Diffuse calcified plaque throughout carotid arteries bilaterally with resultant moderate, 50-69%%, stenosis of the internal carotid arteries bilaterally and likely moderate stenosis of the left common carotid artery. 2. Antegrade vertebral artery flow bilaterally. Lopez Taylor MD Brain MRI 08/30/17 0000 Signed Impressions: Service Date/Time: August 09:27 - CONCLUSION: 1. Right frontal parafalcine abnormality on CT exam corresponds to a small meningioma. No definitive intra-or extra-axial hemorrhage. Lopez Taylor MD PHYSICAL EXAMINATION: GENERAL: No acute distress. HEENT: Head is atraumatic. Extraocular movements are grossly intact. Pupils reactive to light. No icterus. Oropharynx, mucosa is somewhat dry. No thrush. No visible lesions. NECK: Supple without adenopathy. LUNGS: Clear breath sounds. HEART: Regular S1 and S2. No murmurs, rubs or gallop. ABDOMEN: Obese, soft, diminished bowel sounds. Nontender. : Severe swelling of the scrotum. This is at the scrotal surface. Skin breakdown and some oozing of blood at the posterior aspect. EXTREMITIES: Diffuse 3+ edema involving both upper and lower extremities. SKIN: No diffuse rash. NEUROLOGIC: No gross focal finding. PSYCHIATRIC: Calm and cooperative. IMPRESSION: 1. Bacteremia due to Escherichia coli. Being treated. 2. Persistent neutropenia and thrombocytopenia in patient with Burkitt lymphoma. Status post chemotherapy. Patient at high risk for infection. 3. Scrotal edema. Diffuse anasarca. RECOMMENDATIONS: 1. Continue aztreonam intravenous. 2. Monitor the temperature. 3. Obtain blood cultures if he develops fever. 4. Insert Garnett catheter since he risks developing erosion and ulceration of the scrotal wall and hence Cellulitis from urine bacteria. 5. Broaden antibiotics if he develops fever. Discussed with RN. Discussed with Dr. Duron. Estevan Benjamin MD September 14, 2017 17:01
[2017-09-14] MEDS: DEXTROSE 5% IN WATE 1000ML INJ 1,000 ML IV SCH (18:01)
[2017-09-14] MEDS: ACETAMINOPHEN 325 MG TAB PO PRN (18:53)
[2017-09-14] MEDS: FILGRASTIM INJ 480 MCG in DEXTROSE 5% IN WATER INJ 50 ML IV SCH ×2 (18:53)
[2017-09-15] VITALS (16 sets, daily range): BP systolic 106–162; BP diastolic 44–83; PULSE 76–101; RESP 18–20; TEMP 97.3–98.7; O2SAT 95–98
[2017-09-15] MEDS: LORazepam 0.5 MG TAB PO PRN (01:32)
[2017-09-15 01:56] LABS: MEAN CELL VOLUME 84.1 FL (80.0-100.0); MEAN CORPUSCULAR HEMOGLOBIN 29.8 PG (27.0-34.0); MEAN CORPUSCULAR HGB CONC 35.5 % (32.0-36.0); RED BLOOD COUNT 2.13 MIL/MM3 (4.50-5.90); RED CELL DISTRIBUTION WIDTH 14.7 % (11.6-17.2)
[2017-09-15 02:05] LABS: HEMATOCRIT 17.9 % (39.0-51.0); HEMOGLOBIN 6.4 GM/DL (13.0-17.0); PLATELET COUNT 14 TH/MM3 (150-450)
[2017-09-15 03:00] LABS: LYMPHOCYTES 100 % (9-44)
[2017-09-15] MEDS: CHLORHEXIDINE GLUCONATE 2 % 1 PACK (2 CLOTHS) TOP SCH (04:00)
[2017-09-15] MEDS: NYSTATIN 100,000 U/GM PWD 15 GM BTL TOPICAL SCH ×3 (04:42→22:00)
[2017-09-15] MEDS: AZTREONAM INJ 1,000 MG in SODIUM CHLORIDE 0.9% INJ 100 ML IV SCH ×3 (04:42→20:31)
[2017-09-15 06:03] LABS: MEAN CELL VOLUME 83.3 FL (80.0-100.0); MEAN CORPUSCULAR HEMOGLOBIN 29.7 PG (27.0-34.0); MEAN CORPUSCULAR HGB CONC 35.6 % (32.0-36.0); MEAN PLATELET VOLUME 7.3 FL (7.0-11.0); RED BLOOD COUNT 2.19 MIL/MM3 (4.50-5.90); RED CELL DISTRIBUTION WIDTH 14.7 % (11.6-17.2)
[2017-09-15 06:07] LABS: HEMOGLOBIN 6.5 GM/DL (13.0-17.0)
[2017-09-15 06:08] LABS: HEMATOCRIT 18.2 % (39.0-51.0); PLATELET COUNT 11 TH/MM3 (150-450)
[2017-09-15] MEDS: ACETAMINOPHEN 325 MG TAB PO PRN ×3 (06:31→22:25)
[2017-09-15 06:40] LABS: BICARBONATE 30.6 MEQ/L (21.0-32.0); CALCIUM 6.4 MG/DL (8.5-10.1); CREATININE 1.06 MG/DL (0.60-1.30)
[2017-09-15 07:01] LABS: CALCIUM-PROTEIN CORRECTED 7.8 MG/DL (8.5-10.1); TOTAL PROTEIN 4.4 GM/DL (6.4-8.2)
--- NOTE | 2017-09-15 08:02 | HHI.PR ---
Subjective Remarks Feels very tired. Says edema is not improving. No fever or chills. No shortness of breath at this time she is not coughing. Has a Jensen with orange urine output. Hemoglobin low , PLT low again transfuse per hem/onc Objective Vitals Vital Signs Date Time Temp Pulse Resp B/P (MAP) Pulse Ox O2 Delivery O2 Flow Rate FiO2 09/15/17 07:07 97.7 82 19 154/73 97 09/15/17 04:43 97.3 89 19 145/83 (103) 95 09/14/17 23:40 97.6 82 19 150/77 97 09/14/17 22:02 98 Nasal Cannula 2.00 09/14/17 20:50 97.5 94 20 143/81 94 09/14/17 20:23 99.0 101 14 145/79 97 09/14/17 20:20 98 2.00 09/14/17 20:00 96 09/14/17 16:00 99 09/14/17 15:53 97.9 99 20 123/84 99 09/14/17 14:59 93 98 09/14/17 14:35 98 20 134/71 97 09/14/17 14:35 98.1 09/14/17 14:12 98.9 91 20 93/ 100 09/14/17 14:00 98.9 90 20 133/67 99 09/14/17 13:09 98.4 95 24 98 09/14/17 13:00 95 09/14/17 12:30 98.8 148 24 124/72 98 09/14/17 09:01 98.3 99 118/76 (90) 95 I/O 09/14/17 09/14/17 09/14/17 09/15/17 09/15/17 09/15/17 07:00 15:00 23:00 07:00 15:00 23:00 Intake Total 590 ml 311 ml 2806 ml 350 ml Output Total 2250 ml 1225 ml 525 ml Balance -1660 ml -914 ml 2281 ml 350 ml Intake Oral 540 ml 720 ml IV Total 50 ml 336 ml Albumin 50 ml Packed Cells 900 ml 350 ml Platelets 281 ml 200 ml Blood Product IV Normal Saline Flush 30 ml Other 600 ml Output Urine Total 2250 ml 1225 ml 525 ml Result Diagram: 09/15/17 0450 09/15/17 0450 Imaging Last Impressions Chest X-Ray 09/05/17 0000 Signed Impressions: Service Date/Time: Tuesday, September 05, 2017 01:50 - CONCLUSION: 1. Right PICC line in superior vena cava. Subsegmental basilar airspace disease. No effusion or pneumothorax. Cory Camarena MD PICC Line Insertion 09/04/17 0600 Signed Impressions: Service Date/Time: Monday, September 04, 2017 15:12 - CONCLUSION: 1. Uncomplicated central venous Power PICC line placement. 2. The PICC line can be used immediately. Santy Burciaga Jr., MD Lumbar Puncture Fluoroscopy 09/04/17 0000 Signed Impressions: Service Date/Time: Monday, September 04, 2017 15:12 - CONCLUSION: Uncomplicated fluoroscopically guided lumbar puncture with pressures as above. Intrathecal methotrexate was administered. Santy Burciaga Jr., MD Chest CT 09/01/17 0000 Signed Impressions: Service Date/Time: Friday, September 01, 2017 16:48 - CONCLUSION: 1. No definite evidence for metastatic disease to the thorax. 2. 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 3. Scattered atelectasis and scarring in the lungs. 4. Moderate coronary calcifications. Cory Camarena MD Abdomen/Pelvis CT 09/01/17 0000 Signed Impressions: Service Date/Time: Friday, September 01, 2017 16:48 - CONCLUSION: 1. Post surgical changes with findings of cholecystectomy and prostatectomy. 2. Scattered diverticular disease of the colon without diverticulitis. 3. Lobulated cyst in the upper poles of both kidneys with some calcification on the left. 4. Retroperitoneal fat herniates through the left hemidiaphragm into the posterior left lung base. 5. No acute intraperitoneal or pelvic process to explain current clinical symptoms Gavin Lynn MD Bone Biopsy CT 08/30/17 1535 Signed Impressions: Service Date/Time: August 16:19 - CONCLUSION: 1. Uncomplicated CT guided bone marrow aspirate. 2. Uncomplicated CT guided bone marrow biopsy. Sriknath Ambrosio MD Thoracic Spine CT 08/30/17 0100 Signed Impressions: Service Date/Time: August 01:37 - CONCLUSION: 1. No fracture, subluxation or other acute abnormality of the thoracic spine. 2. Scoliosis and mild multifocal degenerative changes as above. 3. Complex appearing cystic structures of the upper poles of both kidneys. Comparison to any previous outside facility studies is recommended to confirm chronicity and stability. Contrast enhanced study of the abdomen suggested if felt clinically indicated, preferably MRI if there are no contraindications. Tim Jones MD Lumbar Spine CT 08/30/17 0100 Signed Impressions: Service Date/Time: August 01:37 - CONCLUSION: 1. No acute fracture or acute subluxation of the lumbar spine. 2. 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 3. Mild spinal and bilateral foraminal stenosis at L4/L5. 4. Mild right and moderate left foraminal stenosis at L5/S1. 5. Benign vertebral body hemangioma of L1. No concerning lumbar spine bone lesion. Tim Jones MD Head CT 08/30/17 0100 Signed Impressions: Service Date/Time: August 01:37 - CONCLUSION: Small frontal maddy-falcine subdural blood is unchanged. Tim Jones MD Carotid Artery Ultrasound 08/30/17 0000 Signed Impressions: Service Date/Time: August 07:52 - CONCLUSION: 1. Diffuse calcified plaque throughout carotid arteries bilaterally with resultant moderate, 50-69%%, stenosis of the internal carotid arteries bilaterally and likely moderate stenosis of the left common carotid artery. 2. Antegrade vertebral artery flow bilaterally. Lopez Taylor MD Brain MRI 08/30/17 0000 Signed Impressions: Service Date/Time: August 09:27 - CONCLUSION: 1. Right frontal parafalcine abnormality on CT exam corresponds to a small meningioma. No definitive intra-or extra-axial hemorrhage. Lopez Taylor MD Objective Remarks General appearance: Very pleasant elderly gentleman, awake, weak, ill-appearing Cardiovascular: Regular heart sounds, no murmurs Respiratory: Clear bilateral, good air entry, no wheezes Abdomen: soft, non-tender, no rebound. Extremities: warm and well perfused, 3+ pitting edema : scrotal edema Procedures Bone marrow biopsy 08/30/2017. Line: PICC A/P Problem List: (1) Anemia ICD Code: D64.9 - Anemia, unspecified Status: Acute (2) Thrombocytopenia ICD Code: D69.6 - Thrombocytopenia, unspecified Status: Acute (3) GI bleed ICD Code: K92.2 - Gastrointestinal hemorrhage, unspecified Status: Acute (4) Back pain ICD Code: M54.9 - Dorsalgia, unspecified Status: Acute (5) History of ME (myocardial infarction) ICD Code: I25.2 - Old myocardial infarction (6) B-cell lymphoma ICD Code: C85.10 - Unspecified B-cell lymphoma, unspecified site Status: Acute (7) Abnormal head CT ICD Code: R93.0 - Abnormal findings on diagnostic imaging of skull and head, not elsewhere classified (8) Hearing loss ICD Code: H91.90 - Unspecified hearing loss, unspecified ear (9) Leukocytosis ICD Code: D72.829 - Elevated white blood cell count, unspecified Assessment and Plan 72y/o male with anemia + thrombocytopenia. History of prostate cancer, status post prostatectomy, coronary artery disease, s/p stent placement. 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 Septic shock - resolved E coli and strep viridans bacteremia - repeat blood cx are negative to date. Etiology of E coli in blood - No evidence of a UTI based on symptoms. ID consulted for further recommendation. Continue IV aztreonam for now.Echocardiogram shows an EF of 55-60% with moderate concentric left ventricular hypertrophy. No vegetation reported. Tumor lysis syndrome - Resolved. Allopurinol on hold Hyperkalemia now hypokalemia and hypocalcemia.-Continue to replace. Monitor closely. LUCA/hypernatremia- creatinine trending down, good urine output. Continue half normal saline due to hypernatremia. Monitor BMPs every 6 hours. Cautioned to not overcorrect quickly sodium levels. Encourage p.o. hydration (250ml water q4 -6hrs while awake). Nephrology following, appreciate recs. Pt has been started on diuril. Monitor Cr closely. Metabolic acidosis - improved Pancytopenia - worsening, requiring additional transfusion. Transfusion and G- CSF per oncology. Pt did receive one unit of platelet overnight per heme/onc recs PlT at 3, HGB drop to 5.9 today 5/4. Transfuse. Transfuse 2 units packed red blood cells today for hemoglobin of 5.9 Transfuse 1 unit platelets for platelet count 3000 Repeat CBC at 8 PM Transfuse to keep platelets greater than 10,000, hemoglobin greater than 7.5 Continue Neupogen Burkitt's lymphoma receiving chemo. Management per hematology History of prostate cancer status post XRT Diarrhea - seems to have improved, monitor. Oral thrush nystatin swish Scrotal edema/ LE edema. Give lasix 20 mg IV and albumin IV. Monitor UOP. , monitor closely kidney function. Scrotal small tears noted, pt having pain with urination due to urine touching those open tears and burning. Dr. Duron doesn't recommend placing a jensen as he is at high risk for bleeding due to his low plt count and also high risk for infection due to his neutropenia. Desitin cream and lidocaine jelly to be applied. Keep pt dry as much as possible. Place a condom catheter, will do but at this time, edema is too much and this cannot be done. Nystatin powder also ordered Patient however with significant scrotal edema and pain, has a Jensen placed with orange urine, fairly good outcome. Discharge Planning Continue to replace electrolytes. Monitor sodium levels closely. Transfuse per heme/onc recs. CM assisting with DC planning as family wishes to pursue care in [place] has a plane ticket for 09/22/17 Transfuse with worsening HGB and PLT 09/14, 09/15 Problem Qualifiers (1) Anemia: Qualified Codes: D64.9 - Anemia, unspecified (2) Back pain: Qualified Codes: M54.9 - Dorsalgia, unspecified (3) Hearing loss: Qualified Codes: H91.92 - Unspecified hearing loss, left ear (4) Leukocytosis: Qualified Codes: D72.829 - Elevated white blood cell count, unspecified Adelaide Grande MD September 15, 2017 08:02
[2017-09-15 08:44] LABS: LYMPHOCYTES 100 % (9-44)
[2017-09-15] MEDS: NYSTATIN SUSP 500,000 U/5 ML CUP SWISH-SWAL SCH ×2 (09:00→09:59)
[2017-09-15] MEDS: CHLOROTHIAZIDE 250 MG TAB PO SCH ×2 (09:58→16:52)
[2017-09-15] MEDS: PANTOPRAZOLE SODIUM 40 MG VIAL IV PUSH SCH (09:58)
[2017-09-15] MEDS: ALBUMIN 25% INJ 50 ML IV SCH (09:58)
[2017-09-15] MEDS: FLUCONAZOLE 100 MG TAB PO SCH (09:59)
[2017-09-15] MEDS: CALCIUM CARBONATE 1.25 GM (CA 500 MG) TAB PO SCH ×2 (09:59→20:38)
[2017-09-15] MEDS: POTASSIUM CHLORIDE 10 MEQ CONTROLLED RELEASE TAB PO SCH (09:59)
[2017-09-15] MEDS: DOCUSATE SODIUM 50 MG/SENNA 8.6 MG TAB PO SCH ×2 (09:59→20:38)
[2017-09-15] MEDS: SODIUM CHLORIDE 0.9% FLUSH 10 ML FLUSH IV FLUSH SCH ×2 (10:00→20:33)
[2017-09-15] MEDS: BUDESONIDE-FORMOTEROL 160/4.5 MCG INHALER INH SCH ×2 (10:01→20:32)
--- NOTE | 2017-09-15 10:10 | PD.ONC.PN ---
Subjective Subjective Remarks Afebrile The patient reports he overall feels much better today than yesterday Happy to have a Garnett catheter in place Very anxious and motivated to work with physical therapy I have spoken with the physical therapist who states the patient was quite weak when he stood him up at the bedside today and will likely try again tomorrow. No obvious bleeding per patient Objective Data Date Time Temp Pulse Resp B/P (MAP) Pulse Ox O2 Delivery O2 Flow Rate FiO2 09/15/17 07:22 82 18 131/71 96 09/15/17 07:07 97.7 82 19 154/73 97 09/15/17 06:00 96 Nasal Cannula 1.00 09/15/17 04:43 97.3 89 19 145/83 (103) 95 09/15/17 04:00 84 09/15/17 00:00 86 09/14/17 23:40 97.6 82 19 150/77 97 09/14/17 22:02 98 Nasal Cannula 2.00 09/14/17 20:50 97.5 94 20 143/81 94 09/14/17 20:23 99.0 101 14 145/79 97 09/14/17 20:20 98 2.00 09/14/17 20:00 96 09/14/17 16:00 99 09/14/17 15:53 97.9 99 20 123/84 99 09/14/17 14:59 93 98 09/14/17 14:35 98 20 134/71 97 09/14/17 14:35 98.1 09/14/17 14:12 98.9 91 20 93/ 100 09/14/17 14:00 98.9 90 20 133/67 99 09/14/17 13:09 98.4 95 24 98 09/14/17 13:00 95 09/14/17 12:30 98.8 148 24 124/72 98 09/15/17 09/15/17 09/15/17 07:00 15:00 23:00 Intake Total 1674 ml Output Total 2400 ml Balance -726 ml Result Diagram: 09/15/17 0450 09/15/17 0450 Laboratory Results Laboratory Tests Test 09/15/17 01:30 09/15/17 04:50 White Blood Count 0.0 TH/MM3 0.0 TH/MM3 Red Blood Count 2.13 MIL/MM3 2.19 MIL/MM3 Hemoglobin 6.4 GM/DL 6.5 GM/DL Hematocrit 17.9 % 18.2 % Mean Corpuscular Volume 84.1 FL 83.3 FL Mean Corpuscular Hemoglobin 29.8 PG 29.7 PG Mean Corpuscular Hemoglobin Concent 35.5 % 35.6 % Red Cell Distribution Width 14.7 % 14.7 % Platelet Count 14 TH/MM3 11 TH/MM3 Mean Platelet Volume 7.0 FL 7.3 FL CBC Comment AUTO DIFF AUTO DIFF Differential Total Cells Counted 10 5 Lymphocytes % 100 % 100 % Differential Comment FINAL DIFF MANUAL FINAL DIFF MANUAL Platelet Estimate LOW RARE Platelet Morphology Comment NORMAL NORMAL Neutrophils # (Manual) 0.0 TH/MM3 Blood Urea Nitrogen 41 MG/DL Creatinine 1.06 MG/DL Random Glucose 146 MG/DL Total Protein 4.4 GM/DL Calcium Level 6.4 MG/DL Sodium Level 149 MEQ/L Potassium Level 3.3 MEQ/L Chloride Level 112 MEQ/L Carbon Dioxide Level 30.6 MEQ/L Anion Gap 6 MEQ/L Estimat Glomerular Filtration Rate 68 ML/MIN Protein Corrected Calcium 7.8 MG/DL Administered Medications Medications (Trade) Dose Ordered Sig/Robert Route PRN Reason Start Time Stop Time Status Last Admin Dose Admin Sodium Chloride (NS Flush) 2 ml UNSCH PRN IV FLUSH FLUSH AFTER USING IV ACCESS 08/29/17 15:45 09/08/17 23:42 Sodium Chloride (NS Flush) 2 ml BID IV FLUSH 08/29/17 21:00 09/15/17 10:00 Pantoprazole Sodium (Protonix Inj) 40 mg DAILY IV PUSH 08/30/17 09:00 09/15/17 09:58 Ondansetron HCl (Zofran Inj) 4 mg Q6H PRN IV PUSH NAUSEA OR VOMITING 08/29/17 16:00 09/09/17 10:08 Albuterol/ Ipratropium (Duoneb Neb) 1 ampule Q2HR NEB PRN INH WHEEZING 08/29/17 16:00 09/04/17 23:32 Chlorhexidine Gluconate (Chlorhexidine 2% Cloth) Taper DAILY@04 TOP 08/30/17 04:00 08/26/18 03:59 09/13/17 05:13 Senna/Docusate Sodium (Madina-Colace) 1 tab BID PO 08/29/17 21:00 09/15/17 09:59 Albuterol Sulfate (Proair Hfa Inh) 2 puff Q6H PRN INH SHORTNESS OF BREATH 08/29/17 18:00 09/13/17 11:05 Amlodipine Besylate (Norvasc) 10 mg DAILY PO 08/30/17 09:00 Future Hold 09/05/17 10:12 Budesonide/ Formoterol Fumarate (Symbicort 160-4.5 Mcg Inh) 2 puff BID INH 08/29/17 21:00 09/15/17 10:01 Ramipril (Altace) 10 mg DAILY PO 08/30/17 14:00 Future Hold 09/05/17 10:12 Morphine Sulfate (Morphine Inj) 2 mg Q4H PRN IV PUSH Pain 3 to 6 09/01/17 16:00 09/14/17 00:54 Morphine Sulfate (Morphine Inj) 4 mg Q4H PRN IV PUSH Pain 7 to 10 09/01/17 16:00 09/11/17 00:35 Sodium Chloride (NS Flush) DAILY IVF 09/05/17 09:00 09/14/17 10:28 Heparin Sodium (Porcine) (Heparin Central Flush) DAILY IV FLUSH 09/05/17 09:00 09/14/17 10:27 Sodium Chloride (NS Flush) UNSCH PRN IVF SEE PROTOCOL 09/04/17 16:00 09/10/17 21:58 Sodium Chloride (NS Flush) UNSCH PRN IVF SEE PROTOCOL 09/04/17 16:00 09/10/17 21:59 Norepinephrine Bitartrate 250 ml @ 7.5 mls/hr TITRATE PRN IV Blood pressure management 09/06/17 10:15 09/08/17 05:40 Aztreonam 1000 mg/ Sodium Chloride 100 ml @ 200 mls/hr Q8H IV 09/06/17 12:00 09/15/17 04:42 Nystatin (Mycostatin Liq) 5 ml QID SWISH-SWAL 09/09/17 13:00 09/15/17 09:59 Lidocaine HCl (Xylocaine 2% Viscous) 15 ml Q4H PRN SWISH-SPIT mouth pain 09/09/17 10:15 09/13/17 18:04 Filgrastim 480 mcg/Dextrose 51.6 ml @ 100 mls/hr DAILY@14 IV 09/11/17 21:00 09/14/17 18:53 Chlorothiazide (Diuril) 250 mg BID@18 PO 09/11/17 20:00 09/15/17 09:58 Zinc Oxide (Desitin 40% Oint) 1 applic UNSCH PRN TOPICAL DIAPER RASH 09/12/17 09:30 09/13/17 18:07 Nystatin (Mycostatin Powder) 1 applic Q8HR TOPICAL 09/12/17 09:30 09/15/17 04:42 Potassium Chloride (KCl) 40 meq Q12HR PO 09/12/17 21:00 09/15/17 09:59 Fluconazole (Diflucan) 100 mg DAILY PO 09/13/17 09:00 09/15/17 09:59 Lidocaine HCl (Xylocaine 2% Jelly) 1 applic ONCE TOPICAL 09/12/17 20:00 09/15/17 19:59 09/13/17 18:06 Dextrose 1,000 ml @ 42 mls/hr [id number] IV 09/13/17 09:00 09/14/17 18:01 Calcium Carbonate (Oscal) 1,000 mg BID PO 09/13/17 09:00 09/15/17 09:59 Nystatin (Mycostatin Liq) 5 ml QID SWISH-SWAL 09/13/17 13:00 09/18/17 12:59 09/14/17 14:00 Lorazepam (Ativan) 0.5 mg Q6H PRN PO anxiety/ sleep 09/13/17 17:30 09/15/17 01:32 Objective Remarks GENERAL: Older male sitting up in bed eating breakfast in no obvious distress SKIN: Warm and dry. HEAD: Normocephalic. Somewhat hard of hearing EYES: No injection or drainage. NECK: Supple, trachea midline. CARDIOVASCULAR: Regular rate and rhythm without murmurs. RESPIRATORY: Clear anteriorly. Few scattered rales in the bases. GASTROINTESTINAL: Abdomen soft, non-tender, nondistended. : Scrotal edema. Garnett catheter to bedside bag with clear kris urine noted EXTREMITIES: No cyanosis. Significant swelling to bilateral lower extremities. Petechiae noted to lower extremities MUSCULOSKELETAL: Generalized weakness. NEUROLOGICAL: No obvious focal deficit. Awake, alert, and oriented x3. 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 He is currently receiving 1 unit packed red blood cells and will receive 1 unit platelets after that. We will recheck a CBC at 4 PM today to ensure that his levels are maintained. He did have some mild kris colored urine. It is our hope that his blood counts will begin to trend up beginning early next week. Attending Statement The exam, history, and the medical decision-making described in the above note were completed with the assistance of the mid-level provider. I reviewed and agree with the findings presented. I attest that I had a [id number] encounter with the patient on the same day, and personally performed and documented my assessment and findings in the medical record. doing well in spite of pancytopenia. will receive blood and platelets today. will give lasix with transfusions. will continue antibiotics until counts recover. situation discussed with family in detail and records reviewed. legs edematous but apparently improving. Tiara Gonzalez September 15, 2017 10:10 Claudio Serrano MD September 15, 2017 13:09
[2017-09-15] MEDS: SODIUM CHLORIDE 0.9% FLUSH 10 ML FLUSH IVF SCH (11:42)
[2017-09-15] MEDS ORDERED: SIMETHICONE 80 MG CHEWABLE TAB CHEW PRN (11:45)
[2017-09-15] MEDS ORDERED: FUROSEMIDE 20 MG/2 ML VIAL IV PUSH ONE ×2 (13:30→20:00)
[2017-09-15] MEDS ORDERED: POTASSIUM CHLORIDE 20 MEQ CONTROLLED RELEASE TAB PO ONE ×2 (13:30→20:00)
[2017-09-15] MEDS ORDERED: LIDOCAINE VISCOUS 2% SOLN 15 ML UDC SWISH-SPIT PRN (13:45)
[2017-09-15] MEDS: FILGRASTIM INJ 480 MCG in DEXTROSE 5% IN WATER INJ 50 ML IV SCH ×2 (14:35)
[2017-09-15] MEDS ORDERED: CALCIUM GLUCONATE INJ 1 GM in SODIUM CHLORIDE 0.9% INJ 100 ML IV ONE (15:15)
[2017-09-15] MEDS ORDERED: CALCIUM CARBONATE 1.25 GM (CA 500 MG) TAB PO ONE (15:15)
[2017-09-15] MEDS ORDERED: FUROSEMIDE 40 MG/4 ML VIAL IV PUSH ONE (15:15)
[2017-09-15] MEDS ORDERED: POTASSIUM BICARBONATE 25 MEQ EFFERVESCENT TAB PO ONE (15:15)
[2017-09-15] MEDS: NYSTAT/DIPHENHY/LIDO MOUTHWASH (Adult) 120ML SWISH-SPIT SCH ×3 (16:53→20:30)
[2017-09-15 18:54] LABS: MEAN CELL VOLUME 83.8 FL (80.0-100.0); MEAN CORPUSCULAR HEMOGLOBIN 29.7 PG (27.0-34.0); MEAN CORPUSCULAR HGB CONC 35.4 % (32.0-36.0); MEAN PLATELET VOLUME 6.7 FL (7.0-11.0); PLATELET COUNT 26 TH/MM3 (150-450); RED BLOOD COUNT 2.33 MIL/MM3 (4.50-5.90); RED CELL DISTRIBUTION WIDTH 14.4 % (11.6-17.2)
[2017-09-15 19:01] LABS: HEMOGLOBIN 6.9 GM/DL (13.0-17.0)
[2017-09-15 19:02] LABS: HEMATOCRIT 19.5 % (39.0-51.0)
[2017-09-15 19:39] LABS: LYMPHOCYTES 100 % (9-44)
[2017-09-15] MEDS ORDERED: SODIUM CHLOR 0.9% 250 ML INJ 250 ML IV ONE (20:00)
[2017-09-15] MEDS: DEXTROSE 5% IN WATE 1000ML INJ 1,000 ML IV SCH (20:45)
[2017-09-15] MEDS: POTASSIUM BICARBONATE 25 MEQ EFFERVESCENT TAB PO SCH (20:46)
[2017-09-15] MEDS: MORPHINE SULFATE 4 MG/ML INJ IV PUSH PRN (21:00)
[2017-09-16] VITALS (12 sets, daily range): BP systolic 125–142; BP diastolic 70–79; PULSE 74–98; RESP 18–22; TEMP 97.8–99; O2SAT 94–98
[2017-09-16] MEDS: AZTREONAM INJ 1,000 MG in SODIUM CHLORIDE 0.9% INJ 100 ML IV SCH ×3 (02:54→21:42)
[2017-09-16] MEDS: CHLORHEXIDINE GLUCONATE 2 % 1 PACK (2 CLOTHS) TOP SCH (02:58)
[2017-09-16] MEDS: NYSTATIN 100,000 U/GM PWD 15 GM BTL TOPICAL SCH ×3 (04:33→21:44)
[2017-09-16 06:22] LABS: HEMOGLOBIN 7.2 GM/DL (13.0-17.0); MEAN CELL VOLUME 83.6 FL (80.0-100.0); MEAN CORPUSCULAR HEMOGLOBIN 29.4 PG (27.0-34.0); MEAN CORPUSCULAR HGB CONC 35.2 % (32.0-36.0); MEAN PLATELET VOLUME 7.2 FL (7.0-11.0); RED BLOOD COUNT 2.44 MIL/MM3 (4.50-5.90); RED CELL DISTRIBUTION WIDTH 14.4 % (11.6-17.2)
[2017-09-16 06:42] LABS: HEMATOCRIT 20.4 % (39.0-51.0); PLATELET COUNT 16 TH/MM3 (150-450)
[2017-09-16 06:44] LABS: BICARBONATE 31.2 MEQ/L (21.0-32.0); CALCIUM 6.6 MG/DL (8.5-10.1); CREATININE 1.1 MG/DL (0.60-1.30); MAGNESIUM 1.6 MG/DL (1.5-2.5); PHOSPHORUS 2.1 MG/DL (2.5-4.9); RANDOM VANCOMYCIN 10.2 COMMENT
[2017-09-16 07:13] LABS: CALCIUM-PROTEIN CORRECTED 8.1 MG/DL (8.5-10.1); TOTAL PROTEIN 4.3 GM/DL (6.4-8.2)
--- NOTE | 2017-09-16 07:47 | HHI.PR ---
Subjective Remarks The patient is in bed he appears tired. Says he has sores in his mouth however Magic wash helps better and able to tolerate food now and also medications by mouth. No fever or chills no chest pain. Urine with orange color, has a good output. Continue Lasix. Still with significant edema. Electrolytes replaced. Hemoglobin today improved but not significantly. Plan to repeat labs. Objective Vitals Vital Signs Date Time Temp Pulse Resp B/P (MAP) Pulse Ox O2 Delivery O2 Flow Rate FiO2 09/16/17 04:00 Room Air 09/16/17 04:00 82 09/16/17 04:00 99.0 82 20 139/72 (94) 95 09/16/17 02:46 99.0 88 22 139/72 96 09/16/17 00:00 Room Air 09/16/17 00:00 89 09/16/17 00:00 98.1 86 20 125/70 (88) 95 09/15/17 23:39 98.1 86 125/70 95 09/15/17 23:17 97.7 93 18 106/44 95 09/15/17 20:00 98.7 101 20 162/82 (108) 95 09/15/17 20:00 100 09/15/17 20:00 Room Air 1.50 21 09/15/17 16:20 79 09/15/17 16:10 Nasal Cannula 09/15/17 16:00 97.8 78 18 154/76 (102) 98 09/15/17 14:48 98.0 78 18 156/82 98 09/15/17 14:31 98.0 76 18 140/72 97 09/15/17 12:20 98 09/15/17 11:00 97 Nasal Cannula 1.50 09/15/17 10:30 Nasal Cannula 09/15/17 08:20 85 09/15/17 08:00 97.8 80 18 146/74 (98) 97 I/O 09/15/17 09/15/17 09/15/17 09/16/17 09/16/17 09/16/17 07:00 15:00 23:00 07:00 15:00 23:00 Intake Total 1674 ml 550 ml 1839 ml 3300 ml Output Total 2400 ml 1800 ml 3200 ml Balance -726 ml 550 ml 39 ml 100 ml Intake Oral 720 ml 1450 ml 2800 ml IV Total 604 ml 150 ml 150 ml 100 ml Packed Cells 350 ml 400 ml 400 ml Platelets 239 ml Output Urine Total 2400 ml 1800 ml 3200 ml Bladder Scan Volume Amount 12 ml 12 ml # Bowel Movements 1 2 Result Diagram: 09/16/17 0445 09/16/17 0445 Imaging Last Impressions Chest X-Ray 09/05/17 0000 Signed Impressions: Service Date/Time: Tuesday, September 05, 2017 01:50 - CONCLUSION: 1. Right PICC line in superior vena cava. Subsegmental basilar airspace disease. No effusion or pneumothorax. Cory Camarena MD PICC Line Insertion 09/04/17 0600 Signed Impressions: Service Date/Time: Monday, September 04, 2017 15:12 - CONCLUSION: 1. Uncomplicated central venous Power PICC line placement. 2. The PICC line can be used immediately. Santy Burciaga Jr., MD Lumbar Puncture Fluoroscopy 09/04/17 0000 Signed Impressions: Service Date/Time: Monday, September 04, 2017 15:12 - CONCLUSION: Uncomplicated fluoroscopically guided lumbar puncture with pressures as above. Intrathecal methotrexate was administered. Santy Burciaga Jr., MD Chest CT 09/01/17 0000 Signed Impressions: Service Date/Time: Friday, September 01, 2017 16:48 - CONCLUSION: 1. No definite evidence for metastatic disease to the thorax. 2. 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 3. Scattered atelectasis and scarring in the lungs. 4. Moderate coronary calcifications. Cory Camarena MD Abdomen/Pelvis CT 09/01/17 0000 Signed Impressions: Service Date/Time: Friday, September 01, 2017 16:48 - CONCLUSION: 1. Post surgical changes with findings of cholecystectomy and prostatectomy. 2. Scattered diverticular disease of the colon without diverticulitis. 3. Lobulated cyst in the upper poles of both kidneys with some calcification on the left. 4. Retroperitoneal fat herniates through the left hemidiaphragm into the posterior left lung base. 5. No acute intraperitoneal or pelvic process to explain current clinical symptoms Gavin Lynn MD Bone Biopsy CT 08/30/17 1535 Signed Impressions: Service Date/Time: August 16:19 - CONCLUSION: 1. Uncomplicated CT guided bone marrow aspirate. 2. Uncomplicated CT guided bone marrow biopsy. Srikanth F. Tocci, MD Thoracic Spine CT 08/30/1799 Signed Impressions: Service Date/Time: August 01:37 - CONCLUSION: 1. No fracture, subluxation or other acute abnormality of the thoracic spine. 2. Scoliosis and mild multifocal degenerative changes as above. 3. Complex appearing cystic structures of the upper poles of both kidneys. Comparison to any previous outside facility studies is recommended to confirm chronicity and stability. Contrast enhanced study of the abdomen suggested if felt clinically indicated, preferably MRI if there are no contraindications. Tim Jones MD Lumbar Spine CT 08/30/1799 Signed Impressions: Service Date/Time: August 01:37 - CONCLUSION: 1. No acute fracture or acute subluxation of the lumbar spine. 2. 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 3. Mild spinal and bilateral foraminal stenosis at L4/L5. 4. Mild right and moderate left foraminal stenosis at L5/S1. 5. Benign vertebral body hemangioma of L1. No concerning lumbar spine bone lesion. Tim Jones MD Head CT 08/30/1799 Signed Impressions: Service Date/Time: August 01:37 - CONCLUSION: Small frontal maddy-falcine subdural blood is unchanged. Tim Jones MD Carotid Artery Ultrasound 08/30/17 0000 Signed Impressions: Service Date/Time: August 07:52 - CONCLUSION: 1. Diffuse calcified plaque throughout carotid arteries bilaterally with resultant moderate, 50-69%%, stenosis of the internal carotid arteries bilaterally and likely moderate stenosis of the left common carotid artery. 2. Antegrade vertebral artery flow bilaterally. Lopez Taylor MD Brain MRI 08/30/17 0000 Signed Impressions: Service Date/Time: August 09:27 - CONCLUSION: 1. Right frontal parafalcine abnormality on CT exam corresponds to a small meningioma. No definitive intra-or extra-axial hemorrhage. Lopez Taylor MD Objective Remarks General appearance: Very pleasant elderly gentleman, awake, weak, ill-appearing Cardiovascular: Regular heart sounds, no murmurs Respiratory: Clear bilateral, good air entry, no wheezes Abdomen: soft, non-tender, no rebound. Extremities: warm and well perfused, 3+ pitting edema : scrotal edema Procedures Bone marrow biopsy 08/30/2017. Line: PICC A/P Problem List: (1) Anemia ICD Code: D64.9 - Anemia, unspecified Status: Acute (2) Thrombocytopenia ICD Code: D69.6 - Thrombocytopenia, unspecified Status: Acute (3) GI bleed ICD Code: K92.2 - Gastrointestinal hemorrhage, unspecified Status: Acute (4) Back pain ICD Code: M54.9 - Dorsalgia, unspecified Status: Acute (5) History of DC (myocardial infarction) ICD Code: I25.2 - Old myocardial infarction (6) B-cell lymphoma ICD Code: C85.10 - Unspecified B-cell lymphoma, unspecified site Status: Acute (7) Abnormal head CT ICD Code: R93.0 - Abnormal findings on diagnostic imaging of skull and head, not elsewhere classified (8) Hearing loss ICD Code: H91.90 - Unspecified hearing loss, unspecified ear (9) Leukocytosis ICD Code: D72.829 - Elevated white blood cell count, unspecified Assessment and Plan 72y/o male with anemia + thrombocytopenia. History of prostate cancer, status post prostatectomy, coronary artery disease, s/p stent placement. 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 Septic shock - resolved E coli and strep viridans bacteremia - repeat blood cx are negative to date. Etiology of E coli in blood - No evidence of a UTI based on symptoms. ID consulted for further recommendation. Continue IV aztreonam for now.Echocardiogram shows an EF of 55-60% with moderate concentric left ventricular hypertrophy. No vegetation reported. Tumor lysis syndrome - Resolved. Allopurinol on hold Hyperkalemia now hypokalemia and hypocalcemia.-Continue to replace. Monitor closely. LUCA/hypernatremia- creatinine trending down, good urine output. Continue half normal saline due to hypernatremia. Monitor BMPs every 6 hours. Cautioned to not overcorrect quickly sodium levels. Encourage p.o. hydration (250ml water q4 -6hrs while awake). Nephrology following, appreciate recs. Pt has been started on diuril. Monitor Cr closely. Metabolic acidosis - improved Pancytopenia - worsening, requiring additional transfusion. Transfusion and G- CSF per oncology. Transfused 1 unit packed red blood cells last night Repeat HGB improved but not significantly, plan to repeat CBC at 8PM and transfuse if need Transfuse to keep platelets greater than 10,000, hemoglobin greater than 7.5 Continue Neupogen Burkitt's lymphoma receiving chemo. Management per hematology History of prostate cancer status post XRT Diarrhea - seems to have improved, monitor. Oral thrush give magic wash Scrotal edema/ LE edema. Give lasix 20 mg IV scheduled and albumin IV. Monitor UOP. , monitor closely kidney function. Replenish electrolytes. Scrotal small tears noted, pt having pain with urination due to urine touching those open tears and burning. Dr. Duron doesn't recommend placing a jensen as he is at high risk for bleeding due to his low plt count and also high risk for infection due to his neutropenia. Desitin cream and lidocaine jelly to be applied. Keep pt dry as much as possible. Place a condom catheter, will do but at this time, edema is too much and this cannot be done. Nystatin powder also ordered Patient however with significant scrotal edema and pain, has a Jensen placed with orange urine, fairly good outcome. Discharge Planning Continue to replace electrolytes. Monitor sodium levels closely. Transfuse per heme/onc recs. CM assisting with DC planning as family wishes to pursue care in [place] has a plane ticket for 09/22/17 Plan to repeat CBC at 8PM and transfuse if need Transfuse to keep platelets greater than 10,000, hemoglobin greater than 7.5 Discussed with the patient, nurse, family at bedside, Tiara Gonzalez hem/onc PA. Problem Qualifiers (1) Anemia: Qualified Codes: D64.9 - Anemia, unspecified (2) Back pain: Qualified Codes: M54.9 - Dorsalgia, unspecified (3) Hearing loss: Qualified Codes: H91.92 - Unspecified hearing loss, left ear (4) Leukocytosis: Qualified Codes: D72.829 - Elevated white blood cell count, unspecified Adelaide Grande MD September 16, 2017 07:47
[2017-09-16 08:58] LABS: LYMPHOCYTES 100 % (9-44)
[2017-09-16] MEDS ORDERED: FUROSEMIDE 20 MG/2 ML VIAL IV PUSH SCH (09:00)
[2017-09-16] MEDS: DOCUSATE SODIUM 50 MG/SENNA 8.6 MG TAB PO SCH ×2 (09:00→21:43)
[2017-09-16] MEDS: POTASSIUM BICARBONATE 25 MEQ EFFERVESCENT TAB PO SCH ×3 (09:00→21:42)
[2017-09-16] MEDS: CALCIUM CARBONATE 1.25 GM (CA 500 MG) TAB PO SCH ×3 (09:52→21:43)
[2017-09-16] MEDS: MULTIVITAMIN TAB PO SCH (09:52)
[2017-09-16] MEDS: CHLOROTHIAZIDE 250 MG TAB PO SCH ×2 (09:53→17:56)
[2017-09-16] MEDS: FLUCONAZOLE 100 MG TAB PO SCH (09:53)
[2017-09-16] MEDS: PANTOPRAZOLE SODIUM 40 MG VIAL IV PUSH SCH (09:53)
[2017-09-16] MEDS: SODIUM CHLORIDE 0.9% FLUSH 10 ML FLUSH IVF SCH (09:54)
[2017-09-16] MEDS: BUDESONIDE-FORMOTEROL 160/4.5 MCG INHALER INH SCH ×2 (09:55→21:44)
[2017-09-16] MEDS: SODIUM CHLORIDE 0.9% FLUSH 10 ML FLUSH IV FLUSH SCH ×2 (09:55→21:44)
[2017-09-16] MEDS: NYSTAT/DIPHENHY/LIDO MOUTHWASH (Adult) 120ML SWISH-SPIT SCH ×4 (09:55→21:43)
[2017-09-16] MEDS ORDERED: VANCOMYCIN INJ 2,000 MG in SODIUM CHLORID 0.9% 500 ML INJ 500 ML IV ONE (11:00)
--- NOTE | 2017-09-16 11:03 | PD.ONC.PN ---
Subjective Subjective Remarks Afebrile Patient reports overall he is feeling about the same as yesterday Happy to have walked around his room today with physical therapy States it felt "great" Noted that the swelling in his legs is starting to go down Objective Data Date Time Temp Pulse Resp B/P (MAP) Pulse Ox O2 Delivery O2 Flow Rate FiO2 09/16/17 08:56 95 21 09/16/17 04:00 Room Air 09/16/17 04:00 82 09/16/17 04:00 99.0 82 20 139/72 (94) 95 09/16/17 02:46 99.0 88 22 139/72 96 09/16/17 00:00 Room Air 09/16/17 00:00 89 09/16/17 00:00 98.1 86 20 125/70 (88) 95 09/15/17 23:39 98.1 86 125/70 95 09/15/17 23:17 97.7 93 18 106/44 95 09/15/17 20:00 98.7 101 20 162/82 (108) 95 09/15/17 20:00 100 09/15/17 20:00 Room Air 1.50 21 09/15/17 16:20 79 09/15/17 16:10 Nasal Cannula 09/15/17 16:00 97.8 78 18 154/76 (102) 98 09/15/17 14:48 98.0 78 18 156/82 98 09/15/17 14:31 98.0 76 18 140/72 97 09/15/17 12:20 98 09/16/17 09/16/17 09/16/17 07:00 15:00 23:00 Intake Total 3300 ml Output Total 3200 ml Balance 100 ml Result Diagram: 09/16/17 0445 09/16/17 0445 Laboratory Results Laboratory Tests Test 09/15/17 18:30 09/16/17 04:45 White Blood Count 0.0 TH/MM3 0.0 TH/MM3 Red Blood Count 2.33 MIL/MM3 2.44 MIL/MM3 Hemoglobin 6.9 GM/DL 7.2 GM/DL Hematocrit 19.5 % 20.4 % Mean Corpuscular Volume 83.8 FL 83.6 FL Mean Corpuscular Hemoglobin 29.7 PG 29.4 PG Mean Corpuscular Hemoglobin Concent 35.4 % 35.2 % Red Cell Distribution Width 14.4 % 14.4 % Platelet Count 26 TH/MM3 16 TH/MM3 Mean Platelet Volume 6.7 FL 7.2 FL CBC Comment AUTO DIFF AUTO DIFF Differential Total Cells Counted 2 4 Lymphocytes % 100 % 100 % Differential Comment FINAL DIFF MANUAL FINAL DIFF MANUAL Platelet Estimate RARE RARE Platelet Morphology Comment NORMAL NORMAL Neutrophils # (Manual) 0.0 TH/MM3 Red Cell Morphology Comment NORMAL Blood Urea Nitrogen 42 MG/DL Creatinine 1.10 MG/DL Random Glucose 169 MG/DL Total Protein 4.3 GM/DL Calcium Level 6.6 MG/DL Phosphorus Level 2.1 MG/DL Magnesium Level 1.6 MG/DL Sodium Level 146 MEQ/L Potassium Level 3.0 MEQ/L Chloride Level 109 MEQ/L Carbon Dioxide Level 31.2 MEQ/L Anion Gap 6 MEQ/L Estimat Glomerular Filtration Rate 66 ML/MIN Protein Corrected Calcium 8.1 MG/DL Random Vancomycin Level 10.2 COMMENT Administered Medications Medications (Trade) Dose Ordered Sig/Robert Route PRN Reason Start Time Stop Time Status Last Admin Dose Admin Sodium Chloride (NS Flush) 2 ml UNSCH PRN IV FLUSH FLUSH AFTER USING IV ACCESS 08/29/17 15:45 09/08/17 23:42 Sodium Chloride (NS Flush) 2 ml BID IV FLUSH 08/29/17 21:00 09/16/17 09:55 Pantoprazole Sodium (Protonix Inj) 40 mg DAILY IV PUSH 08/30/17 09:00 09/16/17 09:53 Ondansetron HCl (Zofran Inj) 4 mg Q6H PRN IV PUSH NAUSEA OR VOMITING 08/29/17 16:00 09/09/17 10:08 Albuterol/ Ipratropium (Duoneb Neb) 1 ampule Q2HR NEB PRN INH WHEEZING 08/29/17 16:00 09/04/17 23:32 Chlorhexidine Gluconate (Chlorhexidine 2% Cloth) Taper DAILY@04 TOP 08/30/17 04:00 08/26/18 03:59 09/13/17 05:13 Senna/Docusate Sodium (Madina-Colace) 1 tab BID PO 08/29/17 21:00 09/15/17 09:59 Albuterol Sulfate (Proair Hfa Inh) 2 puff Q6H PRN INH SHORTNESS OF BREATH 08/29/17 18:00 09/13/17 11:05 Amlodipine Besylate (Norvasc) 10 mg DAILY PO 08/30/17 09:00 Future Hold 09/05/17 10:12 Budesonide/ Formoterol Fumarate (Symbicort 160-4.5 Mcg Inh) 2 puff BID INH 08/29/17 21:00 09/16/17 09:55 Ramipril (Altace) 10 mg DAILY PO 08/30/17 14:00 Future Hold 09/05/17 10:12 Morphine Sulfate (Morphine Inj) 2 mg Q4H PRN IV PUSH Pain 3 to 6 09/01/17 16:00 09/14/17 00:54 Morphine Sulfate (Morphine Inj) 4 mg Q4H PRN IV PUSH Pain 7 to 10 09/01/17 16:00 09/15/17 21:00 Sodium Chloride (NS Flush) DAILY IVF 09/05/17 09:00 09/16/17 09:54 Heparin Sodium (Porcine) (Heparin Central Flush) DAILY IV FLUSH 09/05/17 09:00 09/16/17 09:53 Sodium Chloride (NS Flush) UNSCH PRN IVF SEE PROTOCOL 09/04/17 16:00 09/10/17 21:58 Sodium Chloride (NS Flush) UNSCH PRN IVF SEE PROTOCOL 09/04/17 16:00 09/10/17 21:59 Norepinephrine Bitartrate 250 ml @ 7.5 mls/hr TITRATE PRN IV Blood pressure management 09/06/17 10:15 09/08/17 05:40 Aztreonam 1000 mg/ Sodium Chloride 100 ml @ 200 mls/hr Q8H IV 09/06/17 12:00 09/16/17 02:54 Filgrastim 480 mcg/Dextrose 51.6 ml @ 100 mls/hr DAILY@14 IV 09/11/17 21:00 09/15/17 14:35 Chlorothiazide (Diuril) 250 mg BID@ PO 09/11/17 20:00 09/16/17 09:53 Zinc Oxide (Desitin 40% Oint) 1 applic UNSCH PRN TOPICAL DIAPER RASH 09/12/17 09:30 09/13/17 18:07 Nystatin (Mycostatin Powder) 1 applic Q8HR TOPICAL 09/12/17 09:30 09/16/17 04:33 Fluconazole (Diflucan) 100 mg DAILY PO 09/13/17 09:00 09/16/17 09:53 Dextrose 1,000 ml @ 42 mls/hr [id number] IV 09/13/17 09:00 09/15/17 20:45 Calcium Carbonate (Oscal) 1,000 mg BID PO 09/13/17 09:00 09/16/17 09:52 Lorazepam (Ativan) 0.5 mg Q6H PRN PO anxiety/ sleep 09/13/17 17:30 09/15/17 01:32 Multi-Ingredient Mouthwash/Gargle (Magic Mouthwash Adult Liq) 10 ml QID SWISH-SPIT 09/15/17 13:00 09/16/17 09:55 Potassium Bicarbonate (Effer-K Eff) 50 meq BID PO 09/15/17 21:00 09/16/17 10:26 Furosemide (Lasix Inj) 20 mg DAILY IV PUSH 09/16/17 09:00 09/16/17 09:54 Multivitamins (Theragran) 1 tab DAILY PO 09/16/17 09:00 09/16/17 09:52 Sodium Chloride 250 ml @ 15 mls/hr ONCE ONCE IV 09/15/17 20:00 09/16/17 12:39 09/15/17 20:00 Objective Remarks GENERAL: Older male sitting up in chair at bedside talking with family SKIN: Warm and dry. HEAD: Normocephalic. Somewhat hard of hearing EYES: No injection or drainage. NECK: Supple, trachea midline. CARDIOVASCULAR: Regular rate and rhythm without murmurs. RESPIRATORY: Clear posteriorly, mildly diminished in the bases. Breathing unlabored at rest. GASTROINTESTINAL: Abdomen soft, non-tender, nondistended. : Scrotal edema. Garnett catheter to bedside bag with clear kris urine noted EXTREMITIES: No cyanosis. Significant swelling to bilateral lower extremities, but this is improving. Petechiae noted to lower extremities MUSCULOSKELETAL: Generalized weakness. NEUROLOGICAL: No obvious focal deficit. Awake, alert, and oriented x3. 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 Today his hemoglobin is 7.2 and his platelets are 16,000. We anticipate continued transfusions for the next few days. Check CBC in a.m. Attending Statement The exam, history, and the medical decision-making described in the above note were completed with the assistance of the mid-level provider. I reviewed and agree with the findings presented. I attest that I had a [id number] encounter with the patient on the same day, and personally performed and documented my assessment and findings in the medical record. in spite of low counts he is doing well without fevers and benign exam. I explained to patient it will probably take another weeks to see counts return. nothing else to do and will continue supportive care. Tiara Gonzalez September 16, 2017 11:03 Claudio Serrano MD September 16, 2017 16:52
[2017-09-16] MEDS: FILGRASTIM INJ 480 MCG in DEXTROSE 5% IN WATER INJ 50 ML IV SCH ×2 (14:29)
[2017-09-16] MEDS: DEXTROSE 5% IN WATE 1000ML INJ 1,000 ML IV SCH (21:59)
[2017-09-17] VITALS (14 sets, daily range): BP systolic 112–141; BP diastolic 55–74; PULSE 79–94; RESP 16–19; TEMP 98–99.1; O2SAT 94–96
[2017-09-17] MEDS: CHLORHEXIDINE GLUCONATE 2 % 1 PACK (2 CLOTHS) TOP SCH (03:30)
[2017-09-17] MEDS: AZTREONAM INJ 1,000 MG in SODIUM CHLORIDE 0.9% INJ 100 ML IV SCH ×3 (03:34→20:39)
[2017-09-17] MEDS: LORazepam 0.5 MG TAB PO PRN (03:34)
[2017-09-17] MEDS: NYSTATIN 100,000 U/GM PWD 15 GM BTL TOPICAL SCH ×3 (05:44→22:00)
[2017-09-17 06:11] LABS: MEAN CELL VOLUME 83.4 FL (80.0-100.0); MEAN CORPUSCULAR HGB CONC 35.9 % (32.0-36.0); MEAN PLATELET VOLUME 6.5 FL (7.0-11.0); RED BLOOD COUNT 2.17 MIL/MM3 (4.50-5.90); RED CELL DISTRIBUTION WIDTH 14.3 % (11.6-17.2)
[2017-09-17 06:25] LABS: HEMATOCRIT 18.1 % (39.0-51.0); HEMOGLOBIN 6.5 GM/DL (13.0-17.0)
[2017-09-17 06:26] LABS: PLATELET COUNT 7 TH/MM3 (150-450)
[2017-09-17 06:29] LABS: CALCIUM 6.9 MG/DL (8.5-10.1); CREATININE 1.13 MG/DL (0.60-1.30)
[2017-09-17 06:30] LABS: RANDOM VANCOMYCIN 16.7 COMMENT
[2017-09-17 06:46] LABS: CALCIUM-PROTEIN CORRECTED 8.6 MG/DL (8.5-10.1); TOTAL PROTEIN 4.1 GM/DL (6.4-8.2)
--- NOTE | 2017-09-17 08:06 | HHI.PR ---
Subjective Remarks Low PLT and HGB transfuse Has pain all over and says he doesn't feel good in any position No chest pain or sob. Feels very tired Cachectic and weak Not eatign much Has rash/ excoriations in his groin getting worse will consult wound care No fever ro chills No cough Objective Vitals Vital Signs Date Time Temp Pulse Resp B/P (MAP) Pulse Ox O2 Delivery O2 Flow Rate FiO2 09/17/17 04:06 98.2 93 17 139/74 (95) 94 09/17/17 04:00 79 09/17/17 03:37 94 Room Air 09/17/17 01:00 98.3 92 16 122/55 (77) 96 09/17/17 01:00 96 Room Air 09/17/17 00:00 89 09/16/17 21:34 94 Room Air 09/16/17 21:34 98.4 90 18 131/72 (91) 94 09/16/17 20:00 85 09/16/17 18:15 98.8 95 18 135/79 (97) 97 09/16/17 16:42 98 09/16/17 15:57 Room Air 09/16/17 13:01 Nasal Cannula 09/16/17 12:20 83 09/16/17 12:00 97.8 82 20 138/72 (94) 97 09/16/17 10:00 Nasal Cannula 09/16/17 09:30 Nasal Cannula 09/16/17 08:56 95 21 09/16/17 08:20 91 I/O 09/16/17 09/16/17 09/16/17 09/17/17 09/17/17 09/17/17 07:00 15:00 23:00 07:00 15:00 23:00 Intake Total 3300 ml 400 ml 1300 ml 916 ml Output Total 3200 ml 3025 ml 1200 ml Balance 100 ml 400 ml -1725 ml -284 ml Intake Oral 2800 ml 1200 ml 480 ml IV Total 100 ml 400 ml 100 ml 436 ml Packed Cells 400 ml Output Urine Total 3200 ml 3025 ml 1200 ml Bladder Scan Volume Amount 12 ml # Bowel Movements 1 Result Diagram: 09/17/17 0530 09/17/17 0530 Imaging Last Impressions Chest X-Ray 09/05/17 0000 Signed Impressions: Service Date/Time: Tuesday, September 05, 2017 01:50 - CONCLUSION: 1. Right PICC line in superior vena cava. Subsegmental basilar airspace disease. No effusion or pneumothorax. Cory Camarena MD PICC Line Insertion 09/04/17 0600 Signed Impressions: Service Date/Time: Monday, September 04, 2017 15:12 - CONCLUSION: 1. Uncomplicated central venous Power PICC line placement. 2. The PICC line can be used immediately. Santy Burciaga Jr., MD Lumbar Puncture Fluoroscopy 09/04/17 0000 Signed Impressions: Service Date/Time: Monday, September 04, 2017 15:12 - CONCLUSION: Uncomplicated fluoroscopically guided lumbar puncture with pressures as above. Intrathecal methotrexate was administered. Santy Burciaga Jr., MD Chest CT 09/01/17 0000 Signed Impressions: Service Date/Time: Friday, September 01, 2017 16:48 - CONCLUSION: 1. No definite evidence for metastatic disease to the thorax. 2. 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 3. Scattered atelectasis and scarring in the lungs. 4. Moderate coronary calcifications. Cory Camarena MD Abdomen/Pelvis CT 09/01/17 0000 Signed Impressions: Service Date/Time: Friday, September 01, 2017 16:48 - CONCLUSION: 1. Post surgical changes with findings of cholecystectomy and prostatectomy. 2. Scattered diverticular disease of the colon without diverticulitis. 3. Lobulated cyst in the upper poles of both kidneys with some calcification on the left. 4. Retroperitoneal fat herniates through the left hemidiaphragm into the posterior left lung base. 5. No acute intraperitoneal or pelvic process to explain current clinical symptoms Gavin Lynn MD Bone Biopsy CT 08/30/17 1535 Signed Impressions: Service Date/Time: August 16:19 - CONCLUSION: 1. Uncomplicated CT guided bone marrow aspirate. 2. Uncomplicated CT guided bone marrow biopsy. Srikanth Ambrosio MD Thoracic Spine CT 08/30/17 0100 Signed Impressions: Service Date/Time: August 01:37 - CONCLUSION: 1. No fracture, subluxation or other acute abnormality of the thoracic spine. 2. Scoliosis and mild multifocal degenerative changes as above. 3. Complex appearing cystic structures of the upper poles of both kidneys. Comparison to any previous outside facility studies is recommended to confirm chronicity and stability. Contrast enhanced study of the abdomen suggested if felt clinically indicated, preferably MRI if there are no contraindications. Tim Jones MD Lumbar Spine CT 08/30/1799 Signed Impressions: Service Date/Time: August 01:37 - CONCLUSION: 1. No acute fracture or acute subluxation of the lumbar spine. 2. 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 3. Mild spinal and bilateral foraminal stenosis at L4/L5. 4. Mild right and moderate left foraminal stenosis at L5/S1. 5. Benign vertebral body hemangioma of L1. No concerning lumbar spine bone lesion. Tim Jones MD Head CT 08/30/1799 Signed Impressions: Service Date/Time: August 01:37 - CONCLUSION: Small frontal maddy-falcine subdural blood is unchanged. Tim Jones MD Carotid Artery Ultrasound 08/30/17 0000 Signed Impressions: Service Date/Time: August 07:52 - CONCLUSION: 1. Diffuse calcified plaque throughout carotid arteries bilaterally with resultant moderate, 50-69%%, stenosis of the internal carotid arteries bilaterally and likely moderate stenosis of the left common carotid artery. 2. Antegrade vertebral artery flow bilaterally. Lopez Taylor MD Brain MRI 08/30/17 0000 Signed Impressions: Service Date/Time: August 09:27 - CONCLUSION: 1. Right frontal parafalcine abnormality on CT exam corresponds to a small meningioma. No definitive intra-or extra-axial hemorrhage. Lopez Taylor MD Objective Remarks General appearance: Very pleasant elderly gentleman, awake, weak, ill-appearing Cardiovascular: Regular heart sounds, no murmurs Respiratory: Clear bilateral, good air entry, no wheezes Abdomen: soft, non-tender, no rebound. Extremities: warm and well perfused, 3+ pitting edema : scrotal edema Procedures Bone marrow biopsy 08/30/2017. Line: PICC A/P Problem List: (1) Anemia ICD Code: D64.9 - Anemia, unspecified Status: Acute (2) Thrombocytopenia ICD Code: D69.6 - Thrombocytopenia, unspecified Status: Acute (3) GI bleed ICD Code: K92.2 - Gastrointestinal hemorrhage, unspecified Status: Acute (4) Back pain ICD Code: M54.9 - Dorsalgia, unspecified Status: Acute (5) History of MT (myocardial infarction) ICD Code: I25.2 - Old myocardial infarction (6) B-cell lymphoma ICD Code: C85.10 - Unspecified B-cell lymphoma, unspecified site Status: Acute (7) Abnormal head CT ICD Code: R93.0 - Abnormal findings on diagnostic imaging of skull and head, not elsewhere classified (8) Hearing loss ICD Code: H91.90 - Unspecified hearing loss, unspecified ear (9) Leukocytosis ICD Code: D72.829 - Elevated white blood cell count, unspecified Assessment and Plan 72y/o male with anemia + thrombocytopenia. History of prostate cancer, status post prostatectomy, coronary artery disease, s/p stent placement. 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 Septic shock - resolved E coli and strep viridans bacteremia - repeat blood cx are negative to date. Etiology of E coli in blood - No evidence of a UTI based on symptoms. ID consulted for further recommendation. Continue IV aztreonam for now.Echocardiogram shows an EF of 55-60% with moderate concentric left ventricular hypertrophy. No vegetation reported. Tumor lysis syndrome - Resolved. Allopurinol on hold Hyperkalemia now hypokalemia and hypocalcemia.-Continue to replace. Monitor closely. LUCA/hypernatremia- creatinine trending down, good urine output. Continue half normal saline due to hypernatremia. Monitor BMPs every 6 hours. Cautioned to not overcorrect quickly sodium levels. Encourage p.o. hydration (250ml water q4 -6hrs while awake). Nephrology following, appreciate recs. Pt has been started on diuril. Monitor Cr closely. Metabolic acidosis - improved Pancytopenia - worsening, requiring additional transfusion. Transfusion and G- CSF per oncology. Transfuse 1 unit packed red blood cells and 1U PLT today 09/17/17 Transfuse to keep platelets greater than 10,000, hemoglobin greater than 7.5 Continue Neupogen Burkitt's lymphoma receiving chemo. Management per hematology History of prostate cancer status post XRT Diarrhea - seems to have improved, monitor. Oral thrush give magic wash Scrotal edema/escoriations worsening LE edema. Give lasix 20 mg IV scheduled and albumin IV. Monitor UOP. , monitor closely kidney function. Replenish electrolytes. Consult wound care Scrotal small tears noted, pt having pain with urination due to urine touching those open tears and burning. Dr. Duron doesn't recommend placing a jensen as he is at high risk for bleeding due to his low plt count and also high risk for infection due to his neutropenia. Desitin cream and lidocaine jelly to be applied. Keep pt dry as much as possible. Place a condom catheter, will do but at this time, edema is too much and this cannot be done. Nystatin powder also ordered Patient however with significant scrotal edema and pain, has a Jensen placed with orange urine, fairly good outcome. Discharge Planning Continue to replace electrolytes. Monitor sodium levels closely. Transfuse per heme/onc recs. CM assisting with DC planning as family wishes to pursue care in [place] has a plane ticket for 09/22/17 Transfuse 1U PRBC and 1U PLT today again 09/17/17 Transfuse to keep platelets greater than 10,000, hemoglobin greater than 7.5 Discussed with the patient, nurse, family at bedside, Tricia Davila hem/onc PA. Problem Qualifiers (1) Anemia: Qualified Codes: D64.9 - Anemia, unspecified (2) Back pain: Qualified Codes: M54.9 - Dorsalgia, unspecified (3) Hearing loss: Qualified Codes: H91.92 - Unspecified hearing loss, left ear (4) Leukocytosis: Qualified Codes: D72.829 - Elevated white blood cell count, unspecified Adelaide Grande MD September 17, 2017 08:06
[2017-09-17] MEDS ORDERED: SODIUM CHLOR 0.9% 250 ML INJ 250 ML IV ONE (08:30)
[2017-09-17 08:55] LABS: LYMPHOCYTES 50 % (9-44); MONOCYTES 50 % (0-8)
[2017-09-17] MEDS: DOCUSATE SODIUM 50 MG/SENNA 8.6 MG TAB PO SCH ×2 (09:00→20:38)
[2017-09-17] MEDS: BUDESONIDE-FORMOTEROL 160/4.5 MCG INHALER INH SCH ×2 (09:00→23:07)
[2017-09-17] MEDS ORDERED: POTASSIUM CHLORIDE 25 MEQ EFFERVESCENT TAB PO ONE (10:00)
--- NOTE | 2017-09-17 10:09 | PD.ONC.PN ---
Subjective Subjective Remarks Afebrile overnight. patient resting in bed complaining of swelling and overall uncomfortableness d/ t edema. He is frustrated with being in the hospital and wants to know when he will be able to leave and go back to [place]. Objective Data Date Time Temp Pulse Resp B/P (MAP) Pulse Ox O2 Delivery O2 Flow Rate FiO2 09/17/17 04:06 98.2 93 17 139/74 (95) 94 09/17/17 04:00 79 09/17/17 03:37 94 Room Air 09/17/17 01:00 98.3 92 16 122/55 (77) 96 09/17/17 01:00 96 Room Air 09/17/17 00:00 89 09/16/17 21:34 94 Room Air 09/16/17 21:34 98.4 90 18 131/72 (91) 94 09/16/17 20:00 85 09/16/17 18:15 98.8 95 18 135/79 (97) 97 09/16/17 16:42 98 09/16/17 15:57 Room Air 09/16/17 13:01 Nasal Cannula 09/16/17 12:20 83 09/16/17 12:00 97.8 82 20 138/72 (94) 97 09/17/17 09/17/17 09/17/17 07:00 15:00 23:00 Intake Total 916 ml Output Total 1200 ml Balance -284 ml Result Diagram: 09/17/17 0530 09/17/17 0530 Laboratory Results Laboratory Tests Test 09/17/17 05:30 White Blood Count 0.0 TH/MM3 Red Blood Count 2.17 MIL/MM3 Hemoglobin 6.5 GM/DL Hematocrit 18.1 % Mean Corpuscular Volume 83.4 FL Mean Corpuscular Hemoglobin 30.0 PG Mean Corpuscular Hemoglobin Concent 35.9 % Red Cell Distribution Width 14.3 % Platelet Count 7 TH/MM3 Mean Platelet Volume 6.5 FL CBC Comment AUTO DIFF Differential Total Cells Counted 2 Lymphocytes % 50 % Monocytes % 50 % Neutrophils # (Manual) 0.0 TH/MM3 Differential Comment FINAL DIFF MANUAL Platelet Estimate RARE Platelet Morphology Comment NORMAL Blood Urea Nitrogen 39 MG/DL Creatinine 1.13 MG/DL Random Glucose 140 MG/DL Total Protein 4.1 GM/DL Calcium Level 6.9 MG/DL Sodium Level 145 MEQ/L Potassium Level 3.0 MEQ/L Chloride Level 106 MEQ/L Carbon Dioxide Level 31.0 MEQ/L Anion Gap 8 MEQ/L Estimat Glomerular Filtration Rate 64 ML/MIN Protein Corrected Calcium 8.6 MG/DL Random Vancomycin Level 16.7 COMMENT Administered Medications Medications (Trade) Dose Ordered Sig/Robert Route PRN Reason Start Time Stop Time Status Last Admin Dose Admin Sodium Chloride (NS Flush) 2 ml UNSCH PRN IV FLUSH FLUSH AFTER USING IV ACCESS 08/29/17 15:45 09/08/17 23:42 Sodium Chloride (NS Flush) 2 ml BID IV FLUSH 08/29/17 21:00 09/16/17 21:44 Pantoprazole Sodium (Protonix Inj) 40 mg DAILY IV PUSH 08/30/17 09:00 09/16/17 09:53 Ondansetron HCl (Zofran Inj) 4 mg Q6H PRN IV PUSH NAUSEA OR VOMITING 08/29/17 16:00 09/09/17 10:08 Albuterol/ Ipratropium (Duoneb Neb) 1 ampule Q2HR NEB PRN INH WHEEZING 08/29/17 16:00 09/04/17 23:32 Chlorhexidine Gluconate (Chlorhexidine 2% Cloth) Taper DAILY@04 TOP 08/30/17 04:00 08/26/18 03:59 09/13/17 05:13 Senna/Docusate Sodium (Madina-Colace) 1 tab BID PO 08/29/17 21:00 09/15/17 09:59 Albuterol Sulfate (Proair Hfa Inh) 2 puff Q6H PRN INH SHORTNESS OF BREATH 08/29/17 18:00 09/13/17 11:05 Amlodipine Besylate (Norvasc) 10 mg DAILY PO 08/30/17 09:00 Future Hold 09/05/17 10:12 Budesonide/ Formoterol Fumarate (Symbicort 160-4.5 Mcg Inh) 2 puff BID INH 08/29/17 21:00 09/16/17 21:44 Ramipril (Altace) 10 mg DAILY PO 08/30/17 14:00 Future Hold 09/05/17 10:12 Morphine Sulfate (Morphine Inj) 2 mg Q4H PRN IV PUSH BREAKTHROUGH PAIN 09/01/17 16:00 09/14/17 00:54 Sodium Chloride (NS Flush) DAILY IVF 09/05/17 09:00 09/16/17 09:54 Heparin Sodium (Porcine) (Heparin Central Flush) DAILY IV FLUSH 09/05/17 09:00 09/16/17 09:53 Sodium Chloride (NS Flush) UNSCH PRN IVF SEE PROTOCOL 09/04/17 16:00 09/10/17 21:58 Sodium Chloride (NS Flush) UNSCH PRN IVF SEE PROTOCOL 09/04/17 16:00 09/10/17 21:59 Norepinephrine Bitartrate 250 ml @ 7.5 mls/hr TITRATE PRN IV Blood pressure management 09/06/17 10:15 09/08/17 05:40 Aztreonam 1000 mg/ Sodium Chloride 100 ml @ 200 mls/hr Q8H IV 09/06/17 12:00 09/17/17 03:34 Filgrastim 480 mcg/Dextrose 51.6 ml @ 100 mls/hr DAILY@14 IV 09/11/17 21:00 09/16/17 14:29 Chlorothiazide (Diuril) 250 mg BID@ PO 09/11/17 20:00 09/16/17 17:56 Zinc Oxide (Desitin 40% Oint) 1 applic UNSCH PRN TOPICAL DIAPER RASH 09/12/17 09:30 09/13/17 18:07 Nystatin (Mycostatin Powder) 1 applic Q8HR TOPICAL 09/12/17 09:30 09/17/17 05:44 Fluconazole (Diflucan) 100 mg DAILY PO 09/13/17 09:00 09/16/17 09:53 Calcium Carbonate (Oscal) 1,000 mg BID PO 09/13/17 09:00 09/16/17 21:43 Lorazepam (Ativan) 0.5 mg Q6H PRN PO anxiety/ sleep 09/13/17 17:30 09/17/17 03:34 Multi-Ingredient Mouthwash/Gargle (Magic Mouthwash Adult Liq) 10 ml QID SWISH-SPIT 09/15/17 13:00 09/16/17 21:43 Potassium Bicarbonate (Effer-K Eff) 50 meq BID PO 09/15/17 21:00 09/16/17 21:42 Calcium Carbonate (Oscal) 500 mg DAILY PO 09/16/17 09:00 09/16/17 14:31 Multivitamins (Theragran) 1 tab DAILY PO 09/16/17 09:00 09/16/17 09:52 Oxycodone HCl (Roxicodone) 5 mg Q4H PRN PO pain 2-5 09/16/17 11:45 09/16/17 21:43 Objective Remarks GENERAL: Elderly male, sitting up in bed SKIN: Warm and dry. HEAD: Normocephalic. EYES: No injection or drainage. NECK: Supple, trachea midline. CARDIOVASCULAR: Regular rate and rhythm RESPIRATORY: Breath sounds equal bilaterally. No accessory muscle use. GASTROINTESTINAL: Abdomen soft, non-tender, nondistended. EXTREMITIES: No cyanosis. extensive edema in all extremities. NEUROLOGICAL: awake and alert. normal speech. 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 ++also has bone pain, back pain, elevated LDH, as well as the sweats that suggests a more systemic manifestation of bone marrow disorder. ++ Nucleated red cells seen on peripheral smear. no acute blasts. CT C/A/P showing no LAD Discussed w/ oncologist in [facility] pt's home town coordination of treatment when he leaves here. He has flight schedule 09/22/17. agreed to assume care, plan to fax records, appt to be made for the Sunday after his return home. 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 09/04: PICC line placement today, start R-EPOCH, give IT MTX. 09/05: Rituxan infusion complete. patient in TLS. transferred to ICU. commercial attorney consulted. 09/06: start EPOCH, window closing as patient is now leukopenic. give blood and platelets. 09/07: give D2 EPOCH. give 1 unit pRBC, check repeat H/H. 09/08: give D3 EPOCH. 1 unit pRBC, 1 unit platelets. 09/09: D4 EPOCH, 2 units platelets. 09/10: D5--finish 4th bag of EPOCH, give Cytoxan this evening. 09/13/17: Continue G-CSF support 09/14/17: Transfuse 2 units packed red blood cells, 1 unit platelets 09/17/17: continue Neupogen. give 1 unit prbc 1 unit platelets. (2) Anasarca ICD Codes: R60.1 - Generalized edema Plan: --nephrology following. Assessment 72y/o male with new diagnosis of Burkitt's lymphoma in the bone marrow given R- EPOCH chemo Plan 1. give 1 unit pRBC and 1 unit platelets 2. consult wound care for skin breakdown on scrotum, could become a possible source of infection in this profoundly immunocompromised patient. 3. continue supportive care, monitor for fever. Attending Statement The exam, history, and the medical decision-making described in the above note were completed with the assistance of the mid-level provider. I reviewed and agree with the findings presented. I attest that I had a [id number] encounter with the patient on the same day, and personally performed and documented my assessment and findings in the medical record. Events over the weekend noted. Still pancytopenic but afebrile. Thrush still present, mucositis limits his oral intake, family supportive to eat and drink. Discussed with ID to also start Acyclovir, also nystatin. Appreciate wound care - needs the air mattress to prevent decubitus.. Pt ambulating well. Legs less swollen. Afebrile.. Laurita Davila September 17, 2017 10:09 Shahla Duron MD September 17, 2017 19:44
--- NOTE | 2017-09-17 10:20 | HHI.NPPN ---
Subjective General Problems: Edema Renal Failure: Acute History of Present Illness Patient is a 72 year old male with a past medical history of prostate cancer, asthma, gastroesophageal reflux, Muñoz's esophagus,hypertension, new anemia, new thrombocytopenia, rotator cuff injury, and back pain. 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 Patient was receiving Rituxan last night and developed a reaction with low grade temperature, pain, and tremor. Plan to transfer patient to intensive care unit as patient is at risk for fluid overload with blood transfusions and acute kidney injury. Nephrology is consulted for acute kidney injury with creatinine of 2.44 with a admission creatinine of 0.99. HGB is low at 7.2, Plt of 27, NA 148, CO2 14.5. Patient is resting comfortably now with his only complaint is that is dizzy with ambulation. Additional Remarks Hemoglobin and platelets low. Denies any shortness of breath. Bilateral lower extremity edema. Poor appetite. (Janet Ribeiro) Review of Systems Respiratory Respiratory Remarks Denies any SOB (Janet Ribeiro) Cardiovascular Cardiac: Edema Cardiac Remarks Denies any CP (Janet Ribeiro) Gastrointestinal GI Remarks Denies any abdominal pain (Janet Ribeiro) Objective Data Data Vital Signs Date Time Temp Pulse Resp B/P (MAP) Pulse Ox O2 Delivery O2 Flow Rate FiO2 09/17/17 04:06 98.2 93 17 139/74 (95) 94 09/17/17 04:00 79 09/17/17 03:37 94 Room Air 09/17/17 01:00 98.3 92 16 122/55 (77) 96 09/17/17 01:00 96 Room Air 09/17/17 00:00 89 09/16/17 21:34 94 Room Air 09/16/17 21:34 98.4 90 18 131/72 (91) 94 09/16/17 20:00 85 09/16/17 18:15 98.8 95 18 135/79 (97) 97 09/16/17 16:42 98 09/16/17 15:57 Room Air 09/16/17 13:01 Nasal Cannula 09/16/17 12:20 83 09/16/17 12:00 97.8 82 20 138/72 (94) 97 (Janet RibeiroP) -: 09/17/17 0530 09/17/17 0530 Imaging Last Impressions Chest X-Ray 09/05/17 0000 Signed Impressions: Service Date/Time: Tuesday, September 05, 2017 01:50 - CONCLUSION: 1. Right PICC line in superior vena cava. Subsegmental basilar airspace disease. No effusion or pneumothorax. Cory Camarena MD PICC Line Insertion 09/04/17 0600 Signed Impressions: Service Date/Time: Monday, September 04, 2017 15:12 - CONCLUSION: 1. Uncomplicated central venous Power PICC line placement. 2. The PICC line can be used immediately. Santy Burciaga Jr., MD Lumbar Puncture Fluoroscopy 09/04/17 0000 Signed Impressions: Service Date/Time: Monday, September 04, 2017 15:12 - CONCLUSION: Uncomplicated fluoroscopically guided lumbar puncture with pressures as above. Intrathecal methotrexate was administered. Santy Burciaga Jr., MD Chest CT 09/01/17 0000 Signed Impressions: Service Date/Time: Friday, September 01, 2017 16:48 - CONCLUSION: 1. No definite evidence for metastatic disease to the thorax. 2. 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 3. Scattered atelectasis and scarring in the lungs. 4. Moderate coronary calcifications. Cory Camarena MD Abdomen/Pelvis CT 09/01/17 0000 Signed Impressions: Service Date/Time: Friday, September 01, 2017 16:48 - CONCLUSION: 1. Post surgical changes with findings of cholecystectomy and prostatectomy. 2. Scattered diverticular disease of the colon without diverticulitis. 3. Lobulated cyst in the upper poles of both kidneys with some calcification on the left. 4. Retroperitoneal fat herniates through the left hemidiaphragm into the posterior left lung base. 5. No acute intraperitoneal or pelvic process to explain current clinical symptoms Gavin Lynn MD Bone Biopsy CT 08/30/17 1535 Signed Impressions: Service Date/Time: August 16:19 - CONCLUSION: 1. Uncomplicated CT guided bone marrow aspirate. 2. Uncomplicated CT guided bone marrow biopsy. Srikanth Ambrosio MD Thoracic Spine CT 08/30/17 0100 Signed Impressions: Service Date/Time: August 01:37 - CONCLUSION: 1. No fracture, subluxation or other acute abnormality of the thoracic spine. 2. Scoliosis and mild multifocal degenerative changes as above. 3. Complex appearing cystic structures of the upper poles of both kidneys. Comparison to any previous outside facility studies is recommended to confirm chronicity and stability. Contrast enhanced study of the abdomen suggested if felt clinically indicated, preferably MRI if there are no contraindications. Tim Jones MD Lumbar Spine CT 08/30/170 Signed Impressions: Service Date/Time: August 01:37 - CONCLUSION: 1. No acute fracture or acute subluxation of the lumbar spine. 2. 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 3. Mild spinal and bilateral foraminal stenosis at L4/L5. 4. Mild right and moderate left foraminal stenosis at L5/S1. 5. Benign vertebral body hemangioma of L1. No concerning lumbar spine bone lesion. Tim Jones MD Head CT 08/30/1799 Signed Impressions: Service Date/Time: August 01:37 - CONCLUSION: Small frontal maddy-falcine subdural blood is unchanged. Tim Jones MD Carotid Artery Ultrasound 08/30/17 0000 Signed Impressions: Service Date/Time: August 07:52 - CONCLUSION: 1. Diffuse calcified plaque throughout carotid arteries bilaterally with resultant moderate, 50-69%%, stenosis of the internal carotid arteries bilaterally and likely moderate stenosis of the left common carotid artery. 2. Antegrade vertebral artery flow bilaterally. Lopez Taylor MD Brain MRI 08/30/17 0000 Signed Impressions: Service Date/Time: August 09:27 - CONCLUSION: 1. Right frontal parafalcine abnormality on CT exam corresponds to a small meningioma. No definitive intra-or extra-axial hemorrhage. Lopez Taylor MD (Janet Ribeiro) Physical Exam General Appearance: No Acute Distress, Comfortable, Anxious (Janet Ribeiro) Throat Throat Exam: Oral Mucosa [place] & Moist (Janet Ribeiro) Pulmonary Resp Exam: Breath Sounds Equal, No Distress (Janet Ribeiro) Cardiology CV Exam: Regular, Normal Sinus Rhythm (Janet Ribeiro) Gastrointestinal/Abdomen GI Exam: Soft, Non-Tender, Distended (Janet Ribeiro) Genitourinary Exam: Flank Non-Tender (Janet Ribeiro) Integumentary Skin Exam: Clear, Warm (Janet Ribeiro) Extremeties Extremities Exam: Moderate Edema, Pitting Edema, Dependent Edema (Janet Ribeiro) Neurologic Neuro Exam: Alert, Awake, Oriented (Janet Ribeiro) Psychiatric Psych Exam: Appropriate Responses (Janet Ribeiro) Assessment/Plan Electrolyte Assessment: Hypernatremia, Hypocalcemia, Hypokalemia Problem List: (1) Acute kidney injury ICD Codes: N17.9 - Acute kidney failure, unspecified Plan: Acute kidney injury with creatinine of 2.44 when consulted. Acute kidney injury most likely related to tumor lysis. On admission creatinine of 0.99. CT of abdomen on the with kidney with normal in size and shape. There is no mass, stone or hydronephrosis. Lobulated cysts in the upper poles of both kidneys with some benign-appearing calcification on the left Creatinine stable Plan Will monitor renal panel periodically Avoid nephrotoxins. Hypernatremia resolved at 145 will IVF discontinued. Encouraged to elevate legs throughout day Continue diuril for hypernatremia and swelling. Lasix increase to 40 mg daily. Hypokalemia at 3.0 on scheduled potassium replacement. Will order extra today. Will be transfused today. (2) B-cell lymphoma ICD Codes: C85.10 - Unspecified B-cell lymphoma, unspecified site Status: Acute Plan: Oncology managing (3) Anemia ICD Codes: D64.9 - Anemia, unspecified Status: Acute Plan: Monitoring Transfusion today. (Janet Ribeiro) Problem List: (1) Acute kidney injury ICD Codes: N17.9 - Acute kidney failure, unspecified Plan: Acute kidney injury with creatinine of 2.44 when consulted. Acute kidney injury most likely related to tumor lysis. On admission creatinine of 0.99. CT of abdomen on the with kidney with normal in size and shape. There is no mass, stone or hydronephrosis. Lobulated cysts in the upper poles of both kidneys with some benign-appearing calcification on the left Creatinine stable Plan Will monitor renal panel periodically Avoid nephrotoxins. Hypernatremia resolved at 145 will IVF discontinued. Encouraged to elevate legs throughout day Continue diuril for hypernatremia and swelling. Lasix increase to 40 mg daily. Hypokalemia at 3.0 on scheduled potassium replacement. Will order extra today. Will be transfused today. Patient seen and examined, agree with above. Creatinine and uric acid better. (2) B-cell lymphoma ICD Codes: C85.10 - Unspecified B-cell lymphoma, unspecified site Status: Acute Plan: Oncology managing (3) Anemia ICD Codes: D64.9 - Anemia, unspecified Status: Acute Plan: Monitoring Transfusion today. (Demi Mendez MD) Problem Qualifiers (1) Anemia: Qualified Codes: D64.9 - Anemia, unspecified Janet Ribeiro September 17, 2017 10:20 Demi Mendez MD September 17, 2017 18:42
[2017-09-17] MEDS: NYSTAT/DIPHENHY/LIDO MOUTHWASH (Adult) 120ML SWISH-SPIT SCH ×4 (10:40→20:38)
[2017-09-17] MEDS: FUROSEMIDE 20 MG/2 ML VIAL IV PUSH SCH (10:41)
[2017-09-17] MEDS: CHLOROTHIAZIDE 250 MG TAB PO SCH ×2 (10:42→17:13)
[2017-09-17] MEDS: CALCIUM CARBONATE 1.25 GM (CA 500 MG) TAB PO SCH ×3 (10:43→20:37)
[2017-09-17] MEDS: PANTOPRAZOLE SODIUM 40 MG VIAL IV PUSH SCH (10:43)
[2017-09-17] MEDS: FLUCONAZOLE 100 MG TAB PO SCH (10:43)
[2017-09-17] MEDS: MULTIVITAMIN TAB PO SCH (10:44)
[2017-09-17] MEDS: SODIUM CHLORIDE 0.9% FLUSH 10 ML FLUSH IV FLUSH SCH ×2 (10:44→20:38)
[2017-09-17] MEDS: POTASSIUM BICARBONATE 25 MEQ EFFERVESCENT TAB PO SCH ×2 (10:44→20:38)
[2017-09-17] MEDS ORDERED: VANCOMYCIN INJ 2,000 MG in SODIUM CHLORID 0.9% 500 ML INJ 500 ML IV ONE (11:00)
[2017-09-17] MEDS: ACETAMINOPHEN 325 MG TAB PO PRN ×2 (13:31→17:13)
[2017-09-17] MEDS: FILGRASTIM INJ 480 MCG in DEXTROSE 5% IN WATER INJ 50 ML IV SCH ×2 (13:35)
[2017-09-17] MEDS: SODIUM CHLORIDE 0.9% FLUSH 10 ML FLUSH IVF SCH (16:11)
--- NOTE | 2017-09-17 18:32 | PD.WCN.NOT ---
Wound Consult Description: Consult for WOUND MANAGEMENT of scrotal skin breakdown per CLAUDIA Davila and WOUND MANAGEMENT of groin per Dr Grande Communicated with: Dr Christiane Smith RN [employer] Recommendation: Calazime BID and PRN for moisture related denuded skin on scrotum AND deep tissue injury to left buttock. Separate the scrotum from the thighs by placing a pillow case underneath scrotum and change when soiled/moist. Reposition patient from left to right Q2H and PRN for comfort. *USE ONLY DISPOSABLE ULTRASORBS UNDER NEATH PATIENT FOR MOISTURE* DO NOT USE THICK COTTON UNDERPADS WITH THE HELENA AIR MATTRESS Additional Information: Patient seen on [facility] for wound evaluation of scrotum and groin. Full note to follow. Edith Armijo [facility] September 17, 2017 18:32
--- NOTE | 2017-09-17 19:37 | HHI.IDPN ---
Note Infectious Disease Note Patient is laying in bed and is comfortable. He denies chills. Feels somewhat weak. Afebrile. Denies shortness of breath. Has diffuse anasarca. Market swelling of the scrotum. Some skin breakdown noted at the posterior aspect of the scrotum. Blood transfusion in progress. He has some pain on swallowing. Diagnosed with Burkitt lymphoma. The patient just completed chemotherapy on . He has been receiving antibiotics for E. coli bacteremia, which was cultured on 09/06. PAST MEDICAL HISTORY: Asthma, gastroesophageal reflux disease, hypertension, history of prostate cancer, history of prostatectomy, history of cholecystectomy, history of coronary stent x 2. ALLERGIES: PENICILLIN. THE PATIENT RECALLS ALLERGIC REACTION FROM CHILDHOOD, BUT NO SPECIFIC DETAILS. QUINOLONES, DIPHENHYDRAMINE, HYDROCODONE, MEPERIDINE. MEDICATIONS: Current Medications Medications (Trade) Dose Ordered Sig/Robert Route PRN Reason Start Time Stop Time Status Last Admin Dose Admin Sodium Chloride (NS Flush) 2 ml UNSCH PRN IV FLUSH FLUSH AFTER USING IV ACCESS 08/29/17 15:45 09/08/17 23:42 Sodium Chloride (NS Flush) 2 ml BID IV FLUSH 08/29/17 21:00 09/17/17 10:44 Pantoprazole Sodium (Protonix Inj) 40 mg DAILY IV PUSH 08/30/17 09:00 09/17/17 10:43 Ondansetron HCl (Zofran Inj) 4 mg Q6H PRN IV PUSH NAUSEA OR VOMITING 08/29/17 16:00 09/09/17 10:08 Albuterol/ Ipratropium (Duoneb Neb) 1 ampule Q2HR NEB PRN INH WHEEZING 08/29/17 16:00 09/04/17 23:32 Miscellaneous Information 1 Q361D XX 08/29/17 15:45 Chlorhexidine Gluconate (Chlorhexidine 2% Cloth) Taper DAILY@04 TOP 08/30/17 04:00 08/26/18 03:59 09/13/17 05:13 Chlorhexidine Gluconate (Chlorhexidine 2% Cloth) 3 pack UNSCH PRN TOP HYGIENIC CARE 08/29/17 15:45 Senna/Docusate Sodium (Madina-Colace) 1 tab BID PO 08/29/17 21:00 09/15/17 09:59 Magnesium Hydroxide (Milk Of Magnesia Liq) 30 ml Q12H PRN PO Mild constipation 08/29/17 16:00 Sennosides (Senokot) 17.2 mg Q12H PRN PO Moderate constipation 08/29/17 16:00 Bisacodyl (Dulcolax Supp) 10 mg DAILY PRN RECTAL SEVERE CONSITIPATION 08/29/17 16:00 Lactulose (Lactulose Liq) 30 ml DAILY PRN PO SEVERE CONSITIPATION 08/29/17 16:00 Albuterol Sulfate (Proair Hfa Inh) 2 puff Q6H PRN INH SHORTNESS OF BREATH 08/29/17 18:00 09/13/17 11:05 Amlodipine Besylate (Norvasc) 10 mg DAILY PO 08/30/17 09:00 Future Hold 09/05/17 10:12 Budesonide/ Formoterol Fumarate (Symbicort 160-4.5 Mcg Inh) 2 puff BID INH 08/29/17 21:00 09/17/17 09:00 Ramipril (Altace) 10 mg DAILY PO 08/30/17 14:00 Future Hold 09/05/17 10:12 Morphine Sulfate (Morphine Inj) 2 mg Q4H PRN IV PUSH BREAKTHROUGH PAIN 09/01/17 16:00 09/14/17 00:54 Sodium Chloride (NS Flush) DAILY IVF 09/05/17 09:00 09/17/17 16:11 Heparin Sodium (Porcine) (Heparin Central Flush) DAILY IV FLUSH 09/05/17 09:00 09/16/17 09:53 Sodium Chloride (NS Flush) UNSCH PRN IVF SEE PROTOCOL 09/04/17 16:00 09/10/17 21:58 Heparin Sodium (Porcine) (Heparin Central Flush) UNSCH PRN IV FLUSH SEE PROTOCOL 09/04/17 16:00 Sodium Chloride (NS Flush) UNSCH PRN IVF SEE PROTOCOL 09/04/17 16:00 09/10/17 21:59 Terbutaline Sulfate (Brethine Inj) 1 mg UNSCH PRN SQ For Extravasation 09/06/17 10:15 Aztreonam 1000 mg/ Sodium Chloride 100 ml @ 200 mls/hr Q8H IV 09/06/17 12:00 09/17/17 13:27 Pharmacy Profile Note 0 ml @ 0 mls/hr UNSCH OTHER 09/07/17 18:00 Filgrastim 480 mcg/Dextrose 51.6 ml @ 100 mls/hr DAILY@14 IV 09/11/17 21:00 09/17/17 13:35 Chlorothiazide (Diuril) 250 mg BID@09,18 PO 09/11/17 20:00 09/17/17 17:13 Zinc Oxide (Desitin 40% Oint) 1 applic UNSCH PRN TOPICAL DIAPER RASH 09/12/17 09:30 09/13/17 18:07 Nystatin (Mycostatin Powder) 1 applic Q8HR TOPICAL 09/12/17 09:30 09/17/17 13:43 Fluconazole (Diflucan) 100 mg DAILY PO 09/13/17 09:00 09/17/17 10:43 Calcium Carbonate (Oscal) 1,000 mg BID PO 09/13/17 09:00 09/17/17 10:43 Lorazepam (Ativan) 0.5 mg Q6H PRN PO anxiety/ sleep 09/13/17 17:30 09/17/17 03:34 Multi-Ingredient Mouthwash/Gargle (Magic Mouthwash Adult Liq) 10 ml QID SWISH-SPIT 09/15/17 13:00 09/17/17 16:07 Simethicone (Mylicon Chew) 80 mg TID PRN CHEW gas 09/15/17 11:45 Potassium Bicarbonate (Effer-K Eff) 50 meq BID PO 09/15/17 21:00 09/17/17 10:44 Calcium Carbonate (Oscal) 500 mg DAILY PO 09/16/17 09:00 09/17/17 10:47 Multivitamins (Theragran) 1 tab DAILY PO 09/16/17 09:00 09/17/17 10:44 Oxycodone HCl (Roxicodone) 5 mg Q4H PRN PO pain 2-5 09/16/17 11:45 09/16/17 21:43 Oxycodone HCl (Roxicodone) 10 mg Q4H PRN PO pain 6-10 09/16/17 11:45 Sodium Chloride 250 ml @ 15 mls/hr ONCE ONCE IV 09/17/17 08:30 09/18/17 01:09 09/17/17 16:11 Furosemide (Lasix Inj) 40 mg DAILY IV PUSH 09/18/17 09:00 SOCIAL HISTORY: The patient resides in [place], [place]. No tobacco, rare alcohol use. No illicit drugs. Vital Signs Date Time Temp Pulse Resp B/P (MAP) Pulse Ox O2 Delivery O2 Flow Rate FiO2 09/17/17 17:56 99.1 09/17/17 17:53 90 18 141/74 95 09/17/17 17:16 98.2 90 16 117/58 95 09/17/17 16:40 99.1 80 16 122/65 95 09/17/17 16:00 98.4 91 19 118/65 96 09/17/17 15:45 98.4 91 19 118/65 (82) 96 09/17/17 04:06 98.2 93 17 139/74 (95) 94 09/17/17 04:00 79 09/17/17 03:37 94 Room Air 09/17/17 01:00 98.3 92 16 122/55 (77) 96 09/17/17 01:00 96 Room Air 09/17/17 00:00 89 09/16/17 21:34 94 Room Air 09/16/17 21:34 98.4 90 18 131/72 (91) 94 09/16/17 20:00 85 Laboratory Tests Test 09/16/17 04:45 09/17/17 05:30 White Blood Count 0.0 TH/MM3 0.0 TH/MM3 Red Blood Count 2.44 MIL/MM3 2.17 MIL/MM3 Hemoglobin 7.2 GM/DL 6.5 GM/DL Hematocrit 20.4 % 18.1 % Mean Corpuscular Volume 83.6 FL 83.4 FL Mean Corpuscular Hemoglobin 29.4 PG 30.0 PG Mean Corpuscular Hemoglobin Concent 35.2 % 35.9 % Red Cell Distribution Width 14.4 % 14.3 % Platelet Count 16 TH/MM3 7 TH/MM3 Mean Platelet Volume 7.2 FL 6.5 FL CBC Comment AUTO DIFF AUTO DIFF Differential Total Cells Counted 4 2 Lymphocytes % 100 % 50 % Neutrophils # (Manual) 0.0 TH/MM3 0.0 TH/MM3 Differential Comment FINAL DIFF MANUAL FINAL DIFF MANUAL Platelet Estimate RARE RARE Platelet Morphology Comment NORMAL NORMAL Red Cell Morphology Comment NORMAL Monocytes % 50 % Laboratory Tests Test 09/16/17 04:45 09/17/17 05:30 Blood Urea Nitrogen 42 MG/DL 39 MG/DL Creatinine 1.10 MG/DL 1.13 MG/DL Random Glucose 169 MG/DL 140 MG/DL Total Protein 4.3 GM/DL 4.1 GM/DL Calcium Level 6.6 MG/DL 6.9 MG/DL Phosphorus Level 2.1 MG/DL Magnesium Level 1.6 MG/DL Sodium Level 146 MEQ/L 145 MEQ/L Potassium Level 3.0 MEQ/L 3.0 MEQ/L Chloride Level 109 MEQ/L 106 MEQ/L Carbon Dioxide Level 31.2 MEQ/L 31.0 MEQ/L Anion Gap 6 MEQ/L 8 MEQ/L Estimat Glomerular Filtration Rate 66 ML/MIN 64 ML/MIN Protein Corrected Calcium 8.1 MG/DL 8.6 MG/DL Imaging: Chest X-Ray 09/05/17 0000 Signed Impressions: Service Date/Time: Tuesday, September 05, 2017 01:50 - CONCLUSION: 1. Right PICC line in superior vena cava. Subsegmental basilar airspace disease. No effusion or pneumothorax. Cory Camarena MD PICC Line Insertion 09/04/17 0600 Signed Impressions: Service Date/Time: Monday, September 04, 2017 15:12 - CONCLUSION: 1. Uncomplicated central venous Power PICC line placement. 2. The PICC line can be used immediately. Santy Burciaga Jr., MD Lumbar Puncture Fluoroscopy 09/04/17 0000 Signed Impressions: Service Date/Time: Monday, September 04, 2017 15:12 - CONCLUSION: Uncomplicated fluoroscopically guided lumbar puncture with pressures as above. Intrathecal methotrexate was administered. Santy Burciaga Jr., MD Chest CT 09/01/17 0000 Signed Impressions: Service Date/Time: Friday, September 01, 2017 16:48 - CONCLUSION: 1. No definite evidence for metastatic disease to the thorax. 2. 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 3. Scattered atelectasis and scarring in the lungs. 4. Moderate coronary calcifications. Cory Camarena MD Abdomen/Pelvis CT 09/01/17 0000 Signed Impressions: Service Date/Time: Friday, September 01, 2017 16:48 - CONCLUSION: 1. Post surgical changes with findings of cholecystectomy and prostatectomy. 2. Scattered diverticular disease of the colon without diverticulitis. 3. Lobulated cyst in the upper poles of both kidneys with some calcification on the left. 4. Retroperitoneal fat herniates through the left hemidiaphragm into the posterior left lung base. 5. No acute intraperitoneal or pelvic process to explain current clinical symptoms Gavin Lynn MD Bone Biopsy CT 08/30/17 1535 Signed Impressions: Service Date/Time: August 16:19 - CONCLUSION: 1. Uncomplicated CT guided bone marrow aspirate. 2. Uncomplicated CT guided bone marrow biopsy. Srikanth Ambrosio MD Thoracic Spine CT 08/30/1799 Signed Impressions: Service Date/Time: August 01:37 - CONCLUSION: 1. No fracture, subluxation or other acute abnormality of the thoracic spine. 2. Scoliosis and mild multifocal degenerative changes as above. 3. Complex appearing cystic structures of the upper poles of both kidneys. Comparison to any previous outside facility studies is recommended to confirm chronicity and stability. Contrast enhanced study of the abdomen suggested if felt clinically indicated, preferably MRI if there are no contraindications. Tim Jones MD Lumbar Spine CT 08/30/1799 Signed Impressions: Service Date/Time: August 01:37 - CONCLUSION: 1. No acute fracture or acute subluxation of the lumbar spine. 2. 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 3. Mild spinal and bilateral foraminal stenosis at L4/L5. 4. Mild right and moderate left foraminal stenosis at L5/S1. 5. Benign vertebral body hemangioma of L1. No concerning lumbar spine bone lesion. Tim Jones MD Head CT 08/30/1799 Signed Impressions: Service Date/Time: August 01:37 - CONCLUSION: Small frontal madina-falcine subdural blood is unchanged. Tim Jones MD Carotid Artery Ultrasound 08/30/17 0000 Signed Impressions: Service Date/Time: August 07:52 - CONCLUSION: 1. Diffuse calcified plaque throughout carotid arteries bilaterally with resultant moderate, 50-69%%, stenosis of the internal carotid arteries bilaterally and likely moderate stenosis of the left common carotid artery. 2. Antegrade vertebral artery flow bilaterally. Lopez Taylor MD Brain MRI 08/30/17 0000 Signed Impressions: Service Date/Time: August 09:27 - CONCLUSION: 1. Right frontal parafalcine abnormality on CT exam corresponds to a small meningioma. No definitive intra-or extra-axial hemorrhage. Lopez Taylor MD PHYSICAL EXAMINATION: GENERAL: No acute distress. HEENT: Extraocular movements are grossly intact. Pupils reactive to light. No icterus. Oropharynx, mucosa is somewhat dry. Ulcers at the posterior oropharynx and upper palate. NECK: Supple without adenopathy. LUNGS: Clear breath sounds bilateral. HEART: Regular S1 and S2. No murmurs, rubs or gallop. ABDOMEN: Obese, soft, diminished bowel sounds. Nontender. : Swelling of the scrotum. EXTREMITIES: Diffuse 3+ edema involving both upper and lower extremities. Punctate petechial lesions at the lower extremities. SKIN: No diffuse rash. NEUROLOGIC: Nonfocal. PSYCHIATRIC: Calm and cooperative. IMPRESSION: 1. Bacteremia due to Escherichia coli. Being treated. 2. Persistent neutropenia and thrombocytopenia in patient with Burkitt lymphoma. Status post chemotherapy. Patient at high risk for infection. 3. Scrotal edema. Diffuse anasarca. RECOMMENDATIONS: 1. Continue aztreonam intravenous. 2. Continue Diflucan. 3. Add acyclovir for herpetic coverage. 4. Add oral nystatin. 5. Monitor the temperature. 6. Obtain blood cultures if he develops fever. 7. Broaden antibiotics if he develops fever. Discussed with RN. Estevan Benjamin MD September 17, 2017 19:37
[2017-09-17] MEDS: NYSTATIN SUSP 500,000 U/5 ML CUP SWISH-SWAL SCH (20:36)
[2017-09-17] MEDS: ACYCLOVIR 200 MG CAP PO SCH (22:33)
[2017-09-17] MEDS: POTASSIUM CHLOR 40 MEQ PREMIX 100 ML IV SCH (22:34)
[2017-09-17] MEDS: MORPHINE SULFATE 2 MG/ML SYRINGE IV PUSH PRN (23:07)
[2017-09-18] VITALS (15 sets, daily range): BP systolic 106–136; BP diastolic 49–69; PULSE 75–103; RESP 16–20; TEMP 98.2–98.9; O2SAT 93–96
[2017-09-18] MEDS: LORazepam 0.5 MG TAB PO PRN (01:22)
[2017-09-18] MEDS: CHLORHEXIDINE GLUCONATE 2 % 1 PACK (2 CLOTHS) TOP SCH (04:00)
[2017-09-18] MEDS: POTASSIUM CHLOR 40 MEQ PREMIX 100 ML IV SCH (04:42)
[2017-09-18] MEDS: AZTREONAM INJ 1,000 MG in SODIUM CHLORIDE 0.9% INJ 100 ML IV SCH ×3 (04:43→21:15)
[2017-09-18 05:13] LABS: MEAN CELL VOLUME 82.3 FL (80.0-100.0); MEAN CORPUSCULAR HEMOGLOBIN 29.4 PG (27.0-34.0); MEAN CORPUSCULAR HGB CONC 35.7 % (32.0-36.0); MEAN PLATELET VOLUME 6.8 FL (7.0-11.0); RED BLOOD COUNT 2.29 MIL/MM3 (4.50-5.90)
[2017-09-18 05:19] LABS: ALBUMIN 1.7 GM/DL (3.4-5.0); CREATININE 1.06 MG/DL (0.60-1.30); DIRECT BILIRUBIN ADULT 1.7 MG/DL (0.0-0.2); MAGNESIUM 1.6 MG/DL (1.5-2.5); TOTAL BILIRUBIN ADULT 2.7 MG/DL (0.2-1.0); TOTAL PROTEIN 4.3 GM/DL (6.4-8.2)
[2017-09-18 05:32] LABS: HEMATOCRIT 18.8 % (39.0-51.0); HEMOGLOBIN 6.7 GM/DL (13.0-17.0); PLATELET COUNT 11 TH/MM3 (150-450)
[2017-09-18] MEDS: ACETAMINOPHEN 325 MG TAB PO PRN ×2 (05:51→11:20)
[2017-09-18] MEDS: ACYCLOVIR 200 MG CAP PO SCH ×3 (05:57→21:19)
[2017-09-18] MEDS: NYSTATIN 100,000 U/GM PWD 15 GM BTL TOPICAL SCH ×3 (05:58→21:43)
--- NOTE | 2017-09-18 07:36 | HHI.PR ---
Subjective Remarks Follow-up multiple medical problems. Patient with significant scrotal edema with excoriations and monitor for signs of infection patient is pancytopenic and at risk of infection Still with global electrolytes replaced Still with generalized pain No shortness of breath at this time no fever or chills. Is not coughing. Objective Vitals Vital Signs Date Time Temp Pulse Resp B/P (MAP) Pulse Ox O2 Delivery O2 Flow Rate FiO2 09/18/17 06:36 98.5 81 18 116/69 94 09/18/17 04:39 98.6 91 18 122/67 (85) 94 09/18/17 00:31 79 09/18/17 00:00 98.6 95 18 121/68 (85) 95 09/17/17 20:39 Room Air 94 09/17/17 20:32 98.0 86 18 137/67 (90) 94 09/17/17 17:56 99.1 09/17/17 17:53 90 18 141/74 95 09/17/17 17:16 98.2 90 16 117/58 95 09/17/17 16:40 99.1 80 16 122/65 95 09/17/17 16:00 98.4 91 19 118/65 96 09/17/17 15:45 98.4 91 19 118/65 (82) 96 09/17/17 13:40 98.6 84 16 122/68 (86) 95 09/17/17 10:20 98.5 94 16 112/63 (79) 94 I/O 09/17/17 09/17/17 09/17/17 09/18/17 09/18/17 09/18/17 07:00 15:00 23:00 07:00 15:00 23:00 Intake Total 916 ml 872 ml 200 ml Output Total 1200 ml 850 ml 600 ml 1450 ml Balance -284 ml -850 ml 272 ml -1250 ml Intake Oral 480 ml IV Total 436 ml 100 ml 200 ml Packed Cells 400 ml Platelets 372 ml Output Urine Total 1200 ml 850 ml 600 ml 1450 ml Result Diagram: 09/18/17 0425 09/18/17 0425 Imaging Last Impressions Chest X-Ray 09/05/17 0000 Signed Impressions: Service Date/Time: Tuesday, September 05, 2017 01:50 - CONCLUSION: 1. Right PICC line in superior vena cava. Subsegmental basilar airspace disease. No effusion or pneumothorax. Cory Camarena MD PICC Line Insertion 09/04/17 0600 Signed Impressions: Service Date/Time: Monday, September 04, 2017 15:12 - CONCLUSION: 1. Uncomplicated central venous Power PICC line placement. 2. The PICC line can be used immediately. Santy Burciaga Jr., MD Lumbar Puncture Fluoroscopy 09/04/17 0000 Signed Impressions: Service Date/Time: Monday, September 04, 2017 15:12 - CONCLUSION: Uncomplicated fluoroscopically guided lumbar puncture with pressures as above. Intrathecal methotrexate was administered. Santy Burciaga Jr., MD Chest CT 09/01/17 0000 Signed Impressions: Service Date/Time: Friday, September 01, 2017 16:48 - CONCLUSION: 1. No definite evidence for metastatic disease to the thorax. 2. 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 3. Scattered atelectasis and scarring in the lungs. 4. Moderate coronary calcifications. Cory Camarena MD Abdomen/Pelvis CT 09/01/17 0000 Signed Impressions: Service Date/Time: Friday, September 01, 2017 16:48 - CONCLUSION: 1. Post surgical changes with findings of cholecystectomy and prostatectomy. 2. Scattered diverticular disease of the colon without diverticulitis. 3. Lobulated cyst in the upper poles of both kidneys with some calcification on the left. 4. Retroperitoneal fat herniates through the left hemidiaphragm into the posterior left lung base. 5. No acute intraperitoneal or pelvic process to explain current clinical symptoms Gavin Lynn MD Bone Biopsy CT 08/30/17 1535 Signed Impressions: Service Date/Time: August 16:19 - CONCLUSION: 1. Uncomplicated CT guided bone marrow aspirate. 2. Uncomplicated CT guided bone marrow biopsy. Srikanth Ambrosio MD Thoracic Spine CT 08/30/17 0100 Signed Impressions: Service Date/Time: August 01:37 - CONCLUSION: 1. No fracture, subluxation or other acute abnormality of the thoracic spine. 2. Scoliosis and mild multifocal degenerative changes as above. 3. Complex appearing cystic structures of the upper poles of both kidneys. Comparison to any previous outside facility studies is recommended to confirm chronicity and stability. Contrast enhanced study of the abdomen suggested if felt clinically indicated, preferably MRI if there are no contraindications. Tim Jones MD Lumbar Spine CT 08/30/17 0100 Signed Impressions: Service Date/Time: August 01:37 - CONCLUSION: 1. No acute fracture or acute subluxation of the lumbar spine. 2. 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 3. Mild spinal and bilateral foraminal stenosis at L4/L5. 4. Mild right and moderate left foraminal stenosis at L5/S1. 5. Benign vertebral body hemangioma of L1. No concerning lumbar spine bone lesion. Tim Jones MD Head CT 08/30/17 0100 Signed Impressions: Service Date/Time: August 01:37 - CONCLUSION: Small frontal maddy-falcine subdural blood is unchanged. Tim Jones MD Carotid Artery Ultrasound 08/30/17 0000 Signed Impressions: Service Date/Time: August 07:52 - CONCLUSION: 1. Diffuse calcified plaque throughout carotid arteries bilaterally with resultant moderate, 50-69%%, stenosis of the internal carotid arteries bilaterally and likely moderate stenosis of the left common carotid artery. 2. Antegrade vertebral artery flow bilaterally. Lopez Taylor MD Brain MRI 08/30/17 0000 Signed Impressions: Service Date/Time: August 09:27 - CONCLUSION: 1. Right frontal parafalcine abnormality on CT exam corresponds to a small meningioma. No definitive intra-or extra-axial hemorrhage. Lopez Taylor MD Objective Remarks General appearance: Very pleasant elderly gentleman, awake, weak, ill-appearing Cardiovascular: Regular heart sounds, no murmurs Respiratory: Clear bilateral, good air entry, no wheezes Abdomen: soft, non-tender, no rebound. Extremities: warm and well perfused, 3+ pitting edema : scrotal edema Procedures Bone marrow biopsy 08/30/2017. Line: PICC A/P Problem List: (1) Anemia ICD Code: D64.9 - Anemia, unspecified Status: Acute (2) Thrombocytopenia ICD Code: D69.6 - Thrombocytopenia, unspecified Status: Acute (3) GI bleed ICD Code: K92.2 - Gastrointestinal hemorrhage, unspecified Status: Acute (4) Back pain ICD Code: M54.9 - Dorsalgia, unspecified Status: Acute (5) History of ND (myocardial infarction) ICD Code: I25.2 - Old myocardial infarction (6) B-cell lymphoma ICD Code: C85.10 - Unspecified B-cell lymphoma, unspecified site Status: Acute (7) Abnormal head CT ICD Code: R93.0 - Abnormal findings on diagnostic imaging of skull and head, not elsewhere classified (8) Hearing loss ICD Code: H91.90 - Unspecified hearing loss, unspecified ear (9) Leukocytosis ICD Code: D72.829 - Elevated white blood cell count, unspecified Assessment and Plan 72y/o male with anemia + thrombocytopenia. History of prostate cancer, status post prostatectomy, coronary artery disease, s/p stent placement. 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 Septic shock - resolved E coli and strep viridans bacteremia - repeat blood cx are negative to date. Etiology of E coli in blood - No evidence of a UTI based on symptoms. ID consulted for further recommendation. Continue IV aztreonam for now.Echocardiogram shows an EF of 55-60% with moderate concentric left ventricular hypertrophy. No vegetation reported. Tumor lysis syndrome - Resolved. Allopurinol on hold. Monitor closely. Hyperkalemia now hypokalemia and hypocalcemia.-Continue to replace. Monitor closely. LUCA/hypernatremia- creatinine trending down, good urine output. Continue half normal saline due to hypernatremia. Monitor BMPs every 6 hours. Cautioned to not overcorrect quickly sodium levels. Encourage p.o. hydration (250ml water q4 -6hrs while awake). Nephrology following, appreciate recs. Pt has been started on diuril. Monitor Cr closely. Metabolic acidosis - improved Pancytopenia - requiring multiple transfusions ( ~daily). Transfusion and G- CSF per oncology. Transfuse 1 unit packed red blood cells and 1U PLT today 09/18/17 Transfuse to keep platelets greater than 10,000, hemoglobin greater than 7.5 Continue Neupogen Burkitt's lymphoma receiving chemo. Management per hematology History of prostate cancer status post XRT Diarrhea - seems to have resolved, monitor. Oral thrush give magic wash Scrotal edema/escoriations worsening LE edema. Give lasix 20 mg IV scheduled and albumin IV. Monitor UOP. , monitor closely kidney function. Replenish electrolytes. Consult wound care, discussed with Edith mahoney wound care and with the nurse . Recommendation sfor wound care. Scrotal tears noted, pt having pain with urination due to urine touching those open tears and burning. Dr. Duron doesn't recommend placing a jensen as he is at high risk for bleeding due to his low plt count and also high risk for infection due to his neutropenia. Desitin cream and lidocaine jelly to be applied. Keep pt dry as much as possible. Place a condom catheter, will do but at this time, edema is too much and this cannot be done. Nystatin powder also ordered Patient however with significant scrotal edema and pain, has a Jensen placed with orange urine, fairly good OP. Discharge Planning Continue to replace electrolytes. Monitor sodium levels closely. Transfuse per heme/onc recs. CM assisting with DC planning as family wishes to pursue care in [place] has a plane ticket for 09/22/17 Transfuse 1U PRBC and 1U PLT today again 09/18/17 Transfuse to keep platelets greater than 10,000, hemoglobin greater than 7.5 Discussed with the patient, nurse, family at bedside, Tricia Davila hem/onc CLAUDIA, Dr Crawford oncology Problem Qualifiers (1) Anemia: Qualified Codes: D64.9 - Anemia, unspecified (2) Back pain: Qualified Codes: M54.9 - Dorsalgia, unspecified (3) Hearing loss: Qualified Codes: H91.92 - Unspecified hearing loss, left ear (4) Leukocytosis: Qualified Codes: D72.829 - Elevated white blood cell count, unspecified Adelaide Grande MD September 18, 2017 07:36
[2017-09-18 08:16] LABS: CALCIUM-PROTEIN CORRECTED 8.5 MG/DL (8.5-10.1)
[2017-09-18 08:37] LABS: LYMPHOCYTES 50 % (9-44); POLYS (SEG NEUTROPHILS) 50 % (16-70)
[2017-09-18] MEDS: NYSTATIN SUSP 500,000 U/5 ML CUP SWISH-SWAL SCH ×4 (09:03→21:18)
[2017-09-18] MEDS: NYSTAT/DIPHENHY/LIDO MOUTHWASH (Adult) 120ML SWISH-SPIT SCH ×4 (09:04→21:16)
[2017-09-18] MEDS: PANTOPRAZOLE SODIUM 40 MG VIAL IV PUSH SCH (09:05)
[2017-09-18] MEDS: FUROSEMIDE 20 MG/2 ML VIAL IV PUSH SCH ×2 (09:05→18:06)
[2017-09-18] MEDS: POTASSIUM BICARBONATE 25 MEQ EFFERVESCENT TAB PO SCH ×2 (09:06→21:18)
[2017-09-18] MEDS: FLUCONAZOLE 100 MG TAB PO SCH (09:06)
[2017-09-18] MEDS: CALCIUM CARBONATE 1.25 GM (CA 500 MG) TAB PO SCH ×3 (09:06→21:18)
[2017-09-18] MEDS: MULTIVITAMIN TAB PO SCH (09:06)
[2017-09-18] MEDS: DOCUSATE SODIUM 50 MG/SENNA 8.6 MG TAB PO SCH ×2 (09:08→21:19)
[2017-09-18] MEDS: CHLOROTHIAZIDE 250 MG TAB PO SCH ×2 (09:08→18:06)
[2017-09-18] MEDS: SODIUM CHLORIDE 0.9% FLUSH 10 ML FLUSH IV FLUSH SCH ×2 (09:09→21:00)
[2017-09-18] MEDS: BUDESONIDE-FORMOTEROL 160/4.5 MCG INHALER INH SCH ×2 (09:09→21:17)
[2017-09-18] MEDS: SODIUM CHLORIDE 0.9% FLUSH 10 ML FLUSH IVF SCH (09:10)
--- NOTE | 2017-09-18 09:21 | PD.ONC.PN ---
Subjective Subjective Remarks Afebrile overnight. Patient resting in bed. Feeling a bit better today than yesterday. No BM yesterday. Objective Data Date Time Temp Pulse Resp B/P (MAP) Pulse Ox O2 Delivery O2 Flow Rate FiO2 09/18/17 09:01 98.4 88 18 121/65 (83) 96 09/18/17 06:52 98.6 88 16 122/67 95 09/18/17 06:36 98.5 81 18 116/69 94 09/18/17 04:39 98.6 91 18 122/67 (85) 94 09/18/17 04:05 75 09/18/17 00:31 79 09/18/17 00:00 98.6 95 18 121/68 (85) 95 09/17/17 20:39 Room Air 94 09/17/17 20:32 98.0 86 18 137/67 (90) 94 09/17/17 20:14 88 09/17/17 17:56 99.1 09/17/17 17:53 90 18 141/74 95 09/17/17 17:16 98.2 90 16 117/58 95 09/17/17 16:40 99.1 80 16 122/65 95 09/17/17 16:00 98.4 91 19 118/65 96 09/17/17 15:45 98.4 91 19 118/65 (82) 96 09/17/17 13:40 98.6 84 16 122/68 (86) 95 09/17/17 10:20 98.5 94 16 112/63 (79) 94 09/18/17 09/18/17 09/18/17 07:00 15:00 23:00 Intake Total 200 ml Output Total 1450 ml Balance -1250 ml Result Diagram: 09/18/17 0425 09/18/17 0425 Laboratory Results Laboratory Tests Test 09/18/17 04:25 White Blood Count 0.0 TH/MM3 Red Blood Count 2.29 MIL/MM3 Hemoglobin 6.7 GM/DL Hematocrit 18.8 % Mean Corpuscular Volume 82.3 FL Mean Corpuscular Hemoglobin 29.4 PG Mean Corpuscular Hemoglobin Concent 35.7 % Red Cell Distribution Width 15.0 % Platelet Count 11 TH/MM3 Mean Platelet Volume 6.8 FL CBC Comment AUTO DIFF Differential Total Cells Counted 2 Neutrophils % (Manual) 50 % Lymphocytes % 50 % Neutrophils # (Manual) 0.0 TH/MM3 Differential Comment FINAL DIFF MANUAL Plasma Cells % Platelet Estimate RARE Platelet Morphology Comment NORMAL Red Cell Morphology Comment NORMAL Blood Urea Nitrogen 38 MG/DL Creatinine 1.06 MG/DL Random Glucose 130 MG/DL Total Protein 4.3 GM/DL Albumin 1.7 GM/DL Calcium Level 7.0 MG/DL Magnesium Level 1.6 MG/DL Alkaline Phosphatase 73 U/L Aspartate Amino Transf (AST/SGOT) 10 U/L Alanine Aminotransferase (ALT/SGPT) 30 U/L Total Bilirubin 2.7 MG/DL Direct Bilirubin 1.7 MG/DL Sodium Level 144 MEQ/L Potassium Level 2.9 MEQ/L Chloride Level 105 MEQ/L Carbon Dioxide Level 32.0 MEQ/L Anion Gap 7 MEQ/L Estimat Glomerular Filtration Rate 68 ML/MIN Protein Corrected Calcium 8.5 MG/DL Indirect Bilirubin 1.0 MG/DL Administered Medications Medications (Trade) Dose Ordered Sig/Robert Route PRN Reason Start Time Stop Time Status Last Admin Dose Admin Sodium Chloride (NS Flush) 2 ml UNSCH PRN IV FLUSH FLUSH AFTER USING IV ACCESS 08/29/17 15:45 09/08/17 23:42 Sodium Chloride (NS Flush) 2 ml BID IV FLUSH 08/29/17 21:00 09/17/17 20:38 Pantoprazole Sodium (Protonix Inj) 40 mg DAILY IV PUSH 08/30/17 09:00 09/17/17 10:43 Ondansetron HCl (Zofran Inj) 4 mg Q6H PRN IV PUSH NAUSEA OR VOMITING 08/29/17 16:00 09/09/17 10:08 Albuterol/ Ipratropium (Duoneb Neb) 1 ampule Q2HR NEB PRN INH WHEEZING 08/29/17 16:00 09/04/17 23:32 Chlorhexidine Gluconate (Chlorhexidine 2% Cloth) 3 pack Taper DAILY@04 TOP 08/30/17 04:00 08/26/18 03:59 09/13/17 05:13 Senna/Docusate Sodium (Madina-Colace) 1 tab BID PO 08/29/17 21:00 09/15/17 09:59 Albuterol Sulfate (Proair Hfa Inh) 2 puff Q6H PRN INH SHORTNESS OF BREATH 08/29/17 18:00 09/13/17 11:05 Amlodipine Besylate (Norvasc) 10 mg DAILY PO 08/30/17 09:00 Future Hold 09/05/17 10:12 Budesonide/ Formoterol Fumarate (Symbicort 160-4.5 Mcg Inh) 2 puff BID INH 08/29/17 21:00 09/17/17 23:07 Ramipril (Altace) 10 mg DAILY PO 08/30/17 14:00 Future Hold 09/05/17 10:12 Morphine Sulfate (Morphine Inj) 2 mg Q4H PRN IV PUSH BREAKTHROUGH PAIN 09/01/17 16:00 09/17/17 23:07 Sodium Chloride (NS Flush) DAILY IVF 09/05/17 09:00 09/17/17 16:11 Heparin Sodium (Porcine) (Heparin Central Flush) DAILY IV FLUSH 09/05/17 09:00 09/16/17 09:53 Sodium Chloride (NS Flush) UNSCH PRN IVF SEE PROTOCOL 09/04/17 16:00 09/10/17 21:58 Sodium Chloride (NS Flush) UNSCH PRN IVF SEE PROTOCOL 09/04/17 16:00 09/10/17 21:59 Aztreonam 1000 mg/ Sodium Chloride 100 ml @ 200 mls/hr Q8H IV 09/06/17 12:00 09/18/17 04:43 Filgrastim 480 mcg/Dextrose 51.6 ml @ 100 mls/hr DAILY@14 IV 09/11/17 21:00 09/17/17 13:35 Chlorothiazide (Diuril) 250 mg BID@ PO 09/11/17 20:00 09/17/17 17:13 Zinc Oxide (Desitin 40% Oint) 1 applic UNSCH PRN TOPICAL DIAPER RASH 09/12/17 09:30 09/13/17 18:07 Nystatin (Mycostatin Powder) 1 applic Q8HR TOPICAL 09/12/17 09:30 09/17/17 13:43 Fluconazole (Diflucan) 100 mg DAILY PO 09/13/17 09:00 09/17/17 10:43 Calcium Carbonate (Oscal) 1,000 mg BID PO 09/13/17 09:00 09/17/17 20:37 Lorazepam (Ativan) 0.5 mg Q6H PRN PO anxiety/ sleep 09/13/17 17:30 09/18/17 01:22 Multi-Ingredient Mouthwash/Gargle (Magic Mouthwash Adult Liq) 10 ml QID SWISH-SPIT 09/15/17 13:00 09/17/17 20:38 Potassium Bicarbonate (Effer-K Eff) 50 meq BID PO 09/15/17 21:00 09/17/17 20:38 Calcium Carbonate (Oscal) 500 mg DAILY PO 09/16/17 09:00 09/17/17 10:47 Multivitamins (Theragran) 1 tab DAILY PO 09/16/17 09:00 09/17/17 10:44 Oxycodone HCl (Roxicodone) 5 mg Q4H PRN PO pain 2-5 09/16/17 11:45 09/16/17 21:43 Oxycodone HCl (Roxicodone) 10 mg Q4H PRN PO pain 6-10 09/16/17 11:45 09/17/17 20:43 Acetaminophen (Tylenol) 650 mg Q4H PRN PO SEE LABEL COMMENTS 09/18/17 06:00 09/18/17 05:51 Acyclovir (Zovirax) 400 mg Q8HR PO 09/17/17 22:00 09/18/17 05:57 Nystatin (Mycostatin Liq) 5 ml QID SWISH-SWAL 09/17/17 21:00 09/17/17 20:36 Objective Remarks GENERAL: Pleasant elderly male, sitting up in bed SKIN: Warm and dry. HEAD: Normocephalic. EYES: No injection or drainage. NECK: Supple, trachea midline. CARDIOVASCULAR: Regular rate and rhythm RESPIRATORY: anterior bridges clear. GASTROINTESTINAL: Abdomen soft, non-tender, nondistended. EXTREMITIES: No cyanosis NEUROLOGICAL: awake and alert. normal speech. moving extremities. 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 ++also has bone pain, back pain, elevated LDH, as well as the sweats that suggests a more systemic manifestation of bone marrow disorder. ++ Nucleated red cells seen on peripheral smear. no acute blasts. CT C/A/P showing no LAD Discussed w/ oncologist in [place] pt's home town coordination of treatment when he leaves here. He has flight schedule 09/22/17. agreed to assume care, plan to fax records, appt to be made for the Sunday after his return home. 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 09/04: PICC line placement today, start R-EPOCH, give IT MTX. 09/05: Rituxan infusion complete. patient in TLS. transferred to ICU. cooler service supervisor consulted. 09/06: start EPOCH, window closing as patient is now leukopenic. give blood and platelets. 09/07: give D2 EPOCH. give 1 unit pRBC, check repeat H/H. 09/08: give D3 EPOCH. 1 unit pRBC, 1 unit platelets. 09/09: D4 EPOCH, 2 units platelets. 09/10: D5--finish 4th bag of EPOCH, give Cytoxan this evening. 09/13/17: Continue G-CSF support 09/14/17: Transfuse 2 units packed red blood cells, 1 unit platelets 09/17/17: continue Neupogen. give 1 unit prbc 1 unit platelets. 09/18/17: start wound care instructions. 1 unit pRBC, 1 unit platelets. (2) Anasarca ICD Codes: R60.1 - Generalized edema Plan: --nephrology following. --receiving Lasix IV. --start Albumin infusions. (3) Skin breakdown ICD Codes: L90.9 - Atrophic disorder of skin, unspecified Plan: --appreciate wound care assistance. --Daly mattress started BID and PRN to Left Buttock 1. Bourg Cavilon skin barrier film on purple non blanching pressure injury after gently cleansing 2. Apply Calazime skin protectant paste and leave open to air 3. Use ONLY disposable under pads for moisture (NO THICK COTTON UNDERPADS/DRAW SHEETS) *Reposition patient from left to right sides only. Limit time spent on back for therapies only* Assessment 72y/o male with new diagnosis of Burkitt's lymphoma in the bone marrow given R- EPOCH chemo Plan 1. give 1 unit pRBC and 1 unit platelets 2. appreciate wound care assistance, discussed plan with patient and nurse, will need to be aggressive with wound care to try and prevent infection 3. agree with albumin infusions combined with Lasix--patient still with significant edema. appreciate nephrology assistance. Attending Statement The exam, history, and the medical decision-making described in the above note were completed with the assistance of the mid-level provider. I reviewed and agree with the findings presented. I attest that I had a [id number] encounter with the patient on the same day, and personally performed and documented my assessment and findings in the medical record. Still pancytopenic. Transfusion and platelet dependent. c/o back pain, mucositis pain, but eating has some appetite in AM. Continue Acyclovir and Diflucan. Afebrile, renal function improve, ca 2+ improve, Na and CL normal. Noted LFT bilirubin elevation ? hemolysis from transfusion. Cont GCSF. Laurita Davila September 18, 2017 09:21 Shahla Duron MD September 18, 2017 18:13
--- NOTE | 2017-09-18 09:32 | HHI.NPPN ---
Subjective General Problems: Edema Renal Failure: Acute History of Present Illness Patient is a 72 year old male with a past medical history of prostate cancer, asthma, gastroesophageal reflux, Muñoz's esophagus,hypertension, new anemia, new thrombocytopenia, rotator cuff injury, and back pain. 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 Patient was receiving Rituxan last night and developed a reaction with low grade temperature, pain, and tremor. Plan to transfer patient to intensive care unit as patient is at risk for fluid overload with blood transfusions and acute kidney injury. Nephrology is consulted for acute kidney injury with creatinine of 2.44 with a admission creatinine of 0.99. HGB is low at 7.2, Plt of 27, NA 148, CO2 14.5. Patient is resting comfortably now with his only complaint is that is dizzy with ambulation. Additional Remarks Bilateral lower extremity edema continues. No shortness of breath. (Janet Ribeiro) Review of Systems Respiratory Respiratory Remarks Denies any SOB (Janet Ribeiro) Cardiovascular Cardiac: Edema Cardiac Remarks Denies any CP (Janet Ribeiro) Gastrointestinal GI Remarks Denies any abdominal pain (Janet Ribeiro) Objective Data Data Vital Signs Date Time Temp Pulse Resp B/P (MAP) Pulse Ox O2 Delivery O2 Flow Rate FiO2 09/18/17 09:01 98.4 88 18 121/65 (83) 96 09/18/17 06:52 98.6 88 16 122/67 95 09/18/17 06:36 98.5 81 18 116/69 94 09/18/17 04:39 98.6 91 18 122/67 (85) 94 09/18/17 04:05 75 09/18/17 00:31 79 09/18/17 00:00 98.6 95 18 121/68 (85) 95 09/17/17 20:39 Room Air 94 09/17/17 20:32 98.0 86 18 137/67 (90) 94 09/17/17 20:14 88 09/17/17 17:56 99.1 09/17/17 17:53 90 18 141/74 95 09/17/17 17:16 98.2 90 16 117/58 95 09/17/17 16:40 99.1 80 16 122/65 95 09/17/17 16:00 98.4 91 19 118/65 96 09/17/17 15:45 98.4 91 19 118/65 (82) 96 09/17/17 13:40 98.6 84 16 122/68 (86) 95 09/17/17 10:20 98.5 94 16 112/63 (79) 94 (StephenruthJanetjones JEFFERYP) -: 09/18/17 0425 09/18/17 0425 Imaging Last Impressions Chest X-Ray 09/05/17 0000 Signed Impressions: Service Date/Time: Tuesday, September 05, 2017 01:50 - CONCLUSION: 1. Right PICC line in superior vena cava. Subsegmental basilar airspace disease. No effusion or pneumothorax. Cory Camarena MD PICC Line Insertion 09/04/17 0600 Signed Impressions: Service Date/Time: Monday, September 04, 2017 15:12 - CONCLUSION: 1. Uncomplicated central venous Power PICC line placement. 2. The PICC line can be used immediately. Santy Burciaga Jr., MD Lumbar Puncture Fluoroscopy 09/04/17 0000 Signed Impressions: Service Date/Time: Monday, September 04, 2017 15:12 - CONCLUSION: Uncomplicated fluoroscopically guided lumbar puncture with pressures as above. Intrathecal methotrexate was administered. Santy Burciaga Jr., MD Chest CT 09/01/17 0000 Signed Impressions: Service Date/Time: Friday, September 01, 2017 16:48 - CONCLUSION: 1. No definite evidence for metastatic disease to the thorax. 2. 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 3. Scattered atelectasis and scarring in the lungs. 4. Moderate coronary calcifications. Cory Camarena MD Abdomen/Pelvis CT 09/01/17 0000 Signed Impressions: Service Date/Time: Friday, September 01, 2017 16:48 - CONCLUSION: 1. Post surgical changes with findings of cholecystectomy and prostatectomy. 2. Scattered diverticular disease of the colon without diverticulitis. 3. Lobulated cyst in the upper poles of both kidneys with some calcification on the left. 4. Retroperitoneal fat herniates through the left hemidiaphragm into the posterior left lung base. 5. No acute intraperitoneal or pelvic process to explain current clinical symptoms Gavin Lynn MD Bone Biopsy CT 08/30/17 1535 Signed Impressions: Service Date/Time: August 16:19 - CONCLUSION: 1. Uncomplicated CT guided bone marrow aspirate. 2. Uncomplicated CT guided bone marrow biopsy. Srikanth Ambrosio MD Thoracic Spine CT 08/30/1799 Signed Impressions: Service Date/Time: August 01:37 - CONCLUSION: 1. No fracture, subluxation or other acute abnormality of the thoracic spine. 2. Scoliosis and mild multifocal degenerative changes as above. 3. Complex appearing cystic structures of the upper poles of both kidneys. Comparison to any previous outside facility studies is recommended to confirm chronicity and stability. Contrast enhanced study of the abdomen suggested if felt clinically indicated, preferably MRI if there are no contraindications. Tim Jones MD Lumbar Spine CT 08/30/1799 Signed Impressions: Service Date/Time: August 01:37 - CONCLUSION: 1. No acute fracture or acute subluxation of the lumbar spine. 2. 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 3. Mild spinal and bilateral foraminal stenosis at L4/L5. 4. Mild right and moderate left foraminal stenosis at L5/S1. 5. Benign vertebral body hemangioma of L1. No concerning lumbar spine bone lesion. Tim Jones MD Head CT 08/30/1799 Signed Impressions: Service Date/Time: August 01:37 - CONCLUSION: Small frontal maddy-falcine subdural blood is unchanged. Tim Jones MD Carotid Artery Ultrasound 08/30/17 0000 Signed Impressions: Service Date/Time: August 07:52 - CONCLUSION: 1. Diffuse calcified plaque throughout carotid arteries bilaterally with resultant moderate, 50-69%%, stenosis of the internal carotid arteries bilaterally and likely moderate stenosis of the left common carotid artery. 2. Antegrade vertebral artery flow bilaterally. Lopez Taylor MD Brain MRI 08/30/17 0000 Signed Impressions: Service Date/Time: August 09:27 - CONCLUSION: 1. Right frontal parafalcine abnormality on CT exam corresponds to a small meningioma. No definitive intra-or extra-axial hemorrhage. Lopez Taylor MD (Janet Ribeiro) Physical Exam General Appearance: No Acute Distress, Comfortable, Anxious (Janet Ribeiro) Throat Throat Exam: Oral Mucosa [place] & Moist (Janet Ribeiro) Pulmonary Resp Exam: Breath Sounds Equal, No Distress (Janet Ribeiro) Cardiology CV Exam: Regular, Normal Sinus Rhythm (Janet Ribeiro) Gastrointestinal/Abdomen GI Exam: Soft, Non-Tender, Distended (Janet Ribeiro) Genitourinary Exam: Flank Non-Tender (Janet Ribeiro) Integumentary Skin Exam: Clear, Warm (Janet Ribeiro) Extremeties Extremities Exam: Moderate Edema, Pitting Edema, Dependent Edema (Janet Ribeiro) Neurologic Neuro Exam: Alert, Awake, Oriented (Janet Ribeiro) Psychiatric Psych Exam: Appropriate Responses (Janet Ribeiro) Assessment/Plan Electrolyte Assessment: Hypernatremia, Hypocalcemia, Hypokalemia Problem List: (1) Acute kidney injury ICD Codes: N17.9 - Acute kidney failure, unspecified Plan: Acute kidney injury with creatinine of 2.44 when consulted. Acute kidney injury most likely related to tumor lysis. On admission creatinine of 0.99. CT of abdomen on the with kidney with normal in size and shape. There is no mass, stone or hydronephrosis. Lobulated cysts in the upper poles of both kidneys with some benign-appearing calcification on the left Creatinine stable Plan Will monitor renal panel periodically Avoid nephrotoxins. Encouraged to elevate legs throughout day Lasix increase to 40 mg BID and albumin added BID Hypokalemia at 2.9 on scheduled potassium replacement and extra ordered today. Plts and PRBC transfusions ordered (2) B-cell lymphoma ICD Codes: C85.10 - Unspecified B-cell lymphoma, unspecified site Status: Acute Plan: Oncology managing (3) Anemia ICD Codes: D64.9 - Anemia, unspecified Status: Acute Plan: Monitoring Transfusion today. (Janet Ribeiro) Problem List: (1) Acute kidney injury ICD Codes: N17.9 - Acute kidney failure, unspecified Plan: Acute kidney injury with creatinine of 2.44 when consulted. Acute kidney injury most likely related to tumor lysis. On admission creatinine of 0.99. CT of abdomen on the with kidney with normal in size and shape. There is no mass, stone or hydronephrosis. Lobulated cysts in the upper poles of both kidneys with some benign-appearing calcification on the left Creatinine stable Plan Will monitor renal panel periodically Avoid nephrotoxins. Encouraged to elevate legs throughout day Lasix increase to 40 mg BID and albumin added BID Hypokalemia at 2.9 on scheduled potassium replacement and extra ordered today. Plts and PRBC transfusions ordered. Patient seen and examined, agree with above. Told to eat more Potassium in the diet. (2) B-cell lymphoma ICD Codes: C85.10 - Unspecified B-cell lymphoma, unspecified site Status: Acute Plan: Oncology managing (3) Anemia ICD Codes: D64.9 - Anemia, unspecified Status: Acute Plan: Monitoring Transfusion today. (Demi Mendez MD) Problem Qualifiers (1) Anemia: Qualified Codes: D64.9 - Anemia, unspecified Janet Ribeiro September 18, 2017 09:32 Demi Mendez MD September 19, 2017 21:58
[2017-09-18] MEDS: ALBUMIN 25% INJ 100 ML IV SCH ×2 (11:20→21:16)
[2017-09-18] MEDS: FILGRASTIM INJ 480 MCG in DEXTROSE 5% IN WATER INJ 50 ML IV SCH ×2 (14:00)
[2017-09-18] MEDS ORDERED: SODIUM CHLOR 0.9% 250 ML INJ 250 ML IV ONE (14:30)
[2017-09-18] MEDS ORDERED: VANCOMYCIN INJ 2,000 MG in SODIUM CHLORID 0.9% 500 ML INJ 500 ML IV ONE (16:00)
--- NOTE | 2017-09-18 16:02 | HHI.IDPN ---
Note Infectious Disease Note Patient feels okay. Mouth feels sore and martinez when he takes potassium. No nausea or vomiting. Afebrile. WBC still depressed. Diagnosed with Burkitt lymphoma. The patient just completed chemotherapy on . He has been receiving antibiotics for E. coli bacteremia, which was cultured on 09/06. PAST MEDICAL HISTORY: Asthma, gastroesophageal reflux disease, hypertension, history of prostate cancer, history of prostatectomy, history of cholecystectomy, history of coronary stent x 2. ALLERGIES: PENICILLIN. THE PATIENT RECALLS ALLERGIC REACTION FROM CHILDHOOD, BUT NO SPECIFIC DETAILS. QUINOLONES, DIPHENHYDRAMINE, HYDROCODONE, MEPERIDINE. MEDICATIONS: Current Medications Medications (Trade) Dose Ordered Sig/Robert Route PRN Reason Start Time Stop Time Status Last Admin Dose Admin Sodium Chloride (NS Flush) 2 ml UNSCH PRN IV FLUSH FLUSH AFTER USING IV ACCESS 08/29/17 15:45 09/08/17 23:42 Sodium Chloride (NS Flush) 2 ml BID IV FLUSH 08/29/17 21:00 09/18/17 09:09 Pantoprazole Sodium (Protonix Inj) 40 mg DAILY IV PUSH 08/30/17 09:00 09/18/17 09:05 Ondansetron HCl (Zofran Inj) 4 mg Q6H PRN IV PUSH NAUSEA OR VOMITING 08/29/17 16:00 09/09/17 10:08 Albuterol/ Ipratropium (Duoneb Neb) 1 ampule Q2HR NEB PRN INH WHEEZING 08/29/17 16:00 09/04/17 23:32 Miscellaneous Information 1 [id number] XX 08/29/17 15:45 Chlorhexidine Gluconate (Chlorhexidine 2% Cloth) 3 pack Taper DAILY@04 TOP 08/30/17 04:00 08/26/18 03:59 09/13/17 05:13 Chlorhexidine Gluconate (Chlorhexidine 2% Cloth) 3 pack UNSCH PRN TOP HYGIENIC CARE 08/29/17 15:45 Senna/Docusate Sodium (Madina-Colace) 1 tab BID PO 08/29/17 21:00 09/18/17 09:08 Magnesium Hydroxide (Milk Of Magnesia Liq) 30 ml Q12H PRN PO Mild constipation 08/29/17 16:00 Sennosides (Senokot) 17.2 mg Q12H PRN PO Moderate constipation 08/29/17 16:00 Bisacodyl (Dulcolax Supp) 10 mg DAILY PRN RECTAL SEVERE CONSITIPATION 08/29/17 16:00 Lactulose (Lactulose Liq) 30 ml DAILY PRN PO SEVERE CONSITIPATION 08/29/17 16:00 Albuterol Sulfate (Proair Hfa Inh) 2 puff Q6H PRN INH SHORTNESS OF BREATH 08/29/17 18:00 09/13/17 11:05 Amlodipine Besylate (Norvasc) 10 mg DAILY PO 08/30/17 09:00 Future Hold 09/05/17 10:12 Budesonide/ Formoterol Fumarate (Symbicort 160-4.5 Mcg Inh) 2 puff BID INH 08/29/17 21:00 09/18/17 09:09 Ramipril (Altace) 10 mg DAILY PO 08/30/17 14:00 Future Hold 09/05/17 10:12 Morphine Sulfate (Morphine Inj) 2 mg Q4H PRN IV PUSH BREAKTHROUGH PAIN 09/01/17 16:00 09/17/17 23:07 Sodium Chloride (NS Flush) DAILY IVF 09/05/17 09:00 09/18/17 09:10 Heparin Sodium (Porcine) (Heparin Central Flush) DAILY IV FLUSH 09/05/17 09:00 09/18/17 09:09 Sodium Chloride (NS Flush) UNSCH PRN IVF SEE PROTOCOL 09/04/17 16:00 09/10/17 21:58 Heparin Sodium (Porcine) (Heparin Central Flush) UNSCH PRN IV FLUSH SEE PROTOCOL 09/04/17 16:00 Sodium Chloride (NS Flush) UNSCH PRN IVF SEE PROTOCOL 09/04/17 16:00 09/10/17 21:59 Terbutaline Sulfate (Brethine Inj) 1 mg UNSCH PRN SQ For Extravasation 09/06/17 10:15 Aztreonam 1000 mg/ Sodium Chloride 100 ml @ 200 mls/hr Q8H IV 09/06/17 12:00 09/18/17 12:21 Pharmacy Profile Note 0 ml @ 0 mls/hr UNSCH OTHER 09/07/17 18:00 Filgrastim 480 mcg/Dextrose 51.6 ml @ 100 mls/hr DAILY@14 IV 09/11/17 21:00 09/18/17 14:00 Chlorothiazide (Diuril) 250 mg BID@18 PO 09/11/17 20:00 09/18/17 09:08 Zinc Oxide (Desitin 40% Oint) 1 applic UNSCH PRN TOPICAL DIAPER RASH 09/12/17 09:30 09/13/17 18:07 Nystatin (Mycostatin Powder) 1 applic Q8HR TOPICAL 09/12/17 09:30 09/17/17 13:43 Fluconazole (Diflucan) 100 mg DAILY PO 09/13/17 09:00 09/18/17 09:06 Calcium Carbonate (Oscal) 1,000 mg BID PO 09/13/17 09:00 09/18/17 09:06 Lorazepam (Ativan) 0.5 mg Q6H PRN PO anxiety/ sleep 09/13/17 17:30 09/18/17 01:22 Multi-Ingredient Mouthwash/Gargle (Magic Mouthwash Adult Liq) 10 ml QID SWISH-SPIT 09/15/17 13:00 09/18/17 12:22 Simethicone (Mylicon Chew) 80 mg TID PRN CHEW gas 09/15/17 11:45 Potassium Bicarbonate (Effer-K Eff) 50 meq BID PO 09/15/17 21:00 09/18/17 09:06 Calcium Carbonate (Oscal) 500 mg DAILY PO 09/16/17 09:00 09/18/17 09:08 Multivitamins (Theragran) 1 tab DAILY PO 09/16/17 09:00 09/18/17 09:06 Oxycodone HCl (Roxicodone) 5 mg Q4H PRN PO pain 2-5 09/16/17 11:45 09/16/17 21:43 Oxycodone HCl (Roxicodone) 10 mg Q4H PRN PO pain 6-10 09/16/17 11:45 09/18/17 12:21 Acyclovir (Zovirax) 400 mg Q8HR PO 09/17/17 22:00 09/18/17 12:21 Nystatin (Mycostatin Liq) 5 ml QID SWISH-SWAL 09/17/17 21:00 09/18/17 12:21 Furosemide (Lasix Inj) 40 mg DAILY@0900,1800 IV PUSH 09/18/17 18:00 Albumin Human 100 ml @ 60 mls/hr Q12H IV 09/18/17 09:30 09/18/17 11:20 Sodium Chloride 250 ml @ 15 mls/hr ONCE ONCE IV 09/18/17 14:30 09/19/17 07:09 Vancomycin HCl 2000 mg/Sodium Chloride 520 ml @ 250 mls/hr ONCE ONCE IV 09/18/17 16:00 09/18/17 18:04 SOCIAL HISTORY: The patient resides in [place], [place]. No tobacco, rare alcohol use. No illicit drugs. Objective: Vital Signs Date Time Temp Pulse Resp B/P (MAP) Pulse Ox O2 Delivery O2 Flow Rate FiO2 09/18/17 14:45 98.2 87 20 122/62 93 09/18/17 14:02 98.9 85 20 106/49 93 09/18/17 11:04 Room Air 09/18/17 10:58 Room Air 09/18/17 09:01 98.4 88 18 121/65 (83) 96 09/18/17 06:52 98.6 88 16 122/67 95 09/18/17 06:36 98.5 81 18 116/69 94 09/18/17 04:39 98.6 91 18 122/67 (85) 94 09/18/17 04:05 75 09/18/17 00:31 79 09/18/17 00:00 98.6 95 18 121/68 (85) 95 09/17/17 20:39 Room Air 94 09/17/17 20:32 98.0 86 18 137/67 (90) 94 09/17/17 20:14 88 09/17/17 17:56 99.1 09/17/17 17:53 90 18 141/74 95 09/17/17 17:16 98.2 90 16 117/58 95 09/17/17 16:40 99.1 80 16 122/65 95 Laboratory Tests Test 09/17/17 05:30 09/18/17 04:25 White Blood Count 0.0 TH/MM3 0.0 TH/MM3 Red Blood Count 2.17 MIL/MM3 2.29 MIL/MM3 Hemoglobin 6.5 GM/DL 6.7 GM/DL Hematocrit 18.1 % 18.8 % Mean Corpuscular Volume 83.4 FL 82.3 FL Mean Corpuscular Hemoglobin 30.0 PG 29.4 PG Mean Corpuscular Hemoglobin Concent 35.9 % 35.7 % Red Cell Distribution Width 14.3 % 15.0 % Platelet Count 7 TH/MM3 11 TH/MM3 Mean Platelet Volume 6.5 FL 6.8 FL CBC Comment AUTO DIFF AUTO DIFF Differential Total Cells Counted 2 2 Lymphocytes % 50 % 50 % Monocytes % 50 % Neutrophils # (Manual) 0.0 TH/MM3 0.0 TH/MM3 Differential Comment FINAL DIFF MANUAL FINAL DIFF MANUAL Platelet Estimate RARE RARE Platelet Morphology Comment NORMAL NORMAL Neutrophils % (Manual) 50 % Plasma Cells % Red Cell Morphology Comment NORMAL Laboratory Tests Test 09/17/17 05:30 09/18/17 04:25 Blood Urea Nitrogen 39 MG/DL 38 MG/DL Creatinine 1.13 MG/DL 1.06 MG/DL Random Glucose 140 MG/DL 130 MG/DL Total Protein 4.1 GM/DL 4.3 GM/DL Calcium Level 6.9 MG/DL 7.0 MG/DL Sodium Level 145 MEQ/L 144 MEQ/L Potassium Level 3.0 MEQ/L 2.9 MEQ/L Chloride Level 106 MEQ/L 105 MEQ/L Carbon Dioxide Level 31.0 MEQ/L 32.0 MEQ/L Anion Gap 8 MEQ/L 7 MEQ/L Estimat Glomerular Filtration Rate 64 ML/MIN 68 ML/MIN Protein Corrected Calcium 8.6 MG/DL 8.5 MG/DL Albumin 1.7 GM/DL Magnesium Level 1.6 MG/DL Alkaline Phosphatase 73 U/L Aspartate Amino Transf (AST/SGOT) 10 U/L Alanine Aminotransferase (ALT/SGPT) 30 U/L Total Bilirubin 2.7 MG/DL Direct Bilirubin 1.7 MG/DL Indirect Bilirubin 1.0 MG/DL Imaging: Chest X-Ray 09/05/17 0000 Signed Impressions: Service Date/Time: Tuesday, September 05, 2017 01:50 - CONCLUSION: 1. Right PICC line in superior vena cava. Subsegmental basilar airspace disease. No effusion or pneumothorax. Cory Camarena MD PICC Line Insertion 09/04/17 0600 Signed Impressions: Service Date/Time: Monday, September 04, 2017 15:12 - CONCLUSION: 1. Uncomplicated central venous Power PICC line placement. 2. The PICC line can be used immediately. Santy Burciaga Jr., MD Lumbar Puncture Fluoroscopy 09/04/17 0000 Signed Impressions: Service Date/Time: Monday, September 04, 2017 15:12 - CONCLUSION: Uncomplicated fluoroscopically guided lumbar puncture with pressures as above. Intrathecal methotrexate was administered. Santy Burciaga Jr., MD Chest CT 09/01/17 0000 Signed Impressions: Service Date/Time: Friday, September 01, 2017 16:48 - CONCLUSION: 1. No definite evidence for metastatic disease to the thorax. 2. 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 3. Scattered atelectasis and scarring in the lungs. 4. Moderate coronary calcifications. Cory Camarena MD Abdomen/Pelvis CT 09/01/17 0000 Signed Impressions: Service Date/Time: Friday, September 01, 2017 16:48 - CONCLUSION: 1. Post surgical changes with findings of cholecystectomy and prostatectomy. 2. Scattered diverticular disease of the colon without diverticulitis. 3. Lobulated cyst in the upper poles of both kidneys with some calcification on the left. 4. Retroperitoneal fat herniates through the left hemidiaphragm into the posterior left lung base. 5. No acute intraperitoneal or pelvic process to explain current clinical symptoms Gavin Lynn MD Bone Biopsy CT 08/30/17 1535 Signed Impressions: Service Date/Time: August 16:19 - CONCLUSION: 1. Uncomplicated CT guided bone marrow aspirate. 2. Uncomplicated CT guided bone marrow biopsy. Srikanth Ambrosio MD Thoracic Spine CT 08/30/1799 Signed Impressions: Service Date/Time: August 01:37 - CONCLUSION: 1. No fracture, subluxation or other acute abnormality of the thoracic spine. 2. Scoliosis and mild multifocal degenerative changes as above. 3. Complex appearing cystic structures of the upper poles of both kidneys. Comparison to any previous outside facility studies is recommended to confirm chronicity and stability. Contrast enhanced study of the abdomen suggested if felt clinically indicated, preferably MRI if there are no contraindications. Tim Jones MD Lumbar Spine CT 08/30/17 0100 Signed Impressions: Service Date/Time: August 01:37 - CONCLUSION: 1. No acute fracture or acute subluxation of the lumbar spine. 2. 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 3. Mild spinal and bilateral foraminal stenosis at L4/L5. 4. Mild right and moderate left foraminal stenosis at L5/S1. 5. Benign vertebral body hemangioma of L1. No concerning lumbar spine bone lesion. Tim Jones MD Head CT 08/30/17 0100 Signed Impressions: Service Date/Time: August 01:37 - CONCLUSION: Small frontal madina-falcine subdural blood is unchanged. Tim Jones MD Carotid Artery Ultrasound 08/30/17 0000 Signed Impressions: Service Date/Time: August 07:52 - CONCLUSION: 1. Diffuse calcified plaque throughout carotid arteries bilaterally with resultant moderate, 50-69%%, stenosis of the internal carotid arteries bilaterally and likely moderate stenosis of the left common carotid artery. 2. Antegrade vertebral artery flow bilaterally. Lopez Taylor MD Brain MRI 08/30/17 0000 Signed Impressions: Service Date/Time: August 09:27 - CONCLUSION: 1. Right frontal parafalcine abnormality on CT exam corresponds to a small meningioma. No definitive intra-or extra-axial hemorrhage. Lopez Taylor MD PHYSICAL EXAMINATION: GENERAL: No acute distress. HEENT: Extraocular movements are grossly intact. Pupils reactive to light. No icterus. Oropharynx, mucosa is somewhat dry. Ulcers at the posterior oropharynx and upper palate. NECK: Supple without adenopathy. LUNGS: Breath sounds are clear. HEART: Regular S1 and S2. No murmurs, rubs or gallop. ABDOMEN: Obese, soft, diminished bowel sounds. Nontender. : Swelling of the scrotum. EXTREMITIES: Diffuse 3+ edema involving both upper and lower extremities. Punctate petechial lesions at the lower extremities. Some petechiae at the right upper arm area of IV catheter. SKIN: No diffuse rash. NEUROLOGIC: Nonfocal. PSYCHIATRIC: Calm and cooperative. IMPRESSION: 1. Bacteremia due to Escherichia coli. Being treated. 2. Persistent profound neutropenia and thrombocytopenia in patient with Burkitt lymphoma. Status post chemotherapy. Patient at high risk for infection. 3. Scrotal edema. 4. Diffuse anasarca. RECOMMENDATIONS: 1. Continue aztreonam intravenous. 2. Continue Diflucan. 3. Continue acyclovir for herpetic coverage. 4. Continue oral nystatin. 5. Monitor the temperature. 6. Obtain blood cultures if he develops fever. 7. Broaden antibiotics if he develops fever. Estevan Benjamin MD September 18, 2017 16:02
[2017-09-19] VITALS (12 sets, daily range): BP systolic 118–154; BP diastolic 53–77; PULSE 84–109; RESP 16–20; TEMP 97.9–98.8; O2SAT 92–95
[2017-09-19] MEDS: CHLORHEXIDINE GLUCONATE 2 % 1 PACK (2 CLOTHS) TOP SCH (03:52)
[2017-09-19] MEDS: LORazepam 0.5 MG TAB PO PRN (04:56)
[2017-09-19] MEDS: AZTREONAM INJ 1,000 MG in SODIUM CHLORIDE 0.9% INJ 100 ML IV SCH ×3 (04:57→19:58)
[2017-09-19] MEDS: ACYCLOVIR 200 MG CAP PO SCH ×3 (04:57→21:20)
[2017-09-19 05:24] LABS: MEAN CELL VOLUME 83.7 FL (80.0-100.0); MEAN CORPUSCULAR HEMOGLOBIN 29.7 PG (27.0-34.0); MEAN CORPUSCULAR HGB CONC 35.5 % (32.0-36.0); PLATELET COUNT 11 TH/MM3 (150-450); RED BLOOD COUNT 2.24 MIL/MM3 (4.50-5.90); RED CELL DISTRIBUTION WIDTH 15.2 % (11.6-17.2); WHITE BLOOD COUNT 0.1 TH/MM3 (4.0-11.0)
[2017-09-19 05:35] LABS: HEMATOCRIT 18.7 % (39.0-51.0); HEMOGLOBIN 6.7 GM/DL (13.0-17.0)
[2017-09-19 05:36] LABS: MEAN PLATELET VOLUME 7.5 FL (7.0-11.0)
[2017-09-19 05:41] LABS: BICARBONATE 35.2 MEQ/L (21.0-32.0); CREATININE 1.17 MG/DL (0.60-1.30); DIRECT BILIRUBIN ADULT 2.2 MG/DL (0.0-0.2); INDIRECT BILIRUBIN 1.1 MG/DL (0.0-0.8); MAGNESIUM 1.7 MG/DL (1.5-2.5); RANDOM VANCOMYCIN 22.1 COMMENT; TOTAL BILIRUBIN ADULT 3.3 MG/DL (0.2-1.0)
[2017-09-19] MEDS: NYSTATIN 100,000 U/GM PWD 15 GM BTL TOPICAL SCH ×3 (06:00→21:34)
[2017-09-19] MEDS: POTASSIUM CHLOR 20 MEQ PREMIX 100 ML IV SCH ×2 (06:19→12:46)
[2017-09-19 07:14] LABS: BANDS 15 % (0-6); BLASTS 5 % (0-0); LYMPHOCYTES 35 % (9-44); NEUTROPHIL # MANUAL DIFF 0.1 TH/MM3 (1.8-7.7); POLYS (SEG NEUTROPHILS) 40 % (16-70); PROMYELOCYTES 5 % (0-0)
[2017-09-19 07:33] LABS: CALCIUM-PROTEIN CORRECTED 8.4 MG/DL (8.5-10.1); TOTAL PROTEIN 4.5 GM/DL (6.4-8.2)
[2017-09-19] MEDS: ALBUMIN 25% INJ 100 ML IV SCH ×2 (08:33→21:20)
[2017-09-19] MEDS: NYSTAT/DIPHENHY/LIDO MOUTHWASH (Adult) 120ML SWISH-SPIT SCH ×4 (08:33→21:21)
[2017-09-19] MEDS: DOCUSATE SODIUM 50 MG/SENNA 8.6 MG TAB PO SCH ×2 (08:35→21:00)
[2017-09-19] MEDS: POTASSIUM BICARBONATE 25 MEQ EFFERVESCENT TAB PO SCH ×3 (08:35→18:00)
[2017-09-19] MEDS: MULTIVITAMIN TAB PO SCH (08:35)
[2017-09-19] MEDS: PANTOPRAZOLE SODIUM 40 MG VIAL IV PUSH SCH (08:36)
[2017-09-19] MEDS: FLUCONAZOLE 100 MG TAB PO SCH (08:36)
[2017-09-19] MEDS: BUDESONIDE-FORMOTEROL 160/4.5 MCG INHALER INH SCH ×2 (08:47→21:21)
[2017-09-19] MEDS: SODIUM CHLORIDE 0.9% FLUSH 10 ML FLUSH IV FLUSH SCH ×2 (09:00→21:21)
[2017-09-19] MEDS: NYSTATIN SUSP 500,000 U/5 ML CUP SWISH-SWAL SCH ×3 (09:00→18:36)
[2017-09-19] MEDS: CALCIUM CARBONATE 1.25 GM (CA 500 MG) TAB PO SCH (09:00)
[2017-09-19] MEDS: FUROSEMIDE 20 MG/2 ML VIAL IV PUSH SCH ×2 (09:00→18:42)
[2017-09-19] MEDS: SODIUM CHLORIDE 0.9% FLUSH 10 ML FLUSH IVF SCH (09:00)
--- NOTE | 2017-09-19 10:07 | PD.ONC.PN ---
Subjective Subjective Remarks Afebrile Pt sitting up on bedside commode in no distress Reports he feels like the swelling in his hands and arms is much improved. Hoping that the swelling in his scrotum will decrease soon Objective Data Date Time Temp Pulse Resp B/P (MAP) Pulse Ox O2 Delivery O2 Flow Rate FiO2 09/19/17 07:42 98.0 93 16 133/74 94 09/19/17 06:27 97.9 93 16 126/62 93 09/19/17 05:57 16 09/19/17 04:49 98.0 84 18 132/72 (92) 95 09/19/17 00:12 97.9 95 18 118/63 (81) 92 09/18/17 23:01 98 09/18/17 23:00 Room Air 09/18/17 20:00 Room Air 09/18/17 20:00 98.7 103 18 119/59 (79) 96 09/18/17 20:00 103 09/18/17 17:55 Room Air 09/18/17 17:00 98.6 84 18 136/67 (90) 94 09/18/17 16:35 82 09/18/17 14:45 98.2 87 20 122/62 93 09/18/17 14:02 98.9 85 20 106/49 93 09/18/17 12:20 98 09/18/17 11:04 Room Air 09/18/17 10:58 Room Air 09/19/17 09/19/17 09/19/17 07:00 15:00 23:00 Intake Total 300 ml Output Total 1850 ml Balance -1850 ml 300 ml Result Diagram: 09/19/17 0506 09/19/17 0506 Laboratory Results Laboratory Tests Test 09/18/17 12:19 09/19/17 05:06 Random Vancomycin Level 13.6 COMMENT 22.1 COMMENT White Blood Count 0.1 TH/MM3 Red Blood Count 2.24 MIL/MM3 Hemoglobin 6.7 GM/DL Hematocrit 18.7 % Mean Corpuscular Volume 83.7 FL Mean Corpuscular Hemoglobin 29.7 PG Mean Corpuscular Hemoglobin Concent 35.5 % Red Cell Distribution Width 15.2 % Platelet Count 11 TH/MM3 Mean Platelet Volume 7.5 FL CBC Comment AUTO DIFF Differential Total Cells Counted 20 Neutrophils % (Manual) 40 % Band Neutrophils % 15 % Lymphocytes % 35 % Neutrophils # (Manual) 0.1 TH/MM3 Promyelocytes 5 % Differential Comment FINAL DIFF MANUAL Blastocytes 5 % Platelet Estimate RARE Platelet Morphology Comment NORMAL Haptoglobin 203 MG/DL Blood Urea Nitrogen 36 MG/DL Creatinine 1.17 MG/DL Random Glucose 138 MG/DL Total Protein 4.5 GM/DL Albumin 2.0 GM/DL Calcium Level 7.0 MG/DL Magnesium Level 1.7 MG/DL Alkaline Phosphatase 90 U/L Aspartate Amino Transf (AST/SGOT) 11 U/L Alanine Aminotransferase (ALT/SGPT) 34 U/L Lactate Dehydrogenase 245 U/L Total Bilirubin 3.3 MG/DL Direct Bilirubin 2.2 MG/DL Sodium Level 145 MEQ/L Potassium Level 2.8 MEQ/L Chloride Level 104 MEQ/L Carbon Dioxide Level 35.2 MEQ/L Anion Gap 6 MEQ/L Estimat Glomerular Filtration Rate 61 ML/MIN Protein Corrected Calcium 8.4 MG/DL Indirect Bilirubin 1.1 MG/DL Administered Medications Medications (Trade) Dose Ordered Sig/Robert Route PRN Reason Start Time Stop Time Status Last Admin Dose Admin Sodium Chloride (NS Flush) 2 ml UNSCH PRN IV FLUSH FLUSH AFTER USING IV ACCESS 08/29/17 15:45 09/08/17 23:42 Sodium Chloride (NS Flush) 2 ml BID IV FLUSH 08/29/17 21:00 09/18/17 09:09 Pantoprazole Sodium (Protonix Inj) 40 mg DAILY IV PUSH 08/30/17 09:00 09/19/17 08:36 Ondansetron HCl (Zofran Inj) 4 mg Q6H PRN IV PUSH NAUSEA OR VOMITING 08/29/17 16:00 09/09/17 10:08 Albuterol/ Ipratropium (Duoneb Neb) 1 ampule Q2HR NEB PRN INH WHEEZING 08/29/17 16:00 09/04/17 23:32 Chlorhexidine Gluconate (Chlorhexidine 2% Cloth) 3 pack Taper DAILY@04 TOP 08/30/17 04:00 08/26/18 03:59 09/13/17 05:13 Senna/Docusate Sodium (Madina-Colace) 1 tab BID PO 08/29/17 21:00 09/19/17 08:35 Albuterol Sulfate (Proair Hfa Inh) 2 puff Q6H PRN INH SHORTNESS OF BREATH 08/29/17 18:00 09/13/17 11:05 Amlodipine Besylate (Norvasc) 10 mg DAILY PO 08/30/17 09:00 Future Hold 09/05/17 10:12 Budesonide/ Formoterol Fumarate (Symbicort 160-4.5 Mcg Inh) 2 puff BID INH 08/29/17 21:00 09/19/17 08:47 Ramipril (Altace) 10 mg DAILY PO 08/30/17 14:00 Future Hold 09/05/17 10:12 Morphine Sulfate (Morphine Inj) 2 mg Q4H PRN IV PUSH BREAKTHROUGH PAIN 09/01/17 16:00 09/17/17 23:07 Sodium Chloride (NS Flush) DAILY IVF 09/05/17 09:00 09/18/17 09:10 Heparin Sodium (Porcine) (Heparin Central Flush) DAILY IV FLUSH 09/05/17 09:00 09/18/17 09:09 Sodium Chloride (NS Flush) UNSCH PRN IVF SEE PROTOCOL 09/04/17 16:00 09/10/17 21:58 Sodium Chloride (NS Flush) UNSCH PRN IVF SEE PROTOCOL 09/04/17 16:00 09/10/17 21:59 Aztreonam 1000 mg/ Sodium Chloride 100 ml @ 200 mls/hr Q8H IV 09/06/17 12:00 09/19/17 04:57 Filgrastim 480 mcg/Dextrose 51.6 ml @ 100 mls/hr DAILY@14 IV 09/11/17 21:00 09/18/17 14:00 Zinc Oxide (Desitin 40% Oint) 1 applic UNSCH PRN TOPICAL DIAPER RASH 09/12/17 09:30 09/13/17 18:07 Nystatin (Mycostatin Powder) 1 applic Q8HR TOPICAL 09/12/17 09:30 09/17/17 13:43 Fluconazole (Diflucan) 100 mg DAILY PO 09/13/17 09:00 09/19/17 08:36 Calcium Carbonate (Oscal) 1,000 mg BID PO 09/13/17 09:00 09/18/17 21:18 Lorazepam (Ativan) 0.5 mg Q6H PRN PO anxiety/ sleep 09/13/17 17:30 09/19/17 04:56 Multi-Ingredient Mouthwash/Gargle (Magic Mouthwash Adult Liq) 10 ml QID SWISH-SPIT 09/15/17 13:00 09/19/17 08:33 Potassium Bicarbonate (Effer-K Eff) 50 meq BID PO 09/15/17 21:00 09/19/17 08:35 Calcium Carbonate (Oscal) 500 mg DAILY PO 09/16/17 09:00 09/18/17 09:08 Multivitamins (Theragran) 1 tab DAILY PO 09/16/17 09:00 09/19/17 08:35 Oxycodone HCl (Roxicodone) 5 mg Q4H PRN PO pain 2-5 09/16/17 11:45 09/16/17 21:43 Oxycodone HCl (Roxicodone) 10 mg Q4H PRN PO pain 6-10 09/16/17 11:45 09/19/17 04:57 Acyclovir (Zovirax) 400 mg Q8HR PO 09/17/17 22:00 09/19/17 04:57 Nystatin (Mycostatin Liq) 5 ml QID SWISH-SWAL 09/17/17 21:00 09/18/17 21:18 Furosemide (Lasix Inj) 40 mg DAILY@0900,1800 IV PUSH 09/18/17 18:00 09/18/17 18:06 Albumin Human 100 ml @ 60 mls/hr Q12H IV 09/18/17 09:30 09/19/17 08:33 Objective Remarks GENERAL: Older male sitting up on bedside commode in no obvious distress SKIN: Warm and dry. HEAD: Normocephalic. Somewhat hard of hearing EYES: No injection or drainage. NECK: Supple, trachea midline. CARDIOVASCULAR: Regular rate and rhythm without murmurs. RESPIRATORY: Clear posteriorly, mildly diminished in the bases. Breathing unlabored at rest. GASTROINTESTINAL: Abdomen soft, non-tender, nondistended. : Scrotal edema. Garnett catheter to bedside bag with clear kris urine noted EXTREMITIES: No cyanosis. Significant swelling to bilateral lower extremities with petechiae noted MUSCULOSKELETAL: Generalized weakness. NEUROLOGICAL: No obvious focal deficit. Awake, alert, and oriented x3. 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 ++also has bone pain, back pain, elevated LDH, as well as the sweats that suggests a more systemic manifestation of bone marrow disorder. ++ Nucleated red cells seen on peripheral smear. no acute blasts. CT C/A/P showing no LAD Discussed w/ oncologist in [facility] pt's home town coordination of treatment when he leaves here. He has flight schedule 09/22/17. agreed to assume care, plan to fax records, appt to be made for the Sunday after his return home. 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 09/04: PICC line placement today, start R-EPOCH, give IT MTX. 09/05: Rituxan infusion complete. patient in TLS. transferred to ICU. sanitation worker cleaning equipment consulted. 09/06: start EPOCH, window closing as patient is now leukopenic. give blood and platelets. 09/07: give D2 EPOCH. give 1 unit pRBC, check repeat H/H. 09/08: give D3 EPOCH. 1 unit pRBC, 1 unit platelets. 09/09: D4 EPOCH, 2 units platelets. 09/10: D5--finish 4th bag of EPOCH, give Cytoxan this evening. 09/13/17: Continue G-CSF support 09/14/17: Transfuse 2 units packed red blood cells, 1 unit platelets 09/17/17: continue Neupogen. give 1 unit prbc 1 unit platelets. 09/18/17: start wound care instructions. 1 unit pRBC, 1 unit platelets. (2) Anasarca ICD Codes: R60.1 - Generalized edema Plan: --nephrology following. --receiving Lasix IV. --start Albumin infusions. (3) Skin breakdown ICD Codes: L90.9 - Atrophic disorder of skin, unspecified Plan: --appreciate wound care assistance. --Daly mattress started BID and PRN to Left Buttock 1. [place] Cavilon skin barrier film on purple non blanching pressure injury after gently cleansing 2. Apply Calazime skin protectant paste and leave open to air 3. Use ONLY disposable under pads for moisture (NO THICK COTTON UNDERPADS/DRAW SHEETS) *Reposition patient from left to right sides only. Limit time spent on back for therapies only* Assessment 72y/o male with new diagnosis of Burkitt's lymphoma in the bone marrow given R- EPOCH chemo Plan 1. Transfuse 1 unit packed red blood cells with 1 unit platelets 2. Continue transfusion for hemoglobin less than 7 and platelets less than 15, 000 3. Anticipate count recovery to hopefully begin in the next few days 4. Continue Neupogen 5. Electrolyte replacement per attending Attending Statement The exam, history, and the medical decision-making described in the above note were completed with the assistance of the mid-level provider. I reviewed and agree with the findings presented. I attest that I had a [id number] encounter with the patient on the same day, and personally performed and documented my assessment and findings in the medical record. Oral and IV KCL supplement given. Pt tired. LE edema. Noted increase in WBC, still transfusion of RBC and platelet dependent. Family at bedside, previous discussion it's not likely he will be able to go back on Sunday. Very deconditioned still pancytopenic. Tiara Gonzalez September 19, 2017 10:07 Shahla Duron MD September 19, 2017 17:16
--- NOTE | 2017-09-19 10:09 | HHI.PR ---
Subjective Remarks Follow-up: multiple medical problems. Patient with significant scrotal edema with excoriations and monitor for signs of infection patient is pancytopenic and at risk of infection. Will give extra lasix today, monitor kidney function. Will also be transfused today Still with electrolytes abnormality, replaced Pain is improving No shortness of breath or cp, no fever or chills. No coughing. With insomnia add temazepam Objective Vitals Vital Signs Date Time Temp Pulse Resp B/P (MAP) Pulse Ox O2 Delivery O2 Flow Rate FiO2 09/19/17 07:42 98.0 93 16 133/74 94 09/19/17 06:27 97.9 93 16 126/62 93 09/19/17 05:57 16 09/19/17 04:49 98.0 84 18 132/72 (92) 95 09/19/17 00:12 97.9 95 18 118/63 (81) 92 09/18/17 23:01 98 09/18/17 23:00 Room Air 09/18/17 20:00 Room Air 09/18/17 20:00 98.7 103 18 119/59 (79) 96 09/18/17 20:00 103 09/18/17 17:55 Room Air 09/18/17 17:00 98.6 84 18 136/67 (90) 94 09/18/17 16:35 82 09/18/17 14:45 98.2 87 20 122/62 93 09/18/17 14:02 98.9 85 20 106/49 93 09/18/17 12:20 98 09/18/17 11:04 Room Air 09/18/17 10:58 Room Air I/O 09/18/17 09/18/17 09/18/17 09/19/17 09/19/17 09/19/17 07:00 15:00 23:00 07:00 15:00 23:00 Intake Total 200 ml 682 ml 1790 ml 300 ml Output Total 1450 ml 3375 ml 1850 ml Balance -1250 ml 682 ml -1585 ml -1850 ml 300 ml Intake Oral 1790 ml IV Total 200 ml Packed Cells 400 ml Platelets 282 ml 285 ml Blood Product IV Normal Saline Flush 15 ml Output Urine Total 1450 ml 3375 ml 1850 ml # Bowel Movements 1 Result Diagram: 09/19/17 0506 09/19/17 0506 Imaging Last Impressions Chest X-Ray 09/05/17 0000 Signed Impressions: Service Date/Time: Tuesday, September 05, 2017 01:50 - CONCLUSION: 1. Right PICC line in superior vena cava. Subsegmental basilar airspace disease. No effusion or pneumothorax. Cory Camarena MD PICC Line Insertion 09/04/17 0600 Signed Impressions: Service Date/Time: Monday, September 04, 2017 15:12 - CONCLUSION: 1. Uncomplicated central venous Power PICC line placement. 2. The PICC line can be used immediately. Santy Burciaga Jr., MD Lumbar Puncture Fluoroscopy 09/04/17 0000 Signed Impressions: Service Date/Time: Monday, September 04, 2017 15:12 - CONCLUSION: Uncomplicated fluoroscopically guided lumbar puncture with pressures as above. Intrathecal methotrexate was administered. Santy Burciaga Jr., MD Chest CT 09/01/17 0000 Signed Impressions: Service Date/Time: Friday, September 01, 2017 16:48 - CONCLUSION: 1. No definite evidence for metastatic disease to the thorax. 2. 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 3. Scattered atelectasis and scarring in the lungs. 4. Moderate coronary calcifications. Cory Camarena MD Abdomen/Pelvis CT 09/01/17 0000 Signed Impressions: Service Date/Time: Friday, September 01, 2017 16:48 - CONCLUSION: 1. Post surgical changes with findings of cholecystectomy and prostatectomy. 2. Scattered diverticular disease of the colon without diverticulitis. 3. Lobulated cyst in the upper poles of both kidneys with some calcification on the left. 4. Retroperitoneal fat herniates through the left hemidiaphragm into the posterior left lung base. 5. No acute intraperitoneal or pelvic process to explain current clinical symptoms Gavin Lynn MD Bone Biopsy CT 08/30/17 1535 Signed Impressions: Service Date/Time: August 16:19 - CONCLUSION: 1. Uncomplicated CT guided bone marrow aspirate. 2. Uncomplicated CT guided bone marrow biopsy. Srikanth Ambrosio MD Thoracic Spine CT 08/30/17 0100 Signed Impressions: Service Date/Time: August 01:37 - CONCLUSION: 1. No fracture, subluxation or other acute abnormality of the thoracic spine. 2. Scoliosis and mild multifocal degenerative changes as above. 3. Complex appearing cystic structures of the upper poles of both kidneys. Comparison to any previous outside facility studies is recommended to confirm chronicity and stability. Contrast enhanced study of the abdomen suggested if felt clinically indicated, preferably MRI if there are no contraindications. Tim Jones MD Lumbar Spine CT 08/30/17 0100 Signed Impressions: Service Date/Time: August 01:37 - CONCLUSION: 1. No acute fracture or acute subluxation of the lumbar spine. 2. 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 3. Mild spinal and bilateral foraminal stenosis at L4/L5. 4. Mild right and moderate left foraminal stenosis at L5/S1. 5. Benign vertebral body hemangioma of L1. No concerning lumbar spine bone lesion. Tim Jones MD Head CT 08/30/17 0100 Signed Impressions: Service Date/Time: August 01:37 - CONCLUSION: Small frontal maddy-falcine subdural blood is unchanged. Tim Jones MD Carotid Artery Ultrasound 08/30/17 0000 Signed Impressions: Service Date/Time: August 07:52 - CONCLUSION: 1. Diffuse calcified plaque throughout carotid arteries bilaterally with resultant moderate, 50-69%%, stenosis of the internal carotid arteries bilaterally and likely moderate stenosis of the left common carotid artery. 2. Antegrade vertebral artery flow bilaterally. Lopez Taylor MD Brain MRI 08/30/17 0000 Signed Impressions: Service Date/Time: August 09:27 - CONCLUSION: 1. Right frontal parafalcine abnormality on CT exam corresponds to a small meningioma. No definitive intra-or extra-axial hemorrhage. Lopez Taylor MD Objective Remarks General appearance: Very pleasant elderly gentleman, awake, weak, ill-appearing Cardiovascular: Regular heart sounds, no murmurs Respiratory: Clear bilateral, good air entry, no wheezes Abdomen: soft, non-tender, no rebound. Extremities: warm and well perfused, 3+ pitting edema : scrotal edema Procedures Bone marrow biopsy 08/30/2017. Line: PICC A/P Problem List: (1) Anemia ICD Code: D64.9 - Anemia, unspecified Status: Acute (2) Thrombocytopenia ICD Code: D69.6 - Thrombocytopenia, unspecified Status: Acute (3) GI bleed ICD Code: K92.2 - Gastrointestinal hemorrhage, unspecified Status: Acute (4) Back pain ICD Code: M54.9 - Dorsalgia, unspecified Status: Acute (5) History of AR (myocardial infarction) ICD Code: I25.2 - Old myocardial infarction (6) B-cell lymphoma ICD Code: C85.10 - Unspecified B-cell lymphoma, unspecified site Status: Acute (7) Abnormal head CT ICD Code: R93.0 - Abnormal findings on diagnostic imaging of skull and head, not elsewhere classified (8) Hearing loss ICD Code: H91.90 - Unspecified hearing loss, unspecified ear (9) Leukocytosis ICD Code: D72.829 - Elevated white blood cell count, unspecified Assessment and Plan 72y/o male with anemia + thrombocytopenia. History of prostate cancer, status post prostatectomy, coronary artery disease, s/p stent placement. 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 Septic shock - resolved E coli and strep viridans bacteremia - repeat blood cx are negative to date. Etiology of E coli in blood - No evidence of a UTI based on symptoms. ID consulted for further recommendation. Continue IV aztreonam for now.Echocardiogram shows an EF of 55-60% with moderate concentric left ventricular hypertrophy. No vegetation reported. Tumor lysis syndrome - Resolved. Allopurinol on hold. Monitor closely. Hyperkalemia now hypokalemia and hypocalcemia.-Continue to replace. Monitor closely. LUCA/hypernatremia- creatinine trending down, good urine output. Continue half normal saline due to hypernatremia. Monitor BMPs every 6 hours. Cautioned to not overcorrect quickly sodium levels. Encourage p.o. hydration (250ml water q4 -6hrs while awake). Nephrology following, appreciate recs. Pt has been started on diuril. Monitor Cr closely. Metabolic acidosis - improved Pancytopenia - requiring multiple transfusions ( ~daily). Transfusion and G- CSF per oncology. Transfuse 1 unit packed red blood cells and 1U PLT today 09/19/17 Transfuse to keep platelets greater than 10,000, hemoglobin greater than 7.5 Continue Neupogen Burkitt's lymphoma receiving chemo. Management per hematology History of prostate cancer status post XRT Diarrhea - seems to have resolved, monitor. Oral thrush give magic wash Scrotal edema/escoriations worsening LE edema. Give lasix 20 mg IV scheduled and albumin IV. Monitor UOP. , monitor closely kidney function. Replenish electrolytes. Consult wound care, discussed with [facility] wound care and with the nurse . Recommendation sfor wound care. Scrotal tears noted, pt having pain with urination due to urine touching those open tears and burning. Dr. Duron doesn't recommend placing a jensen as he is at high risk for bleeding due to his low plt count and also high risk for infection due to his neutropenia. Desitin cream and lidocaine jelly to be applied. Keep pt dry as much as possible. Place a condom catheter, will do but at this time, edema is too much and this cannot be done. Nystatin powder also ordered Patient however with significant scrotal edema and pain, has a Jensen placed with orange urine, fairly good OP. Insomnia: Add temazepam Discharge Planning Continue to replace electrolytes. Monitor sodium levels closely. Transfuse per heme/onc recs. CM assisting with DC planning as family wishes to pursue care in [place] has a plane ticket for 09/22/17 Transfuse 1U PRBC and 1U PLT today again 09/19/17 Transfuse to keep platelets greater than 10,000, hemoglobin greater than 7.5 Discussed with the patient, nurse, family at bedside, Tricia Davila hem/onc CLAUDIA Problem Qualifiers (1) Anemia: Qualified Codes: D64.9 - Anemia, unspecified (2) Back pain: Qualified Codes: M54.9 - Dorsalgia, unspecified (3) Hearing loss: Qualified Codes: H91.92 - Unspecified hearing loss, left ear (4) Leukocytosis: Qualified Codes: D72.829 - Elevated white blood cell count, unspecified Adelaide Grande MD September 19, 2017 10:09
--- NOTE | 2017-09-19 12:26 | HHI.NPPN ---
Subjective General Problems: Edema Renal Failure: Acute History of Present Illness Patient is a 72 year old male with a past medical history of prostate cancer, asthma, gastroesophageal reflux, Muñoz's esophagus,hypertension, new anemia, new thrombocytopenia, rotator cuff injury, and back pain. 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 Patient was receiving Rituxan last night and developed a reaction with low grade temperature, pain, and tremor. Plan to transfer patient to intensive care unit as patient is at risk for fluid overload with blood transfusions and acute kidney injury. Nephrology is consulted for acute kidney injury with creatinine of 2.44 with a admission creatinine of 0.99. HGB is low at 7.2, Plt of 27, NA 148, CO2 14.5. Patient is resting comfortably now with his only complaint is that is dizzy with ambulation. Additional Remarks Bilateral lower extremity edema continues. No shortness of breath. Urinary output has increased 5.2 liters over 24 hours. (Janet Ribeiro) Review of Systems Respiratory Respiratory Remarks Denies any SOB (Janet Ribeiro) Cardiovascular Cardiac: Edema Cardiac Remarks Denies any CP (Janet Ribeiro) Gastrointestinal GI Remarks Denies any abdominal pain (Janet Ribeiro) Objective Data Data 09/19/17 09/20/17 19:00 07:00 Intake Total 300 ml Balance 300 ml Platelets 285 ml Blood Product IV Normal Saline Flush 15 ml Vital Signs Date Time Temp Pulse Resp B/P (MAP) Pulse Ox O2 Delivery O2 Flow Rate FiO2 09/19/17 07:42 98.0 93 16 133/74 94 09/19/17 06:27 97.9 93 16 126/62 93 09/19/17 05:57 16 09/19/17 04:49 98.0 84 18 132/72 (92) 95 09/19/17 00:12 97.9 95 18 118/63 (81) 92 09/18/17 23:01 98 09/18/17 23:00 Room Air 09/18/17 20:00 Room Air 09/18/17 20:00 98.7 103 18 119/59 (79) 96 09/18/17 20:00 103 09/18/17 17:55 Room Air 09/18/17 17:00 98.6 84 18 136/67 (90) 94 09/18/17 16:35 82 09/18/17 14:45 98.2 87 20 122/62 93 09/18/17 14:02 98.9 85 20 106/49 93 (Janet Ribeiro) -: 09/19/17 0506 09/19/17 0506 Physical Exam General Appearance: No Acute Distress, Comfortable, Anxious (Janet Ribeiro) Throat Throat Exam: Oral Mucosa [place] & Moist (Janet Ribeiro) Pulmonary Resp Exam: Breath Sounds Equal, No Distress (Janet Ribeiro) Cardiology CV Exam: Regular, Normal Sinus Rhythm (Janet Ribeiro) Gastrointestinal/Abdomen GI Exam: Soft, Non-Tender, Distended (Janet Ribeiro) Genitourinary Exam: Flank Non-Tender (Janet Ribeiro) Integumentary Skin Exam: Clear, Warm (Janet Ribeiro) Extremeties Extremities Exam: Moderate Edema, Pitting Edema, Dependent Edema (Janet Ribeiro) Neurologic Neuro Exam: Alert, Awake, Oriented (Janet Ribeiro) Psychiatric Psych Exam: Appropriate Responses (Janet Ribeiro) Assessment/Plan Electrolyte Assessment: Hypernatremia, Hypokalemia Problem List: (1) Acute kidney injury ICD Codes: N17.9 - Acute kidney failure, unspecified Plan: Acute kidney injury with creatinine of 2.44 when consulted. Acute kidney injury most likely related to tumor lysis. On admission creatinine of 0.99. CT of abdomen on the with kidney with normal in size and shape. There is no mass, stone or hydronephrosis. Lobulated cysts in the upper poles of both kidneys with some benign-appearing calcification on the left Creatinine stable Plan Will monitor renal panel periodically Avoid nephrotoxins. Encouraged to elevate legs throughout day Continue Lasix increase to 40 mg BID and albumin Diuril discontinued Creatinine remains stable with aggressive diuresis with urinary output of 5.2 liters/24 hours Hypokalemia at 2.8 on scheduled potassium replacement and extra ordered today. Will increase scheduled. (2) B-cell lymphoma ICD Codes: C85.10 - Unspecified B-cell lymphoma, unspecified site Status: Acute Plan: Oncology managing (3) Anemia ICD Codes: D64.9 - Anemia, unspecified Status: Acute Plan: Monitoring Transfusion today. (Janet Ribeiro) Problem List: (1) Acute kidney injury ICD Codes: N17.9 - Acute kidney failure, unspecified Plan: Acute kidney injury with creatinine of 2.44 when consulted. Acute kidney injury most likely related to tumor lysis. On admission creatinine of 0.99. CT of abdomen on the with kidney with normal in size and shape. There is no mass, stone or hydronephrosis. Lobulated cysts in the upper poles of both kidneys with some benign-appearing calcification on the left Creatinine stable Plan Will monitor renal panel periodically Avoid nephrotoxins. Encouraged to elevate legs throughout day Continue Lasix increase to 40 mg BID and albumin Diuril discontinued Creatinine remains stable with aggressive diuresis with urinary output of 5.2 liters/24 hours Hypokalemia at 2.8 on scheduled potassium replacement and extra ordered today. Will increase scheduled. Patient seen and examined, agree with above. To encourage oral intake. D/W the family. (2) B-cell lymphoma ICD Codes: C85.10 - Unspecified B-cell lymphoma, unspecified site Status: Acute Plan: Oncology managing (3) Anemia ICD Codes: D64.9 - Anemia, unspecified Status: Acute Plan: Monitoring Transfusion today. (Demi Mendez MD) Problem Qualifiers (1) Anemia: Qualified Codes: D64.9 - Anemia, unspecified Janet Ribeiro September 19, 2017 12:26 Demi Mendez MD September 19, 2017 22:26
[2017-09-19] MEDS ORDERED: POTASSIUM CHLOR 20 MEQ PREMIX 100 ML ONE (12:43)
[2017-09-19] MEDS ORDERED: POTASSIUM CHLOR 40 MEQ PREMIX 100 ML IV ONE (12:45)
[2017-09-19] MEDS: FILGRASTIM INJ 480 MCG in DEXTROSE 5% IN WATER INJ 50 ML IV SCH ×2 (14:00)
[2017-09-19] MEDS ORDERED: FUROSEMIDE 20 MG/2 ML VIAL IV PUSH ONE (19:00)
[2017-09-19] MEDS ORDERED: POTASSIUM CHLORIDE 10 MEQ CONTROLLED RELEASE TAB PO ONE (19:00)
[2017-09-19] MEDS ORDERED: CALCIUM GLUCONATE INJ 1 GM in SODIUM CHLORIDE 0.9% INJ 100 ML IV ONE (20:00)
[2017-09-19] MEDS: TEMAZEPAM 15 MG CAP PO PRN (21:19)
[2017-09-20] VITALS (14 sets, daily range): BP systolic 126–165; BP diastolic 71–84; PULSE 74–106; RESP 16–20; TEMP 97.6–99; O2SAT 91–96
[2017-09-20] MEDS: CHLORHEXIDINE GLUCONATE 2 % 1 PACK (2 CLOTHS) TOP SCH (04:00)
[2017-09-20] MEDS: AZTREONAM INJ 1,000 MG in SODIUM CHLORIDE 0.9% INJ 100 ML IV SCH ×3 (04:10→21:10)
[2017-09-20] MEDS: ACYCLOVIR 200 MG CAP PO SCH ×3 (05:43→21:10)
[2017-09-20] MEDS: NYSTATIN 100,000 U/GM PWD 15 GM BTL TOPICAL SCH ×3 (06:00→21:15)
[2017-09-20] MEDS ORDERED: SODIUM CHLOR 0.9% 250 ML INJ 250 ML IV ONE (06:00)
[2017-09-20] MEDS: NYSTAT/DIPHENHY/LIDO MOUTHWASH (Adult) 120ML SWISH-SPIT SCH ×4 (06:02→22:19)
[2017-09-20 06:13] LABS: MEAN CELL VOLUME 84.1 FL (80.0-100.0); MEAN CORPUSCULAR HEMOGLOBIN 29.4 PG (27.0-34.0); RED BLOOD COUNT 2.28 MIL/MM3 (4.50-5.90); WHITE BLOOD COUNT 0.1 TH/MM3 (4.0-11.0)
[2017-09-20 06:20] LABS: HEMATOCRIT 19.1 % (39.0-51.0); HEMOGLOBIN 6.7 GM/DL (13.0-17.0); PLATELET COUNT 6 TH/MM3 (150-450)
[2017-09-20 06:56] LABS: ALBUMIN 2.3 GM/DL (3.4-5.0); BICARBONATE 36.3 MEQ/L (21.0-32.0); CALCIUM 7.7 MG/DL (8.5-10.1); CREATININE 1.16 MG/DL (0.60-1.30); DIRECT BILIRUBIN ADULT 2.3 MG/DL (0.0-0.2); INDIRECT BILIRUBIN 1.3 MG/DL (0.0-0.8); MAGNESIUM 1.6 MG/DL (1.5-2.5); TOTAL BILIRUBIN ADULT 3.6 MG/DL (0.2-1.0); TOTAL PROTEIN 4.6 GM/DL (6.4-8.2)
[2017-09-20 07:51] LABS: LYMPHOCYTES 10 % (9-44); MONOCYTES 10 % (0-8); NEUTROPHIL # MANUAL DIFF 0.1 TH/MM3 (1.8-7.7); POLYS (SEG NEUTROPHILS) 80 % (16-70)
--- NOTE | 2017-09-20 08:04 | HHI.PR ---
Subjective Remarks Follow-up: multiple medical problems. Patient with significant scrotal edema with excoriations and monitor for signs of infection patient is pancytopenic and at risk of infection. Low plt and HGB plan to transfuse today With pain in his mouth says from the ulcers. No fever or chills Denies chest pain or sob. Objective Vitals Vital Signs Date Time Temp Pulse Resp B/P (MAP) Pulse Ox O2 Delivery O2 Flow Rate FiO2 09/20/17 07:29 97.6 88 19 159/75 92 09/20/17 07:12 98.3 94 18 165/84 92 09/20/17 04:11 98.4 101 16 149/79 (102) 92 09/20/17 04:04 106 09/20/17 00:05 98.6 102 20 147/71 (96) 93 09/19/17 23:06 99 09/19/17 22:20 16 09/19/17 20:00 98.3 105 20 148/69 (95) 95 09/19/17 20:00 Room Air 09/19/17 19:59 101 09/19/17 16:00 109 09/19/17 16:00 98.8 90 16 135/53 (80) 93 09/19/17 13:00 98.1 90 18 154/77 95 09/19/17 12:00 93 09/19/17 10:30 98.8 91 18 147/72 94 09/19/17 08:00 87 I/O 09/19/17 09/19/17 09/19/17 09/20/17 09/20/17 09/20/17 07:00 15:00 23:00 07:00 15:00 23:00 Intake Total 700 ml 200 ml Output Total 1850 ml 1600 ml 1900 ml 2250 ml Balance -1850 ml -900 ml -1700 ml -2250 ml Intake Oral 200 ml Packed Cells 400 ml Platelets 285 ml Blood Product IV Normal Saline Flush 15 ml Output Urine Total 1850 ml 1600 ml 1900 ml 2250 ml # Bowel Movements 1 Result Diagram: 09/20/17 0548 09/20/17 0548 Imaging Last Impressions Chest X-Ray 09/05/17 0000 Signed Impressions: Service Date/Time: Tuesday, September 05, 2017 01:50 - CONCLUSION: 1. Right PICC line in superior vena cava. Subsegmental basilar airspace disease. No effusion or pneumothorax. Cory Camarena MD PICC Line Insertion 09/04/17 0600 Signed Impressions: Service Date/Time: Monday, September 04, 2017 15:12 - CONCLUSION: 1. Uncomplicated central venous Power PICC line placement. 2. The PICC line can be used immediately. Santy Burciaga Jr., MD Lumbar Puncture Fluoroscopy 09/04/17 0000 Signed Impressions: Service Date/Time: Monday, September 04, 2017 15:12 - CONCLUSION: Uncomplicated fluoroscopically guided lumbar puncture with pressures as above. Intrathecal methotrexate was administered. Santy Burciaga Jr., MD Chest CT 09/01/17 0000 Signed Impressions: Service Date/Time: Friday, September 01, 2017 16:48 - CONCLUSION: 1. No definite evidence for metastatic disease to the thorax. 2. 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 3. Scattered atelectasis and scarring in the lungs. 4. Moderate coronary calcifications. Cory Camarena MD Abdomen/Pelvis CT 09/01/17 0000 Signed Impressions: Service Date/Time: Friday, September 01, 2017 16:48 - CONCLUSION: 1. Post surgical changes with findings of cholecystectomy and prostatectomy. 2. Scattered diverticular disease of the colon without diverticulitis. 3. Lobulated cyst in the upper poles of both kidneys with some calcification on the left. 4. Retroperitoneal fat herniates through the left hemidiaphragm into the posterior left lung base. 5. No acute intraperitoneal or pelvic process to explain current clinical symptoms Gavin Lynn MD Bone Biopsy CT 08/30/17 1535 Signed Impressions: Service Date/Time: August 16:19 - CONCLUSION: 1. Uncomplicated CT guided bone marrow aspirate. 2. Uncomplicated CT guided bone marrow biopsy. Srikanth Ambrosio MD Thoracic Spine CT 08/30/17 0100 Signed Impressions: Service Date/Time: August 01:37 - CONCLUSION: 1. No fracture, subluxation or other acute abnormality of the thoracic spine. 2. Scoliosis and mild multifocal degenerative changes as above. 3. Complex appearing cystic structures of the upper poles of both kidneys. Comparison to any previous outside facility studies is recommended to confirm chronicity and stability. Contrast enhanced study of the abdomen suggested if felt clinically indicated, preferably MRI if there are no contraindications. Tim Jones MD Lumbar Spine CT 08/30/17 0100 Signed Impressions: Service Date/Time: August 01:37 - CONCLUSION: 1. No acute fracture or acute subluxation of the lumbar spine. 2. 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 3. Mild spinal and bilateral foraminal stenosis at L4/L5. 4. Mild right and moderate left foraminal stenosis at L5/S1. 5. Benign vertebral body hemangioma of L1. No concerning lumbar spine bone lesion. Tim Jones MD Head CT 08/30/17 0100 Signed Impressions: Service Date/Time: August 01:37 - CONCLUSION: Small frontal maddy-falcine subdural blood is unchanged. Tim Jones MD Carotid Artery Ultrasound 08/30/17 0000 Signed Impressions: Service Date/Time: August 07:52 - CONCLUSION: 1. Diffuse calcified plaque throughout carotid arteries bilaterally with resultant moderate, 50-69%%, stenosis of the internal carotid arteries bilaterally and likely moderate stenosis of the left common carotid artery. 2. Antegrade vertebral artery flow bilaterally. Lopez Taylor MD Brain MRI 08/30/17 0000 Signed Impressions: Service Date/Time: August 09:27 - CONCLUSION: 1. Right frontal parafalcine abnormality on CT exam corresponds to a small meningioma. No definitive intra-or extra-axial hemorrhage. Lopez Taylor MD Objective Remarks General appearance: Very pleasant elderly gentleman, awake, weak, ill-appearing , appears in discomfort Cardiovascular: Regular heart sounds, no murmurs Respiratory: Clear bilateral, decreased breath sounds, no wheezes Abdomen: Soft, non-tender, no rebound. Extremities: warm and well perfused, 3+ pitting edema : significant scrotal edema with excoriations Procedures Bone marrow biopsy 08/30/2017. Line: PICC A/P Problem List: (1) Anemia ICD Code: D64.9 - Anemia, unspecified Status: Acute (2) Thrombocytopenia ICD Code: D69.6 - Thrombocytopenia, unspecified Status: Acute (3) GI bleed ICD Code: K92.2 - Gastrointestinal hemorrhage, unspecified Status: Acute (4) Back pain ICD Code: M54.9 - Dorsalgia, unspecified Status: Acute (5) History of MD (myocardial infarction) ICD Code: I25.2 - Old myocardial infarction (6) B-cell lymphoma ICD Code: C85.10 - Unspecified B-cell lymphoma, unspecified site Status: Acute (7) Abnormal head CT ICD Code: R93.0 - Abnormal findings on diagnostic imaging of skull and head, not elsewhere classified (8) Hearing loss ICD Code: H91.90 - Unspecified hearing loss, unspecified ear (9) Leukocytosis ICD Code: D72.829 - Elevated white blood cell count, unspecified Assessment and Plan 72y/o male with anemia + thrombocytopenia. History of prostate cancer, status post prostatectomy, coronary artery disease, s/p stent placement. 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 Septic shock - resolved E coli and strep viridans bacteremia - repeat blood cx are negative to date. Etiology of E coli in blood - No evidence of a UTI based on symptoms. ID consulted for further recommendation. Continue IV aztreonam for now.Echocardiogram shows an EF of 55-60% with moderate concentric left ventricular hypertrophy. No vegetation reported. Tumor lysis syndrome - Resolved. Allopurinol on hold. Monitor closely. Hyperkalemia now hypokalemia and hypocalcemia.-Continue to replace. Monitor closely. LUCA/hypernatremia- creatinine trending down, good urine output. Continue half normal saline due to hypernatremia. Monitor BMPs every 6 hours. Cautioned to not overcorrect quickly sodium levels. Encourage p.o. hydration (250ml water q4 -6hrs while awake). Nephrology following, appreciate recs. Pt has been started on diuril. Monitor Cr closely. Metabolic acidosis - improved Pancytopenia - requiring multiple transfusions ( ~daily). Transfusion and G- CSF per oncology. Transfuse 1 unit packed red blood cells and 1U PLT today 09/20/17 Transfuse to keep platelets greater than 10,000, hemoglobin greater than 7.5 Continue Neupogen Burkitt's lymphoma receiving chemo. Management per hematology History of prostate cancer status post XRT Diarrhea - seems to have resolved, monitor. Oral thrush/ mucositis give magic wash, Scrotal edema/excoriations slight improved. Give lasix 20 mg IV scheduled and albumin IV. Monitor UOP. , monitor closely kidney function. Replenish electrolytes. Consult wound care, discussed with Edith mahoney wound care and with the nurse . Recommendation sfor wound care. Scrotal tears noted, pt having pain with urination due to urine touching those open tears and burning. Dr. Duron doesn't recommend placing a jensen as he is at high risk for bleeding due to his low plt count and also high risk for infection due to his neutropenia. Desitin cream and lidocaine jelly to be applied. Keep pt dry as much as possible. Place a condom catheter, will do but at this time, edema is too much and this cannot be done. Nystatin powder also ordered Patient however with significant scrotal edema and pain, has a Jensen placed with orange urine, fairly good OP. Insomnia: Add temazepam Discharge Planning Continue to replace electrolytes. Monitor sodium levels closely. Transfuse per heme/onc recs. CM assisting with DC planning as family wishes to pursue care in [place] has a plane ticket for 09/22/17 Transfuse 1U PRBC and 1U PLT today again 09/20/17. Add carafate. Replace lytes agressively Transfuse to keep platelets greater than 10,000, hemoglobin greater than 7.5 Discussed with the patient, nurse, family at bedside, Tricia Davila hem/onc CLAUDIA Problem Qualifiers (1) Anemia: Qualified Codes: D64.9 - Anemia, unspecified (2) Back pain: Qualified Codes: M54.9 - Dorsalgia, unspecified (3) Hearing loss: Qualified Codes: H91.92 - Unspecified hearing loss, left ear (4) Leukocytosis: Qualified Codes: D72.829 - Elevated white blood cell count, unspecified Adelaide Grande MD September 20, 2017 08:04
[2017-09-20] MEDS: DOCUSATE SODIUM 50 MG/SENNA 8.6 MG TAB PO SCH ×2 (09:00→21:00)
[2017-09-20] MEDS ORDERED: POTASSIUM BICARBONATE 25 MEQ EFFERVESCENT TAB PO ONE (09:00)
[2017-09-20] MEDS ORDERED: MAGNESIUM OXIDE 400 MG TAB PO ONE (09:00)
--- NOTE | 2017-09-20 09:30 | PD.ONC.PN ---
Subjective Subjective Remarks Afebrile overnight. patient resting in bed, complaining of mouth sores. states swelling has significantly improved. having difficulty eating due to sores in mouth. Objective Data Date Time Temp Pulse Resp B/P (MAP) Pulse Ox O2 Delivery O2 Flow Rate FiO2 09/20/17 07:29 97.6 88 19 159/75 92 09/20/17 07:12 98.3 94 18 165/84 92 09/20/17 04:11 98.4 101 16 149/79 (102) 92 09/20/17 04:04 106 09/20/17 00:05 98.6 102 20 147/71 (96) 93 09/19/17 23:06 99 09/19/17 22:20 16 09/19/17 20:00 98.3 105 20 148/69 (95) 95 09/19/17 20:00 Room Air 09/19/17 19:59 101 09/19/17 16:00 109 09/19/17 16:00 98.8 90 16 135/53 (80) 93 09/19/17 13:00 98.1 90 18 154/77 95 09/19/17 12:00 93 09/19/17 10:30 98.8 91 18 147/72 94 09/20/17 09/20/17 09/20/17 07:00 15:00 23:00 Output Total 2250 ml Balance -2250 ml Result Diagram: 09/20/17 0548 09/20/17 0548 Laboratory Results Laboratory Tests Test 09/20/17 05:48 White Blood Count 0.1 TH/MM3 Red Blood Count 2.28 MIL/MM3 Hemoglobin 6.7 GM/DL Hematocrit 19.1 % Mean Corpuscular Volume 84.1 FL Mean Corpuscular Hemoglobin 29.4 PG Mean Corpuscular Hemoglobin Concent 35.0 % Red Cell Distribution Width 15.0 % Platelet Count 6 TH/MM3 Mean Platelet Volume 8.0 FL CBC Comment AUTO DIFF Differential Total Cells Counted 10 Neutrophils % (Manual) 80 % Lymphocytes % 10 % Monocytes % 10 % Neutrophils # (Manual) 0.1 TH/MM3 Differential Comment FINAL DIFF MANUAL Platelet Estimate RARE Platelet Morphology Comment NORMAL Blood Urea Nitrogen 37 MG/DL Creatinine 1.16 MG/DL Random Glucose 140 MG/DL Total Protein 4.6 GM/DL Albumin 2.3 GM/DL Calcium Level 7.7 MG/DL Magnesium Level 1.6 MG/DL Alkaline Phosphatase 79 U/L Aspartate Amino Transf (AST/SGOT) 6 U/L Alanine Aminotransferase (ALT/SGPT) 23 U/L Total Bilirubin 3.6 MG/DL Direct Bilirubin 2.3 MG/DL Sodium Level 146 MEQ/L Potassium Level 2.6 MEQ/L Chloride Level 103 MEQ/L Carbon Dioxide Level 36.3 MEQ/L Anion Gap 7 MEQ/L Estimat Glomerular Filtration Rate 62 ML/MIN Indirect Bilirubin 1.3 MG/DL Administered Medications Medications (Trade) Dose Ordered Sig/Robert Route PRN Reason Start Time Stop Time Status Last Admin Dose Admin Sodium Chloride (NS Flush) 2 ml UNSCH PRN IV FLUSH FLUSH AFTER USING IV ACCESS 08/29/17 15:45 09/08/17 23:42 Sodium Chloride (NS Flush) 2 ml BID IV FLUSH 08/29/17 21:00 09/19/17 21:21 Pantoprazole Sodium (Protonix Inj) 40 mg DAILY IV PUSH 08/30/17 09:00 09/19/17 08:36 Ondansetron HCl (Zofran Inj) 4 mg Q6H PRN IV PUSH NAUSEA OR VOMITING 08/29/17 16:00 09/09/17 10:08 Albuterol/ Ipratropium (Duoneb Neb) 1 ampule Q2HR NEB PRN INH WHEEZING 08/29/17 16:00 09/04/17 23:32 Chlorhexidine Gluconate (Chlorhexidine 2% Cloth) 3 pack Taper DAILY@04 TOP 08/30/17 04:00 08/26/18 03:59 09/13/17 05:13 Senna/Docusate Sodium (Madina-Colace) 1 tab BID PO 08/29/17 21:00 09/19/17 08:35 Albuterol Sulfate (Proair Hfa Inh) 2 puff Q6H PRN INH SHORTNESS OF BREATH 08/29/17 18:00 09/13/17 11:05 Amlodipine Besylate (Norvasc) 10 mg DAILY PO 08/30/17 09:00 Future Hold 09/05/17 10:12 Budesonide/ Formoterol Fumarate (Symbicort 160-4.5 Mcg Inh) 2 puff BID INH 08/29/17 21:00 09/19/17 21:21 Ramipril (Altace) 10 mg DAILY PO 08/30/17 14:00 Future Hold 09/05/17 10:12 Morphine Sulfate (Morphine Inj) 2 mg Q4H PRN IV PUSH BREAKTHROUGH PAIN 09/01/17 16:00 09/17/17 23:07 Sodium Chloride (NS Flush) DAILY IVF 09/05/17 09:00 09/19/17 09:00 Heparin Sodium (Porcine) (Heparin Central Flush) DAILY IV FLUSH 09/05/17 09:00 09/18/17 09:09 Sodium Chloride (NS Flush) UNSCH PRN IVF SEE PROTOCOL 09/04/17 16:00 09/10/17 21:58 Sodium Chloride (NS Flush) UNSCH PRN IVF SEE PROTOCOL 09/04/17 16:00 09/10/17 21:59 Aztreonam 1000 mg/ Sodium Chloride 100 ml @ 200 mls/hr Q8H IV 09/06/17 12:00 09/20/17 04:10 Filgrastim 480 mcg/Dextrose 51.6 ml @ 100 mls/hr DAILY@14 IV 09/11/17 21:00 09/19/17 14:00 Zinc Oxide (Desitin 40% Oint) 1 applic UNSCH PRN TOPICAL DIAPER RASH 09/12/17 09:30 09/13/17 18:07 Nystatin (Mycostatin Powder) 1 applic Q8HR TOPICAL 09/12/17 09:30 09/19/17 21:34 Fluconazole (Diflucan) 100 mg DAILY PO 09/13/17 09:00 09/19/17 08:36 Lorazepam (Ativan) 0.5 mg Q6H PRN PO anxiety/ sleep 09/13/17 17:30 09/19/17 04:56 Multi-Ingredient Mouthwash/Gargle (Magic Mouthwash Adult Liq) 10 ml QID SWISH-SPIT 09/15/17 13:00 09/20/17 06:02 Calcium Carbonate (Oscal) 500 mg DAILY PO 09/16/17 09:00 09/19/17 09:00 Multivitamins (Theragran) 1 tab DAILY PO 09/16/17 09:00 09/19/17 08:35 Oxycodone HCl (Roxicodone) 5 mg Q4H PRN PO pain 2-5 09/16/17 11:45 09/16/17 21:43 Oxycodone HCl (Roxicodone) 10 mg Q4H PRN PO pain 6-10 09/16/17 11:45 09/19/17 21:20 Acyclovir (Zovirax) 400 mg Q8HR PO 09/17/17 22:00 09/20/17 05:43 Furosemide (Lasix Inj) 40 mg DAILY@0900,1800 IV PUSH 09/18/17 18:00 09/19/17 18:42 Albumin Human 100 ml @ 60 mls/hr Q12H IV 09/18/17 09:30 09/19/17 21:20 Temazepam (Restoril) 15 mg HS PRN PO insomnia 09/19/17 10:15 09/19/17 21:19 Sodium Chloride 250 ml @ 15 mls/hr ONCE ONCE IV 09/20/17 06:00 09/20/17 22:39 09/20/17 07:03 Objective Remarks GENERAL: Pleasant male, sitting up on side of bed. SKIN: Warm and dry. MOUTH: multiple oral ulcers, mucositis. HEAD: Normocephalic. EYES: No injection or drainage. NECK: Supple, trachea midline. CARDIOVASCULAR: Regular rate and rhythm RESPIRATORY: diminished at bases, anterior bridges clear. GASTROINTESTINAL: Abdomen soft, non-tender, nondistended. EXTREMITIES: No cyanosis. bilateral lower extremity edema improving. NEUROLOGICAL: no focal deficit. 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 ++also has bone pain, back pain, elevated LDH, as well as the sweats that suggests a more systemic manifestation of bone marrow disorder. ++ Nucleated red cells seen on peripheral smear. no acute blasts. CT C/A/P showing no LAD Discussed w/ oncologist in [facility] pt's home town coordination of treatment when he leaves here. He has flight schedule 09/22/17. agreed to assume care, plan to fax records, appt to be made for the Sunday after his return home. 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 09/04: PICC line placement today, start R-EPOCH, give IT MTX. 09/05: Rituxan infusion complete. patient in TLS. transferred to ICU. inventory planner consulted. 09/06: start EPOCH, window closing as patient is now leukopenic. give blood and platelets. 09/07: give D2 EPOCH. give 1 unit pRBC, check repeat H/H. 09/08: give D3 EPOCH. 1 unit pRBC, 1 unit platelets. 09/09: D4 EPOCH, 2 units platelets. 09/10: D5--finish 4th bag of EPOCH, give Cytoxan this evening. 09/13/17: Continue G-CSF support 09/14/17: Transfuse 2 units packed red blood cells, 1 unit platelets 09/17/17: continue Neupogen. give 1 unit prbc 1 unit platelets. 09/18/17: start wound care instructions. 1 unit pRBC, 1 unit platelets. 09/20: edema improving. continue to replace potassium aggressively with diuresis. (2) Anasarca ICD Codes: R60.1 - Generalized edema Plan: --nephrology following. --receiving Lasix IV. --start Albumin infusions. (3) Skin breakdown ICD Codes: L90.9 - Atrophic disorder of skin, unspecified Plan: --appreciate wound care assistance. --Daly mattress started BID and PRN to Left Buttock 1. [place] Cavilon skin barrier film on purple non blanching pressure injury after gently cleansing 2. Apply Calazime skin protectant paste and leave open to air 3. Use ONLY disposable under pads for moisture (NO THICK COTTON UNDERPADS/DRAW SHEETS) *Reposition patient from left to right sides only. Limit time spent on back for therapies only* (4) Hypokalemia ICD Codes: E87.6 - Hypokalemia Plan: --due to diuresis. --continue to replace. --may need to consider spironolactone. (5) Hyperbilirubinemia ICD Codes: E80.6 - Other disorders of bilirubin metabolism Plan: --check liver ultrasound for rising bilirubin Assessment 72y/o male with new diagnosis of Burkitt's lymphoma in the bone marrow given R- EPOCH chemo Plan 1. Transfuse 1 unit packed red blood cells with 1 unit platelets 2. continue Neupogen + antibiotics. 3. continue potassium replacement, may need to consider spironolactone 4. carafate for mucositis Attending Statement The exam, history, and the medical decision-making described in the above note were completed with the assistance of the mid-level provider. I reviewed and agree with the findings presented. I attest that I had a [id number] encounter with the patient on the same day, and personally performed and documented my assessment and findings in the medical record. Still pancytopenic, transfusion dependent for platelets and red cells. Sitting up in bed, c/o mouth sores. Discussed liver function abnormality, check US. Cont K replacement, oral and PO. Laurita Davila September 20, 2017 09:30 Shahla Duron MD September 20, 2017 16:48
[2017-09-20] MEDS: PANTOPRAZOLE SODIUM 40 MG VIAL IV PUSH SCH (09:56)
[2017-09-20] MEDS: SODIUM CHLORIDE 0.9% FLUSH 10 ML FLUSH IV FLUSH SCH ×2 (09:56→21:12)
[2017-09-20] MEDS: MULTIVITAMIN TAB PO SCH (09:57)
[2017-09-20] MEDS: FLUCONAZOLE 100 MG TAB PO SCH (09:58)
[2017-09-20] MEDS: CALCIUM CARBONATE 1.25 GM (CA 500 MG) TAB PO SCH (09:58)
[2017-09-20] MEDS: ALBUMIN 25% INJ 100 ML IV SCH ×2 (09:59→21:11)
[2017-09-20] MEDS: BUDESONIDE-FORMOTEROL 160/4.5 MCG INHALER INH SCH ×2 (10:00→21:00)
[2017-09-20] MEDS ORDERED: SPIRONOLACTONE 25 MG TAB PO ONE (13:15)
[2017-09-20] MEDS: POTASSIUM CHLOR 40 MEQ PREMIX 100 ML IV SCH ×2 (13:18→18:47)
[2017-09-20] MEDS: SODIUM CHLORIDE 0.9% FLUSH 10 ML FLUSH IVF SCH (13:19)
[2017-09-20] MEDS: SUCRALFATE 1 GM/10 ML CUP PO SCH ×3 (13:20→22:18)
[2017-09-20] MEDS: FILGRASTIM INJ 480 MCG in DEXTROSE 5% IN WATER INJ 50 ML IV SCH ×2 (14:53)
--- NOTE | 2017-09-20 15:14 | HHI.IDPN ---
Note Infectious Disease Note Patient feels okay. Mouth feels very sore. Does not want to eat because of pain in the mouth. Denies nausea or vomiting. Denies chills, cough, shortness of breath, abdominal pain. Notes that his stools are loose. Afebrile. WBC is 0.1. Diagnosed with Burkitt lymphoma. The patient completed chemotherapy on 09/10. He has been receiving antibiotics for E. coli bacteremia, which was cultured on 09/06. PAST MEDICAL HISTORY: Asthma, gastroesophageal reflux disease, hypertension, history of prostate cancer, history of prostatectomy, history of cholecystectomy, history of coronary stent x 2. ALLERGIES: PENICILLIN. THE PATIENT RECALLS ALLERGIC REACTION FROM CHILDHOOD, BUT NO SPECIFIC DETAILS. QUINOLONES, DIPHENHYDRAMINE, HYDROCODONE, MEPERIDINE. MEDICATIONS: Current Medications Medications (Trade) Dose Ordered Sig/Robert Route PRN Reason Start Time Stop Time Status Last Admin Dose Admin Sodium Chloride (NS Flush) 2 ml UNSCH PRN IV FLUSH FLUSH AFTER USING IV ACCESS 08/29/17 15:45 09/08/17 23:42 Sodium Chloride (NS Flush) 2 ml BID IV FLUSH 08/29/17 21:00 09/20/17 09:56 Pantoprazole Sodium (Protonix Inj) 40 mg DAILY IV PUSH 08/30/17 09:00 09/20/17 09:56 Ondansetron HCl (Zofran Inj) 4 mg Q6H PRN IV PUSH NAUSEA OR VOMITING 08/29/17 16:00 09/09/17 10:08 Albuterol/ Ipratropium (Duoneb Neb) 1 ampule Q2HR NEB PRN INH WHEEZING 08/29/17 16:00 09/04/17 23:32 Miscellaneous Information 1 [id number] XX 08/29/17 15:45 Chlorhexidine Gluconate (Chlorhexidine 2% Cloth) 3 pack Taper DAILY@04 TOP 08/30/17 04:00 08/26/18 03:59 09/13/17 05:13 Chlorhexidine Gluconate (Chlorhexidine 2% Cloth) 3 pack UNSCH PRN TOP HYGIENIC CARE 08/29/17 15:45 Senna/Docusate Sodium (Madina-Colace) 1 tab BID PO 08/29/17 21:00 09/19/17 08:35 Magnesium Hydroxide (Milk Of Magnesia Liq) 30 ml Q12H PRN PO Mild constipation 08/29/17 16:00 Sennosides (Senokot) 17.2 mg Q12H PRN PO Moderate constipation 08/29/17 16:00 Bisacodyl (Dulcolax Supp) 10 mg DAILY PRN RECTAL SEVERE CONSITIPATION 08/29/17 16:00 Lactulose (Lactulose Liq) 30 ml DAILY PRN PO SEVERE CONSITIPATION 08/29/17 16:00 Albuterol Sulfate (Proair Hfa Inh) 2 puff Q6H PRN INH SHORTNESS OF BREATH 08/29/17 18:00 09/13/17 11:05 Budesonide/ Formoterol Fumarate (Symbicort 160-4.5 Mcg Inh) 2 puff BID INH 08/29/17 21:00 09/20/17 10:00 Morphine Sulfate (Morphine Inj) 2 mg Q4H PRN IV PUSH BREAKTHROUGH PAIN 09/01/17 16:00 09/17/17 23:07 Sodium Chloride (NS Flush) DAILY IVF 09/05/17 09:00 09/20/17 13:19 Heparin Sodium (Porcine) (Heparin Central Flush) DAILY IV FLUSH 09/05/17 09:00 09/20/17 09:00 Sodium Chloride (NS Flush) UNSCH PRN IVF SEE PROTOCOL 09/04/17 16:00 09/10/17 21:58 Heparin Sodium (Porcine) (Heparin Central Flush) UNSCH PRN IV FLUSH SEE PROTOCOL 09/04/17 16:00 Sodium Chloride (NS Flush) UNSCH PRN IVF SEE PROTOCOL 09/04/17 16:00 09/10/17 21:59 Terbutaline Sulfate (Brethine Inj) 1 mg UNSCH PRN SQ For Extravasation 09/06/17 10:15 Aztreonam 1000 mg/ Sodium Chloride 100 ml @ 200 mls/hr Q8H IV 09/06/17 12:00 09/20/17 13:45 Filgrastim 480 mcg/Dextrose 51.6 ml @ 100 mls/hr DAILY@14 IV 09/11/17 21:00 09/20/17 14:53 Zinc Oxide (Desitin 40% Oint) 1 applic UNSCH PRN TOPICAL DIAPER RASH 09/12/17 09:30 09/13/17 18:07 Nystatin (Mycostatin Powder) 1 applic Q8HR TOPICAL 09/12/17 09:30 09/19/17 21:34 Fluconazole (Diflucan) 100 mg DAILY PO 09/13/17 09:00 09/20/17 09:58 Lorazepam (Ativan) 0.5 mg Q6H PRN PO anxiety/ sleep 09/13/17 17:30 09/19/17 04:56 Multi-Ingredient Mouthwash/Gargle (Magic Mouthwash Adult Liq) 10 ml QID SWISH-SPIT 09/15/17 13:00 09/20/17 09:56 Simethicone (Mylicon Chew) 80 mg TID PRN CHEW gas 09/15/17 11:45 Oxycodone HCl (Roxicodone) 5 mg Q4H PRN PO pain 2-5 09/16/17 11:45 09/20/17 09:58 Oxycodone HCl (Roxicodone) 10 mg Q4H PRN PO pain 6-10 09/16/17 11:45 09/19/17 21:20 Acyclovir (Zovirax) 400 mg Q8HR PO 09/17/17 22:00 09/20/17 14:53 Furosemide (Lasix Inj) 40 mg DAILY@0900,1800 IV PUSH 09/18/17 18:00 Future Hold 09/19/17 18:42 Albumin Human 100 ml @ 60 mls/hr Q12H IV 09/18/17 09:30 09/20/17 09:59 Temazepam (Restoril) 15 mg HS PRN PO insomnia 09/19/17 10:15 09/19/17 21:19 Sodium Chloride 250 ml @ 15 mls/hr ONCE ONCE IV 09/20/17 06:00 09/20/17 22:39 09/20/17 07:03 Potassium Chloride 100 ml @ 25 mls/hr Q4H IV 09/20/17 08:00 09/20/17 15:59 09/20/17 13:18 Sucralfate (Carafate Liq) 1 gm ACHS PO 09/20/17 12:00 09/20/17 13:20 Multivitamins (Theragran) 1 tab DAILY PO 09/21/17 18:00 Calcium Carbonate (Oscal) 500 mg DAILY PO 09/21/17 18:00 Spironolactone (Aldactone) 25 mg BID PO 09/20/17 21:00 SOCIAL HISTORY: The patient resides in [place], [place]. No tobacco, rare alcohol use. No illicit drugs. Objective: Vital Signs Date Time Temp Pulse Resp B/P (MAP) Pulse Ox O2 Delivery O2 Flow Rate FiO2 09/20/17 13:44 98.7 74 18 150/72 96 09/20/17 13:14 98.5 83 18 153/77 92 09/20/17 08:00 98.5 98 18 126/74 (91) 96 09/20/17 07:29 97.6 88 19 159/75 92 09/20/17 07:12 98.3 94 18 165/84 92 09/20/17 04:11 98.4 101 16 149/79 (102) 92 09/20/17 04:04 106 09/20/17 00:05 98.6 102 20 147/71 (96) 93 09/19/17 23:06 99 09/19/17 22:20 16 09/19/17 20:00 98.3 105 20 148/69 (95) 95 09/19/17 20:00 Room Air 09/19/17 19:59 101 09/19/17 16:00 109 09/19/17 16:00 98.8 90 16 135/53 (80) 93 Laboratory Tests Test 09/19/17 05:06 09/20/17 05:48 White Blood Count 0.1 TH/MM3 0.1 TH/MM3 Red Blood Count 2.24 MIL/MM3 2.28 MIL/MM3 Hemoglobin 6.7 GM/DL 6.7 GM/DL Hematocrit 18.7 % 19.1 % Mean Corpuscular Volume 83.7 FL 84.1 FL Mean Corpuscular Hemoglobin 29.7 PG 29.4 PG Mean Corpuscular Hemoglobin Concent 35.5 % 35.0 % Red Cell Distribution Width 15.2 % 15.0 % Platelet Count 11 TH/MM3 6 TH/MM3 Mean Platelet Volume 7.5 FL 8.0 FL CBC Comment AUTO DIFF AUTO DIFF Differential Total Cells Counted 20 10 Neutrophils % (Manual) 40 % 80 % Band Neutrophils % 15 % Lymphocytes % 35 % 10 % Neutrophils # (Manual) 0.1 TH/MM3 0.1 TH/MM3 Promyelocytes 5 % Differential Comment FINAL DIFF MANUAL FINAL DIFF MANUAL Blastocytes 5 % Platelet Estimate RARE RARE Platelet Morphology Comment NORMAL NORMAL Haptoglobin 203 MG/DL Monocytes % 10 % Laboratory Tests Test 09/19/17 05:06 09/20/17 05:48 Blood Urea Nitrogen 36 MG/DL 37 MG/DL Creatinine 1.17 MG/DL 1.16 MG/DL Random Glucose 138 MG/DL 140 MG/DL Total Protein 4.5 GM/DL 4.6 GM/DL Albumin 2.0 GM/DL 2.3 GM/DL Calcium Level 7.0 MG/DL 7.7 MG/DL Magnesium Level 1.7 MG/DL 1.6 MG/DL Alkaline Phosphatase 90 U/L 79 U/L Aspartate Amino Transf (AST/SGOT) 11 U/L 6 U/L Alanine Aminotransferase (ALT/SGPT) 34 U/L 23 U/L Lactate Dehydrogenase 245 U/L Total Bilirubin 3.3 MG/DL 3.6 MG/DL Direct Bilirubin 2.2 MG/DL 2.3 MG/DL Sodium Level 145 MEQ/L 146 MEQ/L Potassium Level 2.8 MEQ/L 2.6 MEQ/L Chloride Level 104 MEQ/L 103 MEQ/L Carbon Dioxide Level 35.2 MEQ/L 36.3 MEQ/L Anion Gap 6 MEQ/L 7 MEQ/L Estimat Glomerular Filtration Rate 61 ML/MIN 62 ML/MIN Protein Corrected Calcium 8.4 MG/DL Indirect Bilirubin 1.1 MG/DL 1.3 MG/DL Imaging: Chest X-Ray 09/05/17 0000 Signed Impressions: Service Date/Time: Tuesday, September 05, 2017 01:50 - CONCLUSION: 1. Right PICC line in superior vena cava. Subsegmental basilar airspace disease. No effusion or pneumothorax. Cory Camarena MD PICC Line Insertion 09/04/17 0600 Signed Impressions: Service Date/Time: Monday, September 04, 2017 15:12 - CONCLUSION: 1. Uncomplicated central venous Power PICC line placement. 2. The PICC line can be used immediately. Santy Burciaga Jr., MD Lumbar Puncture Fluoroscopy 09/04/17 0000 Signed Impressions: Service Date/Time: Monday, September 04, 2017 15:12 - CONCLUSION: Uncomplicated fluoroscopically guided lumbar puncture with pressures as above. Intrathecal methotrexate was administered. Santy Burciaga Jr., MD Chest CT 09/01/17 0000 Signed Impressions: Service Date/Time: Friday, September 01, 2017 16:48 - CONCLUSION: 1. No definite evidence for metastatic disease to the thorax. 2. 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 3. Scattered atelectasis and scarring in the lungs. 4. Moderate coronary calcifications. Cory Camarena MD Abdomen/Pelvis CT 09/01/17 0000 Signed Impressions: Service Date/Time: Friday, September 01, 2017 16:48 - CONCLUSION: 1. Post surgical changes with findings of cholecystectomy and prostatectomy. 2. Scattered diverticular disease of the colon without diverticulitis. 3. Lobulated cyst in the upper poles of both kidneys with some calcification on the left. 4. Retroperitoneal fat herniates through the left hemidiaphragm into the posterior left lung base. 5. No acute intraperitoneal or pelvic process to explain current clinical symptoms Gavin Lynn MD Bone Biopsy CT 08/30/17 1535 Signed Impressions: Service Date/Time: August 16:19 - CONCLUSION: 1. Uncomplicated CT guided bone marrow aspirate. 2. Uncomplicated CT guided bone marrow biopsy. Srikanth Ambrosio MD Thoracic Spine CT 08/30/170 Signed Impressions: Service Date/Time: August 01:37 - CONCLUSION: 1. No fracture, subluxation or other acute abnormality of the thoracic spine. 2. Scoliosis and mild multifocal degenerative changes as above. 3. Complex appearing cystic structures of the upper poles of both kidneys. Comparison to any previous outside facility studies is recommended to confirm chronicity and stability. Contrast enhanced study of the abdomen suggested if felt clinically indicated, preferably MRI if there are no contraindications. Tim Jones MD Lumbar Spine CT 08/30/17 010 Signed Impressions: Service Date/Time: August 01:37 - CONCLUSION: 1. No acute fracture or acute subluxation of the lumbar spine. 2. 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 3. Mild spinal and bilateral foraminal stenosis at L4/L5. 4. Mild right and moderate left foraminal stenosis at L5/S1. 5. Benign vertebral body hemangioma of L1. No concerning lumbar spine bone lesion. Tim Jones MD Head CT 08/30/17 0100 Signed Impressions: Service Date/Time: August 01:37 - CONCLUSION: Small frontal madina-falcine subdural blood is unchanged. Tim Jones MD Carotid Artery Ultrasound 08/30/17 0000 Signed Impressions: Service Date/Time: August 07:52 - CONCLUSION: 1. Diffuse calcified plaque throughout carotid arteries bilaterally with resultant moderate, 50-69%%, stenosis of the internal carotid arteries bilaterally and likely moderate stenosis of the left common carotid artery. 2. Antegrade vertebral artery flow bilaterally. Lopez Taylor MD Brain MRI 08/30/17 0000 Signed Impressions: Service Date/Time: August 09:27 - CONCLUSION: 1. Right frontal parafalcine abnormality on CT exam corresponds to a small meningioma. No definitive intra-or extra-axial hemorrhage. Lopez Taylor MD PHYSICAL EXAMINATION: GENERAL: No acute distress. HEENT: Extraocular movements are grossly intact. Pupils reactive to light. No icterus. Oropharynx, mucosa is Very dry. Ulcers at the posterior oropharynx and upper palate. NECK: Supple without adenopathy. LUNGS: Breath sounds are clear. HEART: Regular S1 and S2. No murmurs, rubs or gallop. ABDOMEN: Obese, soft, diminished bowel sounds. Nontender. : Swelling of the scrotum has decreased. EXTREMITIES: Diffuse 3+ edema involving both upper and lower extremities. Punctate petechial lesions at the lower extremities. Some petechiae at the right upper arm area of IV catheter. SKIN: No diffuse rash. Ecchymosis at the right anterior neck. NEUROLOGIC: Nonfocal. PSYCHIATRIC: Calm and cooperative. IMPRESSION: 1. Persistent profound neutropenia and thrombocytopenia in patient with Burkitt lymphoma. Status post chemotherapy. Patient at high risk for infection. 3. Severe mucositis. 4. Diffuse anasarca. 5. Elevated direct bilirubin. Possible medication effect. Can be caused by acyclovir. 6. Bacteremia due to E. coli. Treated and resolved. Overall he feels well except for her mouth pain. RECOMMENDATIONS: 1. Continue aztreonam intravenous. 2. Continue Diflucan. 3. Continue acyclovir for herpetic coverage. Monitor the bilirubin. If the elevated direct bilirubin is not due to cholestasis from sludge, consider changing the acyclovir to famciclovir. 4. Continue oral nystatin. 5. Monitor the temperature. 6. Blood cultures if he develops fever. 7. Broaden antibiotics if he develops fever. Estevan Benjamin MD September 20, 2017 15:14
--- NOTE | 2017-09-20 18:41 | RADRPT ---
EXAM DATE/TIME: 09/20/2017 16:29 [facility] COMPARISON: No previous studies available for comparison. INDICATIONS : Increased lab values. MEDICAL HISTORY : Hypertension. Gastroesophageal reflux disease. Asthma. Prostate cancer. SURGICAL HISTORY : Prostatectomy. Cholecystectomy. Coronary stent. ENCOUNTER: Initial ACUITY: 1 day PAIN SCORE: 0/10 LOCATION: Bilateral upper quadrant MEASUREMENTS: LIVER: 18.1 cm length COMMON DUCT: 5 mm RIGHT KIDNEY: 13.5 x x 6.7 cm SPLEEN: 16.6 cm length FINDINGS: LIVER: Normal echotexture without focal lesion or ductal dilatation. COMMON DUCT: No intraluminal mass or stone visualized. GALLBLADDER: Surgically absent. PANCREAS: Not well seen. RIGHT KIDNEY: No hydronephrosis, stone or mass. Slightly complex cyst with septation measuring 44 x 31 x 32 mm. SPLEEN: No focal lesion. Enlarged. CONCLUSION: 1. Cholecystectomy. 2. Complex cyst right kidney measures 4.4 cm. 3. Splenomegaly. Srikanth Ambrosio MD on September 20, 2017 at 18:37 Board Certified Radiologist. This report was verified electronically.
--- NOTE | 2017-09-20 18:54 | HHI.NPPN ---
Subjective General Problems: Edema Renal Failure: Acute History of Present Illness Patient is a 72 year old male with a past medical history of prostate cancer, asthma, gastroesophageal reflux, Umñoz's esophagus,hypertension, new anemia, new thrombocytopenia, rotator cuff injury, and back pain. 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 Patient was receiving Rituxan last night and developed a reaction with low grade temperature, pain, and tremor. Plan to transfer patient to intensive care unit as patient is at risk for fluid overload with blood transfusions and acute kidney injury. Nephrology is consulted for acute kidney injury with creatinine of 2.44 with a admission creatinine of 0.99. HGB is low at 7.2, Plt of 27, NA 148, CO2 14.5. Patient is resting comfortably now with his only complaint is that is dizzy with ambulation. Additional Remarks Patient is alert, no SOB, still not eating due to oral lesions. Review of Systems Respiratory Respiratory Remarks Denies any SOB Cardiovascular Cardiac: Edema Cardiac Remarks Denies any CP Gastrointestinal GI Remarks Denies any abdominal pain Objective Data Data 09/20/17 09/21/17 19:00 07:00 Intake Total 619 ml Balance 619 ml Packed Cells 400 ml Platelets 219 ml Vital Signs Date Time Temp Pulse Resp B/P (MAP) Pulse Ox O2 Delivery O2 Flow Rate FiO2 09/20/17 18:43 99.0 104 18 158/73 (101) 91 09/20/17 16:20 91 09/20/17 15:53 Room Air 09/20/17 13:44 98.7 74 18 150/72 96 09/20/17 13:14 98.5 83 18 153/77 92 09/20/17 12:20 91 09/20/17 08:20 106 09/20/17 08:00 98.5 98 18 126/74 (91) 96 09/20/17 07:29 97.6 88 19 159/75 92 09/20/17 07:12 98.3 94 18 165/84 92 09/20/17 04:11 98.4 101 16 149/79 (102) 92 09/20/17 04:04 106 09/20/17 00:05 98.6 102 20 147/71 (96) 93 09/19/17 23:06 99 09/19/17 22:20 16 09/19/17 20:00 98.3 105 20 148/69 (95) 95 09/19/17 20:00 Room Air 09/19/17 19:59 101 -: 09/20/17 0548 09/20/17 0548 Physical Exam General Appearance: No Acute Distress, Comfortable, Anxious Throat Throat Exam: Oral Mucosa [place] & Moist Pulmonary Resp Exam: Breath Sounds Equal, No Distress Cardiology CV Exam: Regular, Normal Sinus Rhythm Gastrointestinal/Abdomen GI Exam: Soft, Non-Tender, Distended Genitourinary Exam: Flank Non-Tender Integumentary Skin Exam: Clear, Warm Extremeties Extremities Exam: Moderate Edema, Pitting Edema, Dependent Edema Neurologic Neuro Exam: Alert, Awake, Oriented Psychiatric Psych Exam: Appropriate Responses Assessment/Plan Electrolyte Assessment: Hypernatremia, Hypokalemia Problem List: (1) Acute kidney injury ICD Codes: N17.9 - Acute kidney failure, unspecified Plan: Acute kidney injury with creatinine of 2.44 when consulted. Acute kidney injury most likely related to tumor lysis. On admission creatinine of 0.99. CT of abdomen on the with kidney with normal in size and shape. There is no mass, stone or hydronephrosis. Lobulated cysts in the upper poles of both kidneys with some benign-appearing calcification on the left Creatinine stable Plan Will monitor renal panel periodically Avoid nephrotoxins. Encouraged to elevate legs throughout day Continue Lasix increase to 40 mg BID and albumin Diuril discontinued Creatinine remains stable. K is low, check urine K level. Lasix stopped. (2) B-cell lymphoma ICD Codes: C85.10 - Unspecified B-cell lymphoma, unspecified site Status: Acute Plan: Oncology managing (3) Anemia ICD Codes: D64.9 - Anemia, unspecified Status: Acute Plan: Monitoring Transfusion today. Problem Qualifiers (1) Anemia: Qualified Codes: D64.9 - Anemia, unspecified Demi Mendez MD September 20, 2017 18:54
[2017-09-20] MEDS ORDERED: POTASSIUM CHLOR 40 MEQ PREMIX 100 ML IV ONE (20:00)
[2017-09-20] MEDS ORDERED: SPIRONOLACTONE 25 MG TAB PO SCH (21:00)
[2017-09-20] MEDS: TEMAZEPAM 15 MG CAP PO PRN (21:11)
[2017-09-21] VITALS (12 sets, daily range): BP systolic 138–155; BP diastolic 57–86; PULSE 80–99; RESP 18–22; TEMP 96.8–98.9; O2SAT 90–96
[2017-09-21] MEDS: CHLORHEXIDINE GLUCONATE 2 % 1 PACK (2 CLOTHS) TOP SCH (04:00)
[2017-09-21] MEDS: NYSTATIN 100,000 U/GM PWD 15 GM BTL TOPICAL SCH ×3 (06:00→22:34)
[2017-09-21] MEDS: ACYCLOVIR 200 MG CAP PO SCH (06:13)
[2017-09-21] MEDS: LORazepam 0.5 MG TAB PO PRN ×2 (06:13→09:54)
[2017-09-21] MEDS: AZTREONAM INJ 1,000 MG in SODIUM CHLORIDE 0.9% INJ 100 ML IV SCH ×3 (06:16→20:06)
[2017-09-21 06:39] LABS: HEMATOCRIT 21.1 % (39.0-51.0); HEMOGLOBIN 7.4 GM/DL (13.0-17.0); MEAN CELL VOLUME 84.9 FL (80.0-100.0); MEAN CORPUSCULAR HEMOGLOBIN 29.8 PG (27.0-34.0); MEAN PLATELET VOLUME 8.1 FL (7.0-11.0); RED BLOOD COUNT 2.49 MIL/MM3 (4.50-5.90); RED CELL DISTRIBUTION WIDTH 14.6 % (11.6-17.2); WHITE BLOOD COUNT 0.5 TH/MM3 (4.0-11.0)
[2017-09-21 06:47] LABS: PLATELET COUNT 9 TH/MM3 (150-450)
[2017-09-21 07:03] LABS: ALBUMIN 2.5 GM/DL (3.4-5.0); BICARBONATE 35.6 MEQ/L (21.0-32.0); CREATININE 1.17 MG/DL (0.60-1.30); DIRECT BILIRUBIN ADULT 2.6 MG/DL (0.0-0.2); MAGNESIUM 1.8 MG/DL (1.5-2.5); PHOSPHORUS 1.3 MG/DL (2.5-4.9)
[2017-09-21 07:15] LABS: INDIRECT BILIRUBIN 1.4 MG/DL (0.0-0.8); TOTAL PROTEIN 5.1 GM/DL (6.4-8.2)
[2017-09-21 08:03] LABS: BANDS 30 % (0-6); NEUTROPHIL # MANUAL DIFF 0.5 TH/MM3 (1.8-7.7); POLYS (SEG NEUTROPHILS) 70 % (16-70)
[2017-09-21 08:04] LABS: OVALOCYTES 1+ (NORMAL)
[2017-09-21] MEDS ORDERED: SPIRONOLACTONE 25 MG TAB PO SCH (09:00)
[2017-09-21] MEDS: FUROSEMIDE 20 MG/2 ML VIAL IV PUSH SCH ×3 (09:00→15:57)
--- NOTE | 2017-09-21 09:28 | PD.ONC.PN ---
Subjective Subjective Remarks Afebrile overnight. patient resting in bed. in much better spirits today. states his mouth feels better. swelling improved. Objective Data Date Time Temp Pulse Resp B/P (MAP) Pulse Ox O2 Delivery O2 Flow Rate FiO2 09/21/17 08:16 97.3 97 21 138/82 (100) 91 09/21/17 06:00 96.8 90 20 152/72 (98) 90 09/21/17 01:50 92 21 09/21/17 00:57 98.2 18 155/57 (89) 92 09/21/17 00:11 87 09/20/17 21:21 98.6 96 18 147/71 (96) 93 09/20/17 21:00 93 Room Air 09/20/17 20:03 104 09/20/17 18:43 99.0 104 18 158/73 (101) 91 09/20/17 16:20 91 09/20/17 15:53 Room Air 09/20/17 13:44 98.7 74 18 150/72 96 09/20/17 13:14 98.5 83 18 153/77 92 09/20/17 12:20 91 09/21/17 09/21/17 09/21/17 07:00 15:00 23:00 Intake Total 220 ml Balance 220 ml Result Diagram: 09/21/1761909/21/17619 Laboratory Results Laboratory Tests Test 09/20/17 22:15 09/21/17 01:00 09/21/17 01:40 09/21/17 06:20 Urine Total Volume 24 Hours 2475 ML Urine Potassium 24 Hour 82 MEQ/24HR Potassium Level 2.9 MEQ/L 3.0 MEQ/L Urine Random Potassium 27 MEQ/L White Blood Count 0.5 TH/MM3 Red Blood Count 2.49 MIL/MM3 Hemoglobin 7.4 GM/DL Hematocrit 21.1 % Mean Corpuscular Volume 84.9 FL Mean Corpuscular Hemoglobin 29.8 PG Mean Corpuscular Hemoglobin Concent 35.0 % Red Cell Distribution Width 14.6 % Platelet Count 9 TH/MM3 Mean Platelet Volume 8.1 FL CBC Comment AUTO DIFF Differential Total Cells Counted 10 Neutrophils % (Manual) 70 % Band Neutrophils % 30 % Neutrophils # (Manual) 0.5 TH/MM3 Differential Comment FINAL DIFF MANUAL Platelet Estimate LOW Platelet Morphology Comment NORMAL Ovalocytes 1+ Blood Urea Nitrogen 35 MG/DL Creatinine 1.17 MG/DL Random Glucose 137 MG/DL Total Protein 5.1 GM/DL Albumin 2.5 GM/DL Calcium Level 8.0 MG/DL Phosphorus Level 1.3 MG/DL Magnesium Level 1.8 MG/DL Alkaline Phosphatase 77 U/L Aspartate Amino Transf (AST/SGOT) 10 U/L Alanine Aminotransferase (ALT/SGPT) 24 U/L Total Bilirubin 4.0 MG/DL Direct Bilirubin 2.6 MG/DL Sodium Level 150 MEQ/L Chloride Level 108 MEQ/L Carbon Dioxide Level 35.6 MEQ/L Anion Gap 6 MEQ/L Estimat Glomerular Filtration Rate 61 ML/MIN Indirect Bilirubin 1.4 MG/DL Administered Medications Medications (Trade) Dose Ordered Sig/Robert Route PRN Reason Start Time Stop Time Status Last Admin Dose Admin Sodium Chloride (NS Flush) 2 ml UNSCH PRN IV FLUSH FLUSH AFTER USING IV ACCESS 08/29/17 15:45 09/08/17 23:42 Sodium Chloride (NS Flush) 2 ml BID IV FLUSH 08/29/17 21:00 09/20/17 21:12 Pantoprazole Sodium (Protonix Inj) 40 mg DAILY IV PUSH 08/30/17 09:00 09/20/17 09:56 Ondansetron HCl (Zofran Inj) 4 mg Q6H PRN IV PUSH NAUSEA OR VOMITING 08/29/17 16:00 09/09/17 10:08 Albuterol/ Ipratropium (Duoneb Neb) 1 ampule Q2HR NEB PRN INH WHEEZING 08/29/17 16:00 09/04/17 23:32 Chlorhexidine Gluconate (Chlorhexidine 2% Cloth) 3 pack Taper DAILY@04 TOP 08/30/17 04:00 08/26/18 03:59 09/13/17 05:13 Senna/Docusate Sodium ([place]-Colace) 1 tab BID PO 08/29/17 21:00 09/19/17 08:35 Albuterol Sulfate (Proair Hfa Inh) 2 puff Q6H PRN INH SHORTNESS OF BREATH 08/29/17 18:00 09/13/17 11:05 Budesonide/ Formoterol Fumarate (Symbicort 160-4.5 Mcg Inh) 2 puff BID INH 08/29/17 21:00 09/20/17 10:00 Morphine Sulfate (Morphine Inj) 2 mg Q4H PRN IV PUSH BREAKTHROUGH PAIN 09/01/17 16:00 09/17/17 23:07 Sodium Chloride (NS Flush) DAILY IVF 09/05/17 09:00 09/20/17 13:19 Heparin Sodium (Porcine) (Heparin Central Flush) DAILY IV FLUSH 09/05/17 09:00 09/20/17 09:00 Sodium Chloride (NS Flush) UNSCH PRN IVF SEE PROTOCOL 09/04/17 16:00 09/10/17 21:58 Sodium Chloride (NS Flush) UNSCH PRN IVF SEE PROTOCOL 09/04/17 16:00 09/10/17 21:59 Aztreonam 1000 mg/ Sodium Chloride 100 ml @ 200 mls/hr Q8H IV 09/06/17 12:00 09/21/17 06:16 Filgrastim 480 mcg/Dextrose 51.6 ml @ 100 mls/hr DAILY@14 IV 09/11/17 21:00 09/20/17 14:53 Zinc Oxide (Desitin 40% Oint) 1 applic UNSCH PRN TOPICAL DIAPER RASH 09/12/17 09:30 09/13/17 18:07 Nystatin (Mycostatin Powder) 1 applic Q8HR TOPICAL 09/12/17 09:30 09/19/17 21:34 Fluconazole (Diflucan) 100 mg DAILY PO 09/13/17 09:00 09/20/17 09:58 Lorazepam (Ativan) 0.5 mg Q6H PRN PO anxiety/ sleep 09/13/17 17:30 09/21/17 06:13 Multi-Ingredient Mouthwash/Gargle (Magic Mouthwash Adult Liq) 10 ml QID SWISH-SPIT 09/15/17 13:00 09/20/17 22:19 Oxycodone HCl (Roxicodone) 5 mg Q4H PRN PO pain 2-5 09/16/17 11:45 09/21/17 02:08 Oxycodone HCl (Roxicodone) 10 mg Q4H PRN PO pain 6-10 09/16/17 11:45 09/20/17 21:11 Acyclovir (Zovirax) 400 mg Q8HR PO 09/17/17 22:00 09/21/17 06:13 Furosemide (Lasix Inj) 40 mg DAILY@0900,1800 IV PUSH 09/18/17 18:00 Future hold 09/19/17 18:42 Albumin Human 100 ml @ 60 mls/hr Q12H IV 09/18/17 09:30 09/20/17 21:11 Temazepam (Restoril) 15 mg HS PRN PO insomnia 09/19/17 10:15 09/20/17 21:11 Sucralfate (Carafate Liq) 1 gm ACHS PO 09/20/17 12:00 09/20/17 22:18 Objective Remarks GENERAL: elderly male, sitting up in bed SKIN: Warm and dry. HEAD: Normocephalic. EYES: No injection or drainage. NECK: Supple, trachea midline. CARDIOVASCULAR: Regular rate and rhythm RESPIRATORY: Breath sounds equal bilaterally. No accessory muscle use. GASTROINTESTINAL: Abdomen soft, non-tender, nondistended. : scrotal swelling improved. jensen catheter in place with clear urine EXTREMITIES: No cyanosis. +improving edema, all extremities. NEUROLOGICAL: awake and alert. normal speech. moving all extremities. 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 ++also has bone pain, back pain, elevated LDH, as well as the sweats that suggests a more systemic manifestation of bone marrow disorder. ++ Nucleated red cells seen on peripheral smear. no acute blasts. CT C/A/P showing no LAD Discussed w/ oncologist in [facility]'s home town coordination of treatment when he leaves here. He has flight schedule 09/22/17. agreed to assume care, plan to fax records, appt to be made for the Sunday after his return home. 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 09/04: PICC line placement today, start R-EPOCH, give IT MTX. 09/05: Rituxan infusion complete. patient in TLS. transferred to ICU. machine tracer consulted. 09/06: start EPOCH, window closing as patient is now leukopenic. give blood and platelets. 09/07: give D2 EPOCH. give 1 unit pRBC, check repeat H/H. 09/08: give D3 EPOCH. 1 unit pRBC, 1 unit platelets. 09/09: D4 EPOCH, 2 units platelets. 09/10: D5--finish 4th bag of EPOCH, give Cytoxan this evening. 09/13/17: Continue G-CSF support 09/14/17: Transfuse 2 units packed red blood cells, 1 unit platelets 09/17/17: continue Neupogen. give 1 unit prbc 1 unit platelets. 09/18/17: start wound care instructions. 1 unit pRBC, 1 unit platelets. 09/20: edema improving. continue to replace potassium aggressively with diuresis. 09/21: WBC starting to recover. will plan to consult patient's neurosurgeon to ask them to place Ommaya reservoir when counts closer to recovery. (2) Anasarca ICD Codes: R60.1 - Generalized edema Plan: --nephrology following. --receiving Lasix IV + Albumin infusions. (3) Skin breakdown ICD Codes: L90.9 - Atrophic disorder of skin, unspecified Plan: --appreciate wound care assistance. improving. --Daly mattress started BID and PRN to Left Buttock 1. [place] Cavilon skin barrier film on purple non blanching pressure injury after gently cleansing 2. Apply Calazime skin protectant paste and leave open to air 3. Use ONLY disposable under pads for moisture (NO THICK COTTON UNDERPADS/DRAW SHEETS) *Reposition patient from left to right sides only. Limit time spent on back for therapies only* (4) Hypokalemia ICD Codes: E87.6 - Hypokalemia Plan: --due to diuresis. --continue to replace. (5) Hyperbilirubinemia ICD Codes: E80.6 - Other disorders of bilirubin metabolism Plan: --unclear etiology, will consult GI if continues to rise. Assessment 72y/o male with new diagnosis of Burkitt's lymphoma in the bone marrow given R- EPOCH chemo Plan 1. will plan to consult patient's neurosurgeon to ask them to place Ommaya reservoir when counts closer to recovery. 2. resume Lasix 3. monitor potassium 4. continue supportive care Attending Statement The exam, history, and the medical decision-making described in the above note were completed with the assistance of the mid-level provider. I reviewed and agree with the findings presented. I attest that I had a [id number] encounter with the patient on the same day, and personally performed and documented my assessment and findings in the medical record. PT seen and examined. Had a good day, tired and was in end early evening. He is eager to go back home. Optimistic that WBC coming back. Monitor recovery of RBC and platelets. Concerning is the splenomegaly not present before. This likely contribute to the thrombocytopenia. He has known CSF positive disease, he will need an Omaya for intrathecal if possible before his return to [place]. Laurita Davila September 21, 2017 09:28 Shahla Duron MD September 21, 2017 18:31
[2017-09-21] MEDS: DOCUSATE SODIUM 50 MG/SENNA 8.6 MG TAB PO SCH ×2 (09:54→21:00)
[2017-09-21] MEDS: FLUCONAZOLE 100 MG TAB PO SCH (09:54)
[2017-09-21] MEDS: NYSTAT/DIPHENHY/LIDO MOUTHWASH (Adult) 120ML SWISH-SPIT SCH ×4 (09:55→22:32)
[2017-09-21] MEDS: ALBUMIN 25% INJ 100 ML IV SCH ×2 (09:55→22:32)
[2017-09-21] MEDS: SODIUM CHLORIDE 0.9% FLUSH 10 ML FLUSH IV FLUSH SCH ×2 (10:04→22:32)
[2017-09-21] MEDS: PANTOPRAZOLE SODIUM 40 MG VIAL IV PUSH SCH (10:04)
[2017-09-21] MEDS: SODIUM CHLORIDE 0.9% FLUSH 10 ML FLUSH IVF SCH (10:05)
--- NOTE | 2017-09-21 11:02 | HHI.NPPN ---
Subjective General Problems: Edema Renal Failure: Acute History of Present Illness Patient is a 72 year old male with a past medical history of prostate cancer, asthma, gastroesophageal reflux, Muñoz's esophagus,hypertension, new anemia, new thrombocytopenia, rotator cuff injury, and back pain. 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 Patient was receiving Rituxan last night and developed a reaction with low grade temperature, pain, and tremor. Plan to transfer patient to intensive care unit as patient is at risk for fluid overload with blood transfusions and acute kidney injury. Nephrology is consulted for acute kidney injury with creatinine of 2.44 with a admission creatinine of 0.99. HGB is low at 7.2, Plt of 27, NA 148, CO2 14.5. Patient is resting comfortably now with his only complaint is that is dizzy with ambulation. Additional Remarks Patient is alert, no SOB, started eating some liquids, and drinking ensure. Review of Systems Respiratory Respiratory Remarks Denies any SOB Cardiovascular Cardiac: Edema Cardiac Remarks Denies any CP Gastrointestinal GI Remarks Denies any abdominal pain Objective Data Data Vital Signs Date Time Temp Pulse Resp B/P (MAP) Pulse Ox O2 Delivery O2 Flow Rate FiO2 09/21/17 08:16 97.3 97 21 138/82 (100) 91 09/21/17 06:00 96.8 90 20 152/72 (98) 90 09/21/17 01:50 92 21 09/21/17 00:57 98.2 18 155/57 (89) 92 09/21/17 00:11 87 09/20/17 21:21 98.6 96 18 147/71 (96) 93 09/20/17 21:00 93 Room Air 09/20/17 20:03 104 09/20/17 18:43 99.0 104 18 158/73 (101) 91 09/20/17 16:20 91 09/20/17 15:53 Room Air 09/20/17 13:44 98.7 74 18 150/72 96 09/20/17 13:14 98.5 83 18 153/77 92 09/20/17 12:20 91 -: 09/21/17 0620 09/21/17 0620 Physical Exam General Appearance: No Acute Distress, Comfortable, Anxious Throat Throat Exam: Oral Mucosa [place] & Moist Pulmonary Resp Exam: Breath Sounds Equal, No Distress Cardiology CV Exam: Regular, Normal Sinus Rhythm Gastrointestinal/Abdomen GI Exam: Soft, Non-Tender, Distended Genitourinary Exam: Flank Non-Tender Integumentary Skin Exam: Clear, Warm Extremeties Extremities Exam: Moderate Edema, Pitting Edema, Dependent Edema Neurologic Neuro Exam: Alert, Awake, Oriented Psychiatric Psych Exam: Appropriate Responses Assessment/Plan Electrolyte Assessment: Hypernatremia, Hypokalemia Problem List: (1) Acute kidney injury ICD Codes: N17.9 - Acute kidney failure, unspecified Plan: Acute kidney injury with creatinine of 2.44 when consulted. Acute kidney injury most likely related to tumor lysis. On admission creatinine of 0.99. CT of abdomen on the with kidney with normal in size and shape. There is no mass, stone or hydronephrosis. Lobulated cysts in the upper poles of both kidneys with some benign-appearing calcification on the left Creatinine stable Plan Will monitor renal panel periodically Avoid nephrotoxins. Encouraged to elevate legs throughout day Continue Lasix increase to 40 mg BID and albumin Creatinine is stable at 1.1, K is 3.0. Restarted on Lasix and Aldactone. (2) B-cell lymphoma ICD Codes: C85.10 - Unspecified B-cell lymphoma, unspecified site Status: Acute Plan: Oncology managing (3) Anemia ICD Codes: D64.9 - Anemia, unspecified Status: Acute Plan: Monitoring Transfusion today. Problem Qualifiers (1) Anemia: Qualified Codes: D64.9 - Anemia, unspecified Demi Mendez MD September 21, 2017 11:02
[2017-09-21] MEDS: BUDESONIDE-FORMOTEROL 160/4.5 MCG INHALER INH SCH ×2 (11:17→22:31)
[2017-09-21] MEDS: SUCRALFATE 1 GM/10 ML CUP PO SCH ×4 (11:17→22:32)
[2017-09-21] MEDS ORDERED: D5W + KCL 20 MEQ INJ 1,000 ML IV SCH (11:30)
[2017-09-21] MEDS ORDERED: POTASSIUM PHOSPHATE MONOBASIC 500 MG TAB PO ONE (12:00)
[2017-09-21] MEDS ORDERED: POTASSIUM CHLORIDE 25 MEQ EFFERVESCENT TAB PO ONE (12:00)
--- NOTE | 2017-09-21 12:23 | HHI.PR ---
Subjective Remarks Patient sitting up in chair at bedside. Says he is feeling all right. Denies any chest pain shortness of breath. Reports bilateral lower extremity edema is improving. Objective Vital Signs Date Time Temp Pulse Resp B/P (MAP) Pulse Ox O2 Delivery O2 Flow Rate FiO2 09/21/17 08:16 97.3 97 21 138/82 (100) 91 09/21/17 06:00 96.8 90 20 152/72 (98) 90 09/21/17 01:50 92 21 09/21/17 00:57 98.2 18 155/57 (89) 92 09/21/17 00:11 87 09/20/17 21:21 98.6 96 18 147/71 (96) 93 09/20/17 21:00 93 Room Air 09/20/17 20:03 104 09/20/17 18:43 99.0 104 18 158/73 (101) 91 09/20/17 16:20 91 09/20/17 15:53 Room Air 09/20/17 13:44 98.7 74 18 150/72 96 09/20/17 13:14 98.5 83 18 153/77 92 I/O 09/20/17 09/20/17 09/20/17 09/21/17 09/21/17 09/21/17 07:00 15:00 23:00 07:00 15:00 23:00 Intake Total 619 ml 600 ml 220 ml Output Total 2250 ml Balance -2250 ml 619 ml 600 ml 220 ml Intake Oral 600 ml 120 ml IV Total 100 ml Packed Cells 400 ml Platelets 219 ml Output Urine Total 2250 ml # Bowel Movements 1 1 1 Result Diagram: 09/21/17 0620 09/21/17 0620 Objective Remarks GENERAL: Patient sitting up in chair. Appears comfortable. SKIN: Warm and dry. HEAD: Normocephalic. EYES: No scleral icterus. No injection or drainage. NECK: Supple, trachea midline. No JVD. CARDIOVASCULAR: Regular rate and rhythm without murmurs, gallops, or rubs. RESPIRATORY: Breath sounds equal bilaterally. No accessory muscle use. GASTROINTESTINAL: Abdomen soft, non-tender, nondistended. MUSCULOSKELETAL: No cyanosis. 3+ edema bilateral lower extremities. No blistering or broken skin. BACK: Nontender without obvious deformity. No CVA tenderness. A/P Assessment and Plan === 09/21/17 //Hypokalemia. Improving 3.0. Replace. Monitor. //Hypophosphatemia. 1.3. Replace. //Hypernatremia. Sodium 150. Start D5 fluids. Try small potassium tablets to minimize IV fluid use. //Anasarca. Continue scheduled albumin. Minimize fluids. //Anemia 7.4 after transfusion yesterday. No signs of bleeding. Continue to monitor. //Thrombocytopenia platelets of 9. Plan as per hematology. Appreciate assistance. 72y/o male with anemia + thrombocytopenia. History of prostate cancer, status post prostatectomy, coronary artery disease, s/p stent placement. 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 //Septic shock - resolved //E coli and strep viridans bacteremia - repeat blood cx are negative to date. Etiology of E coli in blood - No evidence of a UTI based on symptoms. ID consulted for further recommendation. Continue IV aztreonam for now.Echocardiogram shows an EF of 55-60% with moderate concentric left ventricular hypertrophy. No vegetation reported. //Tumor lysis syndrome - Resolved. Allopurinol on hold. Monitor closely. //Hyperkalemia now hypokalemia and hypocalcemia.-Continue to replace. Monitor closely. //LUCA/hypernatremia- creatinine trending down, good urine output. Continue half normal saline due to hypernatremia. Monitor BMPs every 6 hours. Cautioned to not overcorrect quickly sodium levels. Encourage p.o. hydration ( 250ml water q4-6hrs while awake). Nephrology following, appreciate recs. Pt has been started on diuril. Monitor Cr closely. //Metabolic acidosis - improved //Pancytopenia - requiring multiple transfusions ( ~daily). Transfusion and G -CSF per oncology. Transfuse 1 unit packed red blood cells and 1U PLT today 09/20/17 Transfuse to keep platelets greater than 10,000, hemoglobin greater than 7.5 Continue Neupogen //Burkitt's lymphoma receiving chemo. Management per hematology //History of prostate cancer status post XRT //Diarrhea - seems to have resolved, monitor. //Oral thrush/ mucositis give magic wash, //Scrotal edema/excoriations slight improved. Give lasix 20 mg IV scheduled and albumin IV. Monitor UOP. , monitor closely kidney function. Replenish electrolytes. Consult wound care, discussed with Edith mahoney wound care and with the nurse . Recommendation sfor wound care. Scrotal tears noted, pt having pain with urination due to urine touching those open tears and burning. Dr. Duron doesn't recommend placing a jensen as he is at high risk for bleeding due to his low plt count and also high risk for infection due to his neutropenia. Desitin cream and lidocaine jelly to be applied. Keep pt dry as much as possible. Place a condom catheter, will do but at this time, edema is too much and this cannot be done. Nystatin powder also ordered Patient however with significant scrotal edema and pain, has a Jensen placed with orange urine, fairly good OP. //Insomnia: Add temazepam Discharge Planning Continue to replace electrolytes Transfusing to keep hemoglobin and platelets within acceptable limits CM assisting with DC planning as family wishes to pursue care in [place] has a plane ticket for 09/22/17 Discussed with oncology. Krunal Downs MD September 21, 2017 12:23
[2017-09-21] MEDS ORDERED: POTASSIUM CHLORIDE 10 MEQ CONTROLLED RELEASE TAB PO ONE (12:30)
[2017-09-21] MEDS: FILGRASTIM INJ 480 MCG in DEXTROSE 5% IN WATER INJ 50 ML IV SCH ×2 (15:57)
--- NOTE | 2017-09-21 18:03 | HHI.IDPN ---
Note Infectious Disease Note Patient feels much better. He states that his mouth feels a lot better. Ambulated the hallways with physical therapy. Denies nausea or vomiting. Denies chills, cough, shortness of breath, abdominal pain. Afebrile. WBC is 0.5 today. Diagnosed with Burkitt lymphoma. The patient completed chemotherapy on 09/10. He has been receiving antibiotics for E. coli bacteremia, which was cultured on 09/06. PAST MEDICAL HISTORY: Asthma, gastroesophageal reflux disease, hypertension, history of prostate cancer, history of prostatectomy, history of cholecystectomy, history of coronary stent x 2. ALLERGIES: PENICILLIN. THE PATIENT RECALLS ALLERGIC REACTION FROM CHILDHOOD, BUT NO SPECIFIC DETAILS. QUINOLONES, DIPHENHYDRAMINE, HYDROCODONE, MEPERIDINE. MEDICATIONS: Current Medications Medications (Trade) Dose Ordered Sig/Robert Route PRN Reason Start Time Stop Time Status Last Admin Dose Admin Sodium Chloride (NS Flush) 2 ml UNSCH PRN IV FLUSH FLUSH AFTER USING IV ACCESS 08/29/17 15:45 09/08/17 23:42 Sodium Chloride (NS Flush) 2 ml BID IV FLUSH 08/29/17 21:00 09/21/17 10:04 Pantoprazole Sodium (Protonix Inj) 40 mg DAILY IV PUSH 08/30/17 09:00 09/21/17 10:04 Ondansetron HCl (Zofran Inj) 4 mg Q6H PRN IV PUSH NAUSEA OR VOMITING 08/29/17 16:00 09/09/17 10:08 Albuterol/ Ipratropium (Duoneb Neb) 1 ampule Q2HR NEB PRN INH WHEEZING 08/29/17 16:00 09/04/17 23:32 Miscellaneous Information 1 [id number] XX 08/29/17 15:45 Chlorhexidine Gluconate (Chlorhexidine 2% Cloth) 3 pack Taper DAILY@04 TOP 08/30/17 04:00 08/26/18 03:59 09/13/17 05:13 Chlorhexidine Gluconate (Chlorhexidine 2% Cloth) 3 pack UNSCH PRN TOP HYGIENIC CARE 08/29/17 15:45 Senna/Docusate Sodium (Madina-Colace) 1 tab BID PO 08/29/17 21:00 09/21/17 09:54 Magnesium Hydroxide (Milk Of Magnesia Liq) 30 ml Q12H PRN PO Mild constipation 08/29/17 16:00 Sennosides (Senokot) 17.2 mg Q12H PRN PO Moderate constipation 08/29/17 16:00 Bisacodyl (Dulcolax Supp) 10 mg DAILY PRN RECTAL SEVERE CONSITIPATION 08/29/17 16:00 Lactulose (Lactulose Liq) 30 ml DAILY PRN PO SEVERE CONSITIPATION 08/29/17 16:00 Albuterol Sulfate (Proair Hfa Inh) 2 puff Q6H PRN INH SHORTNESS OF BREATH 08/29/17 18:00 09/13/17 11:05 Budesonide/ Formoterol Fumarate (Symbicort 160-4.5 Mcg Inh) 2 puff BID INH 08/29/17 21:00 09/21/17 11:17 Morphine Sulfate (Morphine Inj) 2 mg Q4H PRN IV PUSH BREAKTHROUGH PAIN 09/01/17 16:00 09/17/17 23:07 Sodium Chloride (NS Flush) DAILY IVF 09/05/17 09:00 09/21/17 10:05 Heparin Sodium (Porcine) (Heparin Central Flush) DAILY IV FLUSH 09/05/17 09:00 09/21/17 09:00 Sodium Chloride (NS Flush) UNSCH PRN IVF SEE PROTOCOL 09/04/17 16:00 09/10/17 21:58 Heparin Sodium (Porcine) (Heparin Central Flush) UNSCH PRN IV FLUSH SEE PROTOCOL 09/04/17 16:00 Sodium Chloride (NS Flush) UNSCH PRN IVF SEE PROTOCOL 09/04/17 16:00 09/10/17 21:59 Terbutaline Sulfate (Brethine Inj) 1 mg UNSCH PRN SQ For Extravasation 09/06/17 10:15 Aztreonam 1000 mg/ Sodium Chloride 100 ml @ 200 mls/hr Q8H IV 09/06/17 12:00 09/21/17 12:13 Filgrastim 480 mcg/Dextrose 51.6 ml @ 100 mls/hr DAILY@14 IV 09/11/17 21:00 09/21/17 15:57 Zinc Oxide (Desitin 40% Oint) 1 applic UNSCH PRN TOPICAL DIAPER RASH 09/12/17 09:30 09/13/17 18:07 Nystatin (Mycostatin Powder) 1 applic Q8HR TOPICAL 09/12/17 09:30 09/21/17 14:00 Fluconazole (Diflucan) 100 mg DAILY PO 09/13/17 09:00 09/21/17 09:54 Lorazepam (Ativan) 0.5 mg Q6H PRN PO anxiety/ sleep 09/13/17 17:30 09/21/17 09:54 Multi-Ingredient Mouthwash/Gargle (Magic Mouthwash Adult Liq) 10 ml QID SWISH-SPIT 09/15/17 13:00 09/21/17 09:55 Simethicone (Mylicon Chew) 80 mg TID PRN CHEW gas 09/15/17 11:45 Oxycodone HCl (Roxicodone) 5 mg Q4H PRN PO pain 2-5 09/16/17 11:45 09/21/17 02:08 Oxycodone HCl (Roxicodone) 10 mg Q4H PRN PO pain 6-10 09/16/17 11:45 09/20/17 21:11 Furosemide (Lasix Inj) 40 mg DAILY@0900,1800 IV PUSH 09/18/17 18:00 Future hold 09/21/17 15:57 Albumin Human 100 ml @ 60 mls/hr Q12H IV 09/18/17 09:30 09/21/17 09:55 Temazepam (Restoril) 15 mg HS PRN PO insomnia 09/19/17 10:15 09/20/17 21:11 Sucralfate (Carafate Liq) 1 gm ACHS PO 09/20/17 12:00 09/21/17 15:51 Multivitamins (Theragran) 1 tab DAILY PO 09/21/17 18:00 Calcium Carbonate (Oscal) 500 mg DAILY PO 09/21/17 18:00 Spironolactone (Aldactone) 25 mg DAILY PO 09/21/17 09:00 Future hold Potassium Chloride/Dextrose 1,000 ml @ 35 mls/hr Q24H IV 09/21/17 11:30 09/22/17 07:29 09/21/17 12:13 Famciclovir (Famvir) 500 mg Q8HR PO 09/21/17 22:00 SOCIAL HISTORY: The patient resides in [place], [place]. No tobacco, rare alcohol use. No illicit drugs. Objective: Vital Signs Date Time Temp Pulse Resp B/P (MAP) Pulse Ox O2 Delivery O2 Flow Rate FiO2 09/21/17 12:34 98.9 87 20 150/83 (105) 96 09/21/17 12:00 80 09/21/17 09:00 99 09/21/17 09:00 98 Nasal Cannula 2.00 09/21/17 08:16 97.3 97 21 138/82 (100) 91 09/21/17 06:00 96.8 90 20 152/72 (98) 90 09/21/17 01:50 92 21 09/21/17 00:57 98.2 18 155/57 (89) 92 09/21/17 00:11 87 09/20/17 21:21 98.6 96 18 147/71 (96) 93 09/20/17 21:00 93 Room Air 09/20/17 20:03 104 09/20/17 18:43 99.0 104 18 158/73 (101) 91 Laboratory Tests Test 09/20/17 05:48 09/21/17 06:20 White Blood Count 0.1 TH/MM3 0.5 TH/MM3 Red Blood Count 2.28 MIL/MM3 2.49 MIL/MM3 Hemoglobin 6.7 GM/DL 7.4 GM/DL Hematocrit 19.1 % 21.1 % Mean Corpuscular Volume 84.1 FL 84.9 FL Mean Corpuscular Hemoglobin 29.4 PG 29.8 PG Mean Corpuscular Hemoglobin Concent 35.0 % 35.0 % Red Cell Distribution Width 15.0 % 14.6 % Platelet Count 6 TH/MM3 9 TH/MM3 Mean Platelet Volume 8.0 FL 8.1 FL CBC Comment AUTO DIFF AUTO DIFF Differential Total Cells Counted 10 10 Neutrophils % (Manual) 80 % 70 % Lymphocytes % 10 % Monocytes % 10 % Neutrophils # (Manual) 0.1 TH/MM3 0.5 TH/MM3 Differential Comment FINAL DIFF MANUAL FINAL DIFF MANUAL Platelet Estimate RARE LOW Platelet Morphology Comment NORMAL NORMAL Band Neutrophils % 30 % Ovalocytes 1+ Laboratory Tests Test 09/20/17 05:48 09/21/17 01:00 09/21/17 06:20 Blood Urea Nitrogen 37 MG/DL 35 MG/DL Creatinine 1.16 MG/DL 1.17 MG/DL Random Glucose 140 MG/DL 137 MG/DL Total Protein 4.6 GM/DL 5.1 GM/DL Albumin 2.3 GM/DL 2.5 GM/DL Calcium Level 7.7 MG/DL 8.0 MG/DL Magnesium Level 1.6 MG/DL 1.8 MG/DL Alkaline Phosphatase 79 U/L 77 U/L Aspartate Amino Transf (AST/SGOT) 6 U/L 10 U/L Alanine Aminotransferase (ALT/SGPT) 23 U/L 24 U/L Total Bilirubin 3.6 MG/DL 4.0 MG/DL Direct Bilirubin 2.3 MG/DL 2.6 MG/DL Sodium Level 146 MEQ/L 150 MEQ/L Potassium Level 2.6 MEQ/L 2.9 MEQ/L 3.0 MEQ/L Chloride Level 103 MEQ/L 108 MEQ/L Carbon Dioxide Level 36.3 MEQ/L 35.6 MEQ/L Anion Gap 7 MEQ/L 6 MEQ/L Estimat Glomerular Filtration Rate 62 ML/MIN 61 ML/MIN Indirect Bilirubin 1.3 MG/DL 1.4 MG/DL Phosphorus Level 1.3 MG/DL Imaging: Liver Ultrasound 09/20/17 0000 Signed Impressions: Service Date/Time: September 16:29 - CONCLUSION: 1. Cholecystectomy. 2. Complex cyst right kidney measures 4.4 cm. 3. Splenomegaly. Srikanth Ambrosio MD Chest X-Ray 09/05/17 0000 Signed Impressions: Service Date/Time: Tuesday, September 05, 2017 01:50 - CONCLUSION: 1. Right PICC line in superior vena cava. Subsegmental basilar airspace disease. No effusion or pneumothorax. Cory Camarena MD PICC Line Insertion 09/04/17 0600 Signed Impressions: Service Date/Time: Monday, September 04, 2017 15:12 - CONCLUSION: 1. Uncomplicated central venous Power PICC line placement. 2. The PICC line can be used immediately. Santy Burciaga Jr., MD Lumbar Puncture Fluoroscopy 09/04/17 0000 Signed Impressions: Service Date/Time: Monday, September 04, 2017 15:12 - CONCLUSION: Uncomplicated fluoroscopically guided lumbar puncture with pressures as above. Intrathecal methotrexate was administered. Santy Burciaga Jr., MD Chest CT 09/01/17 0000 Signed Impressions: Service Date/Time: Friday, September 01, 2017 16:48 - CONCLUSION: 1. No definite evidence for metastatic disease to the thorax. 2. 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 3. Scattered atelectasis and scarring in the lungs. 4. Moderate coronary calcifications. Cory Camarena MD Abdomen/Pelvis CT 09/01/17 0000 Signed Impressions: Service Date/Time: Friday, September 01, 2017 16:48 - CONCLUSION: 1. Post surgical changes with findings of cholecystectomy and prostatectomy. 2. Scattered diverticular disease of the colon without diverticulitis. 3. Lobulated cyst in the upper poles of both kidneys with some calcification on the left. 4. Retroperitoneal fat herniates through the left hemidiaphragm into the posterior left lung base. 5. No acute intraperitoneal or pelvic process to explain current clinical symptoms Gavin Lynn MD Bone Biopsy CT 08/30/17 1535 Signed Impressions: Service Date/Time: August 16:19 - CONCLUSION: 1. Uncomplicated CT guided bone marrow aspirate. 2. Uncomplicated CT guided bone marrow biopsy. Srikanth Ambrosio MD Thoracic Spine CT 08/30/1799 Signed Impressions: Service Date/Time: August 01:37 - CONCLUSION: 1. No fracture, subluxation or other acute abnormality of the thoracic spine. 2. Scoliosis and mild multifocal degenerative changes as above. 3. Complex appearing cystic structures of the upper poles of both kidneys. Comparison to any previous outside facility studies is recommended to confirm chronicity and stability. Contrast enhanced study of the abdomen suggested if felt clinically indicated, preferably MRI if there are no contraindications. Tim Jones MD Lumbar Spine CT 08/30/1799 Signed Impressions: Service Date/Time: August 01:37 - CONCLUSION: 1. No acute fracture or acute subluxation of the lumbar spine. 2. 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 3. Mild spinal and bilateral foraminal stenosis at L4/L5. 4. Mild right and moderate left foraminal stenosis at L5/S1. 5. Benign vertebral body hemangioma of L1. No concerning lumbar spine bone lesion. Tim Jones MD Head CT 08/30/1799 Signed Impressions: Service Date/Time: August 01:37 - CONCLUSION: Small frontal madina-falcine subdural blood is unchanged. Tim Jones MD Carotid Artery Ultrasound 08/30/17 0000 Signed Impressions: Service Date/Time: August 07:52 - CONCLUSION: 1. Diffuse calcified plaque throughout carotid arteries bilaterally with resultant moderate, 50-69%%, stenosis of the internal carotid arteries bilaterally and likely moderate stenosis of the left common carotid artery. 2. Antegrade vertebral artery flow bilaterally. Lopez Taylor MD Brain MRI 08/30/17 0000 Signed Impressions: Service Date/Time: August 09:27 - CONCLUSION: 1. Right frontal parafalcine abnormality on CT exam corresponds to a small meningioma. No definitive intra-or extra-axial hemorrhage. Lopez Taylor MD PHYSICAL EXAMINATION: GENERAL: No acute distress. HEENT: Extraocular movements are grossly intact. Pupils reactive to light. No icterus. Oropharynx, mucosa is Very dry. Ulcers at the posterior oropharynx and upper palate. NECK: Supple without adenopathy. LUNGS: Clear breath sounds. HEART: Regular S1 and S2. No murmurs, rubs or gallop. ABDOMEN: Obese, soft, diminished bowel sounds. Nontender. : Swelling of the scrotum has decreased. EXTREMITIES: Diffuse 3+ edema involving both upper and lower extremities. Punctate petechial lesions at the lower extremities. Some petechiae at the right upper arm area of IV catheter. SKIN: No diffuse rash. Ecchymosis at the right anterior neck. NEUROLOGIC: Nonfocal. PSYCHIATRIC: Calm and cooperative. IMPRESSION: 1. Persistent profound neutropenia and thrombocytopenia in patient with Burkitt lymphoma. Status post chemotherapy. Her blood cell count appears to be improving. Patient at high risk for infection. 3. Severe mucositis. 4. Diffuse anasarca. 5. Elevated direct bilirubin. Possible medication effect. Can be caused by acyclovir. 6. Bacteremia due to E. coli. Treated and resolved. RECOMMENDATIONS: 1. Continue aztreonam intravenous. 2. Continue Diflucan. 3. Change acyclovir to famciclovir. Monitor the bilirubin. 4. Continue oral nystatin. 5. Monitor the temperature. 6. Blood cultures if he develops fever. 7. Broaden antibiotics if he develops fever. Dontfraid,Estevan F MD September 21, 2017 18:03
[2017-09-21] MEDS: MULTIVITAMIN TAB PO SCH (18:25)
[2017-09-21] MEDS: CALCIUM CARBONATE 1.25 GM (CA 500 MG) TAB PO SCH (18:26)
[2017-09-21] MEDS: FAMCICLOVIR 500 MG TAB PO SCH (22:33)
[2017-09-22] VITALS (11 sets, daily range): BP systolic 134–166; BP diastolic 76–85; PULSE 80–91; RESP 15–20; TEMP 97.7–99.3; O2SAT 93–95
[2017-09-22] MEDS: CHLORHEXIDINE GLUCONATE 2 % 1 PACK (2 CLOTHS) TOP SCH (04:00)
[2017-09-22] MEDS: AZTREONAM INJ 1,000 MG in SODIUM CHLORIDE 0.9% INJ 100 ML IV SCH ×3 (05:08→20:47)
[2017-09-22] MEDS: FAMCICLOVIR 500 MG TAB PO SCH ×3 (05:15→21:40)
[2017-09-22] MEDS: NYSTATIN 100,000 U/GM PWD 15 GM BTL TOPICAL SCH ×3 (05:15→20:52)
[2017-09-22 06:05] LABS: MEAN CELL VOLUME 85.6 FL (80.0-100.0); MEAN CORPUSCULAR HEMOGLOBIN 29.7 PG (27.0-34.0); MEAN CORPUSCULAR HGB CONC 34.7 % (32.0-36.0); MEAN PLATELET VOLUME 9.1 FL (7.0-11.0); RED BLOOD COUNT 2.26 MIL/MM3 (4.50-5.90); WHITE BLOOD COUNT 1.2 TH/MM3 (4.0-11.0)
[2017-09-22 06:10] LABS: HEMOGLOBIN 6.7 GM/DL (13.0-17.0)
[2017-09-22 06:11] LABS: HEMATOCRIT 19.3 % (39.0-51.0); PLATELET COUNT 5 TH/MM3 (150-450)
[2017-09-22 06:27] LABS: ALBUMIN 2.7 GM/DL (3.4-5.0); BICARBONATE 35.8 MEQ/L (21.0-32.0); CALCIUM 7.7 MG/DL (8.5-10.1); CREATININE 1.12 MG/DL (0.60-1.30); DIRECT BILIRUBIN ADULT 2.8 MG/DL (0.0-0.2); INDIRECT BILIRUBIN 1.6 MG/DL (0.0-0.8); MAGNESIUM 1.6 MG/DL (1.5-2.5); TOTAL BILIRUBIN ADULT 4.4 MG/DL (0.2-1.0)
[2017-09-22] MEDS ORDERED: SODIUM CHLOR 0.9% 250 ML INJ 250 ML IV ONE (07:30)
[2017-09-22 08:52] LABS: BANDS 35 % (0-6); LYMPHOCYTES 8 % (9-44); MONOCYTES 5 % (0-8); MYELOCYTES 1 % (0-0); POLYS (SEG NEUTROPHILS) 51 % (16-70)
[2017-09-22 08:53] LABS: DOHLE BODIES PRESENT (NONE SEEN); TOXIC GRANULATION 3+ (NORMAL)
--- NOTE | 2017-09-22 08:56 | PD.ONC.PN ---
Subjective Subjective Remarks Afebrile overnight. Patient resting in bed in nad. No complaints. Objective Data Date Time Temp Pulse Resp B/P (MAP) Pulse Ox O2 Delivery O2 Flow Rate FiO2 09/22/17 05:00 97.8 91 20 166/85 (112) 94 09/22/17 02:18 95 Nasal Cannula 2.00 09/22/17 00:58 97.7 90 20 139/78 (98) 95 09/22/17 00:04 90 09/21/17 20:11 97.5 90 20 148/75 (99) 93 09/21/17 20:05 89 09/21/17 18:00 97.9 93 22 152/86 (108) 96 09/21/17 16:00 98 09/21/17 12:34 98.9 87 20 150/83 (105) 96 09/21/17 12:00 80 09/21/17 09:00 99 09/21/17 09:00 98 Nasal Cannula 2.00 09/22/17 09/22/17 09/22/17 07:00 15:00 23:00 Intake Total 680 ml Output Total 1300 ml Balance -620 ml Result Diagram: 09/22/17 0500 09/22/17 0500 Laboratory Results Laboratory Tests Test 09/22/17 05:00 White Blood Count 1.2 TH/MM3 Red Blood Count 2.26 MIL/MM3 Hemoglobin 6.7 GM/DL Hematocrit 19.3 % Mean Corpuscular Volume 85.6 FL Mean Corpuscular Hemoglobin 29.7 PG Mean Corpuscular Hemoglobin Concent 34.7 % Red Cell Distribution Width 15.0 % Platelet Count 5 TH/MM3 Mean Platelet Volume 9.1 FL CBC Comment AUTO DIFF Blood Urea Nitrogen 38 MG/DL Creatinine 1.12 MG/DL Random Glucose 135 MG/DL Total Protein 5.0 GM/DL Albumin 2.7 GM/DL Calcium Level 7.7 MG/DL Magnesium Level 1.6 MG/DL Alkaline Phosphatase 139 U/L Aspartate Amino Transf (AST/SGOT) 39 U/L Alanine Aminotransferase (ALT/SGPT) 52 U/L Total Bilirubin 4.4 MG/DL Direct Bilirubin 2.8 MG/DL Sodium Level 147 MEQ/L Potassium Level 2.9 MEQ/L Chloride Level 105 MEQ/L Carbon Dioxide Level 35.8 MEQ/L Anion Gap 6 MEQ/L Estimat Glomerular Filtration Rate 64 ML/MIN Indirect Bilirubin 1.6 MG/DL Administered Medications Medications (Trade) Dose Ordered Sig/Robert Route PRN Reason Start Time Stop Time Status Last Admin Dose Admin Sodium Chloride (NS Flush) 2 ml UNSCH PRN IV FLUSH FLUSH AFTER USING IV ACCESS 08/29/17 15:45 09/08/17 23:42 Sodium Chloride (NS Flush) 2 ml BID IV FLUSH 08/29/17 21:00 09/21/17 22:32 Pantoprazole Sodium (Protonix Inj) 40 mg DAILY IV PUSH 08/30/17 09:00 09/21/17 10:04 Ondansetron HCl (Zofran Inj) 4 mg Q6H PRN IV PUSH NAUSEA OR VOMITING 08/29/17 16:00 09/09/17 10:08 Albuterol/ Ipratropium (Duoneb Neb) 1 ampule Q2HR NEB PRN INH WHEEZING 08/29/17 16:00 09/04/17 23:32 Chlorhexidine Gluconate (Chlorhexidine 2% Cloth) 3 pack Taper DAILY@04 TOP 08/30/17 04:00 08/26/18 03:59 09/13/17 05:13 Senna/Docusate Sodium (Madina-Colace) 1 tab BID PO 08/29/17 21:00 09/21/17 09:54 Albuterol Sulfate (Proair Hfa Inh) 2 puff Q6H PRN INH SHORTNESS OF BREATH 08/29/17 18:00 09/13/17 11:05 Budesonide/ Formoterol Fumarate (Symbicort 160-4.5 Mcg Inh) 2 puff BID INH 08/29/17 21:00 09/21/17 22:31 Morphine Sulfate (Morphine Inj) 2 mg Q4H PRN IV PUSH BREAKTHROUGH PAIN 09/01/17 16:00 09/17/17 23:07 Sodium Chloride (NS Flush) DAILY IVF 09/05/17 09:00 09/21/17 10:05 Heparin Sodium (Porcine) (Heparin Central Flush) DAILY IV FLUSH 09/05/17 09:00 09/21/17 09:00 Sodium Chloride (NS Flush) UNSCH PRN IVF SEE PROTOCOL 09/04/17 16:00 09/10/17 21:58 Sodium Chloride (NS Flush) UNSCH PRN IVF SEE PROTOCOL 09/04/17 16:00 09/10/17 21:59 Aztreonam 1000 mg/ Sodium Chloride 100 ml @ 200 mls/hr Q8H IV 09/06/17 12:00 09/22/17 05:08 Filgrastim 480 mcg/Dextrose 51.6 ml @ 100 mls/hr DAILY@14 IV 09/11/17 21:00 09/21/17 15:57 Zinc Oxide (Desitin 40% Oint) 1 applic UNSCH PRN TOPICAL DIAPER RASH 09/12/17 09:30 09/13/17 18:07 Nystatin (Mycostatin Powder) 1 applic Q8HR TOPICAL 09/12/17 09:30 09/21/17 22:34 Fluconazole (Diflucan) 100 mg DAILY PO 09/13/17 09:00 09/21/17 09:54 Lorazepam (Ativan) 0.5 mg Q6H PRN PO anxiety/ sleep 09/13/17 17:30 09/21/17 09:54 Multi-Ingredient Mouthwash/Gargle (Magic Mouthwash Adult Liq) 10 ml QID SWISH-SPIT 09/15/17 13:00 09/21/17 22:32 Oxycodone HCl (Roxicodone) 5 mg Q4H PRN PO pain 2-5 09/16/17 11:45 09/21/17 02:08 Oxycodone HCl (Roxicodone) 10 mg Q4H PRN PO pain 6-10 09/16/17 11:45 09/22/17 05:09 Furosemide (Lasix Inj) 40 mg DAILY@0900,1800 IV PUSH 09/18/17 18:00 Future hold 09/21/17 15:57 Albumin Human 100 ml @ 60 mls/hr Q12H IV 09/18/17 09:30 09/21/17 22:32 Temazepam (Restoril) 15 mg HS PRN PO insomnia 09/19/17 10:15 09/20/17 21:11 Sucralfate (Carafate Liq) 1 gm ACHS PO 09/20/17 12:00 09/21/17 22:32 Multivitamins (Theragran) 1 tab DAILY PO 09/21/17 18:00 09/21/17 18:25 Calcium Carbonate (Oscal) 500 mg DAILY PO 09/21/17 18:00 09/21/17 18:26 Famciclovir (Famvir) 500 mg Q8HR PO 09/21/17 22:00 09/22/17 05:15 Objective Remarks GENERAL: elderly male, lying supine in bed resting. SKIN: Warm and dry. HEAD: Normocephalic. EYES: No injection or drainage. NECK: Supple, trachea midline. CARDIOVASCULAR: Regular rate and rhythm RESPIRATORY: Breath sounds equal bilaterally. No accessory muscle use. GASTROINTESTINAL: Abdomen soft, non-tender, nondistended. EXTREMITIES: No cyanosis. +improving edema, all extremities. NEUROLOGICAL: awake, alert. normal speech. moving extremities. 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 CT C/A/P showing no LAD Discussed w/ oncologist in [facility]'s home town coordination of treatment when he leaves here. He has flight schedule 10/09/17. agreed to assume care, plan to fax records, appt to be made for the Sunday after his return home. 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 09/04: PICC line placement today, start R-EPOCH, give IT MTX. 09/05: Rituxan infusion complete. patient in TLS. transferred to ICU. harness racing handicapper consulted. 09/06: start EPOCH, window closing as patient is now leukopenic. give blood and platelets. 09/07: give D2 EPOCH. give 1 unit pRBC, check repeat H/H. 09/08: give D3 EPOCH. 1 unit pRBC, 1 unit platelets. 09/09: D4 EPOCH, 2 units platelets. 09/10: D5--finish 4th bag of EPOCH, give Cytoxan this evening. 09/13/17: Continue G-CSF support 09/14/17: Transfuse 2 units packed red blood cells, 1 unit platelets 09/17/17: continue Neupogen. give 1 unit prbc 1 unit platelets. 09/18/17: start wound care instructions. 1 unit pRBC, 1 unit platelets. 09/20: edema improving. continue to replace potassium aggressively with diuresis. 09/21: WBC starting to recover. will plan to consult patient's neurosurgeon to ask them to place Ommaya reservoir when counts closer to recovery. 09/22: WBC continuing to recover. will give blood and platelets today. (2) Anasarca ICD Codes: R60.1 - Generalized edema Plan: --nephrology following. --receiving Lasix IV + Albumin infusions. (3) Skin breakdown ICD Codes: L90.9 - Atrophic disorder of skin, unspecified Plan: --appreciate wound care assistance. improving. --Daly mattress started BID and PRN to Left Buttock 1. Otwell Cavilon skin barrier film on purple non blanching pressure injury after gently cleansing 2. Apply Calazime skin protectant paste and leave open to air 3. Use ONLY disposable under pads for moisture (NO THICK COTTON UNDERPADS/DRAW SHEETS) *Reposition patient from left to right sides only. Limit time spent on back for therapies only* (4) Hypokalemia ICD Codes: E87.6 - Hypokalemia Plan: --due to diuresis. --continue to replace. (5) Hyperbilirubinemia ICD Codes: E80.6 - Other disorders of bilirubin metabolism Plan: --unclear etiology, will consult GI if continues to rise. Assessment 72y/o male with new diagnosis of Burkitt's lymphoma in the bone marrow given R- EPOCH chemo Plan 1. continue to replace potassium 2. monitor WBC 3. consult GI for rising bilirubin, suspect drug effect, but the etiology is unclear Attending Statement The exam, history, and the medical decision-making described in the above note were completed with the assistance of the mid-level provider. I reviewed and agree with the findings presented. I attest that I had a [id number] encounter with the patient on the same day, and personally performed and documented my assessment and findings in the medical record. Patient is out of bed to chair. Complaining of extreme weakness and fatigue. is at bedside. Patient denies any fever or bleeding. Patient is still has severe pancytopenia with thrombocytopenia and anemia. Blood and platelet transfusion today. Patient will have a Ommaya catheter next week. Await bone marrow recovery. Continue present antibiotics. Monitor CBC. Discussed with patient and and answered their questions. Laurita Davila September 22, 2017 08:56 Toni Pablo MD September 22, 2017 18:18
[2017-09-22] MEDS: SODIUM CHLORIDE 0.9% FLUSH 10 ML FLUSH IVF SCH (09:00)
[2017-09-22] MEDS: DOCUSATE SODIUM 50 MG/SENNA 8.6 MG TAB PO SCH ×2 (09:00→20:52)
[2017-09-22] MEDS: FLUCONAZOLE 100 MG TAB PO SCH (09:44)
[2017-09-22] MEDS: CALCIUM CARBONATE 1.25 GM (CA 500 MG) TAB PO SCH (09:44)
[2017-09-22] MEDS: MULTIVITAMIN TAB PO SCH (09:44)
[2017-09-22] MEDS: SUCRALFATE 1 GM/10 ML CUP PO SCH ×4 (09:44→20:48)
[2017-09-22] MEDS: SODIUM CHLORIDE 0.9% FLUSH 10 ML FLUSH IV FLUSH SCH ×2 (09:45→20:48)
[2017-09-22] MEDS: NYSTAT/DIPHENHY/LIDO MOUTHWASH (Adult) 120ML SWISH-SPIT SCH ×4 (09:45→20:52)
[2017-09-22] MEDS: ALBUMIN 25% INJ 100 ML IV SCH ×2 (09:45→21:39)
[2017-09-22] MEDS: PANTOPRAZOLE SODIUM 40 MG VIAL IV PUSH SCH (09:45)
[2017-09-22] MEDS ORDERED: POTASSIUM CHLORIDE 10 MEQ CONTROLLED RELEASE TAB PO ONE (09:45)
[2017-09-22] MEDS: FUROSEMIDE 20 MG/2 ML VIAL IV PUSH SCH ×2 (09:57→19:19)
[2017-09-22] MEDS: BUDESONIDE-FORMOTEROL 160/4.5 MCG INHALER INH SCH ×2 (10:11→20:49)
[2017-09-22] MEDS: MAGNESIUM OXIDE 400 MG TAB PO SCH ×2 (10:19→20:48)
--- NOTE | 2017-09-22 12:18 | HHI.GIFU ---
Subjective Remarks Patient is sitting up in the bed eating very soft foods including applesauce Does have sensation of tiredness and malaise but no nausea or vomiting No abdominal pain Afebrile Objective Vitals I&O Vital Signs Date Time Temp Pulse Resp B/P (MAP) Pulse Ox O2 Delivery O2 Flow Rate FiO2 09/22/17 11:28 98.3 90 20 135/79 95 09/22/17 08:07 98.3 90 20 135/79 (97) 95 09/22/17 08:07 Nasal Cannula 2.00 09/22/17 05:00 97.8 91 20 166/85 (112) 94 09/22/17 02:18 95 Nasal Cannula 2.00 09/22/17 00:58 97.7 90 20 139/78 (98) 95 09/22/17 00:04 90 09/21/17 20:11 97.5 90 20 148/75 (99) 93 09/21/17 20:05 89 09/21/17 18:00 97.9 93 22 152/86 (108) 96 09/21/17 16:00 98 09/21/17 12:34 98.9 87 20 150/83 (105) 96 I/O 09/21/17 09/21/17 09/21/17 09/22/17 09/22/17 09/22/17 07:00 15:00 23:00 07:00 15:00 23:00 Intake Total 220 ml 100 ml 100 ml 680 ml Output Total 950 ml 1300 ml 1025 ml Balance 220 ml 100 ml -850 ml -620 ml -1025 ml Intake Oral 120 ml 480 ml IV Total 100 ml 100 ml 100 ml 200 ml Output Urine Total 950 ml 1300 ml 1025 ml # Bowel Movements 1 Laboratory Laboratory Tests Test 09/22/17 05:00 White Blood Count 1.2 Red Blood Count 2.26 Hemoglobin 6.7 Hematocrit 19.3 Mean Corpuscular Volume 85.6 Mean Corpuscular Hemoglobin 29.7 Mean Corpuscular Hemoglobin Concent 34.7 Red Cell Distribution Width 15.0 Platelet Count 5 Mean Platelet Volume 9.1 CBC Comment AUTO DIFF Differential Total Cells Counted 100 Neutrophils % (Manual) 51 Band Neutrophils % 35 Lymphocytes % 8 Monocytes % 5 Neutrophils # (Manual) 1.0 Myelocytes 1 Differential Comment FINAL DIFF MANUAL Toxic Granulation 3+ Dohle Bodies PRESENT Platelet Estimate RARE Platelet Morphology Comment NORMAL Blood Urea Nitrogen 38 Creatinine 1.12 Random Glucose 135 Total Protein 5.0 Albumin 2.7 Calcium Level 7.7 Magnesium Level 1.6 Alkaline Phosphatase 139 Aspartate Amino Transf (AST/SGOT) 39 Alanine Aminotransferase (ALT/SGPT) 52 Total Bilirubin 4.4 Direct Bilirubin 2.8 Sodium Level 147 Potassium Level 2.9 Chloride Level 105 Carbon Dioxide Level 35.8 Anion Gap 6 Estimat Glomerular Filtration Rate 64 Phosphorus Level 1.2 Indirect Bilirubin 1.6 Date/Time Source Procedure Growth Status 09/08/17 13:20 Blood Peripheral Aerobic Blood Culture - Final NO GROWTH IN 5 DAYS Complete 09/08/17 13:20 Blood Peripheral Anaerobic Blood Culture - Final NO GROWTH IN 5 DAYS Complete Imaging Last Impressions Liver Ultrasound 09/20/17 0000 Signed Impressions: Service Date/Time: September 16:29 - CONCLUSION: 1. Cholecystectomy. 2. Complex cyst right kidney measures 4.4 cm. 3. Splenomegaly. Srikanth Ambrosio MD Chest X-Ray 09/05/17 0000 Signed Impressions: Service Date/Time: Tuesday, September 05, 2017 01:50 - CONCLUSION: 1. Right PICC line in superior vena cava. Subsegmental basilar airspace disease. No effusion or pneumothorax. Cory Camarena MD PICC Line Insertion 09/04/17 0600 Signed Impressions: Service Date/Time: Monday, September 04, 2017 15:12 - CONCLUSION: 1. Uncomplicated central venous Power PICC line placement. 2. The PICC line can be used immediately. Santy Burciaga Jr., MD Lumbar Puncture Fluoroscopy 09/04/17 0000 Signed Impressions: Service Date/Time: Monday, September 04, 2017 15:12 - CONCLUSION: Uncomplicated fluoroscopically guided lumbar puncture with pressures as above. Intrathecal methotrexate was administered. Santy Burciaga Jr., MD Chest CT 09/01/17 0000 Signed Impressions: Service Date/Time: Friday, September 01, 2017 16:48 - CONCLUSION: 1. No definite evidence for metastatic disease to the thorax. 2. 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 3. Scattered atelectasis and scarring in the lungs. 4. Moderate coronary calcifications. Cory Camarena MD Abdomen/Pelvis CT 09/01/17 0000 Signed Impressions: Service Date/Time: Friday, September 01, 2017 16:48 - CONCLUSION: 1. Post surgical changes with findings of cholecystectomy and prostatectomy. 2. Scattered diverticular disease of the colon without diverticulitis. 3. Lobulated cyst in the upper poles of both kidneys with some calcification on the left. 4. Retroperitoneal fat herniates through the left hemidiaphragm into the posterior left lung base. 5. No acute intraperitoneal or pelvic process to explain current clinical symptoms Gavin Lynn MD Bone Biopsy CT 08/30/17 1535 Signed Impressions: Service Date/Time: August 16:19 - CONCLUSION: 1. Uncomplicated CT guided bone marrow aspirate. 2. Uncomplicated CT guided bone marrow biopsy. Srikanth Ambrosio MD Thoracic Spine CT 08/30/17 0100 Signed Impressions: Service Date/Time: August 01:37 - CONCLUSION: 1. No fracture, subluxation or other acute abnormality of the thoracic spine. 2. Scoliosis and mild multifocal degenerative changes as above. 3. Complex appearing cystic structures of the upper poles of both kidneys. Comparison to any previous outside facility studies is recommended to confirm chronicity and stability. Contrast enhanced study of the abdomen suggested if felt clinically indicated, preferably MRI if there are no contraindications. Tim Jones MD Lumbar Spine CT 08/30/17 0100 Signed Impressions: Service Date/Time: August 01:37 - CONCLUSION: 1. No acute fracture or acute subluxation of the lumbar spine. 2. 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 3. Mild spinal and bilateral foraminal stenosis at L4/L5. 4. Mild right and moderate left foraminal stenosis at L5/S1. 5. Benign vertebral body hemangioma of L1. No concerning lumbar spine bone lesion. Tim Jones MD Head CT 08/30/17 0100 Signed Impressions: Service Date/Time: August 01:37 - CONCLUSION: Small frontal maddy-falcine subdural blood is unchanged. Tim Jones MD Carotid Artery Ultrasound 08/30/17 0000 Signed Impressions: Service Date/Time: August 07:52 - CONCLUSION: 1. Diffuse calcified plaque throughout carotid arteries bilaterally with resultant moderate, 50-69%%, stenosis of the internal carotid arteries bilaterally and likely moderate stenosis of the left common carotid artery. 2. Antegrade vertebral artery flow bilaterally. Lopez Taylor MD Brain MRI 08/30/17 0000 Signed Impressions: Service Date/Time: August 09:27 - CONCLUSION: 1. Right frontal parafalcine abnormality on CT exam corresponds to a small meningioma. No definitive intra-or extra-axial hemorrhage. Lopez Taylor MD Physical Exam HEENT: Normocephalic; atraumatic, CHEST: CTA, no rhonchi CARDIAC: RRR ABDOMEN: Large, round, soft, nontender, bowel sounds active EXTREMITIES: 3+ bilateral extremity edema. SKIN: pale; no rash; + jaundice. ELECTRIC MELT OPERATOR: No focal deficits; alert and oriented times three. Assessment and Plan Plan Assessment: - Anemia- normocytic- on admission H/H was 7.8/23.2 S/P 2 U PRBCs currently 8.6/ 24.3 Pt does report one dark stool, had taken Pepto-Bismol prior. Emesis on day of admission. with similar symptoms and diarrhea, after they both ate Bone-fish grill. Hematology following- bone marrow biopsy done yesterday- results pending. Abs retic-15 Retic count-0.7 Haptoglobin-129 [id number] Pt reports last EGD and colonoscopy done 2 years ago - Thrombocytopenia - platelets 5 on admission, now S/P 3 U platelets currently 48 - History of RI S/P stent placement x 2 in 2003- only on ASA at home- previously on Plavix. - Abnormal imaging- MRI brain --> Right frontal parafalcine abnormality on CT exam corresponds to a small meningioma. No definitive intro or extra-axial hemorrhage. Pt with complaints of dizziness on arrival (09/01) --> Pt with no GI complaints at this time. No repeat CBC from today. Per oncology notes flow cytometry from bone marrow biopsy indicated preliminary findings of CD10 B-cell lymphoma. Still waiting on final result they expect to be back by early next week. (09/02) --> Pt with no GI complaints at this time, did have diarrhea last night following oral contrast for a CT scan. Drop in platelets since 08/31- too low for endoscopic procedures. No obvious GIB, endoscopic procedures are not emergent at this time. Will defer to oncology to determine platelet transfusion and hold on GI procedures at this time. Pt may go back on regular diet. Prep cancelled fro today. CT abdomen and pelvis W IV contrast (09/01) --> Post surgical changes with findings of cholecystectomy and prostatectomy. Scattered diverticular disease of the colon without diverticulitis. Lobulated cyst in the upper poles of both kidneys with some calcification on the left. Retroperitoneal fat herniates through the left hemidiaphragm into the posterior left lung base. No acute intraperitoneal or pelvic process to explain current clinical symptoms. 09/03/17 PLT dropping, 17 today. BM bx pending. no obvious GIB. hgb 8.6 today , received 1 x prbc last night hematology following 09/04/17 starting chemo for Burkitts. PLT 31 today. hgb dropped to 7.9. bx bonemarrow pending 09/22/2017 gastroenterology was reconsulted to evaluate hyperbilirubinemia. Labs note general increase over the past couple of days. 09/20/2017 showed bilirubin at 3.6 and now 4.4 today. LFTs show gradual increase of AST to 39 ALT 52. Patient does have enlarged spleen and liver to light palpation, but denies any abdominal pain. These increased labs could be related to patient's B -cell lymphoma and chemotherapy treatment. Liver ultrasound shows Plan Diet soft foods as tolerated per attending Recheck labs in the a.m. with special attention to bilirubin and LFTs. If gradual increase continues to be noticed, do CT scan routine contrast to rule out any masses or acute changes Supportive care Patient was seen per myself and Dr. Bob, note was written on his behalf Guadalupe Ma September 22, 2017 12:18
--- NOTE | 2017-09-22 13:04 | HHI.NPPN ---
Subjective General Problems: Edema Renal Failure: Acute History of Present Illness Patient is a 72 year old male with a past medical history of prostate cancer, asthma, gastroesophageal reflux, Muñoz's esophagus,hypertension, new anemia, new thrombocytopenia, rotator cuff injury, and back pain. 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 Patient was receiving Rituxan last night and developed a reaction with low grade temperature, pain, and tremor. Plan to transfer patient to intensive care unit as patient is at risk for fluid overload with blood transfusions and acute kidney injury. Nephrology is consulted for acute kidney injury with creatinine of 2.44 with a admission creatinine of 0.99. HGB is low at 7.2, Plt of 27, NA 148, CO2 14.5. Patient is resting comfortably now with his only complaint is that is dizzy with ambulation. Additional Remarks Patient is alert, now started eating some, not in distress. Review of Systems Respiratory Respiratory Remarks Denies any SOB Cardiovascular Cardiac: Edema Cardiac Remarks Denies any CP Gastrointestinal GI Remarks Denies any abdominal pain Objective Data Data 09/22/17 09/23/17 19:00 07:00 Intake Total 216 ml Output Total 1025 ml Balance -809 ml Platelets 216 ml Output Urine Total 1025 ml Vital Signs Date Time Temp Pulse Resp B/P (MAP) Pulse Ox O2 Delivery O2 Flow Rate FiO2 09/22/17 11:50 99.3 87 20 152/77 94 09/22/17 11:28 98.3 90 20 135/79 95 09/22/17 08:07 98.3 90 20 135/79 (97) 95 09/22/17 08:07 Nasal Cannula 2.00 09/22/17 05:00 97.8 91 20 166/85 (112) 94 09/22/17 02:18 95 Nasal Cannula 2.00 09/22/17 00:58 97.7 90 20 139/78 (98) 95 09/22/17 00:04 90 09/21/17 20:11 97.5 90 20 148/75 (99) 93 09/21/17 20:05 89 09/21/17 18:00 97.9 93 22 152/86 (108) 96 09/21/17 16:00 98 -: 09/22/17 0500 09/22/17 0500 Physical Exam General Appearance: No Acute Distress, Comfortable, Anxious Throat Throat Exam: Oral Mucosa [place] & Moist Pulmonary Resp Exam: Breath Sounds Equal, No Distress Cardiology CV Exam: Regular, Normal Sinus Rhythm Gastrointestinal/Abdomen GI Exam: Soft, Non-Tender, Distended Genitourinary Exam: Flank Non-Tender Integumentary Skin Exam: Clear, Warm Extremeties Extremities Exam: Moderate Edema, Pitting Edema, Dependent Edema Neurologic Neuro Exam: Alert, Awake, Oriented Psychiatric Psych Exam: Appropriate Responses Assessment/Plan Electrolyte Assessment: Hypernatremia, Hypokalemia Problem List: (1) Acute kidney injury ICD Codes: N17.9 - Acute kidney failure, unspecified Plan: Acute kidney injury with creatinine of 2.44 when consulted. Acute kidney injury most likely related to tumor lysis. On admission creatinine of 0.99. CT of abdomen on the with kidney with normal in size and shape. There is no mass, stone or hydronephrosis. Lobulated cysts in the upper poles of both kidneys with some benign-appearing calcification on the left Creatinine stable Plan Will monitor renal panel periodically Avoid nephrotoxins. Encouraged to elevate legs throughout day Continue Lasix increase to 40 mg BID and albumin Creatinine is stable at 1.1, K is 2.6. on Lasix and Aldactone. Urine K is 27, which is high with low serum K. I will increase Aldactone to BID. (2) B-cell lymphoma ICD Codes: C85.10 - Unspecified B-cell lymphoma, unspecified site Status: Acute Plan: Oncology managing (3) Anemia ICD Codes: D64.9 - Anemia, unspecified Status: Acute Plan: Monitoring Transfusion today. Problem Qualifiers (1) Anemia: Qualified Codes: D64.9 - Anemia, unspecified Demi Mendez MD September 22, 2017 13:04
[2017-09-22] MEDS: FILGRASTIM INJ 480 MCG in DEXTROSE 5% IN WATER INJ 50 ML IV SCH ×2 (13:46)
--- NOTE | 2017-09-22 15:10 | HHI.PR ---
Subjective Remarks Patient denies any chest pain or shortness of breath. Denies nausea or vomiting. He does report mouth soreness slightly worse today. Feels like the Magic mouthwash is causing irritation rather than helping. Objective Vital Signs Date Time Temp Pulse Resp B/P (MAP) Pulse Ox O2 Delivery O2 Flow Rate FiO2 09/22/17 11:50 99.3 87 20 152/77 94 09/22/17 11:28 98.3 90 20 135/79 95 09/22/17 08:07 98.3 90 20 135/79 (97) 95 09/22/17 08:07 Nasal Cannula 2.00 09/22/17 05:00 97.8 91 20 166/85 (112) 94 09/22/17 02:18 95 Nasal Cannula 2.00 09/22/17 00:58 97.7 90 20 139/78 (98) 95 09/22/17 00:04 90 09/21/17 20:11 97.5 90 20 148/75 (99) 93 09/21/17 20:05 89 09/21/17 18:00 97.9 93 22 152/86 (108) 96 09/21/17 16:00 98 I/O 09/21/17 09/21/17 09/21/17 09/22/17 09/22/17 09/22/17 07:00 15:00 23:00 07:00 15:00 23:00 Intake Total 220 ml 100 ml 100 ml 680 ml 216 ml Output Total 950 ml 1300 ml 1025 ml Balance 220 ml 100 ml -850 ml -620 ml -809 ml Intake Oral 120 ml 480 ml IV Total 100 ml 100 ml 100 ml 200 ml Platelets 216 ml Output Urine Total 950 ml 1300 ml 1025 ml # Bowel Movements 1 Result Diagram: 09/22/17 0500 09/22/17 0500 Objective Remarks GENERAL: Patient sitting up in chair. Appears comfortable. SKIN: Warm and dry. HEAD: Normocephalic. EYES: No scleral icterus. No injection or drainage. NECK: Supple, trachea midline. No JVD. CARDIOVASCULAR: Regular rate and rhythm without murmurs, gallops, or rubs. RESPIRATORY: Breath sounds equal bilaterally. No accessory muscle use. GASTROINTESTINAL: Abdomen soft, non-tender, nondistended. MUSCULOSKELETAL: No cyanosis. 3+ edema bilateral lower extremities, however slightly improved today. No blistering or broken skin. BACK: Nontender without obvious deformity. No CVA tenderness. A/P Assessment and Plan === 09/22/17 //Hypokalemia. 2.9. replace. Monitor. //Hypophosphatemia. 1.2. Replace IV //Hypernatremia. Sodium 147. Improved after hypotonic fluids. Discontinue fluids and monitor //Anasarca. Continue scheduled albumin. Continue Jensen for monitoring output. Minimize fluids. //Anemia 6.7. Transfusion ordered by oncology. Appreciate assistance. //Thrombocytopenia platelets of 5. Regimen as per hematology. //Oral irritation. Patient says Magic mouthwash is irritating. Will order lidocaine prior to eating. 72y/o male with anemia + thrombocytopenia. History of prostate cancer, status post prostatectomy, coronary artery disease, s/p stent placement. 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 //Septic shock - resolved //E coli and strep viridans bacteremia - repeat blood cx are negative to date. Etiology of E coli in blood - No evidence of a UTI based on symptoms. ID consulted for further recommendation. Continue IV aztreonam for now.Echocardiogram shows an EF of 55-60% with moderate concentric left ventricular hypertrophy. No vegetation reported. //Tumor lysis syndrome - Resolved. Allopurinol on hold. Monitor closely. //Hyperkalemia now hypokalemia and hypocalcemia.-Continue to replace. Monitor closely. //LUCA/hypernatremia- creatinine trending down, good urine output. Continue half normal saline due to hypernatremia. Monitor BMPs every 6 hours. Cautioned to not overcorrect quickly sodium levels. Encourage p.o. hydration ( 250ml water q4-6hrs while awake). Nephrology following, appreciate recs. Pt has been started on diuril. Monitor Cr closely. //Metabolic acidosis - improved //Pancytopenia - requiring multiple transfusions ( ~daily). Transfusion and G -CSF per oncology. Transfuse 1 unit packed red blood cells and 1U PLT today 09/20/17 Transfuse to keep platelets greater than 10,000, hemoglobin greater than 7.5 Continue Neupogen //Burkitt's lymphoma receiving chemo. Management per hematology //History of prostate cancer status post XRT //Diarrhea - seems to have resolved, monitor. //Oral thrush/ mucositis give magic wash, //Scrotal edema/excoriations slight improved. Give lasix 20 mg IV scheduled and albumin IV. Monitor UOP. , monitor closely kidney function. Replenish electrolytes. Consult wound care, discussed with Edith [facility]oney wound care and with the nurse . Recommendation sfor wound care. Scrotal tears noted, pt having pain with urination due to urine touching those open tears and burning. Dr. Duron doesn't recommend placing a jensen as he is at high risk for bleeding due to his low plt count and also high risk for infection due to his neutropenia. Desitin cream and lidocaine jelly to be applied. Keep pt dry as much as possible. Place a condom catheter, will do but at this time, edema is too much and this cannot be done. Nystatin powder also ordered Patient however with significant scrotal edema and pain, has a Jensen placed with orange urine, fairly good OP. //Insomnia: Add temazepam Discharge Planning Continue to replace electrolytes Transfusing to keep hemoglobin and platelets within acceptable limits CM assisting with DC planning as family wishes to pursue care in [place] has a plane ticket for 09/22/17 Discussed with oncology today. Krunal Downs MD September 22, 2017 15:10
[2017-09-22] MEDS ORDERED: POTASSIUM PHOSPHATE INJ 15 MMOL in SODIUM CHLORIDE 0.9% INJ 150 ML IV ONE (15:15)
[2017-09-22] MEDS: SPIRONOLACTONE 25 MG TAB PO SCH (20:48)
[2017-09-22] MEDS: TEMAZEPAM 15 MG CAP PO PRN (21:40)
[2017-09-23] VITALS (14 sets, daily range): BP systolic 123–153; BP diastolic 67–84; PULSE 77–97; RESP 18–20; TEMP 97.6–99; O2SAT 92–95
[2017-09-23] MEDS: CHLORHEXIDINE GLUCONATE 2 % 1 PACK (2 CLOTHS) TOP SCH (04:00)
[2017-09-23] MEDS: AZTREONAM INJ 1,000 MG in SODIUM CHLORIDE 0.9% INJ 100 ML IV SCH ×3 (04:19→20:54)
[2017-09-23] MEDS: FAMCICLOVIR 500 MG TAB PO SCH ×3 (04:28→20:54)
[2017-09-23] MEDS: NYSTATIN 100,000 U/GM PWD 15 GM BTL TOPICAL SCH ×3 (04:29→21:57)
[2017-09-23 06:31] LABS: MEAN CELL VOLUME 86.3 FL (80.0-100.0); MEAN CORPUSCULAR HEMOGLOBIN 29.5 PG (27.0-34.0); MEAN CORPUSCULAR HGB CONC 34.2 % (32.0-36.0); MEAN PLATELET VOLUME 8.2 FL (7.0-11.0); RED BLOOD COUNT 2.27 MIL/MM3 (4.50-5.90); RED CELL DISTRIBUTION WIDTH 14.6 % (11.6-17.2); WHITE BLOOD COUNT 2.3 TH/MM3 (4.0-11.0)
[2017-09-23 06:43] LABS: HEMOGLOBIN 6.7 GM/DL (13.0-17.0)
[2017-09-23 06:44] LABS: HEMATOCRIT 19.6 % (39.0-51.0); PLATELET COUNT 11 TH/MM3 (150-450)
[2017-09-23 07:02] LABS: ALBUMIN 2.6 GM/DL (3.4-5.0); BICARBONATE 34.1 MEQ/L (21.0-32.0); CALCIUM 7.7 MG/DL (8.5-10.1); CREATININE 1.04 MG/DL (0.60-1.30); MAGNESIUM 1.6 MG/DL (1.5-2.5)
[2017-09-23 07:03] LABS: DIRECT BILIRUBIN ADULT 1.2 MG/DL (0.0-0.2); PHOSPHORUS 1.2 MG/DL (2.5-4.9)
[2017-09-23 07:28] LABS: INDIRECT BILIRUBIN 1.1 MG/DL (0.0-0.8); TOTAL BILIRUBIN ADULT 2.3 MG/DL (0.2-1.0); TOTAL PROTEIN 4.8 GM/DL (6.4-8.2)
[2017-09-23] MEDS ORDERED: SODIUM CHLOR 0.9% 250 ML INJ 250 ML IV ONE (07:45)
[2017-09-23] MEDS: ALBUMIN 25% INJ 100 ML IV SCH ×2 (08:48→21:56)
[2017-09-23] MEDS: SPIRONOLACTONE 25 MG TAB PO SCH ×2 (08:49→20:54)
[2017-09-23] MEDS: CALCIUM CARBONATE 1.25 GM (CA 500 MG) TAB PO SCH (08:49)
[2017-09-23] MEDS: NYSTAT/DIPHENHY/LIDO MOUTHWASH (Adult) 120ML SWISH-SPIT SCH ×4 (08:49→20:58)
[2017-09-23] MEDS: MAGNESIUM OXIDE 400 MG TAB PO SCH ×2 (08:49→20:54)
[2017-09-23] MEDS: DOCUSATE SODIUM 50 MG/SENNA 8.6 MG TAB PO SCH ×2 (08:49→20:58)
[2017-09-23] MEDS: SODIUM CHLORIDE 0.9% FLUSH 10 ML FLUSH IV FLUSH SCH ×2 (08:50→20:54)
[2017-09-23] MEDS: PANTOPRAZOLE SODIUM 40 MG VIAL IV PUSH SCH (08:50)
[2017-09-23] MEDS: SUCRALFATE 1 GM/10 ML CUP PO SCH (08:50)
[2017-09-23] MEDS: FUROSEMIDE 20 MG/2 ML VIAL IV PUSH SCH ×2 (08:50→17:50)
[2017-09-23] MEDS: MULTIVITAMIN TAB PO SCH (08:51)
[2017-09-23] MEDS: BUDESONIDE-FORMOTEROL 160/4.5 MCG INHALER INH SCH ×2 (09:05→20:55)
--- NOTE | 2017-09-23 09:20 | PD.ONC.PN ---
Subjective Subjective Remarks Afebrile overnight. Patient states he feels good today. Mouth sores improving. Eager to get out of the hospital. Objective Data Date Time Temp Pulse Resp B/P (MAP) Pulse Ox O2 Delivery O2 Flow Rate FiO2 09/23/17 08:06 98.7 87 18 143/77 (99) 93 09/23/17 04:25 98.9 88 20 141/75 (97) 93 09/23/17 03:01 82 09/23/17 00:04 97 09/23/17 00:00 99.0 94 20 125/67 (86) 92 09/22/17 22:40 16 09/22/17 20:55 95 Nasal Cannula 2.00 09/22/17 20:45 Room Air 09/22/17 20:42 97.7 87 15 134/76 (95) 93 09/22/17 20:05 90 09/22/17 15:52 98.0 80 20 140/77 94 09/22/17 15:16 98.0 81 20 144/79 94 09/22/17 11:50 99.3 87 20 152/77 94 09/22/17 11:28 98.3 90 20 135/79 95 09/23/17 09/23/17 09/23/17 07:00 15:00 23:00 Intake Total 720 ml Output Total 1450 ml 700 ml Balance -730 ml -700 ml Result Diagram: 09/23/17 0610 09/23/17 0610 Laboratory Results Laboratory Tests Test 09/23/17 06:10 White Blood Count 2.3 TH/MM3 Red Blood Count 2.27 MIL/MM3 Hemoglobin 6.7 GM/DL Hematocrit 19.6 % Mean Corpuscular Volume 86.3 FL Mean Corpuscular Hemoglobin 29.5 PG Mean Corpuscular Hemoglobin Concent 34.2 % Red Cell Distribution Width 14.6 % Platelet Count 11 TH/MM3 Mean Platelet Volume 8.2 FL CBC Comment AUTO DIFF Blood Urea Nitrogen 38 MG/DL Creatinine 1.04 MG/DL Random Glucose 145 MG/DL Total Protein 4.8 GM/DL Albumin 2.6 GM/DL Calcium Level 7.7 MG/DL Phosphorus Level 1.2 MG/DL Magnesium Level 1.6 MG/DL Alkaline Phosphatase 137 U/L Aspartate Amino Transf (AST/SGOT) 18 U/L Alanine Aminotransferase (ALT/SGPT) 42 U/L Total Bilirubin 2.3 MG/DL Direct Bilirubin 1.2 MG/DL Sodium Level 149 MEQ/L Potassium Level 3.1 MEQ/L Chloride Level 108 MEQ/L Carbon Dioxide Level 34.1 MEQ/L Anion Gap 7 MEQ/L Estimat Glomerular Filtration Rate 70 ML/MIN Indirect Bilirubin 1.1 MG/DL Administered Medications Medications (Trade) Dose Ordered Sig/Robert Route PRN Reason Start Time Stop Time Status Last Admin Dose Admin Sodium Chloride (NS Flush) 2 ml UNSCH PRN IV FLUSH FLUSH AFTER USING IV ACCESS 08/29/17 15:45 09/08/17 23:42 Sodium Chloride (NS Flush) 2 ml BID IV FLUSH 08/29/17 21:00 09/23/17 08:50 Pantoprazole Sodium (Protonix Inj) 40 mg DAILY IV PUSH 08/30/17 09:00 09/23/17 08:50 Ondansetron HCl (Zofran Inj) 4 mg Q6H PRN IV PUSH NAUSEA OR VOMITING 08/29/17 16:00 09/09/17 10:08 Albuterol/ Ipratropium (Duoneb Neb) 1 ampule Q2HR NEB PRN INH WHEEZING 08/29/17 16:00 09/04/17 23:32 Chlorhexidine Gluconate (Chlorhexidine 2% Cloth) Taper DAILY@04 TOP 08/30/17 04:00 08/26/18 03:59 09/13/17 05:13 Senna/Docusate Sodium ([place]-Colace) 1 tab BID PO 08/29/17 21:00 09/23/17 08:49 Albuterol Sulfate (Proair Hfa Inh) 2 puff Q6H PRN INH SHORTNESS OF BREATH 08/29/17 18:00 09/13/17 11:05 Budesonide/ Formoterol Fumarate (Symbicort 160-4.5 Mcg Inh) 2 puff BID INH 08/29/17 21:00 09/23/17 09:05 Morphine Sulfate (Morphine Inj) 2 mg Q4H PRN IV PUSH BREAKTHROUGH PAIN 09/01/17 16:00 09/17/17 23:07 Sodium Chloride (NS Flush) DAILY IVF 09/05/17 09:00 09/22/17 09:00 Heparin Sodium (Porcine) (Heparin Central Flush) DAILY IV FLUSH 09/05/17 09:00 09/21/17 09:00 Sodium Chloride (NS Flush) UNSCH PRN IVF SEE PROTOCOL 09/04/17 16:00 09/10/17 21:58 Sodium Chloride (NS Flush) UNSCH PRN IVF SEE PROTOCOL 09/04/17 16:00 09/10/17 21:59 Aztreonam 1000 mg/ Sodium Chloride 100 ml @ 200 mls/hr Q8H IV 09/06/17 12:00 09/23/17 04:19 Filgrastim 480 mcg/Dextrose 51.6 ml @ 100 mls/hr DAILY@14 IV 09/11/17 21:00 09/22/17 13:46 Zinc Oxide (Desitin 40% Oint) 1 applic UNSCH PRN TOPICAL DIAPER RASH 09/12/17 09:30 09/13/17 18:07 Nystatin (Mycostatin Powder) 1 applic Q8HR TOPICAL 09/12/17 09:30 09/23/17 04:29 Lorazepam (Ativan) 0.5 mg Q6H PRN PO anxiety/ sleep 09/13/17 17:30 09/21/17 09:54 Multi-Ingredient Mouthwash/Gargle (Magic Mouthwash Adult Liq) 10 ml QID SWISH-SPIT 09/15/17 13:00 09/22/17 12:34 Oxycodone HCl (Roxicodone) 5 mg Q4H PRN PO pain 2-5 09/16/17 11:45 09/21/17 02:08 Oxycodone HCl (Roxicodone) 10 mg Q4H PRN PO pain 6-10 09/16/17 11:45 09/22/17 21:40 Furosemide (Lasix Inj) 40 mg DAILY@0900,1800 IV PUSH 09/18/17 18:00 Future hold 09/23/17 08:50 Albumin Human 100 ml @ 60 mls/hr Q12H IV 09/18/17 09:30 09/23/17 08:48 Temazepam (Restoril) 15 mg HS PRN PO insomnia 09/19/17 10:15 09/22/17 21:40 Sucralfate (Carafate Liq) 1 gm ACHS PO 09/20/17 12:00 09/23/17 08:50 Multivitamins (Theragran) 1 tab DAILY PO 09/21/17 18:00 09/23/17 08:51 Calcium Carbonate (Oscal) 500 mg DAILY PO 09/21/17 18:00 09/23/17 08:49 Famciclovir (Famvir) 500 mg Q8HR PO 09/21/17 22:00 09/23/17 04:28 Magnesium Oxide (Mag-Ox) 400 mg Q12HR PO 09/22/17 09:45 09/23/17 08:49 Spironolactone (Aldactone) 25 mg BID PO 09/22/17 21:00 09/23/17 08:49 Objective Remarks GENERAL: elderly male, sitting up in bed in [facility]. SKIN: Warm and dry. HEAD: Normocephalic. EYES: No injection or drainage. NECK: Supple, trachea midline. CARDIOVASCULAR: Regular rate and rhythm RESPIRATORY: Breath sounds equal bilaterally. No accessory muscle use. GASTROINTESTINAL: Abdomen soft, non-tender, nondistended. EXTREMITIES: No cyanosis. edema in legs improving. NEUROLOGICAL: awake and alert. no focal deficit. 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 CT C/A/P showing no LAD Discussed w/ oncologist in [facility]'s home town coordination of treatment when he leaves here. He has flight schedule 10/09/17. agreed to assume care, plan to fax records, appt to be made for the Sunday after his return home. 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 09/04: PICC line placement today, start R-EPOCH, give IT MTX. 09/05: Rituxan infusion complete. patient in TLS. transferred to ICU. forest ecologist consulted. 09/06: start EPOCH, window closing as patient is now leukopenic. give blood and platelets. 09/07: give D2 EPOCH. give 1 unit pRBC, check repeat H/H. 09/08: give D3 EPOCH. 1 unit pRBC, 1 unit platelets. 09/09: D4 EPOCH, 2 units platelets. 09/10: D5--finish 4th bag of EPOCH, give Cytoxan this evening. 09/13/17: Continue G-CSF support 09/14/17: Transfuse 2 units packed red blood cells, 1 unit platelets 09/17/17: continue Neupogen. give 1 unit prbc 1 unit platelets. 09/18/17: start wound care instructions. 1 unit pRBC, 1 unit platelets. 09/20: edema improving. continue to replace potassium aggressively with diuresis. 09/21: WBC starting to recover. will plan to consult patient's neurosurgeon to ask them to place Ommaya reservoir when counts closer to recovery. 09/22: WBC continuing to recover. will give blood and platelets today. (2) Anasarca ICD Codes: R60.1 - Generalized edema Plan: --nephrology following. --receiving Lasix IV + Albumin infusions. (3) Skin breakdown ICD Codes: L90.9 - Atrophic disorder of skin, unspecified Plan: --appreciate wound care assistance. improving. --Daly mattress started BID and PRN to Left Buttock 1. [place] Cavilon skin barrier film on purple non blanching pressure injury after gently cleansing 2. Apply Calazime skin protectant paste and leave open to air 3. Use ONLY disposable under pads for moisture (NO THICK COTTON UNDERPADS/DRAW SHEETS) *Reposition patient from left to right sides only. Limit time spent on back for therapies only* (4) Hypokalemia ICD Codes: E87.6 - Hypokalemia Plan: --due to diuresis. --continue to replace. (5) Hyperbilirubinemia ICD Codes: E80.6 - Other disorders of bilirubin metabolism Plan: --improving, was likely medication effect Assessment 72y/o male with new diagnosis of Burkitt's lymphoma in the bone marrow given R- EPOCH chemo Plan 1. give 1 unit platelets, 1 unit pRBC 2. continue diuresis with Lasix, Aldactone 3. consult neurosurgery tomorrow for Ommaya reservoir placement Attending Statement The exam, history, and the medical decision-making described in the above note were completed with the assistance of the mid-level provider. I reviewed and agree with the findings presented. I attest that I had a [id number] encounter with the patient on the same day, and personally performed and documented my assessment and findings in the medical record. Patient feels better. He was able to get up and walk in the hallway without having any problems. is at bedside. They are hoping that he will be going home soon. WBC is coming up. PRBC today Platelet transfusion today Continue to monitor CBC. Dr. Duron to follow tomorrow Laurita Davila September 23, 2017 09:20 Toni Pablo MD September 23, 2017 17:03
[2017-09-23 10:51] LABS: BANDS 13 % (0-6); BASOPHILS 3 % (0-2); CORRECTED NUCLEATED RBC 2 /100 WBC (0-0); LYMPHOCYTES 11 % (9-44); METAMYELOCYTES 5 % (0-1); MONOCYTES 7 % (0-8); NEUTROPHIL # MANUAL DIFF 1.8 TH/MM3 (1.8-7.7); NUCLEATED RED BLOOD CELL 2 (0-0); POLYS (SEG NEUTROPHILS) 60 % (16-70); PROMYELOCYTES 1 % (0-0)
[2017-09-23 10:52] LABS: DOHLE BODIES PRESENT (NONE SEEN); TOXIC GRANULATION 3+ (NORMAL)
--- NOTE | 2017-09-23 12:02 | HHI.GIFU ---
Subjective Remarks Pt resting in bed Denies any GI complaints at this time including nausea, vomiting, abdominal pain States normal BMs (Sandra Sin) Objective Vitals I&O Vital Signs Date Time Temp Pulse Resp B/P (MAP) Pulse Ox O2 Delivery O2 Flow Rate FiO2 09/23/17 11:37 98.1 77 20 125/72 95 09/23/17 11:17 98.2 82 18 123/70 94 09/23/17 08:45 Room Air 09/23/17 08:06 98.7 87 18 143/77 (99) 93 09/23/17 04:25 98.9 88 20 141/75 (97) 93 09/23/17 03:01 82 09/23/17 00:04 97 09/23/17 00:00 99.0 94 20 125/67 (86) 92 09/22/17 22:40 16 09/22/17 20:55 95 Nasal Cannula 2.00 09/22/17 20:45 Room Air 09/22/17 20:42 97.7 87 15 134/76 (95) 93 09/22/17 20:05 90 09/22/17 15:52 98.0 80 20 140/77 94 09/22/17 15:16 98.0 81 20 144/79 94 09/22/17 11:50 99.3 87 20 152/77 94 I/O 09/22/17 09/22/17 09/22/17 09/23/17 09/23/17 09/23/17 07:00 15:00 23:00 07:00 15:00 23:00 Intake Total 680 ml 216 ml 400 ml 720 ml Output Total 1300 ml 1025 ml 2750 ml 1450 ml 1250 ml Balance -620 ml -809 ml -2350 ml -730 ml -1250 ml Intake Oral 480 ml 720 ml IV Total 200 ml Packed Cells 400 ml Platelets 216 ml Output Urine Total 1300 ml 1025 ml 2750 ml 1450 ml 1250 ml Bladder Scan Volume Amount 12 ml # Bowel Movements 1 Laboratory Laboratory Tests Test 09/23/17 06:10 White Blood Count 2.3 Red Blood Count 2.27 Hemoglobin 6.7 Hematocrit 19.6 Mean Corpuscular Volume 86.3 Mean Corpuscular Hemoglobin 29.5 Mean Corpuscular Hemoglobin Concent 34.2 Red Cell Distribution Width 14.6 Platelet Count 11 Mean Platelet Volume 8.2 CBC Comment AUTO DIFF Differential Total Cells Counted 100 Neutrophils % (Manual) 60 Band Neutrophils % 13 Lymphocytes % 11 Monocytes % 7 Basophils % 3 Neutrophils # (Manual) 1.8 Metamyelocytes 5 Promyelocytes 1 Nucleated Red Blood Cells 2 Differential Comment FINAL DIFF MANUAL Toxic Granulation 3+ Dohle Bodies PRESENT Platelet Estimate RARE Platelet Morphology Comment NORMAL Blood Urea Nitrogen 38 Creatinine 1.04 Random Glucose 145 Total Protein 4.8 Albumin 2.6 Calcium Level 7.7 Phosphorus Level 1.2 Magnesium Level 1.6 Alkaline Phosphatase 137 Aspartate Amino Transf (AST/SGOT) 18 Alanine Aminotransferase (ALT/SGPT) 42 Total Bilirubin 2.3 Direct Bilirubin 1.2 Sodium Level 149 Potassium Level 3.1 Chloride Level 108 Carbon Dioxide Level 34.1 Anion Gap 7 Estimat Glomerular Filtration Rate 70 Indirect Bilirubin 1.1 Date/Time Source Procedure Growth Status 09/08/17 13:20 Blood Peripheral Aerobic Blood Culture - Final NO GROWTH IN 5 DAYS Complete 09/08/17 13:20 Blood Peripheral Anaerobic Blood Culture - Final NO GROWTH IN 5 DAYS Complete Imaging Last Impressions Liver Ultrasound 09/20/17 0000 Signed Impressions: Service Date/Time: September 16:29 - CONCLUSION: 1. Cholecystectomy. 2. Complex cyst right kidney measures 4.4 cm. 3. Splenomegaly. Srikanth Ambrosio MD Chest X-Ray 09/05/17 0000 Signed Impressions: Service Date/Time: Tuesday, September 05, 2017 01:50 - CONCLUSION: 1. Right PICC line in superior vena cava. Subsegmental basilar airspace disease. No effusion or pneumothorax. Cory Camarena MD PICC Line Insertion 09/04/17 0600 Signed Impressions: Service Date/Time: Monday, September 04, 2017 15:12 - CONCLUSION: 1. Uncomplicated central venous Power PICC line placement. 2. The PICC line can be used immediately. Santy Burciaga Jr., MD Lumbar Puncture Fluoroscopy 09/04/17 0000 Signed Impressions: Service Date/Time: Monday, September 04, 2017 15:12 - CONCLUSION: Uncomplicated fluoroscopically guided lumbar puncture with pressures as above. Intrathecal methotrexate was administered. Santy Burciaga Jr., MD Chest CT 09/01/17 0000 Signed Impressions: Service Date/Time: Friday, September 01, 2017 16:48 - CONCLUSION: 1. No definite evidence for metastatic disease to the thorax. 2. 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 3. Scattered atelectasis and scarring in the lungs. 4. Moderate coronary calcifications. Cory Camarena MD Abdomen/Pelvis CT 09/01/17 0000 Signed Impressions: Service Date/Time: Friday, September 01, 2017 16:48 - CONCLUSION: 1. Post surgical changes with findings of cholecystectomy and prostatectomy. 2. Scattered diverticular disease of the colon without diverticulitis. 3. Lobulated cyst in the upper poles of both kidneys with some calcification on the left. 4. Retroperitoneal fat herniates through the left hemidiaphragm into the posterior left lung base. 5. No acute intraperitoneal or pelvic process to explain current clinical symptoms Gavin Lynn MD Bone Biopsy CT 08/30/17 1535 Signed Impressions: Service Date/Time: August 16:19 - CONCLUSION: 1. Uncomplicated CT guided bone marrow aspirate. 2. Uncomplicated CT guided bone marrow biopsy. Srikanth Ambrosio MD Thoracic Spine CT 08/30/1799 Signed Impressions: Service Date/Time: August 01:37 - CONCLUSION: 1. No fracture, subluxation or other acute abnormality of the thoracic spine. 2. Scoliosis and mild multifocal degenerative changes as above. 3. Complex appearing cystic structures of the upper poles of both kidneys. Comparison to any previous outside facility studies is recommended to confirm chronicity and stability. Contrast enhanced study of the abdomen suggested if felt clinically indicated, preferably MRI if there are no contraindications. Tim Jones MD Lumbar Spine CT 08/30/1799 Signed Impressions: Service Date/Time: August 01:37 - CONCLUSION: 1. No acute fracture or acute subluxation of the lumbar spine. 2. 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 3. Mild spinal and bilateral foraminal stenosis at L4/L5. 4. Mild right and moderate left foraminal stenosis at L5/S1. 5. Benign vertebral body hemangioma of L1. No concerning lumbar spine bone lesion. Tim Jones MD Head CT 08/30/1799 Signed Impressions: Service Date/Time: August 01:37 - CONCLUSION: Small frontal maddy-falcine subdural blood is unchanged. Tim Jones MD Carotid Artery Ultrasound 08/30/17 0000 Signed Impressions: Service Date/Time: August 07:52 - CONCLUSION: 1. Diffuse calcified plaque throughout carotid arteries bilaterally with resultant moderate, 50-69%%, stenosis of the internal carotid arteries bilaterally and likely moderate stenosis of the left common carotid artery. 2. Antegrade vertebral artery flow bilaterally. Lopez Taylor MD Brain MRI 08/30/17 0000 Signed Impressions: Service Date/Time: August 09:27 - CONCLUSION: 1. Right frontal parafalcine abnormality on CT exam corresponds to a small meningioma. No definitive intra-or extra-axial hemorrhage. Lopez Taylor MD Physical Exam HEENT: Normocephalic; atraumatic (+) icterus CHEST: Even/unlabored CARDIAC: RRR ABDOMEN: Round, soft, nontender, bowel sounds active EXTREMITIES: BLE edema [employer]: No focal deficits; alert and oriented times three. (Sandra Sin) Assessment and Plan Plan Assessment: - Anemia- normocytic- on admission H/H was 7.8/23.2 S/P 2 U PRBCs currently 8.6/ 24.3 Pt does report one dark stool, had taken Pepto-Bismol prior. Emesis on day of admission. with similar symptoms and diarrhea, after they both ate [employer] grill. Hematology following- bone marrow biopsy done yesterday- results pending. Abs retic-15 Retic count-0.7 Haptoglobin-129 [id number] Pt reports last EGD and colonoscopy done 2 years ago Bone marrow biopsy revealed Burkitts lymphoma- oncology following - Thrombocytopenia - platelets 5 on admission, now S/P 3 U platelets currently 48 - History of LA S/P stent placement x 2 in 2003- only on ASA at home- previously on Plavix. - Abnormal imaging- MRI brain --> Right frontal parafalcine abnormality on CT exam corresponds to a small meningioma. No definitive intro or extra-axial hemorrhage. Pt with complaints of dizziness on arrival RECONSULT for hyperbilirubinemia T bili has been mildly elevated but noted to be 4.4 yesterday Fractionated: Direct bilirubin-2.8 Indirect-1.6 Elevation in AST and Alk phos also noted US liver (09/20) --> Cholecystectomy. Complex cyst right kidney measures 4.4 cm. Splenomegaly. (09/23) T bili trending down, LFTs WNL, alk phos trending down. Pt with no GI complaints at this time. Pt receiving daily platelets and PRBCs per oncology. Elevation in T bili is likely multifactorial hemolysis, chemotherapy treatment, possible cholestasis secondary to medication Plan Continue to monitor LFTs Hyperbilirubinemia likely multifactorial Liver VAUGHN to rule out other causes Consider Actigall if not improving Symptomatic care Further recommendations based on clinical course Patient has been seen and examined by myself and Dr. Nobles and this note is written on his behalf (Sandra Sin) Physician Comments Seen and examined with ROLAN, liver vaughn in progress. LFTs improving. (Teja Nobles MD) Sandra Sin September 23, 2017 12:02 Teja Nobles MD September 23, 2017 21:15
[2017-09-23] MEDS: LIDOCAINE VISCOUS 2% SOLN 15 ML UDC SWISH-SPIT PRN ×2 (12:12→16:19)
--- NOTE | 2017-09-23 13:23 | HHI.NPPN ---
Subjective General Problems: Edema Renal Failure: Acute History of Present Illness Patient is a 72 year old male with a past medical history of prostate cancer, asthma, gastroesophageal reflux, Muñoz's esophagus,hypertension, new anemia, new thrombocytopenia, rotator cuff injury, and back pain. 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 Patient was receiving Rituxan last night and developed a reaction with low grade temperature, pain, and tremor. Plan to transfer patient to intensive care unit as patient is at risk for fluid overload with blood transfusions and acute kidney injury. Nephrology is consulted for acute kidney injury with creatinine of 2.44 with a admission creatinine of 0.99. HGB is low at 7.2, Plt of 27, NA 148, CO2 14.5. Patient is resting comfortably now with his only complaint is that is dizzy with ambulation. Additional Remarks Patient is alert, clinically same, started eating some. Review of Systems Respiratory Respiratory Remarks Denies any SOB Cardiovascular Cardiac: Edema Cardiac Remarks Denies any CP Gastrointestinal GI Remarks Denies any abdominal pain Objective Data Data 09/23/17 09/24/17 19:00 07:00 Intake Total 260 ml Output Total 1250 ml Balance -990 ml Platelets 260 ml Output Urine Total 1250 ml Vital Signs Date Time Temp Pulse Resp B/P (MAP) Pulse Ox O2 Delivery O2 Flow Rate FiO2 09/23/17 12:28 98.0 77 20 144/74 94 09/23/17 11:37 98.1 77 20 125/72 95 09/23/17 11:17 98.2 82 18 123/70 94 09/23/17 08:45 Room Air 09/23/17 08:06 98.7 87 18 143/77 (99) 93 09/23/17 04:25 98.9 88 20 141/75 (97) 93 09/23/17 03:01 82 09/23/17 00:04 97 09/23/17 00:00 99.0 94 20 125/67 (86) 92 09/22/17 22:40 16 09/22/17 20:55 95 Nasal Cannula 2.00 09/22/17 20:45 Room Air 09/22/17 20:42 97.7 87 15 134/76 (95) 93 09/22/17 20:05 90 09/22/17 15:52 98.0 80 20 140/77 94 09/22/17 15:16 98.0 81 20 144/79 94 -: 09/23/17 0610 09/23/17 0610 Physical Exam General Appearance: No Acute Distress, Comfortable, Anxious Throat Throat Exam: Oral Mucosa [place] & Moist Pulmonary Resp Exam: Breath Sounds Equal, No Distress Cardiology CV Exam: Regular, Normal Sinus Rhythm Gastrointestinal/Abdomen GI Exam: Soft, Non-Tender, Distended Genitourinary Exam: Flank Non-Tender Integumentary Skin Exam: Clear, Warm Extremeties Extremities Exam: Moderate Edema, Pitting Edema, Dependent Edema Neurologic Neuro Exam: Alert, Awake, Oriented Psychiatric Psych Exam: Appropriate Responses Assessment/Plan Electrolyte Assessment: Hypernatremia, Hypokalemia Problem List: (1) Acute kidney injury ICD Codes: N17.9 - Acute kidney failure, unspecified Plan: Acute kidney injury with creatinine of 2.44 when consulted. Acute kidney injury most likely related to tumor lysis. On admission creatinine of 0.99. CT of abdomen on the with kidney with normal in size and shape. There is no mass, stone or hydronephrosis. Lobulated cysts in the upper poles of both kidneys with some benign-appearing calcification on the left Creatinine stable Plan Will monitor renal panel periodically Avoid nephrotoxins. Encouraged to elevate legs throughout day Continue Lasix increase to 40 mg BID and albumin Creatinine is stable at 1.1, K is 3.1 on Lasix and Aldactone. Urine K is 27, which is high with low serum K. On Aldactone to BID. (2) B-cell lymphoma ICD Codes: C85.10 - Unspecified B-cell lymphoma, unspecified site Status: Acute Plan: Oncology managing (3) Anemia ICD Codes: D64.9 - Anemia, unspecified Status: Acute Plan: Monitoring Transfusion today. Problem Qualifiers (1) Anemia: Qualified Codes: D64.9 - Anemia, unspecified Demi Mendez MD September 23, 2017 13:23
[2017-09-23] MEDS: FILGRASTIM INJ 480 MCG in DEXTROSE 5% IN WATER INJ 50 ML IV SCH ×2 (14:06)
[2017-09-23] MEDS: SODIUM CHLORIDE 0.9% FLUSH 10 ML FLUSH IVF SCH (14:07)
[2017-09-23 14:57] LABS: IRON (FE) 52 MCG/DL (65-175); TOTAL IRON BINDING CAPACITY 111 MCG/DL (250-450)
[2017-09-23 15:00] LABS: FERRITIN 1633 NG/ML (26-388)
--- NOTE | 2017-09-23 15:18 | HHI.PR ---
Subjective Remarks Patient says he is feeling well. Denies any chest pain or shortness breath. Denies nausea or vomiting. He feels that bilateral lower extremity edema is improving slightly today. Objective Vital Signs Date Time Temp Pulse Resp B/P (MAP) Pulse Ox O2 Delivery O2 Flow Rate FiO2 09/23/17 13:00 97.6 85 20 145/78 95 09/23/17 12:28 98.0 77 20 144/74 94 09/23/17 11:37 98.1 77 20 125/72 95 09/23/17 11:17 98.2 82 18 123/70 94 09/23/17 08:45 Room Air 09/23/17 08:06 98.7 87 18 143/77 (99) 93 09/23/17 04:25 98.9 88 20 141/75 (97) 93 09/23/17 03:01 82 09/23/17 00:04 97 09/23/17 00:00 99.0 94 20 125/67 (86) 92 09/22/17 22:40 16 09/22/17 20:55 95 Nasal Cannula 2.00 09/22/17 20:45 Room Air 09/22/17 20:42 97.7 87 15 134/76 (95) 93 09/22/17 20:05 90 09/22/17 15:52 98.0 80 20 140/77 94 09/22/17 15:16 98.0 81 20 144/79 94 I/O 09/22/17 09/22/17 09/22/17 09/23/17 09/23/17 09/23/17 07:00 15:00 23:00 07:00 15:00 23:00 Intake Total 680 ml 216 ml 400 ml 720 ml 260 ml Output Total 1300 ml 1025 ml 2750 ml 1450 ml 1250 ml Balance -620 ml -809 ml -2350 ml -730 ml -990 ml Intake Oral 480 ml 720 ml IV Total 200 ml Packed Cells 400 ml Platelets 216 ml 260 ml Output Urine Total 1300 ml 1025 ml 2750 ml 1450 ml 1250 ml Bladder Scan Volume Amount 12 ml # Bowel Movements 1 Result Diagram: 09/23/17 0610 09/23/17 0610 Objective Remarks GENERAL: Patient sitting up in chair. Appears comfortable. SKIN: Warm and dry. HEAD: Normocephalic. EYES: No scleral icterus. No injection or drainage. NECK: Supple, trachea midline. No JVD. CARDIOVASCULAR: Regular rate and rhythm without murmurs, gallops, or rubs. RESPIRATORY: Breath sounds equal bilaterally. No accessory muscle use. GASTROINTESTINAL: Abdomen soft, non-tender, nondistended. MUSCULOSKELETAL: No cyanosis. 3+ edema bilateral lower extremities, improved again today. No blistering or broken skin. BACK: Nontender without obvious deformity. No CVA tenderness. A/P Assessment and Plan === 09/23/17 //Hypokalemia. 3.1. Slightly improved. Replace. //Hypophosphatemia. 1.2. Replace IV again //Hypernatremia. Sodium 149. Start hypotonic fluids. Recheck tomorrow. //Anasarca. Continue scheduled albumin. Continue Jensen for monitoring output. Continue scheduled albumin. Minimize fluids. //Anemia 6.7. Transfusion as needed by oncology. Appreciate assistance. //Transaminitis. Hyperbilirubinemia. = Hyperpharynx anemia. Appreciate GI assistance. LFTs improving slightly. //Thrombocytopenia platelets of 11. No signs of bleeding regimen as per hematology. //Oral irritation. Improved with lidocaine as needed. 72y/o male with anemia + thrombocytopenia. History of prostate cancer, status post prostatectomy, coronary artery disease, s/p stent placement. 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 //Septic shock - resolved //E coli and strep viridans bacteremia - repeat blood cx are negative to date. Etiology of E coli in blood - No evidence of a UTI based on symptoms. ID consulted for further recommendation. Continue IV aztreonam for now.Echocardiogram shows an EF of 55-60% with moderate concentric left ventricular hypertrophy. No vegetation reported. //Tumor lysis syndrome - Resolved. Allopurinol on hold. Monitor closely. //Hyperkalemia now hypokalemia and hypocalcemia.-Continue to replace. Monitor closely. //LUCA/hypernatremia- creatinine trending down, good urine output. Continue half normal saline due to hypernatremia. Monitor BMPs every 6 hours. Cautioned to not overcorrect quickly sodium levels. Encourage p.o. hydration ( 250ml water q4-6hrs while awake). Nephrology following, appreciate recs. Pt has been started on diuril. Monitor Cr closely. //Metabolic acidosis - improved //Pancytopenia - requiring multiple transfusions ( ~daily). Transfusion and G -CSF per oncology. Transfuse 1 unit packed red blood cells and 1U PLT today 09/20/17 Transfuse to keep platelets greater than 10,000, hemoglobin greater than 7.5 Continue Neupogen //Burkitt's lymphoma receiving chemo. Management per hematology //History of prostate cancer status post XRT //Diarrhea - seems to have resolved, monitor. //Oral thrush/ mucositis give magic wash, //Scrotal edema/excoriations slight improved. Give lasix 20 mg IV scheduled and albumin IV. Monitor UOP. , monitor closely kidney function. Replenish electrolytes. Consult wound care, discussed with Edith mahoney wound care and with the nurse . Recommendation sfor wound care. Scrotal tears noted, pt having pain with urination due to urine touching those open tears and burning. Dr. Duron doesn't recommend placing a jensen as he is at high risk for bleeding due to his low plt count and also high risk for infection due to his neutropenia. Desitin cream and lidocaine jelly to be applied. Keep pt dry as much as possible. Place a condom catheter, will do but at this time, edema is too much and this cannot be done. Nystatin powder also ordered Patient however with significant scrotal edema and pain, has a Jensen placed with orange urine, fairly good OP. //Insomnia: Add temazepam Discharge Planning Continue to replace electrolytes Transfusing to keep hemoglobin and platelets within acceptable limits CM assisting with DC planning as family wishes to pursue care in [place] has a plane ticket for 09/22/17 Discussed with oncology today. Krunal Downs MD September 23, 2017 15:18
[2017-09-23] MEDS ORDERED: POTASSIUM PHOSPHATE INJ 30 MMOL in SODIUM CHLOR 0.9% 250 ML INJ 250 ML IV ONE (17:00)
[2017-09-23] MEDS: D5W + KCL 20 MEQ INJ 1,000 ML IV SCH (21:57)
[2017-09-23] MEDS: TEMAZEPAM 15 MG CAP PO PRN (23:42)
[2017-09-24] VITALS (12 sets, daily range): BP systolic 130–192; BP diastolic 63–99; PULSE 67–87; RESP 16–18; TEMP 97.3–98.5; O2SAT 92–94
[2017-09-24] MEDS: CHLORHEXIDINE GLUCONATE 2 % 1 PACK (2 CLOTHS) TOP SCH (04:00)
[2017-09-24] MEDS: AZTREONAM INJ 1,000 MG in SODIUM CHLORIDE 0.9% INJ 100 ML IV SCH (04:53)
[2017-09-24] MEDS: NYSTATIN 100,000 U/GM PWD 15 GM BTL TOPICAL SCH ×3 (04:53→20:34)
[2017-09-24] MEDS: FAMCICLOVIR 500 MG TAB PO SCH ×3 (04:53→20:34)
[2017-09-24 05:17] LABS: AUTOMATED NEUTROPHIL # 4.4 TH/MM3 (1.8-7.7); BASOPHIL % 0.3 % (0.0-2.0); EOSINOPHIL % 0.1 % (0.0-4.0); HEMOGLOBIN 7.1 GM/DL (13.0-17.0); LYMPH % 4.1 % (9.0-44.0); LYMPHOCYTE # 0.2 TH/MM3 (1.0-4.8); MEAN CELL VOLUME 86.2 FL (80.0-100.0); MEAN CORPUSCULAR HEMOGLOBIN 29.7 PG (27.0-34.0); MEAN CORPUSCULAR HGB CONC 34.4 % (32.0-36.0); MEAN PLATELET VOLUME 8.2 FL (7.0-11.0); MONO % 5.3 % (0.0-8.0); MONOCYTE # 0.3 TH/MM3 (0-0.9); NEUT % 90.2 % (16.0-70.0); RED CELL DISTRIBUTION WIDTH 14.5 % (11.6-17.2); WHITE BLOOD COUNT 4.9 TH/MM3 (4.0-11.0)
[2017-09-24 05:42] LABS: HEMATOCRIT 20.7 % (39.0-51.0); PLATELET COUNT 19 TH/MM3 (150-450)
[2017-09-24 05:52] LABS: ALBUMIN 2.8 GM/DL (3.4-5.0); BICARBONATE 32.5 MEQ/L (21.0-32.0); CALCIUM 7.4 MG/DL (8.5-10.1); DIRECT BILIRUBIN ADULT 1.3 MG/DL (0.0-0.2); INDIRECT BILIRUBIN 1.5 MG/DL (0.0-0.8); PHOSPHORUS 2.1 MG/DL (2.5-4.9); TOTAL BILIRUBIN ADULT 2.8 MG/DL (0.2-1.0)
[2017-09-24 07:32] LABS: BANDS 20 % (0-6); CORRECTED NUCLEATED RBC 2 /100 WBC (0-0); LYMPHOCYTES 4 % (9-44); METAMYELOCYTES 1 % (0-1); MONOCYTES 5 % (0-8); NEUTROPHIL # MANUAL DIFF 4.5 TH/MM3 (1.8-7.7); NUCLEATED RED BLOOD CELL 2 (0-0); POLYS (SEG NEUTROPHILS) 70 % (16-70)
[2017-09-24 07:33] LABS: TOXIC GRANULATION 1+ (NORMAL)
[2017-09-24 07:35] LABS: CALCIUM-PROTEIN CORRECTED 8.5 MG/DL (8.5-10.1); TOTAL PROTEIN 5.1 GM/DL (6.4-8.2)
[2017-09-24] MEDS: SODIUM CHLORIDE 0.9% FLUSH 10 ML FLUSH IVF SCH (09:00)
[2017-09-24] MEDS: ONDANSETRON HCL 4 MG/2 ML VIAL IV PUSH PRN (09:14)
[2017-09-24] MEDS: MAGNESIUM OXIDE 400 MG TAB PO SCH ×2 (09:15→20:34)
[2017-09-24] MEDS: NYSTAT/DIPHENHY/LIDO MOUTHWASH (Adult) 120ML SWISH-SPIT SCH ×4 (09:15→20:44)
[2017-09-24] MEDS: MULTIVITAMIN TAB PO SCH (09:15)
[2017-09-24] MEDS: DOCUSATE SODIUM 50 MG/SENNA 8.6 MG TAB PO SCH ×2 (09:15→20:43)
[2017-09-24] MEDS: PANTOPRAZOLE SODIUM 40 MG VIAL IV PUSH SCH (09:15)
[2017-09-24] MEDS: ALBUMIN 25% INJ 100 ML IV SCH ×2 (09:15→20:33)
[2017-09-24] MEDS: SPIRONOLACTONE 25 MG TAB PO SCH ×2 (09:15→20:34)
[2017-09-24] MEDS: CALCIUM CARBONATE 1.25 GM (CA 500 MG) TAB PO SCH (09:15)
[2017-09-24] MEDS: BUDESONIDE-FORMOTEROL 160/4.5 MCG INHALER INH SCH ×2 (09:16→20:35)
[2017-09-24] MEDS: SODIUM CHLORIDE 0.9% FLUSH 10 ML FLUSH IV FLUSH SCH ×2 (09:16→20:34)
[2017-09-24] MEDS: LIDOCAINE VISCOUS 2% SOLN 15 ML UDC SWISH-SPIT PRN ×2 (09:16→13:58)
[2017-09-24] MEDS: FUROSEMIDE 20 MG/2 ML VIAL IV PUSH SCH ×2 (09:35→19:05)
--- NOTE | 2017-09-24 10:22 | PD.ONC.PN ---
Subjective Subjective Remarks Afebrile overnight Patient looking forward to walking with physical therapy again today Reports the scrotal edema is much improved Objective Data Date Time Temp Pulse Resp B/P (MAP) Pulse Ox O2 Delivery O2 Flow Rate FiO2 09/24/17 09:06 98.5 79 18 138/77 (97) 92 09/24/17 08:00 73 09/24/17 04:47 97.4 67 18 134/72 (92) 93 09/24/17 04:05 75 09/24/17 00:42 16 09/24/17 00:00 98.5 87 18 138/64 (88) 93 09/23/17 23:03 79 09/23/17 20:50 98.3 79 18 147/72 (97) 93 09/23/17 20:50 Room Air 09/23/17 20:03 88 09/23/17 19:20 95 Nasal Cannula 2.00 09/23/17 16:00 98.0 85 20 153/84 (107) 94 09/23/17 13:00 97.6 85 20 145/78 95 09/23/17 12:28 98.0 77 20 144/74 94 09/23/17 11:37 98.1 77 20 125/72 95 09/23/17 11:17 98.2 82 18 123/70 94 09/24/17 09/24/17 09/24/17 07:00 15:00 23:00 Intake Total 480 ml Output Total 2250 ml Balance -1770 ml Result Diagram: 09/24/17 0500 09/24/17 0500 Laboratory Results Laboratory Tests Test 09/23/17 14:20 09/24/17 05:00 Iron Level 52 MCG/DL Total Iron Binding Capacity 111 MCG/DL Percent Iron Saturation 47.0 % Ferritin 1633 NG/ML White Blood Count 4.9 TH/MM3 Red Blood Count 2.40 MIL/MM3 Hemoglobin 7.1 GM/DL Hematocrit 20.7 % Mean Corpuscular Volume 86.2 FL Mean Corpuscular Hemoglobin 29.7 PG Mean Corpuscular Hemoglobin Concent 34.4 % Red Cell Distribution Width 14.5 % Platelet Count 19 TH/MM3 Mean Platelet Volume 8.2 FL Neutrophils (%) (Auto) 90.2 % Lymphocytes (%) (Auto) 4.1 % Monocytes (%) (Auto) 5.3 % Eosinophils (%) (Auto) 0.1 % Basophils (%) (Auto) 0.3 % Neutrophils # (Auto) 4.4 TH/MM3 Lymphocytes # (Auto) 0.2 TH/MM3 Monocytes # (Auto) 0.3 TH/MM3 Eosinophils # (Auto) 0.0 TH/MM3 Basophils # (Auto) 0.0 TH/MM3 CBC Comment AUTO DIFF Differential Total Cells Counted 100 Neutrophils % (Manual) 70 % Band Neutrophils % 20 % Lymphocytes % 4 % Monocytes % 5 % Neutrophils # (Manual) 4.5 TH/MM3 Metamyelocytes 1 % Nucleated Red Blood Cells 2 /100 WBC Differential Comment FINAL DIFF MANUAL Toxic Granulation 1+ Platelet Estimate LOW Platelet Morphology Comment NORMAL Blood Urea Nitrogen 32 MG/DL Creatinine 1.00 MG/DL Random Glucose 125 MG/DL Total Protein 5.1 GM/DL Albumin 2.8 GM/DL Calcium Level 7.4 MG/DL Phosphorus Level 2.1 MG/DL Alkaline Phosphatase 133 U/L Aspartate Amino Transf (AST/SGOT) 19 U/L Alanine Aminotransferase (ALT/SGPT) 39 U/L Total Bilirubin 2.8 MG/DL Direct Bilirubin 1.3 MG/DL Sodium Level 148 MEQ/L Potassium Level 3.0 MEQ/L Chloride Level 107 MEQ/L Carbon Dioxide Level 32.5 MEQ/L Anion Gap 9 MEQ/L Estimat Glomerular Filtration Rate 73 ML/MIN Protein Corrected Calcium 8.5 MG/DL Indirect Bilirubin 1.5 MG/DL Administered Medications Medications (Trade) Dose Ordered Sig/Robert Route PRN Reason Start Time Stop Time Status Last Admin Dose Admin Sodium Chloride (NS Flush) 2 ml UNSCH PRN IV FLUSH FLUSH AFTER USING IV ACCESS 08/29/17 15:45 09/08/17 23:42 Sodium Chloride (NS Flush) 2 ml BID IV FLUSH 08/29/17 21:00 09/24/17 09:16 Pantoprazole Sodium (Protonix Inj) 40 mg DAILY IV PUSH 08/30/17 09:00 09/24/17 09:15 Ondansetron HCl (Zofran Inj) 4 mg Q6H PRN IV PUSH NAUSEA OR VOMITING 08/29/17 16:00 09/24/17 09:14 Albuterol/ Ipratropium (Duoneb Neb) 1 ampule Q2HR NEB PRN INH WHEEZING 08/29/17 16:00 09/04/17 23:32 Chlorhexidine Gluconate (Chlorhexidine 2% Cloth) Taper DAILY@04 TOP 08/30/17 04:00 08/26/18 03:59 09/13/17 05:13 Senna/Docusate Sodium (Madina-Colace) 1 tab BID PO 08/29/17 21:00 09/24/17 09:15 Albuterol Sulfate (Proair Hfa Inh) 2 puff Q6H PRN INH SHORTNESS OF BREATH 08/29/17 18:00 09/13/17 11:05 Budesonide/ Formoterol Fumarate (Symbicort 160-4.5 Mcg Inh) 2 puff BID INH 08/29/17 21:00 09/24/17 09:16 Morphine Sulfate (Morphine Inj) 2 mg Q4H PRN IV PUSH BREAKTHROUGH PAIN 09/01/17 16:00 09/17/17 23:07 Sodium Chloride (NS Flush) DAILY IVF 09/05/17 09:00 09/23/17 14:07 Heparin Sodium (Porcine) (Heparin Central Flush) DAILY IV FLUSH 09/05/17 09:00 09/24/17 09:49 Sodium Chloride (NS Flush) UNSCH PRN IVF SEE PROTOCOL 09/04/17 16:00 09/10/17 21:58 Sodium Chloride (NS Flush) UNSCH PRN IVF SEE PROTOCOL 09/04/17 16:00 09/10/17 21:59 Aztreonam 1000 mg/ Sodium Chloride 100 ml @ 200 mls/hr Q8H IV 09/06/17 12:00 09/24/17 04:53 Zinc Oxide (Desitin 40% Oint) 1 applic UNSCH PRN TOPICAL DIAPER RASH 09/12/17 09:30 09/13/17 18:07 Nystatin (Mycostatin Powder) 1 applic Q8HR TOPICAL 09/12/17 09:30 09/24/17 04:53 Lorazepam (Ativan) 0.5 mg Q6H PRN PO anxiety/ sleep 09/13/17 17:30 09/21/17 09:54 Multi-Ingredient Mouthwash/Gargle (Magic Mouthwash Adult Liq) 10 ml QID SWISH-SPIT 09/15/17 13:00 09/24/17 09:15 Oxycodone HCl (Roxicodone) 5 mg Q4H PRN PO pain 2-5 09/16/17 11:45 09/21/17 02:08 Oxycodone HCl (Roxicodone) 10 mg Q4H PRN PO pain 6-10 09/16/17 11:45 09/23/17 23:42 Furosemide (Lasix Inj) 40 mg DAILY@0900,1800 IV PUSH 09/18/17 18:00 Future hold 09/24/17 09:35 Albumin Human 100 ml @ 60 mls/hr Q12H IV 09/18/17 09:30 09/24/17 09:15 Temazepam (Restoril) 15 mg HS PRN PO insomnia 09/19/17 10:15 09/23/17 23:42 Multivitamins (Theragran) 1 tab DAILY PO 09/21/17 18:00 09/24/17 09:15 Calcium Carbonate (Oscal) 500 mg DAILY PO 09/21/17 18:00 09/24/17 09:15 Famciclovir (Famvir) 500 mg Q8HR PO 09/21/17 22:00 09/24/17 04:53 Magnesium Oxide (Mag-Ox) 400 mg Q12HR PO 09/22/17 09:45 09/24/17 09:15 Spironolactone (Aldactone) 25 mg BID PO 09/22/17 21:00 09/24/17 09:15 Lidocaine HCl (Xylocaine 2% Viscous) 15 ml Q4H PRN SWISH-SPIT SORE THROAT 09/22/17 15:00 09/24/17 09:16 Potassium Chloride/Dextrose 1,000 ml @ 35 mls/hr Q24H IV 09/23/17 15:15 09/23/17 21:57 Objective Remarks GENERAL: Older male sitting up in recliner chair at bedside in no obvious distress SKIN: Warm and dry. HEAD: Normocephalic. Somewhat hard of hearing EYES: No injection or drainage. NECK: Supple, trachea midline. CARDIOVASCULAR: Regular rate and rhythm without murmurs. RESPIRATORY: Clear posteriorly, mildly diminished in the bases. Breathing unlabored at rest. GASTROINTESTINAL: Abdomen soft, non-tender, nondistended. : Scrotal edema. Jensen catheter to bedside bag with clear kris urine noted EXTREMITIES: No cyanosis. Swelling much improved from previously seen to lower extremities MUSCULOSKELETAL: Generalized weakness. NEUROLOGICAL: No obvious focal deficit. Awake, alert, and oriented x3. 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 CT C/A/P showing no LAD Discussed w/ oncologist in [facility] pt's home town coordination of treatment when he leaves here. He has flight schedule 10/09/17. agreed to assume care, plan to fax records, appt to be made for the Sunday after his return home. 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 09/04: PICC line placement today, start R-EPOCH, give IT MTX. 09/05: Rituxan infusion complete. patient in TLS. transferred to ICU. community health program representative consulted. 09/06: start EPOCH, window closing as patient is now leukopenic. give blood and platelets. 09/07: give D2 EPOCH. give 1 unit pRBC, check repeat H/H. 09/08: give D3 EPOCH. 1 unit pRBC, 1 unit platelets. 09/09: D4 EPOCH, 2 units platelets. 09/10: D5--finish 4th bag of EPOCH, give Cytoxan this evening. 09/13/17: Continue G-CSF support 09/14/17: Transfuse 2 units packed red blood cells, 1 unit platelets 09/17/17: continue Neupogen. give 1 unit prbc 1 unit platelets. 09/18/17: start wound care instructions. 1 unit pRBC, 1 unit platelets. 09/20: edema improving. continue to replace potassium aggressively with diuresis. 09/21: WBC starting to recover. will plan to consult patient's neurosurgeon to ask them to place Ommaya reservoir when counts closer to recovery. 09/22: WBC continuing to recover. will give blood and platelets today. (2) Anasarca ICD Codes: R60.1 - Generalized edema Plan: --nephrology following. --receiving Lasix IV + spironolactone --Much improved. (3) Skin breakdown ICD Codes: L90.9 - Atrophic disorder of skin, unspecified Plan: --appreciate wound care assistance. improving. --Daly mattress started BID and PRN to Left Buttock 1. [place] Cavilon skin barrier film on purple non blanching pressure injury after gently cleansing 2. Apply Calazime skin protectant paste and leave open to air 3. Use ONLY disposable under pads for moisture (NO THICK COTTON UNDERPADS/DRAW SHEETS) *Reposition patient from left to right sides only. Limit time spent on back for therapies only* (4) Hypokalemia ICD Codes: E87.6 - Hypokalemia Plan: --due to diuresis. --continue to replace. (5) Hyperbilirubinemia ICD Codes: E80.6 - Other disorders of bilirubin metabolism Plan: --GI following Assessment 72y/o male with new diagnosis of Burkitt's lymphoma in the bone marrow given R- EPOCH chemo Plan 1. Stop Neupogen as his neutrophils have been 1000 or greater 3 days 2. Stop Aztreonam; discussed with Dr Benjamin 3. Consult neurosurgery for Ommaya reservoir placement prior to discharge 4. Will discuss with ID; will likely D/C IV Abx today as he is no longer neutropenic and has been afebrile. 5. Bilirubin mildly increased today; GI following. ?hemosiderosis 6. CBC, CMP in am. Attending Statement The exam, history, and the medical decision-making described in the above note were completed with the assistance of the mid-level provider. I reviewed and agree with the findings presented. I attest that I had a [id number] encounter with the patient on the same day, and personally performed and documented my assessment and findings in the medical record. Encouraged by platelet recovery, WBC increased. Follow CBC. Abx stopped, clinically improving. Albumin better, LE swelling decreased. Pt severely deconditioned, need to travel back to [place] Consult case management if he can transfer to [place] for recovery before Omaya placement. Discussed with NS, wait until platelet count >100K before NS intervention. Consider DC jensen catheter, try bladder training. Tiara Gonzalez September 24, 2017 10:22 Shahla Duron MD September 24, 2017 19:22
[2017-09-24] MEDS ORDERED: POTASSIUM CHLORIDE 10 MEQ CONTROLLED RELEASE TAB PO ONE (10:45)
--- NOTE | 2017-09-24 10:54 | HHI.PR ---
Subjective Remarks Patient says he is feeling all right. He does report some dull lower abdominal discomfort. Had a bowel movement today. No diarrhea. No tenderness on exam. Jensen output continues. He says he will let the nurse know if this gets worse. Objective Vital Signs Date Time Temp Pulse Resp B/P (MAP) Pulse Ox O2 Delivery O2 Flow Rate FiO2 09/24/17 09:06 98.5 79 18 138/77 (97) 92 09/24/17 08:00 73 09/24/17 04:47 97.4 67 18 134/72 (92) 93 09/24/17 04:05 75 09/24/17 00:42 16 09/24/17 00:00 98.5 87 18 138/64 (88) 93 09/23/17 23:03 79 09/23/17 20:50 98.3 79 18 147/72 (97) 93 09/23/17 20:50 Room Air 09/23/17 20:03 88 09/23/17 19:20 95 Nasal Cannula 2.00 09/23/17 16:00 98.0 85 20 153/84 (107) 94 09/23/17 13:00 97.6 85 20 145/78 95 09/23/17 12:28 98.0 77 20 144/74 94 09/23/17 11:37 98.1 77 20 125/72 95 09/23/17 11:17 98.2 82 18 123/70 94 I/O 09/23/17 09/23/17 09/23/17 09/24/17 09/24/17 09/24/17 07:00 15:00 23:00 07:00 15:00 23:00 Intake Total 720 ml 260 ml 2040 ml 480 ml Output Total 1450 ml 1250 ml 2425 ml 2250 ml Balance -730 ml -990 ml -385 ml -1770 ml Intake Oral 720 ml 1640 ml 480 ml Packed Cells 400 ml Platelets 260 ml Output Urine Total 1450 ml 1250 ml 2425 ml 2250 ml Bladder Scan Volume Amount 12 ml 12 ml # Bowel Movements 1 Result Diagram: 09/24/17 0500 09/24/17 0500 Objective Remarks GENERAL: Patient sitting up in chair as before. Appears comfortable. SKIN: Warm and dry. HEAD: Normocephalic. EYES: No scleral icterus. No injection or drainage. NECK: Supple, trachea midline. No JVD. CARDIOVASCULAR: Regular rate and rhythm without murmurs, gallops, or rubs. RESPIRATORY: Breath sounds equal bilaterally. No accessory muscle use. GASTROINTESTINAL: Abdomen soft, non-tender, nondistended. MUSCULOSKELETAL: No cyanosis. 3+ edema bilateral lower extremities, improved again today. No blistering or broken skin. BACK: Nontender without obvious deformity. No CVA tenderness. A/P Assessment and Plan === 09/24/17 //Hypokalemia. 3.0. Slightly improved. Replace with 10 MEQ tabs. //Hypophosphatemia. 2.1. Monitor and replace as necessary. //Hypernatremia. Sodium 148. increase hypotonic fluids. Recheck tomorrow. //Anasarca. Continue scheduled albumin. Continue Jensen for monitoring output. Continue scheduled albumin. Minimize fluids. //Anemia 7.1. Transfusion as needed by oncology. Appreciate assistance. //Transaminitis. Hyperbilirubinemia. = Bilirubinemia continues. 2.8. Could be due to iron overload. Appreciate GI assistance. LFTs improving slightly. //Thrombocytopenia platelets of 19. Improving. No signs of bleeding regimen as per hematology. //Oral irritation. Improved with lidocaine as needed. cont lidocaine and Magic mouthwash. //Gram-negative bacteremia. Continue antibiotics as per ID. 72y/o male with anemia + thrombocytopenia. History of prostate cancer, status post prostatectomy, coronary artery disease, s/p stent placement. 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 //Septic shock - resolved //E coli and strep viridans bacteremia - repeat blood cx are negative to date. Etiology of E coli in blood - No evidence of a UTI based on symptoms. ID consulted for further recommendation. Continue IV aztreonam for now.Echocardiogram shows an EF of 55-60% with moderate concentric left ventricular hypertrophy. No vegetation reported. //Tumor lysis syndrome - Resolved. Allopurinol on hold. Monitor closely. //Hyperkalemia now hypokalemia and hypocalcemia.-Continue to replace. Monitor closely. //LUCA/hypernatremia- creatinine trending down, good urine output. Continue half normal saline due to hypernatremia. Monitor BMPs every 6 hours. Cautioned to not overcorrect quickly sodium levels. Encourage p.o. hydration ( 250ml water q4-6hrs while awake). Nephrology following, appreciate recs. Pt has been started on diuril. Monitor Cr closely. //Metabolic acidosis - improved //Pancytopenia - requiring multiple transfusions ( ~daily). Transfusion and G -CSF per oncology. Transfuse 1 unit packed red blood cells and 1U PLT today 09/20/17 Transfuse to keep platelets greater than 10,000, hemoglobin greater than 7.5 Continue Neupogen //Burkitt's lymphoma receiving chemo. Management per hematology //History of prostate cancer status post XRT //Diarrhea - seems to have resolved, monitor. //Oral thrush/ mucositis give magic wash, //Scrotal edema/excoriations slight improved. Give lasix 20 mg IV scheduled and albumin IV. Monitor UOP. , monitor closely kidney function. Replenish electrolytes. Consult wound care, discussed with Edith mahoney wound care and with the nurse . Recommendation sfor wound care. Scrotal tears noted, pt having pain with urination due to urine touching those open tears and burning. Dr. Duron doesn't recommend placing a jensen as he is at high risk for bleeding due to his low plt count and also high risk for infection due to his neutropenia. Desitin cream and lidocaine jelly to be applied. Keep pt dry as much as possible. Place a condom catheter, will do but at this time, edema is too much and this cannot be done. Nystatin powder also ordered Patient however with significant scrotal edema and pain, has a Jensen placed with orange urine, fairly good OP. //Insomnia: Add temazepam Discharge Planning Continue to replace electrolytes Transfusing to keep hemoglobin and platelets within acceptable limits CM assisting with DC planning as family wishes to pursue care in [place] has a plane ticket for 09/22/17 Discussed with oncology today. Krunal Downs MD September 24, 2017 10:54
--- NOTE | 2017-09-24 11:46 | HHI.GIFU ---
Subjective Remarks Pt OOB to chair, just finished physical therapy. Had some mild nausea this morning. No GI complaints at this time. Wants to go home to [place]. (Jocelyn Tan) Objective Vitals I&O Vital Signs Date Time Temp Pulse Resp B/P (MAP) Pulse Ox O2 Delivery O2 Flow Rate FiO2 09/24/17 09:06 98.5 79 18 138/77 (97) 92 09/24/17 08:00 73 09/24/17 04:47 97.4 67 18 134/72 (92) 93 09/24/17 04:05 75 09/24/17 00:42 16 09/24/17 00:00 98.5 87 18 138/64 (88) 93 09/23/17 23:03 79 09/23/17 20:50 98.3 79 18 147/72 (97) 93 09/23/17 20:50 Room Air 09/23/17 20:03 88 09/23/17 19:20 95 Nasal Cannula 2.00 09/23/17 16:00 98.0 85 20 153/84 (107) 94 09/23/17 13:00 97.6 85 20 145/78 95 09/23/17 12:28 98.0 77 20 144/74 94 I/O 09/23/17 09/23/17 09/23/17 09/24/17 09/24/17 09/24/17 07:00 15:00 23:00 07:00 15:00 23:00 Intake Total 720 ml 260 ml 2040 ml 480 ml Output Total 1450 ml 1250 ml 2425 ml 2250 ml Balance -730 ml -990 ml -385 ml -1770 ml Intake Oral 720 ml 1640 ml 480 ml Packed Cells 400 ml Platelets 260 ml Output Urine Total 1450 ml 1250 ml 2425 ml 2250 ml Bladder Scan Volume Amount 12 ml 12 ml # Bowel Movements 1 Laboratory Laboratory Tests Test 09/23/17 14:20 09/24/17 05:00 Iron Level 52 Total Iron Binding Capacity 111 Percent Iron Saturation 47.0 Ferritin 1633 Anti-Nuclear Antibody Screen NEG White Blood Count 4.9 Red Blood Count 2.40 Hemoglobin 7.1 Hematocrit 20.7 Mean Corpuscular Volume 86.2 Mean Corpuscular Hemoglobin 29.7 Mean Corpuscular Hemoglobin Concent 34.4 Red Cell Distribution Width 14.5 Platelet Count 19 Mean Platelet Volume 8.2 Neutrophils (%) (Auto) 90.2 Lymphocytes (%) (Auto) 4.1 Monocytes (%) (Auto) 5.3 Eosinophils (%) (Auto) 0.1 Basophils (%) (Auto) 0.3 Neutrophils # (Auto) 4.4 Lymphocytes # (Auto) 0.2 Monocytes # (Auto) 0.3 Eosinophils # (Auto) 0.0 Basophils # (Auto) 0.0 CBC Comment AUTO DIFF Differential Total Cells Counted 100 Neutrophils % (Manual) 70 Band Neutrophils % 20 Lymphocytes % 4 Monocytes % 5 Neutrophils # (Manual) 4.5 Metamyelocytes 1 Nucleated Red Blood Cells 2 Differential Comment FINAL DIFF MANUAL Toxic Granulation 1+ Platelet Estimate LOW Platelet Morphology Comment NORMAL Blood Urea Nitrogen 32 Creatinine 1.00 Random Glucose 125 Total Protein 5.1 Albumin 2.8 Calcium Level 7.4 Phosphorus Level 2.1 Alkaline Phosphatase 133 Aspartate Amino Transf (AST/SGOT) 19 Alanine Aminotransferase (ALT/SGPT) 39 Total Bilirubin 2.8 Direct Bilirubin 1.3 Sodium Level 148 Potassium Level 3.0 Chloride Level 107 Carbon Dioxide Level 32.5 Anion Gap 9 Estimat Glomerular Filtration Rate 73 Protein Corrected Calcium 8.5 Indirect Bilirubin 1.5 Date/Time Source Procedure Growth Status 09/08/17 13:20 Blood Peripheral Aerobic Blood Culture - Final NO GROWTH IN 5 DAYS Complete 09/08/17 13:20 Blood Peripheral Anaerobic Blood Culture - Final NO GROWTH IN 5 DAYS Complete Imaging Last Impressions Liver Ultrasound 09/20/17 0000 Signed Impressions: Service Date/Time: September 16:29 - CONCLUSION: 1. Cholecystectomy. 2. Complex cyst right kidney measures 4.4 cm. 3. Splenomegaly. Srikanth Ambrosio MD Chest X-Ray 09/05/17 0000 Signed Impressions: Service Date/Time: Tuesday, September 05, 2017 01:50 - CONCLUSION: 1. Right PICC line in superior vena cava. Subsegmental basilar airspace disease. No effusion or pneumothorax. Cory Camarena MD PICC Line Insertion 09/04/17 0600 Signed Impressions: Service Date/Time: Monday, September 04, 2017 15:12 - CONCLUSION: 1. Uncomplicated central venous Power PICC line placement. 2. The PICC line can be used immediately. Santy Burciaga Jr., MD Lumbar Puncture Fluoroscopy 09/04/17 0000 Signed Impressions: Service Date/Time: Monday, September 04, 2017 15:12 - CONCLUSION: Uncomplicated fluoroscopically guided lumbar puncture with pressures as above. Intrathecal methotrexate was administered. Santy Burciaga Jr., MD Chest CT 09/01/17 0000 Signed Impressions: Service Date/Time: Friday, September 01, 2017 16:48 - CONCLUSION: 1. No definite evidence for metastatic disease to the thorax. 2. 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 3. Scattered atelectasis and scarring in the lungs. 4. Moderate coronary calcifications. Cory Camarena MD Abdomen/Pelvis CT 09/01/17 0000 Signed Impressions: Service Date/Time: Friday, September 01, 2017 16:48 - CONCLUSION: 1. Post surgical changes with findings of cholecystectomy and prostatectomy. 2. Scattered diverticular disease of the colon without diverticulitis. 3. Lobulated cyst in the upper poles of both kidneys with some calcification on the left. 4. Retroperitoneal fat herniates through the left hemidiaphragm into the posterior left lung base. 5. No acute intraperitoneal or pelvic process to explain current clinical symptoms Gavin Lynn MD Bone Biopsy CT 08/30/17 1535 Signed Impressions: Service Date/Time: August 16:19 - CONCLUSION: 1. Uncomplicated CT guided bone marrow aspirate. 2. Uncomplicated CT guided bone marrow biopsy. Srikanth Ambrosio MD Thoracic Spine CT 08/30/1799 Signed Impressions: Service Date/Time: August 01:37 - CONCLUSION: 1. No fracture, subluxation or other acute abnormality of the thoracic spine. 2. Scoliosis and mild multifocal degenerative changes as above. 3. Complex appearing cystic structures of the upper poles of both kidneys. Comparison to any previous outside facility studies is recommended to confirm chronicity and stability. Contrast enhanced study of the abdomen suggested if felt clinically indicated, preferably MRI if there are no contraindications. Tim Jones MD Lumbar Spine CT 08/30/1799 Signed Impressions: Service Date/Time: August 01:37 - CONCLUSION: 1. No acute fracture or acute subluxation of the lumbar spine. 2. 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 3. Mild spinal and bilateral foraminal stenosis at L4/L5. 4. Mild right and moderate left foraminal stenosis at L5/S1. 5. Benign vertebral body hemangioma of L1. No concerning lumbar spine bone lesion. Tim Jones MD Head CT 08/30/17 0100 Signed Impressions: Service Date/Time: August 01:37 - CONCLUSION: Small frontal maddy-falcine subdural blood is unchanged. Tim Jones MD Carotid Artery Ultrasound 08/30/17 0000 Signed Impressions: Service Date/Time: August 07:52 - CONCLUSION: 1. Diffuse calcified plaque throughout carotid arteries bilaterally with resultant moderate, 50-69%%, stenosis of the internal carotid arteries bilaterally and likely moderate stenosis of the left common carotid artery. 2. Antegrade vertebral artery flow bilaterally. Lopez Taylor MD Brain MRI 08/30/17 0000 Signed Impressions: Service Date/Time: August 09:27 - CONCLUSION: 1. Right frontal parafalcine abnormality on CT exam corresponds to a small meningioma. No definitive intra-or extra-axial hemorrhage. Lopez Taylor MD Physical Exam HEENT: Normocephalic; atraumatic CHEST: Even/unlabored CARDIAC: RRR ABDOMEN: Round, soft, nontender, bowel sounds active EXTREMITIES: BLE edema COMPUTER FORENSIC EXAMINER: No focal deficits; alert and oriented times three. (Jocelyn Tan [facility]) Assessment and Plan Plan Assessment: - Anemia- normocytic- on admission H/H was 7.8/23.2 S/P 2 U PRBCs currently 8.6/ 24.3 Pt does report one dark stool, had taken Pepto-Bismol prior. Emesis on day of admission. with similar symptoms and diarrhea, after they both ate [employer] grill. Hematology following- bone marrow biopsy done yesterday- results pending. 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 - Abnormal imaging- MRI brain --> Right frontal parafalcine abnormality on CT exam corresponds to a small meningioma. No definitive intro or extra-axial hemorrhage. Pt with complaints of dizziness on arrival RECONSULT for hyperbilirubinemia T bili has been mildly elevated but noted to be 4.4 yesterday Fractionated: Direct bilirubin-2.8 Indirect-1.6 Elevation in AST and Alk phos also noted US liver (09/20) --> Cholecystectomy. Complex cyst right kidney measures 4.4 cm. Splenomegaly. (09/23) T bili trending down, LFTs WNL, alk phos trending down. Pt with no GI complaints at this time. Pt receiving daily platelets and PRBCs per oncology. Elevation in T bili is likely multifactorial hemolysis, chemotherapy treatment, possible cholestasis secondary to medication 09/24/17 no GI complaints. LFTs trending down. indirect bili > direct, 2/2 hemolysis, multifactorial? liver w/u is pending. Plan monitor LFTs await liver w/u supportive care if d/c before liver w/u complete can obtain results of liver w/u from [place] Patient has been seen and examined by myself and and myself and this note is on her behalf (Jocelyn Tan) Jocelyn Tan September 24, 2017 11:46 Melba Hong MD September 24, 2017 17:43
[2017-09-24] MEDS: D5W + KCL 20 MEQ INJ 1,000 ML IV SCH ×2 (15:15→20:43)
--- NOTE | 2017-09-24 15:45 | HHI.IDPN ---
Note Infectious Disease Note Patient feels well. He is now able to eat solid foods without difficulty. Ambulated the hallways with physical therapy. Eating up in a chair. Denies chills, cough, shortness of breath, abdominal pain. Afebrile. at bedside. White blood cell count is increased to 4.9 today. Diagnosed with Burkitt lymphoma. The patient completed chemotherapy on 09/10. He has been receiving antibiotics for E. coli bacteremia, which was cultured on 09/06. PAST MEDICAL HISTORY: Asthma, gastroesophageal reflux disease, hypertension, history of prostate cancer, history of prostatectomy, history of cholecystectomy, history of coronary stent x 2. ALLERGIES: PENICILLIN. THE PATIENT RECALLS ALLERGIC REACTION FROM CHILDHOOD, BUT NO SPECIFIC DETAILS. QUINOLONES, DIPHENHYDRAMINE, HYDROCODONE, MEPERIDINE. MEDICATIONS: Current Medications Medications (Trade) Dose Ordered Sig/Robert Route PRN Reason Start Time Stop Time Status Last Admin Dose Admin Sodium Chloride (NS Flush) 2 ml UNSCH PRN IV FLUSH FLUSH AFTER USING IV ACCESS 08/29/17 15:45 09/08/17 23:42 Sodium Chloride (NS Flush) 2 ml BID IV FLUSH 08/29/17 21:00 09/24/17 09:16 Pantoprazole Sodium (Protonix Inj) 40 mg DAILY IV PUSH 08/30/17 09:00 09/24/17 09:15 Ondansetron HCl (Zofran Inj) 4 mg Q6H PRN IV PUSH NAUSEA OR VOMITING 08/29/17 16:00 09/24/17 09:14 Albuterol/ Ipratropium (Duoneb Neb) 1 ampule Q2HR NEB PRN INH WHEEZING 08/29/17 16:00 09/04/17 23:32 Miscellaneous Information 1 Q361D XX 08/29/17 15:45 Chlorhexidine Gluconate (Chlorhexidine 2% Cloth) Taper DAILY@04 TOP 08/30/17 04:00 08/26/18 03:59 09/13/17 05:13 Chlorhexidine Gluconate (Chlorhexidine 2% Cloth) 3 pack UNSCH PRN TOP HYGIENIC CARE 08/29/17 15:45 Senna/Docusate Sodium (Madina-Colace) 1 tab BID PO 08/29/17 21:00 09/24/17 09:15 Magnesium Hydroxide (Milk Of Magnesia Liq) 30 ml Q12H PRN PO Mild constipation 08/29/17 16:00 Sennosides (Senokot) 17.2 mg Q12H PRN PO Moderate constipation 08/29/17 16:00 Bisacodyl (Dulcolax Supp) 10 mg DAILY PRN RECTAL SEVERE CONSITIPATION 08/29/17 16:00 Lactulose (Lactulose Liq) 30 ml DAILY PRN PO SEVERE CONSITIPATION 08/29/17 16:00 Albuterol Sulfate (Proair Hfa Inh) 2 puff Q6H PRN INH SHORTNESS OF BREATH 08/29/17 18:00 09/13/17 11:05 Budesonide/ Formoterol Fumarate (Symbicort 160-4.5 Mcg Inh) 2 puff BID INH 08/29/17 21:00 09/24/17 09:16 Morphine Sulfate (Morphine Inj) 2 mg Q4H PRN IV PUSH BREAKTHROUGH PAIN 09/01/17 16:00 09/17/17 23:07 Sodium Chloride (NS Flush) DAILY IVF 09/05/17 09:00 09/23/17 14:07 Heparin Sodium (Porcine) (Heparin Central Flush) DAILY IV FLUSH 09/05/17 09:00 09/24/17 09:49 Sodium Chloride (NS Flush) UNSCH PRN IVF SEE PROTOCOL 09/04/17 16:00 09/10/17 21:58 Heparin Sodium (Porcine) (Heparin Central Flush) UNSCH PRN IV FLUSH SEE PROTOCOL 09/04/17 16:00 Sodium Chloride (NS Flush) UNSCH PRN IVF SEE PROTOCOL 09/04/17 16:00 09/10/17 21:59 Terbutaline Sulfate (Brethine Inj) 1 mg UNSCH PRN SQ For Extravasation 09/06/17 10:15 Zinc Oxide (Desitin 40% Oint) 1 applic UNSCH PRN TOPICAL DIAPER RASH 09/12/17 09:30 09/13/17 18:07 Nystatin (Mycostatin Powder) 1 applic Q8HR TOPICAL 09/12/17 09:30 09/24/17 04:53 Lorazepam (Ativan) 0.5 mg Q6H PRN PO anxiety/ sleep 09/13/17 17:30 09/21/17 09:54 Multi-Ingredient Mouthwash/Gargle (Magic Mouthwash Adult Liq) 10 ml QID SWISH-SPIT 09/15/17 13:00 09/24/17 13:52 Simethicone (Mylicon Chew) 80 mg TID PRN CHEW gas 09/15/17 11:45 Oxycodone HCl (Roxicodone) 5 mg Q4H PRN PO pain 2-5 09/16/17 11:45 09/21/17 02:08 Oxycodone HCl (Roxicodone) 10 mg Q4H PRN PO pain 6-10 09/16/17 11:45 09/23/17 23:42 Furosemide (Lasix Inj) 40 mg DAILY@0900,1800 IV PUSH 09/18/17 18:00 Future hold 09/24/17 09:35 Albumin Human 100 ml @ 60 mls/hr Q12H IV 09/18/17 09:30 09/24/17 09:15 Temazepam (Restoril) 15 mg HS PRN PO insomnia 09/19/17 10:15 09/23/17 23:42 Multivitamins (Theragran) 1 tab DAILY PO 09/21/17 18:00 09/24/17 09:15 Calcium Carbonate (Oscal) 500 mg DAILY PO 09/21/17 18:00 09/24/17 09:15 Famciclovir (Famvir) 500 mg Q8HR PO 09/21/17 22:00 09/24/17 13:52 Magnesium Oxide (Mag-Ox) 400 mg Q12HR PO 09/22/17 09:45 09/24/17 09:15 Spironolactone (Aldactone) 25 mg BID PO 09/22/17 21:00 09/24/17 09:15 Lidocaine HCl (Xylocaine 2% Viscous) 15 ml Q4H PRN SWISH-SPIT SORE THROAT 09/22/17 15:00 09/24/17 13:58 Potassium Chloride/Dextrose 1,000 ml @ 40 mls/hr Q24H IV 09/23/17 15:15 09/23/17 21:57 SOCIAL HISTORY: The patient resides in [place], [place]. No tobacco, rare alcohol use. No illicit drugs. Objective: Vital Signs Date Time Temp Pulse Resp B/P (MAP) Pulse Ox O2 Delivery O2 Flow Rate FiO2 09/24/17 09:06 98.5 79 18 138/77 (97) 92 09/24/17 08:00 73 09/24/17 04:47 97.4 67 18 134/72 (92) 93 09/24/17 04:05 75 09/24/17 00:42 16 09/24/17 00:00 98.5 87 18 138/64 (88) 93 09/23/17 23:03 79 09/23/17 20:50 98.3 79 18 147/72 (97) 93 09/23/17 20:50 Room Air 09/23/17 20:03 88 09/23/17 19:20 95 Nasal Cannula 2.00 09/23/17 16:00 98.0 85 20 153/84 (107) 94 Laboratory Tests Test 09/23/17 06:10 09/24/17 05:00 White Blood Count 2.3 TH/MM3 4.9 TH/MM3 Red Blood Count 2.27 MIL/MM3 2.40 MIL/MM3 Hemoglobin 6.7 GM/DL 7.1 GM/DL Hematocrit 19.6 % 20.7 % Mean Corpuscular Volume 86.3 FL 86.2 FL Mean Corpuscular Hemoglobin 29.5 PG 29.7 PG Mean Corpuscular Hemoglobin Concent 34.2 % 34.4 % Red Cell Distribution Width 14.6 % 14.5 % Platelet Count 11 TH/MM3 19 TH/MM3 Mean Platelet Volume 8.2 FL 8.2 FL CBC Comment AUTO DIFF AUTO DIFF Differential Total Cells Counted 100 100 Neutrophils % (Manual) 60 % 70 % Band Neutrophils % 13 % 20 % Lymphocytes % 11 % 4 % Monocytes % 7 % 5 % Basophils % 3 % Neutrophils # (Manual) 1.8 TH/MM3 4.5 TH/MM3 Metamyelocytes 5 % 1 % Promyelocytes 1 % Nucleated Red Blood Cells 2 /100 WBC 2 /100 WBC Differential Comment FINAL DIFF MANUAL FINAL DIFF MANUAL Toxic Granulation 3+ 1+ Dohle Bodies PRESENT Platelet Estimate RARE LOW Platelet Morphology Comment NORMAL NORMAL Neutrophils (%) (Auto) 90.2 % Lymphocytes (%) (Auto) 4.1 % Monocytes (%) (Auto) 5.3 % Eosinophils (%) (Auto) 0.1 % Basophils (%) (Auto) 0.3 % Neutrophils # (Auto) 4.4 TH/MM3 Lymphocytes # (Auto) 0.2 TH/MM3 Monocytes # (Auto) 0.3 TH/MM3 Eosinophils # (Auto) 0.0 TH/MM3 Basophils # (Auto) 0.0 TH/MM3 Laboratory Tests Test 09/23/17 06:10 09/23/17 14:20 09/24/17 05:00 Blood Urea Nitrogen 38 MG/DL 32 MG/DL Creatinine 1.04 MG/DL 1.00 MG/DL Random Glucose 145 MG/DL 125 MG/DL Total Protein 4.8 GM/DL 5.1 GM/DL Albumin 2.6 GM/DL 2.8 GM/DL Calcium Level 7.7 MG/DL 7.4 MG/DL Phosphorus Level 1.2 MG/DL 2.1 MG/DL Magnesium Level 1.6 MG/DL Alkaline Phosphatase 137 U/L 133 U/L Aspartate Amino Transf (AST/SGOT) 18 U/L 19 U/L Alanine Aminotransferase (ALT/SGPT) 42 U/L 39 U/L Total Bilirubin 2.3 MG/DL 2.8 MG/DL Direct Bilirubin 1.2 MG/DL 1.3 MG/DL Sodium Level 149 MEQ/L 148 MEQ/L Potassium Level 3.1 MEQ/L 3.0 MEQ/L Chloride Level 108 MEQ/L 107 MEQ/L Carbon Dioxide Level 34.1 MEQ/L 32.5 MEQ/L Anion Gap 7 MEQ/L 9 MEQ/L Estimat Glomerular Filtration Rate 70 ML/MIN 73 ML/MIN Indirect Bilirubin 1.1 MG/DL 1.5 MG/DL Iron Level 52 MCG/DL Total Iron Binding Capacity 111 MCG/DL Percent Iron Saturation 47.0 % Ferritin 1633 NG/ML Protein Corrected Calcium 8.5 MG/DL Imaging: Liver Ultrasound 09/20/17 0000 Signed Impressions: Service Date/Time: September 16:29 - CONCLUSION: 1. Cholecystectomy. 2. Complex cyst right kidney measures 4.4 cm. 3. Splenomegaly. Srikanth Ambrosio MD Chest X-Ray 09/05/17 0000 Signed Impressions: Service Date/Time: Tuesday, September 05, 2017 01:50 - CONCLUSION: 1. Right PICC line in superior vena cava. Subsegmental basilar airspace disease. No effusion or pneumothorax. Cory Camarena MD PICC Line Insertion 09/04/17 0600 Signed Impressions: Service Date/Time: Monday, September 04, 2017 15:12 - CONCLUSION: 1. Uncomplicated central venous Power PICC line placement. 2. The PICC line can be used immediately. Santy Burciaga Jr., MD Lumbar Puncture Fluoroscopy 09/04/17 0000 Signed Impressions: Service Date/Time: Monday, September 04, 2017 15:12 - CONCLUSION: Uncomplicated fluoroscopically guided lumbar puncture with pressures as above. Intrathecal methotrexate was administered. Santy Burciaga Jr., MD Chest CT 09/01/17 0000 Signed Impressions: Service Date/Time: Friday, September 01, 2017 16:48 - CONCLUSION: 1. No definite evidence for metastatic disease to the thorax. 2. 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 3. Scattered atelectasis and scarring in the lungs. 4. Moderate coronary calcifications. Cory Camarena MD Abdomen/Pelvis CT 09/01/17 0000 Signed Impressions: Service Date/Time: Friday, September 01, 2017 16:48 - CONCLUSION: 1. Post surgical changes with findings of cholecystectomy and prostatectomy. 2. Scattered diverticular disease of the colon without diverticulitis. 3. Lobulated cyst in the upper poles of both kidneys with some calcification on the left. 4. Retroperitoneal fat herniates through the left hemidiaphragm into the posterior left lung base. 5. No acute intraperitoneal or pelvic process to explain current clinical symptoms Gavin Lynn MD Bone Biopsy CT 08/30/17 1535 Signed Impressions: Service Date/Time: August 16:19 - CONCLUSION: 1. Uncomplicated CT guided bone marrow aspirate. 2. Uncomplicated CT guided bone marrow biopsy. Srikanth Ambrosio MD Thoracic Spine CT 08/30/170 Signed Impressions: Service Date/Time: August 01:37 - CONCLUSION: 1. No fracture, subluxation or other acute abnormality of the thoracic spine. 2. Scoliosis and mild multifocal degenerative changes as above. 3. Complex appearing cystic structures of the upper poles of both kidneys. Comparison to any previous outside facility studies is recommended to confirm chronicity and stability. Contrast enhanced study of the abdomen suggested if felt clinically indicated, preferably MRI if there are no contraindications. Tim Jones MD Lumbar Spine CT 08/30/1799 Signed Impressions: Service Date/Time: August 01:37 - CONCLUSION: 1. No acute fracture or acute subluxation of the lumbar spine. 2. 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 3. Mild spinal and bilateral foraminal stenosis at L4/L5. 4. Mild right and moderate left foraminal stenosis at L5/S1. 5. Benign vertebral body hemangioma of L1. No concerning lumbar spine bone lesion. Tim Jones MD Head CT 08/30/17 0100 Signed Impressions: Service Date/Time: August 01:37 - CONCLUSION: Small frontal madina-falcine subdural blood is unchanged. Tim Jones MD Carotid Artery Ultrasound 08/30/17 0000 Signed Impressions: Service Date/Time: August 07:52 - CONCLUSION: 1. Diffuse calcified plaque throughout carotid arteries bilaterally with resultant moderate, 50-69%%, stenosis of the internal carotid arteries bilaterally and likely moderate stenosis of the left common carotid artery. 2. Antegrade vertebral artery flow bilaterally. Lopez Taylor MD Brain MRI 08/30/17 0000 Signed Impressions: Service Date/Time: August 09:27 - CONCLUSION: 1. Right frontal parafalcine abnormality on CT exam corresponds to a small meningioma. No definitive intra-or extra-axial hemorrhage. Lopez Taylor MD PHYSICAL EXAMINATION: GENERAL: No acute distress. Awake and alert HEENT: Extraocular movements are grossly intact. Pupils reactive to light. No icterus. Moist mucosa. No lesions visible. NECK: Supple without adenopathy. LUNGS: Clear breath sounds. HEART: Regular S1 and S2. No murmurs, rubs or gallop. ABDOMEN: Obese, soft, diminished bowel sounds. Nontender. : Scrotal swelling resolved. EXTREMITIES: Diffuse 2+ edema of the lower extremities. Punctate petechial lesions at the lower extremities. Petechiae at the right upper arm area of IV catheter. SKIN: No diffuse rash. Ecchymosis at the right anterior neck now has a dry scab. NEUROLOGIC: Nonfocal. PSYCHIATRIC: Calm and cooperative. IMPRESSION: 1. Persistent profound neutropenia and thrombocytopenia in patient with Burkitt lymphoma. Neutropenia resolved. Still with thrombocytopenia. Status post chemotherapy. 3. Severe mucositis. Markedly improved. 4. Diffuse anasarca. Improving. 5. Elevated direct bilirubin. Possible medication effect. Can be caused by acyclovir. Improved. 6. Bacteremia due to E. coli. Treated and resolved. Plans are to insert and [place] reservoir in a few days. RECOMMENDATIONS: 1. Stop aztreonam. 2. Continue famciclovir. 3. Continue oral nystatin. 4. Monitor the temperature. Patient is stable from infection standpoint. I will follow him as needed. Estevan Benjamin MD September 24, 2017 15:45
--- NOTE | 2017-09-24 17:04 | HHI.NPPN ---
Subjective General Problems: Edema Renal Failure: Acute History of Present Illness Patient is a 72 year old male with a past medical history of prostate cancer, asthma, gastroesophageal reflux, Muñoz's esophagus,hypertension, new anemia, new thrombocytopenia, rotator cuff injury, and back pain. 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 Patient was receiving Rituxan last night and developed a reaction with low grade temperature, pain, and tremor. Plan to transfer patient to intensive care unit as patient is at risk for fluid overload with blood transfusions and acute kidney injury. Nephrology is consulted for acute kidney injury with creatinine of 2.44 with a admission creatinine of 0.99. HGB is low at 7.2, Plt of 27, NA 148, CO2 14.5. Patient is resting comfortably now with his only complaint is that is dizzy with ambulation. Additional Remarks Patient is resting comfortably. Reported having a good day. Edema improving. (Janet iRbeiro) Review of Systems Respiratory Respiratory Remarks Denies any SOB (Janet Ribeiro) Cardiovascular Cardiac: Edema Cardiac Remarks Denies any CP (Janet Ribeiro) Gastrointestinal GI Remarks Denies any abdominal pain (Janet Ribeiro) Objective Data Data 09/24/17 09/25/17 19:00 07:00 Output Total 1000 ml Balance -1000 ml Output Urine Total 1000 ml Vital Signs Date Time Temp Pulse Resp B/P (MAP) Pulse Ox O2 Delivery O2 Flow Rate FiO2 09/24/17 16:00 74 09/24/17 15:59 97.3 72 18 192/99 (130) 94 09/24/17 12:00 70 09/24/17 09:06 98.5 79 18 138/77 (97) 92 09/24/17 08:00 73 09/24/17 04:47 97.4 67 18 134/72 (92) 93 09/24/17 04:05 75 09/24/17 00:42 16 09/24/17 00:00 98.5 87 18 138/64 (88) 93 09/23/17 23:03 79 09/23/17 20:50 98.3 79 18 147/72 (97) 93 09/23/17 20:50 Room Air 09/23/17 20:03 88 09/23/17 19:20 95 Nasal Cannula 2.00 (Janet Ribeiro) -: 09/24/17 0500 09/24/17 0500 Physical Exam General Appearance: No Acute Distress, Comfortable, Anxious (Janet Ribeiro) Throat Throat Exam: Oral Mucosa Mcrae & Moist (Janet Ribeiro) Pulmonary Resp Exam: Breath Sounds Equal, No Distress (Janet Ribeiro) Cardiology CV Exam: Regular, Normal Sinus Rhythm (Janet Ribeiro) Gastrointestinal/Abdomen GI Exam: Soft, Non-Tender, Distended (Janet Ribeiro) Genitourinary Exam: Flank Non-Tender (Janet Ribeiro) Integumentary Skin Exam: Clear, Warm (Janet Ribeiro) Extremeties Extremities Exam: Moderate Edema, Pitting Edema, Dependent Edema (Janet Ribeiro) Neurologic Neuro Exam: Alert, Awake, Oriented (Janet Ribeiro) Psychiatric Psych Exam: Appropriate Responses (Janet Ribeiro) Assessment/Plan Electrolyte Assessment: Hypernatremia, Hypokalemia Problem List: (1) Acute kidney injury ICD Codes: N17.9 - Acute kidney failure, unspecified Plan: Acute kidney injury with creatinine of 2.44 when consulted. Acute kidney injury most likely related to tumor lysis. On admission creatinine of 0.99. CT of abdomen on the with kidney with normal in size and shape. There is no mass, stone or hydronephrosis. Lobulated cysts in the upper poles of both kidneys with some benign-appearing calcification on the left Creatinine stable Plan Will monitor renal panel periodically Avoid nephrotoxins. Encouraged to elevate legs throughout day Continue Lasix to 40 mg BID and albumin Creatinine has remained stable Continue Aldactone BID Edema is improving Hypernatremia D5 W infusing with some improvement in sodium at 148 (2) B-cell lymphoma ICD Codes: C85.10 - Unspecified B-cell lymphoma, unspecified site Status: Acute Plan: Oncology managing (3) Anemia ICD Codes: D64.9 - Anemia, unspecified Status: Acute Plan: Monitoring (Gellermann,Janet M. PRODUCTION WOOD CRAFTSMAN) Problem List: (1) Acute kidney injury ICD Codes: N17.9 - Acute kidney failure, unspecified Plan: Acute kidney injury with creatinine of 2.44 when consulted. Acute kidney injury most likely related to tumor lysis. On admission creatinine of 0.99. CT of abdomen on the with kidney with normal in size and shape. There is no mass, stone or hydronephrosis. Lobulated cysts in the upper poles of both kidneys with some benign-appearing calcification on the left Creatinine stable Plan Will monitor renal panel periodically Avoid nephrotoxins. Encouraged to elevate legs throughout day Continue Lasix to 40 mg BID and albumin Creatinine has remained stable Continue Aldactone BID Edema is improving Hypernatremia D5 W infusing with some improvement in sodium at 148. Patient seen and examined, agree with above. Continue diuretics, follow the BMP. (2) B-cell lymphoma ICD Codes: C85.10 - Unspecified B-cell lymphoma, unspecified site Status: Acute Plan: Oncology managing (3) Anemia ICD Codes: D64.9 - Anemia, unspecified Status: Acute Plan: Monitoring (Demi Mendez MD) Problem Qualifiers (1) Anemia: Qualified Codes: D64.9 - Anemia, unspecified Janet Ribeiro September 24, 2017 17:04 Demi Mendez MD September 24, 2017 22:28
[2017-09-24] MEDS: TEMAZEPAM 15 MG CAP PO PRN (22:49)
[2017-09-25] VITALS (13 sets, daily range): BP systolic 90–148; BP diastolic 69–90; PULSE 68–79; RESP 16–20; TEMP 98.1–98.7; O2SAT 93–97
[2017-09-25] MEDS: CHLORHEXIDINE GLUCONATE 2 % 1 PACK (2 CLOTHS) TOP SCH (04:00)
[2017-09-25] MEDS: FAMCICLOVIR 500 MG TAB PO SCH ×3 (05:28→20:56)
[2017-09-25] MEDS: NYSTATIN 100,000 U/GM PWD 15 GM BTL TOPICAL SCH ×3 (05:28→20:57)
[2017-09-25 06:30] LABS: AUTOMATED NEUTROPHIL # 2.4 TH/MM3 (1.8-7.7); BASOPHIL % 0.3 % (0.0-2.0); EOSINOPHIL % 0.1 % (0.0-4.0); LYMPH % 5.9 % (9.0-44.0); LYMPHOCYTE # 0.2 TH/MM3 (1.0-4.8); MEAN CELL VOLUME 86.2 FL (80.0-100.0); MEAN CORPUSCULAR HGB CONC 34.8 % (32.0-36.0); MEAN PLATELET VOLUME 9.3 FL (7.0-11.0); MONO % 8.9 % (0.0-8.0); MONOCYTE # 0.3 TH/MM3 (0-0.9); NEUT % 84.8 % (16.0-70.0); PLATELET COUNT 22 TH/MM3 (150-450); RED BLOOD COUNT 2.28 MIL/MM3 (4.50-5.90); RED CELL DISTRIBUTION WIDTH 14.5 % (11.6-17.2); WHITE BLOOD COUNT 2.9 TH/MM3 (4.0-11.0)
[2017-09-25 06:40] LABS: HEMATOCRIT 19.7 % (39.0-51.0); HEMOGLOBIN 6.8 GM/DL (13.0-17.0)
[2017-09-25] MEDS ORDERED: SODIUM CHLOR 0.9% 250 ML INJ 250 ML IV ONE (07:45)
[2017-09-25 07:57] LABS: ALBUMIN 3.1 GM/DL (3.4-5.0); BICARBONATE 30.8 MEQ/L (21.0-32.0); CALCIUM 7.5 MG/DL (8.5-10.1); CREATININE 0.9 MG/DL (0.60-1.30); MAGNESIUM 1.7 MG/DL (1.5-2.5)
[2017-09-25 07:58] LABS: DIRECT BILIRUBIN ADULT 0.9 MG/DL (0.0-0.2)
[2017-09-25 08:01] LABS: INDIRECT BILIRUBIN 0.9 MG/DL (0.0-0.8); PHOSPHORUS 2.5 MG/DL (2.5-4.9); TOTAL BILIRUBIN ADULT 1.8 MG/DL (0.2-1.0); TOTAL PROTEIN 5.2 GM/DL (6.4-8.2)
[2017-09-25] MEDS: DOCUSATE SODIUM 50 MG/SENNA 8.6 MG TAB PO SCH ×2 (09:00→20:57)
[2017-09-25 09:20] LABS: BANDS 13 % (0-6); BASOPHILS 1 % (0-2); LYMPHOCYTES 2 % (9-44); METAMYELOCYTES 6 % (0-1); MONOCYTES 6 % (0-8); MYELOCYTES 5 % (0-0); NEUTROPHIL # MANUAL DIFF 2.6 TH/MM3 (1.8-7.7); POLYS (SEG NEUTROPHILS) 67 % (16-70); TOXIC GRANULATION 1+ (NORMAL)
--- NOTE | 2017-09-25 09:31 | PD.ONC.PN ---
Subjective Subjective Remarks Afebrile overnight. Patient resting in room. Feeling much improved. eating better. mobility improving. Objective Data Date Time Temp Pulse Resp B/P (MAP) Pulse Ox O2 Delivery O2 Flow Rate FiO2 09/25/17 08:20 98.2 72 20 138/74 (95) 95 09/25/17 07:00 69 09/25/17 05:23 98.1 71 20 133/69 (90) 95 09/25/17 04:11 70 09/25/17 00:06 79 09/25/17 00:06 93 Room Air 09/25/17 00:00 98.7 79 20 137/75 (95) 93 09/24/17 20:35 92 21 09/24/17 20:30 98.2 74 16 130/63 (85) 94 09/24/17 20:07 77 09/24/17 17:52 97.6 75 18 133/77 (95) 94 09/24/17 16:00 74 09/24/17 15:59 97.3 72 18 192/99 (130) 94 09/24/17 12:00 70 09/25/17 09/25/17 09/25/17 07:00 15:00 23:00 Intake Total 300 ml Output Total 1150 ml Balance -850 ml Result Diagram: 09/25/17 0537 09/25/1737 Laboratory Results Laboratory Tests Test 09/25/17 05:37 White Blood Count 2.9 TH/MM3 Red Blood Count 2.28 MIL/MM3 Hemoglobin 6.8 GM/DL Hematocrit 19.7 % Mean Corpuscular Volume 86.2 FL Mean Corpuscular Hemoglobin 30.0 PG Mean Corpuscular Hemoglobin Concent 34.8 % Red Cell Distribution Width 14.5 % Platelet Count 22 TH/MM3 Mean Platelet Volume 9.3 FL Neutrophils (%) (Auto) 84.8 % Lymphocytes (%) (Auto) 5.9 % Monocytes (%) (Auto) 8.9 % Eosinophils (%) (Auto) 0.1 % Basophils (%) (Auto) 0.3 % Neutrophils # (Auto) 2.4 TH/MM3 Lymphocytes # (Auto) 0.2 TH/MM3 Monocytes # (Auto) 0.3 TH/MM3 Eosinophils # (Auto) 0.0 TH/MM3 Basophils # (Auto) 0.0 TH/MM3 CBC Comment AUTO DIFF Differential Total Cells Counted 100 Neutrophils % (Manual) 67 % Band Neutrophils % 13 % Lymphocytes % 2 % Monocytes % 6 % Basophils % 1 % Neutrophils # (Manual) 2.6 TH/MM3 Metamyelocytes 6 % Myelocytes 5 % Differential Comment FINAL DIFF MANUAL Toxic Granulation 1+ Platelet Estimate LOW Platelet Morphology Comment NORMAL Blood Urea Nitrogen 27 MG/DL Creatinine 0.90 MG/DL Random Glucose 127 MG/DL Total Protein 5.2 GM/DL Albumin 3.1 GM/DL Calcium Level 7.5 MG/DL Phosphorus Level 2.5 MG/DL Magnesium Level 1.7 MG/DL Alkaline Phosphatase 100 U/L Aspartate Amino Transf (AST/SGOT) 9 U/L Alanine Aminotransferase (ALT/SGPT) 29 U/L Total Bilirubin 1.8 MG/DL Direct Bilirubin 0.9 MG/DL Sodium Level 145 MEQ/L Potassium Level 3.1 MEQ/L Chloride Level 106 MEQ/L Carbon Dioxide Level 30.8 MEQ/L Anion Gap 8 MEQ/L Estimat Glomerular Filtration Rate 83 ML/MIN Indirect Bilirubin 0.9 MG/DL Administered Medications Medications (Trade) Dose Ordered Sig/Robert Route PRN Reason Start Time Stop Time Status Last Admin Dose Admin Sodium Chloride (NS Flush) 2 ml UNSCH PRN IV FLUSH FLUSH AFTER USING IV ACCESS 08/29/17 15:45 09/08/17 23:42 Sodium Chloride (NS Flush) 2 ml BID IV FLUSH 08/29/17 21:00 09/24/17 20:34 Pantoprazole Sodium (Protonix Inj) 40 mg DAILY IV PUSH 08/30/17 09:00 09/24/17 09:15 Ondansetron HCl (Zofran Inj) 4 mg Q6H PRN IV PUSH NAUSEA OR VOMITING 08/29/17 16:00 09/24/17 09:14 Albuterol/ Ipratropium (Duoneb Neb) 1 ampule Q2HR NEB PRN INH WHEEZING 08/29/17 16:00 09/04/17 23:32 Chlorhexidine Gluconate (Chlorhexidine 2% Cloth) Taper DAILY@04 TOP 08/30/17 04:00 08/26/18 03:59 09/13/17 05:13 Senna/Docusate Sodium (Madina-Colace) 1 tab BID PO 08/29/17 21:00 09/24/17 09:15 Albuterol Sulfate (Proair Hfa Inh) 2 puff Q6H PRN INH SHORTNESS OF BREATH 08/29/17 18:00 09/13/17 11:05 Budesonide/ Formoterol Fumarate (Symbicort 160-4.5 Mcg Inh) 2 puff BID INH 08/29/17 21:00 09/24/17 20:35 Morphine Sulfate (Morphine Inj) 2 mg Q4H PRN IV PUSH BREAKTHROUGH PAIN 09/01/17 16:00 09/17/17 23:07 Sodium Chloride (NS Flush) DAILY IVF 09/05/17 09:00 09/23/17 14:07 Heparin Sodium (Porcine) (Heparin Central Flush) DAILY IV FLUSH 09/05/17 09:00 09/24/17 09:49 Sodium Chloride (NS Flush) UNSCH PRN IVF SEE PROTOCOL 09/04/17 16:00 09/10/17 21:58 Sodium Chloride (NS Flush) UNSCH PRN IVF SEE PROTOCOL 09/04/17 16:00 09/10/17 21:59 Zinc Oxide (Desitin 40% Oint) 1 applic UNSCH PRN TOPICAL DIAPER RASH 09/12/17 09:30 09/13/17 18:07 Nystatin (Mycostatin Powder) 1 applic Q8HR TOPICAL 09/12/17 09:30 09/25/17 05:28 Lorazepam (Ativan) 0.5 mg Q6H PRN PO anxiety/ sleep 09/13/17 17:30 09/21/17 09:54 Multi-Ingredient Mouthwash/Gargle (Magic Mouthwash Adult Liq) 10 ml QID SWISH-SPIT 09/15/17 13:00 09/24/17 19:05 Oxycodone HCl (Roxicodone) 5 mg Q4H PRN PO pain 2-5 09/16/17 11:45 09/21/17 02:08 Oxycodone HCl (Roxicodone) 10 mg Q4H PRN PO pain 6-10 09/16/17 11:45 09/23/17 23:42 Furosemide (Lasix Inj) 40 mg DAILY@0900,1800 IV PUSH 09/18/17 18:00 Future hold 09/24/17 19:05 Albumin Human 100 ml @ 60 mls/hr Q12H IV 09/18/17 09:30 09/24/17 20:33 Temazepam (Restoril) 15 mg HS PRN PO insomnia 09/19/17 10:15 09/24/17 22:49 Multivitamins (Theragran) 1 tab DAILY PO 09/21/17 18:00 09/24/17 09:15 Calcium Carbonate (Oscal) 500 mg DAILY PO 09/21/17 18:00 09/24/17 09:15 Famciclovir (Famvir) 500 mg Q8HR PO 09/21/17 22:00 09/25/17 05:28 Magnesium Oxide (Mag-Ox) 400 mg Q12HR PO 09/22/17 09:45 09/24/17 20:34 Spironolactone (Aldactone) 25 mg BID PO 09/22/17 21:00 09/24/17 20:34 Lidocaine HCl (Xylocaine 2% Viscous) 15 ml Q4H PRN SWISH-SPIT SORE THROAT 09/22/17 15:00 09/24/17 13:58 Potassium Chloride/Dextrose 1,000 ml @ 40 mls/hr Q24H IV 09/23/17 15:15 09/24/17 20:43 Objective Remarks GENERAL: elderly male, upright in chair next to bed resting. SKIN: Warm and dry. HEAD: Normocephalic. EYES: No injection or drainage. NECK: Supple, trachea midline. CARDIOVASCULAR: Regular rate and rhythm RESPIRATORY: Breath sounds equal bilaterally. No accessory muscle use. GASTROINTESTINAL: Abdomen soft, non-tender, nondistended. EXTREMITIES: No cyanosis. mild edema, bilateral lower extremities. NEUROLOGICAL: awake and alert. normal speech. moving extremities. 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 CT C/A/P showing no LAD Discussed w/ oncologist in [facility] pt's home town coordination of treatment when he leaves here. He has flight schedule 10/09/17. agreed to assume care, plan to fax records, appt to be made for the Sunday after his return home. 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 09/04: PICC line placement today, start R-EPOCH, give IT MTX. 09/05: Rituxan infusion complete. patient in TLS. transferred to ICU. application architect manager consulted. 09/06: start EPOCH, window closing as patient is now leukopenic. give blood and platelets. 09/07: give D2 EPOCH. give 1 unit pRBC, check repeat H/H. 09/08: give D3 EPOCH. 1 unit pRBC, 1 unit platelets. 09/09: D4 EPOCH, 2 units platelets. 09/10: D5--finish 4th bag of EPOCH, give Cytoxan this evening. 09/13/17: Continue G-CSF support 09/14/17: Transfuse 2 units packed red blood cells, 1 unit platelets 09/17/17: continue Neupogen. give 1 unit prbc 1 unit platelets. 09/18/17: start wound care instructions. 1 unit pRBC, 1 unit platelets. 09/20: edema improving. continue to replace potassium aggressively with diuresis. 09/21: WBC starting to recover. will plan to consult patient's neurosurgeon to ask them to place Ommaya reservoir when counts closer to recovery. 09/22: WBC continuing to recover. will give blood and platelets today. 09/23: give 1 unit platelets. await ommaya placement. (2) Anasarca ICD Codes: R60.1 - Generalized edema Plan: --continuing to improve. --appreciate nephrology assistance. --receiving Lasix IV + spironolactone (3) Skin breakdown ICD Codes: L90.9 - Atrophic disorder of skin, unspecified Plan: --appreciate wound care assistance. improving. (4) Hypokalemia ICD Codes: E87.6 - Hypokalemia Plan: --due to diuresis. --continue to replace. (5) Hyperbilirubinemia ICD Codes: E80.6 - Other disorders of bilirubin metabolism Plan: --improving. Assessment 72y/o male with new diagnosis of Burkitt's lymphoma in the bone marrow given R- EPOCH chemo Plan 1. replace one unit pRBC 2. await Ommaya reservoir placement 3. d/c to [facility] after Ommaya 4. resume Neupogen. Attending Statement The exam, history, and the medical decision-making described in the above note were completed with the assistance of the mid-level provider. I reviewed and agree with the findings presented. I attest that I had a [id number] encounter with the patient on the same day, and personally performed and documented my assessment and findings in the medical record. Ambulating w/ PT, still clinically deconditioned, significant feet swelling at end of the day. Hopeful for platelet recovery for Omaya placement. NS and anesthesiology on board. Continue support for cytopenias. No fevers. Appetite improving. Renal function stable. supportive. 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 As discussed w/ Oncologist who will be treating him in [place], she prefers the Omaya. Laurita Davila September 25, 2017 09:30 Shahla Duron MD September 25, 2017 20:47
[2017-09-25] MEDS: MULTIVITAMIN TAB PO SCH (09:50)
[2017-09-25] MEDS: ALBUMIN 25% INJ 100 ML IV SCH ×2 (09:50→20:56)
[2017-09-25] MEDS: NYSTAT/DIPHENHY/LIDO MOUTHWASH (Adult) 120ML SWISH-SPIT SCH ×4 (09:50→21:00)
[2017-09-25] MEDS: SPIRONOLACTONE 25 MG TAB PO SCH ×2 (09:50→20:56)
[2017-09-25] MEDS: LIDOCAINE VISCOUS 2% SOLN 15 ML UDC SWISH-SPIT PRN ×3 (09:50→16:05)
[2017-09-25] MEDS: CALCIUM CARBONATE 1.25 GM (CA 500 MG) TAB PO SCH (09:51)
[2017-09-25] MEDS: PANTOPRAZOLE SODIUM 40 MG VIAL IV PUSH SCH (09:51)
[2017-09-25] MEDS: MAGNESIUM OXIDE 400 MG TAB PO SCH ×2 (09:51→20:56)
[2017-09-25] MEDS: BUDESONIDE-FORMOTEROL 160/4.5 MCG INHALER INH SCH ×2 (09:51→21:04)
[2017-09-25] MEDS: SODIUM CHLORIDE 0.9% FLUSH 10 ML FLUSH IV FLUSH SCH ×2 (09:55→21:00)
[2017-09-25] MEDS: FUROSEMIDE 20 MG/2 ML VIAL IV PUSH SCH ×2 (09:55→16:06)
[2017-09-25] MEDS: SODIUM CHLORIDE 0.9% FLUSH 10 ML FLUSH IVF SCH (10:00)
[2017-09-25 13:52] LABS: SMOOTH MUSCLE TOTAL AUTOABS Negative (Negative)
[2017-09-25] MEDS ORDERED: FILGRASTIM INJ 480 MCG in DEXTROSE 5% IN WATER INJ 50 ML IV SCH ×2 (14:00)
[2017-09-25 14:57] LABS: ALPHA-1-ANTITRYPSIN 124 mg/dL (100 - 190)
--- NOTE | 2017-09-25 15:11 | HHI.GIFU ---
Subjective Remarks Pt OOB to chair. per EMR he will go to rehab but he seems unaware of this. No complaints. blood transfusing. (Jocelyn Tan) Objective Vitals I&O Vital Signs Date Time Temp Pulse Resp B/P (MAP) Pulse Ox O2 Delivery O2 Flow Rate FiO2 09/25/17 13:04 98.4 68 18 139/81 97 09/25/17 12:50 98.3 73 20 148/90 96 09/25/17 12:00 72 09/25/17 11:34 98.3 68 18 137/84 (101) 97 09/25/17 09:30 Room Air 09/25/17 08:20 98.2 72 20 138/74 (95) 95 09/25/17 07:00 69 09/25/17 05:23 98.1 71 20 133/69 (90) 95 09/25/17 04:11 70 09/25/17 00:06 79 09/25/17 00:06 93 Room Air 09/25/17 00:00 98.7 79 20 137/75 (95) 93 09/24/17 20:35 92 21 09/24/17 20:30 98.2 74 16 130/63 (85) 94 09/24/17 20:07 77 09/24/17 17:52 97.6 75 18 133/77 (95) 94 09/24/17 16:00 74 09/24/17 15:59 97.3 72 18 192/99 (130) 94 I/O 09/24/17 09/24/17 09/24/17 09/25/17 09/25/17 09/25/17 07:00 15:00 23:00 07:00 15:00 23:00 Intake Total 480 ml 100 ml 750 ml 300 ml 100 ml Output Total 2250 ml 1000 ml 2500 ml 1150 ml Balance -1770 ml -900 ml -1750 ml -850 ml 100 ml Intake Oral 480 ml 750 ml 300 ml IV Total 100 ml 100 ml Output Urine Total 2250 ml 1000 ml 2500 ml 1150 ml # Bowel Movements 1 Laboratory Laboratory Tests Test 09/25/17 05:37 White Blood Count 2.9 Red Blood Count 2.28 Hemoglobin 6.8 Hematocrit 19.7 Mean Corpuscular Volume 86.2 Mean Corpuscular Hemoglobin 30.0 Mean Corpuscular Hemoglobin Concent 34.8 Red Cell Distribution Width 14.5 Platelet Count 22 Mean Platelet Volume 9.3 Neutrophils (%) (Auto) 84.8 Lymphocytes (%) (Auto) 5.9 Monocytes (%) (Auto) 8.9 Eosinophils (%) (Auto) 0.1 Basophils (%) (Auto) 0.3 Neutrophils # (Auto) 2.4 Lymphocytes # (Auto) 0.2 Monocytes # (Auto) 0.3 Eosinophils # (Auto) 0.0 Basophils # (Auto) 0.0 CBC Comment AUTO DIFF Differential Total Cells Counted 100 Neutrophils % (Manual) 67 Band Neutrophils % 13 Lymphocytes % 2 Monocytes % 6 Basophils % 1 Neutrophils # (Manual) 2.6 Metamyelocytes 6 Myelocytes 5 Differential Comment FINAL DIFF MANUAL Toxic Granulation 1+ Platelet Estimate LOW Platelet Morphology Comment NORMAL Blood Urea Nitrogen 27 Creatinine 0.90 Random Glucose 127 Total Protein 5.2 Albumin 3.1 Calcium Level 7.5 Phosphorus Level 2.5 Magnesium Level 1.7 Alkaline Phosphatase 100 Aspartate Amino Transf (AST/SGOT) 9 Alanine Aminotransferase (ALT/SGPT) 29 Total Bilirubin 1.8 Direct Bilirubin 0.9 Sodium Level 145 Potassium Level 3.1 Chloride Level 106 Carbon Dioxide Level 30.8 Anion Gap 8 Estimat Glomerular Filtration Rate 83 Indirect Bilirubin 0.9 Date/Time Source Procedure Growth Status 09/08/17 13:20 Blood Peripheral Aerobic Blood Culture - Final NO GROWTH IN 5 DAYS Complete 09/08/17 13:20 Blood Peripheral Anaerobic Blood Culture - Final NO GROWTH IN 5 DAYS Complete Imaging Last Impressions Liver Ultrasound 09/20/17 0000 Signed Impressions: Service Date/Time: September 16:29 - CONCLUSION: 1. Cholecystectomy. 2. Complex cyst right kidney measures 4.4 cm. 3. Splenomegaly. Srikanth Ambrosio MD Chest X-Ray 09/05/17 0000 Signed Impressions: Service Date/Time: Tuesday, September 05, 2017 01:50 - CONCLUSION: 1. Right PICC line in superior vena cava. Subsegmental basilar airspace disease. No effusion or pneumothorax. Cory Camarena MD PICC Line Insertion 09/04/17 0600 Signed Impressions: Service Date/Time: Monday, September 04, 2017 15:12 - CONCLUSION: 1. Uncomplicated central venous Power PICC line placement. 2. The PICC line can be used immediately. Santy Burciaga Jr., MD Lumbar Puncture Fluoroscopy 09/04/17 0000 Signed Impressions: Service Date/Time: Monday, September 04, 2017 15:12 - CONCLUSION: Uncomplicated fluoroscopically guided lumbar puncture with pressures as above. Intrathecal methotrexate was administered. Santy Burciaga Jr., MD Chest CT 09/01/17 0000 Signed Impressions: Service Date/Time: Friday, September 01, 2017 16:48 - CONCLUSION: 1. No definite evidence for metastatic disease to the thorax. 2. 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 3. Scattered atelectasis and scarring in the lungs. 4. Moderate coronary calcifications. Cory Camarena MD Abdomen/Pelvis CT 09/01/17 0000 Signed Impressions: Service Date/Time: Friday, September 01, 2017 16:48 - CONCLUSION: 1. Post surgical changes with findings of cholecystectomy and prostatectomy. 2. Scattered diverticular disease of the colon without diverticulitis. 3. Lobulated cyst in the upper poles of both kidneys with some calcification on the left. 4. Retroperitoneal fat herniates through the left hemidiaphragm into the posterior left lung base. 5. No acute intraperitoneal or pelvic process to explain current clinical symptoms Gavin Lynn MD Bone Biopsy CT 08/30/17 1535 Signed Impressions: Service Date/Time: August 16:19 - CONCLUSION: 1. Uncomplicated CT guided bone marrow aspirate. 2. Uncomplicated CT guided bone marrow biopsy. Srikanth Ambrosio MD Thoracic Spine CT 08/30/1799 Signed Impressions: Service Date/Time: August 01:37 - CONCLUSION: 1. No fracture, subluxation or other acute abnormality of the thoracic spine. 2. Scoliosis and mild multifocal degenerative changes as above. 3. Complex appearing cystic structures of the upper poles of both kidneys. Comparison to any previous outside facility studies is recommended to confirm chronicity and stability. Contrast enhanced study of the abdomen suggested if felt clinically indicated, preferably MRI if there are no contraindications. Tim Jones MD Lumbar Spine CT 08/30/17 0100 Signed Impressions: Service Date/Time: August 01:37 - CONCLUSION: 1. No acute fracture or acute subluxation of the lumbar spine. 2. 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 3. Mild spinal and bilateral foraminal stenosis at L4/L5. 4. Mild right and moderate left foraminal stenosis at L5/S1. 5. Benign vertebral body hemangioma of L1. No concerning lumbar spine bone lesion. Tim Jones MD Head CT 08/30/17 0100 Signed Impressions: Service Date/Time: August 01:37 - CONCLUSION: Small frontal maddy-falcine subdural blood is unchanged. Tim Jones MD Carotid Artery Ultrasound 08/30/17 0000 Signed Impressions: Service Date/Time: August 07:52 - CONCLUSION: 1. Diffuse calcified plaque throughout carotid arteries bilaterally with resultant moderate, 50-69%%, stenosis of the internal carotid arteries bilaterally and likely moderate stenosis of the left common carotid artery. 2. Antegrade vertebral artery flow bilaterally. Lopez Taylor MD Brain MRI 08/30/17 0000 Signed Impressions: Service Date/Time: August 09:27 - CONCLUSION: 1. Right frontal parafalcine abnormality on CT exam corresponds to a small meningioma. No definitive intra-or extra-axial hemorrhage. 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 (Jocelyn Tan [facility]) Assessment and Plan Plan Assessment: - Anemia- normocytic- on admission H/H was 7.8/23.2 S/P 2 U PRBCs currently 8.6/ 24.3 Pt does report one dark stool, had taken Pepto-Bismol prior. Emesis on day of admission. with similar symptoms and diarrhea, after they both ate Bone-fish grill. Hematology following- bone marrow biopsy done yesterday- results pending. Abs retic-15 Retic count-0.7 Haptoglobin-129 [id number] Pt reports last EGD and colonoscopy done 2 years ago Bone marrow biopsy revealed Burkitts lymphoma- oncology following - Thrombocytopenia - platelets 5 on admission, now S/P 3 U platelets currently 48 - History of ID S/P stent placement x 2 in 2003- only on ASA at home- previously on Plavix. - Abnormal imaging- MRI brain --> Right frontal parafalcine abnormality on CT exam corresponds to a small meningioma. No definitive intro or extra-axial hemorrhage. Pt with complaints of dizziness on arrival RECONSULT for hyperbilirubinemia T bili has been mildly elevated but noted to be 4.4 yesterday Fractionated: Direct bilirubin-2.8 Indirect-1.6 Elevation in AST and Alk phos also noted US liver (09/20) --> Cholecystectomy. Complex cyst right kidney measures 4.4 cm. Splenomegaly. (09/23) T bili trending down, LFTs WNL, alk phos trending down. Pt with no GI complaints at this time. Pt receiving daily platelets and PRBCs per oncology. Elevation in T bili is likely multifactorial hemolysis, chemotherapy treatment, possible cholestasis secondary to medication 09/24/17 no GI complaints. LFTs trending down. indirect bili > direct, 2/2 hemolysis, multifactorial? liver w/u is pending. 09/25/17 liver w/u pending. LFTs trending down. pt going to rehab after getting port, per heme/onc Plan mgmt per hem onc monitor LFTs await liver w/u supportive care if d/c before liver w/u complete can obtain results of liver w/u from OR GI will sign off. Please reconsult as needed. Patient has been seen and examined by myself and and myself and this note is on her behalf (Jocelyn Tan) Physician Comments agree with above (Melba Hong MD) Jocelyn Tan September 25, 2017 15:11 Melba Hong MD September 25, 2017 17:02
[2017-09-25] MEDS ORDERED: POTASSIUM CHLORIDE 10 MEQ CONTROLLED RELEASE TAB PO ONE (15:15)
--- NOTE | 2017-09-25 15:19 | HHI.PR ---
Subjective Remarks Patient says he is feeling well. Standing up because he says it feels good to stand. Denies any chest pain or shortness of breath. Denies nausea or vomiting. Denies abdominal pain. Denies bleeding. Objective Vital Signs Date Time Temp Pulse Resp B/P (MAP) Pulse Ox O2 Delivery O2 Flow Rate FiO2 09/25/17 13:04 98.4 68 18 139/81 97 09/25/17 12:50 98.3 73 20 148/90 96 09/25/17 12:00 72 09/25/17 11:34 98.3 68 18 137/84 (101) 97 09/25/17 09:30 Room Air 09/25/17 08:20 98.2 72 20 138/74 (95) 95 09/25/17 07:00 69 09/25/17 05:23 98.1 71 20 133/69 (90) 95 09/25/17 04:11 70 09/25/17 00:06 79 09/25/17 00:06 93 Room Air 09/25/17 00:00 98.7 79 20 137/75 (95) 93 09/24/17 20:35 92 21 09/24/17 20:30 98.2 74 16 130/63 (85) 94 09/24/17 20:07 77 09/24/17 17:52 97.6 75 18 133/77 (95) 94 09/24/17 16:00 74 09/24/17 15:59 97.3 72 18 192/99 (130) 94 I/O 09/24/17 09/24/17 09/24/17 09/25/17 09/25/17 09/25/17 07:00 15:00 23:00 07:00 15:00 23:00 Intake Total 480 ml 100 ml 750 ml 300 ml 100 ml Output Total 2250 ml 1000 ml 2500 ml 1150 ml Balance -1770 ml -900 ml -1750 ml -850 ml 100 ml Intake Oral 480 ml 750 ml 300 ml IV Total 100 ml 100 ml Output Urine Total 2250 ml 1000 ml 2500 ml 1150 ml # Bowel Movements 1 Result Diagram: 09/25/17 0537 09/25/17 0537 Objective Remarks GENERAL: Patient standing up using walker in front of chair. appears comfortable. SKIN: Warm and dry. HEAD: Normocephalic. EYES: No scleral icterus. No injection or drainage. NECK: Supple, trachea midline. No JVD. CARDIOVASCULAR: Regular rate and rhythm without murmurs, gallops, or rubs. RESPIRATORY: Breath sounds equal bilaterally. No accessory muscle use. GASTROINTESTINAL: Abdomen soft, non-tender, nondistended. MUSCULOSKELETAL: No cyanosis. 3+ edema bilateral lower extremities, about the same as yesterday. No blistering or broken skin. BACK: Nontender without obvious deformity. No CVA tenderness. A/P Assessment and Plan === 09/25/17 //Hypokalemia. 3.1. Slightly improved. Replace with six 10 MEQ tabs. //Hypophosphatemia. resolved after placement monitor and replace as necessary. //Hypernatremia. Sodium 145 improving. Continue D5 hypotonic fluids. Recheck tomorrow. //Anasarca. Continue scheduled albumin. Continue Jensen for monitoring output. Continue scheduled albumin. Minimize fluids. //Anemia 7.1. Transfusion as needed by oncology. Appreciate assistance. //Transaminitis. Hyperbilirubinemia. = Bilirubinemia improving. 1.8.. Could be due to iron overload. Appreciate GI assistance. LFTs improving slightly. //Thrombocytopenia platelets of 22. Improving. No signs of bleeding regimen as per hematology. //Oral irritation. Improved with lidocaine as needed. cont lidocaine and Magic mouthwash. //Gram-negative bacteremia. Continue antibiotics as per ID. 72y/o male with anemia + thrombocytopenia. History of prostate cancer, status post prostatectomy, coronary artery disease, s/p stent placement. 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 //Septic shock - resolved //E coli and strep viridans bacteremia - repeat blood cx are negative to date. Etiology of E coli in blood - No evidence of a UTI based on symptoms. ID consulted for further recommendation. Continue IV aztreonam for now.Echocardiogram shows an EF of 55-60% with moderate concentric left ventricular hypertrophy. No vegetation reported. //Tumor lysis syndrome - Resolved. Allopurinol on hold. Monitor closely. //Hyperkalemia now hypokalemia and hypocalcemia.-Continue to replace. Monitor closely. //LUCA/hypernatremia- creatinine trending down, good urine output. Continue half normal saline due to hypernatremia. Monitor BMPs every 6 hours. Cautioned to not overcorrect quickly sodium levels. Encourage p.o. hydration ( 250ml water q4-6hrs while awake). Nephrology following, appreciate recs. Pt has been started on diuril. Monitor Cr closely. //Metabolic acidosis - improved //Pancytopenia - requiring multiple transfusions ( ~daily). Transfusion and G -CSF per oncology. Transfuse 1 unit packed red blood cells and 1U PLT today 09/20/17 Transfuse to keep platelets greater than 10,000, hemoglobin greater than 7.5 Continue Neupogen //Burkitt's lymphoma receiving chemo. Management per hematology //History of prostate cancer status post XRT //Diarrhea - seems to have resolved, monitor. //Oral thrush/ mucositis give magic wash, //Scrotal edema/excoriations slight improved. Give lasix 20 mg IV scheduled and albumin IV. Monitor UOP. , monitor closely kidney function. Replenish electrolytes. Consult wound care, discussed with [facility] wound care and with the nurse . Recommendation sfor wound care. Scrotal tears noted, pt having pain with urination due to urine touching those open tears and burning. Dr. Duron doesn't recommend placing a jensen as he is at high risk for bleeding due to his low plt count and also high risk for infection due to his neutropenia. Desitin cream and lidocaine jelly to be applied. Keep pt dry as much as possible. Place a condom catheter, will do but at this time, edema is too much and this cannot be done. Nystatin powder also ordered Patient however with significant scrotal edema and pain, has a Jensen placed with orange urine, fairly good OP. //Insomnia: Add temazepam Discharge Planning Continue to replace electrolytes Transfusing to keep hemoglobin and platelets within acceptable limits CM assisting with DC planning as family wishes to pursue care in [place] has a plane ticket for 09/22/17 Discussed with oncology today. Krunal Downs MD September 25, 2017 15:19
--- NOTE | 2017-09-25 15:26 | HHI.NSPN ---
History Chief Complaint: None Interval History The patient is sitting up in the chair when seen this afternoon. He states that he is doing good. He denies any headache or dizziness and has no extremity pain , tingling or weakness. He also denies any shortness of breath, chest pain, palpitations, irregular heartbeat, abdominal pain, nausea or vomiting. The only numbness he has is to the fingertips when they are cold. He has no sensorimotor deficits noted upon examination. He is being transfused one unit of packed red blood cells. Exam Results 09/23/17 09/23/17 09/24/17 09/24/17 09/25/17 09/25/17 06:00 18:00 06:00 18:00 06:00 18:00 Intake Total 1120 ml 2300 ml 580 ml 1050 ml 100 ml Output Total 3450 ml 3675 ml 3250 ml 3650 ml Balance -2330 ml -1375 ml -2670 ml -2600 ml 100 ml Intake Oral 720 ml 1640 ml 480 ml 1050 ml IV Total 100 ml 100 ml Packed Cells 400 ml 400 ml Platelets 260 ml Output Urine Total 3450 ml 3675 ml 3250 ml 3650 ml Bladder Scan Volume Amount # Bowel Movements 1 1 Vital Signs Date Time Temp Pulse Resp B/P (MAP) Pulse Ox O2 Delivery O2 Flow Rate FiO2 09/25/17 13:04 98.4 68 18 139/81 97 09/25/17 12:50 98.3 73 20 148/90 96 09/25/17 12:00 72 09/25/17 11:34 98.3 68 18 137/84 (101) 97 09/25/17 09:30 Room Air 09/25/17 08:20 98.2 72 20 138/74 (95) 95 09/25/17 07:00 69 09/25/17 05:23 98.1 71 20 133/69 (90) 95 09/25/17 04:11 70 09/25/17 00:06 79 09/25/17 00:06 93 Room Air 09/25/17 00:00 98.7 79 20 137/75 (95) 93 09/24/17 20:35 92 21 09/24/17 20:30 98.2 74 16 130/63 (85) 94 09/24/17 20:07 77 09/24/17 17:52 97.6 75 18 133/77 (95) 94 09/24/17 16:00 74 09/24/17 15:59 97.3 72 18 192/99 (130) 94 09/24/17 12:00 70 09/24/17 09:06 98.5 79 18 138/77 (97) 92 09/24/17 09:00 Room Air 09/24/17 08:00 73 09/24/17 04:47 97.4 67 18 134/72 (92) 93 09/24/17 04:05 75 09/24/17 00:42 16 09/24/17 00:00 98.5 87 18 138/64 (88) 93 09/23/17 23:03 79 09/23/17 20:50 98.3 79 18 147/72 (97) 93 09/23/17 20:50 Room Air 09/23/17 20:03 88 09/23/17 19:20 95 Nasal Cannula 2.00 09/23/17 16:00 98.0 85 20 153/84 (107) 94 09/23/17 13:00 97.6 85 20 145/78 95 09/23/17 12:28 98.0 77 20 144/74 94 09/23/17 11:37 98.1 77 20 125/72 95 09/23/17 11:17 98.2 82 18 123/70 94 09/23/17 08:45 Room Air 09/23/17 08:06 98.7 87 18 143/77 (99) 93 09/23/17 04:25 98.9 88 20 141/75 (97) 93 09/23/17 03:01 82 09/23/17 00:04 97 09/23/17 00:00 99.0 94 20 125/67 (86) 92 09/22/17 20:55 95 Nasal Cannula 2.00 09/22/17 20:45 Room Air 09/22/17 20:42 97.7 87 15 134/76 (95) 93 09/22/17 20:05 90 09/22/17 15:52 98.0 80 20 140/77 94 09/22/17 15:16 98.0 81 20 144/79 94 Physical Examination GENERAL: Awake & alert sitting in chair watching TV. Affect normal. Readily interacts. No apparent distress. SKIN: Warm, dry & intact w/o any evident rashes, ulcerations or lesions. Steri- strips to right jaw. HEENT: Normocephalic, steri-strips to right jaw. PERRLA 3 mm brisk, EOMI. MMM & pink, tongue midline to protrusion. RESPIRATORY: CTAB w/o W/R/R, equal excursion, non-laboured, on RA. CARDIOVASCULAR: S1S2 w/RRR w/o M/G/R. Pedal edema bilaterally. GASTROINTESTINAL: Abdomen soft, non-tender, positive bowel sounds. MUSCULOSKELETAL: DERAS spontaneously & purposefully w/o difficulty. Extremities NTTP. No evident clubbing or deformity. NEUROLOGICAL: AAOx3. Speech clear & appropriate. Follows simple commands. CN II through XII appear grossly intact. Sensation intact to light touch to all extremities. Motor strength is 5/5 to all major flexion & extension muscle groups of the extremities. Lab, Micro, Other Results Laboratory Tests Test 09/23/17 06:10 09/23/17 14:20 09/24/17 05:00 09/25/17 05:37 White Blood Count 2.3 TH/MM3 4.9 TH/MM3 2.9 TH/MM3 Red Blood Count 2.27 MIL/MM3 2.40 MIL/MM3 2.28 MIL/MM3 Hemoglobin 6.7 GM/DL 7.1 GM/DL 6.8 GM/DL Hematocrit 19.6 % 20.7 % 19.7 % Mean Corpuscular Volume 86.3 FL 86.2 FL 86.2 FL Mean Corpuscular Hemoglobin 29.5 PG 29.7 PG 30.0 PG Mean Corpuscular Hemoglobin Concent 34.2 % 34.4 % 34.8 % Red Cell Distribution Width 14.6 % 14.5 % 14.5 % Platelet Count 11 TH/MM3 19 TH/MM3 22 TH/MM3 Mean Platelet Volume 8.2 FL 8.2 FL 9.3 FL CBC Comment AUTO DIFF AUTO DIFF AUTO DIFF Differential Total Cells Counted 100 100 100 Neutrophils % (Manual) 60 % 70 % 67 % Band Neutrophils % 13 % 20 % 13 % Lymphocytes % 11 % 4 % 2 % Monocytes % 7 % 5 % 6 % Basophils % 3 % 1 % Neutrophils # (Manual) 1.8 TH/MM3 4.5 TH/MM3 2.6 TH/MM3 Metamyelocytes 5 % 1 % 6 % Promyelocytes 1 % Nucleated Red Blood Cells 2 /100 WBC 2 /100 WBC Differential Comment FINAL DIFF MANUAL FINAL DIFF MANUAL FINAL DIFF MANUAL Toxic Granulation 3+ 1+ 1+ Dohle Bodies PRESENT Platelet Estimate RARE LOW LOW Platelet Morphology Comment NORMAL NORMAL NORMAL Blood Urea Nitrogen 38 MG/DL 32 MG/DL 27 MG/DL Creatinine 1.04 MG/DL 1.00 MG/DL 0.90 MG/DL Random Glucose 145 MG/DL 125 MG/DL 127 MG/DL Total Protein 4.8 GM/DL 5.1 GM/DL 5.2 GM/DL Albumin 2.6 GM/DL 2.8 GM/DL 3.1 GM/DL Calcium Level 7.7 MG/DL 7.4 MG/DL 7.5 MG/DL Phosphorus Level 1.2 MG/DL 2.1 MG/DL 2.5 MG/DL Magnesium Level 1.6 MG/DL 1.7 MG/DL Alkaline Phosphatase 137 U/L 133 U/L 100 U/L Aspartate Amino Transf (AST/SGOT) 18 U/L 19 U/L 9 U/L Alanine Aminotransferase (ALT/SGPT) 42 U/L 39 U/L 29 U/L Total Bilirubin 2.3 MG/DL 2.8 MG/DL 1.8 MG/DL Direct Bilirubin 1.2 MG/DL 1.3 MG/DL 0.9 MG/DL Sodium Level 149 MEQ/L 148 MEQ/L 145 MEQ/L Potassium Level 3.1 MEQ/L 3.0 MEQ/L 3.1 MEQ/L Chloride Level 108 MEQ/L 107 MEQ/L 106 MEQ/L Carbon Dioxide Level 34.1 MEQ/L 32.5 MEQ/L 30.8 MEQ/L Anion Gap 7 MEQ/L 9 MEQ/L 8 MEQ/L Estimat Glomerular Filtration Rate 70 ML/MIN 73 ML/MIN 83 ML/MIN Indirect Bilirubin 1.1 MG/DL 1.5 MG/DL 0.9 MG/DL Iron Level 52 MCG/DL Total Iron Binding Capacity 111 MCG/DL Percent Iron Saturation 47.0 % Ferritin 1633 NG/ML Rouyf-[id number] 124 mg/dL Anti-Nuclear Antibody Screen NEG Anti-Smooth Muscle Antibody Negative Neutrophils (%) (Auto) 90.2 % 84.8 % Lymphocytes (%) (Auto) 4.1 % 5.9 % Monocytes (%) (Auto) 5.3 % 8.9 % Eosinophils (%) (Auto) 0.1 % 0.1 % Basophils (%) (Auto) 0.3 % 0.3 % Neutrophils # (Auto) 4.4 TH/MM3 2.4 TH/MM3 Lymphocytes # (Auto) 0.2 TH/MM3 0.2 TH/MM3 Monocytes # (Auto) 0.3 TH/MM3 0.3 TH/MM3 Eosinophils # (Auto) 0.0 TH/MM3 0.0 TH/MM3 Basophils # (Auto) 0.0 TH/MM3 0.0 TH/MM3 Protein Corrected Calcium 8.5 MG/DL Myelocytes 5 % Medical Decision Making Impression and Plan Impression: Burkitt's Lymphoma with COMB SETTER involvement The patient is doing well and remains neurologically intact. Reviewed labs for today. Haemoglobin level 6.8 and being transfused when seen. Platelet count 22. Potassium 3.1. eGFR improved. Plan: Primary management per Hospitalist. Ommaya reservior per Dr Cho. Neuro checks. Monitor platelet level. Sharif Hester September 25, 2017 15:26
--- NOTE | 2017-09-25 15:47 | HHI.NPPN ---
Subjective General Problems: Edema Renal Failure: Acute History of Present Illness Patient is a 72 year old male with a past medical history of prostate cancer, asthma, gastroesophageal reflux, Muñoz's esophagus,hypertension, new anemia, new thrombocytopenia, rotator cuff injury, and back pain. 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 Patient was receiving Rituxan last night and developed a reaction with low grade temperature, pain, and tremor. Plan to transfer patient to intensive care unit as patient is at risk for fluid overload with blood transfusions and acute kidney injury. Nephrology is consulted for acute kidney injury with creatinine of 2.44 with a admission creatinine of 0.99. HGB is low at 7.2, Plt of 27, NA 148, CO2 14.5. Patient is resting comfortably now with his only complaint is that is dizzy with ambulation. Additional Remarks Patient up out of bed in chair. Legs dependent position. Edema is improving but still persistent. Creatinine is stable. (Janet Ribeiro) Review of Systems Respiratory Respiratory Remarks Denies any SOB (Janet Ribeiro) Cardiovascular Cardiac: Edema Cardiac Remarks Denies any CP (Janet Ribeiro) Gastrointestinal GI Remarks Denies any abdominal pain (Janet Ribeiro) Objective Data Data 09/25/17 09/26/17 19:00 07:00 Intake Total 100 ml Balance 100 ml IV Total 100 ml Vital Signs Date Time Temp Pulse Resp B/P (MAP) Pulse Ox O2 Delivery O2 Flow Rate FiO2 09/25/17 15:31 68 09/25/17 13:04 98.4 68 18 139/81 97 09/25/17 12:50 98.3 73 20 148/90 96 09/25/17 12:00 72 09/25/17 11:34 98.3 68 18 137/84 (101) 97 09/25/17 09:30 Room Air 09/25/17 08:20 98.2 72 20 138/74 (95) 95 09/25/17 07:00 69 09/25/17 05:23 98.1 71 20 133/69 (90) 95 09/25/17 04:11 70 09/25/17 00:06 79 09/25/17 00:06 93 Room Air 09/25/17 00:00 98.7 79 20 137/75 (95) 93 09/24/17 20:35 92 21 09/24/17 20:30 98.2 74 16 130/63 (85) 94 09/24/17 20:07 77 09/24/17 17:52 97.6 75 18 133/77 (95) 94 09/24/17 16:00 74 09/24/17 15:59 97.3 72 18 192/99 (130) 94 (Janet Ribeiro) -: 09/25/17 0537 09/25/17 0537 Imaging Last Impressions Liver Ultrasound 09/20/17 0000 Signed Impressions: Service Date/Time: September 16:29 - CONCLUSION: 1. Cholecystectomy. 2. Complex cyst right kidney measures 4.4 cm. 3. Splenomegaly. Srikanth Ambrosio MD Chest X-Ray 09/05/17 0000 Signed Impressions: Service Date/Time: Tuesday, September 05, 2017 01:50 - CONCLUSION: 1. Right PICC line in superior vena cava. Subsegmental basilar airspace disease. No effusion or pneumothorax. Cory Camarena MD PICC Line Insertion 09/04/17 0600 Signed Impressions: Service Date/Time: Monday, September 04, 2017 15:12 - CONCLUSION: 1. Uncomplicated central venous Power PICC line placement. 2. The PICC line can be used immediately. Santy Burciaga Jr., MD Lumbar Puncture Fluoroscopy 09/04/17 0000 Signed Impressions: Service Date/Time: Monday, September 04, 2017 15:12 - CONCLUSION: Uncomplicated fluoroscopically guided lumbar puncture with pressures as above. Intrathecal methotrexate was administered. Santy Burciaga Jr., MD Chest CT 09/01/17 0000 Signed Impressions: Service Date/Time: Friday, September 01, 2017 16:48 - CONCLUSION: 1. No definite evidence for metastatic disease to the thorax. 2. 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 3. Scattered atelectasis and scarring in the lungs. 4. Moderate coronary calcifications. Cory Camarena MD Abdomen/Pelvis CT 09/01/17 0000 Signed Impressions: Service Date/Time: Friday, September 01, 2017 16:48 - CONCLUSION: 1. Post surgical changes with findings of cholecystectomy and prostatectomy. 2. Scattered diverticular disease of the colon without diverticulitis. 3. Lobulated cyst in the upper poles of both kidneys with some calcification on the left. 4. Retroperitoneal fat herniates through the left hemidiaphragm into the posterior left lung base. 5. No acute intraperitoneal or pelvic process to explain current clinical symptoms Gavin Lynn MD Bone Biopsy CT 08/30/17 1535 Signed Impressions: Service Date/Time: August 16:19 - CONCLUSION: 1. Uncomplicated CT guided bone marrow aspirate. 2. Uncomplicated CT guided bone marrow biopsy. Srikanth Ambrosio MD Thoracic Spine CT 08/30/17 0100 Signed Impressions: Service Date/Time: August 01:37 - CONCLUSION: 1. No fracture, subluxation or other acute abnormality of the thoracic spine. 2. Scoliosis and mild multifocal degenerative changes as above. 3. Complex appearing cystic structures of the upper poles of both kidneys. Comparison to any previous outside facility studies is recommended to confirm chronicity and stability. Contrast enhanced study of the abdomen suggested if felt clinically indicated, preferably MRI if there are no contraindications. Tim Jones MD Lumbar Spine CT 08/30/17 0100 Signed Impressions: Service Date/Time: August 01:37 - CONCLUSION: 1. No acute fracture or acute subluxation of the lumbar spine. 2. 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 3. Mild spinal and bilateral foraminal stenosis at L4/L5. 4. Mild right and moderate left foraminal stenosis at L5/S1. 5. Benign vertebral body hemangioma of L1. No concerning lumbar spine bone lesion. Tim Jones MD Head CT 08/30/17 0100 Signed Impressions: Service Date/Time: August 01:37 - CONCLUSION: Small frontal maddy-falcine subdural blood is unchanged. Tim Jones MD Carotid Artery Ultrasound 08/30/17 0000 Signed Impressions: Service Date/Time: August 07:52 - CONCLUSION: 1. Diffuse calcified plaque throughout carotid arteries bilaterally with resultant moderate, 50-69%%, stenosis of the internal carotid arteries bilaterally and likely moderate stenosis of the left common carotid artery. 2. Antegrade vertebral artery flow bilaterally. Lopez Taylor MD Brain MRI 08/30/17 0000 Signed Impressions: Service Date/Time: August 09:27 - CONCLUSION: 1. Right frontal parafalcine abnormality on CT exam corresponds to a small meningioma. No definitive intra-or extra-axial hemorrhage. Lopez Taylor MD (Janet Ribeiro) Physical Exam General Appearance: No Acute Distress, Comfortable, Anxious (Janet Ribeiro) Throat Throat Exam: Oral Mucosa [place] & Moist (Janet Ribeiro) Pulmonary Resp Exam: Breath Sounds Equal, No Distress (Janet Ribeiro) Cardiology CV Exam: Regular, Normal Sinus Rhythm (Janet Ribeiro) Gastrointestinal/Abdomen GI Exam: Soft, Non-Tender, Distended (Janet Ribeiro) Genitourinary Exam: Flank Non-Tender (Janet Ribeiro) Integumentary Skin Exam: Clear, Warm (Janet Ribeiro) Extremeties Extremities Exam: Moderate Edema, Pitting Edema, Dependent Edema (Janet Ribeiro) Neurologic Neuro Exam: Alert, Awake, Oriented (Janet Ribeiro) Psychiatric Psych Exam: Appropriate Responses (Janet Ribeiro) Assessment/Plan Electrolyte Assessment: Hypernatremia, Hypokalemia Problem List: (1) Acute kidney injury ICD Codes: N17.9 - Acute kidney failure, unspecified Plan: Acute kidney injury with creatinine of 2.44 when consulted. Acute kidney injury most likely related to tumor lysis. On admission creatinine of 0.99. CT of abdomen on the with kidney with normal in size and shape. There is no mass, stone or hydronephrosis. Lobulated cysts in the upper poles of both kidneys with some benign-appearing calcification on the left Creatinine stable Plan Will monitor renal panel periodically Avoid nephrotoxins. Encouraged to elevate legs throughout day Continue Lasix to 40 mg BID and albumin Continue Aldactone BID D5 W infusing for hypernatremia (2) B-cell lymphoma ICD Codes: C85.10 - Unspecified B-cell lymphoma, unspecified site Status: Acute Plan: Oncology managing (3) Anemia ICD Codes: D64.9 - Anemia, unspecified Status: Acute Plan: Monitoring (Janet Ribeiro) Problem List: (1) Acute kidney injury ICD Codes: N17.9 - Acute kidney failure, unspecified Plan: Acute kidney injury with creatinine of 2.44 when consulted. Acute kidney injury most likely related to tumor lysis. On admission creatinine of 0.99. CT of abdomen on the with kidney with normal in size and shape. There is no mass, stone or hydronephrosis. Lobulated cysts in the upper poles of both kidneys with some benign-appearing calcification on the left Creatinine stable Plan Will monitor renal panel periodically Avoid nephrotoxins. Encouraged to elevate legs throughout day Continue Lasix to 40 mg BID and albumin Continue Aldactone BID D5 W infusing for hypernatremia. Patient seen and examined, agree with above. Getting blood transfusion, follow the BMP. (2) B-cell lymphoma ICD Codes: C85.10 - Unspecified B-cell lymphoma, unspecified site Status: Acute Plan: Oncology managing (3) Anemia ICD Codes: D64.9 - Anemia, unspecified Status: Acute Plan: Monitoring (Demi Mendez MD) Problem Qualifiers (1) Anemia: Qualified Codes: D64.9 - Anemia, unspecified Janet Ribeiro September 25, 2017 15:47 Demi Mendez MD September 25, 2017 21:28
--- NOTE | 2017-09-25 16:01 | HHI.NSPN ---
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 Rico is a 72-year-old man with multiple medical problems, including history of prostate cancer, status post prostatectomy, coronary artery disease, status post stent placement. Apparently he has had a recent fall before coming down to [place] and had a rotator cuff injury. He was treatedf with physical therapy. [place] and he developed severe back pain, prompting him to buy Icy Hot compresses. He then went to the urgent care center where he was given a course of anti-inflammatory medication and pain medications He developed progressive shortness of breath. He noticed some bruising over the past week. He lost the hearing in his left ear suddenly. Because of the hearing he went into the urgent care, a second time. He had worsening dizziness with sensation of passing out and therefore came to the emergency room. His platelet count of 5000. He has bruising and petechia on his abdomen. His CT scan of the head showed a small focal region of increased density in the falx concerning for subdural hemorrhage. He denies any focal motor weakness. He denies any sensory loss. No seizure activity. No incontinence of stool or urine. Neurosurgical consultation was requested 08/31. Doing well. No focal weakness. No significant headaches 09/24. 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 He is alert and awake, neurologically stable. Severe persistent thrombocytopenia. Dr Duron giving transfusion of PRBC and platelets Labs, Micro, & Vital Signs Results THIS NOTE REPRESENTS MY ENCOUNTER ON 09/24 DURING ROUNDS Date Time Temp Pulse Resp B/P (MAP) Pulse Ox O2 Delivery O2 Flow Rate FiO2 09/25/17 15:31 68 09/25/17 13:04 98.4 68 18 139/81 97 09/25/17 12:50 98.3 73 20 148/90 96 09/25/17 12:00 72 09/25/17 11:34 98.3 68 18 137/84 (101) 97 09/25/17 09:30 Room Air 09/25/17 08:20 98.2 72 20 138/74 (95) 95 09/25/17 07:00 69 09/25/17 05:23 98.1 71 20 133/69 (90) 95 09/25/17 04:11 70 09/25/17 00:06 79 09/25/17 00:06 93 Room Air 09/25/17 00:00 98.7 79 20 137/75 (95) 93 09/24/17 20:35 92 21 09/24/17 20:30 98.2 74 16 130/63 (85) 94 09/24/17 20:07 77 09/24/17 17:52 97.6 75 18 133/77 (95) 94 09/24/17 16:00 74 09/24/17 15:59 97.3 72 18 192/99 (130) 94 09/26/17 07:00 Intake Total 100 ml Balance 100 ml Constitutional THIS NOTE REPRESENTS MY ENCOUNTER ON 09/24 DURING ROUNDS Vital Signs Date Time Temp Pulse Resp B/P (MAP) Pulse Ox O2 Delivery O2 Flow Rate FiO2 09/25/17 15:31 68 09/25/17 13:04 98.4 68 18 139/81 97 09/25/17 12:50 98.3 73 20 148/90 96 09/25/17 12:00 72 09/25/17 11:34 98.3 68 18 137/84 (101) 97 09/25/17 09:30 Room Air 09/25/17 08:20 98.2 72 20 138/74 (95) 95 09/25/17 07:00 69 09/25/17 05:23 98.1 71 20 133/69 (90) 95 09/25/17 04:11 70 09/25/17 00:06 79 09/25/17 00:06 93 Room Air 09/25/17 00:00 98.7 79 20 137/75 (95) 93 09/24/17 20:35 92 21 09/24/17 20:30 98.2 74 16 130/63 (85) 94 09/24/17 20:07 77 09/24/17 17:52 97.6 75 18 133/77 (95) 94 09/24/17 16:00 74 09/24/17 15:59 97.3 72 18 192/99 (130) 94 09/26/17 07:00 Intake Total 100 ml Balance 100 ml Physical Exam THIS NOTE REPRESENTS MY ENCOUNTER ON 09/24 DURING ROUNDS GENERAL: Awake & alert sitting in chair watching TV. Affect normal. Readily interacts. No apparent distress. SKIN: Warm, dry & intact w/o any evident rashes, ulcerations or lesions. Steri- strips to right jaw. HEENT: Normocephalic, steri-strips to right jaw. PERRLA 3 mm brisk, EOMI. MMM & pink, tongue midline to protrusion. RESPIRATORY: CTAB w/o W/R/R, equal excursion, non-laboured, on RA. CARDIOVASCULAR: S1S2 w/RRR w/o M/G/R. Pedal edema bilaterally. GASTROINTESTINAL: Abdomen soft, non-tender, positive bowel sounds. MUSCULOSKELETAL: EDRAS spontaneously & purposefully w/o difficulty. Extremities NTTP. No evident clubbing or deformity. NEUROLOGICAL: AAOx3. Speech clear & appropriate. Follows simple commands. CN II through XII appear grossly intact. Sensation intact to light touch to all extremities. Motor strength is 5/5 to all major flexion & extension muscle groups of the extremities. Medications Current Medications THIS NOTE REPRESENTS MY ENCOUNTER ON 09/24 DURING ROUNDS Current Medications Sodium Chloride 1,000 ml @ 125 mls/hr Q8H IV Last administered on 08/29/17at 11 :22; Start 08/29/17 at 11:01; Stop 08/29/17 at 19:00; Status DC Sodium Chloride (NS Flush) 2 ml UNSCH PRN IVF FLUSH AFTER USING IV ACCESS; Start 08/29/17 at 11:15; Stop 08/29/17 at 19:43; Status DC Sodium Chloride 1,000 ml @ 100 mls/hr Q10H IV Last administered on 09/10/17at 07:25; Start 08/29/17 at 16:00; Stop 09/10/17 at 07:53; Status DC Sodium Chloride (NS Flush) 2 ml UNSCH PRN IV FLUSH FLUSH AFTER USING IV ACCESS Last administered on 09/08/17at 23:42; Start 08/29/17 at 15:45 Sodium Chloride (NS Flush) 2 ml BID IV FLUSH Last administered on 09/25/17at 09: 55; Start 08/29/17 at 21:00 Pantoprazole Sodium (Protonix Inj) 40 mg DAILY IV PUSH Last administered on at 09:51; Start 08/30/17 at 09:00 Ondansetron HCl (Zofran Inj) 4 mg Q6H PRN IV PUSH NAUSEA OR VOMITING Last administered on 09/24/17 09:14; Start 08/29/17 at 16:00 Albuterol/ Ipratropium (Duoneb Neb) 1 ampule Q6HR NEB INH Last administered on 09/02/17at 04:22; Start 08/29/17 at 16:00; Stop 09/02/17 at 15:59; Status DC Albuterol/ Ipratropium (Duoneb Neb) 1 ampule Q2HR NEB PRN INH WHEEZING Last administered on 09/04/17at 23:32; Start 08/29/17 at 16:00 Miscellaneous Information 1 Q361D XX ; Start 08/29/17 at 15:45 Chlorhexidine Gluconate (Chlorhexidine 2% Cloth) Taper DAILY@04 TOP Last administered on 09/13/17at 05:13; Start 08/30/17 at 04:00; Stop 08/26/18 at 03:59 Chlorhexidine Gluconate (Chlorhexidine 2% Cloth) 3 pack UNSCH PRN TOP HYGIENIC CARE; Start 08/29/17 at 15:45 Senna/Docusate Sodium (Madina-Colace) 1 tab BID PO Last administered on at 09:15; Start 08/29/17 at 21:00 Magnesium Hydroxide (Milk Of Magnesia Liq) 30 ml Q12H PRN PO Mild constipation ; Start 08/29/17 at 16:00 Sennosides (Senokot) 17.2 mg Q12H PRN PO Moderate constipation; Start 08/29/17 at 16:00 Bisacodyl (Dulcolax Supp) 10 mg DAILY PRN RECTAL SEVERE CONSITIPATION; Start at 16:00 Lactulose (Lactulose Liq) 30 ml DAILY PRN PO SEVERE CONSITIPATION; Start at 16:00 Potassium Chloride 100 ml @ 50 mls/hr Q2H PRN IV For Potassium 2.8 - 3.2 mEq/L ; Start 08/29/17 at 16:00; Stop 09/01/17 at 07:26; Status DC Potassium Chloride 100 ml @ 50 mls/hr Q2H PRN IV For Potassium 2.8 - 3.2 mEq/L ; Start 08/29/17 at 16:00; Stop 09/01/17 at 07:26; Status DC Potassium Bicarb/ Potassium Chloride (K-Lyte Cl Eff) 50 meq UNSCH PRN PO For Potassium 3.3 - 3.5 mEq/L; Start 08/29/17 at 16:00; Stop 09/01/17 at 07:26; Status DC Potassium Chloride 100 ml @ 25 mls/hr UNSCH PRN IV For Potassium 3.3 - 3.5 mEq /L; Start 08/29/17 at 16:00; Stop 09/01/17 at 07:26; Status DC Potassium Chloride 100 ml @ 50 mls/hr Q2H PRN IV For Potassium 3.3 - 3.5 mEq/L ; Start 08/29/17 at 16:00; Stop 09/01/17 at 07:26; Status DC Magnesium Sulfate 4 gm/Sodium Chloride 100 ml @ 50 mls/hr UNSCH PRN IV For Magnesium 0.9 - 1.1 mg/dL; Start 08/29/17 at 16:00; Stop 09/01/17 at 07:26; Status DC Magnesium Oxide (Mag-Ox) 800 mg UNSCH PRN PO For Magnesium 1.2 - 1.6 mg/dL; Start 08/29/17 at 16:00; Stop 09/01/17 at 07:26; Status DC Magnesium Sulfate 2 gm/Sodium Chloride 100 ml @ 50 mls/hr UNSCH PRN IV For Magnesium 1.2 - 1.6 mg/dL; Start 08/29/17 at 16:00; Stop 09/01/17 at 07:26; Status DC Potassium Phosphate (K-Phos) 2,000 mg Q4H PRN PO For Phosphorus < 2.5 mg/dL; Start 08/29/17 at 16:00; Stop 09/01/17 at 07:26; Status DC Sodium Phosphate 30 mmol/Sodium Chloride 250 ml @ 42 mls/hr UNSCH PRN IV For Phosphorus < 2.5 mg/dL; Start 08/29/17 at 16:00; Stop 09/01/17 at 07:26; Status DC Potassium Phosphate (K-Phos) 2,000 mg UNSCH PRN PO/TUBE SEE LABEL COMMENTS; Start 08/29/17 at 16:00; Stop 09/01/17 at 07:26; Status DC Potassium Phosphate 30 mmol/ Sodium Chloride 260 ml @ 42 mls/hr UNSCH PRN IV SEE LABEL COMMENTS; Start 08/29/17 at 16:00; Stop 09/01/17 at 07:26; Status DC Fentanyl Citrate (fentaNYL INJ) 50 mcg Q3H PRN IV PUSH PAIN SCALE 7 TO 10 Last administered on 08/31/17at 15:52; Start 08/29/17 at 20:30; Stop 09/01/17 at 15:51 ; Status DC Albuterol Sulfate (Proair Hfa Inh) 2 puff Q6H PRN INH SHORTNESS OF BREATH Last administered on 09/13/17at 11:05; Start 08/29/17 at 18:00 Amlodipine Besylate (Norvasc) 10 mg DAILY PO Last administered on 09/05/17at 10: 12; Start 08/30/17 at 09:00; Stop 09/20/17 at 13:15; Status DC Non-Formulary Medication 1 puff BID INH ; Start 08/29/17 at 21:00; Status UNV Budesonide/ Formoterol Fumarate (Symbicort 160-4.5 Mcg Inh) 2 puff BID INH Last administered on 09/25/17at 09:51; Start 08/29/17 at 21:00 Gadodiamide (Omniscan Pf Inj) 19 ml STK-MED ONCE IVCONTRAST Last administered on 08/30/17at 09:45; Start 08/30/17 at 09:45; Stop 08/30/17 at 09:46; Status DC Ramipril (Altace) 10 mg DAILY PO Last administered on 09/05/17at 10:12; Start at 14:00; Stop 09/20/17 at 13:15; Status DC Midazolam HCl (Versed Inj) 4 mg STK-MED ONCE .ROUTE Last administered on at 16:12; Start 08/30/17 at 16:12; Stop 08/30/17 at 16:13; Status DC Fentanyl Citrate (fentaNYL INJ) 200 mcg STK-MED ONCE IV Last administered on at 16:12; Start 08/30/17 at 16:12; Stop 08/30/17 at 17:24; Status DC Lidocaine HCl (Xylocaine 1% Inj) 10 ml STK-MED ONCE SQ Last administered on at 17:24; Start 08/30/17 at 17:24; Stop 08/30/17 at 17:26; Status DC Diatrizoate Meglum/ Diatrizoate Sod ( Gastroview Liq) 18 ml ONCE ONCE PO Last administered on 09/01/17at 13:46; Start 09/01/17 at 12:45; Stop 09/01/17 at 12:46; Status DC Magnesium Citrate (Citroma Liq) 300 ml ONCE ONCE PO ; Start 09/02/17 at 16:00; Stop 09/02/17 at 16:00; Status DC Magnesium Citrate (Citroma Liq) 300 ml ONCE ONCE PO ; Start 09/02/17 at 18:00; Stop 09/02/17 at 18:00; Status DC Methylprednisolone Sodium Succinate (SoluMEDROL INJ) 40 mg ONCE PRN IV PUSH Allergic Reaction; Start 09/01/17 at 16:00; Stop 09/08/17 at 15:59; Status DC Morphine Sulfate (Morphine Inj) 2 mg Q4H PRN IV PUSH BREAKTHROUGH PAIN Last administered on 09/17/17at 23:07; Start 09/01/17 at 16:00 Morphine Sulfate (Morphine Inj) 4 mg Q4H PRN IV PUSH Pain 7 to 10 Last administered on 09/15/17at 21:00; Start 09/01/17 at 16:00; Stop 09/16/17 at 11:36; Status DC Iohexol (Omnipaque 350 Inj) 92 ml STK-MED ONCE IVCONTRAST Last administered on 09/01/17at 17:09; Start 09/01/17 at 17:09; Stop 09/01/17 at 17:10; Status DC Sodium Chloride 250 ml @ 15 mls/hr ONCE ONCE IV Last administered on at 17:12; Start 09/02/17 at 12:30; Stop 09/03/17 at 05:09; Status DC Allopurinol (Zyloprim) 300 mg DAILY PO Last administered on 09/03/17at 21:43; Start 09/03/17 at 19:45; Stop 09/04/17 at 14:08; Status DC Sodium Chloride 250 ml @ 15 mls/hr ONCE ONCE IV Last administered on at 05:00; Start 09/04/17 at 05:00; Stop 09/04/17 at 21:39; Status DC Methotrexate Sodium 6 mg/ Sodium Chloride 5 ml/Syringe / Bag 5.24 ml @ 0 mls/ hr ONCE ONCE IT Last administered on 09/04/17at 15:15; Start 09/04/17 at 13:00 ; Stop 09/04/17 at 13:01; Status DC Sodium Chloride 250 ml @ 15 mls/hr ONCE ONCE IV ; Start 09/04/17 at 12:45; Stop 09/05/17 at 05:24; Status DC Allopurinol (Zyloprim) 300 mg BID PO Last administered on 09/04/17at 20:56; Start 09/04/17 at 21:00; Stop 09/12/17 at 18:36; Status DC Rituximab 768.75 mg/Sodium Chloride 576.875 ml @ 0 mls/hr Q0M ONCE IV Last administered on 09/04/17at 21:51; Start 09/04/17 at 17:00; Stop 09/04/17 at 17:01 ; Status DC Sodium Chloride 1,000 ml @ 100 mls/hr Q10H IV ; Start 09/04/17 at 17:00; Stop 09/04/17 at 23:59; Status DC Granisetron HCl (Kytril Inj) 1 mg Q24H IV Last administered on 09/06/17at 10:30 ; Start 09/04/17 at 22:30; Stop 09/07/17 at 07:48; Status DC Doxorubicin HCl 20.5 mg/ Vincristine Sulfate 0.82 mg/ Etoposide 102.5 mg/Sodium Chloride 516.195 ml @ 21.508 mls/hr Q24H IV Last administered on 09/06/17at 10: 31; Start 09/04/17 at 23:00; Stop 09/07/17 at 07:36; Status DC Diphenhydramine HCl (Benadryl Inj) 50 mg UNSCH PRN IV PUSH ALLERGIC REACTION; Start 09/04/17 at 15:45; Stop 09/07/17 at 15:44; Status DC Epinephrine HCl (Adrenalin (1:1000) Inj) 0.3 mg Q10M PRN OTHER ANAPHYLACTIC REACTION; Start 09/04/17 at 15:45; Stop 09/07/17 at 15:44; Status DC Prednisone (Deltasone) 100 mg BID PO Last administered on 09/06/17at 20:40; Start 09/04/17 at 22:30; Stop 09/07/17 at 07:43; Status DC Prednisone (Deltasone) 20 mg BID PO Last administered on 09/06/17at 20:40; Start 09/04/17 at 22:30; Stop 09/07/17 at 07:44; Status DC Prednisone (Deltasone) 3 mg BID PO Last administered on 09/06/17at 20:40; Start 09/04/17 at 22:30; Stop 09/07/17 at 07:45; Status DC Acetaminophen (Tylenol) 650 mg ONCE ONCE PO Last administered on 09/04/17at 20: 56; Start 09/04/17 at 16:30; Stop 09/04/17 at 16:31; Status DC Cyclophosphamide 1537.5 mg/Sodium Chloride 250 ml @ 250 mls/hr ONCE ONCE IV Last administered on 09/10/17at 20:25; Start 09/10/17 at 15:00; Stop 09/10/17 at 15:59; Status DC Heparin Sodium (Porcine) (Heparin Central Flush) 500 units STK-MED ONCE IV FLUSH Last administered on 09/04/17at 15:36; Start 09/04/17 at 15:36; Stop 09/04 at 15:37; Status DC Sodium Chloride (NS Flush) DAILY IVF Last administered on 09/25/17at 10:00; Start 09/05/17 at 09:00 Heparin Sodium (Porcine) (Heparin Central Flush) DAILY IV FLUSH Last administered on 09/25/17at 09:55; Start 09/05/17 at 09:00 Sodium Chloride (NS Flush) UNSCH PRN IVF SEE PROTOCOL Last administered on at 21:58; Start 09/04/17 at 16:00 Heparin Sodium (Porcine) (Heparin Central Flush) UNSCH PRN IV FLUSH SEE PROTOCOL; Start 09/04/17 at 16:00 Sodium Chloride (NS Flush) UNSCH PRN IVF SEE PROTOCOL Last administered on at 21:59; Start 09/04/17 at 16:00 Rasburicase 7.5 mg/Sodium Chloride 50 ml @ 100 mls/hr ONCE ONCE IV Last administered on 09/04/17at 18:00; Start 09/04/17 at 18:00; Stop 09/04/17 at 18:29 ; Status DC Sodium Chloride 500 ml @ 500 mls/hr BOLUS ONCE IV Last administered on at 08:45; Start 09/05/17 at 08:45; Stop 09/05/17 at 09:44; Status DC Sodium Chloride 250 ml @ 15 mls/hr ONCE ONCE IV Last administered on at 18:23; Start 09/05/17 at 08:45; Stop 09/06/17 at 01:24; Status DC Hydrocortisone Sodium Succinate (SoluCORTEF INJ) 100 mg ONCE ONCE IV PUSH Last administered on 09/05/17at 09:59; Start 09/05/17 at 09:30; Stop 09/05/17 at 09:38; Status DC Famotidine (Pepcid) 20 mg ONCE ONCE PO Last administered on 09/05/17at 09:59; Start 09/05/17 at 09:30; Stop 09/05/17 at 09:41; Status DC Cetirizine HCl (ZyrTEC) 10 mg ONCE ONCE PO Last administered on 09/05/17at 09: 59; Start 09/05/17 at 09:30; Stop 09/05/17 at 09:36; Status DC Acetaminophen (Tylenol) 650 mg ONCE ONCE PO Last administered on 09/05/17at 10: 45; Start 09/05/17 at 10:45; Stop 09/05/17 at 10:48; Status DC Meperidine HCl (Demerol Inj) 12.5 mg ONCE PRN IV PUSH rituxan reaction; Start 09/05/17 at 12:00; Stop 09/08/17 at 11:59; Status DC Sodium Bicarbonate (Sodium Bicarbonate) 650 mg Q12HR PO Last administered on at 09:11; Start 09/05/17 at 21:00; Stop 09/06/17 at 10:34; Status DC Sodium Bicarbonate 2 meq/ Sodium Chloride 1,002 ml @ 75 mls/hr [id number] IV ; Start 09/05/17 at 17:45; Status Cancel Furosemide (Lasix Inj) 20 mg ONCE ONCE IV PUSH Last administered on 09/05/17at 18:08; Start 09/05/17 at 17:45; Stop 09/05/17 at 17:49; Status DC Acetaminophen (Tylenol) 650 mg NOW ONCE PO Last administered on 09/05/17at 18: 09; Start 09/05/17 at 18:15; Stop 09/05/17 at 18:16; Status DC Sodium Bicarbonate 100 meq/Sodium Chloride 1,100 ml @ 125 mls/hr Q8H48M IV Last administered on 09/09/17at 04:03; Start 09/05/17 at 20:00; Stop 09/09/17 at 09:28; Status DC Calcium Gluconate 1 gm/Dextrose 110 ml @ 110 mls/hr ONCE ONCE IV Last administered on 09/05/17at 22:14; Start 09/05/17 at 22:00; Stop 09/05/17 at 22:59 ; Status DC Sodium Polystyrene Sulfonate (Kayexalate Liq) 15 gm ONCE ONCE PO Last administered on 09/05/17at 22:13; Start 09/05/17 at 21:30; Stop 09/05/17 at 21:31 ; Status DC Sodium Chloride 1,000 ml @ 500 mls/hr Q2H IV Last administered on 09/06/17at 00 :15; Start 09/05/17 at 22:15; Stop 09/06/17 at 02:14; Status DC Sodium Polystyrene Sulfonate (Kayexalate Liq) 15 gm Q6H PO Last administered on 09/06/17at 17:09; Start 09/06/17 at 00:15; Stop 09/06/17 at 18:16; Status DC Dopamine HCl/ Dextrose 500 ml @ 0 mls/hr TITRATE PRN IV Blood Pressure Management; Start 09/06/17 at 01:00; Stop 09/06/17 at 01:28; Status DC Terbutaline Sulfate (Brethine Inj) 1 mg UNSCH PRN SQ For Extravasation; Start 09/06/17 at 01:00; Stop 09/06/17 at 11:00; Status DC Albumin Human 500 ml @ 250 mls/hr ONCE ONCE IV Last administered on at 01:00; Start 09/06/17 at 01:00; Stop 09/06/17 at 02:59; Status DC Dopamine HCl/ Dextrose 250 ml @ 0 mls/hr TITRATE PRN IV Blood Pressure Management Last administered on 09/06/17at 08:12; Start 09/06/17 at 01:30; Stop 09/09/17 at 12:50; Status DC Sodium Chloride 250 ml @ 15 mls/hr ONCE ONCE IV Last administered on at 08:15; Start 09/06/17 at 08:15; Stop 09/07/17 at 00:54; Status DC Calcium Gluconate 1 gm/Sodium Chloride 110 ml @ 110 mls/hr ONCE ONCE IV Last administered on 09/06/17at 10:59; Start 09/06/17 at 09:00; Stop 09/06/17 at 09:59 ; Status DC Norepinephrine Bitartrate 250 ml @ 7.5 mls/hr TITRATE PRN IV Blood pressure management Last administered on 09/08/17at 05:40; Start 09/06/17 at 10:15; Stop 09/17/17 at 12:40; Status DC Terbutaline Sulfate (Brethine Inj) 1 mg UNSCH PRN SQ For Extravasation; Start 09/06/17 at 10:15 Vancomycin HCl 1000 mg/Sodium Chloride 250 ml @ 250 mls/hr ONCE ONCE IV Last administered on 09/06/17at 11:00; Start 09/06/17 at 11:00; Stop 09/06/17 at 11:59 ; Status DC Sodium Bicarbonate (Sodium Bicarbonate 8.4% Inj) 50 meq ONCE ONCE IV PUSH Last administered on 09/06/17at 10:59; Start 09/06/17 at 10:45; Stop 09/06/17 at 10:57; Status DC Calcium Acetate (Phoslo) 1,334 mg TID PO Last administered on 09/11/17at 13:19; Start 09/06/17 at 13:00; Stop 09/11/17 at 16:49; Status DC Aztreonam 1000 mg/ Sodium Chloride 100 ml @ 200 mls/hr Q8H IV Last administered on 09/24/17at 04:53; Start 09/06/17 at 12:00; Stop 09/24/17 at 13:50 ; Status DC Calcium Gluconate 2 gm/Dextrose 120 ml @ 120 mls/hr ONCE ONCE IV Last administered on 09/07/17at 06:48; Start 09/07/17 at 06:00; Stop 09/07/17 at 06:59 ; Status DC Doxorubicin HCl 20.5 mg/ Vincristine Sulfate 0.82 mg/ Etoposide 102.5 mg/Sodium Chloride 516.195 ml @ 21.508 mls/hr Q24H IV Last administered on 09/09/17at 18: 03; Start 09/07/17 at 11:00; Stop 09/10/17 at 10:59; Status DC Prednisone (Deltasone) 100 mg BID PO Last administered on 09/10/17at 21:38; Start 09/07/17 at 09:00; Stop 09/10/17 at 21:01; Status DC Prednisone (Deltasone) 20 mg BID PO Last administered on 09/10/17at 21:38; Start 09/07/17 at 09:00; Stop 09/10/17 at 21:01; Status DC Prednisone (Deltasone) 3 mg BID PO Last administered on 09/10/17at 21:38; Start 09/07/17 at 09:00; Stop 09/10/17 at 21:01; Status DC Granisetron HCl (Kytril Inj) 1 mg Q24H IV Last administered on 09/10/17at 20:14 ; Start 09/07/17 at 08:00; Stop 09/10/17 at 08:01; Status DC Rasburicase 7.5 mg/Sodium Chloride 50 ml @ 100 mls/hr ONCE ONCE IV Last administered on 09/07/17at 10:22; Start 09/07/17 at 10:00; Stop 09/07/17 at 10:29 ; Status DC Pharmacy Profile Note 0 ml @ 0 mls/hr UNSCH OTHER ; Start 09/07/17 at 18:00; Status Cancel Vancomycin HCl 2250 mg/Sodium Chloride 522.5 ml @ 209 mls/hr NOW ONCE IV Last administered on 09/07/17at 20:46; Start 09/07/17 at 20:00; Stop 09/07/17 at 22:29; Status DC Miscellaneous Information ([facility] Ordered Lab Info) SPECIFIC LAB TO BE ... ONCE ONCE .XX Last administered on 09/08/17at 05:50; Start 09/08/17 at 05:45; Stop 09/08/17 at 05:46; Status DC Sodium Chloride 250 ml @ 15 mls/hr ONCE ONCE IV Last administered on at 08:40; Start 09/08/17 at 07:30; Stop 09/09/17 at 00:09; Status DC Acetaminophen (Tylenol) 650 mg Q4H PRN PO SEE LABEL COMMENTS Last administered on 09/13/17at 01:17; Start 09/08/17 at 07:30; Stop 09/13/17 at 01:17; Status DC Diphenhydramine HCl (Benadryl) 25 mg Q4H PRN PO SEE LABEL COMMENTS; Start 09/08 at 07:30; Stop 09/11/17 at 10:31; Status DC Calcium Gluconate 2 gm/Dextrose 120 ml @ 120 mls/hr ONCE ONCE IV Last administered on 09/08/17at 08:41; Start 09/08/17 at 09:00; Stop 09/08/17 at 09:59 ; Status DC Potassium Chloride 100 ml @ 25 mls/hr BOLUS ONCE IV Last administered on 09/09at 07:37; Start 09/09/17 at 06:15; Stop 09/09/17 at 10:14; Status DC Calcium Gluconate 1 gm/Dextrose 110 ml @ 110 mls/hr ONCE ONCE IV Last administered on 09/09/17at 07:37; Start 09/09/17 at 07:10; Stop 09/09/17 at 08:09 ; Status DC Sodium Chloride 250 ml @ 15 mls/hr ONCE ONCE IV Last administered on at 08:41; Start 09/09/17 at 07:45; Stop 09/10/17 at 00:24; Status DC Sodium Chloride 1,000 ml @ 125 mls/hr Q8H IV Last administered on 09/09/17at 21 :17; Start 09/09/17 at 09:30; Stop 09/10/17 at 08:18; Status DC Nystatin (Mycostatin Liq) 5 ml QID SWISH-SWAL Last administered on 09/15/17at 09 :59; Start 09/09/17 at 13:00; Stop 09/15/17 at 12:58; Status DC Lidocaine HCl (Xylocaine 2% Viscous) 15 ml Q4H PRN SWISH-SPIT mouth pain Last administered on 09/13/17at 18:04; Start 09/09/17 at 10:15; Stop 09/15/17 at 12:58; Status DC Vancomycin HCl 2000 mg/Sodium Chloride 520 ml @ 250 mls/hr ONCE ONCE IV Last administered on 09/09/17at 14:48; Start 09/09/17 at 14:00; Stop 09/09/17 at 16:04 ; Status DC Potassium Chloride 100 ml @ 25 mls/hr BOLUS ONCE IV ; Start 09/10/17 at 09:00 ; Stop 09/10/17 at 12:15; Status DC Calcium Gluconate 1 gm/Dextrose 110 ml @ 110 mls/hr ONCE ONCE IV Last administered on 09/10/17at 10:00; Start 09/10/17 at 09:00; Stop 09/10/17 at 09:59 ; Status DC Lactated Ringer's 1,000 ml @ 100 mls/hr Q10H IV Last administered on 09/11/17at 07:18; Start 09/10/17 at 09:00; Stop 09/11/17 at 08:53; Status DC Potassium Bicarb/ Potassium Chloride (K-Lyte Cl Eff) 50 meq ONCE ONCE PO Last administered on 09/10/17at 13:06; Start 09/10/17 at 12:15; Stop 09/10/17 at 12:33; Status DC Sodium Chloride 250 ml @ 15 mls/hr ONCE ONCE IV Last administered on at 08:59; Start 09/11/17 at 08:30; Stop 09/12/17 at 01:09; Status DC Diphenhydramine HCl (Benadryl) 25 mg Q4H PRN PO SEE LABEL COMMENTS; Start at 08:30; Stop 09/11/17 at 10:32; Status DC Potassium Chloride (KCl) 40 meq ONCE ONCE PO Last administered on 09/11/17at 09: 00; Start 09/11/17 at 09:00; Stop 09/11/17 at 09:01; Status DC Sodium Chloride 1,000 ml @ 42 mls/hr [id number] IV Last administered on 09/11/17at 09:00; Start 09/11/17 at 09:00; Stop 09/11/17 at 15:47; Status DC Calcium Gluconate 1 gm/Dextrose 110 ml @ 110 mls/hr ONCE ONCE IV Last administered on 09/11/17at 09:55; Start 09/11/17 at 11:00; Stop 09/11/17 at 11:59; Status DC Vancomycin HCl 2250 mg/Sodium Chloride 522.5 ml @ 250 mls/hr ONCE ONCE IV Last administered on 09/11/17at 12:30; Start 09/11/17 at 12:00; Stop 09/11/17 at 14: 05; Status DC Filgrastim 480 mcg/Dextrose 51.6 ml @ 100 mls/hr DAILY@14 IV Last administered on 09/23/17at 14:06; Start 09/11/17 at 21:00; Stop 09/24/17 at 08:22 ; Status DC Dextrose 1,000 ml @ 42 mls/hr [id number] IV ; Start 09/11/17 at 16:00; Stop at 16:19; Status DC Sodium Chloride 1,000 ml @ 42 mls/hr [id number] IV Last administered on 09/12/17at 23:01; Start 09/11/17 at 16:30; Stop 09/13/17 at 08:53; Status DC Chlorothiazide (Diuril) 250 mg BID@,18 PO ; Start 09/11/17 at 18:00; Status Cancel Chlorothiazide (Diuril) 250 mg BID@,18 PO Last administered on 09/18/17at 18:06 ; Start 09/11/17 at 20:00; Stop 09/19/17 at 08:40; Status DC Sodium Chloride 250 ml @ 15 mls/hr ONCE ONCE IV ; Start 09/12/17 at 06:00; Stop 09/12/17 at 22:39; Status DC Acetaminophen (Tylenol) 650 mg Q4H PRN PO SEE LABEL COMMENTS Last administered on 09/14/17at 10:28; Start 09/12/17 at 06:00; Stop 09/14/17 at 10:56; Status DC Potassium Chloride (KCl) 20 meq Q12HR PO Last administered on 09/12/17 09:21; Start 09/11/17 at 21:00; Stop 09/12/17 at 18:36; Status DC Potassium Chloride (KCl) 40 meq NOW ONCE PO Last administered on 09/11/17at 20: 48; Start 09/11/17 at 20:30; Stop 09/11/17 at 20:31; Status DC Lidocaine HCl (Xylocaine 2% Jelly) 1 applic ONCE ONCE TOPICAL Last administered on 09/12/17at 10:26; Start 09/12/17 at 09:30; Stop 09/12/17 at 10:00; Status DC Zinc Oxide (Desitin 40% Oint) 1 applic UNSCH PRN TOPICAL DIAPER RASH Last administered on 09/13/17at 18:07; Start 09/12/17 at 09:30 Nystatin (Mycostatin Powder) 1 applic Q8HR TOPICAL Last administered on at 14:36; Start 09/12/17 at 09:30 Calcium Gluconate 1 gm/Dextrose 110 ml @ 110 mls/hr ONCE ONCE IV Last administered on 09/12/17at 12:10; Start 09/12/17 at 11:30; Stop 09/12/17 at 12:29; Status DC Potassium Chloride (KCl) 40 meq ONCE ONCE PO Last administered on 09/12/17at 12: 10; Start 09/12/17 at 11:45; Stop 09/12/17 at 11:47; Status DC Calcium Gluconate (Calcium Gluconate Inj) 1 gm STK-MED ONCE .ROUTE ; Start at 12:01; Stop 09/12/17 at 12:02; Status DC Vancomycin HCl 2000 mg/Sodium Chloride 520 ml @ 260 mls/hr ONCE ONCE IV Last administered on 09/12/17at 17:48; Start 09/12/17 at 17:00; Stop 09/12/17 at 18:59; Status DC Sodium Chloride 250 ml @ 15 mls/hr ONCE ONCE IV Last administered on at 05:14; Start 09/13/17 at 06:00; Stop 09/13/17 at 22:39; Status DC Potassium Chloride (KCl) 40 meq Q12HR PO Last administered on 09/15/17at 09:59; Start 09/12/17 at 21:00; Stop 09/15/17 at 15:09; Status DC Fluconazole/ Sodium Chloride 50 ml @ 50 mls/hr ONCE ONCE IV Last administered on 09/13/17at 05:13; Start 09/12/17 at 21:00; Stop 09/12/17 at 21:59; Status DC Fluconazole (Diflucan) 100 mg DAILY PO Last administered on 09/22/17at 09:44; Start 09/13/17 at 09:00; Stop 09/22/17 at 10:34; Status DC Lidocaine HCl (Xylocaine 2% Jelly) 1 applic ONCE TOPICAL Last administered on at 18:06; Start 09/12/17 at 20:00; Stop 09/15/17 at 19:59; Status DC Dextrose 1,000 ml @ 42 mls/hr [id number] IV Last administered on 09/16/17at 21:59; Start 09/13/17 at 09:00; Stop 09/17/17 at 09:56; Status DC Albumin Human 50 ml @ 60 mls/hr Q12H IV Last administered on 09/15/17 09:58; Start 09/13/17 at 09:00; Stop 09/15/17 at 09:00; Status DC Calcium Carbonate (Oscal) 1,000 mg BID PO Last administered on 09/18/17 21:18; Start 09/13/17 at 09:00; Stop 09/19/17 at 12:29; Status DC Furosemide (Lasix Inj) 20 mg ONCE ONCE IV PUSH Last administered on 09/13/17 12:14; Start 09/13/17 at 11:35; Stop 09/13/17 at 11:36; Status DC Potassium Bicarbonate (Effer-K Eff) 50 meq ONCE ONCE PO Last administered on at 18:04; Start 09/13/17 at 11:15; Stop 09/13/17 at 11:35; Status DC Nystatin (Mycostatin Liq) 5 ml QID SWISH-SWAL Last administered on 09/14/17at 14 :00; Start 09/13/17 at 13:00; Stop 09/15/17 at 12:58; Status DC Lorazepam (Ativan) 0.5 mg Q6H PRN PO anxiety/ sleep Last administered on 5/11/ 18at 09:54; Start 09/13/17 at 17:30 Potassium Bicarbonate (Effer-K Eff) 50 meq ONCE ONCE PO ; Start 09/14/17 at 12: 00; Stop 09/14/17 at 13:21; Status DC Vancomycin HCl 2000 mg/Sodium Chloride 520 ml @ 257.5 mls/ hr ONCE ONCE IV Last administered on 09/14/17at 14:00; Start 09/14/17 at 11:00; Stop 09/14/17 at 13: 01; Status DC Sodium Chloride 250 ml @ 15 mls/hr ONCE ONCE IV ; Start 09/14/17 at 10:45; Stop 09/15/17 at 03:24; Status DC Acetaminophen (Tylenol) 650 mg Q4H PRN PO SEE LABEL COMMENTS Last administered on 09/15/17 06:31; Start 09/14/17 at 10:45; Stop 09/15/17 at 06:32; Status DC Furosemide (Lasix Inj) 20 mg ONCE ONCE IV PUSH Last administered on 09/14/17at 13:39; Start 09/14/17 at 11:00; Stop 09/14/17 at 11:01; Status DC Sodium Chloride 250 ml @ 15 mls/hr ONCE ONCE IV Last administered on 18:00; Start 09/14/17 at 11:00; Stop 09/15/17 at 03:39; Status DC Potassium Chloride (KCl) 40 meq ONCE ONCE PO Last administered on 09/14/17 17: 59; Start 09/14/17 at 13:30; Stop 09/14/17 at 13:46; Status DC Multi-Ingredient Mouthwash/Gargle (Magic Mouthwash Adult Liq) 10 ml QID SWISH- SPIT Last administered on 09/25/17 12:50; Start 09/15/17 at 13:00 Furosemide (Lasix Inj) 20 mg ONCE ONCE IV PUSH Last administered on 09/14/17 20:02; Start 09/14/17 at 17:30; Stop 09/14/17 at 17:33; Status DC Acetaminophen (Tylenol) 650 mg Q4H PRN PO SEE LABEL COMMENTS Last administered on 09/15/17 22:25; Start 09/15/17 at 06:00; Stop 09/15/17 at 22:26; Status DC Simethicone (Mylicon Chew) 80 mg TID PRN CHEW gas; Start 09/15/17 at 11:45 Furosemide (Lasix Inj) 20 mg ONCE ONCE IV PUSH Last administered on 09/15/17 16:55; Start 09/15/17 at 13:30; Stop 09/15/17 at 13:31; Status DC Potassium Chloride (KCl) 40 meq ONCE ONCE PO Last administered on 09/15/17 16: 52; Start 09/15/17 at 13:30; Stop 09/15/17 at 13:31; Status DC Lidocaine HCl (Xylocaine 2% Viscous) 15 ml Q4H PRN SWISH-SPIT mouth pain; Start 09/15/17 at 13:45; Stop 09/17/17 at 12:40; Status DC Furosemide (Lasix Inj) 40 mg ONCE ONCE IV PUSH Last administered on 09/15/17 16:52; Start 09/15/17 at 15:15; Stop 09/15/17 at 15:16; Status DC Potassium Bicarbonate (Effer-K Eff) 50 meq ONCE ONCE PO ; Start 09/15/17 at 15: 15; Stop 09/15/17 at 15:16; Status DC Potassium Bicarbonate (Effer-K Eff) 50 meq BID PO Last administered on at 08:35; Start 09/15/17 at 21:00; Stop 09/19/17 at 12:27; Status DC Calcium Carbonate (Oscal) 500 mg DAILY PO Last administered on 09/20/17at 09:58 ; Start 09/16/17 at 09:00; Stop 09/20/17 at 12:22; Status DC Calcium Carbonate (Oscal) 500 mg ONCE ONCE PO Last administered on 09/15/17 16 :52; Start 09/15/17 at 15:15; Stop 09/15/17 at 15:20; Status DC Calcium Gluconate 1 gm/Sodium Chloride 110 ml @ 110 mls/hr ONCE ONCE IV Last administered on 09/15/17 16:51; Start 09/15/17 at 15:15; Stop 09/15/17 at 16:14; Status DC Furosemide (Lasix Inj) 20 mg DAILY IV PUSH Last administered on 09/16/17at 09:54 ; Start 09/16/17 at 09:00; Stop 09/17/17 at 09:56; Status DC Multivitamins (Theragran) 1 tab DAILY PO Last administered on 09/20/17at 09:57; Start 09/16/17 at 09:00; Stop 09/20/17 at 12:21; Status DC Sodium Chloride 250 ml @ 15 mls/hr ONCE ONCE IV Last administered on 20:00; Start 09/15/17 at 20:00; Stop 09/16/17 at 12:39; Status DC Acetaminophen (Tylenol) 650 mg Q4H PRN PO SEE LABEL COMMENTS Last administered on 09/17/17 17:13; Start 09/15/17 at 20:00; Stop 09/17/17 at 17:16; Status DC Furosemide (Lasix Inj) 20 mg ONCE ONCE IV PUSH Last administered on 09/15/17 20:30; Start 09/15/17 at 20:00; Stop 09/15/17 at 20:02; Status DC Potassium Chloride (KCl) 20 meq ONCE ONCE PO Last administered on 09/15/17at 20: 42; Start 09/15/17 at 20:00; Stop 09/15/17 at 20:02; Status DC Vancomycin HCl 2000 mg/Sodium Chloride 520 ml @ 257.5 mls/ hr ONCE ONCE IV Last administered on 09/16/17at 12:01; Start 09/16/17 at 11:00; Stop 09/16/17 at 13: 01; Status DC Oxycodone HCl (Roxicodone) 5 mg Q4H PRN PO pain 2-5 Last administered on at 02:08; Start 09/16/17 at 11:45 Oxycodone HCl (Roxicodone) 10 mg Q4H PRN PO pain 6-10 Last administered on 09/23at 23:42; Start 09/16/17 at 11:45 Sodium Chloride 250 ml @ 15 mls/hr ONCE ONCE IV Last administered on at 16:11; Start 09/17/17 at 08:30; Stop 09/18/17 at 01:09; Status DC Vancomycin HCl 2000 mg/Sodium Chloride 520 ml @ 257.5 mls/ hr ONCE ONCE IV Last administered on 09/17/17at 10:55; Start 09/17/17 at 11:00; Stop 09/17/17 at 13: 01; Status DC Furosemide (Lasix Inj) 40 mg DAILY IV PUSH Last administered on 09/18/17at 09:05 ; Start 09/18/17 at 09:00; Stop 09/18/17 at 09:28; Status DC Potassium Bicarb/ Potassium Chloride (K-Lyte Cl Eff) 50 meq ONCE ONCE PO ; Start 09/17/17 at 10:00; Stop 09/17/17 at 10:17; Status DC Potassium Chloride 100 ml @ 20 mls/hr Q6H IV Last administered on 09/18/17at 04: 42; Start 09/17/17 at 20:00; Stop 09/18/17 at 06:59; Status DC Acetaminophen (Tylenol) 650 mg Q4H PRN PO SEE LABEL COMMENTS Last administered on 09/18/17at 11:20; Start 09/18/17 at 06:00; Stop 09/18/17 at 11:38; Status DC Acyclovir (Zovirax) 400 mg Q8HR PO Last administered on 09/21/17at 06:13; Start 09/17/17 at 22:00; Stop 09/21/17 at 15:25; Status DC Nystatin (Mycostatin Liq) 5 ml QID SWISH-SWAL Last administered on 09/19/17at 18 :36; Start 09/17/17 at 21:00; Stop 09/19/17 at 18:50; Status DC Furosemide (Lasix Inj) 40 mg DAILY@0900,1800 IV PUSH Last administered on at 09:55; Start 09/18/17 at 18:00; Status Future hold Albumin Human 100 ml @ 60 mls/hr Q12H IV Last administered on 09/25/17at 09:50 ; Start 09/18/17 at 09:30 Sodium Chloride 250 ml @ 15 mls/hr ONCE ONCE IV Last administered on at 14:05; Start 09/18/17 at 14:30; Stop 09/19/17 at 07:09; Status DC Vancomycin HCl 2000 mg/Sodium Chloride 520 ml @ 250 mls/hr ONCE ONCE IV Last administered on 09/18/17 18:07; Start 09/18/17 at 16:00; Stop 09/18/17 at 18:04; Status DC Potassium Chloride 100 ml @ 50 mls/hr Q2H IV Last administered on 09/19/17at 12: 46; Start 09/19/17 at 06:00; Stop 09/19/17 at 09:59; Status DC Temazepam (Restoril) 15 mg HS PRN PO insomnia Last administered on 09/24/17at 22:49; Start 09/19/17 at 10:15 Potassium Bicarbonate (Effer-K Eff) 50 meq TID PO ; Start 09/19/17 at 13:00; Stop 09/20/17 at 12:21; Status DC Potassium Chloride 100 ml @ 25 mls/hr BOLUS ONCE IV Last administered on at 19:58; Start 09/19/17 at 12:45; Stop 09/19/17 at 16:46; Status DC Potassium Chloride 100 ml @ As Directed STK-MED ONCE .ROUTE ; Start 09/19/17 at 12:43; Stop 09/19/17 at 12:44; Status DC Sodium Chloride 250 ml @ 15 mls/hr ONCE ONCE IV Last administered on at 07:03; Start 09/20/17 at 06:00; Stop 09/20/17 at 22:39; Status DC Furosemide (Lasix Inj) 20 mg ONCE ONCE IV PUSH Last administered on 09/19/17at 19:58; Start 09/19/17 at 19:00; Stop 09/19/17 at 19:11; Status DC Calcium Gluconate 1 gm/Sodium Chloride 110 ml @ 110 mls/hr ONCE ONCE IV Last administered on 09/19/17at 21:20; Start 09/19/17 at 20:00; Stop 09/19/17 at 20:59; Status DC Potassium Chloride (KCl) 60 meq ONCE ONCE PO ; Start 09/19/17 at 19:00; Stop 09/19/17 at 19:01; Status UNV Potassium Chloride 100 ml @ 25 mls/hr Q4H IV Last administered on 09/20/17at 18 :47; Start 09/20/17 at 08:00; Stop 09/20/17 at 15:59; Status DC Magnesium Oxide (Mag-Ox) 400 mg ONCE ONCE PO Last administered on 09/20/17at 09 :57; Start 09/20/17 at 09:00; Stop 09/20/17 at 09:01; Status DC Potassium Bicarbonate (Effer-K Eff) 50 meq ONCE ONCE PO ; Start 09/20/17 at 09: 00; Stop 09/20/17 at 09:01; Status DC Sucralfate (Carafate Liq) 1 gm ACHS PO Last administered on 09/23/17at 08:50; Start 09/20/17 at 12:00; Stop 09/23/17 at 10:05; Status DC Multivitamins (Theragran) 1 tab DAILY PO Last administered on 09/25/17at 09:50; Start 09/21/17 at 18:00 Calcium Carbonate (Oscal) 500 mg DAILY PO Last administered on 09/25/17at 09:51 ; Start 09/21/17 at 18:00 Spironolactone (Aldactone) 25 mg ONCE ONCE PO Last administered on 09/20/17at 14:53; Start 09/20/17 at 13:15; Stop 09/20/17 at 13:16; Status DC Spironolactone (Aldactone) 25 mg BID PO ; Start 09/20/17 at 21:00; Stop at 21:00; Status DC Potassium Chloride 100 ml @ 25 mls/hr BOLUS ONCE IV Last administered on 09/21at 02:00; Start 09/20/17 at 20:00; Stop 09/20/17 at 23:59; Status DC Spironolactone (Aldactone) 25 mg DAILY PO Last administered on 09/22/17at 09:44 ; Start 09/21/17 at 09:00; Stop 09/22/17 at 13:03; Status DC Potassium Bicarb/ Potassium Chloride (K-Lyte Cl Eff) 50 meq ONCE ONCE PO ; Start 09/21/17 at 12:00; Stop 09/21/17 at 12:21; Status DC Potassium Phosphate (K-Phos) 500 mg ONCE ONCE PO Last administered on at 15:55; Start 09/21/17 at 12:00; Stop 09/21/17 at 12:01; Status DC Potassium Chloride/Dextrose 1,000 ml @ 35 mls/hr Q24H IV Last administered on 09/21/17at 12:13; Start 09/21/17 at 11:30; Stop 09/22/17 at 07:29; Status DC Potassium Chloride (KCl) 40 meq ONCE ONCE PO Last administered on 09/21/17at 15 :54; Start 09/21/17 at 12:30; Stop 09/21/17 at 12:31; Status DC Famciclovir (Famvir) 500 mg Q8HR PO Last administered on 09/25/17at 14:36; Start 09/21/17 at 22:00 Sodium Chloride 250 ml @ 15 mls/hr ONCE ONCE IV Last administered on at 10:12; Start 09/22/17 at 07:30; Stop 09/23/17 at 00:09; Status DC Magnesium Oxide (Mag-Ox) 400 mg Q12HR PO Last administered on 09/25/17 09:51; Start 09/22/17 at 09:45 Potassium Chloride (KCl) 60 meq ONCE ONCE PO Last administered on 09/22/17at 10 :20; Start 09/22/17 at 09:45; Stop 09/22/17 at 09:46; Status DC Spironolactone (Aldactone) 25 mg BID PO Last administered on 09/25/17at 09:50; Start 09/22/17 at 21:00 Lidocaine HCl (Xylocaine 2% Viscous) 15 ml Q4H PRN SWISH-SPIT SORE THROAT Last administered on 09/25/17at 12:50; Start 09/22/17 at 15:00 Potassium Phosphate 15 mmol/ Sodium Chloride 155 ml @ 38.75 mls/ hr ONCE ONCE IV Last administered on 09/22/17at 19:18; Start 09/22/17 at 15:15; Stop at 19:14; Status DC Sodium Chloride 250 ml @ 15 mls/hr ONCE ONCE IV Last administered on at 07:45; Start 09/23/17 at 07:45; Stop 09/24/17 at 00:24; Status DC Potassium Chloride/Dextrose 1,000 ml @ 35 mls/hr Q24H IV Last administered on 09/24/17at 20:43; Start 09/23/17 at 15:15 Potassium Phosphate 30 mmol/ Sodium Chloride 260 ml @ 43.333 mls/ hr ONCE ONCE IV Last administered on 09/23/17at 16:05; Start 09/23/17 at 17:00; Stop at 22:59; Status DC Potassium Chloride (KCl) 60 meq ONCE ONCE PO Last administered on 09/24/17at 13 :52; Start 09/24/17 at 10:45; Stop 09/24/17 at 11:02; Status DC Filgrastim 480 mcg/Dextrose 51.6 ml @ 100 mls/hr DAILY@14 IV Last administered on 09/25/17at 14:36; Start 09/25/17 at 14:00 Sodium Chloride 250 ml @ 15 mls/hr ONCE ONCE IV Last administered on at 12:48; Start 09/25/17 at 07:45; Stop 09/26/17 at 00:24 Potassium Chloride (KCl) 60 meq ONCE ONCE PO ; Start 09/25/17 at 15:15; Stop at 15:16; Status UNV Attending Statement THIS NOTE REPRESENTS MY ENCOUNTER ON 09/24 DURING ROUNDS Problem List: (1) B-cell lymphoma ICD Codes: C85.10 - Unspecified B-cell lymphoma, unspecified site Status: Acute (2) Anasarca ICD Codes: R60.1 - Generalized edema Plan: --continuing to improve. --appreciate nephrology assistance. --receiving Lasix IV + spironolactone (3) Skin breakdown ICD Codes: L90.9 - Atrophic disorder of skin, unspecified Plan: --appreciate wound care assistance. improving. (4) Hypokalemia ICD Codes: E87.6 - Hypokalemia Plan: --due to diuresis. --continue to replace. (5) Hyperbilirubinemia ICD Codes: E80.6 - Other disorders of bilirubin metabolism Plan: --improving. 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 CT C/A/P showing no LAD Discussed w/ oncologist in [facility]'s home town coordination of treatment when he leaves here. He has flight schedule 10/09/17. Dr Duron has requested placement of omaya reservoir Consinue neuro checks For OR when platelet count 80 to 100,000 count. We have discussed the details including the [id number] details of the surgical procedure, its indications, alternatives, risks, and potential complications. Risks and potential complications include, but are not limited to, infection, blood loss, CSF leak, partial or complete loss of sight in one or both eyes, paresis, paralysis, permanent pain or difficulty swallowing, loss of bowel or bladder function, complications from anesthesia, blood clot, stroke, myocardial infarction, or even . Severe thrombocytopenia Continue aggressive platelet transfusion He needs a bone marrow biopsy aggressive pulmonary toilette, nasotracheal suction, and breathing treatments with nebulizers. Thrombocytopenia. Needs workup. Trasfuse aggressively to count of 100K Renal. monitor closely urine output, BUN and creatinine Endocrine. Monitor serial Acu checks and SSI as needed in detail ID monitor for signs of infection Protonix for stress ulcer prophylaxis James huynh and SCD's for DVT prophylaxis Discussed with his Discussed with Chino Saha MD September 25, 2017 16:01
[2017-09-26] VITALS (10 sets, daily range): BP systolic 126–152; BP diastolic 69–83; PULSE 65–79; RESP 14–18; TEMP 97–98.9; O2SAT 95–96
[2017-09-26] MEDS: CHLORHEXIDINE GLUCONATE 2 % 1 PACK (2 CLOTHS) TOP SCH ×2 (01:52→23:21)
[2017-09-26 04:53] LABS: AUTOMATED NEUTROPHIL # 8.2 TH/MM3 (1.8-7.7); BASOPHIL % 0.1 % (0.0-2.0); HEMATOCRIT 21.9 % (39.0-51.0); HEMOGLOBIN 7.6 GM/DL (13.0-17.0); LYMPH % 2.7 % (9.0-44.0); LYMPHOCYTE # 0.2 TH/MM3 (1.0-4.8); MEAN CELL VOLUME 86.1 FL (80.0-100.0); MEAN CORPUSCULAR HEMOGLOBIN 29.8 PG (27.0-34.0); MEAN CORPUSCULAR HGB CONC 34.6 % (32.0-36.0); MEAN PLATELET VOLUME 9.7 FL (7.0-11.0); MONO % 4.3 % (0.0-8.0); MONOCYTE # 0.4 TH/MM3 (0-0.9); NEUT % 92.9 % (16.0-70.0); PLATELET COUNT 25 TH/MM3 (150-450); RED BLOOD COUNT 2.55 MIL/MM3 (4.50-5.90); RED CELL DISTRIBUTION WIDTH 14.1 % (11.6-17.2); WHITE BLOOD COUNT 8.8 TH/MM3 (4.0-11.0)
[2017-09-26 05:22] LABS: ALBUMIN 3.3 GM/DL (3.4-5.0); BICARBONATE 31.9 MEQ/L (21.0-32.0); CALCIUM 7.6 MG/DL (8.5-10.1); CREATININE 0.91 MG/DL (0.60-1.30); DIRECT BILIRUBIN ADULT 0.8 MG/DL (0.0-0.2)
[2017-09-26 05:25] LABS: INDIRECT BILIRUBIN 1.2 MG/DL (0.0-0.8); PHOSPHORUS 2.1 MG/DL (2.5-4.9); TOTAL PROTEIN 5.4 GM/DL (6.4-8.2)
[2017-09-26] MEDS: FAMCICLOVIR 500 MG TAB PO SCH ×3 (06:32→20:19)
[2017-09-26] MEDS: NYSTATIN 100,000 U/GM PWD 15 GM BTL TOPICAL SCH ×3 (06:32→20:23)
[2017-09-26] MEDS: D5W + KCL 20 MEQ INJ 1,000 ML IV SCH ×2 (06:34→15:15)
[2017-09-26 08:02] LABS: BANDS 21 % (0-6); LYMPHOCYTES 1 % (9-44); METAMYELOCYTES 5 % (0-1); MONOCYTES 2 % (0-8); NEUTROPHIL # MANUAL DIFF 8.5 TH/MM3 (1.8-7.7); POLYS (SEG NEUTROPHILS) 71 % (16-70)
[2017-09-26 08:03] LABS: TOXIC GRANULATION 1+ (NORMAL)
--- NOTE | 2017-09-26 09:26 | PD.ONC.PN ---
Subjective Subjective Remarks Afebrile overnight. Patient resting in bed in nad. worried about taking jensen catheter out. waiting on Ommaya reservoir placement. Objective Data Date Time Temp Pulse Resp B/P (MAP) Pulse Ox O2 Delivery O2 Flow Rate FiO2 09/26/17 04:00 97.0 75 14 139/83 (101) 95 09/26/17 04:00 66 09/26/17 01:30 98.9 74 16 136/72 (93) 95 09/26/17 00:00 98.1 79 15 126/69 (88) 95 09/26/17 00:00 76 09/25/17 20:00 72 09/25/17 20:00 98.7 74 16 144/74 (97) 95 09/25/17 20:00 Room Air 09/25/17 19:44 21 09/25/17 16:01 98.2 72 20 144/85 96 09/25/17 15:31 68 09/25/17 13:04 98.4 68 18 139/81 97 09/25/17 12:50 98.3 73 20 148/90 96 09/25/17 12:00 72 09/25/17 11:34 98.3 68 18 137/84 (101) 97 09/25/17 09:30 Room Air 09/26/17 09/26/17 09/26/17 07:00 15:00 23:00 Intake Total 240 ml Output Total 1600 ml Balance -1360 ml Result Diagram: 09/26/17 0417 09/26/17 0417 Laboratory Results Laboratory Tests Test 09/26/17 04:17 White Blood Count 8.8 TH/MM3 Red Blood Count 2.55 MIL/MM3 Hemoglobin 7.6 GM/DL Hematocrit 21.9 % Mean Corpuscular Volume 86.1 FL Mean Corpuscular Hemoglobin 29.8 PG Mean Corpuscular Hemoglobin Concent 34.6 % Red Cell Distribution Width 14.1 % Platelet Count 25 TH/MM3 Mean Platelet Volume 9.7 FL Neutrophils (%) (Auto) 92.9 % Lymphocytes (%) (Auto) 2.7 % Monocytes (%) (Auto) 4.3 % Eosinophils (%) (Auto) 0.0 % Basophils (%) (Auto) 0.1 % Neutrophils # (Auto) 8.2 TH/MM3 Lymphocytes # (Auto) 0.2 TH/MM3 Monocytes # (Auto) 0.4 TH/MM3 Eosinophils # (Auto) 0.0 TH/MM3 Basophils # (Auto) 0.0 TH/MM3 CBC Comment AUTO DIFF Differential Total Cells Counted 100 Neutrophils % (Manual) 71 % Band Neutrophils % 21 % Lymphocytes % 1 % Monocytes % 2 % Neutrophils # (Manual) 8.5 TH/MM3 Metamyelocytes 5 % Differential Comment FINAL DIFF MANUAL Toxic Granulation 1+ Platelet Estimate LOW Platelet Morphology Comment NORMAL Blood Urea Nitrogen 22 MG/DL Creatinine 0.91 MG/DL Random Glucose 115 MG/DL Total Protein 5.4 GM/DL Albumin 3.3 GM/DL Calcium Level 7.6 MG/DL Phosphorus Level 2.1 MG/DL Alkaline Phosphatase 92 U/L Aspartate Amino Transf (AST/SGOT) 11 U/L Alanine Aminotransferase (ALT/SGPT) 26 U/L Total Bilirubin 2.0 MG/DL Direct Bilirubin 0.8 MG/DL Sodium Level 144 MEQ/L Potassium Level 3.3 MEQ/L Chloride Level 106 MEQ/L Carbon Dioxide Level 31.9 MEQ/L Anion Gap 6 MEQ/L Estimat Glomerular Filtration Rate 82 ML/MIN Indirect Bilirubin 1.2 MG/DL Administered Medications Medications (Trade) Dose Ordered Sig/Robert Route PRN Reason Start Time Stop Time Status Last Admin Dose Admin Sodium Chloride (NS Flush) 2 ml UNSCH PRN IV FLUSH FLUSH AFTER USING IV ACCESS 08/29/17 15:45 09/08/17 23:42 Sodium Chloride (NS Flush) 2 ml BID IV FLUSH 08/29/17 21:00 09/25/17 21:00 Pantoprazole Sodium (Protonix Inj) 40 mg DAILY IV PUSH 08/30/17 09:00 09/25/17 09:51 Ondansetron HCl (Zofran Inj) 4 mg Q6H PRN IV PUSH NAUSEA OR VOMITING 08/29/17 16:00 09/24/17 09:14 Albuterol/ Ipratropium (Duoneb Neb) 1 ampule Q2HR NEB PRN INH WHEEZING 08/29/17 16:00 09/04/17 23:32 Chlorhexidine Gluconate (Chlorhexidine 2% Cloth) Taper DAILY@04 TOP 08/30/17 04:00 08/26/18 03:59 09/13/17 05:13 Senna/Docusate Sodium (Madina-Colace) 1 tab BID PO 08/29/17 21:00 09/24/17 09:15 Albuterol Sulfate (Proair Hfa Inh) 2 puff Q6H PRN INH SHORTNESS OF BREATH 08/29/17 18:00 09/13/17 11:05 Budesonide/ Formoterol Fumarate (Symbicort 160-4.5 Mcg Inh) 2 puff BID INH 08/29/17 21:00 09/25/17 21:04 Morphine Sulfate (Morphine Inj) 2 mg Q4H PRN IV PUSH BREAKTHROUGH PAIN 09/01/17 16:00 09/17/17 23:07 Sodium Chloride (NS Flush) DAILY IVF 09/05/17 09:00 09/25/17 10:00 Heparin Sodium (Porcine) (Heparin Central Flush) DAILY IV FLUSH 09/05/17 09:00 09/25/17 09:55 Sodium Chloride (NS Flush) UNSCH PRN IVF SEE PROTOCOL 09/04/17 16:00 09/10/17 21:58 Sodium Chloride (NS Flush) UNSCH PRN IVF SEE PROTOCOL 09/04/17 16:00 09/10/17 21:59 Zinc Oxide (Desitin 40% Oint) 1 applic UNSCH PRN TOPICAL DIAPER RASH 09/12/17 09:30 09/13/17 18:07 Nystatin (Mycostatin Powder) 1 applic Q8HR TOPICAL 09/12/17 09:30 09/26/17 06:32 Lorazepam (Ativan) 0.5 mg Q6H PRN PO anxiety/ sleep 09/13/17 17:30 09/21/17 09:54 Multi-Ingredient Mouthwash/Gargle (Magic Mouthwash Adult Liq) 10 ml QID SWISH-SPIT 09/15/17 13:00 09/25/17 16:05 Oxycodone HCl (Roxicodone) 5 mg Q4H PRN PO pain 2-5 09/16/17 11:45 09/21/17 02:08 Oxycodone HCl (Roxicodone) 10 mg Q4H PRN PO pain 6-10 09/16/17 11:45 09/25/17 21:00 Furosemide (Lasix Inj) 40 mg DAILY@0900,1800 IV PUSH 09/18/17 18:00 Future hold 09/25/17 16:06 Albumin Human 100 ml @ 60 mls/hr Q12H IV 09/18/17 09:30 09/25/17 20:56 Temazepam (Restoril) 15 mg HS PRN PO insomnia 09/19/17 10:15 09/24/17 22:49 Multivitamins (Theragran) 1 tab DAILY PO 09/21/17 18:00 09/25/17 09:50 Calcium Carbonate (Oscal) 500 mg DAILY PO 09/21/17 18:00 09/25/17 09:51 Famciclovir (Famvir) 500 mg Q8HR PO 09/21/17 22:00 09/26/17 06:32 Magnesium Oxide (Mag-Ox) 400 mg Q12HR PO 09/22/17 09:45 09/25/17 20:56 Spironolactone (Aldactone) 25 mg BID PO 09/22/17 21:00 09/25/17 20:56 Lidocaine HCl (Xylocaine 2% Viscous) 15 ml Q4H PRN SWISH-SPIT SORE THROAT 09/22/17 15:00 09/25/17 16:05 Potassium Chloride/Dextrose 1,000 ml @ 35 mls/hr Q24H IV 09/23/17 15:15 09/26/17 06:34 Objective Remarks GENERAL: elderly male, sitting up in room eating breakfast. SKIN: Warm and dry. HEAD: Normocephalic. EYES: No injection or drainage. NECK: Supple, trachea midline. CARDIOVASCULAR: Regular rate and rhythm RESPIRATORY: Breath sounds equal bilaterally. No accessory muscle use. GASTROINTESTINAL: Abdomen soft, non-tender, nondistended. EXTREMITIES: No cyanosis. mild edema, bilateral lower extremities. NEUROLOGICAL: awake, alert. normal speech. moving extremities. 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 CT C/A/P showing no LAD Discussed w/ oncologist in [facility] pt's home town coordination of treatment when he leaves here. He has flight schedule 10/09/17. agreed to assume care, plan to fax records, appt to be made for the Sunday after his return home. 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 09/04: PICC line placement today, start R-EPOCH, give IT MTX. 09/05: Rituxan infusion complete. patient in TLS. transferred to ICU. employee service officer consulted. 09/06: start EPOCH, window closing as patient is now leukopenic. give blood and platelets. 09/07: give D2 EPOCH. give 1 unit pRBC, check repeat H/H. 09/08: give D3 EPOCH. 1 unit pRBC, 1 unit platelets. 09/09: D4 EPOCH, 2 units platelets. 09/10: D5--finish 4th bag of EPOCH, give Cytoxan this evening. 09/13/17: Continue G-CSF support 09/14/17: Transfuse 2 units packed red blood cells, 1 unit platelets 09/17/17: continue Neupogen. give 1 unit prbc 1 unit platelets. 09/18/17: start wound care instructions. 1 unit pRBC, 1 unit platelets. 09/20: edema improving. continue to replace potassium aggressively with diuresis. 09/21: WBC starting to recover. will plan to consult patient's neurosurgeon to ask them to place Ommaya reservoir when counts closer to recovery. 09/22: WBC continuing to recover. will give blood and platelets today. 09/23: give 1 unit platelets. await ommaya placement. (2) Anasarca ICD Codes: R60.1 - Generalized edema Plan: --continuing to improve. --appreciate nephrology assistance. --receiving Lasix IV + spironolactone (3) Skin breakdown ICD Codes: L90.9 - Atrophic disorder of skin, unspecified Plan: --appreciate wound care assistance. improving. (4) Hypokalemia ICD Codes: E87.6 - Hypokalemia Plan: --due to diuresis. --continue to replace. (5) Hyperbilirubinemia ICD Codes: E80.6 - Other disorders of bilirubin metabolism Plan: --improving. Assessment 72y/o male with new diagnosis of Burkitt's lymphoma in the bone marrow given R- EPOCH chemo Plan 1. no transfusion today 2. await Ommaya placement. 3. d/c Jensen catheter. Attending Statement The exam, history, and the medical decision-making described in the above note were completed with the assistance of the mid-level provider. I reviewed and agree with the findings presented. I attest that I had a [id number] encounter with the patient on the same day, and personally performed and documented my assessment and findings in the medical record. Pt seen and examined. Evaluated by Faisal however, does not meet complexity of inpatient and already walks 100ft. Discussed options to increase physical activity. DC jensen. Encourage ambulation, plan for DC home pending recovery platelets for Omaya placement. Laurita Davila September 26, 2017 09:26 Shahla Duron MD September 26, 2017 17:09
[2017-09-26] MEDS: ALBUMIN 25% INJ 100 ML IV SCH ×2 (10:44→20:21)
[2017-09-26] MEDS: SPIRONOLACTONE 25 MG TAB PO SCH ×2 (10:54→20:19)
[2017-09-26] MEDS: CALCIUM CARBONATE 1.25 GM (CA 500 MG) TAB PO SCH (10:54)
[2017-09-26] MEDS: DOCUSATE SODIUM 50 MG/SENNA 8.6 MG TAB PO SCH ×2 (10:54→20:21)
[2017-09-26] MEDS: MULTIVITAMIN TAB PO SCH (10:54)
[2017-09-26] MEDS: SODIUM CHLORIDE 0.9% FLUSH 10 ML FLUSH IVF SCH (10:55)
[2017-09-26] MEDS: MAGNESIUM OXIDE 400 MG TAB PO SCH ×2 (10:55→20:19)
[2017-09-26] MEDS: SODIUM CHLORIDE 0.9% FLUSH 10 ML FLUSH IV FLUSH SCH ×2 (10:56→20:20)
[2017-09-26] MEDS: BUDESONIDE-FORMOTEROL 160/4.5 MCG INHALER INH SCH ×2 (10:56→20:26)
[2017-09-26] MEDS: FUROSEMIDE 20 MG/2 ML VIAL IV PUSH SCH ×2 (11:08→18:30)
--- NOTE | 2017-09-26 13:34 | HHI.NSPN ---
Note Status Status: Progress Note Interval History Interval History Mr. Rico is a 72-year-old man with multiple medical problems, including history of prostate cancer, status post prostatectomy, coronary artery disease, status post stent placement. Apparently he has had a recent fall before coming down to [place] and had a rotator cuff injury. He was treatedf with physical therapy. [place] on the beach and he developed severe back pain, prompting him to buy Icy Hot compresses. He then went to the urgent care center where he was given a course of anti-inflammatory medication and pain medications He developed progressive shortness of breath. He noticed some bruising over the past week. He lost the hearing in his left ear suddenly. Because of the hearing he went into the urgent care, a second time. He had worsening dizziness with sensation of passing out and therefore came to the emergency room. His platelet count of 5000. He has bruising and petechia on his abdomen. His CT scan of the head showed a small focal region of increased density in the falx concerning for subdural hemorrhage. He denies any focal motor weakness. He denies any sensory loss. No seizure activity. No incontinence of stool or urine. Neurosurgical consultation was requested 08/31. Doing well. No focal weakness. No significant headaches 09/24. 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 He is alert and awake, neurologically stable. Severe persistent thrombocytopenia. Dr Duron giving transfusion of PRBC and platelets 09/26: Platelets improving however today's counts were 25,000. No changes neurologically. Labs, Micro, & Vital Signs Results Date Time Temp Pulse Resp B/P (MAP) Pulse Ox O2 Delivery O2 Flow Rate FiO2 09/26/17 13:04 98.6 74 18 146/81 (102) 96 09/26/17 10:15 98.0 74 18 143/82 (102) 96 09/26/17 08:00 95 09/26/17 04:00 97.0 75 14 139/83 (101) 95 09/26/17 04:00 66 09/26/17 01:30 98.9 74 16 136/72 (93) 95 09/26/17 00:00 98.1 79 15 126/69 (88) 95 09/26/17 00:00 76 09/25/17 20:00 72 09/25/17 20:00 98.7 74 16 144/74 (97) 95 09/25/17 20:00 Room Air 09/25/17 19:44 21 09/25/17 16:01 98.2 72 20 144/85 96 09/25/17 15:31 68 Constitutional Vital Signs Date Time Temp Pulse Resp B/P (MAP) Pulse Ox O2 Delivery O2 Flow Rate FiO2 09/26/17 13:04 98.6 74 18 146/81 (102) 96 09/26/17 10:15 98.0 74 18 143/82 (102) 96 09/26/17 08:00 95 09/26/17 04:00 97.0 75 14 139/83 (101) 95 09/26/17 04:00 66 09/26/17 01:30 98.9 74 16 136/72 (93) 95 09/26/17 00:00 98.1 79 15 126/69 (88) 95 09/26/17 00:00 76 09/25/17 20:00 72 09/25/17 20:00 98.7 74 16 144/74 (97) 95 09/25/17 20:00 Room Air 09/25/17 19:44 21 09/25/17 16:01 98.2 72 20 144/85 96 09/25/17 15:31 68 Review of Systems Constitutional: DENIES: Fever Neurologic: DENIES: Headache, Localized weakness, Seizures Physical Exam GENERAL: Awake & alert sitting in chair watching TV. Affect normal. Readily interacts. No apparent distress. SKIN: Warm, dry & intact HEENT: Normocephalic, steri-strips to right jaw. PERRLA 3 mm brisk, EOMI. MMM & pink, tongue midline to protrusion. RESPIRATORY: non-laboured, no wheezing CARDIOVASCULAR: Regular rate rhythm GASTROINTESTINAL: Abdomen soft, non-tender MUSCULOSKELETAL: DERAS spontaneously & purposefully w/o difficulty. Extremities NTTP. No evident clubbing or deformity. NEUROLOGICAL: AAOx3. Speech clear & appropriate. Follows simple commands. CN II through XII appear grossly intact. Sensation intact to light touch to all extremities. Motor strength is 5/5 to all major flexion & extension muscle groups of the extremities. Medications Current Medications Current Medications Medications (Trade) Dose Ordered Sig/Robert Route PRN Reason Start Time Stop Time Status Last Admin Dose Admin Sodium Chloride (NS Flush) 2 ml UNSCH PRN IV FLUSH FLUSH AFTER USING IV ACCESS 08/29/17 15:45 09/08/17 23:42 Sodium Chloride (NS Flush) 2 ml BID IV FLUSH 08/29/17 21:00 09/26/17 10:56 Ondansetron HCl (Zofran Inj) 4 mg Q6H PRN IV PUSH NAUSEA OR VOMITING 08/29/17 16:00 09/24/17 09:14 Miscellaneous Information 1 [id number] XX 08/29/17 15:45 Chlorhexidine Gluconate (Chlorhexidine 2% Cloth) Taper DAILY@04 TOP 08/30/17 04:00 08/26/18 03:59 09/13/17 05:13 Senna/Docusate Sodium (Madina-Colace) 1 tab BID PO 08/29/17 21:00 09/26/17 10:54 Magnesium Hydroxide (Milk Of Magnesia Liq) 30 ml Q12H PRN PO Mild constipation 08/29/17 16:00 Sennosides (Senokot) 17.2 mg Q12H PRN PO Moderate constipation 08/29/17 16:00 Bisacodyl (Dulcolax Supp) 10 mg DAILY PRN RECTAL SEVERE CONSITIPATION 08/29/17 16:00 Lactulose (Lactulose Liq) 30 ml DAILY PRN PO SEVERE CONSITIPATION 08/29/17 16:00 Budesonide/ Formoterol Fumarate (Symbicort 160-4.5 Mcg Inh) 2 puff BID INH 08/29/17 21:00 09/26/17 10:56 Morphine Sulfate (Morphine Inj) 2 mg Q4H PRN IV PUSH BREAKTHROUGH PAIN 09/01/17 16:00 09/17/17 23:07 Sodium Chloride (NS Flush) DAILY IVF 09/05/17 09:00 09/26/17 10:55 Heparin Sodium (Porcine) (Heparin Central Flush) DAILY IV FLUSH 09/05/17 09:00 09/26/17 10:55 Sodium Chloride (NS Flush) UNSCH PRN IVF SEE PROTOCOL 09/04/17 16:00 09/10/17 21:58 Heparin Sodium (Porcine) (Heparin Central Flush) UNSCH PRN IV FLUSH SEE PROTOCOL 09/04/17 16:00 Sodium Chloride (NS Flush) UNSCH PRN IVF SEE PROTOCOL 09/04/17 16:00 09/10/17 21:59 Zinc Oxide (Desitin 40% Oint) 1 applic UNSCH PRN TOPICAL DIAPER RASH 09/12/17 09:30 09/13/17 18:07 Nystatin (Mycostatin Powder) 1 applic Q8HR TOPICAL 09/12/17 09:30 09/26/17 06:32 Lorazepam (Ativan) 0.5 mg Q6H PRN PO anxiety/ sleep 09/13/17 17:30 09/21/17 09:54 Oxycodone HCl (Roxicodone) 5 mg Q4H PRN PO pain 2-5 09/16/17 11:45 09/21/17 02:08 Oxycodone HCl (Roxicodone) 10 mg Q4H PRN PO pain 6-10 09/16/17 11:45 09/25/17 21:00 Furosemide (Lasix Inj) 40 mg DAILY@0900,1800 IV PUSH 09/18/17 18:00 Future hold 09/26/17 11:08 Albumin Human 100 ml @ 60 mls/hr Q12H IV 09/18/17 09:30 09/26/17 10:44 Temazepam (Restoril) 15 mg HS PRN PO insomnia 09/19/17 10:15 09/24/17 22:49 Multivitamins (Theragran) 1 tab DAILY PO 09/21/17 18:00 09/26/17 10:54 Calcium Carbonate (Oscal) 500 mg DAILY PO 09/21/17 18:00 09/26/17 10:54 Famciclovir (Famvir) 500 mg Q8HR PO 09/21/17 22:00 09/26/17 06:32 Magnesium Oxide (Mag-Ox) 400 mg Q12HR PO 09/22/17 09:45 09/26/17 10:55 Spironolactone (Aldactone) 25 mg BID PO 09/22/17 21:00 09/26/17 10:54 Potassium Chloride/Dextrose 1,000 ml @ 35 mls/hr Q24H IV 09/23/17 15:15 09/26/17 06:34 Medical Decision Making MDM Remarks 72-year-old male Burkitt's lymphoma with [employer] metastasis Plan Plan Remarks for Ommaya reservoir when platelets improved over 100,000, continue to follow up labs, transfusion of platelets, will defer to hemoncology consents in chart Liane Jj September 26, 2017 13:34
--- NOTE | 2017-09-26 16:05 | HHI.NPPN ---
Subjective General Problems: Edema Renal Failure: Acute History of Present Illness Patient is a 72 year old male with a past medical history of prostate cancer, asthma, gastroesophageal reflux, Muñoz's esophagus,hypertension, new anemia, new thrombocytopenia, rotator cuff injury, and back pain. 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 Patient was receiving Rituxan last night and developed a reaction with low grade temperature, pain, and tremor. Plan to transfer patient to intensive care unit as patient is at risk for fluid overload with blood transfusions and acute kidney injury. Nephrology is consulted for acute kidney injury with creatinine of 2.44 with a admission creatinine of 0.99. HGB is low at 7.2, Plt of 27, NA 148, CO2 14.5. Patient is resting comfortably now with his only complaint is that is dizzy with ambulation. Additional Remarks Patient up out of bed in chair. Edema remains significant but improving. (Janet Ribeiro) Review of Systems Respiratory Respiratory Remarks Denies any SOB (Janet Ribeiro) Cardiovascular Cardiac: Edema Cardiac Remarks Denies any CP (Janet Ribeiro) Gastrointestinal GI Remarks Denies any abdominal pain (Janet Ribeiro) Objective Data Data 09/26/17 09/27/17 19:00 07:00 Output Total 200 ml Balance -200 ml Output Urine Total 200 ml # Bowel Movements 1 Vital Signs Date Time Temp Pulse Resp B/P (MAP) Pulse Ox O2 Delivery O2 Flow Rate FiO2 09/26/17 13:04 98.6 74 18 146/81 (102) 96 09/26/17 13:00 73 09/26/17 10:15 98.0 74 18 143/82 (102) 96 09/26/17 08:00 95 Room Air 09/26/17 08:00 74 09/26/17 08:00 95 09/26/17 04:00 97.0 75 14 139/83 (101) 95 09/26/17 04:00 66 09/26/17 01:30 98.9 74 16 136/72 (93) 95 09/26/17 00:00 98.1 79 15 126/69 (88) 95 09/26/17 00:00 76 09/25/17 20:00 72 09/25/17 20:00 98.7 74 16 144/74 (97) 95 09/25/17 20:00 Room Air 09/25/17 19:44 21 (Janet Ribeiro) -: 09/26/17 0417 09/26/17 0417 Imaging Last Impressions Liver Ultrasound 09/20/17 0000 Signed Impressions: Service Date/Time: September 16:29 - CONCLUSION: 1. Cholecystectomy. 2. Complex cyst right kidney measures 4.4 cm. 3. Splenomegaly. Srikanth Ambrosio MD Chest X-Ray 09/05/17 0000 Signed Impressions: Service Date/Time: Tuesday, September 05, 2017 01:50 - CONCLUSION: 1. Right PICC line in superior vena cava. Subsegmental basilar airspace disease. No effusion or pneumothorax. Cory Camarena MD PICC Line Insertion 09/04/17 0600 Signed Impressions: Service Date/Time: Monday, September 04, 2017 15:12 - CONCLUSION: 1. Uncomplicated central venous Power PICC line placement. 2. The PICC line can be used immediately. Santy Burciaga Jr., MD Lumbar Puncture Fluoroscopy 09/04/17 0000 Signed Impressions: Service Date/Time: Monday, September 04, 2017 15:12 - CONCLUSION: Uncomplicated fluoroscopically guided lumbar puncture with pressures as above. Intrathecal methotrexate was administered. Santy Burciaga Jr., MD Chest CT 09/01/17 0000 Signed Impressions: Service Date/Time: Friday, September 01, 2017 16:48 - CONCLUSION: 1. No definite evidence for metastatic disease to the thorax. 2. 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 3. Scattered atelectasis and scarring in the lungs. 4. Moderate coronary calcifications. Cory Camarena MD Abdomen/Pelvis CT 09/01/17 0000 Signed Impressions: Service Date/Time: Friday, September 01, 2017 16:48 - CONCLUSION: 1. Post surgical changes with findings of cholecystectomy and prostatectomy. 2. Scattered diverticular disease of the colon without diverticulitis. 3. Lobulated cyst in the upper poles of both kidneys with some calcification on the left. 4. Retroperitoneal fat herniates through the left hemidiaphragm into the posterior left lung base. 5. No acute intraperitoneal or pelvic process to explain current clinical symptoms Gavin Lynn MD Bone Biopsy CT 08/30/17 1535 Signed Impressions: Service Date/Time: August 16:19 - CONCLUSION: 1. Uncomplicated CT guided bone marrow aspirate. 2. Uncomplicated CT guided bone marrow biopsy. Srikanth Ambrosio MD Thoracic Spine CT 08/30/17 0100 Signed Impressions: Service Date/Time: August 01:37 - CONCLUSION: 1. No fracture, subluxation or other acute abnormality of the thoracic spine. 2. Scoliosis and mild multifocal degenerative changes as above. 3. Complex appearing cystic structures of the upper poles of both kidneys. Comparison to any previous outside facility studies is recommended to confirm chronicity and stability. Contrast enhanced study of the abdomen suggested if felt clinically indicated, preferably MRI if there are no contraindications. Tim Jones MD Lumbar Spine CT 08/30/170 Signed Impressions: Service Date/Time: August 01:37 - CONCLUSION: 1. No acute fracture or acute subluxation of the lumbar spine. 2. 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 3. Mild spinal and bilateral foraminal stenosis at L4/L5. 4. Mild right and moderate left foraminal stenosis at L5/S1. 5. Benign vertebral body hemangioma of L1. No concerning lumbar spine bone lesion. Tim Jones MD Head CT 08/30/17 0100 Signed Impressions: Service Date/Time: August 01:37 - CONCLUSION: Small frontal maddy-falcine subdural blood is unchanged. Tim Jones MD Carotid Artery Ultrasound 08/30/17 0000 Signed Impressions: Service Date/Time: August 07:52 - CONCLUSION: 1. Diffuse calcified plaque throughout carotid arteries bilaterally with resultant moderate, 50-69%%, stenosis of the internal carotid arteries bilaterally and likely moderate stenosis of the left common carotid artery. 2. Antegrade vertebral artery flow bilaterally. Lopez Taylor MD Brain MRI 08/30/17 0000 Signed Impressions: Service Date/Time: August 09:27 - CONCLUSION: 1. Right frontal parafalcine abnormality on CT exam corresponds to a small meningioma. No definitive intra-or extra-axial hemorrhage. Lopez Taylor MD (Janet RibeiroP) Physical Exam General Appearance: No Acute Distress, Comfortable, Anxious (Janet Ribeiro) Throat Throat Exam: Oral Mucosa [place] & Moist (Janet Ribeiro) Pulmonary Resp Exam: Breath Sounds Equal, No Distress (Janet Ribeiro) Cardiology CV Exam: Regular, Normal Sinus Rhythm (Janet RibeiroP) Gastrointestinal/Abdomen GI Exam: Soft, Non-Tender, Distended (Janet RibeiroP) Genitourinary Exam: Flank Non-Tender (Janet Ribeiro) Integumentary Skin Exam: Clear, Warm (Janet Ribeiro) Extremeties Extremities Exam: Moderate Edema, Pitting Edema, Dependent Edema (Janet Ribeiro) Neurologic Neuro Exam: Alert, Awake, Oriented (Janet Ribeiro) Psychiatric Psych Exam: Appropriate Responses (Janet Ribeiro) Assessment/Plan Electrolyte Assessment: Hypernatremia, Hypokalemia Problem List: (1) Acute kidney injury ICD Codes: N17.9 - Acute kidney failure, unspecified Plan: Acute kidney injury with creatinine of 2.44 when consulted. Acute kidney injury most likely related to tumor lysis. On admission creatinine of 0.99. CT of abdomen on the with kidney with normal in size and shape. There is no mass, stone or hydronephrosis. Lobulated cysts in the upper poles of both kidneys with some benign-appearing calcification on the left Creatinine stable Plan Will monitor renal panel periodically Avoid nephrotoxins. Encouraged to elevate legs throughout day Continue Lasix to 40 mg BID and albumin Continue Aldactone BID Garnett removed. (2) B-cell lymphoma ICD Codes: C85.10 - Unspecified B-cell lymphoma, unspecified site Status: Acute Plan: Oncology managing (3) Anemia ICD Codes: D64.9 - Anemia, unspecified Status: Acute Plan: Monitoring (Janet Ribeiro) Problem List: (1) Acute kidney injury ICD Codes: N17.9 - Acute kidney failure, unspecified Plan: Acute kidney injury with creatinine of 2.44 when consulted. Acute kidney injury most likely related to tumor lysis. On admission creatinine of 0.99. CT of abdomen on the with kidney with normal in size and shape. There is no mass, stone or hydronephrosis. Lobulated cysts in the upper poles of both kidneys with some benign-appearing calcification on the left Creatinine stable Plan Will monitor renal panel periodically Avoid nephrotoxins. Encouraged to elevate legs throughout day Continue Lasix to 40 mg BID and albumin Continue Aldactone BID Garnett removed. Patient seen and examined, agree with above. K is better, started eating orally. (2) B-cell lymphoma ICD Codes: C85.10 - Unspecified B-cell lymphoma, unspecified site Status: Acute Plan: Oncology managing (3) Anemia ICD Codes: D64.9 - Anemia, unspecified Status: Acute Plan: Monitoring (Demi Mendez MD) Problem Qualifiers (1) Anemia: Qualified Codes: D64.9 - Anemia, unspecified Janet Ribeiro September 26, 2017 16:05 Demi Mendez MD September 26, 2017 20:31
--- NOTE | 2017-09-26 18:20 | HHI.PR ---
Subjective Remarks Resting in bed No chest pain or short of breath Objective Vitals Vital Signs Date Time Temp Pulse Resp B/P (MAP) Pulse Ox O2 Delivery O2 Flow Rate FiO2 09/26/17 18:13 96 Room Air 09/26/17 16:01 98.4 67 18 152/82 (105) 96 09/26/17 16:00 65 09/26/17 13:04 98.6 74 18 146/81 (102) 96 09/26/17 13:00 73 09/26/17 10:15 98.0 74 18 143/82 (102) 96 09/26/17 08:00 95 Room Air 09/26/17 08:00 74 09/26/17 08:00 95 09/26/17 04:00 97.0 75 14 139/83 (101) 95 09/26/17 04:00 66 09/26/17 01:30 98.9 74 16 136/72 (93) 95 09/26/17 00:00 98.1 79 15 126/69 (88) 95 09/26/17 00:00 76 09/25/17 20:00 72 09/25/17 20:00 98.7 74 16 144/74 (97) 95 09/25/17 20:00 Room Air 09/25/17 19:44 21 I/O 09/25/17 09/25/17 09/25/17 09/26/17 09/26/17 09/26/17 07:00 15:00 23:00 07:00 15:00 23:00 Intake Total 300 ml 100 ml 2077 ml 240 ml Output Total 1150 ml 2900 ml 1600 ml 200 ml Balance -850 ml 100 ml -823 ml -1360 ml -200 ml Intake Oral 300 ml 1600 ml 240 ml IV Total 100 ml 77 ml Packed Cells 400 ml Output Urine Total 1150 ml 2900 ml 1600 ml 200 ml # Bowel Movements 1 1 Result Diagram: 09/26/17 0417 09/26/17 0417 Objective Remarks GENERAL: This is a well-nourished, well-developed patient, in no apparent distress. CARDIOVASCULAR: RRR, no gallops, or rubs. RESPIRATORY: Fair air entry bilaterally. No W, R, or R GASTROINTESTINAL: Abdomen soft, non-tender, nondistended. Positive bowel sounds MUSCULOSKELETAL: Extremities without clubbing, cyanosis, or edema. Pedal pulses appreciated NEUROLOGICAL: Awake and alert. Moves all extremity. Normal speech.no focal neurological deficit Procedures Bone marrow biopsy 08/30/2017. Line: PICC A/P Problem List: (1) Anemia ICD Code: D64.9 - Anemia, unspecified Status: Acute (2) Thrombocytopenia ICD Code: D69.6 - Thrombocytopenia, unspecified Status: Acute (3) GI bleed ICD Code: K92.2 - Gastrointestinal hemorrhage, unspecified Status: Acute (4) Back pain ICD Code: M54.9 - Dorsalgia, unspecified Status: Acute (5) History of PR (myocardial infarction) ICD Code: I25.2 - Old myocardial infarction (6) B-cell lymphoma ICD Code: C85.10 - Unspecified B-cell lymphoma, unspecified site Status: Acute (7) Abnormal head CT ICD Code: R93.0 - Abnormal findings on diagnostic imaging of skull and head, not elsewhere classified (8) Hearing loss ICD Code: H91.90 - Unspecified hearing loss, unspecified ear (9) Leukocytosis ICD Code: D72.829 - Elevated white blood cell count, unspecified Assessment and Plan Assessment and Plan 09/26/17: cont current care as below , follow bmp in am 72y/o male with anemia + thrombocytopenia. History of prostate cancer, status post prostatectomy, coronary artery disease, s/p stent placement. 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 //Septic shock - resolved //E coli and strep viridans bacteremia - repeat blood cx are negative to date. Etiology of E coli in blood - No evidence of a UTI based on symptoms. ID consulted for further recommendation. Continue IV aztreonam for now.Echocardiogram shows an EF of 55-60% with moderate concentric left ventricular hypertrophy. No vegetation reported. //Tumor lysis syndrome - Resolved. Allopurinol on hold. Monitor closely. //Hyperkalemia now hypokalemia and hypocalcemia.-Continue to replace. Monitor closely. //LUCA/hypernatremia- creatinine trending down, good urine output. Continue half normal saline due to hypernatremia. Monitor BMPs every 6 hours. Cautioned to not overcorrect quickly sodium levels. Encourage p.o. hydration ( 250ml water q4-6hrs while awake). Nephrology following, appreciate recs. Pt has been started on diuril. Monitor Cr closely. //Metabolic acidosis - improved //Pancytopenia - requiring multiple transfusions ( ~daily). Transfusion and G -CSF per oncology. Transfuse 1 unit packed red blood cells and 1U PLT today 09/20/17 Transfuse to keep platelets greater than 10,000, hemoglobin greater than 7.5 Continue Neupogen //Burkitt's lymphoma receiving chemo. Management per hematology //History of prostate cancer status post XRT //Diarrhea - seems to have resolved, monitor. //Oral thrush/ mucositis give magic wash, //Scrotal edema/excoriations slight improved. Give lasix 20 mg IV scheduled and albumin IV. Monitor UOP. , monitor closely kidney function. Replenish electrolytes. Consult wound care, discussed with Edith mahoney wound care and with the nurse . Recommendation sfor wound care. Scrotal tears noted, pt having pain with urination due to urine touching those open tears and burning. Dr. Duron doesn't recommend placing a jensen as he is at high risk for bleeding due to his low plt count and also high risk for infection due to his neutropenia. Desitin cream and lidocaine jelly to be applied. Keep pt dry as much as possible. Place a condom catheter, will do but at this time, edema is too much and this cannot be done. Nystatin powder also ordered Patient however with significant scrotal edema and pain, has a Jensen placed with orange urine, fairly good OP. //Insomnia: Add temazepam Discharge Planning Continue to replace electrolytes Transfusing to keep hemoglobin and platelets within acceptable limits CM assisting with DC planning as family wishes to pursue care in [place] has a plane ticket for 09/22/17 Problem Qualifiers (1) Anemia: Qualified Codes: D64.9 - Anemia, unspecified (2) Back pain: Qualified Codes: M54.9 - Dorsalgia, unspecified (3) Hearing loss: Qualified Codes: H91.92 - Unspecified hearing loss, left ear (4) Leukocytosis: Qualified Codes: D72.829 - Elevated white blood cell count, unspecified Bonilla Henry MD September 26, 2017 18:20
[2017-09-27] VITALS: BP 149/75; PULSE 76; PULSE 84; RESP 18; TEMP 98.2; O2SAT 95
[2017-09-27 04:00] VITALS: BP 145/84; PULSE 66; PULSE 82; RESP 16; TEMP 98.6; O2SAT 95
[2017-09-27] MEDS: NYSTATIN 100,000 U/GM PWD 15 GM BTL TOPICAL SCH ×2 (04:57→14:00)
[2017-09-27] MEDS: FAMCICLOVIR 500 MG TAB PO SCH ×2 (04:57→13:27)
[2017-09-27 06:28] LABS: AUTOMATED NEUTROPHIL # 17.1 TH/MM3 (1.8-7.7); BASOPHIL % 0.1 % (0.0-2.0); HEMATOCRIT 25.2 % (39.0-51.0); HEMOGLOBIN 8.6 GM/DL (13.0-17.0); LYMPH % 1.8 % (9.0-44.0); LYMPHOCYTE # 0.3 TH/MM3 (1.0-4.8); MEAN CELL VOLUME 87.1 FL (80.0-100.0); MEAN CORPUSCULAR HEMOGLOBIN 29.9 PG (27.0-34.0); MEAN CORPUSCULAR HGB CONC 34.3 % (32.0-36.0); MEAN PLATELET VOLUME 8.8 FL (7.0-11.0); MONO % 2.9 % (0.0-8.0); MONOCYTE # 0.5 TH/MM3 (0-0.9); NEUT % 95.2 % (16.0-70.0); PLATELET COUNT 44 TH/MM3 (150-450); RED BLOOD COUNT 2.89 MIL/MM3 (4.50-5.90); RED CELL DISTRIBUTION WIDTH 14.4 % (11.6-17.2)
[2017-09-27 06:40] LABS: ALBUMIN 3.8 GM/DL (3.4-5.0); BICARBONATE 28.8 MEQ/L (21.0-32.0); CREATININE 0.88 MG/DL (0.60-1.30); DIRECT BILIRUBIN ADULT 0.9 MG/DL (0.0-0.2)
[2017-09-27 06:46] LABS: INDIRECT BILIRUBIN 1.6 MG/DL (0.0-0.8); TOTAL BILIRUBIN ADULT 2.5 MG/DL (0.2-1.0); TOTAL PROTEIN 6.3 GM/DL (6.4-8.2)
[2017-09-27 08:00] VITALS: PULSE 75
[2017-09-27 08:57] VITALS: BP 154/89; PULSE 82; RESP 18; TEMP 97.7; O2SAT 97
[2017-09-27] MEDS: BUDESONIDE-FORMOTEROL 160/4.5 MCG INHALER INH SCH (09:00)
[2017-09-27] MEDS: DOCUSATE SODIUM 50 MG/SENNA 8.6 MG TAB PO SCH (09:00)
--- NOTE | 2017-09-27 09:01 | PD.ONC.PN ---
Subjective Subjective Remarks Afebrile overnight. Patient resting in room. Tired of being in the hospital. Wants to go home. Objective Data Date Time Temp Pulse Resp B/P (MAP) Pulse Ox O2 Delivery O2 Flow Rate FiO2 09/27/17 04:00 98.6 82 16 145/84 (104) 95 09/27/17 04:00 66 09/27/17 00:00 98.2 84 18 149/75 (99) 95 09/27/17 00:00 76 09/26/17 20:00 98.2 73 16 148/80 (102) 96 09/26/17 20:00 Room Air 09/26/17 20:00 79 09/26/17 18:13 96 Room Air 09/26/17 16:01 98.4 67 18 152/82 (105) 96 09/26/17 16:00 65 09/26/17 13:04 98.6 74 18 146/81 (102) 96 09/26/17 13:00 73 09/26/17 10:15 98.0 74 18 143/82 (102) 96 09/27/17 09/27/17 09/27/17 07:00 15:00 23:00 Output Total 1400 ml Balance -1400 ml Result Diagram: 09/27/17 0450 09/27/17 0450 Laboratory Results Laboratory Tests Test 09/27/17 04:50 White Blood Count 18.0 TH/MM3 Red Blood Count 2.89 MIL/MM3 Hemoglobin 8.6 GM/DL Hematocrit 25.2 % Mean Corpuscular Volume 87.1 FL Mean Corpuscular Hemoglobin 29.9 PG Mean Corpuscular Hemoglobin Concent 34.3 % Red Cell Distribution Width 14.4 % Platelet Count 44 TH/MM3 Mean Platelet Volume 8.8 FL Neutrophils (%) (Auto) 95.2 % Lymphocytes (%) (Auto) 1.8 % Monocytes (%) (Auto) 2.9 % Eosinophils (%) (Auto) 0.0 % Basophils (%) (Auto) 0.1 % Neutrophils # (Auto) 17.1 TH/MM3 Lymphocytes # (Auto) 0.3 TH/MM3 Monocytes # (Auto) 0.5 TH/MM3 Eosinophils # (Auto) 0.0 TH/MM3 Basophils # (Auto) 0.0 TH/MM3 CBC Comment AUTO DIFF Blood Urea Nitrogen 17 MG/DL Creatinine 0.88 MG/DL Random Glucose 112 MG/DL Total Protein 6.3 GM/DL Albumin 3.8 GM/DL Calcium Level 8.0 MG/DL Alkaline Phosphatase 115 U/L Aspartate Amino Transf (AST/SGOT) 16 U/L Alanine Aminotransferase (ALT/SGPT) 30 U/L Total Bilirubin 2.5 MG/DL Direct Bilirubin 0.9 MG/DL Sodium Level 142 MEQ/L Potassium Level 3.0 MEQ/L Chloride Level 104 MEQ/L Carbon Dioxide Level 28.8 MEQ/L Anion Gap 9 MEQ/L Estimat Glomerular Filtration Rate 85 ML/MIN Indirect Bilirubin 1.6 MG/DL Administered Medications Medications (Trade) Dose Ordered Sig/Robert Route PRN Reason Start Time Stop Time Status Last Admin Dose Admin Sodium Chloride (NS Flush) 2 ml UNSCH PRN IV FLUSH FLUSH AFTER USING IV ACCESS 08/29/17 15:45 09/08/17 23:42 Sodium Chloride (NS Flush) 2 ml BID IV FLUSH 08/29/17 21:00 09/26/17 20:20 Ondansetron HCl (Zofran Inj) 4 mg Q6H PRN IV PUSH NAUSEA OR VOMITING 08/29/17 16:00 09/24/17 09:14 Chlorhexidine Gluconate (Chlorhexidine 2% Cloth) Taper DAILY@04 TOP 08/30/17 04:00 08/26/18 03:59 09/13/17 05:13 Senna/Docusate Sodium (Madina-Colace) 1 tab BID PO 08/29/17 21:00 09/26/17 10:54 Budesonide/ Formoterol Fumarate (Symbicort 160-4.5 Mcg Inh) 2 puff BID INH 08/29/17 21:00 09/26/17 20:26 Morphine Sulfate (Morphine Inj) 2 mg Q4H PRN IV PUSH BREAKTHROUGH PAIN 09/01/17 16:00 09/17/17 23:07 Sodium Chloride (NS Flush) DAILY IVF 09/05/17 09:00 09/26/17 10:55 Heparin Sodium (Porcine) (Heparin Central Flush) DAILY IV FLUSH 09/05/17 09:00 09/26/17 10:55 Sodium Chloride (NS Flush) UNSCH PRN IVF SEE PROTOCOL 09/04/17 16:00 09/10/17 21:58 Sodium Chloride (NS Flush) UNSCH PRN IVF SEE PROTOCOL 09/04/17 16:00 09/10/17 21:59 Zinc Oxide (Desitin 40% Oint) 1 applic UNSCH PRN TOPICAL DIAPER RASH 09/12/17 09:30 09/13/17 18:07 Nystatin (Mycostatin Powder) 1 applic Q8HR TOPICAL 09/12/17 09:30 09/27/17 04:57 Lorazepam (Ativan) 0.5 mg Q6H PRN PO anxiety/ sleep 09/13/17 17:30 09/21/17 09:54 Oxycodone HCl (Roxicodone) 5 mg Q4H PRN PO pain 2-5 09/16/17 11:45 09/21/17 02:08 Oxycodone HCl (Roxicodone) 10 mg Q4H PRN PO pain 6-10 09/16/17 11:45 09/25/17 21:00 Furosemide (Lasix Inj) 40 mg DAILY@0900,1800 IV PUSH 09/18/17 18:00 Future hold 09/26/17 18:30 Albumin Human 100 ml @ 60 mls/hr Q12H IV 09/18/17 09:30 09/26/17 20:21 Temazepam (Restoril) 15 mg HS PRN PO insomnia 09/19/17 10:15 09/24/17 22:49 Multivitamins (Theragran) 1 tab DAILY PO 09/21/17 18:00 09/26/17 10:54 Calcium Carbonate (Oscal) 500 mg DAILY PO 09/21/17 18:00 09/26/17 10:54 Famciclovir (Famvir) 500 mg Q8HR PO 09/21/17 22:00 09/27/17 04:57 Magnesium Oxide (Mag-Ox) 400 mg Q12HR PO 09/22/17 09:45 09/26/17 20:19 Spironolactone (Aldactone) 25 mg BID PO 09/22/17 21:00 09/26/17 20:19 Potassium Chloride/Dextrose 1,000 ml @ 35 mls/hr Q24H IV 09/23/17 15:15 09/26/17 06:34 Objective Remarks GENERAL: elderly male, upright in chair next to bed in nad. SKIN: Warm and dry. HEAD: Normocephalic. EYES: No injection or drainage. NECK: Supple, trachea midline. CARDIOVASCULAR: Regular rate and rhythm RESPIRATORY: Breath sounds equal bilaterally. No accessory muscle use. GASTROINTESTINAL: Abdomen soft, non-tender, nondistended. EXTREMITIES: No cyanosis. 1-2+ edema, bilateral lower extremities. NEUROLOGICAL: awake. normal speech. moving extremities. no focal deficit. 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 CT C/A/P showing no LAD Discussed w/ oncologist in [facility]'s home town coordination of treatment when he leaves here. He has flight schedule 10/09/17. agreed to assume care, plan to fax records, appt to be made for the Sunday after his return home. 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 09/04: PICC line placement today, start R-EPOCH, give IT MTX. 09/05: Rituxan infusion complete. patient in TLS. transferred to ICU. export freight manager consulted. 09/06: start EPOCH, window closing as patient is now leukopenic. give blood and platelets. 09/07: give D2 EPOCH. give 1 unit pRBC, check repeat H/H. 09/08: give D3 EPOCH. 1 unit pRBC, 1 unit platelets. 09/09: D4 EPOCH, 2 units platelets. 09/10: D5--finish 4th bag of EPOCH, give Cytoxan this evening. (2) Anasarca ICD Codes: R60.1 - Generalized edema Plan: --continuing to improve. --appreciate nephrology assistance. --receiving Lasix IV + spironolactone (3) Skin breakdown ICD Codes: L90.9 - Atrophic disorder of skin, unspecified Plan: --appreciate wound care assistance. improving. (4) Hypokalemia ICD Codes: E87.6 - Hypokalemia Plan: --due to diuresis. --continue to replace. Assessment 72y/o male with new diagnosis of Burkitt's lymphoma in the bone marrow given R- EPOCH chemo Plan 1. oncology clear for discharge. plan is to discharge home. follow up in clinic Sunday morning and admit to the hospital Sunday afternoon if platelet count is greater than 100K. 2. will ask nephrology for home diuretic recommendations. 3. replace potassium. Attending Statement The exam, history, and the medical decision-making described in the above note were completed with the assistance of the mid-level provider. I reviewed and agree with the findings presented. I attest that I had a [id number] encounter with the patient on the same day, and personally performed and documented my assessment and findings in the medical record. Pt seen and examined. Too well for Faisal, no longer on abx, pancytopenic but recovering, plan for Omaya next week. Pt eager to go home and wait for recovery of his bone marrow in his condo. Coordinate fu at [facility] at [facility] for labs. Plan to admit for Omaya pending platelet count >100K. Laurita Davila September 27, 2017 09:01 Shahla Duron MD September 27, 2017 17:37
[2017-09-27 09:10] LABS: BANDS 13 % (0-6); LYMPHOCYTES 4 % (9-44); MONOCYTES 3 % (0-8); NEUTROPHIL # MANUAL DIFF 16.7 TH/MM3 (1.8-7.7); POLYS (SEG NEUTROPHILS) 80 % (16-70); TOXIC GRANULATION 1+ (NORMAL)
[2017-09-27 09:14] VITALS: BP 124/74; PULSE 54; RESP 18; TEMP 97.5; O2SAT 95
[2017-09-27] MEDS: ALBUMIN 25% INJ 100 ML IV SCH (09:30)
--- NOTE | 2017-09-27 09:46 | HHI.NSPN ---
Interval History Interval History Mr. Rico is a 72-year-old man with multiple medical problems, including history of prostate cancer, status post prostatectomy, coronary artery disease, status post stent placement. Apparently he has had a recent fall before coming down to [place] and had a rotator cuff injury. He was treatedf with physical therapy. [place] the beach and he developed severe back pain, prompting him to buy Icy Hot compresses. He then went to the urgent care center where he was given a course of anti-inflammatory medication and pain medications He developed progressive shortness of breath. He noticed some bruising over the past week. He lost the hearing in his left ear suddenly. Because of the hearing he went into the urgent care, a second time. He had worsening dizziness with sensation of passing out and therefore came to the emergency room. His platelet count of 5000. He has bruising and petechia on his abdomen. His CT scan of the head showed a small focal region of increased density in the falx concerning for subdural hemorrhage. He denies any focal motor weakness. He denies any sensory loss. No seizure activity. No incontinence of stool or urine. Neurosurgical consultation was requested 08/31. Doing well. No focal weakness. No significant headaches 09/24. 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 He is alert and awake, neurologically stable. Severe persistent thrombocytopenia. Dr Duron giving transfusion of PRBC and platelets 09/26: Platelets improving however today's counts were 25,000. No changes neurologically. 09/27: a bit anxious as he wants to go home, platelets are improving, however today's count is 47,000. no changes neurologically. Labs, Micro, & Vital Signs Results Date Time Temp Pulse Resp B/P (MAP) Pulse Ox O2 Delivery O2 Flow Rate FiO2 09/27/17 09:14 97.5 54 18 124/74 (91) 95 09/27/17 08:57 97.7 82 18 154/89 (110) 97 09/27/17 04:00 98.6 82 16 145/84 (104) 95 09/27/17 04:00 66 09/27/17 00:00 98.2 84 18 149/75 (99) 95 09/27/17 00:00 76 09/26/17 20:00 98.2 73 16 148/80 (102) 96 09/26/17 20:00 Room Air 09/26/17 20:00 79 09/26/17 18:13 96 Room Air 09/26/17 16:01 98.4 67 18 152/82 (105) 96 09/26/17 16:00 65 09/26/17 13:04 98.6 74 18 146/81 (102) 96 09/26/17 13:00 73 09/26/17 10:15 98.0 74 18 143/82 (102) 96 Constitutional Vital Signs Date Time Temp Pulse Resp B/P (MAP) Pulse Ox O2 Delivery O2 Flow Rate FiO2 09/27/17 09:14 97.5 54 18 124/74 (91) 95 09/27/17 08:57 97.7 82 18 154/89 (110) 97 09/27/17 04:00 98.6 82 16 145/84 (104) 95 09/27/17 04:00 66 09/27/17 00:00 98.2 84 18 149/75 (99) 95 09/27/17 00:00 76 09/26/17 20:00 98.2 73 16 148/80 (102) 96 09/26/17 20:00 Room Air 09/26/17 20:00 79 09/26/17 18:13 96 Room Air 09/26/17 16:01 98.4 67 18 152/82 (105) 96 09/26/17 16:00 65 09/26/17 13:04 98.6 74 18 146/81 (102) 96 09/26/17 13:00 73 09/26/17 10:15 98.0 74 18 143/82 (102) 96 Review of Systems Constitutional: DENIES: Fever Neurologic: DENIES: Headache, Seizures Physical Exam GENERAL: Awake & alert sitting in chair watching TV. Affect normal. Readily interacts. No apparent distress. SKIN: Warm, dry & intact HEENT: Normocephalic, pupils equal, nonicteric sclera. RESPIRATORY: non-labored, no wheezing CARDIOVASCULAR: Regular rate rhythm GASTROINTESTINAL: Abdomen soft, non-tender MUSCULOSKELETAL: DERAS spontaneously & purposefully w/o difficulty. No evident clubbing or deformity. NEUROLOGICAL: AAOx3. Speech clear & appropriate. Follows simple commands. CN II through XII appear grossly intact. Sensation intact to light touch to all extremities. Motor strength is 5/5 to all major flexion & extension muscle groups of the extremities. Medications Current Medications Current Medications Medications (Trade) Dose Ordered Sig/Robert Route PRN Reason Start Time Stop Time Status Last Admin Dose Admin Sodium Chloride (NS Flush) 2 ml UNSCH PRN IV FLUSH FLUSH AFTER USING IV ACCESS 08/29/17 15:45 09/08/17 23:42 Sodium Chloride (NS Flush) 2 ml BID IV FLUSH 08/29/17 21:00 09/26/17 20:20 Ondansetron HCl (Zofran Inj) 4 mg Q6H PRN IV PUSH NAUSEA OR VOMITING 08/29/17 16:00 09/24/17 09:14 Miscellaneous Information 1 [id number] XX 08/29/17 15:45 Chlorhexidine Gluconate (Chlorhexidine 2% Cloth) Taper DAILY@04 TOP 08/30/17 04:00 08/26/18 03:59 09/13/17 05:13 Senna/Docusate Sodium (Madina-Colace) 1 tab BID PO 08/29/17 21:00 09/26/17 10:54 Magnesium Hydroxide (Milk Of Magnesia Liq) 30 ml Q12H PRN PO Mild constipation 08/29/17 16:00 Sennosides (Senokot) 17.2 mg Q12H PRN PO Moderate constipation 08/29/17 16:00 Bisacodyl (Dulcolax Supp) 10 mg DAILY PRN RECTAL SEVERE CONSITIPATION 08/29/17 16:00 Lactulose (Lactulose Liq) 30 ml DAILY PRN PO SEVERE CONSITIPATION 08/29/17 16:00 Budesonide/ Formoterol Fumarate (Symbicort 160-4.5 Mcg Inh) 2 puff BID INH 08/29/17 21:00 09/26/17 20:26 Morphine Sulfate (Morphine Inj) 2 mg Q4H PRN IV PUSH BREAKTHROUGH PAIN 09/01/17 16:00 09/17/17 23:07 Sodium Chloride (NS Flush) DAILY IVF 09/05/17 09:00 09/26/17 10:55 Heparin Sodium (Porcine) (Heparin Central Flush) DAILY IV FLUSH 09/05/17 09:00 09/26/17 10:55 Sodium Chloride (NS Flush) UNSCH PRN IVF SEE PROTOCOL 09/04/17 16:00 09/10/17 21:58 Heparin Sodium (Porcine) (Heparin Central Flush) UNSCH PRN IV FLUSH SEE PROTOCOL 09/04/17 16:00 Sodium Chloride (NS Flush) UNSCH PRN IVF SEE PROTOCOL 09/04/17 16:00 09/10/17 21:59 Zinc Oxide (Desitin 40% Oint) 1 applic UNSCH PRN TOPICAL DIAPER RASH 09/12/17 09:30 09/13/17 18:07 Nystatin (Mycostatin Powder) 1 applic Q8HR TOPICAL 09/12/17 09:30 09/27/17 04:57 Lorazepam (Ativan) 0.5 mg Q6H PRN PO anxiety/ sleep 09/13/17 17:30 09/21/17 09:54 Oxycodone HCl (Roxicodone) 5 mg Q4H PRN PO pain 2-5 09/16/17 11:45 09/21/17 02:08 Oxycodone HCl (Roxicodone) 10 mg Q4H PRN PO pain 6-10 09/16/17 11:45 09/25/17 21:00 Furosemide (Lasix Inj) 40 mg DAILY@0900,1800 IV PUSH 09/18/17 18:00 Future hold 09/26/17 18:30 Albumin Human 100 ml @ 60 mls/hr Q12H IV 09/18/17 09:30 09/26/17 20:21 Temazepam (Restoril) 15 mg HS PRN PO insomnia 09/19/17 10:15 09/24/17 22:49 Multivitamins (Theragran) 1 tab DAILY PO 09/21/17 18:00 09/26/17 10:54 Calcium Carbonate (Oscal) 500 mg DAILY PO 09/21/17 18:00 09/26/17 10:54 Famciclovir (Famvir) 500 mg Q8HR PO 09/21/17 22:00 09/27/17 04:57 Magnesium Oxide (Mag-Ox) 400 mg Q12HR PO 09/22/17 09:45 09/26/17 20:19 Spironolactone (Aldactone) 25 mg BID PO 09/22/17 21:00 09/26/17 20:19 Potassium Chloride/Dextrose 1,000 ml @ 35 mls/hr Q24H IV 09/23/17 15:15 09/26/17 06:34 Medical Decision Making MDM Remarks 72-year-old male Burkitt's lymphoma with [employer] metastasis, Thrombocytopenia, platelets improving, today 47,000 Plan Plan Remarks for [place] [facility] when platelets improves over 100,000 continue to follow up labs, transfusion of platelets, will defer to hemoncology Liane Jj September 27, 2017 09:46
[2017-09-27] MEDS ORDERED: WALKER WHEELS/F1 MIS (09:48)
[2017-09-27] MEDS: MAGNESIUM OXIDE 400 MG TAB PO SCH (10:16)
[2017-09-27] MEDS: CALCIUM CARBONATE 1.25 GM (CA 500 MG) TAB PO SCH (10:16)
[2017-09-27] MEDS: FUROSEMIDE 20 MG/2 ML VIAL IV PUSH SCH (10:16)
[2017-09-27] MEDS: SPIRONOLACTONE 25 MG TAB PO SCH (10:17)
[2017-09-27] MEDS: MULTIVITAMIN TAB PO SCH (10:19)
[2017-09-27] MEDS: SODIUM CHLORIDE 0.9% FLUSH 10 ML FLUSH IV FLUSH SCH (10:21)
--- NOTE | 2017-09-27 11:13 | HHI.NPPN ---
Subjective General Problems: Edema Renal Failure: Acute History of Present Illness Patient is a 72 year old male with a past medical history of prostate cancer, asthma, gastroesophageal reflux, Muñoz's esophagus,hypertension, new anemia, new thrombocytopenia, rotator cuff injury, and back pain. 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 Patient was receiving Rituxan last night and developed a reaction with low grade temperature, pain, and tremor. Plan to transfer patient to intensive care unit as patient is at risk for fluid overload with blood transfusions and acute kidney injury. Nephrology is consulted for acute kidney injury with creatinine of 2.44 with a admission creatinine of 0.99. HGB is low at 7.2, Plt of 27, NA 148, CO2 14.5. Patient is resting comfortably now with his only complaint is that is dizzy with ambulation. Additional Remarks Sitting up in chair. Plans for discharge today. (Janet Ribeiro) Review of Systems Respiratory Respiratory Remarks Denies any SOB (Janet Ribeiro) Cardiovascular Cardiac: Edema Cardiac Remarks Denies any CP (Janet Ribeiro) Gastrointestinal GI Remarks Denies any abdominal pain (Janet Ribeiro) Objective Data Data Vital Signs Date Time Temp Pulse Resp B/P (MAP) Pulse Ox O2 Delivery O2 Flow Rate FiO2 09/27/17 09:14 97.5 54 18 124/74 (91) 95 09/27/17 08:57 97.7 82 18 154/89 (110) 97 09/27/17 04:00 98.6 82 16 145/84 (104) 95 09/27/17 04:00 66 09/27/17 00:00 98.2 84 18 149/75 (99) 95 09/27/17 00:00 76 09/26/17 20:00 98.2 73 16 148/80 (102) 96 09/26/17 20:00 Room Air 09/26/17 20:00 79 09/26/17 18:13 96 Room Air 09/26/17 16:01 98.4 67 18 152/82 (105) 96 09/26/17 16:00 65 09/26/17 13:04 98.6 74 18 146/81 (102) 96 09/26/17 13:00 72 (Janet Ribeiro) -: 09/27/17 0450 09/27/17 0450 Physical Exam General Appearance: No Acute Distress, Comfortable, Anxious (Janet Ribeiro) Throat Throat Exam: Oral Mucosa Saxis & Moist (Janet Ribeiro) Pulmonary Resp Exam: Breath Sounds Equal, No Distress (Janet Ribeiro) Cardiology CV Exam: Regular, Normal Sinus Rhythm (Janet Ribeiro) Gastrointestinal/Abdomen GI Exam: Soft, Non-Tender, Distended (Janet Ribeiro) Genitourinary Exam: Flank Non-Tender (Janet Ribeiro) Integumentary Skin Exam: Clear, Warm (Janet Ribeiro) Extremeties Extremities Exam: Moderate Edema, Pitting Edema, Dependent Edema (Janet Ribeiro) Neurologic Neuro Exam: Alert, Awake, Oriented (Janet Ribeiro) Psychiatric Psych Exam: Appropriate Responses (Janet Ribeiro) Assessment/Plan Electrolyte Assessment: Hypernatremia, Hypokalemia Problem List: (1) Acute kidney injury ICD Codes: N17.9 - Acute kidney failure, unspecified Plan: Acute kidney injury with creatinine of 2.44 when consulted. Acute kidney injury most likely related to tumor lysis. On admission creatinine of 0.99. CT of abdomen on the with kidney with normal in size and shape. There is no mass, stone or hydronephrosis. Lobulated cysts in the upper poles of both kidneys with some benign-appearing calcification on the left Creatinine stable Plan Hypokalemia replacement ordered. Plans for discharge today Recommend to decrease Lasix and Aldactone from BID to daily. Labs will need to be monitor (2) B-cell lymphoma ICD Codes: C85.10 - Unspecified B-cell lymphoma, unspecified site Status: Acute Plan: Oncology managing (3) Anemia ICD Codes: D64.9 - Anemia, unspecified Status: Acute Plan: Monitoring (Janet Ribeiro) Problem List: (1) Acute kidney injury ICD Codes: N17.9 - Acute kidney failure, unspecified Plan: Acute kidney injury with creatinine of 2.44 when consulted. Acute kidney injury most likely related to tumor lysis. On admission creatinine of 0.99. CT of abdomen on the with kidney with normal in size and shape. There is no mass, stone or hydronephrosis. Lobulated cysts in the upper poles of both kidneys with some benign-appearing calcification on the left Creatinine stable Plan Hypokalemia replacement ordered. Plans for discharge today Recommend to decrease Lasix and Aldactone from BID to daily. Labs will need to be monitor. Patient seen and examined, agree with above. Decrease Lasix and Aldactone to once a day. For discharge, to follow with PCP and refer to Nephrology if needed. (2) B-cell lymphoma ICD Codes: C85.10 - Unspecified B-cell lymphoma, unspecified site Status: Acute Plan: Oncology managing (3) Anemia ICD Codes: D64.9 - Anemia, unspecified Status: Acute Plan: Monitoring (Demi Mendez MD) Problem Qualifiers (1) Anemia: Qualified Codes: D64.9 - Anemia, unspecified Janet Ribeiro September 27, 2017 11:13 Demi Mendez MD September 27, 2017 12:42
[2017-09-27] MEDS ORDERED: POTASSIUM CHLORIDE 25 MEQ EFFERVESCENT TAB PO ONE (11:15)
[2017-09-27 12:01] VITALS: PULSE 77
[2017-09-27] MEDS ORDERED: SPIR25 PO (12:24)
[2017-09-27] MEDS ORDERED: FURO1TAB60 PO (12:24)
[2017-09-27] MEDS ORDERED: FAMC500T PO (12:24)
[2017-09-27] MEDS ORDERED: FURO20TA PO (13:09)
[2017-09-27] MEDS ORDERED: POTA-163 PO (13:12)
[2017-09-27] MEDS ORDERED: POTA10TA2 PO ×2 (13:13→13:17)
[2017-09-27] MEDS: SODIUM CHLORIDE 0.9% FLUSH 10 ML FLUSH IVF SCH (13:31)
[2017-09-27] MEDS ORDERED: POTASSIUM CHLORIDE 20 MEQ CONTROLLED RELEASE TAB PO ONE (14:00)
--- NOTE | 2017-09-27 17:51 | HHI.DS ---
Discharge Summary Admission Date Aug 29, 2017 at 13:50 Discharge Date: September 27, 2017 Admitting Diagnosis GI BLEED, THROMBOCYTOPENIA (1) Anemia ICD Code: D64.9 - Anemia, unspecified Status: Acute (2) Thrombocytopenia ICD Code: D69.6 - Thrombocytopenia, unspecified Status: Acute (3) GI bleed ICD Code: K92.2 - Gastrointestinal hemorrhage, unspecified Status: Acute (4) Back pain ICD Code: M54.9 - Dorsalgia, unspecified Status: Acute (5) History of NV (myocardial infarction) ICD Code: I25.2 - Old myocardial infarction (6) B-cell lymphoma ICD Code: C85.10 - Unspecified B-cell lymphoma, unspecified site Status: Acute (7) Abnormal head CT ICD Code: R93.0 - Abnormal findings on diagnostic imaging of skull and head, not elsewhere classified (8) Hearing loss ICD Code: H91.90 - Unspecified hearing loss, unspecified ear (9) Leukocytosis ICD Code: D72.829 - Elevated white blood cell count, unspecified Procedures Bone marrow biopsy 08/30/2017. Brief History - From Admission History of Present Illness HPI This is a 72-year-old male that presented to [facility] emergency room with complaints of increasing dizziness since the beginning of this month. Approximately 2 weeks ago he reported to an urgent care center and was diagnosed with benign paroxysmal vertigo and given meclizine Medrol Ebenezer and Ultram. His symptoms progressively worsened and he reported to the emergency room today, after almost falling this morning. The patient discontinued taking meloxicam shortly after the prescription was initiated, stating that it was not helping. He has noted some dark stools. He has noted that he has been bruising easily recently. Patient also complains of acute back pain that started approximately 1 week ago. Laboratory and imaging studies were performed in the ED and the patient was noted to have severe thrombocytopenia with a platelet count of 5 , anemia with a hemoglobin 7.8 . Hematology was consulted and the patient LDH and haptoglobin laboratory studies are pending . CT brain revealed small focal density region possible in the anterior falx concerning for hemorrhage . The patient's medical history is significant for an NV in 2003 at which point he had 2 stents placed. The patient reports he was put on Plavix for several weeks then discontinued, but continues to aspirin. Patient's pertinent medical history also includes hypertension well controlled with Norvasc, Muñoz's esophagus he has had follow-up endoscopies evaluated every 2 years last procedure performed approximately 1 year ago which stated no change and he continues on Nexium. He has a history of prostate cancer and has had the prostate removed and had 38 radiation treatments in 2003. Critical care medicine was consulted. Upon my evaluation the patient was hemodynamically stable BP 104/55, heart rate 91. The patient is planned for stat transfer to [facility], and is pending transfusions of 2 PRBC, 1 of PLTs. Hematology and gastroenterology have been consulted. I have discussed the patient with Dr. Hong. History PFSH Past Medical History Asthma: Yes Cancer: Yes (PROSTATE) GERD: Yes Hypertension: Yes Influenza Vaccination: Yes ?: Not Past Surgical History Cholecystectomy: Yes Coronary Stent: Yes (2) Prostatectomy: Yes (PROSTATE CA) Social History Alcohol Use: Yes (RARELY) Tobacco Use: No Substance Use: No Allergies-Medications Allergies-Medications (Allergen,Severity, Reaction): Coded Allergies: Penicillins (Verified Allergy, Severe, Itching, 08/29/17) Quinolones (Verified Allergy, Severe, Swelling, 08/29/17) acetaminophen (Verified Allergy, Severe, Hives, 08/29/17) hydrocodone (Verified Allergy, Severe, Itching, 08/29/17) meperidine (Verified Allergy, Unknown, 08/29/17) Reported Meds & Prescriptions Reported Meds & Active Scripts Active Reported Vitamin D3 (Cholecalciferol) 1,000 Unit Tab 1,000 Units PO DAILY Ventolin Hfa 18 GM Inh (Albuterol Sulfate) 90 Mcg/Act Aer 2 Puff INH Q6H PRN Advair Diskus Inh (Fluticasone-Salmeterol Inh) 250-50 Mcg/Blist Aer 1 Puff INH BID Rinse mouth after use. Aspirin 81 Mg Chew 81 Mg CHEW DAILY Nexium (Esomeprazole DR) 40 Mg Capdr 40 Mg PO DAILY Norvasc (Amlodipine Besylate) 10 Mg Tab 10 Mg PO DAILY Altace (Ramipril) 10 Mg Cap 10 Mg PO DAILY ROS Review of Systems General / Constitutional: No: Fever, Chills Eyes: No: Diploplia HENT: Positive: Lightheadedness, No: Headaches Cardiovascular: No: Chest Pain or Discomfort, Palpitations Respiratory: No: Cough, Shortness of Breath Gastrointestinal: No: Nausea, Vomiting Genitourinary: No: Urgency, Frequency Musculoskeletal: No: Myalgias, Arthralgias Skin: No Rash, No Itching Neurologic: Positive: Weakness, Dizziness Endocrine: No: Heat Intolerance, Cold Intolerance Hematologic/Lymphatic: Positive: Easy Bruising CBC/BMP: 09/27/17 0450 09/27/17 0450 Significant Findings Laboratory Tests Test 09/25/17 05:37 09/26/17 04:17 09/27/17 04:50 White Blood Count 2.9 TH/MM3 (4.0-11.0) 18.0 TH/MM3 (4.0-11.0) Red Blood Count 2.28 MIL/MM3 (4.50-5.90) 2.55 MIL/MM3 (4.50-5.90) 2.89 MIL/MM3 (4.50-5.90) Hemoglobin 6.8 GM/DL (13.0-17.0) 7.6 GM/DL (13.0-17.0) 8.6 GM/DL (13.0-17.0) Hematocrit 19.7 % (39.0-51.0) 21.9 % (39.0-51.0) 25.2 % (39.0-51.0) Platelet Count 22 TH/MM3 (150-450) 25 TH/MM3 (150-450) 44 TH/MM3 (150-450) Neutrophils (%) (Auto) 84.8 % (16.0-70.0) 92.9 % (16.0-70.0) 95.2 % (16.0-70.0) Lymphocytes (%) (Auto) 5.9 % (9.0-44.0) 2.7 % (9.0-44.0) 1.8 % (9.0-44.0) Monocytes (%) (Auto) 8.9 % (0.0-8.0) Lymphocytes # (Auto) 0.2 TH/MM3 (1.0-4.8) 0.2 TH/MM3 (1.0-4.8) 0.3 TH/MM3 (1.0-4.8) Band Neutrophils % 13 % (0-6) 21 % (0-6) 13 % (0-6) Lymphocytes % 2 % (9-44) 1 % (9-44) 4 % (9-44) Metamyelocytes 6 % (0-1) 5 % (0-1) Myelocytes 5 % (0-0) Toxic Granulation 1+ (NORMAL) 1+ (NORMAL) 1+ (NORMAL) Platelet Estimate LOW (NORMAL) LOW (NORMAL) LOW (NORMAL) Blood Urea Nitrogen 27 MG/DL (7-18) 22 MG/DL (7-18) Random Glucose 127 MG/DL (74-106) 115 MG/DL (74-106) 112 MG/DL (74-106) Total Protein 5.2 GM/DL (6.4-8.2) 5.4 GM/DL (6.4-8.2) 6.3 GM/DL (6.4-8.2) Albumin 3.1 GM/DL (3.4-5.0) 3.3 GM/DL (3.4-5.0) Calcium Level 7.5 MG/DL (8.5-10.1) 7.6 MG/DL (8.5-10.1) 8.0 MG/DL (8.5-10.1) Aspartate Amino Transf (AST/SGOT) 9 U/L (15-37) 11 U/L (15-37) Total Bilirubin 1.8 MG/DL (0.2-1.0) 2.0 MG/DL (0.2-1.0) 2.5 MG/DL (0.2-1.0) Direct Bilirubin 0.9 MG/DL (0.0-0.2) 0.8 MG/DL (0.0-0.2) 0.9 MG/DL (0.0-0.2) Potassium Level 3.1 MEQ/L (3.5-5.1) 3.3 MEQ/L (3.5-5.1) 3.0 MEQ/L (3.5-5.1) Estimat Glomerular Filtration Rate 83 ML/MIN (>89) 82 ML/MIN (>89) 85 ML/MIN (>89) Indirect Bilirubin 0.9 MG/DL (0.0-0.8) 1.2 MG/DL (0.0-0.8) 1.6 MG/DL (0.0-0.8) Neutrophils # (Auto) 8.2 TH/MM3 (1.8-7.7) 17.1 TH/MM3 (1.8-7.7) Neutrophils % (Manual) 71 % (16-70) 80 % (16-70) Neutrophils # (Manual) 8.5 TH/MM3 (1.8-7.7) 16.7 TH/MM3 (1.8-7.7) Phosphorus Level 2.1 MG/DL (2.5-4.9) PE at Discharge GENERAL: This is a well-nourished, well-developed patient, in no apparent distress. CARDIOVASCULAR: RRR, no gallops, or rubs. RESPIRATORY: Fair air entry bilaterally. No W, R, or R GASTROINTESTINAL: Abdomen soft, non-tender, nondistended. Positive bowel sounds MUSCULOSKELETAL: Extremities without clubbing, cyanosis, or edema. Pedal pulses appreciated NEUROLOGICAL: Awake and alert. Moves all extremity. Normal speech.no focal neurological deficit Hospital Course Assessment and Plan 09/26/17: cont current care as below , follow bmp in am 72y/o male with anemia + thrombocytopenia. History of prostate cancer, status post prostatectomy, coronary artery disease, s/p stent placement. 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 //Septic shock - resolved //E coli and strep viridans bacteremia - repeat blood cx are negative to date. Etiology of E coli in blood - No evidence of a UTI based on symptoms. ID consulted for further recommendation. Continue IV aztreonam for now.Echocardiogram shows an EF of 55-60% with moderate concentric left ventricular hypertrophy. No vegetation reported. //Tumor lysis syndrome - Resolved. Allopurinol on hold. Monitor closely. //Hyperkalemia now hypokalemia and hypocalcemia.-Continue to replace. Monitor closely. //LUCA/hypernatremia- creatinine trending down, good urine output. Continue half normal saline due to hypernatremia. Monitor BMPs every 6 hours. Cautioned to not overcorrect quickly sodium levels. Encourage p.o. hydration ( 250ml water q4-6hrs while awake). Nephrology following, appreciate recs. Pt has been started on diuril. Monitor Cr closely. //Metabolic acidosis - improved //Pancytopenia - requiring multiple transfusions ( ~daily). Transfusion and G -CSF per oncology. Transfuse 1 unit packed red blood cells and 1U PLT today 09/20/17 Transfuse to keep platelets greater than 10,000, hemoglobin greater than 7.5 Continue Neupogen //Burkitt's lymphoma receiving chemo. Management per hematology //History of prostate cancer status post XRT //Diarrhea - seems to have resolved, monitor. //Oral thrush/ mucositis give magic wash, //Scrotal edema/excoriations slight improved. Give lasix 20 mg IV scheduled and albumin IV. Monitor UOP. , monitor closely kidney function. Replenish electrolytes. Consult wound care, discussed with Edith mahoney wound care and with the nurse . Recommendation sfor wound care. Scrotal tears noted, pt having pain with urination due to urine touching those open tears and burning. Dr. Duron doesn't recommend placing a jensen as he is at high risk for bleeding due to his low plt count and also high risk for infection due to his neutropenia. Desitin cream and lidocaine jelly to be applied. Keep pt dry as much as possible. Place a condom catheter, will do but at this time, edema is too much and this cannot be done. Nystatin powder also ordered Patient however with significant scrotal edema and pain, has a Jensen placed with orange urine, fairly good OP. //Insomnia: Add temazepam [id number] encounter performed with the patient on discharge day, as well as physical exam, summary of hospitalization course and postdischarge plan has been D/W the patient. D/W nurse D/W complex case manager. Discharge medications reviewed and printed and signed, post discharge follow up visit with PCP and other specialist as well as Brief hospital course and discharge summary has been placed. Pt Condition on Discharge: Fair Discharge Disposition: Discharge Home Discharge Time: > 30 minutes Discharge Instructions DIET: Follow Instructions for: Heart Healthy Diet Activities you can perform: See Additionl Instruction Other Activity Instructions: PT Follow up Referrals: Oncology/Hematology - 10/01/17 @ [facility] with Shahla Duron MD New Orders: BASIC METABOLIC PROF - 2-3 Days New Medications: Furosemide (Furosemide) 20 Mg Tab 20 MG PO DAILY for diuretic, #30 TAB 0 Refills Potassium Chloride ER (Potassium Chloride ER) 10 Meq Tab 10 MEQ PO DAILY for Electrolyte Replacement, #5 TAB 0 Refills Walker with Front Wheels (Walker with Front Wheels) 1 Mis Mis EA .XX DIRECTED, #1 0 Refills Famciclovir (Famciclovir) 500 Mg Tab 500 MG PO Q8HR for antiviral, #30 TAB Spironolactone (Aldactone) 25 Mg Tab 25 MG PO DAILY for htn, #30 TAB Continued Medications: Albuterol 18 GM Inh (Ventolin Hfa 18 GM Inh) 90 Mcg/Act Aer 2 PUFF INH Q6H PRN for SHORTNESS OF BREATH, #1 INHALER 0 Refills Cholecalciferol (Vitamin D3) 1,000 Unit Tab 1000 UNITS PO DAILY for Nutritional Supplement, #1 BOTTLE [address] (Nexium) 40 Mg Capdr 40 MG PO DAILY, CAP 0 Refills Fluticasone-Salmeterol Inh (Advair Diskus Inh) 250-50 Mcg/Blist Aer 1 PUFF INH BID, #1 INHALER 0 Refills Rinse mouth after use. Bonilla Henry MD September 27, 2017 17:50
[2017-09-28 03:49] LABS: MITOCHONDRIAL ABS LESS THAN 20.0 U (<=20.0)
[2017-09-28] MEDS ORDERED: SPIRONOLACTONE 25 MG TAB PO SCH (09:00)
[2017-09-28] MEDS ORDERED: FUROSEMIDE 20 MG TAB PO SCH (09:00)
[2017-09-28 11:51] LABS: CERULOPLASMIN 22 mg/dL (18-36)
== END 2017-09-27 14:18 | disposition home or self-care (01) | DRG 840 ==
LOC: PHED 10:31 → PHEDA 13:50 → HIMN 17:55 → N07B 08-31 22:58 → HCIN 09-02 14:10 → HCVI 09-05 19:08 → HCIN 09-12 16:29
PROVIDERS: ADMIT Hospitalist; ATTEND Hospitalist
PROC: 6A551Z2 Pheresis of Platelets, Multiple (ICD-10-PCS; principal; 2017-08-29)
PROC: 30233K1 Transfusion of Nonautologous Frozen Plasma into Peripheral Vein, Percutaneous Approach (ICD-10-PCS; 2017-08-29)
PROC: 30233N1 Transfusion of Nonautologous Red Blood Cells into Peripheral Vein, Percutaneous Approach (ICD-10-PCS; 2017-08-29)
PROC: 07DR3ZX Extraction of Iliac Bone Marrow, Percutaneous Approach, Diagnostic (ICD-10-PCS; 2017-08-30)
PROC: 009U3ZX Drainage of Spinal Canal, Percutaneous Approach, Diagnostic (ICD-10-PCS; 2017-09-04)
PROC: 05HY33Z Insertion of Infusion Device into Upper Vein, Percutaneous Approach (ICD-10-PCS; 2017-09-04)
PROC: 3E03305 Introduction of Other Antineoplastic into Peripheral Vein, Percutaneous Approach (ICD-10-PCS; 2017-09-04)
PROC: 3E0R305 Introduction of Other Antineoplastic into Spinal Canal, Percutaneous Approach (ICD-10-PCS; 2017-09-04)
PROC: 0T9B70Z Drainage of Bladder with Drainage Device, Via Natural or Artificial Opening (ICD-10-PCS; 2017-09-14)
DX: C83.70 Burkitt lymphoma, unspecified site (principal); E88.3 Tumor lysis syndrome; A41.51 Sepsis due to Escherichia coli [E. coli]; R65.21 Severe sepsis with septic shock; L89.329 Pressure ulcer of left buttock, unspecified stage; D61.818 Other pancytopenia; E87.0 Hyperosmolality and hypernatremia; E87.2 Acidosis; B37.0 Candidal stomatitis; S06.5X9A Traumatic subdural hemorrhage with loss of consciousness of unspecified duration, initial encounter; C85.19 Unspecified B-cell lymphoma, extranodal and solid organ sites; D62 Acute posthemorrhagic anemia; N17.9 Acute kidney failure, unspecified; K92.2 Gastrointestinal hemorrhage, unspecified; D69.6 Thrombocytopenia, unspecified; N28.1 Cyst of kidney, acquired; I10 Essential (primary) hypertension; J45.909 Unspecified asthma, uncomplicated; K21.9 Gastro-esophageal reflux disease without esophagitis; I25.10 Atherosclerotic heart disease of native coronary artery without angina pectoris; I25.2 Old myocardial infarction; K22.70 Barrett's esophagus without dysplasia; H81.10 Benign paroxysmal vertigo, unspecified ear; D32.9 Benign neoplasm of meninges, unspecified; D18.09 Hemangioma of other sites; E66.9 Obesity, unspecified; M48.061 Spinal stenosis, lumbar region without neurogenic claudication; Z68.30 Body mass index [BMI] 30.0-30.9, adult; H91.92 Unspecified hearing loss, left ear; Z90.79 Acquired absence of other genital organ(s); R23.3 Spontaneous ecchymoses; S46.009A Unspecified injury of muscle(s) and tendon(s) of the rotator cuff of unspecified shoulder, initial encounter; W19.XXXA Unspecified fall, initial encounter; Y93.9 Activity, unspecified; M41.9 Scoliosis, unspecified; M51.34 Other intervertebral disc degeneration, thoracic region; M43.16 Spondylolisthesis, lumbar region; M19.90 Unspecified osteoarthritis, unspecified site; R19.7 Diarrhea, unspecified; G25.1 Drug-induced tremor; T45.1X5A Adverse effect of antineoplastic and immunosuppressive drugs, initial encounter; Y92.239 Unspecified place in hospital as the place of occurrence of the external cause; E83.51 Hypocalcemia; E83.39 Other disorders of phosphorus metabolism; E87.5 Hyperkalemia; E87.6 Hypokalemia; N50.89 Other specified disorders of the male genital organs; E80.7 Disorder of bilirubin metabolism, unspecified; G47.00 Insomnia, unspecified; K12.30 Oral mucositis (ulcerative), unspecified; R60.1 Generalized edema; K57.30 Diverticulosis of large intestine without perforation or abscess without bleeding; R63.3 Feeding difficulties; H91.90 Unspecified hearing loss, unspecified ear; T50.2X5A Adverse effect of carbonic-anhydrase inhibitors, benzothiadiazides and other diuretics, initial encounter; Z79.82 Long term (current) use of aspirin; Z88.6 Allergy status to analgesic agent; Z95.5 Presence of coronary angioplasty implant and graft; Z92.3 Personal history of irradiation; Z90.49 Acquired absence of other specified parts of digestive tract; Z88.0 Allergy status to penicillin; Z86.010 Personal history of colon polyps; Z85.46 Personal history of malignant neoplasm of prostate
CPT/HCPCS: 36430; 36569; 38222; 62270; 70450; 70553; 71045; 71260; 72128; 72131; 74177; 76705; 76937; 77001; 77003; 77012; 80048; 80053; 80069; 80074; 80076; 80202; 81001; 82103; 82248; 82390; 82728; 82805; 82945; 83010; 83520; 83540; 83550; 83605; 83615; 83735; 84100; 84132; 84133; 84155; 84157; 84484; 84550; 85007; 85014; 85018; 85025; 85027; 85044; 85049; 85097; 85384; 85397; 85610; 85730; 86038; 86255; 86703; 86850; 86880; 86900; 86901; 86920; 86927; 87040; 87077; 87186; 87205; 87641; 88108; 88184; 88185; 88237; 88264; 88280; 88305; 88311; 88313; 88341; 88342; 88377; 89051; 93005; 93306; 93880; 94150; 94640; 94664; 96360; 96361; 99152; 99153; A9579; C1751; C1830; C9113; J0610; J1442; J1450; J1626; J1642; J1720; J1940; J2250; J2270; J2405; J2783; J3010; J3370; J3480; J7030; J7040; J7050; J7070; J7120; J7512; J9000; J9070; J9181; J9250; J9310; J9370; P9016; P9017; P9035; P9040; P9045; P9047; Q9963; Q9967

== ENCOUNTER 2017-10-01 11:02 | Inpatient (IN) | END 2017-10-02 16:11 | disposition home or self-care (01) | DRG 841 | DX: C83.70 Burkitt lymphoma, unspecified site (principal); A04.72 Enterocolitis due to Clostridium difficile, not specified as recurrent; C79.40 Secondary malignant neoplasm of unspecified part of nervous system; D69.6 Thrombocytopenia, unspecified; K92.2 Gastrointestinal hemorrhage, unspecified; D64.81 Anemia due to antineoplastic chemotherapy; I10 Essential (primary) hypertension; Z53.09 Procedure and treatment not carried out because of other contraindication; G89.29 Other chronic pain; J45.909 Unspecified asthma, uncomplicated; K21.9 Gastro-esophageal reflux disease without esophagitis; M54.9 Dorsalgia, unspecified; T45.1X5A Adverse effect of antineoplastic and immunosuppressive drugs, initial encounter; E87.6 Hypokalemia; N28.9 Disorder of kidney and ureter, unspecified; Z90.49 Acquired absence of other specified parts of digestive tract; Z85.46 Personal history of malignant neoplasm of prostate; Z95.5 Presence of coronary angioplasty implant and graft; Z90.79 Acquired absence of other genital organ(s); Z88.6 Allergy status to analgesic agent; Z88.1 Allergy status to other antibiotic agents; Z88.5 Allergy status to narcotic agent; Z88.0 Allergy status to penicillin; Z88.8 Allergy status to other drugs, medicaments and biological substances ==